=== PATIENT | male | born 1965 | race Caucasian/White ===

== ENCOUNTER 2022-10-12 15:38 | Outpatient (OUT) | payer OTHER, SELFPAY ==
[2022-10-12 16:20] LABS: Basophils Absolute Auto 0.1 10^3/uL (0.0-0.1); Basophils Percent Auto 0.6 % (0.2-2.0); Eosinophils Absolute Auto 0.2 10^3/uL (0.0-0.7); Eosinophils Percent Auto 2.6 % (0.9-7.0); Hematocrit 47.7 % (42.0-54.0); Hemoglobin 15.4 g/dL (14.0-18.0); Immature Granulocytes Abs Auto 0.04 10^3/uL (0.00-0.03); Immature Granulocytes Pct Auto 0.5 % (0.0-0.5); Lymphocytes Absolute Auto 2.5 10^3/uL (1.2-3.8); Lymphocytes Percent Auto 31.2 % (20.5-60.0); Mean Corpuscular HGB Conc 32.3 g/dL (29.9-35.2); Mean Corpuscular Hemoglobin 31.2 pg (25.9-34.0); Mean Corpuscular Volume 96.6 fL (80.0-94.0); Mean Platelet Volume 11.2 fL (9.5-13.5); Monocytes Absolute Auto 0.7 10^3/uL (0.3-0.8); Monocytes Percent Auto 8.2 % (1.7-12.0); Neutrophils Absolute Auto 4.6 10^3/uL (1.4-6.5); Neutrophils Percent Auto 56.9 % (43.0-75.0); Platelet Count 231 10^3/uL (150-450); Red Blood Count 4.94 10^6/uL (4.70-6.10); Red Cell Distribution Width 13.3 % (11.0-15.0); White Blood Count 8.1 10^3/uL (4.0-11.0)
[2022-10-12 16:30] LABS: Estimated Average Glucose 126 mg/dL
[2022-10-12 16:56] LABS: Prostate Specific Antigen Scrn 1.74 ng/mL (<=4.00)
[2022-10-12 17:05] LABS: Alanine Aminotransferase 37 U/L (16-63); Albumin Globulin Ratio 0.8; Albumin Level 3.8 g/dL (3.4-5.0); Alkaline Phosphatase 73 U/L (46-116); Anion Gap 13.9; Aspartate Amino Transferase 14 U/L (15-37); BUN Creatinine Ratio 14.1; Bilirubin Direct 0.2 mg/dL (0.0-0.2); Bilirubin Total 1.2 mg/dL (0.2-1.0); Calcium 9.2 mg/dL (8.5-10.1); Carbon Dioxide 28.1 mmol/L (21.0-32.0); Chloride 103 mmol/L (98-107); Chol HDL Ratio 4.4; Cholesterol 172 mg/dL (<=200); Estimated GFR (African America 46 (>=60); Estimated GFR (Non-African Ame 38 (>=60); Globulin 4.5 g/dL; Glucose 98 mg/dL (74-106); HDL Cholesterol 39 mg/dL (40-60); Sodium 141 mmol/L (136-145); Thyroid Stimulating Hormone 1.961 uIU/mL (0.358-3.740); Total Protein 8.3 g/dL (6.4-8.2); Triglycerides 110 mg/dL (<=150)
== END 2022-10-12 15:39 ==
PROVIDERS: PCP Family Medicine; Visit Provider Family Medicine
DX: R60.9 Edema, unspecified (principal); R06.09 Other forms of dyspnea; E78.5 Hyperlipidemia, unspecified; I11.0 Hypertensive heart disease with heart failure; I50.30 Unspecified diastolic (congestive) heart failure; R73.09 Other abnormal glucose
CPT/HCPCS: 36415; 80048; 80061; 80076; 83036; 83880; 84443; 85025; G0103

== ENCOUNTER 2022-10-25 07:58 | Outpatient (OUT) | payer OTHER, SELFPAY ==
--- NOTE | 2022-10-25 08:00 | CA_ITS ---
Patient: ROB FRANK Exam Date: 10/25/2022 : 1965 Gender:M Ordering : DR Storm Guevara . Admission #: [id number] Family : Order #: [id number] CLICK HERE TO VIEW EXAM ECHOCARDIOGRAM REPORT PROCEDURE: CA ECHO DOPPLER COMPLETE INDICATIONS: Dyspnea on exertion, edema, h/o ablation COMPARISON: None. DESCRIPTION: COMPLETE ECHOCARDIOGRAM Real-time transthoracic echocardiography with 2D, M-mode, spectral and color flow Doppler performed. QUALITY: Technical quality was good. LEFT VENTRICLE: Normal chamber size. Normal systolic function. LV EF: Normal left ventricular ejection fraction, (>55%). DIASTOLIC: Not adequately assessed due to heart rhythm. ATRIAL SEPTUM: Visually appears intact. LEFT ATRIUM: Moderate dilatation. RIGHT ATRIUM: Moderate dilatation. RIGHT VENTRICLE: Normal chamber size. Normal systolic function. TRICUSPID VALVE: Normal mobility and thickness. No stenosis with mild regurgitation. Doppler studies reveal moderately (45-60) elevated right sided pressures. RVSP 50 mmHg MITRAL VALVE: Normal mobility and thickness. No evidence of mitral valve stenosis. There is no mitral annular calcification. Trivial mitral regurgitation. AORTIC VALVE: Normal trileaflet appearance. No visible sclerosis. Normal leaflet mobility. No evidence of aortic valve stenosis. No aortic regurgitation. AORTIC ROOT: Normal diameter and appearance. PULMONIC VALVE: Normal thickness and mobility. No stenosis. No regurgitation. PERICARDIUM: No evidence of pericardial effusion. IVC: IVC is dilated (3.1 cm) with no collapse. PLEURA: CONCLUSION: 1. Normal left ventricular systolic function. LVEF is 55 to 60%. 2. Normal right ventricular size and systolic function. 3. Moderate biatrial dilatation. 4. Mild tricuspid regurgitation. 5. Moderately elevated right-sided pressures. RVSP is 50 mmHg. Adult Echocardiography Procedure Report Left Ventricle LVEDD (3.7 - 5.6 cm): 4.72 cm LVESD (2.2 - 4.0 cm): 2.59 cm LVIVS thickness (0.6 - 1.2 cm): 1.50 cm LVPW thickness (0.5 - 1.0 cm): 1.16 cm LVOT Max Gradient: 1.86 mm[Hg], 2.34 mm[Hg] LVOT Area (cm2): 0.72 m/s Peak Velocity (LVOT): 0.68 m/s, 0.76 m/s LVOT Diameter 2.35 cm Left Atrium LA Volume Index (2D A2C): 44.43 ml/m2 Left Atrium Systolic Dimension: 4.13 cm Mitral Valve Mitral Valve E-Wave Peak Velocity: 0.96 m/s Right Ventricle Aorta AO Root Diam: 3.66 cm Aortic Valve AoV Area (Peak Hesham): 3.33 cm2, 3.31 cm2, 3.34 cm2 Peak Velocity(Antegrade Flow): 0.89 m/s, 0.99 m/s Peak Gradient(Antegrade Flow): 3.17 mm[Hg], 3.91 mm[Hg] Tricuspid Valve Peak Velocity (Regurgitant Flow): 2.97 m/s Pulmonic Valve Peak Velocity: 0.76 m/s Peak Gradient: 2.31 mm[Hg], 2.27 mm[Hg] Right Atrium Right Atrium Systolic Pressure: 84.80 ml, 84.80 ml Dictated by: Erick Wade M.D. on 10/26/2022 at 17:50 Approved by: Erick Wade M.D. on 10/26/2022 at 17:53
== END 2022-10-25 07:59 | disposition home or self-care (01) ==
LOC: CARD 07:58
PROVIDERS: PCP Family Medicine; Visit Provider Family Medicine
DX: R60.9 Edema, unspecified (principal); R06.09 Other forms of dyspnea; I07.1 Rheumatic tricuspid insufficiency
CPT/HCPCS: 93306

== ENCOUNTER 2023-07-17 14:23 | Outpatient (OUT) | payer OTHER, SELFPAY ==
[2023-07-17 14:44] LABS: Basophils Absolute Auto 0.1 10^3/uL (0.0-0.1); Basophils Percent Auto 0.8 % (0.2-2.0); Eosinophils Absolute Auto 0.2 10^3/uL (0.0-0.7); Hematocrit 45.6 % (42.0-54.0); Hemoglobin 14.6 g/dL (14.0-18.0); Immature Granulocytes Abs Auto 0.06 10^3/uL (0.00-0.03); Immature Granulocytes Pct Auto 0.7 % (0.0-0.5); Lymphocytes Absolute Auto 2.3 10^3/uL (1.2-3.8); Lymphocytes Percent Auto 27.3 % (20.5-60.0); Mean Corpuscular Hemoglobin 32.3 pg (25.9-34.0); Mean Corpuscular Volume 100.9 fL (80.0-94.0); Mean Platelet Volume 10.7 fL (9.5-13.5); Monocytes Absolute Auto 0.8 10^3/uL (0.3-0.8); Monocytes Percent Auto 9.4 % (1.7-12.0); Neutrophils Percent Auto 59.8 % (43.0-75.0); Platelet Count 249 10^3/uL (150-450); Red Blood Count 4.52 10^6/uL (4.70-6.10); Red Cell Distribution Width 13.2 % (11.0-15.0); White Blood Count 8.4 10^3/uL (4.0-11.0)
[2023-07-17 14:59] LABS: BUN Creatinine Ratio 11.5; Calcium 8.7 mg/dL (8.5-10.1); Carbon Dioxide 26.3 mmol/L (21.0-32.0); Chloride 105 mmol/L (98-107); Estimated GFR (African America 55 (>=60); Estimated GFR (Non-African Ame 45 (>=60); Glucose 99 mg/dL (74-106); Potassium 4.3 mmol/L (3.5-5.1); Sodium 141 mmol/L (136-145)
[2023-07-17 15:04] LABS: INR 1.01; Prothrombin Time 10.7 sec (9.0-11.6)
== END 2023-07-17 14:24 | disposition home or self-care (01) ==
PROVIDERS: PCP Family Medicine; Visit Provider Nurse Practitioner
DX: I48.91 Unspecified atrial fibrillation (principal)
CPT/HCPCS: 36415; 80048; 85025; 85610

== ENCOUNTER 2023-07-26 09:10 | Inpatient (IN) | payer OTHER, SELFPAY ==
[2023-07-26] VITALS (20 sets, daily range): BP systolic 108–148; BP diastolic 71–101; PULSE 86–114; RESP 2–37; TEMP 36.5–36.8; O2SAT 89–96; BMI 49.8; BMI 51.3
--- OUTSIDE RECORDS SUMMARY | 2023-07-26 09:15 | XMS_ITS | CCD ---
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 Care Disintegrator Operator Name Role Phone DR COSTA GUEVARA Attending Unavailable DR COSTA GUEVARA Consulting Unavailable DR COSTA GUEVARA Admitting Unavailable MD Costa Guevara Primary Care Provider [phone] DO Bassem Lopez Emergency Provider DO Arturo Dolan Admit Provider DO Arturo Dolan Attending Provider MD Costa Guevara Primary Care Provider [phone] KENDRICK Mckinney Emergency Provider Edwin Mckinney Attending Unavailable Edwin Mckinney Admitting Unavailable Costa Guevara Primary Care Unavailable [place] Consulting Unavailable Arturo Dolan Attending UnavailArturo Tomlinson Admitting UnavailCosta Petersen Primary Care Unavailable Delvis Myles Consulting Unavailable Mony Orozco Consulting Unavailable Tejas Schreiber Consulting Unavail able Linh Paz Consulting Unavailable Anthony Rossi Consulting Unavailab Leigh Lopez Consulting Unavailable Sweta Colbert Consulting Unavailable Carrie Benedict Consulting Unavailab Corky Bolden Consulting Unavailable Shanel Card Consulting Unavailable Shana Angeles Consulting Unavailable Medications Current Medications Medication Drug Class(es) Dates Sig (Normalized) Sig (Original) acetaminophen 325 mg / oxyCODONE hydrochloride 5 mg oral tablet (1 source) Opioid Agonist Start: 05-28-2023 take 1 tablet by mouth every six hours Oxycodone-Acetamin ophen (Percocet) 5-325 mg tablet Active 1 TAB PO Q6H 12 3 May 28, 2023 apixaban 5 mg oral tablet (2 sources) Factor Xa Inhibitor Start: 05-27-2023 take 1 tablet by mouth twice daily Apixaban (Eliquis) 5 mg Tablet Active 5 MG PO Twice daily 60 May 27, 2023 12:00am cefuroxime 500 mg oral tablet (2 sources) Cephalosporin Antibacterial Start: 05-27-2023 take 500 mg by mouth twice daily Cefuroxime Axetil Active 500 MG PO Twice daily 20 May 27, 2023 12:00am diclofenac sodium 75 mg delayed release oral tablet (2 sources) Nonsteroidal Anti-inflammatory Drug Start: 05-24-2023 take 75 mg by mouth twice daily Diclofenac Sodium Active 75 MG PO Twice daily May 24, 2023 12:00am 24 hr dilTIAZem hydrochloride 120 mg extended release oral capsule (2 sources) Calcium Channel Anel Start: 05-27-2023 take 120 mg by mouth once daily Diltiazem Hcl Active 120 MG PO Daily 30 May 27, 2023 12:00am furosemide 40 mg oral tablet (3 sources) Loop Diuretic Start: 10-09-2019 take 1 tablet by mouth once daily in the morning Furosemide (Lasix) 40 mg tablet Active 40 MG PO Every morning October 08, 2019 11:00pm pantoprazole 40 mg delayed release oral tablet (3 sources) Proton Pump Inhibitor Start: 03-24-2019 take 1 tablet by mouth once daily Pantoprazole (Protonix) 40 mg tablet,delayed release (DR/EC) Active 40 MG PO Daily March 24, 2019 12:00am microencapsulated potassium chloride 20 meq extended release oral tablet (2 sources) Start: 05-27-2023 Potassium Chloride (Klor-Con M20) 20 mEq Tablet,Er Particles/Crystals Active 20 MEQ PO Daily May 27, 2023 12:00am saccharomyces boulardii 250 mg oral capsule (2 sources) Start: 05-27-2023 take 250 mg by mouth twice daily at mealtime Saccharomyces Boulardii Active 250 MG PO Twice daily with meals May 27, 2023 12:00am Completed/Discontinued Medications Medication Drug Class(es) Dates Sig (Normalized) Sig (Original) acetaminophen 325 mg / HYDROcodone bitartrate 5 mg oral tablet (3 sources) Opioid Agonist Start: 03-24-20 End: 10-08-19 take 1 tablet by mouth every six hours Hydrocodone-Acetaminop hen ([place]) 5-325 mg tablet Discontinued 1 TAB PO Q6H 02 05March 24, 2019 October 08, 2019 1:42pm amLODIPine 10 mg oral tablet (2 sources) Dihydropyridine Calcium Channel Anel Start: 05-24-19 End: 05-27-19 take 10 mg by mouth once daily Amlodipine Discontinued 10 MG PO Daily May 24, 2023 12:00am May 27, 2023 11:59am amoxicillin 875 mg / clavulanate 125 mg oral tablet (3 sources) Penicillin-class Antibacterial Start: 03-24-20 End: 10-08-19 take 1 tablet by mouth twice daily Amoxicillin-Pot Clavulanate (Augmentin) 875-125 mg tablet Discontinued 1 TAB PO Twice daily 22 02March 24, 2019 12:00am October 08, 2019 1:42pm carvedilol 25 mg oral tablet (2 sources) alpha-Adrenergic Anel, beta-Adrenergic Anel Start: 05-24-19 End: 05-27-19 take 25 mg by mouth once daily Carvedilol Discontinued 25 MG PO Daily May 24, 2023 12:00am May 27, 2023 11:59am diphenhydrAMINE hydrochloride 25 mg oral capsule (3 sources) Histamine-1 Receptor Antagonist Start: 09-04-19 End: 05-24-19 take 1 capsule by mouth every six hours Diphenhydramine Hcl (Benadryl) 25 mg capsule Discontinued 25 MG PO Q6H September 02, 2020 11:00pm May 24, 2023 8:40pm until resolution of severe allergic reaction doxycycline hyclate 100 mg oral tablet (3 sources) Tetracycline-class Drug Start: 02-29-20 End: 05-24-19 take 100 mg by mouth twice daily Doxycycline Hyclate Discontinued 100 MG PO Twice daily February 27, 2021 11:00pm May 24, 2023 8:40pm hydroCHLOROthiazide 25 mg oral tablet (2 sources) Thiazide Diuretic Start: 05-24-19 End: 05-27-19 take 25 mg by mouth once daily Hydrochlorothiazide Discontinued 25 MG PO Daily May 24, 2023 12:00am May 27, 2023 11:59am ibuprofen 800 mg oral tablet (3 sources) Nonsteroidal Anti-inflammatory Drug Start: 10-08-19 End: 05-24-19 take 800 mg by mouth three times daily Ibuprofen Discontinued 800 MG PO Three times daily October 07, 2019 11:00pm May 24, 2023 8:40pm irbesartan 300 mg oral tablet (2 sources) Angiotensin 2 Receptor Anel Start: 05-24-19 End: 05-27-19 24 take 300 mg by mouth once daily Irbesartan Discontinued 300 MG PO Daily May 24, 2023 12:00am May 27, 2023 11:59am losartan potassium 50 mg oral tablet (3 sources) Angiotensin 2 Receptor Anel Start: 10-09-19 End: 05-24-19 24 take 50 mg by mouth once daily Losartan Discontinued 50 MG PO Daily October 08, 2019 11:00pm May 24, 2023 8:41pm meclizine hydrochloride 25 mg oral tablet (3 sources) Antiemetic Start: 09-04-19 End: 05-24-19 take 25 mg by mouth three times daily Meclizine Discontinued 25 MG PO Three times daily September 02, 2020 11:00pm May 24, 2023 8:43pm Problems Problem Classification Problem Date Documented Date Episodic/Chronic Abdominal hernia (3 sources) Hiatal hernia; Translations: [Diaphragmatic hernia without obstruction or gangrene] 04-17-2023 Episodic Bacterial infection; unspecified site (11 sources) Bacteremia caused by Gram-positive bacteria; Translations: [Bacteremia] Onset: 05-24-2023 05-26-2023 Episodic Cardiac dysrhythmias (11 sources) Supraventricular tachycardia; Translations: [Supraventricular tachycardia] Onset: 05-24-2023 04-17-2023 Chronic Conditions associated with dizziness or vertigo (3 sources) Benign paroxysmal positional vertigo; Translations: [Benign paroxysmal vertigo, unspecified ear] 04-17-2023 Episodic Congestive heart failure; nonhypertensive (6 sources) Congestive heart failure; Translations: [Heart failure, unspecified] 04-17-2023 Chronic Diabetes mellitus without complication (8 sources) Prediabetes; Translations: [Prediabetes] Onset: 01-19-2024 12-13-2023 Episodic E Codes: Natural/environment (3 sources) Dog bite - wound; Translations: [Bitten by dog, initial encounter] 04-17-2023 Episodic Esophageal disorders (3 sources) Gastroesophageal reflux disease; Translations: [Gastro-esophageal reflux disease without esophagitis] 04-17-2023 Chronic Essential hypertension (6 sources) Benign hypertension; Translations: [Essential (primary) hypertension] 04-17-2023 Chronic Lymphadenitis (4 sources) Localized enlarged lymph nodes; Translations: [LOCALIZED ENLARGED LYMPH NODES] Onset: 03-10-2021 Episodic Other connective tissue disease (1 source) Foot pain; Translations: [Pain in right foot] 05-28-2023 Episodic Other lower respiratory disease (3 sources) Dyspnea; Translations: [Dyspnea, unspecified] 04-17-2023 Episodic Other lower respiratory disease (3 sources) Hypoxia; Translations: [Hypoxemia] 05-24-2023 Episodic Other lower respiratory disease (4 sources) Hypoxemia; Translations: [Hypoxemia] Onset: 05-24-2023 05-24-2023 Episodic Other nutritional; endocrine; and metabolic disorders (3 sources) Morbid obesity; Translations: [Morbid (severe) obesity due to excess calories] 04-17-2023 Chronic Other nutritional; endocrine; and metabolic disorders (2 sources) Body mass index 40+ - severely obese; Translations: [Body mass index (BMI) 50.0-59.9, adult] 05-24-2023 Chronic Other nutritional; endocrine; and metabolic disorders (3 sources) Body mass index (BMI) 50.0-59.9, adult; Translations: [Body Mass Index 50.0-59.9, adult] Onset: 05-24-2023 05-24-2023 Chronic Other skin disorders (1 source) Unspecified skin changes; Translations: [Unspecified skin changes] Onset: 05-24-2023 Episodic Pneumonia (except that caused by tuberculosis or sexually transmitted disease) (7 sources) Pneumonia; Translations: [Pneumonia, unspecified organism] Onset: 05-24-2023 05-24-2023 Episodic Residual codes; unclassified (2 sources) Hypoxia; Translations: [Idiopathic sleep related nonobstructive alveolar hypoventilation] 05-27-2023 Chronic Residual codes; unclassified (1 source) Idiopathic sleep related nonobstructive alveolar hypoventilation; Translations: [Idiopathic sleep related nonobstructive alveolar hypoventilation] Onset: 05-24-2023 Chronic Residual codes; unclassified (2 sources) Edema of lower extremity; Translations: [Localized edema] 05-24-2023 Episodic Residual codes; unclassified (3 sources) Localized edema; Translations: [Edema] Onset: 05-24-2023 05-24-2023 Episodic Septicemia (except in labor) (7 sources) Sepsis; Translations: [Sepsis, unspecified organism] Onset: 05-24-2023 05-24-2023 Episodic Skin and subcutaneous tissue infections (3 sources) Cellulitis; Translations: [Cellulitis, unspecified] 04-17-2023 Episodic Unclassified (1 source) Pain in right foot; Translations: [Pain in right foot] Onset: 05-28-2023 Results Test Name Value Interpretation Reference Range Facility US venous duplex LE RTon US venous duplex LE RT [facility] [place] [address] Ultrasound Report Signed Patient: Tejas Ray MR#: [id number] 0 : 1965 Acct:[id number] Age/Sex: 58 / M ADM Date: 05/28/23 Loc: ER Room: Type: [facility] ER Attending Dr: Ordering Provider: Edwin Mckinney PA-C Date of Service: 05/28/23 US/US venous duplex LE RT: foot swelling Copies to: Edwin Mckinney PA-C RIGHT LOWER EXTREMITY VENOUS DUPLEX INDICATION: Swollen right leg Unilateral right lower extremity venous duplex Doppler study was obtained utilizing B-mode, color- flow and spectral Doppler. FINDINGS: The right common femoral, femoral, and popliteal veins showed adequate compressibility, color-flow and augmentation. The right posterior tibial and peroneal veins were compressible, as well as proximal greater saphenous vein. The contralateral left common femoral vein was compressible with color-flow and augmentation. US/US venous duplex LE RT IMPRESSION: NO EVIDENCE OF DEEP VENOUS THROMBOSIS IN THE RIGHT LOWER EXTREMITY. NO SUPERFICIAL THROMBOPHLEBITIS WAS NOTED. Impression dictated by: Kulwinder Ma M.D.05/29/2023 9:08 AM Dictation Location: [place] [address] Tech: Kendra Chaves Transcribed By: DARLING 05/29/23907 Dictated By: Kulwinder Ma MD 05/29/23906 Signed By: 05/29/23907 Normal [facility] Activated partial thrombopla stin time (aPTT) in platelet poor plasma by coagulation aOrdered By: Edwin Mckinney on 05-28-2023 aPTT Coag (PPP) [Time] 35.7 s 25.1-36.5 [facility] Comment on above: A hematocrit value g reater than 55% may lead to inaccurate results in coagulation testing. Patients having hematocrit values >55% require a special collection tube for coagulation studies. Please contact the laboratory at [phone] for redraw instructions. Alanine aminotransferase [En zymatic activity/volume] in Serum or PlasmaOrdered By: Edwin Mckinney on 05-28-2023 ALT [Catalytic activity/Vol] 29 U/L 7-52 [facility] Albumin [Mass/volume] in Ser um or Plasma by Bromocresol green (BCG) dye binding methoOrdered By: Edwin Mckinney on 05-28-2023 Albumin BCG dye [Mass/Vol] 4.3 g/dL 3.5-5.7 [facility] Alkaline phosphatase [Enzyma tic activity/volume] in Serum or PlasmaOrdered By: Edwin Mckinney on 05-28-2023 ALP [Catalytic activity/Vol] 73 U/L 34-104 [facility] Aspartate aminotransferase [ Enzymatic activity/volume] in Serum or PlasmaOrdered By: Edwin Mckinney on 05-28-2023 AST [Catalytic activity/Vol] 18 U/L 13-39 [facility] Basic Metabolic Panelon 05-07 Anion gap [Moles/Vol] 10.2 mmol/L Normal 6.0-15.0 [facility] Comment on above: Performed By: #### P TT, HEPATIC, BMP, PT #### [facility] [address] Calcium [Mass/Vol] 9.2 mg/dL Normal 8.6-10.3 [facility] Comment on above: Performed By: #### P TT, HEPATIC, BMP, PT #### [facility] [address] [place] [address] [place] Chloride [Moles/Vol] 102 mmol/L Normal 98-107 [facility] Comment on above: Performed By: #### P TT, HEPATIC, BMP, PT #### [facility] [address] CO2 [Moles/Vol] 30.9 mmol/L Normal 21.0-31.0 [facility] Comment on above: Performed By: #### P TT, HEPATIC, BMP, PT #### [facility] [address] [place] [address] [place] Creatinine [Mass/Vol] 1.40 mg/dL High 0.70-1.30 [facility] Comment on above: Performed By: #### P TT, HEPATIC, BMP, PT #### [facility] [address] [place] [address] [place] Creatinine Clr Calc Pharmacy 73.58 [facility] Comment on above: Result Comment: PERF ORMED BY: [place] [address] PATHOLOGIST SANDSTONE INSPECTOR REPAIRER ROBERTO OCAMPO M.D. Performed By: #### P TT, HEPATIC, BMP, PT #### [facility] [address] GFR/1.73 sq M.predicted MDRD (S/P/Bld) [Vol rate/Area] 57.540 mL/min/{1.73_m2} Normal [facility] Comment on above: Performed By: #### P TT, HEPATIC, BMP, PT #### [facility] [address] [place] [address] [place] Glucose [Mass/Vol] 97 mg/dL Normal 70-100 [facility] Comment on above: Result Comment: [place] Glucose Reference Range is dependent on time and content of last meal. Glucose of more than 200 mg/dL in a nonstressed, ambulatory subject supports the diagnosis of Diabetes Mellitus. ADA recommended reference range Performed By: #### P TT, HEPATIC, BMP, PT #### [facility] [address] Potassium [Moles/Vol] 4.1 mmol/L Normal 3.5-5.1 [facility] Comment on above: Performed By: #### P TT, HEPATIC, BMP, PT #### [facility] [address] [place] [address] [place] Sodium [Moles/Vol] 139 mmol/L Normal 136-145 [facility] Comment on above: Performed By: #### P TT, HEPATIC, BMP, PT #### [facility] [address] [place] [address] [place] Urea nitrogen [Mass/Vol] 24 mg/dL Normal 7-25 [facility] Comment on above: Performed By: #### P TT, HEPATIC, BMP, PT #### [facility] [address] [place] [address] [place] Basophils Auto (Bld) [#/Vol] Ordered By: Edwin Mckinney on 05-28-2023 Basophils (Bld) [#/Vol] 0.1 10*3/uL 0.0-0.2 [facility] Basophils/100 WBC Auto (Bld) Ordered By: Edwin Mckinney on 05-28-2023 Basophils/100 WBC (Bld) 0.6 % . [facility] Bilirubin.direct [Mass/volum e] in Serum or PlasmaOrdered By: Edwin Mckinney on 05-28-2023 Bilirubin.direct [Mass/Vol] 0.20 mg/dL 0.03-0.18 [facility] Bilirubin.total [Mass/volume ] in Serum or PlasmaOrdered By: Edwin Mckinney on 05-28-2023 Bilirubin [Mass/Vol] 1.0 mg/dL 0.3-1.0 [facility] Calcium [Mass/volume] in Ser um or PlasmaOrdered By: Edwin Mckinney on 05-28-2023 Calcium [Mass/Vol] 9.2 mg/dL 8.6-10.3 [facility] Carbon dioxide, total [Moles /volume] in Serum or PlasmaOrdered By: Edwin Mckinney on 05-28-2023 CO2 [Moles/Vol] 30.9 mmol/L 21.0-31.0 [facility] Chloride [Moles/volume] in S rafy or PlasmaOrdered By: Edwin Mckinney on 05-28-2023 Chloride [Moles/Vol] 102 mmol/L 98-107 [facility] Complete Blood Count Auto Di ffon 05-28-2023 Basophils (Bld) [#/Vol] 0.1 10*3/uL Normal 0.0-0.2 [facility] Comment on above: Result Comment: PERF ORMED BY: [place] [address] PATHOLOGIST SANDSTONE INSPECTOR REPAIRER ROBERTO OCAMPO M.D. Performed By: #### C BC #### [address] Basophils/100 WBC (Bld) 0.6 % Normal . [facility] Comment on above: Performed By: #### C BC #### [address] Eosinophils (Bld) [#/Vol] 0.3 10*3/uL Normal 0.0-0.45 [facility] Comment on above: Performed By: #### C BC #### [address] Eosinophils/100 WBC (Bld) 2.1 % Normal . [facility] Comment on above: Performed By: #### C BC #### [address] Erythrocyte distribution width (RBC) [Ratio] 14.0 % Normal 12.0-14.8 [facility] Comment on above: Performed By: #### C BC #### [address] Hematocrit (Bld) [Volume fraction] 42.1 % Normal 38.8-50.0 [facility] Comment on above: Performed By: #### C BC #### [address] Hemoglobin (Bld) [Mass/Vol] 14.1 g/dL Normal 13.0-17.0 [facility] Comment on above: Performed By: #### C BC #### [address] Lymphocytes (Bld) [#/Vol] 1.8 10*3/uL Normal 1.00-4.8 [facility] Comment on above: Performed By: #### C BC #### [address] Lymphocytes/100 WBC (Bld) 14.6 % Normal . [facility] Comment on above: Performed By: #### C BC #### [address] MCH (RBC) [Entitic mass] 32.6 pg Normal 27.5-35.2 [facility] Comment on above: Performed By: #### C BC #### [address] MCV (RBC) [Entitic vol] 97.3 fL Normal 83.5-101 [facility] Comment on above: Performed By: #### C BC #### [address] Mean Corpuscular HGB Conc 33.5 g/dL Normal 32.5-35.6 [facility] Comment on above: Performed By: #### C BC #### [address] Monocytes (Bld) [#/Vol] 1.1 10*3/uL High 0.0-0.8 [facility] Comment on above: Performed By: #### C BC #### [address] Monocytes/100 WBC (Bld) 21.69 % High 0.00-20.00 [facility] Comment on above: Result Comment: For adults in ED, MDW > 20.0 may be associated with a higher risk of sepsis during the first 12 hrs of hospital admission Performed By: #### C BC #### [address] Monocytes/100 WBC (Bld) 8.7 % Normal . [facility] Comment on above: Performed By: #### C BC #### [facility] [address] [place] [address] [place] Neutrophils (Bld) [#/Vol] 9.2 10*3/uL High 1.8-7.7 [facility] Comment on above: Performed By: #### C BC #### [facility] [address] Neutrophils/100 WBC (Bld) 74.0 % Normal . [facility] Comment on above: Performed By: #### C BC #### [facility] [address] NRBC% 0.1 /100{WBC} Normal 0-0.5 [facility] Comment on above: Performed By: #### C BC #### [address] Platelet mean volume (Bld) [Entitic vol] 9.3 fL Normal 6.6-10.1 [facility] Comment on above: Performed By: #### C BC #### [address] Platelets (Bld) [#/Vol] 296 10*3/uL Normal 150-450 [facility] Comment on above: Performed By: #### C BC #### [address] RBC (Bld) [#/Vol] 4.32 10*6/uL Normal 3.90-5.[address] [facility] Comment on above: Performed By: #### C BC #### [address] WBC (Bld) [#/Vol] 12.5 10*3/uL High 4.1-10.[address] [facility] Comment on above: Performed By: #### C BC #### [address] Creatinine [Mass/volume] in Serum or PlasmaOrdered By: Edwin Mckinney on 05-28-2023 Creatinine [Mass/Vol] 1.40 mg/dL 0.70-1.30 [facility] ECG 12 lead ECGon 05-28-2023 ECG 12 lead ECG [facility] [place] [address] [place] [address] Electrocardiograph Report Signed Patient: Tejas Ray MR#: [id number] 0 : 1965 Acct:[id number] Age/Sex: 58 / M ADM Date: 05/28/23 Loc: ER Room: Type: [facility] ER Attending Dr: Ordering Provider: Edwin Mckinney PA-C Date of Service: 05/28/23 ECG/ECG 12 lead ECG: Extremity Injury, Lower Copies to: Test Reason : Blood Pressure : 133/089 mmHG Vent. Rate : 118 BPM Atrial Rate : 140 BPM P-R Int : 000 ms QRS Dur : 082 ms QT Int : 320 ms P-R-T Axes : 000 203 027 degrees QTc Int : 448 ms Atrial fibrillation with rapid ventricular response Right superior axis deviation Septal infarct , age undetermined Abnormal ECG When compared with ECG of 25-MAY-2023 08:12, No significant change was found Confirmed by KENIA WILSON DO ([id number]) on 05/28/2023 3:02:52 PM Referred By: Electronically Signed By:KENIA WILSON DO Transcribed By: MUS Signed By Kenia Wilson DO 05/28 1503 Normal [facility] Eosinophils Auto (Bld) [#/Vo l]Ordered By: Edwin Mckinney on 05-28-2023 Eosinophils (Bld) [#/Vol] 0.3 10*3/uL 0.0-0.45 [facility] Eosinophils/100 WBC Auto (Bl d)Ordered By: Edwin Mckinney on 05-28-2023 Eosinophils/100 WBC (Bld) 2.1 % . [facility] Erythrocyte distribution wid th Auto (RBC) [Ratio]Ordered By: Edwin Mckinney on 05-28-2023 Erythrocyte distribution width (RBC) [Ratio] 14.0 % 12.0-14.8 [facility] Globulin Calc (S) [Mass/Vol] Ordered By: Edwin Mckinney on 05-28-2023 Globulin (S) [Mass/Vol] 4.2 g/dL [facility] Glucose [Mass/volume] in Ser um or PlasmaOrdered By: Edwin Mckinney on 05-28-2023 Glucose [Mass/Vol] 97 mg/dL 70-100 [facility] Comment on above: ADA recommended refe rence rangeRandom Glucose Reference Range is dependent on time and content of last meal. Glucose of more than 200 mg/dL in a nonstressed, ambulatory subject supports the diagnosis of Diabetes Mellitus. Hematocrit Auto (Bld) [Volum e fraction]Ordered By: Edwin Mckinney on 05-28-2023 Hematocrit (Bld) [Volume fraction] 42.1 % 38.8-50.0 [facility] Hemoglobin [Mass/volume] in BloodOrdered By: Edwin Mckinney on 05-28-2023 Hemoglobin (Bld) [Mass/Vol] 14.1 g/dL 13.0-17.0 [facility] Hepatic Panelon 05-28-2023 Albumin [Mass/Vol] 4.3 g/dL Normal 3.5-5.7 [facility] Comment on above: Performed By: #### P TT, HEPATIC, BMP, PT #### [facility] [address] Albumin/Globulin [Mass ratio] 1.0 {ratio} Normal [facility] Comment on above: Performed By: #### P TT, HEPATIC, BMP, PT #### [facility] [address] ALP [Catalytic activity/Vol] 73 U/L Normal 34-104 [facility] Comment on above: Performed By: #### P TT, HEPATIC, BMP, PT #### [facility] [address] [place] [id number] [place] ALT [Catalytic activity/Vol] 29 U/L Normal 7-52 [facility] Comment on above: Performed By: #### P TT, HEPATIC, BMP, PT #### [facility] [address] [place] [id number] [place] AST [Catalytic activity/Vol] 18 U/L Normal 13-39 [facility] Comment on above: Performed By: #### P TT, HEPATIC, BMP, PT #### [facility] [address] [place] [address] [place] Bilirubin [Mass/Vol] 1.0 mg/dL Normal 0.3-1.0 [facility] Comment on above: Performed By: #### P TT, HEPATIC, BMP, PT #### [facility] [address] Bilirubin,Indirect 0.8 mg/dL Normal [facility] Comment on above: Performed By: #### P TT, HEPATIC, BMP, PT #### [facility] [address] Bilirubin.indirect [Mass/Vol] 0.20 mg/dL High 0.03-0.18 [facility] Comment on above: Performed By: #### P TT, HEPATIC, BMP, PT #### [facility] [address] Globulin (S) [Mass/Vol] 4.2 g/dL Normal [facility] Comment on above: Performed By: #### P TT, HEPATIC, BMP, PT #### [facility] [address] Protein [Mass/Vol] 8.5 g/dL Normal 6.4-8.9 [facility] Comment on above: Performed By: #### P TT, HEPATIC, BMP, PT #### [facility] [address] INR in Platelet poor plasma by Coagulation assayOrdered By: Edwin Mckinney on 05-28-2023 INR Coag (PPP) [Relative time] 1.4 {INR} [facility] Comment on above: INR Therapeutic Rang e A) Pre- and Peroperative OAT started two weeks before surgery. NOT HIP SURGERY: 1.5 - 2.5 HIP SURGERY: 2 - 3B) Primary and secondary prevention of venous THROMBOSIS: 2 - 3C) Active venous thrombosis, pulmonary embolismand prevention of recurrent venous thrombosis: 2 - 3D) Prevention of arterial thromboembolismincluding patients with mechanical heart valves: 3 - 4.5 Leukocytes [#/volume] correc isaiah for nucleated erythrocytes in Blood by Automated counOrdered By: Edwin Mckinney on 05-28-2023 WBC corrected for nucl RBC Auto (Bld) [#/Vol] 12.5 10*3/uL 4.1-10.5 [facility] Lymphocytes Auto (Bld) [#/Vo l]Ordered By: Edwin Mckinney on 05-28-2023 Lymphocytes (Bld) [#/Vol] 1.8 10*3/uL 1.00-4.8 [facility] Lymphocytes/100 WBC Auto (Bl d)Ordered By: Edwin Mckinney on 05-28-2023 Lymphocytes/100 WBC (Bld) 14.6 % . [facility] MCH Auto (RBC) [Entitic mass ]Ordered By: Edwin Mckinney on 05-28-2023 MCH (RBC) [Entitic mass] 32.6 pg 27.5-35.2 [facility] MCHC Auto (RBC) [Mass/Vol]Or dered By: Edwin Mckinney on 05-28-2023 MCHC (RBC) [Mass/Vol] 33.5 g/dL 32.5-35.6 [facility] MCV Auto (RBC) [Entitic vol] Ordered By: Edwin Mckinney on 05-28-2023 MCV (RBC) [Entitic vol] 97.3 fL 83.5-101 [facility] Monocyte distribution width [Entitic volume] in Blood by AutomatedOrdered By: Edwin Mckinney on 05-28-2023 Monocyte distribution width Auto (Bld) [Entitic vol] 21.69 % 0.00-20.00 [facility] Comment on above: For adults in ED, MD W > 20.0 may be associated with a higher risk of sepsis during the first 12 hrs of hospital admission Monocytes Auto (Bld) [#/Vol] Ordered By: Edwin Mckinney on 05-28-2023 Monocytes (Bld) [#/Vol] 1.1 10*3/uL 0.0-0.8 [facility] Monocytes/100 WBC Auto (Bld) Ordered By: Edwin Mckinney on 05-28-2023 Monocytes/100 WBC (Bld) 8.7 % . [facility] Neutrophils Auto (Bld) [#/Vo l]Ordered By: Edwin Mckinney on 05-28-2023 Neutrophils (Bld) [#/Vol] 9.2 10*3/uL 1.8-7.7 [facility] Neutrophils/100 WBC Auto (Bl d)Ordered By: Edwin Mckinney on 05-28-2023 Neutrophils/100 WBC (Bld) 74.0 % . [facility] No Panel InformationOrdered By: Edwin Mckinney on 05-28-2023 Estimated GFR (CKD-EPI) 57.540 mL/Min [facility] Creatinine Clearance (Chem 73.58 [facility] Nucleated erythrocytes [Pres ence] in Blood by Automated countOrdered By: Edwin Mckinney on 05-28-2023 Nucleated RBC Auto Ql (Bld) 0.1 /100{WBC} 0-0.5 [facility] Partial Thromboplastin Timeo n 05-28-2023 aPTT Coag (Bld) [Time] 35.7 s Normal 25.1-36.5 [facility] Comment on above: Result Comment: A he matocrit value greater than 55% may lead to inaccurate results in coagulation testing. Patients having hematocrit values >55% require a special collection tube for coagulation studies. Please contact the laboratory at [phone] for redraw instructions. PERFORMED BY: [place] [address] PATHOLOGIST SANDSTONE INSPECTOR REPAIRER ROBERTO OCAMPO M.D. Performed By: #### P TT, HEPATIC, BMP, PT #### [address] Platelet mean volume Auto (B ld) [Entitic vol]Ordered By: Edwin Mckinney on 05-28-2023 Platelet mean volume (Bld) [Entitic vol] 9.3 fL 6.6-10.1 [facility] Platelets Auto (Bld) [#/Vol] Ordered By: Edwin Mckinney on 05-28-2023 Platelets (Bld) [#/Vol] 296 10*3/uL 150-450 [facility] Potassium [Moles/volume] in Serum or PlasmaOrdered By: Edwin Mckinney on 05-28-2023 Potassium [Moles/Vol] 4.1 mmol/L 3.5-5.1 [facility] Protein [Mass/volume] in Ser um or PlasmaOrdered By: Edwin Mckinney on 05-28-2023 Protein [Mass/Vol] 8.5 g/dL 6.4-8.9 [facility] Prothrombin Time INRon 05-28 INR Coag (PPP) [Relative time] 1.4 {INR} Normal [facility] Comment on above: Result Comment: INR Therapeutic Range A) Pre- and Peroperative OAT started two weeks before surgery. NOT HIP SURGERY: 1.5 - 2.5 HIP SURGERY: 2 - 3 B) Primary and secondary prevention of venous THROMBOSIS: 2 - 3 C) Active venous thrombosis, pulmonary embolism and prevention of recurrent venous thrombosis: 2 - 3 D) Prevention of arterial thromboembolism including patients with mechanical heart valves: 3 - 4.5 Performed By: #### P TT, HEPATIC, BMP, PT #### [facility] [address] [place] [id number] [facility] PT Coag (PPP) [Time] 16.2 s High 9.0-12.9 [facility] Comment on above: Result Comment: A he matocrit value greater than 55% may lead to inaccurate results in coagulation testing. Patients having hematocrit values >55% require a special collection tube for coagulation studies. Please contact the laboratory at [phone] for redraw instructions. Performed By: #### P TT, HEPATIC, BMP, PT #### [facility] [address] [place] [id number] [facility] Prothrombin time (PT)Ordered By: Edwin Mckinney on 05-28-2023 PT Coag (PPP) [Time] 16.2 s 9.0-12.9 [facility] Comment on above: A hematocrit value g reater than 55% may lead to inaccurate results in coagulation testing. Patients having hematocrit values >55% require a special collection tube for coagulation studies. Please contact the laboratory at [phone] for redraw instructions. RBC Auto (Bld) [#/Vol]Ordere d By: Edwin Mckinney on 05-28-2023 RBC (Bld) [#/Vol] 4.32 10*6/uL 3.90-5.[address] [facility] Serum or plasma albumin/glob ulin mass ratioOrdered By: Edwin Mckinney on 05-28-2023 Albumin/Globulin [Mass ratio] 1.0 {ratio} [facility] Serum or plasma anion gap de terminationOrdered By: Edwin Mckinney on 05-28-2023 Anion gap [Moles/Vol] 10.2 mmol/L 6.0-15.0 [facility] Serum or plasma non-glucuron idated bilirubin measurement (mass/volume)Ordered By: Edwin Mckinney on 05-28-2023 Bilirubin.indirect [Mass/Vol] 0.8 mg/dL [facility] Sodium [Moles/volume] in Ser um or PlasmaOrdered By: Edwin Mckinney on 05-28-2023 Sodium [Moles/Vol] 139 mmol/L 136-145 [facility] Urea nitrogen [Mass/volume] in Serum or PlasmaOrdered By: Edwin Mckinney on 05-28-2023 Urea nitrogen [Mass/Vol] 24 mg/dL 7-25 [facility] WBC Auto (Bld) [#/Vol]Ordere d By: Edwin Mckinney on 05-28-2023 WBC (Bld) [#/Vol] 12.5 10*3/uL 4.1-10.[address] [facility] XR chest 1V portableon 05-28 XR chest 1V portable [facility] [place] [address] [place] [address] XRay Report Signed Patient: Tejas Ray MR#: [id number] 0 : 1965 Acct:[id number] Age/Sex: 58 / M ADM Date: 05/28/23 Loc: ER Room: Type: [facility] ER Attending Dr: Copies to: Edwin Mckinney PA-C Ordering Provider: Edwin Mckinney PA-C Date of Service: 05/28/23 XR/XR chest 1V portable: Extremity Injury, Lower [place] film chest Single view HISTORY: Right lower extremity pain and swelling. Difficulty bearing weight. COMPARISON: 10/08/2019 FINDINGS: SUPPORT DEVICES: None POSTSURGICAL CHANGES: None HEART: Similar cardiomegaly PULMONARY PIPER: Within normal limits MEDIASTINUM: Unremarkable LUNGS AND PLEURA: No acute lung process, pleural effusion or pneumothorax identified. Similar mild interstitial changes. BONY STRUCTURES: Intact ADDITIONAL FINDINGS None XR/XR chest 1V portable IMPRESSION: No acute process. Similar cardiomegaly and mild interstitial changes. Impression dictated by: Kulwinder Miller M.D.05/28/2023 2:32 PM Dictation Location: RADIO-PC-05 Transcribed By: DARLING 05/28/231431 Dictated By: Kulwinder Miller DO 05/28/231431 Signed By: 05/28/23 143 [facility] XR foot RT min 3V*on 024 XR foot RT min 3V* [facility] [address] [place] [address] XRay Report Signed Patient: Tejas Ray MR#: [id number] 0 : 1965 Acct:[id number] Age/Sex: 58 / M ADM Date: 05/28/23 Loc: ER Room: Type: [facility] ER Attending Dr: Copies to: Edwin Mckinney PA-C Ordering Provider: Edwin Mckinney PA-C Date of Service: 05/28/23 XR/XR foot RT min 3V*: Extremity Injury, Lower 3 views right foot plain film COMPARISON:None HISTORY: Right lower extremity pain and swelling. ACUTE FINDINGS: None DEGENERATIVE CHANGE: Unremarkable SOFT TISSUE FINDINGS: Diffuse soft tissue prominence JOINT EFFUSION: None POSTOP CHANGES: Bony screw of the distal portion of the first metatarsal present. First of metatarsal phalangeal degeneration. No acute bony findings. Adequate bony alignment. BONE MINERALIZATION: Adequate XR/XR foot RT min 3V* IMPRESSION: Degenerative postsurgical changes. Few stable soft tissue prominence. No acute bony findings. Impression dictated by: Kulwinder Miller M.D.05/28/2023 2:56 PM Dictation Location: RADIO-PC-05 Transcribed By: DARLING 05/28/23 145 Dictated By: Kulwinder Miller DO 05/28/231452 Signed By: 05/28/23 145 [facility] Basic Metabolic Panelon 05-07 Anion gap [Moles/Vol] 10.9 mmol/L Normal 6.0-15.0 [facility] Comment on above: Performed By: #### B MP, CBC #### [place] [address] [place] Calcium [Mass/Vol] 8.7 mg/dL Normal 8.6-10.3 [facility] Comment on above: Performed By: #### B MP, CBC #### [facility] [address] Chloride [Moles/Vol] 106 mmol/L Normal 98-107 [facility] Comment on above: Performed By: #### B MP, CBC #### [facility] [address] CO2 [Moles/Vol] 25.9 mmol/L Normal 21.0-31.0 [facility] Comment on above: Performed By: #### B MP, CBC #### [facility] [address] Creatinine [Mass/Vol] 1.40 mg/dL High 0.70-1.30 [facility] Comment on above: Performed By: #### B MP, CBC #### [facility] [address] [place] [address] [place] Creatinine Clr Calc Pharmacy 76.19 Normal [facility] Comment on above: Result Comment: PERF ORMED BY: [place] [address] PATHOLOGIST SANDSTONE INSPECTOR REPAIRER ROBERTO OCAMPO M.D. Performed By: #### B MP, CBC #### [address] GFR/1.73 sq M.predicted MDRD (S/P/Bld) [Vol rate/Area] 57.540 mL/min/{1.73_m2} Normal [facility] Comment on above: Performed By: #### B MP, CBC #### [facility] [address] [place] [address] [place] Glucose [Mass/Vol] 95 mg/dL Normal 70-100 [facility] Comment on above: Result Comment: [place] Glucose Reference Range is dependent on time and content of last meal. Glucose of more than 200 mg/dL in a nonstressed, ambulatory subject supports the diagnosis of Diabetes Mellitus. ADA recommended reference range Performed By: #### B MP, CBC #### [address] Potassium [Moles/Vol] 3.8 mmol/L Normal 3.5-5.1 [facility] Comment on above: Performed By: #### B MP, CBC #### [address] Sodium [Moles/Vol] 139 mmol/L Normal 136-145 [facility] Comment on above: Performed By: #### B MP, CBC #### [address] Urea nitrogen [Mass/Vol] 32 mg/dL High 7-25 [facility] Comment on above: Performed By: #### B MP, CBC #### [address] Complete Blood Count Auto Di ffon 05-27-2023 Basophils (Bld) [#/Vol] 0.1 10*3/uL Normal 0.0-0.2 [facility] Comment on above: Result Comment: PERF ORMED BY: [place] [address] PATHOLOGIST SANDSTONE INSPECTOR REPAIRER ROBERTO OCAMPO M.D. Performed By: #### B MP, CBC #### [address] Basophils/100 WBC (Bld) 0.8 % Normal . [facility] Comment on above: Performed By: #### B MP, CBC #### [place] [address] [place] Eosinophils (Bld) [#/Vol] 0.1 10*3/uL Normal 0.0-0.45 [facility] Comment on above: Performed By: #### B MP, CBC #### [address] Eosinophils/100 WBC (Bld) 0.8 % Normal . [facility] Comment on above: Performed By: #### B MP, CBC #### [address] Erythrocyte distribution width (RBC) [Ratio] 14.3 % Normal 12.0-14.8 [facility] Comment on above: Performed By: #### B MP, CBC #### [address] Hematocrit (Bld) [Volume fraction] 39.1 % Normal 38.8-50.0 [facility] Comment on above: Performed By: #### B MP, CBC #### [address] Hemoglobin (Bld) [Mass/Vol] 13.1 g/dL Normal 13.0-17.0 [facility] Comment on above: Performed By: #### B MP, CBC #### [address] Lymphocytes (Bld) [#/Vol] 3.2 10*3/uL Normal 1.00-4.8 [facility] Comment on above: Performed By: #### B MP, CBC #### [address] Lymphocytes/100 WBC (Bld) 27.1 % Normal . [facility] Comment on above: Performed By: #### B MP, CBC #### [address] MCH (RBC) [Entitic mass] 32.8 pg Normal 27.5-35.2 [facility] Comment on above: Performed By: #### B MP, CBC #### [address] MCV (RBC) [Entitic vol] 97.9 fL Normal 83.5-101 [facility] Comment on above: Performed By: #### B MP, CBC #### [address] Mean Corpuscular HGB Conc 33.5 g/dL Normal 32.5-35.6 [facility] Comment on above: Performed By: #### B MP, CBC #### [address] Monocytes (Bld) [#/Vol] 1.0 10*3/uL High 0.0-0.8 [facility] Comment on above: Performed By: #### B MP, CBC #### [place] [address] [place] Monocytes/100 WBC (Bld) 8.8 % Normal . [facility] Comment on above: Performed By: #### B MP, CBC #### [address] Neutrophils (Bld) [#/Vol] 7.3 10*3/uL Normal 1.8-7.7 [facility] Comment on above: Performed By: #### B MP, CBC #### [address] Neutrophils/100 WBC (Bld) 62.5 % Normal . [facility] Comment on above: Performed By: #### B MP, CBC #### [address] NRBC% 0.1 /100{WBC} Normal 0-0.5 [facility] Comment on above: Performed By: #### B MP, CBC #### [address] Platelet mean volume (Bld) [Entitic vol] 9.2 fL Normal 6.6-10.1 [facility] Comment on above: Performed By: #### B MP, CBC #### [place] [address] [place] Platelets (Bld) [#/Vol] 235 10*3/uL Normal 150-450 [facility] Comment on above: Performed By: #### B MP, CBC #### [place] [address] [place] RBC (Bld) [#/Vol] 4.00 10*6/uL Normal 3.90-5.[address] [facility] Comment on above: Performed By: #### B MP, CBC #### [place] [address] [place] WBC (Bld) [#/Vol] 11.7 10*3/uL High 4.1-10.[address] [facility] Comment on above: Performed By: #### B MP, CBC #### [facility] [address] Basic Metabolic Panelon - Anion gap [Moles/Vol] 11.7 mmol/L Normal 6.0-15.0 [facility] Comment on above: Performed By: #### P TT, HEPATIC, BMP, PT #### [facility] [address] Calcium [Mass/Vol] 8.8 mg/dL Normal 8.6-10.3 [facility] Comment on above: Performed By: #### P TT, HEPATIC, BMP, PT #### [facility] [address] Chloride [Moles/Vol] 108 mmol/L High 98-107 [facility] Comment on above: Performed By: #### P TT, HEPATIC, BMP, PT #### [facility] [address] CO2 [Moles/Vol] 24.4 mmol/L Normal 21.0-31.0 [facility] Comment on above: Performed By: #### P TT, HEPATIC, BMP, PT #### [facility] [address] Creatinine [Mass/Vol] 1.34 mg/dL High 0.70-1.30 [facility] Comment on above: Performed By: #### P TT, HEPATIC, BMP, PT #### [facility] [address] Creatinine Clr Calc Pharmacy 81.59 Normal [facility] Comment on above: Result Comment: PERF ORMED BY: [place] [address] PATHOLOGIST SANDSTONE INSPECTOR REPAIRER ROBERTO OCAMPO M.D. Performed By: #### P TT, HEPATIC, BMP, PT #### [address] GFR/1.73 sq M.predicted MDRD (S/P/Bld) [Vol rate/Area] mL/min/{1.73_m2} [facility] Comment on above: Performed By: #### P TT, HEPATIC, BMP, PT #### [address] Glucose [Mass/Vol] 115 mg/dL High 70-100 [facility] Comment on above: Result Comment: [place] Glucose Reference Range is dependent on time and content of last meal. Glucose of more than 200 mg/dL in a nonstressed, ambulatory subject supports the diagnosis of Diabetes Mellitus. ADA recommended reference range Performed By: #### P TT, HEPATIC, BMP, PT #### [address] Potassium [Moles/Vol] 4.1 mmol/L Normal 3.5-5.1 [facility] Comment on above: Performed By: #### P TT, HEPATIC, BMP, PT #### [address] Sodium [Moles/Vol] 140 mmol/L Normal 136-145 [facility] Comment on above: Performed By: #### P TT, HEPATIC, BMP, PT #### [address] Urea nitrogen [Mass/Vol] 33 mg/dL High 7-25 [facility] Comment on above: Performed By: #### P TT, HEPATIC, BMP, PT #### [address] Blood Cultureon 05-26-2023 Bacteria identified Cx Nom (Bld) NO GROWTH 5 DAYS PERFORMED BY: [place] [address] PATHOLOGIST SANDSTONE INSPECTOR REPAIRER ROBERTO OCAMPO M.D. [facility] Comment on above: Performed By: #### C UBLD #### [address] Complete Blood Count Auto Di ffon 05-26-2023 Basophils (Bld) [#/Vol] 0.0 10*3/uL Normal 0.0-0.2 [facility] Comment on above: Result Comment: PERF ORMED BY: [place] [address] PATHOLOGIST SANDSTONE INSPECTOR REPAIRER ROBERTO OCAMPO M.D. Performed By: #### P TT, HEPATIC, BMP, PT #### [address] Basophils/100 WBC (Bld) 0.1 % Normal . [facility] Comment on above: Performed By: #### P TT, HEPATIC, BMP, PT #### [address] Eosinophils (Bld) [#/Vol] 0.0 10*3/uL Normal 0.0-0.45 [facility] Comment on above: Performed By: #### P TT, HEPATIC, BMP, PT #### [address] Eosinophils/100 WBC (Bld) 0.0 % Normal . [facility] Comment on above: Performed By: #### P TT, HEPATIC, BMP, PT #### [facility] [address] [place] [address] Erythrocyte distribution width (RBC) [Ratio] 14.3 % Normal 12.0-14.8 [facility] Comment on above: Performed By: #### P TT, HEPATIC, BMP, PT #### [facility] [address] [place] [address] Hematocrit (Bld) [Volume fraction] 36.9 % Low 38.8-50.0 [facility] Comment on above: Performed By: #### P TT, HEPATIC, BMP, PT #### [facility] [address] [place] [address] Hemoglobin (Bld) [Mass/Vol] 12.1 g/dL Low 13.0-17.0 [facility] Comment on above: Performed By: #### P TT, HEPATIC, BMP, PT #### [facility] [address] [place] [address] [place] Lymphocytes (Bld) [#/Vol] 2.0 10*3/uL Normal 1.00-4.8 [facility] Comment on above: Performed By: #### P TT, HEPATIC, BMP, PT #### [address] Lymphocytes/100 WBC (Bld) 11.4 % Normal . [facility] Comment on above: Performed By: #### P TT, HEPATIC, BMP, PT #### [address] MCH (RBC) [Entitic mass] 32.2 pg Normal 27.5-35.2 [facility] Comment on above: Performed By: #### P TT, HEPATIC, BMP, PT #### [address] MCV (RBC) [Entitic vol] 98.1 fL Normal 83.5-101 [facility] Comment on above: Performed By: #### P TT, HEPATIC, BMP, PT #### [address] Mean Corpuscular HGB Conc 32.9 g/dL Normal 32.5-35.6 [facility] Comment on above: Performed By: #### P TT, HEPATIC, BMP, PT #### [address] Monocytes (Bld) [#/Vol] 1.4 10*3/uL High 0.0-0.8 [facility] Comment on above: Performed By: #### P TT, HEPATIC, BMP, PT #### [place] [address] [place] Monocytes/100 WBC (Bld) 7.9 % Normal . [facility] Comment on above: Performed By: #### P TT, HEPATIC, BMP, PT #### [address] Neutrophils (Bld) [#/Vol] 14.0 10*3/uL High 1.8-7.7 [facility] Comment on above: Performed By: #### P TT, HEPATIC, BMP, PT #### [address] Neutrophils/100 WBC (Bld) 80.6 % Normal . [facility] Comment on above: Performed By: #### P TT, HEPATIC, BMP, PT #### [address] NRBC% 0.1 /100{WBC} Normal 0-0.5 [facility] Comment on above: Performed By: #### P TT, HEPATIC, BMP, PT #### [address] Platelet mean volume (Bld) [Entitic vol] 9.4 fL Normal 6.6-10.1 [facility] Comment on above: Performed By: #### P TT, HEPATIC, BMP, PT #### [address] Platelets (Bld) [#/Vol] 233 10*3/uL Normal 150-450 [facility] Comment on above: Performed By: #### P TT, HEPATIC, BMP, PT #### [address] RBC (Bld) [#/Vol] 3.77 10*6/uL Low 3.90-5.[address] [facility] Comment on above: Performed By: #### P TT, HEPATIC, BMP, PT #### [address] WBC (Bld) [#/Vol] 17.3 10*3/uL High 4.1-10.[address] [facility] Comment on above: Performed By: #### P TT, HEPATIC, BMP, PT #### [address] Basic Metabolic Panelon 05-07 0 Anion gap [Moles/Vol] 12.1 mmol/L Normal 6.0-15.0 [facility] Comment on above: Performed By: #### B MP, CBC #### [address] Calcium [Mass/Vol] 8.6 mg/dL Normal 8.6-10.3 [facility] Comment on above: Performed By: #### B MP, CBC #### [facility] [address] Chloride [Moles/Vol] 107 mmol/L Normal 98-107 [facility] Comment on above: Performed By: #### B MP, CBC #### [facility] [address] [place] [address] CO2 [Moles/Vol] 21.6 mmol/L Normal 21.0-31.0 [facility] Comment on above: Performed By: #### B MP, CBC #### [address] Creatinine [Mass/Vol] 1.29 mg/dL Normal 0.70-1.30 [facility] Comment on above: Performed By: #### B MP, CBC #### [address] Creatinine Clr Calc Pharmacy 84.75 [facility] Comment on above: Performed By: #### B MP, CBC #### [place] [address] [place] GFR/1.73 sq M.predicted MDRD (S/P/Bld) [Vol rate/Area] mL/min/{1.73_m2} [facility] Comment on above: Performed By: #### B MP, CBC #### [address] Glucose [Mass/Vol] 194 mg/dL High 70-100 [facility] Comment on above: Result Comment: [place] Glucose Reference Range is dependent on time and content of last meal. Glucose of more than 200 mg/dL in a nonstressed, ambulatory subject supports the diagnosis of Diabetes Mellitus. ADA recommended reference range Performed By: #### B MP, CBC #### [address] Potassium [Moles/Vol] 3.7 mmol/L Normal 3.5-5.1 [facility] Comment on above: Performed By: #### B MP, CBC #### [facility] [address] Sodium [Moles/Vol] 137 mmol/L Normal 136-145 [facility] Comment on above: Performed By: #### B MP, CBC #### [facility] [address] Urea nitrogen [Mass/Vol] 27 mg/dL High 7- [facility] Comment on above: Performed By: #### B MP, CBC #### [address] Complete Blood Count Auto Di ffon 05-25-2023 Basophils (Bld) [#/Vol] 0.0 10*3/uL Normal 0.0-0.2 [facility] Comment on above: Result Comment: PERF ORMED BY: [place] [address] PATHOLOGIST SANDSTONE INSPECTOR REPAIRER ROBERTO OCAMPO M.D. Performed By: #### B MP, CBC #### [address] Basophils/100 WBC (Bld) 0.2 % Normal . [facility] Comment on above: Performed By: #### B MP, CBC #### [address] Eosinophils (Bld) [#/Vol] 0.0 10*3/uL Normal 0.0-0.45 [facility] Comment on above: Performed By: #### B MP, CBC #### [address] Eosinophils/100 WBC (Bld) 0.0 % Normal . [facility] Comment on above: Performed By: #### B MP, CBC #### [address] Erythrocyte distribution width (RBC) [Ratio] 14.3 % Normal 12.0-14.8 [facility] Comment on above: Performed By: #### B MP, CBC #### [address] [place] [place] [address] [place] Hematocrit (Bld) [Volume fraction] 37.6 % Low 38.8-50.0 [facility] Comment on above: Performed By: #### B MP, CBC #### [facility] [address] Hemoglobin (Bld) [Mass/Vol] 12.7 g/dL Low 13.0-17.0 [facility] Comment on above: Performed By: #### B MP, CBC #### [facility] [address] Lymphocytes (Bld) [#/Vol] 0.9 10*3/uL Low 1.00-4.8 [facility] Comment on above: Performed By: #### B MP, CBC #### [address] Lymphocytes/100 WBC (Bld) 5.4 % Normal . [facility] Comment on above: Performed By: #### B MP, CBC #### [address] MCH (RBC) [Entitic mass] 33.1 pg Normal 27.5-35.2 [facility] Comment on above: Performed By: #### B MP, CBC #### [address] MCV (RBC) [Entitic vol] 97.6 fL Normal 83.5-101 [facility] Comment on above: Performed By: #### B MP, CBC #### [address] Mean Corpuscular HGB Conc 33.9 g/dL Normal 32.5-35.6 [facility] Comment on above: Performed By: #### B MP, CBC #### [address] Monocytes (Bld) [#/Vol] 0.6 10*3/uL Normal 0.0-0.8 [facility] Comment on above: Performed By: #### B MP, CBC #### [facility] [address] Monocytes/100 WBC (Bld) 3.6 % Normal . [facility] Comment on above: Performed By: #### B MP, CBC #### [facility] [address] Neutrophils (Bld) [#/Vol] 15.9 10*3/uL High 1.8-7.7 [facility] Comment on above: Performed By: #### B MP, CBC #### [facility] [address] Neutrophils/100 WBC (Bld) 90.8 % Normal . [facility] Comment on above: Performed By: #### B MP, CBC #### [address] NRBC% 0.0 /100{WBC} Normal 0-0.5 [facility] Comment on above: Performed By: #### B MP, CBC #### [address] Platelet mean volume (Bld) [Entitic vol] 9.3 fL Normal 6.6-10.1 [facility] Comment on above: Performed By: #### B MP, CBC #### [address] Platelets (Bld) [#/Vol] 207 10*3/uL Normal 150-450 [facility] Comment on above: Performed By: #### B MP, CBC #### [address] RBC (Bld) [#/Vol] 3.85 10*6/uL Low 3.90-5.[address] [facility] Comment on above: Performed By: #### B MP, CBC #### [address] WBC (Bld) [#/Vol] 17.5 10*3/uL High 4.1-10.[address] [facility] Comment on above: Performed By: #### B MP, CBC #### [address] [place] [address] [place] Creatine Kinaseon 05-25-2023 CK [Catalytic activity/Vol] 198 U/L Normal 30-223 [facility] Comment on above: Performed By: #### B MP, CBC #### [facility] [address] [place], [place] [id number] [place] ECG 12 lead ECGon 05-25-2023 ECG 12 lead ECG [facility] [place] [address] Electrocardiograph Report Signed Patient: Tejas Ray MR#: [id number] 0 : 1965 Acct:[id number] Age/Sex: 58 / M ADM Date: 05/24/23 Loc: Room: [address] [place] [address] Type: ADM IN Attending Dr: Arturo Dolan DO Ordering Provider: Arturo Dolan DO Date of Service: 05/25/23 ECG/ECG 12 lead ECG: Follow up A-Fib with RVR Copies to: Test Reason : Blood Pressure : / mmHG Vent. Rate : 095 BPM Atrial Rate : 535 BPM P-R Int : 000 ms QRS Dur : 082 ms QT Int : 338 ms P-R-T Axes : 000 -30 070 degrees QTc Int : 424 ms Atrial fibrillation Left axis deviation Nonspecific ST and T wave abnormality , probably digitalis effect Abnormal ECG When compared with ECG of 25-MAY-2023 07:50, (Unconfirmed) Significant changes have occurred Confirmed by LINH PAZ MD ([id number]) on 05/25/2023 2:40:25 PM Referred By: Electronically Signed By:LINH PAZ MD Transcribed By: MUS Signed By Linh Paz MD 0 05/25/23 1440 Normal [facility] ECH echo transthoracicon ECH echo transthoracic [facility] Main [place] [id number] Echocardiogram Signed Patient: Tejas Ray MR#: [id number] 0 : 1965 Acct:[id number] Age/Sex: 58 / M ADM Date: 05/24/23 Loc: Room: [address] [place] [address] Type: ADM IN Attending Dr: Arturo Dolan DO Ordering Provider: Arturo Dolan DO Date of Service: 05/24/23 ECH/ECH echo transthoracic: new A-Fib with RVR Copies to: DO Linh Conti MD Weight: 331 lb Performed By: BENJAMIN Valente BSA: 2.5 m2 BP: 162/90 mmHg HR: 90 Reason For Study: new A-Fib with RVR History: SVT, Ablation, HTN, Obesity Interpretation Summary Ejection Fraction = 55-60%. The left ventricular size, thickness and function are normal The left ventricular wall motion is normal. The left atrium appears mildly dilated. There is trace mitral regurgitation. There is trace tricuspid regurgitation. The patient was in atrial fibrillation through out the study. The left atrium is now mildly dilated and the patient now in atrial fibrillation Compared to prior study, changes are noted. The left atrium is now mildly dilated and the patient now in atrial fibrillation. Procedure/Quality: A two-dimensional transthoracic echocardiogram with color flow and Doppler was performed. The study was technically good in quality. Left Ventricle: The left ventricular size, thickness and function are normal. Ejection Fraction = 55-60%. The left ventricular wall motion is normal. Left Atrium: The left atrium appears mildly dilated. Right Atrium: The right atrium appears normal in size. Right Ventricle: The right ventricular size, thickness and function are normal. Aortic Valve: The aortic valve is normal in structure and function. No aortic regurgitation is present. Mitral Valve: The mitral valve is normal in structure and function. There is trace mitral regurgitation. Tricuspid Valve: The tricuspid valve is normal in structure and function. There is trace tricuspid regurgitation. Pulmonic Valve: The pulmonic valve is normal in structure and function. Arteries: The aortic root is normal size. Pericardium/Pleura: No pericardial effusion seen. There is no pleural effusion. IVC/Hepatic Veins: The inferior vena cava is normal in size, with a normal collapsibility index. Miscellaneous: The patient was in atrial fibrillation through out the study. Measurements with Normals IVSd: 1.1 cm (0.7-1.1 cm)LVIDd: 5.6 cm (3.7-5.4 cm) LVPWd: 1.3 cm (0.7-1.1 cm)LVIDs: 4.0 cm (2.3-3.6 cm) LA dimension: 4.3 cm (2.3-4.0 cm)Ao root diam: 3.4 cm(2.0-3.6 cm) asc Aorta Diam: 3.8 cm(2.1-3.4cm) Doppler with Normals LV V1 max: 115.1 cm/sec (0.7-1.7m/s)MV E max mayela: 127.0 cm/sec(0.8-1.3m/s) MV A max mayela: 46.4 cm/sec(0.0-0.0m/s) MV E/A: 2.7 (<1.5) MMode/2D Measurements Calculations RVDd: 3.0 cm FS: 28.9 % Ao root area: LVOT diam: 2.2 cm EDV(Teich): 9.0 cm2 LVOT area: 3.7 cm2 156.7 ml ESV(Teich): 70.7 ml EF(Teich): 54.9 % __ LVLd ap4: 7.0 cm SV(MOD-sp4): LAV(MOD-sp4): LA A2 area: 24.9 cm2 EDV(MOD-sp4): 51.1 ml 82.7 ml 70.8 ml LAV(MOD-sp2): LA A4 area: 24.8 cm2 LVLs ap4: 5.7 cm 83.8 ml LA length (vol): ESV(MOD-sp4): 5.8 cm 19.7 ml LA vol: 90.4 ml EF(MOD-sp4): LA vol index: 72.2 % 36.5 ml/m2 Doppler Measurements Calculations MV dec time: E/E' lat: 12.4 MV dec slope: Ao V2 max: 0.20 sec E/E' med: 10.0 160.5 cm/sec 642.7 cm/sec2 Ao max P.3 mmHg Ao mean P.9 mmHg Ao V2 mean: 128.5 cm/sec Ao V2 VTI: 30.9 cm MONET(I,D): 2.9 cm2 MONET(V,D): 2.7 cm2 __ LV V1 max PG: RAP systole: 5.3 mmHg 15.0 mmHg LV V1 mean P.9 mmHg LV V1 mean: 81.1 cm/sec LV V1 VTI: 24.2 cm Transcribed By: MIHIR Performed At: 05/25/23 1033 Signed By: Linh Paz MD 05/25/23 1150 Normal [facility] Magnesiumon 05-25-2023 Magnesium [Mass/Vol] 1.9 mg/dL Normal 1.9-2.7 [facility] Comment on above: Result Comment: PERF ORMED BY: [place] [address] PATHOLOGIST SANDSTONE INSPECTOR REPAIRER ROBERTO OCAMPO M.D. Performed By: #### B PATRICIA, CBC #### [facility] [address] [place], [place] [id number] [place] Troponin I High Sensitivityo n 05-25-2023 Troponin I High Sensitivity 7.0 pg/mL Normal 0.0-20.0 [facility] Comment on above: Result Comment: PERF ORMED BY: [facility] [address] [place] [address] PATHOLOGIST SANDSTONE INSPECTOR REPAIRER ROBERTO OCAMPO M.D. Performed By: #### B MP, CBC #### [facility] [address] [place], [place] [id number] [place] A1C with Estimated Average G luon 05-24-2023 Glucose [Mass/Vol] 131 mg/dL Normal [facility] Comment on above: Result Comment: PERF ORMED BY: [place] [address] PATHOLOGIST SANDSTONE INSPECTOR REPAIRER ROBERTO OCAMPO M.D. Performed By: #### P TT, HEPATIC, BMP, PT #### [facility] [address] [place] [address] HbA1c (Bld) [Mass fraction] 6.2 % High 4.3-5.6 [facility] Comment on above: Result Comment: Incr eased risk for diabetes: 5.7 - 6.4 diabetes: >6.4 glycemic control for adults with diabetes: <7.0 Performed By: #### P TT, HEPATIC, BMP, PT #### [facility] [address] [place] [address] Activated partial thrombopla stin time (aPTT) in platelet poor plasma by coagulation aOrdered By: Ria Talamantes on 05-24-2023 aPTT Coag (PPP) [Time] 27.5 s 25.1-36.5 [facility] Comment on above: A hematocrit value g reater than 55% may lead to inaccurate results in coagulation testing. Patients having hematocrit values >55% require a special collection tube for coagulation studies. Please contact the laboratory at [phone] for redraw instructions. Aerobic Cultureon 05-24-2023 Aerobic Culture Result Tab Codes Moderate Normal Respiratory [place] 2 Days Gram Stain Result 1+ Gram Positive Cocci in Clusters 1+ Gram Negative Bacilli 1+ White Blood Cells 1+ Epithelial Cells * This is a corrected result. * A prior result that was reported as final has been changed. PERFORMED BY: [address] [address] PATHOLOGIST SANDSTONE INSPECTOR REPAIRER ROBERTO OCAMPO M.D. [facility] Comment on above: Performed By: #### P TT, HEPATIC, BMP, PT #### [place] [id number] [facility] Automated erythrocytes count in urine sediment (number/area)Ordered By: Ria Talamantes on 05-24-2023 RBC Auto (Urine sed) [#/Area] None seen [HPF] 0-4 [facility] Automated leukocytes count i n urine sediment (number/area)Ordered By: Ria [place] on 05-24-2023 WBC Auto (Urine sed) [#/Area] None seen [HPF] 0-4 [facility] B-Type Natriuretic Peptideon 05-24-2023 Natriuretic peptide B (Bld) [Mass/Vol] 221.0 pg/mL High 5-100 [facility] Comment on above: Result Comment: PERF ORMED BY: [place] [address] PATHOLOGIST SANDSTONE INSPECTOR REPAIRER ROBERTO OCAMPO M.D. Performed By: #### B MP, CBC #### [facility] [address] Basic Metabolic Panelon 05-06 Anion gap [Moles/Vol] 13.0 mmol/L Normal 6.0-15.0 [facility] Comment on above: Performed By: #### B MP, CBC #### [facility] [address] [place] [address] [place] Calcium [Mass/Vol] 9.2 mg/dL Normal 8.6-10.3 [facility] Comment on above: Performed By: #### B MP, CBC #### [facility] [address] [place] [address] [place] Chloride [Moles/Vol] 105 mmol/L Normal 98-107 [facility] Comment on above: Performed By: #### B MP, CBC #### [facility] [address] [place] [address] [place] CO2 [Moles/Vol] 22.1 mmol/L Normal 21.0-31.0 [facility] Comment on above: Performed By: #### B MP, CBC #### [facility] [address] [place] [address] [place] Creatinine [Mass/Vol] 1.38 mg/dL High 0.70-1.30 [facility] Comment on above: Performed By: #### B MP, CBC #### [facility] [address] [place] [address] [place] Creatinine Clr Calc Pharmacy 79.52 Normal [facility] Comment on above: Result Comment: PERF ORMED BY: [place] [address] PATHOLOGIST SANDSTONE INSPECTOR REPAIRER ROBERTO OCAMPO M.D. Performed By: #### B MP, CBC #### [facility] [address] [place] [address] [place] GFR/1.73 sq M.predicted MDRD (S/P/Bld) [Vol rate/Area] 58.542 mL/min/{1.73_m2} Normal [facility] Comment on above: Performed By: #### B MP, CBC #### [address] Glucose [Mass/Vol] 110 mg/dL High 70-100 [facility] Comment on above: Result Comment: [place] Glucose Reference Range is dependent on time and content of last meal. Glucose of more than 200 mg/dL in a nonstressed, ambulatory subject supports the diagnosis of Diabetes Mellitus. ADA recommended reference range Performed By: #### B MP, CBC #### [place] [address] [place] Potassium [Moles/Vol] 4.1 mmol/L Normal 3.5-5.1 [facility] Comment on above: Performed By: #### B MP, CBC #### [place] [address] [place] Sodium [Moles/Vol] 136 mmol/L Normal 136-145 [facility] Comment on above: Performed By: #### B MP, CBC #### [facility] [address] [place] [address] [place] Urea nitrogen [Mass/Vol] 23 mg/dL Normal 7-25 [facility] Comment on above: Performed By: #### B MP, CBC #### [facility] [address] [place] [address] [place] Basophils Auto (Bld) [#/Vol] Ordered By: Ria Talamantes on 05-24-2023 Basophils (Bld) [#/Vol] 0.1 10*3/uL 0.0-0.2 [facility] Basophils/100 WBC Auto (Bld) Ordered By: Ria Sotorosemarie on 05-24-2023 Basophils/100 WBC (Bld) 0.5 % . [facility] Bilirubin Test strip Ql (U)O rdered By: Ria Sotorosemarie on 05-24-2023 Bilirubin Ql (U) Negative Negative [facility] Blood Cultureon 05-24-2023 Bacteria identified Cx Nom (Bld) NO GROWTH 5 DAYS PERFORMED BY: [place] [address] PATHOLOGIST SANDSTONE INSPECTOR REPAIRER ROBERTO OCAMPO M.D. Normal [facility] Comment on above: Performed By: #### P TT, HEPATIC, BMP, PT #### [address] Bacteria identified Cx Nom (Bld) Gram Stain Gram Positive Cocci in Chains ORGANISM: Streptococcus pneumoniae (O:STRPNE) Aerobic Robles Charge (Strep) SUSCEPTIBILITY ORGANISM: O:STRPNE ANTIBIOTIC INTERPRETATION ROBLES Amoxacillin/K Clavulanate S <0.5 Cefepime S <0.25 Ceftriaxone S <0.25 Cefuroxime S <0.25 Erythromycin R >0.5 Levofloxacin S 1 Meropenem S <0.06 Penicillin S <0.03 Tetracycline S <0.5 Trimethoprim/Sulfamethoxaz ole S <0.25 Vancomycin S 0.5 Staphylococcus aureus DNA [Presence] by PRITESH with non-probe detection in Positive blood culture Not detected Bacteroides fragilis DNA [Presence] by PRITESH with non-probe detection in Positive blood culture Not detected Anabelle auris DNA [Presence] by PRITESH with non-probe detection in Positive blood culture Not detected Anabelle albicans DNA [Presence] by PRITESH with non-probe detection in Positive blood culture Not detected Acinetobacter calcoaceticus-baumannii complex DNA [Presence] by PRITESH with non-probe detection in Positive blood culture Not detected Cryptococcus neoformans or gattii 9002 Not detected Cephalosporin resistance blaCTX-M gene [Presence] by Molecular method Not Applicable Escherichia coli Not detected Enterobacterales DNA [Presence] by PRITESH with non-probe detection in Positive blood culture Not detected Enterobacter cloacae complex DNA [Presence] by PRITESH with non-probe detection in Positive blood culture Not detected Staphylococcus epidermidis DNA [Presence] by PRITESH with non-probe detection in Positive blood culture Not detected Enterococcus faecalis DNA [Presence] by PRITESH with non-probe detection in Positive blood culture Not detected Enterococcus faecium DNA [Presence] by PRITESH with non-probe detection in Positive blood culture Not detected Anabelle glabrata DNA [Presence] by PRITESH with non-probe detection in Positive blood culture Not detected Haemophilus influenzae (reported as H flu) Not detected Carbapenem resistance blaIMP gene [Presence] by Molecular method Not Applicable Klebsiella aerogenes DNA [Presence] by PRITESH with non-probe detection in Positive blood culture Not detected Klebsiella pneumoniae+Klebsiella variicola+Klebsiella quasipneumoniae DNA [Presence] by PRITESH with non-probe detection in Positive blood culture Not detected Klebsiella oxytoca DNA [Presence] by PRITESH with non-probe detection in Positive blood culture Not detected Carbapenem resistance blaKPC gene [Presence] by Molecular method Not Applicable Anabelle krusei DNA [Presence] by PRITESH with non-probe detection in Positive blood culture Not detected Listeria monocytogenes (reported as listeriosis) Not detected Staphylococcus lugdunensis DNA [Presence] by PRITESH with non-probe detection in Positive blood culture Not detected Methicillin resistance mecA+mecC genes+SCCmec+OrfX junction [Presence] by Molecular method Not Applicable Carbapenem resistance blaNDM gene [Presence] by Molecular method Not Applicable Neisseria meningitidis - reported as meningococcal disease Not detected Carbapenem resistance triston OXA-48-like gene [Presence] by Molecular method Not Applicable Anabelle parapsilosis DNA [Presence] by PRITESH with non-probe detection in Positive blood culture Not detected Streptococcus pneumoniae - reported at ISP Detected Proteus sp DNA [Presence] by PRITESH with non-probe detection in Positive blood culture Not detected Pseudomonas aeruginosa DNA [Presence] by PRITESH with non-probe detection in Positive blood culture Not detected Salmonella sp DNA [Presence] by PRITESH with non-probe detection in Positive blood culture Not detected Serratia marcescens DNA [Presence] by PRITESH with non-probe detection in Positive blood culture Not detected Staphylococcus sp DNA [Presence] by PRITESH with non-probe detection in Positive blood culture Not detected Stenotrophomonas maltophilia DNA [Presence] by PRITESH with non-probe detection in Positive blood culture Not detected Group A (Streptococcus pyogenes) [id number] Not detected Group B Strep (Streptococcus agalactiae) Not detected Streptococcus sp DNA [Presence] by PRTIESH with non-probe detection in Positive blood culture Detected Anabelle tropicalis DNA [Presence] by PRITESH with non-probe detection in Positive blood culture Not detected Vancomycin resistance David + vanB genes [Presence] by Molecular method Not Applicable Carbapenem resistance blaVIM gene [Presence] by Molecular method Not Applicable Colistin resistance mcr-1 gene [Presence] by Molecular method Not Applicable Methicillin resistance mecA+mecC genes [Presence] in Isolate or Specimen by Molecular genetics method Not Applicable RESIS. GENE COMMENT 1 Antimicrobial resistance can occur via multiple RESIS. GENE COMMENT 2 mechanisms. A Not Detected result for antimicrobial RESIS. GENE COMMENT 3 resistance gene(s) does not indicate antimicrobial RESIS. GENE COMMENT 4 susceptibility. Results called at (more content not included)... Normal [facility] Comment on above: Performed By: #### P TT, HEPATIC, BMP, PT #### [address] COVID CepheidOrdered By: Greg Talamantes on 05-24-2023 SARS-CoV-2 (COVID-19) Ab IA Ql Negative Negative [facility] Comment on above: This is a duplicate Cepheid Xpert Xpress CoV-2/Flu/RSV Plus RNA by RT-PCR result to be used for statistical tracking purpose only. SARS-CoV-2 (COVID-19) RNA PRITESH+probe Ql (Unsp spec) [facility] COVID-19 / Flu A/B / RSV PCR on 05-24-2023 SARS-CoV-2 (COVID-19) RNA PRITESH+probe Ql (Unsp spec) COVID-19 Cepheid Result Negative for SARS-CoV-2 RNA by RT-PCR Flu A Cepheid Result Negative for Flu A RNA by RT-PCR Flu B Cepheid Result Negative for Flu B RNA by RT-PCR RSV Cepheid Result Negative for RSV RNA by RT-PCR COVID19 Blank Space -- Reference: Negative COVID19 Blank Space -- Cepheid Disclaimer The Cepheid Xpert Xpress CoV-2/Flu/RSV Plus has Cepheid Disclaimer not been FDA cleared or approved; this test has Cepheid Disclaimer been authorized by FDA under an EUA for use by Cepheid Disclaimer authorized laboratories; this test has been Cepheid Disclaimer authorized only for the simultaneous qualitative Cepheid Disclaimer detection and differentiation of nucleic acids from Cepheid Disclaimer SARS-CoV-2, influenza A, influenza B, and Cepheid Disclaimer respiratory syncytial virus (RSV), and not for any Cepheid Disclaimer other viruses or pathogens; and this test is only Cepheid Disclaimer authorized for the duration of the declaration that Cepheid Disclaimer circumstances exist justifying the authorization of Cepheid Disclaimer emergency use of in vitro diagnostic tests for Cepheid Disclaimer detection and/or diagnosis of COVID-19 under Cepheid Disclaimer Section 564(b)(1) of the Act, 21 U.S.C. 360bbb- Cepheid Disclaimer 3(b)(1), unless the authorization is terminated or Cepheid Disclaimer revoked sooner. PERFORMED BY: [place] [address] PATHOLOGIST SANDSTONE INSPECTOR REPAIRER ROBERTO OCAMPO M.D. [facility] Comment on above: Performed By: #### P TT, HEPATIC, BMP, PT #### [address] angio chest PE protocolon 05-24-2023 CT angio chest PE protocol [facility] Main [place] [address] [place] [address] CT Scan Report Signed Patient: Tejas Ray MR#: [id number] 0 : 1965 Acct:[id number] Age/Sex: 58 / M ADM Date: 05/24/23 Loc: ER Room: Type: [facility] ER Attending Dr: Copies to: Ria Talamantes APRN Ordering Provider: Ria Talamantes APRN Date of Service: 05/24/23 CT/CT angio chest PE protocol: SOB CTA Chest with PE protocol TECHNIQUE: Axial imaging with 2-D and 3-D reconstruction. 78cc of Isovue-[address] exam was performed using one or more the following dose reduction techniques: Automated exposure control, adjustment of the MA and/or Kv according to patient size, or use of the iterative reconstruction technique. History: Shortness of breath. Cough. Leukocytosis. Elevated d-dimer. COMPARISON: None THYROID: Unremarkable TRACHEA AND BRONCHI: Patent ESOPHAGUS: Small hiatal hernia HEART: Cardiomegaly. PERICARDIAL EFFUSION: Trace pericardial effusion. CORONARY ARTERY CALCIFICATION: Mild MEDIASTINUM: Mildly prominent mediastinal adenopathy. PULMONARY PIPER: No hilar mass or adenopathy is seen. THORACIC AORTA Unremarkable PULMONARY EMBOLUS: None LUNG NODULE None LUNGS: Focal left lower lobe consolidation. A minute right lower lobe consolidation. Basilar groundglass parenchymal density. PLEURAL EFFUSION: None PNEUMOTHORAX: No pneumothorax seen. CHEST WALL: No abnormality AXILLA: Unremarkable BONY STRUCTURES Intact UPPER ABDOMEN: Hepatic steatosis. CT/CT angio chest PE protocol IMPRESSION: No acute pulmonary embolus. Basilar consolidation greater on the left. The basilar groundglass parenchymal density. Consider infiltrate/pneumonitis. Cardiomegaly. Trace pericardial effusion. Impression dictated by: Kulwinder Miller M.D.05/24/2023 5:17 PM Dictation Location: [place] [address] Transcribed By: [facility] 05/24/231716 Dictated By: Kulwinder Miller DO 05/24/231711 Signed By: 05/24/231716 [facility] Calcium [Mass/volume] in Ser um or PlasmaOrdered By: Ria Talamantes on 05-24-2023 Calcium [Mass/Vol] 9.2 mg/dL 8.6-10.3 [facility] Carbon dioxide, total [Moles /volume] in Serum or PlasmaOrdered By: Ria Talamantes on 05-24-2023 CO2 [Moles/Vol] 22.1 mmol/L 21.0-31.0 [facility] Cepheid COVID PCR Negativeon 05-24-2023 SARS-CoV-2 (COVID-19) RNA PRITESH+probe Ql (Unsp spec) Negative Normal Negative [facility] Comment on above: Result Comment: This is a duplicate Cepheid Xpert Xpress CoV-2/Flu/RSV Plus RNA by RT-PCR result to be used for statistical tracking purpose only. PERFORMED BY: [place] [address] PATHOLOGIST SANDSTONE INSPECTOR REPAIRER ROBERTO OCAMPO M.D. Performed By: #### P TT, HEPATIC, BMP, PT #### [place] [address] [place] Chloride [Moles/volume] in S rafy or PlasmaOrdered By: Ria Talamantes on 05-24-2023 Chloride [Moles/Vol] 105 mmol/L 98-107 [facility] Color Auto (U)Ordered By: Jimenez Talamantes on 05-24-2023 Color (U) Yellow Yellow [facility] Complete Blood Count Auto Di ffon 05-24-2023 Basophils (Bld) [#/Vol] 0.1 10*3/uL Normal 0.0-0.2 [facility] Comment on above: Result Comment: PERF ORMED BY: [place] [address] PATHOLOGIST SANDSTONE INSPECTOR REPAIRER ROBERTO OACMPO M.D. Performed By: #### B MP, CBC #### [place] [address] [place] Basophils/100 WBC (Bld) 0.5 % Normal . [facility] Comment on above: Performed By: #### B MP, CBC #### [place] [address] [place] Eosinophils (Bld) [#/Vol] 0.1 10*3/uL Normal 0.0-0.45 [facility] Comment on above: Performed By: #### B MP, CBC #### [place] [address] [place] Eosinophils/100 WBC (Bld) 0.9 % Normal . [facility] Comment on above: Performed By: #### B MP, CBC #### [address] Erythrocyte distribution width (RBC) [Ratio] 13.9 % Normal 12.0-14.8 [facility] Comment on above: Performed By: #### B MP, CBC #### [address] Hematocrit (Bld) [Volume fraction] 43.2 % Normal 38.8-50.0 [facility] Comment on above: Performed By: #### B MP, CBC #### [address] Hemoglobin (Bld) [Mass/Vol] 14.6 g/dL Normal 13.0-17.0 [facility] Comment on above: Performed By: #### B MP, CBC #### [address] Lymphocytes (Bld) [#/Vol] 1.0 10*3/uL Normal 1.00-4.8 [facility] Comment on above: Performed By: #### B MP, CBC #### [address] Lymphocytes/100 WBC (Bld) 6.3 % Normal . [facility] Comment on above: Performed By: #### B MP, CBC #### [address] MCH (RBC) [Entitic mass] 32.7 pg Normal 27.5-35.2 [facility] Comment on above: Performed By: #### B MP, CBC #### [address] MCV (RBC) [Entitic vol] 96.7 fL Normal 83.5-101 [facility] Comment on above: Performed By: #### B MP, CBC #### [address] Mean Corpuscular HGB Conc 33.8 g/dL Normal 32.5-35.6 [facility] Comment on above: Performed By: #### B MP, CBC #### [facility] [address] [place] [address] Monocytes (Bld) [#/Vol] 0.9 10*3/uL High 0.0-0.8 [facility] Comment on above: Performed By: #### B MP, CBC #### [address] Monocytes/100 WBC (Bld) 20.36 % High 0.00-20.00 [facility] Comment on above: Result Comment: For adults in ED, MDW > 20.0 may be associated with a higher risk of sepsis during the first 12 hrs of hospital admission Performed By: #### B MP, CBC #### [address] Monocytes/100 WBC (Bld) 5.7 % Normal . [facility] Comment on above: Performed By: #### B MP, CBC #### [address] Neutrophils (Bld) [#/Vol] 13.3 10*3/uL High 1.8-7.7 [facility] Comment on above: Performed By: #### B MP, CBC #### [address] Neutrophils/100 WBC (Bld) 86.6 % Normal . [facility] Comment on above: Performed By: #### B MP, CBC #### [place] [address] [place] NRBC% 0.0 /100{WBC} Normal 0-0.5 [facility] Comment on above: Performed By: #### B MP, CBC #### [address] Platelet mean volume (Bld) [Entitic vol] 9.6 fL Normal 6.6-10.1 [facility] Comment on above: Performed By: #### B MP, CBC #### [address] Platelets (Bld) [#/Vol] 246 10*3/uL Normal 150-450 [facility] Comment on above: Performed By: #### B MP, CBC #### [address] RBC (Bld) [#/Vol] 4.47 10*6/uL Normal 3.90-5.[address] [facility] Comment on above: Performed By: #### B MP, CBC #### [address] WBC (Bld) [#/Vol] 15.3 10*3/uL High 4.1-10.[address] [facility] Comment on above: Performed By: #### B MP, CBC #### [address] Creatine Kinaseon 05-24-2023 CK [Catalytic activity/Vol] 251 U/L High 30-223 [facility] Comment on above: Performed By: #### P TT, HEPATIC, BMP, PT #### [address] Creatinine [Mass/volume] in Serum or PlasmaOrdered By: Ria Talamantes on 05-24-2023 Creatinine [Mass/Vol] 1.38 mg/dL 0.70-1.30 [facility] D-Dimer High Sensitivityon 0 05-24-2023 D-Dimer High Sensitivity 296 ng/mL High 0-243 [facility] Comment on above: Result Comment: The reference range for D-dimer is <243 ng/mL D-dimer units. D-dimer results must be used in conjunction with a clinical pretest probability (PTP) assessment model for deep vein thrombosis (DVT) and pulmonary embolism (PE). Results <230 ng/mL d-dimer units can be used as a negative predictor in patients with low or moderate probability for DVT/PE. Results above the exclusion threshold of 230 ng/ml D-dimer units for DVT/PE may indicate the need for further diagnostic testing. D-Dimer can be increased in hospitalized patients due to co-morbid conditions. A hematocrit value greater than 55% may lead to inaccurate results in coagulation testing. Patients having hematocrit values >55% require a special collection tube for coagulation studies. Please contact the laboratory at [phone] for redraw instructions. PERFORMED BY: [place] [address] PATHOLOGIST SANDSTONE INSPECTOR REPAIRER ROBERTO OCAMPO M.D. Performed By: #### P TT, HEPATIC, BMP, PT #### [facility] [address] [place] [address] [place] Dipstick and Microscopicon 0 05-24-2023 Appearance (U) Clear Normal Clear [facility] Comment on above: Order Comment: Name Collection Type:: Clean-Voided Midstream Performed By: #### P TT, HEPATIC, BMP, PT #### [place] [id number] [place] Bacteria,Urine None Seen Normal None Seen [facility] Comment on above: Order Comment: Name Collection Type:: Clean-Voided Midstream Performed By: #### P TT, HEPATIC, BMP, PT #### [place] [address] [place] Bilirubin,Urine Negative Normal Negative [facility] Comment on above: Order Comment: Name Collection Type:: Clean-Voided Midstream Performed By: #### P TT, HEPATIC, BMP, PT #### [place] [address] [place] Color (U) Yellow Normal Yellow [facility] Comment on above: Order Comment: Name Collection Type:: Clean-Voided Midstream Performed By: #### P TT, HEPATIC, BMP, PT #### [facility] [address] [place], [place] [id number] [place] Glucose Ql (U) Normal Normal Normal [facility] Comment on above: Order Comment: Name Collection Type:: Clean-Voided Midstream Performed By: #### P TT, HEPATIC, BMP, PT #### [place] [id number] [place] Hyaline Casts,Urine 0-8 Normal 0-[address] [facility] Comment on above: Order Comment: Name Collection Type:: Clean-Voided Midstream Result Comment: PERF ORMED BY: [place] [address] PATHOLOGIST SANDSTONE INSPECTOR REPAIRER ROBERTO OCAMPO M.D. Performed By: #### P TT, HEPATIC, BMP, PT #### [facility] [address] [place] [address] [place] Ketones Ql (U) Negative Normal Negative [facility] Comment on above: Order Comment: Name Collection Type:: Clean-Voided Midstream Performed By: #### P TT, HEPATIC, BMP, PT #### [place] [address] [place] Leukocyte esterase Test strip Ql (U) Negative Normal Negative [facility] Comment on above: Order Comment: Name Collection Type:: Clean-Voided Midstream Performed By: #### P TT, HEPATIC, BMP, PT #### [place] [address] [place] Nitrite,Urine Negative Normal Negative [facility] Comment on above: Order Comment: Name Collection Type:: Clean-Voided Midstream Performed By: #### P TT, HEPATIC, BMP, PT #### [facility] [address] [place] [address] [place] Occult Blood,Urine Negative Normal Negative [facility] Comment on above: Order Comment: Name Collection Type:: Clean-Voided Midstream Result Comment: PERF ORMED BY: [place] [address] PATHOLOGIST SANDSTONE INSPECTOR REPAIRER ROBERTO OCAMPO M.D. Performed By: #### P TT, HEPATIC, BMP, PT #### [facility] [address] [place], [place] [id number] [place] pH (U) 5.5 [pH] Normal 5.0-9.0 [facility] Comment on above: Order Comment: Name Collection Type:: Clean-Voided Midstream Performed By: #### P TT, HEPATIC, BMP, PT #### [facility] [address] [place], [place] [id number] [place] Protein (U) [Mass/Vol] 30 mg/dL High Negative [facility] Comment on above: Order Comment: Name Collection Type:: Clean-Voided Midstream Performed By: #### P TT, HEPATIC, BMP, PT #### [facility] [address] [place] [address] RBC,Urine None Seen Normal 0-4 [facility] Comment on above: Order Comment: Name Collection Type:: Clean-Voided Midstream Performed By: #### P TT, HEPATIC, BMP, PT #### [facility] [address] [place] [address] Specificy [place],Urine 1.021 Normal 1.001-1.030 [facility] Comment on above: Order Comment: Name Collection Type:: Clean-Voided Midstream Performed By: #### P TT, HEPATIC, BMP, PT #### [address] Squamous Epithelial Cell,Urine None Seen Normal 0-2 [facility] Comment on above: Order Comment: Name Collection Type:: Clean-Voided Midstream Performed By: #### P TT, HEPATIC, BMP, PT #### [address] Urobilinogen,Urine Normal Normal Normal [facility] Comment on above: Order Comment: Name Collection Type:: Clean-Voided Midstream Performed By: #### P TT, HEPATIC, BMP, PT #### [address] WBC,Urine None Seen Normal 0-4 [facility] Comment on above: Order Comment: Name Collection Type:: Clean-Voided Midstream Performed By: #### P TT, HEPATIC, BMP, PT #### [address] ECG 12 lead ECGon 05-24-2023 ECG 12 lead ECG [facility] [place] [address] [place] [address] Electrocardiograph Report Signed Patient: Tejas Ray MR#: [id number] 0 : 1965 Acct:[id number] Age/Sex: 58 / M ADM Date: 05/24/23 Loc: Room: [address] [place] [address] Type: ADM IN Attending Dr: Arturo Dolan DO Ordering Provider: Ria Talamantes APRN Date of Service: 05/24/23 ECG/ECG 12 lead ECG: Shortness of Breath/Dyspnea Copies to: Test Reason : Blood Pressure : 170/089 mmHG Vent. Rate : 164 BPM Atrial Rate : 197 BPM P-R Int : 000 ms QRS Dur : 084 ms QT Int : 276 ms P-R-T Axes : 000 234 054 degrees QTc Int : 455 ms Atrial fibrillation with rapid ventricular response with premature ventricular or aberrantly conducted complexes Right superior axis deviation Nonspecific ST abnormality Abnormal ECG When compared with ECG of 03-SEP-2020 17:35, Atrial fibrillation has replaced Sinus rhythm Vent. rate has increased BY 94 BPM Questionable change in QRS axis ST now depressed in Anterior leads T wave inversion no longer evident in Lateral leads Confirmed by NINO GARRIDO MD ([id number]) on 05/24/2023 7:31:29 PM Referred By: Electronically Signed By:NINO GARRIDO MD Transcribed By: MUS Signed By Nion Garrido MD 05/24/23 193 Normal [facility] Eosinophils Auto (Bld) [#/Vo l]Ordered By: Ria Talamantes on 05-24-2023 Eosinophils (Bld) [#/Vol] 0.1 10*3/uL 0.0-0.45 [facility] Eosinophils/100 WBC Auto (Bl d)Ordered By: Ria Talamantes on 05-24-2023 Eosinophils/100 WBC (Bld) 0.9 % . [facility] Erythrocyte distribution wid th Auto (RBC) [Ratio]Ordered By: Ria Talamantes on 05-24-2023 Erythrocyte distribution width (RBC) [Ratio] 13.9 % 12.0-14.8 [facility] Fibrin D-dimer [Presence] in Platelet poor plasma by Latex agglutinationOrdered By: Ria Talamantes on 05-24-2023 Fibrin D-dimer LA Ql (PPP) 296 ng/mL 0-243 [facility] Comment on above: The reference range for D-dimer is <243 ng/mL D-dimer units.D-dimer results must be used in conjunction with a clinicalpretest probability (PTP) assessment model for deep veinthrombosis (DVT) and pulmonary embolism (PE). Results <230ng/mL d-dimer units can be used as a negative predictor inpatients with low or moderate probability for DVT/PE.Results above the exclusion threshold of 230 ng/ml D-dimerunits for DVT/PE may indicate the need for furtherdiagnostic testing.D-Dimer can be increased in hospitalized patients due toco-morbid conditions.A hematocrit value greater than 55% may lead to inaccurate results in coagulation testing. Patients having hematocrit values >55% require a special collection tube for coagulation studies. Please contact the laboratory at [phone] for redraw instructions. Free T4 (Free Thyroxine)on 0 05-24-2023 Free T4 [Mass/Vol] 0.88 ng/dL Normal 0.61-1.12 [facility] Comment on above: Performed By: #### P TT, HEPATIC, BMP, PT #### [facility] [address] [place] [address] [facility] Glucose [Mass/volume] in Ser um or PlasmaOrdered By: Ria Talamantes on 05-24-2023 Glucose [Mass/Vol] 110 mg/dL 70-100 [facility] Comment on above: ADA recommended refe rence rangeRandom Glucose Reference Range is dependent on time and content of last meal. Glucose of more than 200 mg/dL in a nonstressed, ambulatory subject supports the diagnosis of Diabetes Mellitus. Gram Stainon 05-24-2023 Microscopic observation Gram stain Nom (Unsp spec) Gram Stain Result 1+ Gram Positive Cocci in Clusters 1+ Gram Negative Bacilli 1+ White Blood Cells 1+ Epithelial Cells * This is a corrected result. * A prior result that was reported as final has been changed. PERFORMED BY: [address] [address] PATHOLOGIST SANDSTONE INSPECTOR REPAIRER ROBERTO OCAMPO M.D. [facility] Comment on above: Performed By: #### P TT, HEPATIC, BMP, PT #### [address] Hematocrit Auto (Bld) [Volum e fraction]Ordered By: Ria Talamantes on 05-24-2023 Hematocrit (Bld) [Volume fraction] 43.2 % 38.8-50.0 [facility] Hemoglobin [Mass/volume] in BloodOrdered By: Ria Talamantes on 05-24-2023 Hemoglobin (Bld) [Mass/Vol] 14.6 g/dL 13.0-17.0 [facility] INR in Platelet poor plasma by Coagulation assayOrdered By: Ria Talamantes on 05-24-2023 INR Coag (PPP) [Relative time] 1.1 {INR} [facility] Comment on above: INR Therapeutic Rang e A) Pre- and Peroperative OAT started two weeks before surgery. NOT HIP SURGERY: 1.5 - 2.5 HIP SURGERY: 2 - 3B) Primary and secondary prevention of venous THROMBOSIS: 2 - 3C) Active venous thrombosis, pulmonary embolismand prevention of recurrent venous thrombosis: 2 - 3D) Prevention of arterial thromboembolismincluding patients with mechanical heart valves: 3 - 4.5 Ketones Auto test strip (U) [Mass/Vol]Ordered By: Ria Talamantes on 05-24-2023 Ketones (U) [Mass/Vol] Negative Negative [facility] Vitaliy Thyroxine (T4)on T4 [Mass/Vol] 6.9 ug/dL Normal 4.5-12.0 [facility] Comment on above: Result Comment: Perf ormed at: CB - [facility] [address] [id number] Business Services Assistant: Edwin Nazario PhD, Phone: [phone] PERFORMED BY: [place] [address] PATHOLOGIST SANDSTONE INSPECTOR REPAIRER ROBERTO OCAMPO M.D. Performed By: #### L C T4 #### [facility] , Laboratory - UrinalysisOrder ed By: Ria Talamantes on 05-24-2023 Hyaline casts LM Ql (Urine sed) 0-8 [LPF] 0-8 [facility] Lactate [Moles/volume] in Se rum or PlasmaOrdered By: Ria Talamantes on 05-24-2023 Lactate [Moles/Vol] 1.8 mmol/L 0.5-2.[address] [facility] Lactic Acidon 05-24-2023 Lactate [Moles/Vol] 1.8 mmol/L Normal 0.5-2.[address] [facility] Comment on above: Result Comment: PERF ORMED BY: [facility] [address] [place] [address] PATHOLOGIST SANDSTONE INSPECTOR REPAIRER ROBERTO OCAMPO M.D. Performed By: #### P TT, HEPATIC, BMP, PT #### [facility] [address] Leukocytes [#/volume] correc isaiah for nucleated erythrocytes in Blood by Automated counOrdered By: Ria Talamantes on 05-24-2023 WBC corrected for nucl RBC Auto (Bld) [#/Vol] 15.3 10*3/uL 4.1-10.5 [facility] Lymphocytes Auto (Bld) [#/Vo l]Ordered By: Ria Talamantes on 05-24-2023 Lymphocytes (Bld) [#/Vol] 1.0 10*3/uL 1.00-4.8 [facility] Lymphocytes/100 WBC Auto (Bl d)Ordered By: Ria Talamantes on 05-24-2023 Lymphocytes/100 WBC (Bld) 6.3 % . [facility] MCH Auto (RBC) [Entitic mass ]Ordered By: Ria Talamantes on 05-24-2023 MCH (RBC) [Entitic mass] 32.7 pg 27.5-35.2 [facility] MCHC Auto (RBC) [Mass/Vol]Or dered By: Ria Talamantes on 05-24-2023 MCHC (RBC) [Mass/Vol] 33.8 g/dL 32.5-35.6 [facility] MCV Auto (RBC) [Entitic vol] Ordered By: Ria Talamantes on 05-24-2023 MCV (RBC) [Entitic vol] 96.7 fL 83.5-101 [facility] Magnesiumon 05-24-2023 Magnesium [Mass/Vol] 1.9 mg/dL Normal 1.9-2.7 [facility] Comment on above: Result Comment: PERF ORMED BY: [facility] [address] [place] [address] PATHOLOGIST SANDSTONE INSPECTOR REPAIRER ROBERTO OCAMPO M.D. Performed By: #### B MP, CBC #### [facility] [address] Magnesium [Mass/volume] in S rafy or PlasmaOrdered By: Ria Talamantes on 05-24-2023 Magnesium [Mass/Vol] 1.9 mg/dL 1.9-2.7 [facility] Monocyte distribution width [Entitic volume] in Blood by AutomatedOrdered By: Ria Talamantes on 05-24-2023 Monocyte distribution width Auto (Bld) [Entitic vol] 20.36 % 0.00-20.00 [facility] Comment on above: For adults in ED, MD W > 20.0 may be associated with a higher risk of sepsis during the first 12 hrs of hospital admission Monocytes Auto (Bld) [#/Vol] Ordered By: Ria Talamantes on 05-24-2023 Monocytes (Bld) [#/Vol] 0.9 10*3/uL 0.0-0.8 [facility] Monocytes/100 WBC Auto (Bld) Ordered By: Ria Talamantes on 05-24-2023 Monocytes/100 WBC (Bld) 5.7 % . [facility] Natriuretic peptide B [Mass/ Vol]Ordered By: Ria Talamantes on 05-24-2023 Natriuretic peptide B (Bld) [Mass/Vol] 221.0 pg/mL 5-100 [facility] Neutrophils Auto (Bld) [#/Vo l]Ordered By: Ria Talamantes on 05-24-2023 Neutrophils (Bld) [#/Vol] 13.3 10*3/uL 1.8-7.7 [facility] Neutrophils/100 WBC Auto (Bl d)Ordered By: Ria Talamantes on 05-24-2023 Neutrophils/100 WBC (Bld) 86.6 % . [facility] Nitrite Test strip Ql (U)Ord ered By: Ria Talamantes on 05-24-2023 Nitrite Ql (U) Negative Negative [facility] No Panel InformationOrdered By: Ria Talamantes on 05-24-2023 Estimated GFR (CKD-EPI) 58.542 mL/Min [facility] Creatinine Clearance (Chem 79.52 [facility] Nucleated erythrocytes [Pres ence] in Blood by Automated countOrdered By: Ria Talamantes on 05-24-2023 Nucleated RBC Auto Ql (Bld) 0.0 /100{WBC} 0-0.5 [facility] Partial Thromboplastin Timeo n 05-24-2023 aPTT Coag (Bld) [Time] 27.5 s Normal 25.1-36.5 [facility] Comment on above: Result Comment: A he matocrit value greater than 55% may lead to inaccurate results in coagulation testing. Patients having hematocrit values >55% require a special collection tube for coagulation studies. Please contact the laboratory at [phone] for redraw instructions. PERFORMED BY: [place] [address] PATHOLOGIST SANDSTONE INSPECTOR REPAIRER ROBERTO OCAMPO M.D. Performed By: #### P TT, HEPATIC, BMP, PT #### [address] Platelet mean volume Auto (B ld) [Entitic vol]Ordered By: Ria Talamantes on 05-24-2023 Platelet mean volume (Bld) [Entitic vol] 9.6 fL 6.6-10.1 [facility] Platelets Auto (Bld) [#/Vol] Ordered By: Ria Talamantes on 05-24-2023 Platelets (Bld) [#/Vol] 246 10*3/uL 150-450 [facility] Potassium [Moles/volume] in Serum or PlasmaOrdered By: Ria Talamantes on 05-24-2023 Potassium [Moles/Vol] 4.1 mmol/L 3.5-5.1 [facility] Protein Auto test strip (U) [Mass/Vol]Ordered By: Ria Talamantes on 05-24-2023 Protein (U) [Mass/Vol] 30 mg/dL Negative Fi [facility] Prothrombin Time INRon 05-24 INR Coag (PPP) [Relative time] 1.1 {INR} Normal [facility] Comment on above: Result Comment: INR Therapeutic Range A) Pre- and Peroperative OAT started two weeks before surgery. NOT HIP SURGERY: 1.5 - 2.5 HIP SURGERY: 2 - 3 B) Primary and secondary prevention of venous THROMBOSIS: 2 - 3 C) Active venous thrombosis, pulmonary embolism and prevention of recurrent venous thrombosis: 2 - 3 D) Prevention of arterial thromboembolism including patients with mechanical heart valves: 3 - 4.5 Performed By: #### P TT, HEPATIC, BMP, PT #### [facility] [address] [place] [id number] [facility] PT Coag (PPP) [Time] 12.8 s Normal 9.0-12.9 [facility] Comment on above: Result Comment: A he matocrit value greater than 55% may lead to inaccurate results in coagulation testing. Patients having hematocrit values >55% require a special collection tube for coagulation studies. Please contact the laboratory at [phone] for redraw instructions. Performed By: #### P TT, HEPATIC, BMP, PT #### [facility] [address] [place] [id number] [facility] Prothrombin time (PT)Ordered By: Ria Talamantes on 05-24-2023 PT Coag (PPP) [Time] 12.8 s 9.0-12.9 [facility] Comment on above: A hematocrit value g reater than 55% may lead to inaccurate results in coagulation testing. Patients having hematocrit values >55% require a special collection tube for coagulation studies. Please contact the laboratory at [phone] for redraw instructions. RBC Auto (Bld) [#/Vol]Ordere d By: Ria Talamantes on 05-24-2023 RBC (Bld) [#/Vol] 4.47 10*6/uL 3.90-5.[address] [facility] Serum or plasma anion gap de terminationOrdered By: Ria Talamantes on 05-24-2023 Anion gap [Moles/Vol] 13.0 mmol/L 6.0-15.0 [facility] Sodium [Moles/volume] in Ser um or PlasmaOrdered By: Ria Talamantes on 05-24-2023 Sodium [Moles/Vol] 136 mmol/L 136-145 [facility] Specific gravity Auto test s trip (U) [Rel density]Ordered By: Ria Charlesrosemarie on 05-24-2023 Specific gravity (U) [Rel density] 1.021 1.001-1.030 [facility] Squamous epithelial cells de tection in urine sediment by light microscopyOrdered By: Ria Talamantes on 05-24-2023 Epithelial cells.squamous LM Ql (Urine sed) None seen [HPF] 0-2 [facility] Thyroid Stimulating Hormoneo n 05-24-2023 TSH Qn 1.10 m[IU]/L Normal 0.45-5.33 [facility] Comment on above: Result Comment: PERF ORMED BY: [place] [address] PATHOLOGIST SANDSTONE INSPECTOR REPAIRER ROBERTO OCAMPO M.D. Performed By: #### P TT, HEPATIC, BMP, PT #### [facility] [address] [place] [address] [place] Troponin I High Sensitivityo n 05-24-2023 Troponin I High Sensitivity 11.5 pg/mL Normal 0.0-20.0 [facility] Comment on above: Result Comment: PERF ORMED BY: [place] [address] PATHOLOGIST SANDSTONE INSPECTOR REPAIRER ROBERTO OCAMPO M.D. Performed By: #### P TT, HEPATIC, BMP, PT #### [facility] [address] [place] [address] [place] Troponin I High Sensitivity 8.9 pg/mL Normal 0.0-20.0 [facility] Comment on above: Result Comment: PERF ORMED BY: [facility] [address] [place] [address] PATHOLOGIST SANDSTONE INSPECTOR REPAIRER ROBERTO OCAMPO M.D. Performed By: #### B MP, CBC #### [facility] [address] [place] [address] [place] Troponin I.cardiac [Mass/vol ume] in Serum or Plasma by Detection limit <= 0.01 ng/Ordered By: Ria Talamantes on 05-24-2023 Troponin I.cardiac DL <= 0.01 ng/mL [Mass/Vol] 8.9 pg/mL 0.0-20.0 [facility] Urea nitrogen [Mass/volume] in Serum or PlasmaOrdered By: Ria Talamantes on 05-24-2023 Urea nitrogen [Mass/Vol] 23 mg/dL 7-25 [facility] Urine bacteria detection by automated methodOrdered By: Ria Talamantes on 05-24-2023 Bacteria Auto Ql (U) None seen None Seen [facility] Urine clarity by refractomet ry automatedOrdered By: Ria Talamantes on 05-24-2023 Clarity Refractometry automated (U) Clear Clear [facility] Urine glucose measurement by automated test strip (mass/volume)Ordered By: Ria Talamantes on 05-24-2023 Glucose Auto test strip (U) [Mass/Vol] Normal mg/dL Normal [facility] Urine hemoglobin detection b y automated test stripOrdered By: Ria Talamantes on 05-24-2023 Hemoglobin Auto test strip Ql (U) Negative Negative [facility] Urine leukocyte esterase det ection by automated test stripOrdered By: Ria Talamantes on 05-24-2023 Leukocyte esterase Auto test strip Ql (U) Negative Negative [facility] Urobilinogen Auto test strip (U) [Mass/Vol]Ordered By: Ria Talamantes on 05-24-2023 Urobilinogen (U) [Mass/Vol] Normal mg/dL Normal [facility] WBC Auto (Bld) [#/Vol]Ordere d By: Ria Talamantes on 05-24-2023 WBC (Bld) [#/Vol] 15.3 10*3/uL 4.1-10.[address] [facility] pH Auto test strip (U)Ordere d By: Ria Talamantes on 05-24-2023 pH (U) 5.5 [pH] 5.0-9.0 [facility] CBC AUTO DIFFon 03-10-2021 BASO # 0.1 103/ul Normal 0.0-0.1 [facility] Comment on above: Performed By: #### C BC #### [facility] [address] [place] [address] Dr. Christina Heredia Basophils/100 WBC (Bld) 0.7 % Normal 0.2-2.0 [facility] Comment on above: Performed By: #### C BC #### [facility] [address] [place] [address] Dr. Christina Heredia EO # 0.2 103/ul Normal 0.0-0.7 [facility] Comment on above: Performed By: #### C BC #### [facility] [address] [place] [address] Dr. Christina Heredia Eosinophils/100 WBC (Bld) 1.7 % Normal 0.9-7.0 [facility] Comment on above: Performed By: #### C BC #### [facility] [address] [place] [address] Dr. Christina Heredia Erythrocyte distribution width (RBC) [Ratio] 12.6 % Normal 11.0-15.0 [facility] Comment on above: Performed By: #### C BC #### [facility] [address] [place] [address] Dr. Christina Heredia Hematocrit (Bld) [Volume fraction] 43.9 % Normal 42.0-54.0 [facility] Comment on above: Performed By: #### C BC #### [facility] [address] [place] [address] Dr. Christina Heredia Hemoglobin (Bld) [Mass/Vol] 14.1 g/dL Normal 14.0-18.0 [facility] Comment on above: Performed By: #### C BC #### [facility] [address] [place] [address] Dr. Christina Heredia IG # 0.13 10e3/ul Critically high 0.00-0.03 [facility] Comment on above: Performed By: #### C BC #### [facility] [address] [place] [address] Dr. Christina Heredia IG % 1.5 % Critically high 0.0-0.5 [facility] Comment on above: Performed By: #### C BC #### [facility] [address] [place] [address] Dr. Christina Heredia LYMPH # 2.4 103/ul Normal 1.2-3.8 [facility] Comment on above: Performed By: #### C BC #### [facility] [address] [place] [address] Dr. Christina Heredia Lymphocytes/100 WBC (Bld) 27.0 % Normal 20.5-60.0 [facility] Comment on above: Performed By: #### C BC #### [facility] [address] [place] [address] Dr. Christina Heredia MANUAL DIFF REQ NO Normal [facility] Comment on above: Performed By: #### C BC #### [facility] [address] [place] [address] Dr. Christina Hreedia MCH (RBC) [Entitic mass] 30.9 pg Normal 25.9-34.0 [facility] Comment on above: Performed By: #### C BC #### [facility] [address] [place] [address] Dr. Christina Heredia MCHC (RBC) [Mass/Vol] 32.1 g/dL Normal 29.9-35.2 [facility] Comment on above: Performed By: #### C BC #### [facility] [address] [place] [address] Dr. Christina Heredia MCV (RBC) [Entitic vol] 96.3 fL Critically high 80.0-94.0 [facility] Comment on above: Performed By: #### C BC #### [facility] [address] [place] [address] Dr. Christina Heredia MONO # 0.6 103/ul Normal 0.3-0.8 [facility] Comment on above: Performed By: #### C BC #### [facility] [address] [place] [address] Dr. Christina Heredia Monocytes/100 WBC (Bld) 6.4 % Normal 1.7-12.0 [facility] Comment on above: Performed By: #### C BC #### [facility] [address] [place] [address] Dr. Christina Heredia NEUT # 5.5 103/ul Normal 1.4-6.5 [facility] Comment on above: Performed By: #### C BC #### [facility] [address] [place] [address] Dr. Christina Heredia Neutrophils/100 WBC (Bld) 62.7 % Normal 43.0-75.0 [facility] Comment on above: Performed By: #### C BC #### [facility] [address] [place] [address] Dr. Christina Heredia Platelet mean volume (Bld) [Entitic vol] 10.8 fL Normal 9.5-13.5 [facility] Comment on above: Performed By: #### C BC #### [facility] [address] [place] [address] Dr. Christina Heredia PLT 251 103/ul Normal 150-450 [facility] Comment on above: Performed By: #### C BC #### [facility] [address] [place] [address] Dr. Christina Heredia RBC 4.56 106/ul Critically low 4.70-6.10 [facility] Comment on above: Performed By: #### C BC #### [facility] [address] [place] [address] Dr. Christina Heredia WBC 8.7 103/ul Normal 4.0-11.0 [facility] Comment on above: Performed By: #### C BC #### [facility] [address] [place] [address] Dr. Christina Heredia CRPon 03-10-2021 CRP [Mass/Vol] mg/L Normal <=1.0 [facility] Comment on above: Performed By: #### C RP, CMP #### [facility] [address] [place] [address] Dr. Christina Heredia MONOon 03-10-2021 Monocytes (Bld) [#/Vol] Negative Normal NEGATIVE [facility] Comment on above: Performed By: #### M CHRISTIANO #### [facility] [address] [address] [address] Christina Heredia PROF 14(COMP METB)on 021 Albumin [Mass/Vol] 3.3 g/dL Critically low 3.5-5.0 [facility] Comment on above: Performed By: #### C RP, CMP #### [facility] [address] [place] [address] Dr. Christina Heredia Albumin/Globulin [Mass ratio] 0.8 {ratio} Normal [facility] Comment on above: Performed By: #### C RP, CMP #### [facility] [address] [place] [address] Dr. Christina Heredia ALP [Catalytic activity/Vol] 64 U/L Normal 38-126 [facility] Comment on above: Performed By: #### C RP, CMP #### [facility] [address] [place] [address] Dr. Christina Heredia ALT [Catalytic activity/Vol] 42 U/L Normal 21-72 [facility] Comment on above: Performed By: #### C RP, CMP #### [facility] [address] [place] [address] Dr. Christina Heredia Anion gap [Moles/Vol] 11.4 mmol/L Normal [facility] Comment on above: Performed By: #### C RP, CMP #### [facility] [address] [place] [address] Dr. Christina Heredia AST [Catalytic activity/Vol] 18 U/L Normal 17-59 [facility] Comment on above: Performed By: #### C RP, CMP #### [facility] [address] [place] [address] Dr. Christina Heredia Bilirubin [Mass/Vol] 0.5 mg/dL Normal 0.2-1.3 [facility] Comment on above: Performed By: #### C RP, CMP #### [facility] [address] [place] [address] Dr. Christina Heredia Calcium [Mass/Vol] 8.8 mg/dL Normal 8.4-10.2 [facility] Comment on above: Performed By: #### C RP, CMP #### [facility] [address] [address] [address] Chrsitina Heredia Chloride [Moles/Vol] 109 mmol/L Critically high 98-107 [facility] Comment on above: Performed By: #### C RP, CMP #### [facility] [address] [place] [address] Dr. Christina Heredia CO2 [Moles/Vol] 24.3 mmol/L Normal 22.0-30.0 [facility] Comment on above: Performed By: #### C RP, CMP #### [facility] [address] [place] [address] Dr. Christina Heredia Creatinine [Mass/Vol] 1.43 mg/dL Critically high 0.66-1.25 [facility] Comment on above: Performed By: #### C RP, CMP #### [facility] [address] [place] [address] Dr. Christina Heredia EGFR-AF PORTUGUESE >60 Normal >=60 [facility] Comment on above: Performed By: #### C RP, CMP #### [facility] [address] [place] [address] Dr. Christina Heredia EGFR-NON AF [place]UGUESE 51 mL/min/1.73m2 Critically low >=60 [facility] Comment on above: Performed By: #### C RP, CMP #### [facility] [address] [place] [address] Dr. Christina Heredia Globulin (S) [Mass/Vol] 4.1 g/dL Normal [facility] Comment on above: Performed By: #### C RP, CMP #### [facility] [address] [place] [address] Dr. Christina Heredia Glucose [Mass/Vol] 113 mg/dL Critically high 74-106 [facility] Comment on above: Performed By: #### C RP, CMP #### [facility] [address] [place] [address] Dr. Christina Heredia Potassium [Moles/Vol] 4.7 mmol/L Normal 3.4-5.0 [facility] Comment on above: Performed By: #### C RP, CMP #### [facility] [address] [address] [address] Christina Heredia Protein [Mass/Vol] 7.4 g/dL Normal 6.1-8.2 [facility] Comment on above: Performed By: #### C RP, CMP #### [facility] [address] [address] [address] Christina Heredia Sodium [Moles/Vol] 140 mmol/L Normal 137-145 [facility] Comment on above: Performed By: #### C RP, CMP #### [facility] [address] [address] [address] Christina Heredia Urea nitrogen [Mass/Vol] 18.0 mg/dL Normal 9.0-20.0 [facility] Comment on above: Performed By: #### C RP, CMP #### [facility] [address] [place] [address] Dr. Christina Heredia Urea nitrogen/Creatinine [Mass ratio] 12.6 mg/mg Normal [facility] Comment on above: Performed By: #### C RP, CMP #### [facility] [address] [place] [address] Dr. Christina Heredia Vital Signs Date Time Vital Sign Value Performing Clinician Butch lawler 05-28-2023 18:00-0500 Diastolic blood pressure 82 mm[Hg] MD Costa Guevara Work Phone: [facility] 05-28-2023 18:00-0500 Heart rate 128 /min MD Costa Guevara Work Phone: [facility] 05-28-2023 18:00-0500 Respiratory rate 20 /min MD Costa Guevara Work Phone: [facility] 05-28-2023 18:00-0500 SaO2% (BldA) [Mass fraction] 94 % MD Costa Guevara Work Phone: [facility] 05-28-2023 18:00-0500 Systolic blood pressure 131 mm[Hg] MD Costa Guevara Work Phone: [facility] 05-28-2023 12:38-0500 Body height 167.64 cm MD Costa Guevara Work Phone: [facility] 05-28-2023 12:38-0500 Body temperature 98.2 [degF] MD Costa Guevara Work Phone: [facility] 05-28-2023 12:38-0500 Body weight 136.07 kg MD Costa Guevara Work Phone: [facility] 05-27-2023 12:10-0500 Heart rate 92 /min [facility] 05-27-2023 12:10-0500 Respiratory rate 20 /min [facility] 05-27-2023 09:00-0500 Body temperature 97.7 [degF] [facility] 05-27-2023 09:00-0500 Diastolic blood pressure 69 mm[Hg] [facility] 05-27-2023 09:00-0500 SaO2% (BldA) [Mass fraction] 94 % [facility] 05-27-2023 09:00-0500 Systolic blood pressure 114 mm[Hg] [facility] 05-27-2023 08:13-0500 Inhaled oxygen flow rate 1 L/min [facility] 05-27-2023 04:56-0500 Body weight 144.3 kg [facility] 05-24-2023 18:51-0500 Body height 167.64 cm [facility] 05-24-2023 18:31-0500 Diastolic blood pressure 74 mm[Hg] MD Costa Guevara Work Phone: [facility] 05-24-2023 18:31-0500 Heart rate 109 /min MD Costa Guevara Work Phone: [facility] 05-24-2023 18:31-0500 Inhaled oxygen flow rate 2 L/min MD Costa Guevara Work Phone: [facility] 05-24-2023 18:31-0500 Respiratory rate 24 /min MD Costa Guevara Work Phone: [facility] 05-24-2023 18:31-0500 SaO2% (BldA) [Mass fraction] 95 % MD Costa Guevara Work Phone: [facility] 05-24-2023 18:31-0500 Systolic blood pressure 111 mm[Hg] MD Costa Guevara Work Phone: [facility] 05-24-2023 17:09-0500 Body temperature 99.6 [degF] MD Costa Guevara Work Phone: [facility] 05-24-2023 14:35-0500 Body height 167.64 cm MD Costa Guevara Work Phone: [facility] 05-24-2023 14:35-0500 Body weight 151.2 kg MD Costa Guevara Work Phone: [facility] Encounters Encounter Date Encounter Type Care Provider Facility Start: 05-28-2023 End: 05-28-2023 Emergency department patient visit Edwin Mckinney Facility:[facility] Start: 05-28-2023 End: 05-28-2023 Emergency department patient visit MD Costa Guevara Work Phone: [facility] Work Phone: Start: 05-24-2023 End: 05-27-2023 Evaluation and management of inpatient Concepción Mischler Facility:[facility] Start: 05-24-2023 Evaluation and management of inpatient MD Costa Guevara Work Phone: [facility] [place] Work Phone: Start: 05-24-2023 Non-patient / Non-visit [facility] Work Phone: Start: 03-10-2021 End: 03-11-[address] COSTA GUEVARA Facility:[facility] Procedures Date Procedure Procedure Detail Performing Clinician Start: 05-28-2023 End: 05-28-2023 Plain chest X-ray MD Costa Guevara Work Phone: Start: 05-24-2023 CT angiography of thorax MD Costa Guevara Work Phone: Start: 05-24-2023 SARS-CoV-2, Influenz a & RSV (PCR) MD Costa Guevara Work Phone: Plan of Treatment Date Care Activity Detail Author Start: 05-28-2023 Duplex scan of lower limb veins US venous duplex LE RT [facility] Start: 05-28-2023 US Lower extremity v ein - right [facility] Start: 05-27-2023 [facility] Start: 05-24-2023 Hospital admission [facility] Start: 05-24-2023 [facility] Start: 05-24-2023 Bacteria identified in Blood by Culture [facility] Patient Education Atrial fibrill ation Muscle and Bone Pain (DC) [facility] Work Phone: Patient referral [facility] Work Phone: Immunizations Immunization Date Immunization Notes Care Provider Fa cility 05-27-2023 influenza, injectabl e, quadrivalent, preservative free [facility] 09-01-2020 COVID-19 mRNA, Comirnaty (Pfizer) MD Costa Guevara Work Phone: [facility] 08-11-2020 COVID-19 mRNA Comirnatgrisel (Pfizer) MD Costa Guevara Work Phone: [facility] 03-24-2019 tetanus toxoid, redu rene diphtheria toxoid, and acellular pertussis vaccine, adsorbed MD Costa Guevara Work Phone: [facility] Payers Date Payer Category Payer Self-pay [id number] [facility] 1965 Unknown [id number] 1961 [employer] ( and others) [id number] Unknown [id number] Unknown [id number] Social History Date Type Detail Facility Start: 05-24-2023 End: 05-28-2023 Tobacco smoking status NHIS Never smoked tobacco (finding) [facility] Start: 1965 Sex Assigned At Male F [facility] Evaluation note Note Date & Type Note Facility Evaluation note Diagnosis Onset Date Atrial fibrillation with RVR acute Hypoxia acute Pneumonia acute Sepsis acute [facility] Work Phone: Evaluation note Note Date & Type Note Facility Evaluation note Diagnosis Onset Date Atrial fibrillation with RVR acute Bacteremia due to Streptococcus pneumoniae acute BMI 50.0-59.9, adult acute Hyperglycemia acute Hypoxia acute Infection, streptococcus pneumoniae acute Leg edema acute Pneumonia acute Sepsis acute [facility] Work Phone: Hospital Discharge instructions Note Date & Type Note Facility Hospital Discharge instructions Ambulatory OrdersDME Home Medical Equipment Time Frame: 1 Day, Location: Determined By Patient Additional Instructions Wound care: - Every 2 days - left leg- clean wounds with vashe, apply skin prep to tam wound, apply silver sorb gel to wound bed and place Telfa/non-stick dressing/Large band-aid. [facility] Work Phone: Summary Purpose Family History No Family History Records Found Relationship Condition Age at Onset Recorded Date/T ly Not Specified Cerebrovascular accident (CVA) Unknown Not Specified Cerebral aneurysm Unknown Advance Directives No Advanced Directives Records Found Advance Directive Response Recorded Date/ Time Advance Directives No March 8:22pm Chief Complaint and Reason for Visit Chief Complaint Shortness of Breath Reason for Visit Atrial fibrillation with RVR Hypoxia Pneumonia Sepsis Chief Complaint Shortness of Breath Reason for Visit Atrial fibrillation with RVR Bacteremia due to Streptococcus pneumoniae BMI 50.0-59.9, adult Hyperglycemia Hypoxia Infection, streptococcus pneumoniae Leg edema Pneumonia Sepsis Chief Complaint Shortness of Breath ankle swelling Reason for Visit Atrial fibrillation with RVR Bacteremia due to Streptococcus pneumoniae BMI 50.0-59.9, adult Hyperglycemia Hypoxia Infection, streptococcus pneumoniae Leg edema Pneumonia Sepsis Additional Source Comments (unrecognized sect ion and content) No Status Records FoundNo Status Records Found INFORMATION SOURCE (unrecogn ized section and content) DATE CREATED AUTHOR 03/17/2021 [facility] DATE CREATED AUTHOR AUTHOR'S ORGANIZ ATION 06/12/2023 [facility] Care Teams (unrecognized sec tion and content) Team Status: Active Member Role Status Dates Costa Guevara MD Primary Care Provider Active Team Status: Active Member Role Status Dates Costa Guevara MD Primary Care Provider Active Start: May 24, 2023 Bassem Lopez DO Emergency Provider Active St art: May 24, 2023 Arturo Dolan DO Admit Provider , Attending Provider Active Start: May 24, 2023 Team Status: Active Member Role Status Dates Costa Guevara MD Primary Care Provider Active Start: May 24, 2023 Bassem Lopez DO Emergency Provider Active St art: May 24, 2023 Arturo Dolan DO Admit Provider , Other Provider Active Start: May 24, 2023 Maddi Leone APRN Attending Provider Active Sta rt: May 24, 2023 Delvis Myles DO Other Provider Active Start : May 24, 2023 Mony Orozco MD Other Provider Active Start: May 24, 2023 Tejas Schreiber MD Other Provider Active Start: May 24, 2023 Linh Paz MD Other Provider Active St art: May 24, 2023 Anthony Rossi MD Other Provider Active Start: May 24, 2023 Leigh Garrido APRN Other Provider Active Start: May 24, 2023 Sweta Colbert MD Other Provider Active Start: J anuary 2023 Carrie Benedict MD Other Provider Active Start: May 24, 2023 Corky Ge MD Other Provider Active Start: J anuary 2023 Shanel Card , [facility]- Other Provider Active Sta rt: May 24, 2023 Shana Angeles MD Other Provider Active Start: May 24, 2023 Team Status: Inactive Member Role Status Dates Costa Guevara MD Primary Care Provider Active Start: May 28, 2023 End: May 28, 2023 Edwin Mckinney PA-C Emergency Provider Active Start: May 28, 2023 End: May 28, 2023 Goals (unrecognized section and content) Goals may be documented in a n alternate sectionGoals may be documented in an alternate sectionGoals may be documented in an alternate section FOR RECORDS PERTAINING TO PATIENTS WHO ARE OR HAVE BEEN ENROLLED IN A CHEMICAL DEPENDENCY/SUBSTANCEABUSE PROGRAM, SOME INFORMATION MAY BE OMITTED. This clinical summary was aggregated from multiple sources. Caution should be exercised in using it in the provision of clinical care. This summary normalizes information from multiple sources, and as a consequence, information in this document may materially change the coding, format and clinical context of patient data. In addition, data may be omitted in some cases. CLINICAL DECISIONS SHOULD BE BASED ON THE PRIMARY CLINICAL RECORDS. [facility] [employer] [facility]. provides no warranty or guarantee of the accuracy or completeness of information in this document.
--- NOTE | 2023-07-26 09:46 | ED_ITS ---
HPI - Skin/Abscess/Foreign Bdy General Chief complaint: Skin/Abscess/Foreign Body Stated complaint: ABSCESS Time Seen by Provider: 07/26/23 09:20 Source: patient Mode of arrival: walk-in History of Present Illness HPI narrative: Patient sent from Dr Guevara's office for treatment and evaluation of an abscess to the patient's medial proximal left thigh. Patient had a fever last night to max temp of 102F. he is not a diabetic but is obese. He takes meds for HTN and AFib, including Eliquis daily. Related Data Home Medications ?Medication ?Instructions ?Recorded ?Confirmed amiodarone 200 mg tablet 200 mg PO Q12H 07/26/23 07/26/23 apixaban 5 mg tablet (Eliquis) 5 mg PO Q12H 07/26/23 07/26/23 diclofenac sodium 75 mg 75 mg PO Q12H 07/26/23 07/26/23 tablet,delayed release diltiazem HCl 120 mg 120 mg PO Q24H 07/26/23 07/26/23 capsule,extended release 24 hr furosemide 40 mg tablet 40 mg PO Q12H 07/26/23 07/26/23 pantoprazole 40 mg tablet,delayed 40 mg PO DAILY 07/26/23 07/26/23 release Allergies Allergy/AdvReac Type Severity Reaction Status Date / Time No Known Drug Allergies Allergy Verified 07/26/23 09:14 Exam Narrative Exam Narrative: Nurses notes and vital signs reviewed and patient is not hypoxic. Afebrile General: Well-appearing and in no apparent distress. Skin: Warm, dry, no pallor noted. 5 cm diameter abscess to the medial and proximal aspect of the left lower extremity. It does not migrate into the pelvis or scrotum. He has an open area that is weeping serous fluid at this time. The abscess is indurated but I do not appreciate any area of fluctuance that is ideal for lancing. Eye: Pupils are equal, round and EOMI. No scleral icterus. Ears, Nose, Mouth, and Throat: Oral mucosa is moist Cardiovascular: Tachycardia. Respiratory: No accessory muscle use or respiratory distress. Lungs are clear to auscultation, no wheezing, rales or rhonchi Chest Wall: no tenderness Musculoskeletal: Abscess to the medial and proximal left thigh as detailed above. The patient has normal ROM In both lower extremity, no calf or popliteal tenderness, no lower extremity edema/swelling Neurological: A&O x4. No cranial nerve dysfunction observed. No truncal ataxia. Moves all extremities. Sensation intact. Psychiatric: Cooperative and interactive. Normal mood and affect. Constitutional Vital Signs, click to edit/add: Last Vital Signs Temp 98.3 F 07/26/23 09:14 Pulse 87 07/26/23 11:10 Resp 35 H 07/26/23 11:10 BP 134/101 H 07/26/23 09:16 Pulse Ox 94 L 07/26/23 11:10 O2 Del Method Room Air 07/26/23 09:14 Course Vital Signs Vital signs: Vital Signs Temperature 98.3 F 07/26/23 09:14 Pulse Rate 96 H 07/26/23 09:14 Respiratory Rate 18 07/26/23 09:14 Blood Pressure 148/92 H 07/26/23 09:14 Pulse Oximetry 96 07/26/23 09:14 Oxygen Delivery Method Room Air 07/26/23 09:14 Temperature 98.3 F 07/26/23 09:14 Pulse Rate 87 07/26/23 11:10 Respiratory Rate 35 H 07/26/23 11:10 Blood Pressure 134/101 H 07/26/23 09:16 Pulse Oximetry 94 L 07/26/23 11:10 Oxygen Delivery Method Room Air 07/26/23 09:14 MDM - Skin/Abscess/Foreign Bdy MDM Narrative Medical decision making narrative: I communicated with Dr. Guevara about this patient. At his request, peripheral IV was established and blood drawn and sent for testing. Patient was sent for CT scanning of the pelvis without contrast. Additionally a swab was obtained from the abscess site. The patient was given IV clindamycin. He will be admitted to the hospital under Dr. Guevara's care. The patient takes Eliquis daily and therefore I did not want to go probing into the patient's thigh while he is currently on blood thinner. Dr. Guevara had already reached out to Dr. Miller's to converse about this patient therefore I will speak with Dr. Dorantes and let him know that the patient will be admitted - inpatient - to Dr. Guevara's service at his request. White blood cell count elevated at 13. CMP was negative including BUN and creatinine which are at the patient's baseline. Lactate was 1.5. Procalcitonin was 0.05. Blood cultures are pending. CT reveals thigh cellulitis, possible developing abscess, no evidence of Dannie's or drainable fluid. Patient is agreeable to admission At Dr Guevara's request I let Dr Dorantes know what our workup showed. Lab Data Attestation: I reviewed the patient's lab results. Labs: Lab Results 07/26/23 Range/Units 09:30 WBC 13.0 H (4.0-11.0) 10^3/uL RBC 4.29 L (4.70-6.10) 10^6/uL Hgb 14.0 (14.0-18.0) g/dL Hct 43.5 (42.0-54.0) % MCV 101.4 H (80.0-94.0) fL MCH 32.6 (25.9-34.0) pg MCHC 32.2 (29.9-35.2) g/dL RDW 13.5 (11.0-15.0) % Plt Count 237 (150-450) 10^3/uL MPV 10.8 (9.5-13.5) fL Neut % (Auto) 66.9 (43.0-75.0) % Lymph % (Auto) 21.4 (20.5-60.0) % [place] % (Auto) 9.5 (1.7-12.0) % Eos % (Auto) 1.2 (0.9-7.0) % Baso % (Auto) 0.5 (0.2-2.0) % Neut # (Auto) 8.7 H (1.4-6.5) 10^3/uL Lymph # (Auto) 2.8 (1.2-3.8) 10^3/uL [place] # (Auto) 1.2 H (0.3-0.8) 10^3/uL Eos # (Auto) 0.2 (0.0-0.7) 10^3/uL Baso # (Auto) 0.1 (0.0-0.1) 10^3/uL Abs Immat Gran (auto) 0.07 H (0.00-0.03) 10^3/uL Imm/Tot Granulo (auto) 0.5 (0.0-0.5) % Sodium 140 (136-145) mmol/L Potassium 3.9 (3.5-5.1) mmol/L Chloride 103 (98-107) mmol/L Carbon Dioxide 22.0 (21.0-32.0) mmol/L Anion Gap 18.9 BUN 19.0 H (7.0-18.0) mg/dL Creatinine 1.60 H (0.70-1.30) mg/dL Est GFR ( Amer) 54 L (>=60) Est GFR (Non-Af Amer) 44 L (>=60) BUN/Creatinine Ratio 11.9 Glucose 113 H (74-106) mg/dL Lactate 1.5 (0.4-2.0) mmol/L Calcium 8.7 (8.5-10.1) mg/dL Total Bilirubin 0.9 (0.2-1.0) mg/dL AST 13 L (15-37) U/L ALT 23 (16-63) U/L Alkaline Phosphatase 71 (46-116) U/L Total Protein 7.6 (6.4-8.2) g/dL Albumin 3.1 L (3.4-5.0) g/dL Globulin 4.5 g/dL Albumin/Globulin Ratio 0.7 Procalcitonin 0.05 (0.00-0.50) ng/mL Imaging Data CT scan - pelvis: Radiologist's impression: ITS Impressions Pelvis CT 07/26/23 10:27 IMPRESSION: 1. Probable cellulitis within the upper inner thigh on the left with possible phlegmon versus developing abscess. No large drainable fluid collection or abscess. No definite evidence of Dannie's gangrene identified at this time. No deep necrotizing infection identified. Electronically authenticated by: VA AVALOS Date: 07/26/2023 11:07 Discharge Plan Discharge Chief Complaint: Skin/Abscess/Foreign Body Clinical Impression: Abscess of skin or subcutaneous tissue Qualifiers: Site of cutaneous abscess of extremity: lower extremity Laterality: left Patient Disposition: Admitted As Inpatient Time of Disposition Decision: 11:01
[2023-07-26 09:50] LABS: Basophils Absolute Auto 0.1 10^3/uL (0.0-0.1); Basophils Percent Auto 0.5 % (0.2-2.0); Eosinophils Absolute Auto 0.2 10^3/uL (0.0-0.7); Eosinophils Percent Auto 1.2 % (0.9-7.0); Hematocrit 43.5 % (42.0-54.0); Immature Granulocytes Abs Auto 0.07 10^3/uL (0.00-0.03); Immature Granulocytes Pct Auto 0.5 % (0.0-0.5); Lymphocytes Absolute Auto 2.8 10^3/uL (1.2-3.8); Lymphocytes Percent Auto 21.4 % (20.5-60.0); Mean Corpuscular HGB Conc 32.2 g/dL (29.9-35.2); Mean Corpuscular Hemoglobin 32.6 pg (25.9-34.0); Mean Corpuscular Volume 101.4 fL (80.0-94.0); Mean Platelet Volume 10.8 fL (9.5-13.5); Monocytes Absolute Auto 1.2 10^3/uL (0.3-0.8); Monocytes Percent Auto 9.5 % (1.7-12.0); Neutrophils Absolute Auto 8.7 10^3/uL (1.4-6.5); Neutrophils Percent Auto 66.9 % (43.0-75.0); Platelet Count 237 10^3/uL (150-450); Red Blood Count 4.29 10^6/uL (4.70-6.10); Red Cell Distribution Width 13.5 % (11.0-15.0)
[2023-07-26] MEDS: CLINDAMYCIN PHOSPHATE/D5W 900 MG/50 ML PIGGYBACK 100 MG IV (09:56)
[2023-07-26 10:12] LABS: Alanine Aminotransferase 23 U/L (16-63); Albumin Globulin Ratio 0.7; Albumin Level 3.1 g/dL (3.4-5.0); Alkaline Phosphatase 71 U/L (46-116); Anion Gap 18.9; Aspartate Amino Transferase 13 U/L (15-37); BUN Creatinine Ratio 11.9; Bilirubin Total 0.9 mg/dL (0.2-1.0); Calcium 8.7 mg/dL (8.5-10.1); Chloride 103 mmol/L (98-107); Estimated GFR (African America 54 (>=60); Estimated GFR (Non-African Ame 44 (>=60); Globulin 4.5 g/dL; Glucose 113 mg/dL (74-106); Potassium 3.9 mmol/L (3.5-5.1); Sodium 140 mmol/L (136-145); Total Protein 7.6 g/dL (6.4-8.2)
[2023-07-26 10:15] LABS: Lactate/Lactic Acid 1.5 mmol/L (0.4-2.0)
[2023-07-26 10:22] LABS: PROCALCITONIN 0.05 ng/mL (0.00-0.50)
--- NOTE | 2023-07-26 10:27 | CT_ITS ---
The [address] [address] Patient Name: ROB FRANK MRN: [id number] date: 1965 Sex: M Assigned Patient Location: ER Current Patient Location: ED.MAIN Accession/Order Number: [id number] Exam Date: 07/26/2023 10:15 Report Date: 07/26/2023 11:07 At the request of: CHRIS PETERSON Procedure: CT pelvis wo con EXAM TYPE: CT pelvis wo con EXAM DATE AND TIME: 07/26/2023 10:15 AM EDT INDICATION: 58 years old Male with abscess COMPARISON: None TECHNIQUE: CT imaging of the pelvis was obtained without contrast. Dose reduction techniques were achieved by using automated exposure control and/or adjustment of mA and/or kV according to patient size and/or use of iterative reconstruction technique. FINDINGS: There is focal skin thickening is subcutaneous edema involving upper middle thigh/groin of the left lower extremity. There is mild skin thickening in the adjacent contralateral side. Phlegmon versus developing abscess is noted, best seen on the coronal images spanning approximately 4.6 cm in craniocaudal dimension. This appears to track to the skin. No subcutaneous gas identified. No definite evidence of Dannie's gangrene identified at this time. Probable reactive left inguinal lymph nodes. No intramuscular edema identified. No acute osseous abnormality is evident. Moderate bilateral hip osteoarthritis. Limited evaluation of the pelvic viscera is unremarkable. CT/CT pelvis wo con IMPRESSION: 1. Probable cellulitis within the upper inner thigh on the left with possible phlegmon versus developing abscess. No large drainable fluid collection or abscess. No definite evidence of Dannie's gangrene identified at this time. No deep necrotizing infection identified. Electronically authenticated by: VA AVALOS Date: 07/26/2023 11:07
--- OUTSIDE RECORDS SUMMARY | 2023-07-26 11:27 | XMS_ITS | CCD ---
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 Name Role Phone DR COSTA GUEVARA Attending Unavailable DR COSTA GUEVARA Consulting Unavailable DR COSTA GUEVARA Admitting Unavailable MD Costa Guevara Primary Care Provider [phone] DO Bassem Lopez Emergency Provider [phone] DO Arturo Dolan Admit Provider DO Arturo Dolan Attending Provider MD Costa Guevara Primary Care Provider [phone] KENDRICK Mckinney Emergency Provider [phone] Edwin Mckinney Attending Unavailable Edwin Mckinney Admitting [...] by mouth every six hours Hydrocodone-Acetaminop hen ([place]ter[place]) 5-325 mg tablet Discontinued 1 TAB PO [...] LE RTon US venous duplex LE RT [facility] [place] [address] Ultrasound Report Signed Patient: Tejas Ray MR#: [id number] 0 : 1965 Acct:[id number] Age/Sex: 58 / M ADM Date: 05/28/23 Loc: ER Room: Type: [facility] ER Attending Dr: Ordering Provider: Edwin [...] Kulwinder Ma M.D.05/29/2023 9:08 AM Dictation Location: [place] [address] Tech: Kendra Chaves Transcribed By: DARLING 05/29/23907 Dictated By: Kulwinder Ma MD 05/29/23906 Signed By: 05/29/23907 Normal [facility] Activated partial thrombopla stin time (aPTT) in platelet poor plasma by coagulation aOrdered By: Edwin Mckinney on 05-28-2023 aPTT Coag (PPP) [Time] 35.7 s 25.1-36.5 [facility] Comment on above: A hematocrit value g reater than 55% may lead to inaccurate results in coagulation testing. Patients having hematocrit values >55% require a special collection tube for coagulation studies. Please contact the laboratory at [phone] for redraw instructions. Alanine aminotransferase [En zymatic activity/volume] in Serum or PlasmaOrdered By: Edwin Mckinney on 05-28-2023 ALT [Catalytic activity/Vol] 29 U/L 7-52 [facility] Albumin [Mass/volume] in Ser um or Plasma by Bromocresol green (BCG) dye binding methoOrdered By: Edwin Mckinney on 05-28-2023 Albumin BCG dye [Mass/Vol] 4.3 g/dL 3.5-5.7 [facility] Alkaline phosphatase [Enzyma tic activity/volume] in Serum or PlasmaOrdered By: Edwin Mckinney on 05-28-2023 ALP [Catalytic activity/Vol] 73 U/L 34-104 [facility] Aspartate aminotransferase [ Enzymatic activity/volume] in Serum or PlasmaOrdered By: Edwin Mckinney on 05-28-2023 AST [Catalytic activity/Vol] 18 U/L 13-39 [facility] Basic Metabolic Panelon 05-07 Anion gap [Moles/Vol] 10.2 mmol/L Normal 6.0-15.0 [facility] Comment on above: Performed By: #### P TT, HEPATIC, BMP, PT #### [facility] [address] Calcium [Mass/Vol] 9.2 mg/dL Normal 8.6-10.[address] [facility] Comment on above: Performed By: #### P TT, HEPATIC, BMP, PT #### [facility] [address] [place] [address] [place] Chloride [Moles/Vol] 102 mmol/L Normal 98-107 [facility] Comment on above: Performed By: #### P TT, HEPATIC, BMP, PT #### [facility] [address] CO2 [Moles/Vol] 30.9 mmol/L Normal 21.0-31.0 [facility] Comment on above: Performed By: #### P TT, HEPATIC, BMP, PT #### [facility] [address] [place] [address] [place] Creatinine [Mass/Vol] 1.40 mg/dL High 0.70-1.30 [facility] Comment on above: Performed By: #### P TT, HEPATIC, BMP, PT #### [facility] [address] [place] [address] [place] Creatinine Clr Calc Pharmacy 73.58 [facility] Comment on above: Result Comment: PERF ORMED BY: [place] [address] PATHOLOGIST DAY CARE AIDE ROBERTO OCAMPO M.D. Performed By: #### P TT, HEPATIC, BMP, PT #### [facility] [address] GFR/1.73 sq M.predicted MDRD (S/P/Bld) [Vol rate/Area] 57.540 mL/min/{1.73_m2} Normal [facility] Comment on above: Performed By: #### P TT, HEPATIC, BMP, PT #### [facility] [address] [place] [address] [place] Glucose [Mass/Vol] 97 mg/dL Normal 70-[address] [facility] Comment on above: Result Comment: Panacea Glucose Reference Range is dependent on time and content of last meal. Glucose of more than 200 mg/dL in a nonstressed, ambulatory subject supports the diagnosis of Diabetes Mellitus. ADA recommended reference range Performed By: #### P TT, HEPATIC, BMP, PT #### [facility] [address] Potassium [Moles/Vol] 4.1 mmol/L Normal 3.5-5.1 [facility] Comment on above: Performed By: #### P TT, HEPATIC, BMP, PT #### [facility] [address] [place] [address] [place] Sodium [Moles/Vol] 139 mmol/L Normal 136-[address] [facility] Comment on above: Performed By: #### P TT, HEPATIC, BMP, PT #### [facility] [address] [place] [address] [place] Urea nitrogen [Mass/Vol] 24 mg/dL Normal 7-25 [facility] Comment on above: Performed By: #### P TT, HEPATIC, BMP, PT #### [facility] [address] [place] [address] [place] Basophils Auto (Bld) [#/Vol] Ordered By: Edwin Mckinney on 05-28-2023 Basophils (Bld) [#/Vol] 0.1 10*3/uL 0.0-0.2 [facility] Basophils/100 WBC Auto (Bld) Ordered By: Edwin Mckinney on 05-28-2023 Basophils/100 WBC (Bld) 0.6 % . [facility] Bilirubin.direct [Mass/volum e] in Serum or PlasmaOrdered By: Edwin Mckinney on 05-28-2023 Bilirubin.direct [Mass/Vol] 0.20 mg/dL 0.03-0.18 [facility] Bilirubin.total [Mass/volume ] in Serum or PlasmaOrdered By: Edwin Mckinney on 05-28-2023 Bilirubin [Mass/Vol] 1.0 mg/dL 0.3-1.0 [facility] Calcium [Mass/volume] in Ser um or PlasmaOrdered By: Edwin Mckinney on 05-28-2023 Calcium [Mass/Vol] 9.2 mg/dL 8.6-10.[address] [facility] Carbon dioxide, total [Moles /volume] in Serum or PlasmaOrdered By: Edwin Mckinney on 05-28-2023 CO2 [Moles/Vol] 30.9 mmol/L 21.0-31.0 [facility] Chloride [Moles/volume] in S rafy or PlasmaOrdered By: Edwin Mckinney on 05-28-2023 Chloride [Moles/Vol] 102 mmol/L 98-107 [facility] Complete Blood Count Auto Di ffon 05-28-2023 Basophils (Bld) [#/Vol] 0.1 10*3/uL Normal 0.0-0.2 [facility] Comment on above: Result Comment: PERF ORMED BY: [place] [address] PATHOLOGIST DAY CARE AIDE ROBERTO OCAMPO M.D. Performed By: #### C BC #### [address] Basophils/100 WBC (Bld) 0.6 % Normal . [facility] Comment on above: Performed By: #### C BC #### [address] Eosinophils (Bld) [#/Vol] 0.3 10*3/uL Normal 0.0-0.45 [facility] Comment on above: Performed By: #### C BC #### [address] Eosinophils/100 WBC (Bld) 2.1 % Normal . [facility] Comment on above: Performed By: #### C BC #### [address] Erythrocyte distribution width (RBC) [Ratio] 14.0 % Normal 12.0-14.8 [facility] Comment on above: Performed By: #### C BC #### [address] Hematocrit (Bld) [Volume fraction] 42.1 % Normal 38.8-50.0 [facility] Comment on above: Performed By: #### C BC #### [address] Hemoglobin (Bld) [Mass/Vol] 14.1 g/dL Normal 13.0-17.0 [facility] Comment on above: Performed By: #### C BC #### [address] Lymphocytes (Bld) [#/Vol] 1.8 10*3/uL Normal 1.00-4.8 [facility] Comment on above: Performed By: #### C BC #### [address] Lymphocytes/100 WBC (Bld) 14.6 % Normal . [facility] Comment on above: Performed By: #### C BC #### [address] MCH (RBC) [Entitic mass] 32.6 pg Normal 27.5-35.2 [facility] Comment on above: Performed By: #### C BC #### [address] MCV (RBC) [Entitic vol] 97.3 fL Normal 83.5-101 [facility] Comment on above: Performed By: #### C BC #### [address] Mean Corpuscular HGB Conc 33.5 g/dL Normal 32.5-35.6 [facility] Comment on above: Performed By: #### C BC #### [address] Monocytes (Bld) [#/Vol] 1.1 10*3/uL High 0.0-0.8 [facility] Comment on above: Performed By: #### C BC #### [address] Monocytes/100 WBC (Bld) 21.69 % High 0.00-20.00 [facility] Comment on above: Result Comment: For adults in ED, MDW > 20.0 may be associated with a higher risk of sepsis during the first 12 hrs of hospital admission Performed By: #### C BC #### [address] Monocytes/100 WBC (Bld) 8.7 % Normal . [facility] Comment on above: Performed By: #### C BC #### [facility] [address] [place] [address] [place] Neutrophils (Bld) [#/Vol] 9.2 10*3/uL High 1.8-7.7 [facility] Comment on above: Performed By: #### C BC #### [facility] [address] Neutrophils/100 WBC (Bld) 74.0 % Normal . [facility] Comment on above: Performed By: #### C BC #### [facility] [address] NRBC% 0.1 /100{WBC} Normal 0-0.5 [facility] Comment on above: Performed By: #### C BC #### [address] Platelet mean volume (Bld) [Entitic vol] 9.3 fL Normal 6.6-10.1 [facility] Comment on above: Performed By: #### C BC #### [address] Platelets (Bld) [#/Vol] 296 10*3/uL Normal 150-450 [facility] Comment on above: Performed By: #### C BC #### [address] RBC (Bld) [#/Vol] 4.32 10*6/uL Normal 3.90-5.60 [facility] Comment on above: Performed By: #### C BC #### [address] WBC (Bld) [#/Vol] 12.5 10*3/uL High 4.1-10.5 [facility] Comment on above: Performed By: #### C BC #### [address] Creatinine [Mass/volume] in Serum or PlasmaOrdered By: Edwin Mckinney on 05-28-2023 Creatinine [Mass/Vol] 1.40 mg/dL 0.70-1.30 [facility] ECG 12 lead ECGon 05-28-2023 ECG 12 lead ECG [facility] [place] [address] [place] [address] Electrocardiograph Report Signed Patient: Tejas Ray MR#: [id number] 0 : 1965 Acct:[id number] Age/Sex: 58 / M ADM Date: 05/28/23 Loc: ER Room: Type: [facility] ER Attending Dr: Ordering Provider: Edwin [...] was found Confirmed by KENIA WILSON DO ([id number]) on 05/28/2023 3:02:52 PM Referred By: Electronically Signed By:KENIA WILSON DO Transcribed By: MUS Signed By Kenia Wilson DO 05/28 1503 Normal [facility] Eosinophils Auto (Bld) [#/Vo l]Ordered By: Edwin Mckinney on 05-28-2023 Eosinophils (Bld) [#/Vol] 0.3 10*3/uL 0.0-0.45 [facility] Eosinophils/100 WBC Auto (Bl d)Ordered By: Edwin Mckinney on 05-28-2023 Eosinophils/100 WBC (Bld) 2.1 % . [facility] Erythrocyte distribution wid th Auto (RBC) [Ratio]Ordered By: Edwin Mckinney on 05-28-2023 Erythrocyte distribution width (RBC) [Ratio] 14.0 % 12.0-14.8 [facility] Globulin Calc (S) [Mass/Vol] Ordered By: Edwin Mckinney on 05-28-2023 Globulin (S) [Mass/Vol] 4.2 g/dL [facility] Glucose [Mass/volume] in Ser um or PlasmaOrdered By: Edwin Mckinney on 05-28-2023 Glucose [Mass/Vol] 97 mg/dL 70-[address] [facility] Comment on above: ADA recommended refe rence rangeRandom Glucose Reference Range is dependent on time and content of last meal. Glucose of more than 200 mg/dL in a nonstressed, ambulatory subject supports the diagnosis of Diabetes Mellitus. Hematocrit Auto (Bld) [Volum e fraction]Ordered By: Edwin Mckinney on 05-28-2023 Hematocrit (Bld) [Volume fraction] 42.1 % 38.8-50.0 [facility] Hemoglobin [Mass/volume] in BloodOrdered By: Edwin Mckinney on 05-28-2023 Hemoglobin (Bld) [Mass/Vol] 14.1 g/dL 13.0-17.0 [facility] Hepatic Panelon 05-28-2023 Albumin [Mass/Vol] 4.3 g/dL Normal 3.5-5.[address] [facility] Comment on above: Performed By: #### P TT, HEPATIC, BMP, PT #### [facility] [address] Albumin/Globulin [Mass ratio] 1.0 {ratio} Normal [facility] Comment on above: Performed By: #### P TT, HEPATIC, BMP, PT #### [facility] [address] ALP [Catalytic activity/Vol] 73 U/L Normal 34-104 [facility] Comment on above: Performed By: #### P TT, HEPATIC, BMP, PT #### [facility] [address] [place] [id number] [place] ALT [Catalytic activity/Vol] 29 U/L Normal 7-52 [facility] Comment on above: Performed By: #### P TT, HEPATIC, BMP, PT #### [facility] [address] [place] [id number] [place] AST [Catalytic activity/Vol] 18 U/L Normal 13-39 [facility] Comment on above: Performed By: #### P TT, HEPATIC, BMP, PT #### [facility] [address] [place] [address] [place] Bilirubin [Mass/Vol] 1.0 mg/dL Normal 0.3-1.0 [facility] Comment on above: Performed By: #### P TT, HEPATIC, BMP, PT #### [facility] [address] Bilirubin,Indirect 0.8 mg/dL Normal [facility] Comment on above: Performed By: #### P TT, HEPATIC, BMP, PT #### [facility] [address] Bilirubin.indirect [Mass/Vol] 0.20 mg/dL High 0.03-0.18 [facility] Comment on above: Performed By: #### P TT, HEPATIC, BMP, PT #### [facility] [address] Globulin (S) [Mass/Vol] 4.2 g/dL Normal [facility] Comment on above: Performed By: #### P TT, HEPATIC, BMP, PT #### [facility] [address] Protein [Mass/Vol] 8.5 g/dL Normal 6.4-8.[address] [facility] Comment on above: Performed By: #### P TT, HEPATIC, BMP, PT #### [facility] [address] INR in Platelet poor plasma by Coagulation assayOrdered By: Edwin Mckinney on 05-28-2023 INR Coag (PPP) [Relative time] 1.4 {INR} [facility] Comment on above: INR Therapeutic Rang [...] RBC Auto (Bld) [#/Vol] 12.5 10*3/uL 4.1-10.5 [facility] Lymphocytes Auto (Bld) [#/Vo l]Ordered By: Edwin Mckinney on 05-28-2023 Lymphocytes (Bld) [#/Vol] 1.8 10*3/uL 1.00-4.8 [facility] Lymphocytes/100 WBC Auto (Bl d)Ordered By: Edwin Mckinney on 05-28-2023 Lymphocytes/100 WBC (Bld) 14.6 % . [facility] MCH Auto (RBC) [Entitic mass ]Ordered By: Edwin Mckinney on 05-28-2023 MCH (RBC) [Entitic mass] 32.6 pg 27.5-35.2 [facility] MCHC Auto (RBC) [Mass/Vol]Or dered By: Edwin Mckinney on 05-28-2023 MCHC (RBC) [Mass/Vol] 33.5 g/dL 32.5-35.6 [facility] MCV Auto (RBC) [Entitic vol] Ordered By: Edwin Mckinney on 05-28-2023 MCV (RBC) [Entitic vol] 97.3 fL 83.5-101 [facility] Monocyte distribution width [Entitic volume] in Blood by AutomatedOrdered By: dEwin Mckinney on 05-28-2023 Monocyte distribution width Auto (Bld) [Entitic vol] 21.69 % 0.00-20.00 [facility] Comment on above: For adults in ED, MD W > 20.0 may be associated with a higher risk of sepsis during the first 12 hrs of hospital admission Monocytes Auto (Bld) [#/Vol] Ordered By: Edwin Mckinney on 05-28-2023 Monocytes (Bld) [#/Vol] 1.1 10*3/uL 0.0-0.8 [facility] Monocytes/100 WBC Auto (Bld) Ordered By: Edwin Mckinney on 05-28-2023 Monocytes/100 WBC (Bld) 8.7 % . [facility] Neutrophils Auto (Bld) [#/Vo l]Ordered By: Edwin Mckinney on 05-28-2023 Neutrophils (Bld) [#/Vol] 9.2 10*3/uL 1.8-7.7 [facility] Neutrophils/100 WBC Auto (Bl d)Ordered By: Edwin Mckinney on 05-28-2023 Neutrophils/100 WBC (Bld) 74.0 % . [facility] No Panel InformationOrdered By: Edwin Mckinney on 05-28-2023 Estimated GFR (CKD-EPI) 57.540 mL/Min [facility] Pharmacy Creatinine Clearance (Chem 73.58 [facility] Nucleated erythrocytes [Pres ence] in Blood by Automated countOrdered By: Edwin Mckinney on 05-28-2023 Nucleated RBC Auto Ql (Bld) 0.1 /100{WBC} 0-0.5 [facility] Partial Thromboplastin Timeo n 05-28-2023 aPTT Coag (Bld) [Time] 35.7 s Normal 25.1-36.5 [facility] Comment on above: Result Comment: A he matocrit value greater than 55% may lead to inaccurate results in coagulation testing. Patients having hematocrit values >55% require a special collection tube for coagulation studies. Please contact the laboratory at [phone] for redraw instructions. PERFORMED BY: [place] [address] PATHOLOGIST DAY CARE AIDE ROBERTO OCAMPO M.D. Performed By: #### P TT, HEPATIC, BMP, PT #### [address] Platelet mean volume Auto (B ld) [Entitic vol]Ordered By: Edwin Mckinney on 05-28-2023 Platelet mean volume (Bld) [Entitic vol] 9.3 fL 6.6-10.1 [facility] Platelets Auto (Bld) [#/Vol] Ordered By: Edwin Mckinney on 05-28-2023 Platelets (Bld) [#/Vol] 296 10*3/uL 150-450 [facility] Potassium [Moles/volume] in Serum or PlasmaOrdered By: Edwin Mckinney on 05-28-2023 Potassium [Moles/Vol] 4.1 mmol/L 3.5-5.1 [facility] Protein [Mass/volume] in Ser um or PlasmaOrdered By: Edwin Mckinney on 05-28-2023 Protein [Mass/Vol] 8.5 g/dL 6.4-8.[address] [facility] Prothrombin Time INRon 05-28 INR Coag (PPP) [Relative time] 1.4 {INR} Normal [facility] Comment on above: Result Comment: INR [...] #### P TT, HEPATIC, BMP, PT #### [facility] [address] [place] [id number] [facility] PT Coag (PPP) [Time] 16.2 s High 9.0-12.9 [facility] Comment on above: Result Comment: A he matocrit value greater than 55% may lead to inaccurate results in coagulation testing. Patients having hematocrit values >55% require a special collection tube for coagulation studies. Please contact the laboratory at [phone] for redraw instructions. Performed By: #### P TT, HEPATIC, BMP, PT #### [facility] [address] [place] [id number] [facility] Prothrombin time (PT)Ordered By: Ewdin Mckinney on 05-28-2023 PT Coag (PPP) [Time] 16.2 s 9.0-12.9 [facility] Comment on above: A hematocrit value g reater than 55% may lead to inaccurate results in coagulation testing. Patients having hematocrit values >55% require a special collection tube for coagulation studies. Please contact the laboratory at [phone] for redraw instructions. RBC Auto (Bld) [#/Vol]Ordere d By: Edwin Mckinney on 05-28-2023 RBC (Bld) [#/Vol] 4.32 10*6/uL 3.90-5.60 [facility] Serum or plasma albumin/glob ulin mass ratioOrdered By: Edwin Mckinney on 05-28-2023 Albumin/Globulin [Mass ratio] 1.0 {ratio} [facility] Serum or plasma anion gap de terminationOrdered By: Edwin Mckinney on 05-28-2023 Anion gap [Moles/Vol] 10.2 mmol/L 6.0-15.0 [facility] Serum or plasma non-glucuron idated bilirubin measurement (mass/volume)Ordered By: Edwin Mckinney on 05-28-2023 Bilirubin.indirect [Mass/Vol] 0.8 mg/dL [facility] Sodium [Moles/volume] in Ser um or PlasmaOrdered By: Edwin Mckinney on 05-28-2023 Sodium [Moles/Vol] 139 mmol/L 136-[address] [facility] Urea nitrogen [Mass/volume] in Serum or PlasmaOrdered By: Edwin Mckinney on 05-28-2023 Urea nitrogen [Mass/Vol] 24 mg/dL 7-25 [facility] WBC Auto (Bld) [#/Vol]Ordere d By: Edwin Mckinney on 05-28-2023 WBC (Bld) [#/Vol] 12.5 10*3/uL 4.1-10.5 [facility] XR chest 1V portableon 05-28 XR chest 1V portable [facility] [address] [place] [address] [place] [address] XRay Report Signed Patient: Tejas Ray MR#: [id number] 0 : 1965 Acct:[id number] Age/Sex: 58 / M ADM Date: 05/28/23 Loc: ER Room: Type: [facility] ER Attending Dr: Copies to: Edwin Mckinney [...] Miller DO 05/28/231431 Signed By: 05/28/23 143 [facility] XR foot RT min 3V*on 024 XR foot RT min 3V* [facility] [address] [place] [address] [place] [address] XRay Report Signed Patient: Tejas Ray MR#: [id number] 0 : 1965 Acct:[id number] Age/Sex: 58 / M ADM Date: 05/28/23 Loc: ER Room: Type: [facility] ER Attending Dr: Copies to: Edwin Mckinney [...] Miller DO 05/28/231452 Signed By: 05/28/23 145 [facility] Basic Metabolic Panelon 05-07 Anion gap [Moles/Vol] 10.9 mmol/L Normal 6.0-15.0 [facility] Comment on above: Performed By: #### B MP, CBC #### [place] [address] [place] Calcium [Mass/Vol] 8.7 mg/dL Normal 8.6-10.[address] [facility] Comment on above: Performed By: #### B MP, CBC #### [facility] [address] Chloride [Moles/Vol] 106 mmol/L Normal 98-107 [facility] Comment on above: Performed By: #### B MP, CBC #### [facility] [address] CO2 [Moles/Vol] 25.9 mmol/L Normal 21.0-31.0 [facility] Comment on above: Performed By: #### B MP, CBC #### [facility] [address] Creatinine [Mass/Vol] 1.40 mg/dL High 0.70-1.30 [facility] Comment on above: Performed By: #### B MP, CBC #### [facility] [address] [place] [address] [place] Creatinine Clr Calc Pharmacy 76.19 Normal [facility] Comment on above: Result Comment: PERF ORMED BY: [place] [address] PATHOLOGIST DAY CARE AIDE ROBERTO OCAMPO M.D. Performed By: #### B MP, CBC #### [address] GFR/1.73 sq M.predicted MDRD (S/P/Bld) [Vol rate/Area] 57.540 mL/min/{1.73_m2} Normal [facility] Comment on above: Performed By: #### B MP, CBC #### [facility] [address] [place] [address] [place] Glucose [Mass/Vol] 95 mg/dL Normal 70-[address] [facility] Comment on above: Result Comment: [facility]acea Glucose Reference Range is dependent on time and content of last meal. Glucose of more than 200 mg/dL in a nonstressed, ambulatory subject supports the diagnosis of Diabetes Mellitus. ADA recommended reference range Performed By: #### B MP, CBC #### [address] Potassium [Moles/Vol] 3.8 mmol/L Normal 3.5-5.1 [facility] Comment on above: Performed By: #### B MP, CBC #### [address] Sodium [Moles/Vol] 139 mmol/L Normal 136-[address] [facility] Comment on above: Performed By: #### B MP, CBC #### [address] Urea nitrogen [Mass/Vol] 32 mg/dL High 7-25 [facility] Comment on above: Performed By: #### B MP, CBC #### [address] Complete Blood Count Auto Di ffon 05-27-2023 Basophils (Bld) [#/Vol] 0.1 10*3/uL Normal 0.0-0.2 [facility] Comment on above: Result Comment: PERF ORMED BY: [place] [address] PATHOLOGIST DAY CARE AIDE ROBERTO OCAMPO M.D. Performed By: #### B MP, CBC #### [address] Basophils/100 WBC (Bld) 0.8 % Normal . [facility] Comment on above: Performed By: #### B MP, CBC #### [place] [address] [place] Eosinophils (Bld) [#/Vol] 0.1 10*3/uL Normal 0.0-0.45 [facility] Comment on above: Performed By: #### B MP, CBC #### [address] Eosinophils/100 WBC (Bld) 0.8 % Normal . [facility] Comment on above: Performed By: #### B MP, CBC #### [address] Erythrocyte distribution width (RBC) [Ratio] 14.3 % Normal 12.0-14.8 [facility] Comment on above: Performed By: #### B MP, CBC #### [address] Hematocrit (Bld) [Volume fraction] 39.1 % Normal 38.8-50.0 [facility] Comment on above: Performed By: #### B MP, CBC #### [address] Hemoglobin (Bld) [Mass/Vol] 13.1 g/dL Normal 13.0-17.0 [facility] Comment on above: Performed By: #### B MP, CBC #### [address] Lymphocytes (Bld) [#/Vol] 3.2 10*3/uL Normal 1.00-4.8 [facility] Comment on above: Performed By: #### B MP, CBC #### [address] Lymphocytes/100 WBC (Bld) 27.1 % Normal . [facility] Comment on above: Performed By: #### B MP, CBC #### [address] MCH (RBC) [Entitic mass] 32.8 pg Normal 27.5-35.2 [facility] Comment on above: Performed By: #### B MP, CBC #### [address] MCV (RBC) [Entitic vol] 97.9 fL Normal 83.5-101 [facility] Comment on above: Performed By: #### B MP, CBC #### [address] Mean Corpuscular HGB Conc 33.5 g/dL Normal 32.5-35.6 [facility] Comment on above: Performed By: #### B MP, CBC #### [address] Monocytes (Bld) [#/Vol] 1.0 10*3/uL High 0.0-0.8 [facility] Comment on above: Performed By: #### B MP, CBC #### [place] [address] [place] Monocytes/100 WBC (Bld) 8.8 % Normal . [facility] Comment on above: Performed By: #### B MP, CBC #### [address] Neutrophils (Bld) [#/Vol] 7.3 10*3/uL Normal 1.8-7.7 [facility] Comment on above: Performed By: #### B MP, CBC #### [address] Neutrophils/100 WBC (Bld) 62.5 % Normal . [facility] Comment on above: Performed By: #### B MP, CBC #### [address] NRBC% 0.1 /100{WBC} Normal 0-0.5 [facility] Comment on above: Performed By: #### B MP, CBC #### [address] Platelet mean volume (Bld) [Entitic vol] 9.2 fL Normal 6.6-10.1 [facility] Comment on above: Performed By: #### B MP, CBC #### [place] [address] [place] Platelets (Bld) [#/Vol] 235 10*3/uL Normal 150-450 [facility] Comment on above: Performed By: #### B MP, CBC #### [place] [address] [place] RBC (Bld) [#/Vol] 4.00 10*6/uL Normal 3.90-5.60 [facility] Comment on above: Performed By: #### B MP, CBC #### [place] [address] [place] WBC (Bld) [#/Vol] 11.7 10*3/uL High 4.1-10.5 [facility] Comment on above: Performed By: #### B MP, CBC #### [facility] [address] Basic Metabolic Panelon - Anion gap [Moles/Vol] 11.7 mmol/L Normal 6.0-15.0 [facility] Comment on above: Performed By: #### P TT, HEPATIC, BMP, PT #### [facility] [address] Calcium [Mass/Vol] 8.8 mg/dL Normal 8.6-10.[address] [facility] Comment on above: Performed By: #### P TT, HEPATIC, BMP, PT #### [facility] [address] Chloride [Moles/Vol] 108 mmol/L High 98-107 [facility] Comment on above: Performed By: #### P TT, HEPATIC, BMP, PT #### [facility] [address] CO2 [Moles/Vol] 24.4 mmol/L Normal 21.0-31.0 [facility] Comment on above: Performed By: #### P TT, HEPATIC, BMP, PT #### [facility] [address] Creatinine [Mass/Vol] 1.34 mg/dL High 0.70-1.30 [facility] Comment on above: Performed By: #### P TT, HEPATIC, BMP, PT #### [facility] [address] Creatinine Clr Calc Pharmacy 81.59 Normal [facility] Comment on above: Result Comment: PERF ORMED BY: [place] [address] PATHOLOGIST DAY CARE AIDE ROBERTO OCAMPO M.D. Performed By: #### P TT, HEPATIC, BMP, PT #### [address] GFR/1.73 sq M.predicted MDRD (S/P/Bld) [Vol rate/Area] mL/min/{1.73_m2} [facility] Comment on above: Performed By: #### P TT, HEPATIC, BMP, PT #### [address] Glucose [Mass/Vol] 115 mg/dL High 70-[address] [facility] Comment on above: Result Comment: Panacea Glucose Reference Range is dependent on time and content of last meal. Glucose of more than 200 mg/dL in a nonstressed, ambulatory subject supports the diagnosis of Diabetes Mellitus. ADA recommended reference range Performed By: #### P TT, HEPATIC, BMP, PT #### [address] Potassium [Moles/Vol] 4.1 mmol/L Normal 3.5-5.1 [facility] Comment on above: Performed By: #### P TT, HEPATIC, BMP, PT #### [address] Sodium [Moles/Vol] 140 mmol/L Normal 136-[address] [facility] Comment on above: Performed By: #### P TT, HEPATIC, BMP, PT #### [address] Urea nitrogen [Mass/Vol] 33 mg/dL High 7-25 [facility] Comment on above: Performed By: #### P TT, HEPATIC, BMP, PT #### [address] Blood Cultureon 05-26-2023 Bacteria identified Cx Nom (Bld) NO GROWTH 5 DAYS PERFORMED BY: [place] [address] PATHOLOGIST DAY CARE AIDE ROBERTO OCAMPO M.D. [facility] Comment on above: Performed By: #### C UBLD #### [address] Complete Blood Count Auto Di ffon 05-26-2023 Basophils (Bld) [#/Vol] 0.0 10*3/uL Normal 0.0-0.2 [facility] Comment on above: Result Comment: PERF ORMED BY: [place] [address] PATHOLOGIST DAY CARE AIDE ROBERTO OCAMPO M.D. Performed By: #### P TT, HEPATIC, BMP, PT #### [address] Basophils/100 WBC (Bld) 0.1 % Normal . [facility] Comment on above: Performed By: #### P TT, HEPATIC, BMP, PT #### [address] Eosinophils (Bld) [#/Vol] 0.0 10*3/uL Normal 0.0-0.45 [facility] Comment on above: Performed By: #### P TT, HEPATIC, BMP, PT #### [address] Eosinophils/100 WBC (Bld) 0.0 % Normal . [facility] Comment on above: Performed By: #### P TT, HEPATIC, BMP, PT #### [facility] [address] [place] [address] Erythrocyte distribution width (RBC) [Ratio] 14.3 % Normal 12.0-14.8 [facility] Comment on above: Performed By: #### P TT, HEPATIC, BMP, PT #### [facility] [address] [place] [address] Hematocrit (Bld) [Volume fraction] 36.9 % Low 38.8-50.0 [facility] Comment on above: Performed By: #### P TT, HEPATIC, BMP, PT #### [facility] [address] [place] [address] Hemoglobin (Bld) [Mass/Vol] 12.1 g/dL Low 13.0-17.0 [facility] Comment on above: Performed By: #### P TT, HEPATIC, BMP, PT #### [facility] [address] [place] [address] [place] Lymphocytes (Bld) [#/Vol] 2.0 10*3/uL Normal 1.00-4.8 [facility] Comment on above: Performed By: #### P TT, HEPATIC, BMP, PT #### [address] Lymphocytes/100 WBC (Bld) 11.4 % Normal . [facility] Comment on above: Performed By: #### P TT, HEPATIC, BMP, PT #### [address] MCH (RBC) [Entitic mass] 32.2 pg Normal 27.5-35.2 [facility] Comment on above: Performed By: #### P TT, HEPATIC, BMP, PT #### [address] MCV (RBC) [Entitic vol] 98.1 fL Normal 83.5-101 [facility] Comment on above: Performed By: #### P TT, HEPATIC, BMP, PT #### [address] Mean Corpuscular HGB Conc 32.9 g/dL Normal 32.5-35.6 [facility] Comment on above: Performed By: #### P TT, HEPATIC, BMP, PT #### [address] Monocytes (Bld) [#/Vol] 1.4 10*3/uL High 0.0-0.8 [facility] Comment on above: Performed By: #### P TT, HEPATIC, BMP, PT #### [place] [address] [place] Monocytes/100 WBC (Bld) 7.9 % Normal . [facility] Comment on above: Performed By: #### P TT, HEPATIC, BMP, PT #### [address] Neutrophils (Bld) [#/Vol] 14.0 10*3/uL High 1.8-7.7 [facility] Comment on above: Performed By: #### P TT, HEPATIC, BMP, PT #### [address] Neutrophils/100 WBC (Bld) 80.6 % Normal . [facility] Comment on above: Performed By: #### P TT, HEPATIC, BMP, PT #### [address] NRBC% 0.1 /100{WBC} Normal 0-0.5 [facility] Comment on above: Performed By: #### P TT, HEPATIC, BMP, PT #### [address] Platelet mean volume (Bld) [Entitic vol] 9.4 fL Normal 6.6-10.1 [facility] Comment on above: Performed By: #### P TT, HEPATIC, BMP, PT #### [address] Platelets (Bld) [#/Vol] 233 10*3/uL Normal 150-450 [facility] Comment on above: Performed By: #### P TT, HEPATIC, BMP, PT #### [address] RBC (Bld) [#/Vol] 3.77 10*6/uL Low 3.90-5.60 [facility] Comment on above: Performed By: #### P TT, HEPATIC, BMP, PT #### [address] WBC (Bld) [#/Vol] 17.3 10*3/uL High 4.1-10.5 [facility] Comment on above: Performed By: #### P TT, HEPATIC, BMP, PT #### [address] Basic Metabolic Panelon 05-07 0 Anion gap [Moles/Vol] 12.1 mmol/L Normal 6.0-15.0 [facility] Comment on above: Performed By: #### B MP, CBC #### [address] Calcium [Mass/Vol] 8.6 mg/dL Normal 8.6-10.[address] [facility] Comment on above: Performed By: #### B MP, CBC #### [facility] [address] Chloride [Moles/Vol] 107 mmol/L Normal 98-107 [facility] Comment on above: Performed By: #### B MP, CBC #### [facility] [address] [place] [address] CO2 [Moles/Vol] 21.6 mmol/L Normal 21.0-31.0 [facility] Comment on above: Performed By: #### B MP, CBC #### [address] Creatinine [Mass/Vol] 1.29 mg/dL Normal 0.70-1.30 [facility] Comment on above: Performed By: #### B MP, CBC #### [address] Creatinine Clr Calc Pharmacy 84.75 [facility] Comment on above: Performed By: #### B MP, CBC #### [place] [address] [place] GFR/1.73 sq M.predicted MDRD (S/P/Bld) [Vol rate/Area] mL/min/{1.73_m2} [facility] Comment on above: Performed By: #### B MP, CBC #### [address] Glucose [Mass/Vol] 194 mg/dL High 70-[address] [facility] Comment on above: Result Comment: Panacea Glucose Reference Range is dependent on time and content of last meal. Glucose of more than 200 mg/dL in a nonstressed, ambulatory subject supports the diagnosis of Diabetes Mellitus. ADA recommended reference range Performed By: #### B MP, CBC #### [address] Potassium [Moles/Vol] 3.7 mmol/L Normal 3.5-5.1 [facility] Comment on above: Performed By: #### B MP, CBC #### [facility] [address] Sodium [Moles/Vol] 137 mmol/L Normal 136-[address] [facility] Comment on above: Performed By: #### B MP, CBC #### [facility] [address] Urea nitrogen [Mass/Vol] 27 mg/dL High 7- [facility] Comment on above: Performed By: #### B MP, CBC #### [address] Complete Blood Count Auto Di ffon 05-25-2023 Basophils (Bld) [#/Vol] 0.0 10*3/uL Normal 0.0-0.2 [facility] Comment on above: Result Comment: PERF ORMED BY: [place] [address] PATHOLOGIST DAY CARE AIDE ROBERTO OCAMPO M.D. Performed By: #### B MP, CBC #### [address] Basophils/100 WBC (Bld) 0.2 % Normal . [facility] Comment on above: Performed By: #### B MP, CBC #### [address] Eosinophils (Bld) [#/Vol] 0.0 10*3/uL Normal 0.0-0.45 [facility] Comment on above: Performed By: #### B MP, CBC #### [address] Eosinophils/100 WBC (Bld) 0.0 % Normal . [facility] Comment on above: Performed By: #### B MP, CBC #### [address] Erythrocyte distribution width (RBC) [Ratio] 14.3 % Normal 12.0-14.8 [facility] Comment on above: Performed By: #### B MP, CBC #### [address] [place] [address] [place] Hematocrit (Bld) [Volume fraction] 37.6 % Low 38.8-50.0 [facility] Comment on above: Performed By: #### B MP, CBC #### [facility] [address] Hemoglobin (Bld) [Mass/Vol] 12.7 g/dL Low 13.0-17.0 [facility] Comment on above: Performed By: #### B MP, CBC #### [facility] [address] Lymphocytes (Bld) [#/Vol] 0.9 10*3/uL Low 1.00-4.8 [facility] Comment on above: Performed By: #### B MP, CBC #### [address] Lymphocytes/100 WBC (Bld) 5.4 % Normal . [facility] Comment on above: Performed By: #### B MP, CBC #### [address] MCH (RBC) [Entitic mass] 33.1 pg Normal 27.5-35.2 [facility] Comment on above: Performed By: #### B MP, CBC #### [address] MCV (RBC) [Entitic vol] 97.6 fL Normal 83.5-101 [facility] Comment on above: Performed By: #### B MP, CBC #### [address] Mean Corpuscular HGB Conc 33.9 g/dL Normal 32.5-35.6 [facility] Comment on above: Performed By: #### B MP, CBC #### [address] Monocytes (Bld) [#/Vol] 0.6 10*3/uL Normal 0.0-0.8 [facility] Comment on above: Performed By: #### B MP, CBC #### [facility] [address] Monocytes/100 WBC (Bld) 3.6 % Normal . [facility] Comment on above: Performed By: #### B MP, CBC #### [facility] [address] Neutrophils (Bld) [#/Vol] 15.9 10*3/uL High 1.8-7.7 [facility] Comment on above: Performed By: #### B MP, CBC #### [facility] [address] Neutrophils/100 WBC (Bld) 90.8 % Normal . [facility] Comment on above: Performed By: #### B MP, CBC #### [address] NRBC% 0.0 /100{WBC} Normal 0-0.5 [facility] Comment on above: Performed By: #### B MP, CBC #### [address] Platelet mean volume (Bld) [Entitic vol] 9.3 fL Normal 6.6-10.1 [facility] Comment on above: Performed By: #### B MP, CBC #### [address] Platelets (Bld) [#/Vol] 207 10*3/uL Normal 150-450 [facility] Comment on above: Performed By: #### B MP, CBC #### [address] RBC (Bld) [#/Vol] 3.85 10*6/uL Low 3.90-5.60 [facility] Comment on above: Performed By: #### B MP, CBC #### [address] WBC (Bld) [#/Vol] 17.5 10*3/uL High 4.1-10.5 [facility] Comment on above: Performed By: #### B MP, CBC #### [address] [place] [address] [place] Creatine Kinaseon 05-25-2023 CK [Catalytic activity/Vol] 198 U/L Normal 30-223 [facility] Comment on above: Performed By: #### B MP, CBC #### [facility] [address] [place], [place] [id number] [place] ECG 12 lead ECGon 05-25-2023 ECG 12 lead ECG [facility] [place] [address] Electrocardiograph Report Signed Patient: Tejas Ray MR#: [id number] 0 : 1965 Acct:[id number] Age/Sex: 58 / M ADM Date: 05/24/23 Loc: Room: [address] [place] [address] Type: ADM IN Attending Dr: Arturo Dolan [...] Significant changes have occurred Confirmed by LINH APZ MD ([id number]) on 05/25/2023 2:40:25 PM Referred By: Electronically Signed By:LINH PAZ MD Transcribed By: MUS Signed By Linh Paz MD 0 05/25/23 1440 Normal [facility] ECH echo transthoracicon ECH echo transthoracic [facility] Main [place] [id number] Echocardiogram Signed Patient: Tejas Ray MR#: [id number] 0 : 1965 Acct:[id number] Age/Sex: 58 / M ADM Date: 05/24/23 Loc: Room: [address] [place] [address] Type: ADM IN Attending Dr: Arturo Dolan [...] By: Linh Paz MD 05/25/23 1150 Normal [facility] Magnesiumon 05-25-2023 Magnesium [Mass/Vol] 1.9 mg/dL Normal 1.9-2.7 [facility] Comment on above: Result Comment: PERF ORMED BY: [place] [address] PATHOLOGIST DAY CARE AIDE ROBERTO OCAMPO M.D. Performed By: #### B PATRICIA, CBC #### [facility] [address] [place], [place] [id number] [place] Troponin I High Sensitivityo n 05-25-2023 Troponin I High Sensitivity 7.0 pg/mL Normal 0.0-20.0 [facility] Comment on above: Result Comment: PERF ORMED BY: [facility] [address] [place] [address] PATHOLOGIST DAY CARE AIDE ROBERTO OCAMPO M.D. Performed By: #### B MP, CBC #### [facility] [address] [place], [place] [address] [place] A1C with Estimated Average G luon 05-24-2023 Glucose [Mass/Vol] 131 mg/dL Normal [facility] Comment on above: Result Comment: PERF ORMED BY: [place] [address] PATHOLOGIST DAY CARE AIDE ROBERTO OCAMPO M.D. Performed By: #### P TT, HEPATIC, BMP, PT #### [facility] [address] [place] [address] HbA1c (Bld) [Mass fraction] 6.2 % High 4.3-5.6 [facility] Comment on above: Result Comment: Incr eased risk for diabetes: 5.7 - 6.4 diabetes: >6.4 glycemic control for adults with diabetes: <7.0 Performed By: #### P TT, HEPATIC, BMP, PT #### [facility] [address] [place] [address] Activated partial thrombopla stin time (aPTT) in platelet poor plasma by coagulation aOrdered By: Ria Talamantes on 05-24-2023 aPTT Coag (PPP) [Time] 27.5 s 25.1-36.5 [facility] Comment on above: A hematocrit value g reater than 55% may lead to inaccurate results in coagulation testing. Patients having hematocrit values >55% require a special collection tube for coagulation studies. Please contact the laboratory at [phone] for redraw instructions. Aerobic Cultureon 05-24-2023 Aerobic Culture Result Tab Codes Moderate Normal Respiratory [place] 2 Days Gram Stain Result 1+ Gram Positive Cocci in Clusters 1+ Gram Negative Bacilli 1+ White Blood Cells 1+ Epithelial Cells * This is a corrected result. * A prior result that was reported as final has been changed. PERFORMED BY: [address] [address] PATHOLOGIST DAY CARE AIDE ROBERTO OCAMPO M.D. [facility] Comment on above: Performed By: #### P TT, HEPATIC, BMP, PT #### [place] [id number] [facility] Automated erythrocytes count in urine sediment (number/area)Ordered By: Ria Talamantes on 05-24-2023 RBC Auto (Urine sed) [#/Area] None seen [HPF] 0-4 [facility] Automated leukocytes count i n urine sediment (number/area)Ordered By: Ria [place] on 05-24-2023 WBC Auto (Urine sed) [#/Area] None seen [HPF] 0-4 [facility] B-Type Natriuretic Peptideon 05-24-2023 Natriuretic peptide B (Bld) [Mass/Vol] 221.0 pg/mL High 5-100 [facility] Comment on above: Result Comment: PERF ORMED BY: [place] [address] PATHOLOGIST DAY CARE AIDE ROBEROT OCAMPO M.D. Performed By: #### B MP, CBC #### [facility] [address] Basic Metabolic Panelon 05-06 Anion gap [Moles/Vol] 13.0 mmol/L Normal 6.0-15.0 [facility] Comment on above: Performed By: #### B MP, CBC #### [facility] [address] [place] [address] [place] Calcium [Mass/Vol] 9.2 mg/dL Normal 8.6-10.[address] [facility] Comment on above: Performed By: #### B MP, CBC #### [facility] [address] [place] [address] [place] Chloride [Moles/Vol] 105 mmol/L Normal 98-107 [facility] Comment on above: Performed By: #### B MP, CBC #### [facility] [address] [place] [address] [place] CO2 [Moles/Vol] 22.1 mmol/L Normal 21.0-31.0 [facility] Comment on above: Performed By: #### B MP, CBC #### [facility] [address] [place] [address] [place] Creatinine [Mass/Vol] 1.38 mg/dL High 0.70-1.30 [facility] Comment on above: Performed By: #### B MP, CBC #### [facility] [address] [place] [address] [place] Creatinine Clr Calc Pharmacy 79.52 Normal [facility] Comment on above: Result Comment: PERF ORMED BY: [place] [address] PATHOLOGIST DAY CARE AIDE ROBERTO OCAMPO M.D. Performed By: #### B MP, CBC #### [facility] [address] [place] [address] [place] GFR/1.73 sq M.predicted MDRD (S/P/Bld) [Vol rate/Area] 58.542 mL/min/{1.73_m2} Normal [facility] Comment on above: Performed By: #### B MP, CBC #### [address] Glucose [Mass/Vol] 110 mg/dL High 70-[address] [facility] Comment on above: Result Comment: Panacea Glucose Reference Range is dependent on time and content of last meal. Glucose of more than 200 mg/dL in a nonstressed, ambulatory subject supports the diagnosis of Diabetes Mellitus. ADA recommended reference range Performed By: #### B MP, CBC #### [place] [address] [place] Potassium [Moles/Vol] 4.1 mmol/L Normal 3.5-5.1 [facility] Comment on above: Performed By: #### B MP, CBC #### [place] [address] [place] Sodium [Moles/Vol] 136 mmol/L Normal 136-[address] [facility] Comment on above: Performed By: #### B MP, CBC #### [facility] [address] [place] [address] [place] Urea nitrogen [Mass/Vol] 23 mg/dL Normal 7-25 [facility] Comment on above: Performed By: #### B MP, CBC #### [facility] [address] [place] [address] [place] Basophils Auto (Bld) [#/Vol] Ordered By: Ria Talamantes on 05-24-2023 Basophils (Bld) [#/Vol] 0.1 10*3/uL 0.0-0.2 [facility] Basophils/100 WBC Auto (Bld) Ordered By: Ria Sotorosemarie on 05-24-2023 Basophils/100 WBC (Bld) 0.5 % . [facility] Bilirubin Test strip Ql (U)O rdered By: Ria Sotorosemarie on 05-24-2023 Bilirubin Ql (U) Negative Negative [facility] Blood Cultureon 05-24-2023 Bacteria identified Cx Nom (Bld) NO GROWTH 5 DAYS PERFORMED BY: [place] [address] PATHOLOGIST DAY CARE AIDE ROBERTO OCAMPO M.D. Normal [facility] Comment on above: Performed By: #### P TT, HEPATIC, BMP, PT #### [address] Bacteria identified Cx Nom (Bld) Gram [...] Not Applicable Anabelle krusei DNA [Presence] by PIRTESH with non-probe detection in Positive blood culture [...] culture Not detected Group A (Streptococcus pyogenes) [id number] Not detected Group B Strep (Streptococcus agalactiae) Not detected Streptococcus sp DNA [Presence] by PRITESH with non-probe [...] called at (more content not included)... Normal [facility] Comment on above: Performed By: #### P TT, HEPATIC, BMP, PT #### [address] COVID CepheidOrdered By: Greg Talamantes on 05-24-2023 SARS-CoV-2 (COVID-19) Ab IA Ql Negative Negative [facility] Comment on above: This is a duplicate Cepheid Xpert Xpress CoV-2/Flu/RSV Plus RNA by RT-PCR result to be used for statistical tracking purpose only. SARS-CoV-2 (COVID-19) RNA PRITESH+probe Ql (Unsp spec) [facility] COVID-19 / Flu A/B / RSV [...] or Cepheid Disclaimer revoked sooner. PERFORMED BY: [place] [address] PATHOLOGIST DAY CARE AIDE ROBERTO OCAMPO M.D. [facility] Comment on above: Performed By: #### P TT, HEPATIC, BMP, PT #### [address] angio chest PE protocolon 05-24-2023 CT angio chest PE protocol [facility] Main [place] [address] [place] [address] CT Scan Report Signed Patient: Tejas Ray MR#: [id number] 0 : 1965 Acct:[id number] Age/Sex: 58 / M ADM Date: 05/24/23 Loc: ER Room: Type: [facility] ER Attending Dr: Copies to: Ria Talamantes [...] Kulwinder Miller M.D.05/24/2023 5:17 PM Dictation Location: [place] [address] Transcribed By: [facility] 05/24/231716 Dictated By: Kulwinder Miller DO 05/24/231711 Signed By: 05/24/231716 [facility] Calcium [Mass/volume] in Ser um or PlasmaOrdered By: Ria Talamantes on 05-24-2023 Calcium [Mass/Vol] 9.2 mg/dL 8.6-10.[address] [facility] Carbon dioxide, total [Moles /volume] in Serum or PlasmaOrdered By: Ria Talamantes on 05-24-2023 CO2 [Moles/Vol] 22.1 mmol/L 21.0-31.0 [facility] Cepheid COVID PCR Negativeon 05-24-2023 SARS-CoV-2 (COVID-19) RNA PRITESH+probe Ql (Unsp spec) Negative Normal Negative [facility] Comment on above: Result Comment: This is a duplicate Cepheid Xpert Xpress CoV-2/Flu/RSV Plus RNA by RT-PCR result to be used for statistical tracking purpose only. PERFORMED BY: [place] [address] PATHOLOGIST DAY CARE AIDE ROBERTO OCAMPO M.D. Performed By: #### P TT, HEPATIC, BMP, PT #### [place] [address] [place] Chloride [Moles/volume] in S rafy or PlasmaOrdered By: Ria Talamantes on 05-24-2023 Chloride [Moles/Vol] 105 mmol/L 98-107 [facility] Color Auto (U)Ordered By: Jimenez Talamantes on 05-24-2023 Color (U) Yellow Yellow [facility] Complete Blood Count Auto Di ffon 05-24-2023 Basophils (Bld) [#/Vol] 0.1 10*3/uL Normal 0.0-0.2 [facility] Comment on above: Result Comment: PERF ORMED BY: [place] [address] PATHOLOGIST DAY CARE AIDE ROBERTO OCAMPO M.D. Performed By: #### B MP, CBC #### [place] [address] [place] Basophils/100 WBC (Bld) 0.5 % Normal . [facility] Comment on above: Performed By: #### B MP, CBC #### [place] [address] [place] Eosinophils (Bld) [#/Vol] 0.1 10*3/uL Normal 0.0-0.45 [facility] Comment on above: Performed By: #### B MP, CBC #### [place] [address] [place] Eosinophils/100 WBC (Bld) 0.9 % Normal . [facility] Comment on above: Performed By: #### B MP, CBC #### [address] Erythrocyte distribution width (RBC) [Ratio] 13.9 % Normal 12.0-14.8 [facility] Comment on above: Performed By: #### B MP, CBC #### [address] Hematocrit (Bld) [Volume fraction] 43.2 % Normal 38.8-50.0 [facility] Comment on above: Performed By: #### B MP, CBC #### [address] Hemoglobin (Bld) [Mass/Vol] 14.6 g/dL Normal 13.0-17.0 [facility] Comment on above: Performed By: #### B MP, CBC #### [address] Lymphocytes (Bld) [#/Vol] 1.0 10*3/uL Normal 1.00-4.8 [facility] Comment on above: Performed By: #### B MP, CBC #### [address] Lymphocytes/100 WBC (Bld) 6.3 % Normal . [facility] Comment on above: Performed By: #### B MP, CBC #### [address] MCH (RBC) [Entitic mass] 32.7 pg Normal 27.5-35.2 [facility] Comment on above: Performed By: #### B MP, CBC #### [address] MCV (RBC) [Entitic vol] 96.7 fL Normal 83.5-101 [facility] Comment on above: Performed By: #### B MP, CBC #### [address] Mean Corpuscular HGB Conc 33.8 g/dL Normal 32.5-35.6 [facility] Comment on above: Performed By: #### B MP, CBC #### [facility] [address] [place] [address] Monocytes (Bld) [#/Vol] 0.9 10*3/uL High 0.0-0.8 [facility] Comment on above: Performed By: #### B MP, CBC #### [address] Monocytes/100 WBC (Bld) 20.36 % High 0.00-20.00 [facility] Comment on above: Result Comment: For adults in ED, MDW > 20.0 may be associated with a higher risk of sepsis during the first 12 hrs of hospital admission Performed By: #### B MP, CBC #### [address] Monocytes/100 WBC (Bld) 5.7 % Normal . [facility] Comment on above: Performed By: #### B MP, CBC #### [address] Neutrophils (Bld) [#/Vol] 13.3 10*3/uL High 1.8-7.7 [facility] Comment on above: Performed By: #### B MP, CBC #### [address] Neutrophils/100 WBC (Bld) 86.6 % Normal . [facility] Comment on above: Performed By: #### B MP, CBC #### [place] [address] [place] NRBC% 0.0 /100{WBC} Normal 0-0.5 [facility] Comment on above: Performed By: #### B MP, CBC #### [address] Platelet mean volume (Bld) [Entitic vol] 9.6 fL Normal 6.6-10.1 [facility] Comment on above: Performed By: #### B MP, CBC #### [address] Platelets (Bld) [#/Vol] 246 10*3/uL Normal 150-450 [facility] Comment on above: Performed By: #### B MP, CBC #### [address] RBC (Bld) [#/Vol] 4.47 10*6/uL Normal 3.90-5.60 [facility] Comment on above: Performed By: #### B MP, CBC #### [address] WBC (Bld) [#/Vol] 15.3 10*3/uL High 4.1-10.5 [facility] Comment on above: Performed By: #### B MP, CBC #### [address] Creatine Kinaseon 05-24-2023 CK [Catalytic activity/Vol] 251 U/L High 30-223 [facility] Comment on above: Performed By: #### P TT, HEPATIC, BMP, PT #### [address] Creatinine [Mass/volume] in Serum or PlasmaOrdered By: Ria Talamantes on 05-24-2023 Creatinine [Mass/Vol] 1.38 mg/dL 0.70-1.30 [facility] D-Dimer High Sensitivityon 0 05-24-2023 D-Dimer High Sensitivity 296 ng/mL High 0-243 [facility] Comment on above: Result Comment: The [...] coagulation studies. Please contact the laboratory at [phone] for redraw instructions. PERFORMED BY: [place] [address] PATHOLOGIST DAY CARE AIDE ROBERTO OCAMPO M.D. Performed By: #### P TT, HEPATIC, BMP, PT #### [facility] [address] [place] [address] [place] Dipstick and Microscopicon 0 05-24-2023 Appearance (U) Clear Normal Clear [facility] Comment on above: Order Comment: Name Collection Type:: Clean-Voided Midstream Performed By: #### P TT, HEPATIC, BMP, PT #### [place] [id number] [place] Bacteria,Urine None Seen Normal None Seen [facility] Comment on above: Order Comment: Name Collection Type:: Clean-Voided Midstream Performed By: #### P TT, HEPATIC, BMP, PT #### [place] [address] [place] Bilirubin,Urine Negative Normal Negative [facility] Comment on above: Order Comment: Name Collection Type:: Clean-Voided Midstream Performed By: #### P TT, HEPATIC, BMP, PT #### [place] [address] [place] Color (U) Yellow Normal Yellow [facility] Comment on above: Order Comment: Name Collection Type:: Clean-Voided Midstream Performed By: #### P TT, HEPATIC, BMP, PT #### [facility] [address] [place], [place] [id number] [place] Glucose Ql (U) Normal Normal Normal [facility] Comment on above: Order Comment: Name Collection Type:: Clean-Voided Midstream Performed By: #### P TT, HEPATIC, BMP, PT #### [place] [id number] [place] Hyaline Casts,Urine 0-8 Normal 0-8 [facility] Comment on above: Order Comment: Name Collection Type:: Clean-Voided Midstream Result Comment: PERF ORMED BY: [place] [address] PATHOLOGIST DAY CARE AIDE ROBERTO OCAMPO M.D. Performed By: #### P TT, HEPATIC, BMP, PT #### [facility] [address] [place] [address] [place] Ketones Ql (U) Negative Normal Negative [facility] Comment on above: Order Comment: Name Collection Type:: Clean-Voided Midstream Performed By: #### P TT, HEPATIC, BMP, PT #### [place] [address] [place] Leukocyte esterase Test strip Ql (U) Negative Normal Negative [facility] Comment on above: Order Comment: Name Collection Type:: Clean-Voided Midstream Performed By: #### P TT, HEPATIC, BMP, PT #### [place] [address] [place] Nitrite,Urine Negative Normal Negative [facility] Comment on above: Order Comment: Name Collection Type:: Clean-Voided Midstream Performed By: #### P TT, HEPATIC, BMP, PT #### [facility] [address] [place] [address] [place] Occult Blood,Urine Negative Normal Negative [facility] Comment on above: Order Comment: Name Collection Type:: Clean-Voided Midstream Result Comment: PERF ORMED BY: [place] [address] PATHOLOGIST DAY CARE AIDE ROBERTO OCAMPO M.D. Performed By: #### P TT, HEPATIC, BMP, PT #### [facility] [address] [place], [place] [id number] [place] pH (U) 5.5 [pH] Normal 5.0-9.0 [facility] Comment on above: Order Comment: Name Collection Type:: Clean-Voided Midstream Performed By: #### P TT, HEPATIC, BMP, PT #### [facility] [address] [place], [place] [id number] [place] Protein (U) [Mass/Vol] 30 mg/dL High Negative [facility] Comment on above: Order Comment: Name Collection Type:: Clean-Voided Midstream Performed By: #### P TT, HEPATIC, BMP, PT #### [facility] [address] [place] [address] RBC,Urine None Seen Normal 0-4 [facility] Comment on above: Order Comment: Name Collection Type:: Clean-Voided Midstream Performed By: #### P TT, HEPATIC, BMP, PT #### [facility] [address] [place] [address] Specificy [place],Urine 1.021 Normal 1.001-1.030 [facility] Comment on above: Order Comment: Name Collection Type:: Clean-Voided Midstream Performed By: #### P TT, HEPATIC, BMP, PT #### [address] Squamous Epithelial Cell,Urine None Seen Normal 0-2 [facility] Comment on above: Order Comment: Name Collection Type:: Clean-Voided Midstream Performed By: #### P TT, HEPATIC, BMP, PT #### [address] Urobilinogen,Urine Normal Normal Normal [facility] Comment on above: Order Comment: Name Collection Type:: Clean-Voided Midstream Performed By: #### P TT, HEPATIC, BMP, PT #### [address] WBC,Urine None Seen Normal 0-4 [facility] Comment on above: Order Comment: Name Collection Type:: Clean-Voided Midstream Performed By: #### P TT, HEPATIC, BMP, PT #### [address] ECG 12 lead ECGon 05-24-2023 ECG 12 lead ECG [facility] [place] [address] [place] [address] Electrocardiograph Report Signed Patient: Tejas Ray MR#: [id number] 0 : 1965 Acct:[id number] Age/Sex: 58 / M ADM Date: 05/24/23 Loc: Room: [address] [place] [address] Type: ADM IN Attending Dr: Arturo Dolan [...] GARRIDO MD Transcribed By: MUS Signed By Nino Garrido MD 05/24/23 193 Normal [facility] Eosinophils Auto (Bld) [#/Vo l]Ordered By: Ria Talamantes on 05-24-2023 Eosinophils (Bld) [#/Vol] 0.1 10*3/uL 0.0-0.45 [facility] Eosinophils/100 WBC Auto (Bl d)Ordered By: Ria Talamantes on 05-24-2023 Eosinophils/100 WBC (Bld) 0.9 % . [facility] Erythrocyte distribution wid th Auto (RBC) [Ratio]Ordered By: Ria Talamantes on 05-24-2023 Erythrocyte distribution width (RBC) [Ratio] 13.9 % 12.0-14.8 [facility] Fibrin D-dimer [Presence] in Platelet poor plasma by Latex agglutinationOrdered By: Ria Talamantes on 05-24-2023 Fibrin D-dimer LA Ql (PPP) 296 ng/mL 0-243 [facility] Comment on above: The reference range [...] coagulation studies. Please contact the laboratory at [phone] for redraw instructions. Free T4 (Free Thyroxine)on 0 05-24-2023 Free T4 [Mass/Vol] 0.88 ng/dL Normal 0.61-1.[address] [facility] Comment on above: Performed By: #### P TT, HEPATIC, BMP, PT #### [facility] [address] [place] [address] [facility] Glucose [Mass/volume] in Ser um or PlasmaOrdered By: Ria Talamantes on 05-24-2023 Glucose [Mass/Vol] 110 mg/dL 70-[address] [facility] Comment on above: ADA recommended refe rence [...] as final has been changed. PERFORMED BY: [address] [address] PATHOLOGIST DAY CARE AIDE ROBERTO OCAMPO M.D. [facility] Comment on above: Performed By: #### P TT, HEPATIC, BMP, PT #### [address] Hematocrit Auto (Bld) [Volum e fraction]Ordered By: Ria Talamantes on 05-24-2023 Hematocrit (Bld) [Volume fraction] 43.2 % 38.8-50.0 [facility] Hemoglobin [Mass/volume] in BloodOrdered By: Ria Talamantes on 05-24-2023 Hemoglobin (Bld) [Mass/Vol] 14.6 g/dL 13.0-17.0 [facility] INR in Platelet poor plasma by Coagulation assayOrdered By: Ria Talamantes on 05-24-2023 INR Coag (PPP) [Relative time] 1.1 {INR} [facility] Comment on above: INR Therapeutic Rang [...] on 05-24-2023 Ketones (U) [Mass/Vol] Negative Negative [facility] Vitaliy Thyroxine (T4)on T4 [Mass/Vol] 6.9 ug/dL Normal 4.5-12.0 [facility] Comment on above: Result Comment: Perf ormed at: CB - [facility] [address] [id number] Configuration Management Administrator: Edwin Nazario PhD, Phone: [phone] PERFORMED BY: [place] [address] PATHOLOGIST DAY CARE AIDE ROBERTO OCAMPO M.D. Performed By: #### L C T4 #### [facility] , Laboratory - UrinalysisOrder ed By: Ria Talamantes on 05-24-2023 Hyaline casts LM Ql (Urine sed) 0-8 [LPF] 0-8 [facility] Lactate [Moles/volume] in Se rum or PlasmaOrdered By: Ria Talamantes on 05-24-2023 Lactate [Moles/Vol] 1.8 mmol/L 0.5-2.2 [facility] Lactic Acidon 05-24-2023 Lactate [Moles/Vol] 1.8 mmol/L Normal 0.5-2.2 [facility] Comment on above: Result Comment: PERF ORMED BY: [facility] [address] [place] [address] PATHOLOGIST DAY CARE AIDE ROBERTO OCAMPO M.D. Performed By: #### P TT, HEPATIC, BMP, PT #### [facility] [address] Leukocytes [#/volume] correc isaiah for nucleated erythrocytes in Blood by Automated counOrdered By: Ria Talamantes on 05-24-2023 WBC corrected for nucl RBC Auto (Bld) [#/Vol] 15.3 10*3/uL 4.1-10.5 [facility] Lymphocytes Auto (Bld) [#/Vo l]Ordered By: Ria Talamantes on 05-24-2023 Lymphocytes (Bld) [#/Vol] 1.0 10*3/uL 1.00-4.8 [facility] Lymphocytes/100 WBC Auto (Bl d)Ordered By: Ria Talamantes on 05-24-2023 Lymphocytes/100 WBC (Bld) 6.3 % . [facility] MCH Auto (RBC) [Entitic mass ]Ordered By: Ria Talamantes on 05-24-2023 MCH (RBC) [Entitic mass] 32.7 pg 27.5-35.2 [facility] MCHC Auto (RBC) [Mass/Vol]Or dered By: Ria Talamantes on 05-24-2023 MCHC (RBC) [Mass/Vol] 33.8 g/dL 32.5-35.6 [facility] MCV Auto (RBC) [Entitic vol] Ordered By: Ria Talamantes on 05-24-2023 MCV (RBC) [Entitic vol] 96.7 fL 83.5-101 [facility] Magnesiumon 05-24-2023 Magnesium [Mass/Vol] 1.9 mg/dL Normal 1.9-2.7 [facility] Comment on above: Result Comment: PERF ORMED BY: [facility] [address] [place] [address] PATHOLOGIST DAY CARE AIDE ROBERTO OCAMPO M.D. Performed By: #### B MP, CBC #### [facility] [address] Magnesium [Mass/volume] in S rafy or PlasmaOrdered By: Ria Talamantes on 05-24-2023 Magnesium [Mass/Vol] 1.9 mg/dL 1.9-2.7 [facility] Monocyte distribution width [Entitic volume] in Blood by AutomatedOrdered By: Ria Talamantes on 05-24-2023 Monocyte distribution width Auto (Bld) [Entitic vol] 20.36 % 0.00-20.00 [facility] Comment on above: For adults in ED, MD W > 20.0 may be associated with a higher risk of sepsis during the first 12 hrs of hospital admission Monocytes Auto (Bld) [#/Vol] Ordered By: Ria Talamantes on 05-24-2023 Monocytes (Bld) [#/Vol] 0.9 10*3/uL 0.0-0.8 [facility] Monocytes/100 WBC Auto (Bld) Ordered By: Ria Talamantes on 05-24-2023 Monocytes/100 WBC (Bld) 5.7 % . [facility] Natriuretic peptide B [Mass/ Vol]Ordered By: Ria Talamantes on 05-24-2023 Natriuretic peptide B (Bld) [Mass/Vol] 221.0 pg/mL 5-100 [facility] Neutrophils Auto (Bld) [#/Vo l]Ordered By: Ria Talamantes on 05-24-2023 Neutrophils (Bld) [#/Vol] 13.3 10*3/uL 1.8-7.7 [facility] Neutrophils/100 WBC Auto (Bl d)Ordered By: Ria Talamantes on 05-24-2023 Neutrophils/100 WBC (Bld) 86.6 % . [facility] Nitrite Test strip Ql (U)Ord ered By: Ria Talamantes on 05-24-2023 Nitrite Ql (U) Negative Negative [facility] No Panel InformationOrdered By: Ria Talamantes on 05-24-2023 Estimated GFR (CKD-EPI) 58.542 mL/Min [facility] Creatinine Clearance (Chem 79.52 [facility] Nucleated erythrocytes [Pres ence] in Blood by Automated countOrdered By: Ria Talamantes on 05-24-2023 Nucleated RBC Auto Ql (Bld) 0.0 /100{WBC} 0-0.5 [facility] Partial Thromboplastin Timeo n 05-24-2023 aPTT Coag (Bld) [Time] 27.5 s Normal 25.1-36.5 [facility] Comment on above: Result Comment: A he matocrit value greater than 55% may lead to inaccurate results in coagulation testing. Patients having hematocrit values >55% require a special collection tube for coagulation studies. Please contact the laboratory at [phone] for redraw instructions. PERFORMED BY: [place] [address] PATHOLOGIST DAY CARE AIDE ROBERTO OCAMPO M.D. Performed By: #### P TT, HEPATIC, BMP, PT #### [address] Platelet mean volume Auto (B ld) [Entitic vol]Ordered By: Ria Talamantes on 05-24-2023 Platelet mean volume (Bld) [Entitic vol] 9.6 fL 6.6-10.1 [facility] Platelets Auto (Bld) [#/Vol] Ordered By: Ria Talamantes on 05-24-2023 Platelets (Bld) [#/Vol] 246 10*3/uL 150-450 [facility] Potassium [Moles/volume] in Serum or PlasmaOrdered By: Ria Talamantes on 05-24-2023 Potassium [Moles/Vol] 4.1 mmol/L 3.5-5.1 [facility] Protein Auto test strip (U) [Mass/Vol]Ordered By: Ria Talamantes on 05-24-2023 Protein (U) [Mass/Vol] 30 mg/dL Negative Fi [facility] Prothrombin Time INRon 05-24 INR Coag (PPP) [Relative time] 1.1 {INR} Normal [facility] Comment on above: Result Comment: INR [...] #### P TT, HEPATIC, BMP, PT #### [facility] [address] [place] [id number] [facility] PT Coag (PPP) [Time] 12.8 s Normal 9.0-12.9 [facility] Comment on above: Result Comment: A he matocrit value greater than 55% may lead to inaccurate results in coagulation testing. Patients having hematocrit values >55% require a special collection tube for coagulation studies. Please contact the laboratory at [phone] for redraw instructions. Performed By: #### P TT, HEPATIC, BMP, PT #### [facility] [address] [place] [id number] [facility] Prothrombin time (PT)Ordered By: Ria Talamantes on 05-24-2023 PT Coag (PPP) [Time] 12.8 s 9.0-12.9 [facility] Comment on above: A hematocrit value g reater than 55% may lead to inaccurate results in coagulation testing. Patients having hematocrit values >55% require a special collection tube for coagulation studies. Please contact the laboratory at [phone] for redraw instructions. RBC Auto (Bld) [#/Vol]Ordere d By: Ria Talamantes on 05-24-2023 RBC (Bld) [#/Vol] 4.47 10*6/uL 3.90-5.60 [facility] Serum or plasma anion gap de terminationOrdered By: Ria Talamantes on 05-24-2023 Anion gap [Moles/Vol] 13.0 mmol/L 6.0-15.0 [facility] Sodium [Moles/volume] in Ser um or PlasmaOrdered By: Ria Talamantes on 05-24-2023 Sodium [Moles/Vol] 136 mmol/L 136-[address] [facility] Specific gravity Auto test s trip (U) [Rel density]Ordered By: Ria Charlesrosemarie on 05-24-2023 Specific gravity (U) [Rel density] 1.021 1.001-1.030 [facility] Squamous epithelial cells de tection in urine sediment by light microscopyOrdered By: Ria Talamantes on 05-24-2023 Epithelial cells.squamous LM Ql (Urine sed) None seen [HPF] 0-2 [facility] Thyroid Stimulating Hormoneo n 05-24-2023 TSH Qn 1.10 m[IU]/L Normal 0.45-5.33 [facility] Comment on above: Result Comment: PERF ORMED BY: [place] [address] PATHOLOGIST DAY CARE AIDE ROBERTO OCAMPO M.D. Performed By: #### P TT, HEPATIC, BMP, PT #### [facility] [address] [place] [address] [place] Troponin I High Sensitivityo n 05-24-2023 Troponin I High Sensitivity 11.5 pg/mL Normal 0.0-20.0 [facility] Comment on above: Result Comment: PERF ORMED BY: [place] [address] PATHOLOGIST DAY CARE AIDE ROBERTO OCAMPO M.D. Performed By: #### P TT, HEPATIC, BMP, PT #### [facility] [address] [place] [address] [place] Troponin I High Sensitivity 8.9 pg/mL Normal 0.0-20.0 [facility] Comment on above: Result Comment: PERF ORMED BY: [facility] [address] [place] [address] PATHOLOGIST DAY CARE AIDE ROBERTO OCAMPO M.D. Performed By: #### B MP, CBC #### [facility] [address] [place] [address] [place] Troponin I.cardiac [Mass/vol ume] in Serum or Plasma by Detection limit <= 0.01 ng/Ordered By: Ria Talamantes on 05-24-2023 Troponin I.cardiac DL <= 0.01 ng/mL [Mass/Vol] 8.9 pg/mL 0.0-20.0 [facility] Urea nitrogen [Mass/volume] in Serum or PlasmaOrdered By: Ria Talamantes on 05-24-2023 Urea nitrogen [Mass/Vol] 23 mg/dL 7-25 [facility] Urine bacteria detection by automated methodOrdered By: Ria Talamantes on 05-24-2023 Bacteria Auto Ql (U) None seen None Seen [facility] Urine clarity by refractomet ry automatedOrdered By: Ria Talamantes on 05-24-2023 Clarity Refractometry automated (U) Clear Clear [facility] Urine glucose measurement by automated test strip (mass/volume)Ordered By: Ria Talamantes on 05-24-2023 Glucose Auto test strip (U) [Mass/Vol] Normal mg/dL Normal [facility] Urine hemoglobin detection b y automated test stripOrdered By: Ria Talamantes on 05-24-2023 Hemoglobin Auto test strip Ql (U) Negative Negative [facility] Urine leukocyte esterase det ection by automated test stripOrdered By: Ria Talamantes on 05-24-2023 Leukocyte esterase Auto test strip Ql (U) Negative Negative [facility] Urobilinogen Auto test strip (U) [Mass/Vol]Ordered By: Ria Talamantes on 05-24-2023 Urobilinogen (U) [Mass/Vol] Normal mg/dL Normal [facility] WBC Auto (Bld) [#/Vol]Ordere d By: Ria Talamantes on 05-24-2023 WBC (Bld) [#/Vol] 15.3 10*3/uL 4.1-10.5 [facility] pH Auto test strip (U)Ordere d By: Ria Talamantes on 05-24-2023 pH (U) 5.5 [pH] 5.0-9.0 [facility] CBC AUTO DIFFon 03-10-2021 BASO # 0.1 103/ul Normal 0.0-0.1 [facility] Comment on above: Performed By: #### C BC #### [facility] [address] [place] [address] Dr. Christina Heredia Basophils/100 WBC (Bld) 0.7 % Normal 0.2-2.0 [facility] Comment on above: Performed By: #### C BC #### [facility] [address] [place] [address] Dr. Christina Heredia EO # 0.2 103/ul Normal 0.0-0.[address] [facility] Comment on above: Performed By: #### C BC #### [facility] [address] [place] [address] Dr. Christina Heredia Eosinophils/100 WBC (Bld) 1.7 % Normal 0.9-7.0 [facility] Comment on above: Performed By: #### C BC #### [facility] [address] [place] [address] Dr. Christina Heredia Erythrocyte distribution width (RBC) [Ratio] 12.6 % Normal 11.0-15.0 [facility] Comment on above: Performed By: #### C BC #### [facility] [address] [place] [address] Dr. Christina Heredia Hematocrit (Bld) [Volume fraction] 43.9 % Normal 42.0-54.0 [facility] Comment on above: Performed By: #### C BC #### [facility] [address] [place] [address] Dr. Christina Heredia Hemoglobin (Bld) [Mass/Vol] 14.1 g/dL Normal 14.0-18.[address] [facility] Comment on above: Performed By: #### C BC #### [facility] [address] [place] [address] Dr. Christina Heredia IG # 0.13 10e3/ul Critically high 0.00-0.03 [facility] Comment on above: Performed By: #### C BC #### [facility] [address] [place] [address] Dr. Christina Heredia IG % 1.5 % Critically high 0.0-0.5 [facility] Comment on above: Performed By: #### C BC #### [facility] [address] [place] [address] Dr. Christina Heredia LYMPH # 2.4 103/ul Normal 1.2-3.8 [facility] Comment on above: Performed By: #### C BC #### [facility] [address] [place] [address] Dr. Christina Heredia Lymphocytes/100 WBC (Bld) 27.0 % Normal 20.5-60.0 [facility] Comment on above: Performed By: #### C BC #### [facility] [address] [place] [address] Dr. Christina Heredia MANUAL DIFF REQ NO Normal [facility] Comment on above: Performed By: #### C BC #### [facility] [address] [place] [address] Dr. Christina Heredia MCH (RBC) [Entitic mass] 30.9 pg Normal 25.9-34.0 [facility] Comment on above: Performed By: #### C BC #### [facility] [address] [place] [address] Dr. Christina Heredia MCHC (RBC) [Mass/Vol] 32.1 g/dL Normal 29.9-35.2 [facility] Comment on above: Performed By: #### C BC #### [facility] [address] [place] [address] Dr. Christina Heredia MCV (RBC) [Entitic vol] 96.3 fL Critically high 80.0-94.0 [facility] Comment on above: Performed By: #### C BC #### [facility] [address] [place] [address] Dr. Christina Heredia MONO # 0.6 103/ul Normal 0.3-0.8 [facility] Comment on above: Performed By: #### C BC #### [facility] [address] [place] [address] Dr. Christina Heredia Monocytes/100 WBC (Bld) 6.4 % Normal 1.7-12.0 [facility] Comment on above: Performed By: #### C BC #### [facility] [address] [place] [address] Dr. Christina Heredia NEUT # 5.5 103/ul Normal 1.4-6.5 [facility] Comment on above: Performed By: #### C BC #### [facility] [address] [place] [address] Dr. Christina Heredia Neutrophils/100 WBC (Bld) 62.7 % Normal 43.0-75.0 [facility] Comment on above: Performed By: #### C BC #### [facility] [address] [place] [address] Dr. Christina Heredia Platelet mean volume (Bld) [Entitic vol] 10.8 fL Normal 9.5-13.5 [facility] Comment on above: Performed By: #### C BC #### [facility] [address] [place] [address] Dr. Christina Heredia PLT 251 103/ul Normal 150-[address] [facility] Comment on above: Performed By: #### C BC #### [facility] [address] [place] [address] Dr. Christina Heredia RBC 4.56 106/ul Critically low 4.70-6.[address] [facility] Comment on above: Performed By: #### C BC #### [facility] [address] [place] [address] Dr. Christina Heredia WBC 8.7 103/ul Normal 4.0-11.[address] [facility] Comment on above: Performed By: #### C BC #### [facility] [address] [place] [address] Dr. Christina Heredia CRPon 03-10-2021 CRP [Mass/Vol] mg/L Normal <=1.[address] [facility] Comment on above: Performed By: #### C RP, CMP #### [facility] [address] [place] [address] Dr. Christina Heredia MONOon 03-10-2021 Monocytes (Bld) [#/Vol] Negative Normal NEGATIVE [facility] Comment on above: Performed By: #### M CHRISTIANO #### [facility] [address] [address] [address] Christina Heredia PROF 14(COMP METB)on 021 Albumin [Mass/Vol] 3.3 g/dL Critically low 3.5-5.0 [facility] Comment on above: Performed By: #### C RP, CMP #### [facility] [address] [place] [address] Dr. Christina Heredia Albumin/Globulin [Mass ratio] 0.8 {ratio} Normal [facility] Comment on above: Performed By: #### C RP, CMP #### [facility] [address] [place] [address] Dr. Christina Heredia ALP [Catalytic activity/Vol] 64 U/L Normal 38-126 [facility] Comment on above: Performed By: #### C RP, CMP #### [facility] [address] [place] [address] Dr. Christina Heredia ALT [Catalytic activity/Vol] 42 U/L Normal 21-72 [facility] Comment on above: Performed By: #### C RP, CMP #### [facility] [address] [place] [address] Dr. Christina Heredia Anion gap [Moles/Vol] 11.4 mmol/L Normal [facility] Comment on above: Performed By: #### C RP, CMP #### [facility] [address] [place] [address] Dr. Christina Heredia AST [Catalytic activity/Vol] 18 U/L Normal 17-59 [facility] Comment on above: Performed By: #### C RP, CMP #### [facility] [address] [place] [address] Dr. Christina Heredia Bilirubin [Mass/Vol] 0.5 mg/dL Normal 0.2-1.3 [facility] Comment on above: Performed By: #### C RP, CMP #### [facility] [address] [place] [address] Dr. Christina Heredia Calcium [Mass/Vol] 8.8 mg/dL Normal 8.4-10.2 [facility] Comment on above: Performed By: #### C RP, CMP #### [facility] [address] [address] [address] Christina Heredia Chloride [Moles/Vol] 109 mmol/L Critically high 98-107 [facility] Comment on above: Performed By: #### C RP, CMP #### [facility] [address] [place] [address] Dr. Christina Heredia CO2 [Moles/Vol] 24.3 mmol/L Normal 22.0-30.0 [facility] Comment on above: Performed By: #### C RP, CMP #### [facility] [address] [place] [address] Dr. Christina Heredia Creatinine [Mass/Vol] 1.43 mg/dL Critically high 0.66-1.25 [facility] Comment on above: Performed By: #### C RP, CMP #### [facility] [address] [place] [address] Dr. Christina Heredia EGFR-AF BURUNDIAN >60 Normal >=60 [facility] Comment on above: Performed By: #### C RP, CMP #### [facility] [address] [place] [address] Dr. Christina Heredia EGFR-NON AF BURUNDIAN 51 mL/min/1.73m2 Critically low >=60 [facility] Comment on above: Performed By: #### C RP, CMP #### [facility] [address] [place] [address] Dr. Christina Heredia Globulin (S) [Mass/Vol] 4.1 g/dL Normal [facility] Comment on above: Performed By: #### C RP, CMP #### [facility] [address] [place] [address] Dr. Christina Heredia Glucose [Mass/Vol] 113 mg/dL Critically high 74-106 [facility] Comment on above: Performed By: #### C RP, CMP #### [facility] [address] [place] [address] Dr. Christina Heredia Potassium [Moles/Vol] 4.7 mmol/L Normal 3.4-5.0 [facility] Comment on above: Performed By: #### C RP, CMP #### [facility] [address] [address] [address] Christina Heredia Protein [Mass/Vol] 7.4 g/dL Normal 6.1-8.2 [facility] Comment on above: Performed By: #### C RP, CMP #### [facility] [address] [address] [address] Christina Heredia Sodium [Moles/Vol] 140 mmol/L Normal 137-145 [facility] Comment on above: Performed By: #### C RP, CMP #### [facility] [address] [address] [address] Christina Heredia Urea nitrogen [Mass/Vol] 18.0 mg/dL Normal 9.0-20.0 [facility] Comment on above: Performed By: #### C RP, CMP #### [facility] [address] [place] [address] Dr. Christina Heredia Urea nitrogen/Creatinine [Mass ratio] 12.6 mg/mg Normal [facility] Comment on above: Performed By: #### C RP, CMP #### [facility] [address] [place] [address] Dr. Christina Heredia Vital Signs Date Time Vital Sign Value Performing Clinician Butch lawler 05-28-2023 18:00-0500 Diastolic blood pressure 82 mm[Hg] MD Costa Guevara Work Phone: [facility] 05-28-2023 18:00-0500 Heart rate 128 /min MD Costa Guevara Work Phone: [facility] 05-28-2023 18:00-0500 Respiratory rate 20 /min MD Costa Guevara Work Phone: [facility] 05-28-2023 18:00-0500 SaO2% (BldA) [Mass fraction] 94 % MD Costa Guevara Work Phone: [facility] 05-28-2023 18:00-0500 Systolic blood pressure 131 mm[Hg] MD Costa Guevara Work Phone: [facility] 05-28-2023 12:38-0500 Body height 167.64 cm MD Costa Guevara Work Phone: [facility] 05-28-2023 12:38-0500 Body temperature 98.2 [degF] MD Costa Guevara Work Phone: [facility] 05-28-2023 12:38-0500 Body weight 136.07 kg MD Costa Guevara Work Phone: [facility] 05-27-2023 12:10-0500 Heart rate 92 /min [facility] 05-27-2023 12:10-0500 Respiratory rate 20 /min [facility] 05-27-2023 09:00-0500 Body temperature 97.7 [degF] [facility] 05-27-2023 09:00-0500 Diastolic blood pressure 69 mm[Hg] [facility] 05-27-2023 09:00-0500 SaO2% (BldA) [Mass fraction] 94 % [facility] 05-27-2023 09:00-0500 Systolic blood pressure 114 mm[Hg] [facility] 05-27-2023 08:13-0500 Inhaled oxygen flow rate 1 L/min [facility] 05-27-2023 04:56-0500 Body weight 144.3 kg [facility] 05-24-2023 18:51-0500 Body height 167.64 cm [facility] 05-24-2023 18:31-0500 Diastolic blood pressure 74 mm[Hg] MD Costa Guevara Work Phone: [facility] 05-24-2023 18:31-0500 Heart rate 109 /min MD Costa Guevara Work Phone: [facility] 05-24-2023 18:31-0500 Inhaled oxygen flow rate 2 L/min MD Costa Guevara Work Phone: [facility] 05-24-2023 18:31-0500 Respiratory rate 24 /min MD Costa Guevara Work Phone: [facility] 05-24-2023 18:31-0500 SaO2% (BldA) [Mass fraction] 95 % MD Costa Guevara Work Phone: [facility] 05-24-2023 18:31-0500 Systolic blood pressure 111 mm[Hg] MD Costa Guevara Work Phone: [facility] 05-24-2023 17:09-0500 Body temperature 99.6 [degF] MD Costa Guevara Work Phone: [facility] 05-24-2023 14:35-0500 Body height 167.64 cm MD Costa Guevara Work Phone: [facility] 05-24-2023 14:35-0500 Body weight 151.2 kg MD Costa Guevara Work Phone: [facility] Encounters Encounter Date Encounter Type Care Provider Facility Start: 05-28-2023 End: 05-28-2023 Emergency department patient visit Edwin Mckinney Facility:[facility] Start: 05-28-2023 End: 05-28-2023 Emergency department patient visit MD Costa Guevara Work Phone: [facility] Work Phone: Start: 05-24-2023 End: 05-27-2023 Evaluation and management of inpatient Concepción Mischler Facility:[facility] Start: 05-24-2023 Evaluation and management of inpatient MD Costa Guevara Work Phone: [facility] Work Phone: Start: 05-24-2023 Non-patient / Non-visit [facility] Work Phone: Start: 03-10-2021 End: 03-11-2021 [...] limb veins US venous duplex LE RT [facility] Start: 05-28-2023 US Lower extremity v ein - right [facility] Start: 05-27-2023 [facility] Start: 05-24-2023 Hospital admission [facility] Start: 05-24-2023 [facility] Start: 05-24-2023 Bacteria identified in Blood by Culture [facility] Patient Education Atrial fibrill ation Muscle and Bone Pain (DC) [facility] Work Phone: Patient referral [facility] Work Phone: Immunizations Immunization Date Immunization Notes Care Provider Fa cility 05-27-2023 influenza, injectabl e, quadrivalent, preservative free [facility] 09-01-2020 COVID-19 mRNA, Comirnaty (Pfizer) MD Costa Guevara Work Phone: [facility] 08-11-2020 COVID-19 mRNA Comirnatgrisel (Pfizer) MD Costa Guevara Work Phone: [facility] 03-24-2019 tetanus toxoid, redu rene diphtheria toxoid, and acellular pertussis vaccine, adsorbed MD Costa Guevara Work Phone: [facility] Payers Date Payer Category Payer Self-pay [id number] [facility] 1965 Unknown [id number] 1961 [employer] ( and others) [id number] Unknown [id number] Unknown [id number] Social History Date Type Detail Facility Start: 05-24-2023 End: 05-28-2023 Tobacco smoking status NHIS Never smoked tobacco (finding) [facility] Start: 1965 Sex Assigned At Male F [facility] Evaluation note Note Date & Type Note Facility Evaluation note Diagnosis Onset Date Atrial fibrillation with RVR acute Hypoxia acute Pneumonia acute Sepsis acute [facility] Work Phone: Evaluation note Note Date & Type Note Facility Evaluation note Diagnosis Onset Date Atrial fibrillation with RVR acute Bacteremia due to Streptococcus pneumoniae acute BMI 50.0-59.9, adult acute Hyperglycemia acute Hypoxia acute Infection, streptococcus pneumoniae acute Leg edema acute Pneumonia acute Sepsis acute [facility] Work Phone: Hospital Discharge instructions Note Date & Type Note Facility Hospital Discharge instructions Ambulatory OrdersDME Home Medical Equipment Time Frame: 1 Day, Location: Determined By Patient Additional Instructions Wound care: - Every 2 days - left leg- clean wounds with vashe, apply skin prep to tam wound, apply silver sorb gel to wound bed and place Telfa/non-stick dressing/Large band-aid. [facility] Work Phone: Summary Purpose Family History No [...] DATE CREATED AUTHOR AUTHOR'S ORGANIZ ATION 06/12/2023 [facility] Care Teams (unrecognized sec tion and content) [...] Start: J anuary 2023 Shanel Card , [facility]- Other Provider Active Sta rt: May [...] BE BASED ON THE PRIMARY CLINICAL RECORDS. [facility]. provides no warranty or guarantee of the accuracy or completeness of information in this document.
--- NOTE | 2023-07-26 12:28 | PHOTOS ---
left upper thigh
[2023-07-26] MEDS: VANCOMYCIN HCL 1,000 MG in 0.9 % SODIUM CHLORIDE 250 ML 250 MG IV (14:09)
[2023-07-26 14:21] LABS: Magnesium 2.4 mg/dL (1.8-2.4)
[2023-07-26 14:28] LABS: Erythrocyte Sedimentation Rate 125 mm/hr (<=20)
[2023-07-26 14:30] LABS: Lactate/Lactic Acid 1.9 mmol/L (0.4-2.0)
--- NOTE | 2023-07-26 15:10 | P.HP_ITS ---
HPI H&P: HPI History of Present Illness Chief complaint: L THIGH ABSCESS Narrative: Seen and evaluated patient in the office, he stated 2 days ago he had a little bit of swelling probably the size of a grape in his left upper thigh, was worse in the next 2 days and increased in size, dramatically increased in size overnight to the point its almost the size of a softball. Patient presented to the office and had been draining at that time. Still concerning for abscess due to the degree of induration around of the opening. Insert for patient to ER for evaluation. CT scan showed possible phlegmon forming but no definite drainable abscess. Patient be admitted for workup and treatment of same Opioid HPI Opioid Management Most Recent Opioid Data: Last Pain Assessment 07/26/23 16:45 Review of Systems ROS Status of ROS 10 or more systems reviewed and unremark able except as noted in history and below PFSH PFSH Medical History (Updated 07/26/23 @ 12:08 by Abida Coelho) Hiatal hernia ?K44.9 - Diaphragmatic hernia without obstruction or gangrene (ICD-10) Pericardial effusion ?I31.39 - Other pericardial effusion (noninflammatory) (ICD-10) A-fib ?I48.91 - Unspecified atrial fibrillation (ICD-10) Hypertension ?I10 - Essential (primary) hypertension (ICD-10) Surgical History (Updated 07/26/23 @ 12:05 by Abida Coelho) Status post ablation of ventricular arrhythmia ?Z98.890 - Other specified postprocedural states (ICD-10) ?Z86.79 - Personal history of other diseases of the circulatory system (ICD- 10) S/P foot surgery, right ?Z98.890 - Other specified postprocedural states (ICD-10) H/O knee surgery ?Z98.890 - Other specified postprocedural states (ICD-10) Family History (Updated 07/26/23 @ 12:06 by Abida Coelho) Father Family history of myocardial infarction Mother Family history of stroke Family history of hypertension Sister Family history of COPD (chronic obstructive pulmonary disease) Family history of hypertension Social History (Updated 07/26/23 @ 12:07 by Abida Coelho) Within the past year, how often did you have a drink containing alcohol: monthly or less Within the past year, how often did you have six or more drinks on one occasion: never Smoking status: Never smoker Non-prescribed substance use: denies use 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 Highest level of school completed/degree received: Associate degree: academic program Are you now , , , , never or living with a partner: Little interest or pleasure in doing things: not at all Feeling down, depressed, or hopeless: not at all Feel stressed/tense/nervous/anxious/difficulty sleeping: not at all Meds Home Medications and Allergies Home Medications ?Medication ?Instructions ?Recorded ?Confirmed ?Type amiodarone 200 mg tablet 200 mg PO Q12H 07/26/23 07/26/23 History apixaban 5 mg tablet (Eliquis) 5 mg PO Q12H 07/26/23 07/26/23 History diclofenac sodium 75 mg 75 mg PO Q12H 07/26/23 07/26/23 History tablet,delayed release diltiazem HCl 120 mg 120 mg PO Q24H 07/26/23 07/26/23 History capsule,extended release 24 hr furosemide 40 mg tablet 40 mg PO Q12H 07/26/23 07/26/23 History pantoprazole 40 mg tablet,delayed 40 mg PO DAILY 07/26/23 07/26/23 History release Allergies Allergy/AdvReac Type Severity Reaction Status Date / Time No Known Drug Allergies Allergy Verified 07/26/23 09:14 Exam Constitutional Vital Signs, click to edit/add: Last Vital Signs Temp 98 F 07/26/23 15:43 Pulse 101 H 07/26/23 15:43 Resp 2 L 07/26/23 15:43 BP 122/71 07/26/23 15:43 Pulse Ox 95 07/26/23 15:43 O2 Del Method Room Air 07/26/23 15:43 Documenting provider has reviewed patient's vital signs: yes Common normals: apparent distress (Moderate painful distress) HENMT Common normals: normocephalic Chest Common normals: inspection of chest normal Respiratory Common normals: normal respiratory effort and no retractions Cardio Common normals: regular rate; irregular rhythm Rhythm: abnormal rhythm GI Common normals: Normal to inspection, nondistended, normoactive bowel sounds present Extremity Common normals: abnormal to inspection (Left upper thigh with large abscess draining, calor, dolor, rubor) Results Labs Labs: Short CBC 07/26/23 Range/Units 09:30 WBC 13.0 H (4.0-11.0) 10^3/uL Hgb 14.0 (14.0-18.0) g/dL Hct 43.5 (42.0-54.0) % Plt Count 237 (150-450) 10^3/uL BMP 07/26/23 09:30 Sodium 140 Potassium 3.9 Chloride 103 Carbon Dioxide 22.0 BUN 19.0 H Creatinine 1.60 H Glucose 113 H Calcium 8.7 Liver Function 07/26/23 Range/Units 09:30 Total Bilirubin 0.9 (0.2-1.0) mg/dL AST 13 L (15-37) U/L ALT 23 (16-63) U/L Alkaline Phosphatase 71 (46-116) U/L Albumin 3.1 L (3.4-5.0) g/dL Assessment and Plan Assessment and Plan (1) Abscess of skin or subcutaneous tissue: Qualifiers: Laterality: left Site of cutaneous abscess of extremity: lower extremity (2) Hiatal hernia: (3) A-fib: (4) Hypertension: Plan Sinus tachycardia, respiratory distress, leukocytosis secondary to left upper inner thigh abscess -early phlegmon formation possible also on CT scan. 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 Consultation to surgery. 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 Medically necessary treatment spanning more than 2 midnights, likely future surgical intervention: inpatient status.
[2023-07-26] MEDS: PIPERACILLIN SODIUM/TAZOBACTAM 3.375 GM in 0.9 % SODIUM CHLORIDE 50 ML IV ×2 (15:21→22:56)
[2023-07-26] MEDS: 0.9 % SODIUM CHLORIDE 250 ML 20 ML IV (15:51)
[2023-07-26] MEDS: FUROSEMIDE 40 MG TABLET PO (20:38)
[2023-07-26] MEDS: AMIODARONE HCL 200 MG TABLET PO (20:38)
[2023-07-26 22:24] LABS: Bilirubin Urine NEGATIVE (NEGATIVE); Blood Urine NEGATIVE (NEGATIVE); Clarity Urine CLEAR (CLEAR); Color Urine LT. YELLOW (YELLOW); Glucose Urine UA NEGATIVE (NEGATIVE); Ketones Urine NEGATIVE (NEGATIVE); Leukocyte Esterase Urine NEGATIVE (NEGATIVE); Nitrite Urine NEGATIVE (NEGATIVE); Protein Urine NEGATIVE (NEG/TRACE); Specific Gravity Urine 1.015 (1.005-1.025); Urine Microscopic Indicated NO; Urobilinogen Urine 0.2 EU/dL (0.2-1.0)
[2023-07-27] VITALS (17 sets, daily range): BP systolic 110–167; BP diastolic 69–95; PULSE 75–125; RESP 18–24; TEMP 36.1–37.1; O2SAT 91–97
[2023-07-27 05:17] LABS: Basophils Absolute Auto 0.1 10^3/uL (0.0-0.1); Basophils Percent Auto 0.6 % (0.2-2.0); Eosinophils Absolute Auto 0.2 10^3/uL (0.0-0.7); Eosinophils Percent Auto 1.8 % (0.9-7.0); Hemoglobin 13.4 g/dL (14.0-18.0); Immature Granulocytes Abs Auto 0.04 10^3/uL (0.00-0.03); Immature Granulocytes Pct Auto 0.4 % (0.0-0.5); Lymphocytes Absolute Auto 2.4 10^3/uL (1.2-3.8); Lymphocytes Percent Auto 24.2 % (20.5-60.0); Mean Corpuscular HGB Conc 31.2 g/dL (29.9-35.2); Mean Corpuscular Hemoglobin 31.8 pg (25.9-34.0); Mean Corpuscular Volume 101.9 fL (80.0-94.0); Mean Platelet Volume 10.8 fL (9.5-13.5); Monocytes Absolute Auto 0.8 10^3/uL (0.3-0.8); Neutrophils Absolute Auto 6.5 10^3/uL (1.4-6.5); Platelet Count 246 10^3/uL (150-450); Red Blood Count 4.22 10^6/uL (4.70-6.10); Red Cell Distribution Width 13.2 % (11.0-15.0)
[2023-07-27 05:30] LABS: Erythrocyte Sedimentation Rate 122 mm/hr (<=20)
[2023-07-27 05:40] LABS: Alanine Aminotransferase 21 U/L (16-63); Albumin Globulin Ratio 0.7; Alkaline Phosphatase 61 U/L (46-116); Anion Gap 13.3; Aspartate Amino Transferase 9 U/L (15-37); BUN Creatinine Ratio 12.5; Bilirubin Total 0.9 mg/dL (0.2-1.0); Calcium 8.7 mg/dL (8.5-10.1); Carbon Dioxide 25.6 mmol/L (21.0-32.0); Chloride 103 mmol/L (98-107); Estimated GFR (African America >60 (>=60); Estimated GFR (Non-African Ame 50 (>=60); Globulin 4.4 g/dL; Glucose 105 mg/dL (74-106); Potassium 3.9 mmol/L (3.5-5.1); Sodium 138 mmol/L (136-145); Total Protein 7.4 g/dL (6.4-8.2)
[2023-07-27] MEDS: PIPERACILLIN SODIUM/TAZOBACTAM 3.375 GM in 0.9 % SODIUM CHLORIDE 50 ML IV ×3 (06:29→22:19)
--- NOTE | 2023-07-27 08:54 | P.GSCN_ITS ---
History of Present Illness Consult details Consult date: 07/27/23 Reason for consult: wound care (patient has cellulitis with abscess left medial thigh ?2-[address]) Requesting physician: Storm Guevara Narrative: Tejas Ray Junior is a 58-year-old male presented to his family practitioner's office yesterday with complaints of a two day history of redness and pain in the left medial thigh area near his groin. He denies any fevers or chills but was uncomfortable. Denies any history of diabetes mellitus. He is morbidly obese in that his BMI is 51.3. He underwent a CT scan of the pelvis which showed cellulitis but no definite fluid collection. The area spontaneously opened slightly and was cultured by Emergency Department physician and patient is on intravenous antibiotics. The area was outlined by nursing or his physician and the redness had subsided somewhat. Patient is on eloquis due to atrial fibrillation. 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 He is scheduled for cardiac ablation? This Saturday. Review of Systems 2 ROS0 Status of ROS 10 or more systems reviewed and unremark able except as noted in history and below [facility] Medical History (Updated 07/26/23 @ 12:08 by Abida Coelho) Hiatal hernia ?K44.9 - Diaphragmatic hernia without obstruction or gangrene (ICD-10) Pericardial effusion ?I31.39 - Other pericardial effusion (noninflammatory) (ICD-10) A-fib ?I48.91 - Unspecified atrial fibrillation (ICD-10) Hypertension ?I10 - Essential (primary) hypertension (ICD-10) Surgical History Status post ablation of ventricular arrhythmia ?Z98.890 - Other specified postprocedural states (ICD-10) ?Z86.79 - Personal history of other diseases of the circulatory system (ICD- 10) S/P foot surgery, right ?Z98.890 - Other specified postprocedural states (ICD-10) H/O knee surgery ?Z98.890 - Other specified postprocedural states (ICD-10) Family History Father Family history of myocardial infarction Mother Family history of stroke Family history of hypertension Sister Family history of COPD (chronic obstructive pulmonary disease) Family history of hypertension Social History Within the past year, how often did you have a drink containing alcohol: monthly or less Within the past year, how often did you have six or more drinks on one occasion: never Smoking status: Never smoker Non-prescribed substance use: denies use 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 Highest level of school completed/degree received: Associate degree: academic program Are you now , , , , never or living with a partner: Little interest or pleasure in doing things: not at all Feeling down, depressed, or hopeless: not at all Feel stressed/tense/nervous/anxious/difficulty sleeping: not at all Meds Home Medications and Allergies Home Medications ?Medication ?Instructions ?Recorded ?Confirmed ?Type amiodarone 200 mg tablet 200 mg PO Q12H 07/26/23 07/26/23 History apixaban 5 mg tablet (Eliquis) 5 mg PO Q12H 07/26/23 07/26/23 History diclofenac sodium 75 mg 75 mg PO Q12H 07/26/23 07/26/23 History tablet,delayed release diltiazem HCl 120 mg 120 mg PO Q24H 07/26/23 07/26/23 History capsule,extended release 24 hr furosemide 40 mg tablet 40 mg PO Q12H 07/26/23 07/26/23 History pantoprazole 40 mg tablet,delayed 40 mg PO DAILY 07/26/23 07/26/23 History release Allergies Allergy/AdvReac Type Severity Reaction Status Date / Time No Known Drug Allergies Allergy Verified 07/26/23 09:14 Exam Constitutional Vital Signs, click to edit/add: Last Vital Signs Temp 98.4 F 07/27/23 04:00 Pulse 102 H 07/27/23 04:00 Resp 20 07/27/23 04:00 BP 130/86 07/27/23 04:00 Pulse Ox 93 L 07/27/23 04:45 O2 Del Method Room Air 07/27/23 04:45 Documenting provider has reviewed patient's vital signs: yes Common normals: no apparent distress, oriented x3, healthy appearing and well nourished General appearance: cooperative and well developed Nutritional appearance: overweight Orientation/consciousness: Yes awake, Yes oriented to person, Yes oriented to place and Yes oriented to time Extremity Left lower extremity: upper leg Left upper leg: inspection (erythematous large area 20 x 20 cm with a small 1 cm minimal opening ) and other Other: erythematous slightly tender to touch;egg to lemon-sized mass underneath small opening with erythema Extremity image (front): 2 1. less than 1 cm opening draining purulent drainage 2. erythema Results Labs Labs: Abnormal lab results 07/26/23 07/27/23 Range/Units 09:30 04:42 WBC 13.0 H (4.0-11.0) 10^3/uL RBC 4.29 L 4.22 L (4.70-6.10) 10^6/uL Hgb 13.4 L (14.0-18.0) g/dL MCV 101.4 H 101.9 H (80.0-94.0) fL Neut # (Auto) 8.7 H (1.4-6.5) 10^3/uL Blair # (Auto) 1.2 H (0.3-0.8) 10^3/uL Abs Immat Gran (auto) 0.07 H 0.04 H (0.00-0.03) 10^3/uL ESR 125 H 122 H (<=20) mm/hr BUN 19.0 H (7.0-18.0) mg/dL Creatinine 1.60 H 1.44 H (0.70-1.30) mg/dL Est GFR ( Amer) 54 L (>=60) Est GFR (Non-Af Amer) 44 L 50 L (>=60) Glucose 113 H (74-106) mg/dL AST 13 L 9 L (15-37) U/L Albumin 3.1 L 3.0 L (3.4-5.0) g/dL Diabetes panel 07/26/23 07/27/23 Range/Units 09:30 04:42 Sodium 140 138 (136-145) mmol/L Potassium 3.9 3.9 (3.5-5.1) mmol/L Chloride 103 103 (98-107) mmol/L Carbon Dioxide 22.0 25.6 (21.0-32.0) mmol/L BUN 19.0 H 18.0 (7.0-18.0) mg/dL Creatinine 1.60 H 1.44 H (0.70-1.30) mg/dL Glucose 113 H 105 (74-106) mg/dL Calcium 8.7 8.7 (8.5-10.1) mg/dL AST 13 L 9 L (15-37) U/L ALT 23 21 (16-63) U/L Alkaline Phosphatase 71 61 (46-116) U/L Total Protein 7.6 7.4 (6.4-8.2) g/dL Albumin 3.1 L 3.0 L (3.4-5.0) g/dL Calcium panel 07/26/23 07/27/23 Range/Units 09:30 04:42 Calcium 8.7 8.7 (8.5-10.1) mg/dL Albumin 3.1 L 3.0 L (3.4-5.0) g/dL Pituitary panel 07/26/23 07/27/23 Range/Units 09:30 04:42 Sodium 140 138 (136-145) mmol/L Potassium 3.9 3.9 (3.5-5.1) mmol/L Chloride 103 103 (98-107) mmol/L Carbon Dioxide 22.0 25.6 (21.0-32.0) mmol/L BUN 19.0 H 18.0 (7.0-18.0) mg/dL Creatinine 1.60 H 1.44 H (0.70-1.30) mg/dL Glucose 113 H 105 (74-106) mg/dL Calcium 8.7 8.7 (8.5-10.1) mg/dL Adrenal panel 07/26/23 07/27/23 Range/Units 09:30 04:42 Sodium 140 138 (136-145) mmol/L Potassium 3.9 3.9 (3.5-5.1) mmol/L Chloride 103 103 (98-107) mmol/L Carbon Dioxide 22.0 25.6 (21.0-32.0) mmol/L BUN 19.0 H 18.0 (7.0-18.0) mg/dL Creatinine 1.60 H 1.44 H (0.70-1.30) mg/dL Glucose 113 H 105 (74-106) mg/dL Calcium 8.7 8.7 (8.5-10.1) mg/dL Total Bilirubin 0.9 0.9 (0.2-1.0) mg/dL AST 13 L 9 L (15-37) U/L ALT 23 21 (16-63) U/L Alkaline Phosphatase 71 61 (46-116) U/L Total Protein 7.6 7.4 (6.4-8.2) g/dL Albumin 3.1 L 3.0 L (3.4-5.0) g/dL All other labs normal. Imaging CT scan - chest: report reviewed Assessment and Plan Assessment and Plan (1) Abscess of skin or subcutaneous tissue: Qualifiers: Laterality: left Site of cutaneous abscess of extremity: lower extremity (2) Hiatal hernia: (3) A-fib: (4) Hypertension: Plan incision and drainage under general anesthesia left medial thigh; risks benefits and alternatives to surgery may include infection bleeding risks of anesthesia. He agrees to surgery. The area will be packed open left to granulate in. May or may not need a wound VAC. This will need to be handled as a outpatient. Wound care nurse should be involved.
--- NOTE | 2023-07-27 09:03 | PM.GSPRC ---
Date of procedure: 07/27/23 Indications for Procedure: left medial thigh abscess with cellulitis Pre-op diagnosis: left medial thigh abscess with cellulitis Post-op diagnosis: same as pre-op Procedure: incision and drainage of complex left medial thigh abscess Anesthesia: KALYAN Surgeon: Jacques Dorantes Procedure Summary: 58-year-old male was taken to the operating suite placed in the lithotomy position after being given a general anesthetic by the racing driver. The left medial thigh and groin were prepped and draped usual sterile fashion. There was a small opening and egg shaped mass in the left medial thigh just below the groin and a generous incision was made with #11 blade and cultures were taken. The area was then irrigated with normal saline and then packed with 1 inch iodoform gauze. Sterile dressings were placed. Sponge needle and instrument counts were correct. Estimated blood loss (mL): 5 Specimens: culture and sensitivity left medial thigh abscess Complications: No Pathology: other (wound cultures) Condition: stable Disposition: PACU
[2023-07-27] MEDS: DILTIAZEM HCL 120 MG CAP.ER.24H PO (09:16)
[2023-07-27] MEDS: AMIODARONE HCL 200 MG TABLET PO ×2 (09:16→20:13)
--- NOTE | 2023-07-27 09:16 | P.PN_ITS ---
Progress Note: Subjective Subjective Interval history: patient was taken to the OR today by general surgery for incision and drainage of left upper thigh abscess. I am seeing him in the postoperative setting back in his MedSurg room. Patient denies any pain, fevers, chills or chest pain nausea vomiting or diarrhea. Patient was started on IV vancomycin and Zosyn. Patient has a history of atrial fibrillation and had been holding eloquent secondary to surgery, but discussed case with Dr. Dorantes and he is okay to resume Eliquis tonight. Wound consult pending. Exam Narrative Exam Narrative: General: Patient is alert, and oriented to person, place and time with normal affect, proper hygiene Skin: area on the left upper thigh is demarcated, dressing is c/d/i Head: atraumatic, acephalic Eyes: PERRLA, no nystagmus present, conjunctiva clear, no scleral icterus Ears: normal gross auditory acuity Heart: Normal rate and rhythm, no murmurs/rubs/gallops Lungs: no audible wheezes, crackles and normal breath sounds all lung jha Abdomen: Normal audible bowel sounds, no distension, No palpable masses, no organomegaly, no rebound/guarding/ or rigidity Neuro: CN II-X grossly intact Constitutional Vital Signs, click to edit/add: Last Vital Signs Temp 97.6 F 07/27/23 09:15 Pulse 75 07/27/23 09:15 Resp 18 07/27/23 09:15 BP 156/94 H 07/27/23 09:15 Pulse Ox 93 L 07/27/23 09:15 O2 Del Method Room Air 07/27/23 09:15 Progress Note: Objective Labs Labs: Short CBC 07/26/23 07/27/23 Range/Units 09:30 04:42 WBC 13.0 H 10.0 (4.0-11.0) 10^3/uL Hgb 14.0 13.4 L (14.0-18.0) g/dL Hct 43.5 43.0 (42.0-54.0) % Plt Count 237 246 (150-450) 10^3/uL BMP 07/26/23 07/27/23 09:30 04:42 Sodium 140 138 Potassium 3.9 3.9 Chloride 103 103 Carbon Dioxide 22.0 25.6 BUN 19.0 H 18.0 Creatinine 1.60 H 1.44 H Glucose 113 H 105 Calcium 8.7 8.7 Liver Function 07/26/23 07/27/23 Range/Units 09:30 04:42 Total Bilirubin 0.9 0.9 (0.2-1.0) mg/dL AST 13 L 9 L (15-37) U/L ALT 23 21 (16-63) U/L Alkaline Phosphatase 71 61 (46-116) U/L Albumin 3.1 L 3.0 L (3.4-5.0) g/dL Urine 07/26/23 Range/Units 22:15 Urine Color Lt. yellow (YELLOW) Urine Clarity Clear (CLEAR) Urine pH 7.0 (5.0-9.0) Ur Specific [place] 1.015 (1.005-1.025) Urine Protein Negative (NEG/TRACE) mg/dL Urine Glucose (UA) Negative (NEGATIVE) mg/dL Progress Note: A&P Assessment and Plan (1) Abscess of skin or subcutaneous tissue: Assessment and Plan: continue IV Zosyn and vancomycin. Status post incision and drainage today in the OR. Awaiting wound culture results Qualifiers: Laterality: left Site of cutaneous abscess of extremity: lower extremity (2) Hiatal hernia: Assessment and Plan: and continue pantoprazole (3) A-fib: Assessment and Plan: continue amiodarone, diltiazem and resume eliquis (4) Hypertension: Assessment and Plan: stable continue home medications Plan patient is a full code Continue IV antibiotics until cultures resulted Patient is an inpatient status and is expected to cross more than two midnights
[2023-07-27] MEDS: LACTATED RINGER'S SOLUTION 1,000 ML 50 ML IV (09:39)
[2023-07-27] MEDS: FUROSEMIDE 40 MG TABLET PO ×2 (12:47→20:14)
[2023-07-27] MEDS: 0.9 % SODIUM CHLORIDE 250 ML 10 ML IV (15:42)
[2023-07-27] MEDS: ACETAMINOPHEN 500 MG TABLET 1000 MG PO (20:13)
[2023-07-27] MEDS: APIXABAN 5 MG TABLET PO (20:14)
[2023-07-28] VITALS (9 sets, daily range): BP systolic 107–142; BP diastolic 65–83; PULSE 91–114; RESP 18–21; TEMP 36.3–36.7; O2SAT 92–98
[2023-07-28 05:24] LABS: Basophils Percent Auto 0.2 % (0.2-2.0); Eosinophils Percent Auto 0.1 % (0.9-7.0); Hematocrit 41.2 % (42.0-54.0); Hemoglobin 12.9 g/dL (14.0-18.0); Immature Granulocytes Abs Auto 0.06 10^3/uL (0.00-0.03); Immature Granulocytes Pct Auto 0.5 % (0.0-0.5); Lymphocytes Absolute Auto 1.3 10^3/uL (1.2-3.8); Lymphocytes Percent Auto 10.9 % (20.5-60.0); Mean Corpuscular HGB Conc 31.3 g/dL (29.9-35.2); Mean Corpuscular Hemoglobin 31.8 pg (25.9-34.0); Mean Corpuscular Volume 101.5 fL (80.0-94.0); Mean Platelet Volume 10.9 fL (9.5-13.5); Monocytes Absolute Auto 0.7 10^3/uL (0.3-0.8); Monocytes Percent Auto 5.7 % (1.7-12.0); Neutrophils Absolute Auto 9.5 10^3/uL (1.4-6.5); Neutrophils Percent Auto 82.6 % (43.0-75.0); Platelet Count 264 10^3/uL (150-450); Red Blood Count 4.06 10^6/uL (4.70-6.10); Red Cell Distribution Width 12.7 % (11.0-15.0); White Blood Count 11.5 10^3/uL (4.0-11.0)
[2023-07-28 05:40] LABS: Erythrocyte Sedimentation Rate 108 mm/hr (<=20)
[2023-07-28 05:46] LABS: Alanine Aminotransferase 21 U/L (16-63); Albumin Globulin Ratio 0.6; Albumin Level 2.9 g/dL (3.4-5.0); Alkaline Phosphatase 64 U/L (46-116); Anion Gap 14.8; Aspartate Amino Transferase 10 U/L (15-37); BUN Creatinine Ratio 13.7; Bilirubin Total 0.6 mg/dL (0.2-1.0); Calcium 8.6 mg/dL (8.5-10.1); Carbon Dioxide 25.6 mmol/L (21.0-32.0); Chloride 103 mmol/L (98-107); Estimated GFR (African America 53 (>=60); Estimated GFR (Non-African Ame 44 (>=60); Globulin 4.5 g/dL; Glucose 122 mg/dL (74-106); Potassium 4.4 mmol/L (3.5-5.1); Sodium 139 mmol/L (136-145); Total Protein 7.4 g/dL (6.4-8.2)
[2023-07-28] MEDS: OMEPRAZOLE 40 MG CAPSULE.DR PO (05:58)
[2023-07-28] MEDS: PIPERACILLIN SODIUM/TAZOBACTAM 3.375 GM in 0.9 % SODIUM CHLORIDE 50 ML IV ×3 (05:58→23:30)
[2023-07-28] MEDS: ACETAMINOPHEN 500 MG TABLET 1000 MG PO (05:58)
--- NOTE | 2023-07-28 08:33 | PM.PN ---
Progress Note: Subjective Subjective Interval history: POD #1 for incision and drainage of left upper thigh abscess. Patient denies fevers, chills or chest pain nausea vomiting or diarrhea. Patient was started on IV vancomycin and Zosyn. Cultures showing MRSA but awaiting Sensitivities. Pain with dressing/packing changes today. I added some Percocet for pain control. Exam Narrative Exam Narrative: General: Patient is alert, and oriented to person, place and time with normal affect, proper hygiene Skin: area on the left upper thigh is demarcated, dressing is c/d/i Head: atraumatic, acephalic Eyes: PERRLA, no nystagmus present, conjunctiva clear, no scleral icterus Ears: normal gross auditory acuity Heart: Normal rate and irregular rhythm, no murmurs/rubs/gallops Lungs: no audible wheezes, crackles and normal breath sounds all lung jha Abdomen: Normal audible bowel sounds, no distension, No palpable masses, no organomegaly, no rebound/guarding/ or rigidity Neuro: CN II-X grossly intact Constitutional Vital Signs, click to edit/add: Last Vital Signs Temp 98.1 F 07/28/23 04:09 Pulse 93 H 07/28/23 04:09 Resp 18 07/28/23 04:09 BP 107/67 07/28/23 04:09 Pulse Ox 92 L 07/28/23 04:09 O2 Del Method Room Air 07/28/23 04:09 O2 Flow Rate 4 07/27/23 10:59 Progress Note: Objective Labs Labs: Short CBC 07/28/23 Range/Units 04:14 WBC 11.5 H (4.0-11.0) 10^3/uL Hgb 12.9 L (14.0-18.0) g/dL Hct 41.2 L (42.0-54.0) % Plt Count 264 (150-450) 10^3/uL BMP 07/28/23 04:14 Sodium 139 Potassium 4.4 Chloride 103 Carbon Dioxide 25.6 BUN 22.0 H Creatinine 1.61 H Glucose 122 H Calcium 8.6 Liver Function 07/28/23 Range/Units 04:14 Total Bilirubin 0.6 (0.2-1.0) mg/dL AST 10 L (15-37) U/L ALT 21 (16-63) U/L Alkaline Phosphatase 64 (46-116) U/L Albumin 2.9 L (3.4-5.0) g/dL Progress Note: A&P Assessment and Plan (1) Abscess of skin or subcutaneous tissue: Assessment and Plan: continue IV Zosyn and vancomycin. Status post incision and drainage. Awaiting wound culture sensitivities, so far MRSA Qualifiers: Laterality: left Site of cutaneous abscess of extremity: lower extremity (2) Hiatal hernia: Assessment and Plan: continue pantoprazole (3) A-fib: Assessment and Plan: continue amiodarone, diltiazem and eliquis (4) Hypertension: Assessment and Plan: stable continue home medications Plan patient is a full code Continue IV antibiotics until cultures resulted
[2023-07-28] MEDS: DILTIAZEM HCL 120 MG CAP.ER.24H PO (08:39)
[2023-07-28] MEDS: APIXABAN 5 MG TABLET PO ×2 (08:39→20:14)
[2023-07-28] MEDS: AMIODARONE HCL 200 MG TABLET PO ×2 (08:39→20:14)
[2023-07-28] MEDS: FUROSEMIDE 40 MG TABLET PO ×2 (08:39→20:14)
[2023-07-28] MEDS: OXYCODONE HCL/ACETAMINOPHEN 5MG/325MG 1 TAB PO ×2 (09:28→20:14)
--- NOTE | 2023-07-28 11:16 | PM.GSPN ---
Progress Note: A&P Assessment and Plan (1) Abscess of skin or subcutaneous tissue: Qualifiers: Laterality: left Site of cutaneous abscess of extremity: lower extremity (2) Hiatal hernia: (3) A-fib: (4) Hypertension: Plan recommend continued wound changes and packing changes daily until wound VAC can be obtained; hopefully wound care nurse can help facilitate that along with primary care. Will sign off. Subjective Subjective Patient reports: no new complaints and pain is less Interval history: dressing has been changed and redness of the left lower extremity is much better ninety percent improved. Exam Constitutional Vital Signs, click to edit/add: Last Vital Signs Temp 97.5 F L 07/28/23 08:00 Pulse 92 H 07/28/23 08:00 Resp 18 07/28/23 08:00 BP 142/83 H 07/28/23 08:00 Pulse Ox 95 07/28/23 10:01 O2 Del Method Room Air 07/28/23 10:01 O2 Flow Rate 4 07/27/23 10:59 Extremity Other: left lower extremity withh no erythema in the lower half and minimal in the groin area with a dressing in place. Ninety percent improved!
--- NOTE | 2023-07-28 23:36 | PC.NURSE ---
abd dressing saturated with sanguineous drainage. Abd dressing removed. 2 abd dressings applied to left thigh, covered with kerlex and ivone wrap.
[2023-07-29] VITALS (15 sets, daily range): BP systolic 89–160; BP diastolic 64–102; PULSE 79–110; RESP 16–20; TEMP 36.1–36.8; O2SAT 90–96
--- NOTE | 2023-07-29 02:13 | PC.NURSE ---
Dressing moved down leg. ivone wrap, kerlex, and abd dressings removed. 2 abd dressings folded in half, stacked on top of each other, kerlex and ivone wrap applied to left thigh.
[2023-07-29 05:34] LABS: Basophils Absolute Auto 0.1 10^3/uL (0.0-0.1); Basophils Percent Auto 0.5 % (0.2-2.0); Eosinophils Percent Auto 0.3 % (0.9-7.0); Hematocrit 42.8 % (42.0-54.0); Hemoglobin 13.2 g/dL (14.0-18.0); Immature Granulocytes Abs Auto 0.12 10^3/uL (0.00-0.03); Lymphocytes Absolute Auto 3.3 10^3/uL (1.2-3.8); Lymphocytes Percent Auto 28.1 % (20.5-60.0); Mean Corpuscular HGB Conc 30.8 g/dL (29.9-35.2); Mean Corpuscular Volume 103.6 fL (80.0-94.0); Mean Platelet Volume 10.9 fL (9.5-13.5); Monocytes Absolute Auto 0.8 10^3/uL (0.3-0.8); Monocytes Percent Auto 7.1 % (1.7-12.0); Neutrophils Absolute Auto 7.4 10^3/uL (1.4-6.5); Platelet Count 275 10^3/uL (150-450); Red Blood Count 4.13 10^6/uL (4.70-6.10); Red Cell Distribution Width 12.9 % (11.0-15.0); White Blood Count 11.8 10^3/uL (4.0-11.0)
[2023-07-29 05:38] LABS: Alanine Aminotransferase 23 U/L (16-63); Albumin Globulin Ratio 0.7; Albumin Level 3.1 g/dL (3.4-5.0); Alkaline Phosphatase 63 U/L (46-116); Anion Gap 17.8; Aspartate Amino Transferase 12 U/L (15-37); Bilirubin Total 0.5 mg/dL (0.2-1.0); Calcium 8.9 mg/dL (8.5-10.1); Carbon Dioxide 25.2 mmol/L (21.0-32.0); Chloride 102 mmol/L (98-107); Estimated GFR (African America 46 (>=60); Estimated GFR (Non-African Ame 38 (>=60); Globulin 4.7 g/dL; Glucose 100 mg/dL (74-106); Sodium 141 mmol/L (136-145); Total Protein 7.8 g/dL (6.4-8.2)
[2023-07-29 05:45] LABS: Erythrocyte Sedimentation Rate 95 mm/hr (<=20)
[2023-07-29] MEDS: OMEPRAZOLE 40 MG CAPSULE.DR PO (06:36)
[2023-07-29] MEDS: PIPERACILLIN SODIUM/TAZOBACTAM 3.375 GM in 0.9 % SODIUM CHLORIDE 50 ML IV (06:36)
[2023-07-29] MEDS: OXYCODONE HCL/ACETAMINOPHEN 5MG/325MG 1 TAB PO ×2 (07:21→19:58)
--- NOTE | 2023-07-29 07:45 | P.PN_ITS ---
Progress Note: Subjective Subjective Interval history: POD #2 for incision and drainage of left upper thigh abscess. Pain fairly well- controlled but patient having significant bleeding from wound. Reconsult to surgery Exam Constitutional Vital Signs, click to edit/add: Last Vital Signs Temp 97.0 F L 07/29/23 07:06 Pulse 85 07/29/23 07:06 Resp 18 07/29/23 07:25 BP 144/102 H 07/29/23 07:06 Pulse Ox 96 07/29/23 07:06 O2 Del Method Room Air 07/29/23 07:06 O2 Flow Rate 4 07/27/23 10:59 Documenting provider has reviewed patient's vital signs: yes Common normals: apparent distress (Moderate painful distress) HENMT Common normals: normocephalic Chest Common normals: inspection of chest normal Respiratory Common normals: normal respiratory effort and no retractions Cardio Common normals: regular rate; irregular rhythm Rhythm: abnormal rhythm GI Common normals: Normal to inspection, nondistended, normoactive bowel sounds present Extremity Common normals: abnormal to inspection (Left upper thigh with bandage in place with blood stained dressing) Progress Note: Objective Labs Labs: Short CBC 07/29/23 Range/Units 04:43 WBC 11.8 H (4.0-11.0) 10^3/uL Hgb 13.2 L (14.0-18.0) g/dL Hct 42.8 (42.0-54.0) % Plt Count 275 (150-450) 10^3/uL BMP 07/29/23 04:43 Sodium 141 Potassium 4.0 Chloride 102 Carbon Dioxide 25.2 BUN 22.0 H Creatinine 1.83 H Glucose 100 Calcium 8.9 Liver Function 07/29/23 Range/Units 04:43 Total Bilirubin 0.5 (0.2-1.0) mg/dL AST 12 L (15-37) U/L ALT 23 (16-63) U/L Alkaline Phosphatase 63 (46-116) U/L Albumin 3.1 L (3.4-5.0) g/dL Progress Note: A&P Assessment and Plan (1) Abscess of skin or subcutaneous tissue: Qualifiers: Laterality: left Site of cutaneous abscess of extremity: lower extremity (2) Hiatal hernia: (3) A-fib: (4) Hypertension: Plan Sinus tachycardia, respiratory distress, leukocytosis secondary to left upper inner thigh abscess -early phlegmon formation possible also on CT scan. MRSA on culture, change antibiotics to Levaquin and clindamycin. Final cultures from surgery 2 days ago are pending. Postoperative bleeding-reconsult to surgery, hold Eliquis for another couple of days. Hypertension-continue with home medications Atrial fibrillation-heart rate some some but not significant, with postoperative blood loss-will discontinue Eliquis for another couple days Chronic kidney disease stage III--elevated somewhat today, cut back on Lasix. 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 Medica lly necessary treatment spanning more than 2 midnights, status post surgical intervention: inpatient status. Patient needs probably 2 more days of IV antibiotics based on sensitivities and medications given
[2023-07-29] MEDS: DILTIAZEM HCL 120 MG CAP.ER.24H PO (09:31)
[2023-07-29] MEDS: AMIODARONE HCL 200 MG TABLET PO ×2 (09:31→19:59)
[2023-07-29] MEDS: CLINDAMYCIN PHOSPHATE/D5W 600 MG/50 ML PIGGYBACK 100 MG IV ×3 (09:32→20:02)
--- NOTE | 2023-07-29 10:07 | PHOTOS ---
left inner thigh
[2023-07-29] MEDS: LEVOFLOXACIN IN DEXTROSE 5 % 750 MG/150 ML IV.SOLN 100 MG IV (10:13)
--- NOTE | 2023-07-29 10:45 | W.PM.WC_ITS ---
Wound Consult Note Assessment and Plan (1) Abscess of skin or subcutaneous tissue: Reason for Consult: Left medial upper thigh wound Assessment and Plan: Patient underwent I&D with Dr. Dorantes on 07.27.2023 to his left medial upper thigh due to cellulitis. Area was opened and is draining bloody drainage. No odor noted. Overall cellulitis and induration is improving per patient. Bedside RN states that Dr. Dorantes has signed off and that he wanted a Wound VAC placed for assistance with healing. Wound consult placed to assist with getting a wound vac and for follow up outpatient. Patient very pleasant and verbalizes understanding with treatment plan as was explained by Dr. Dorantes. Bedside RN states that Dr. Fung was consulted due to the patient having increased bleeding from wound when restarted on eliquis due to afib. Bedside RN placed a pressure dressing to the area to assist with getting bleeding to stop. Drainage much more controlled. There is spotting on the gauze. Measurements taken. [id number]. No tunneling or undermining noted at this time. Beefy red wound base. Edges open. Patient has to stand and squat to get a good angle of the wound due to it's location. Patient states he does not think he would have anyone at home to assist with dressing changes. Explained to patient that home health care could do the wound VAC dressing changes or he could be an outpatient ASIF dressing change. Patient lives in [place]. Due to the [facility] wound center not being able to follow him post discharge due to physician availability for above the knee wounds, discussed care with Sravanthi, social science teacher. She will work on discharge planning that includes physician that can cover his wound location. Photos in chart. Please call [phone] with any questions or concerns. Jaya Sandoval, AYAZN, RN, CWON Qualifiers: Laterality: left Site of cutaneous abscess of extremity: lower extrem ity (2) Hiatal hernia: (3) A-fib: (4) Hypertension:
--- NOTE | 2023-07-29 12:14 | P.GSCN_ITS ---
History of Present Illness Consult details Narrative: Pt s/p I&D of L thigh wound 07/27/23. Resumed eliquis 07/27 and had extensive bleeding overnight per RN. Asked to exam wound for any emergent needs for possible hemostasis. Pt has no acute complaints currently. Denies being light headed or dizzy. Denies SOB. Denies any ongoing bleeding from the site since this am after a pressure dressing was applied. Only mild discomfort to the site upon palpation. PFSH PFS Medical History (Updated 07/26/23 @ 12:08 by Abida Coelho) Hiatal hernia ?K44.9 - Diaphragmatic hernia without obstruction or gangrene (ICD-10) Pericardial effusion ?I31.39 - Other pericardial effusion (noninflammatory) (ICD-10) A-fib ?I48.91 - Unspecified atrial fibrillation (ICD-10) Hypertension ?I10 - Essential (primary) hypertension (ICD-10) Surgical History Status post ablation of ventricular arrhythmia ?Z98.890 - Other specified postprocedural states (ICD-10) ?Z86.79 - Personal history of other diseases of the circulatory system (ICD- 10) S/P foot surgery, right ?Z98.890 - Other specified postprocedural states (ICD-10) H/O knee surgery ?Z98.890 - Other specified postprocedural states (ICD-10) Family History Father Family history of myocardial infarction Mother Family history of stroke Family history of hypertension Sister Family history of COPD (chronic obstructive pulmonary disease) Family history of hypertension Social History Within the past year, how often did you have a drink containing alcohol: monthly or less Within the past year, how often did you have six or more drinks on one occasion: never Smoking status: Never smoker Non-prescribed substance use: denies use 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 Highest level of school completed/degree received: Associate degree: academic program Are you now , , , , never or living with a partner: Little interest or pleasure in doing things: not at all Feeling down, depressed, or hopeless: not at all Feel stressed/tense/nervous/anxious/difficulty sleeping: not at all Meds Home Medications and Allergies Home Medications ?Medication ?Instructions ?Recorded ?Confirmed ?Type amiodarone 200 mg tablet 200 mg PO Q12H 07/26/23 07/26/23 History apixaban 5 mg tablet (Eliquis) 5 mg PO Q12H 07/26/23 07/26/23 History diclofenac sodium 75 mg 75 mg PO Q12H 07/26/23 07/26/23 History tablet,delayed release diltiazem HCl 120 mg 120 mg PO Q24H 07/26/23 07/26/23 History capsule,extended release 24 hr furosemide 40 mg tablet 40 mg PO Q12H 07/26/23 07/26/23 History pantoprazole 40 mg tablet,delayed 40 mg PO DAILY 07/26/23 07/26/23 History release Allergies Allergy/AdvReac Type Severity Reaction Status Date / Time No Known Drug Allergies Allergy Verified 07/26/23 09:14 Exam Constitutional Vital Signs, click to edit/add: Last Vital Signs Temp 97.4 F L 07/29/23 11:53 Pulse 89 07/29/23 11:53 Resp 18 07/29/23 11:53 BP 136/78 07/29/23 11:53 Pulse Ox 96 07/29/23 11:53 O2 Del Method Room Air 07/29/23 11:53 O2 Flow Rate 4 07/27/23 10:59 HENHI Common normals: normocephalic and moist oral mucous membranes Head and scalp: normal to inspection External ear: external ears normal GI Common normals: Normal to inspection, nondistended, normoactive bowel sounds present and soft to palpation Other: Left thigh I&D site with minimal to no surrounding erythema, no streaking, no active bleeding from the wound edges or wound itself, no oozing noted, no surrounding fluctuance Results Labs Labs: Abnormal lab results 07/29/23 Range/Units 04:43 WBC 11.8 H (4.0-11.0) 10^3/uL RBC 4.13 L (4.70-6.10) 10^6/uL Hgb 13.2 L (14.0-18.0) g/dL MCV 103.6 H (80.0-94.0) fL Eos % (Auto) 0.3 L (0.9-7.0) % Neut # (Auto) 7.4 H (1.4-6.5) 10^3/uL Abs Immat Gran (auto) 0.12 H (0.00-0.03) 10^3/uL Imm/Tot Granulo (auto) 1.0 H (0.0-0.5) % ESR 95 H (<=20) mm/hr BUN 22.0 H (7.0-18.0) mg/dL Creatinine 1.83 H (0.70-1.30) mg/dL Est GFR ( Amer) 46 L (>=60) Est GFR (Non-Af Amer) 38 L (>=60) AST 12 L (15-37) U/L Albumin 3.1 L (3.4-5.0) g/dL Diabetes panel 07/29/23 Range/Units 04:43 Sodium 141 (136-145) mmol/L Potassium 4.0 (3.5-5.1) mmol/L Chloride 102 (98-107) mmol/L Carbon Dioxide 25.2 (21.0-32.0) mmol/L BUN 22.0 H (7.0-18.0) mg/dL Creatinine 1.83 H (0.70-1.30) mg/dL Glucose 100 (74-106) mg/dL Calcium 8.9 (8.5-10.1) mg/dL AST 12 L (15-37) U/L ALT 23 (16-63) U/L Alkaline Phosphatase 63 (46-116) U/L Total Protein 7.8 (6.4-8.2) g/dL Albumin 3.1 L (3.4-5.0) g/dL Calcium panel 07/29/23 Range/Units 04:43 Calcium 8.9 (8.5-10.1) mg/dL Albumin 3.1 L (3.4-5.0) g/dL Pituitary panel 07/29/23 Range/Units 04:43 Sodium 141 (136-145) mmol/L Potassium 4.0 (3.5-5.1) mmol/L Chloride 102 (98-107) mmol/L Carbon Dioxide 25.2 (21.0-32.0) mmol/L BUN 22.0 H (7.0-18.0) mg/dL Creatinine 1.83 H (0.70-1.30) mg/dL Glucose 100 (74-106) mg/dL Calcium 8.9 (8.5-10.1) mg/dL Adrenal panel 07/29/23 Range/Units 04:43 Sodium 141 (136-145) mmol/L Potassium 4.0 (3.5-5.1) mmol/L Chloride 102 (98-107) mmol/L Carbon Dioxide 25.2 (21.0-32.0) mmol/L BUN 22.0 H (7.0-18.0) mg/dL Creatinine 1.83 H (0.70-1.30) mg/dL Glucose 100 (74-106) mg/dL Calcium 8.9 (8.5-10.1) mg/dL Total Bilirubin 0.5 (0.2-1.0) mg/dL AST 12 L (15-37) U/L ALT 23 (16-63) U/L Alkaline Phosphatase 63 (46-116) U/L Total Protein 7.8 (6.4-8.2) g/dL Albumin 3.1 L (3.4-5.0) g/dL All other labs normal. Assessment and Plan Assessment and Plan (1) Abscess of skin or subcutaneous tissue: Assessment and Plan: L thigh wound- No signs of active or acute bleeding. Continue pressure dressing. No need for urgent or emergent general surgery intervention. Defer continued management to the established surgeon. Pt to follow up with the established/ procedure performing surgeon. Qualifiers: Laterality: left Site of cutaneous abscess of extremity: lower extremity (2) Hiatal hernia: (3) A-fib: (4) Hypertension:
[2023-07-29 12:23] LABS: Hematocrit 41.9 % (42.0-54.0); Hemoglobin 13.2 g/dL (14.0-18.0); Mean Corpuscular HGB Conc 31.5 g/dL (29.9-35.2); Mean Corpuscular Hemoglobin 31.9 pg (25.9-34.0); Mean Corpuscular Volume 101.2 fL (80.0-94.0); Mean Platelet Volume 10.5 fL (9.5-13.5); Platelet Count 261 10^3/uL (150-450); Red Blood Count 4.14 10^6/uL (4.70-6.10); White Blood Count 10.9 10^3/uL (4.0-11.0)
--- NOTE | 2023-07-29 14:21 | SWNOTE1 ---
SW met with pt to discuss dc needs. Pt lives at home with his . SW and pt spoke about the wound vac. Fabiana at wound clinic spoke with SW and she is in agreement that wound vac would be beneficial. SUKUMAR also spoke to Dr. Fung who came to see pt. He voiced he only came to see pt due to urgent need due to bleeding. At this time he has deferred care to Dr. Dorantes who did original surgery. Pt voiced Dr. Dorantes did recommend wound vac. SUKUMAR has reached out to Dr. Guevara as well as will need following doctor in regards to wound vac. Waiting to hear back. Pt is open to going to [facility] outpt infusion clinic for vac changes. SW has message out to [facility].
--- NOTE | 2023-07-29 14:47 | DIETREC ---
Pt w/sx wound and infection. Recommend 30 mL PRO-stat BID and 1 packet Umesh BID to aid wound healing. Ordered by physician 07/29/23.
[2023-07-29] MEDS: PROSTAT 15 GM PROTEIN/100 CAL 30 ML LIQUID PACKET PO (20:01)
[2023-07-29] MEDS: JUVEN PACKET 1 PACKET PO (20:01)
[2023-07-30] VITALS (13 sets, daily range): BP systolic 98–133; BP diastolic 56–81; PULSE 82–122; RESP 16–18; TEMP 36.4–37.1; O2SAT 91–97; BMI 51.3
[2023-07-30] MEDS: CLINDAMYCIN PHOSPHATE/D5W 600 MG/50 ML PIGGYBACK 100 MG IV ×4 (02:04→21:32)
[2023-07-30 05:24] LABS: Basophils Absolute Auto 0.1 10^3/uL (0.0-0.1); Basophils Percent Auto 0.9 % (0.2-2.0); Eosinophils Absolute Auto 0.1 10^3/uL (0.0-0.7); Hematocrit 38.7 % (42.0-54.0); Hemoglobin 12.1 g/dL (14.0-18.0); Immature Granulocytes Abs Auto 0.11 10^3/uL (0.00-0.03); Immature Granulocytes Pct Auto 1.2 % (0.0-0.5); Lymphocytes Absolute Auto 3.3 10^3/uL (1.2-3.8); Mean Corpuscular HGB Conc 31.3 g/dL (29.9-35.2); Mean Corpuscular Volume 102.4 fL (80.0-94.0); Monocytes Absolute Auto 0.7 10^3/uL (0.3-0.8); Monocytes Percent Auto 7.9 % (1.7-12.0); Neutrophils Absolute Auto 5.1 10^3/uL (1.4-6.5); Platelet Count 227 10^3/uL (150-450); Red Blood Count 3.78 10^6/uL (4.70-6.10); Red Cell Distribution Width 12.9 % (11.0-15.0); White Blood Count 9.4 10^3/uL (4.0-11.0)
[2023-07-30] MEDS: OMEPRAZOLE 40 MG CAPSULE.DR PO (05:32)
[2023-07-30 05:42] LABS: Erythrocyte Sedimentation Rate 70 mm/hr (<=20)
[2023-07-30 06:16] LABS: Alanine Aminotransferase 18 U/L (16-63); Albumin Globulin Ratio 0.6; Albumin Level 2.7 g/dL (3.4-5.0); Alkaline Phosphatase 53 U/L (46-116); Anion Gap 13.5; Aspartate Amino Transferase 25 U/L (15-37); BUN Creatinine Ratio 18.8; Bilirubin Total 0.5 mg/dL (0.2-1.0); Calcium 8.7 mg/dL (8.5-10.1); Carbon Dioxide 22.7 mmol/L (21.0-32.0); Chloride 104 mmol/L (98-107); Estimated GFR (African America >60 (>=60); Estimated GFR (Non-African Ame 53 (>=60); Globulin 4.3 g/dL; Glucose 91 mg/dL (74-106); Potassium 4.2 mmol/L (3.5-5.1); Sodium 136 mmol/L (136-145)
[2023-07-30] MEDS: OXYCODONE HCL/ACETAMINOPHEN 5MG/325MG 1 TAB PO (08:42)
[2023-07-30] MEDS: AMIODARONE HCL 200 MG TABLET PO ×2 (08:42→20:20)
[2023-07-30] MEDS: DILTIAZEM HCL 120 MG CAP.ER.24H PO (08:42)
[2023-07-30] MEDS: PROSTAT 15 GM PROTEIN/100 CAL 30 ML LIQUID PACKET PO ×2 (08:42→20:20)
[2023-07-30] MEDS: JUVEN PACKET 1 PACKET PO ×2 (08:43→20:20)
--- NOTE | 2023-07-30 09:02 | P.PN_ITS ---
Progress Note: Subjective Subjective Interval history: POD #3 for incision and drainage of left upper thigh abscess. Pain still fairly well-controlled Exam Constitutional Vital Signs, click to edit/add: Last Vital Signs Temp 98.2 F 07/30/23 07:25 Pulse 91 H 07/30/23 08:42 Resp 16 07/30/23 07:27 BP 133/81 07/30/23 08:42 Pulse Ox 97 07/30/23 07:25 O2 Del Method Room Air 07/30/23 07:25 O2 Flow Rate 4 07/27/23 10:59 Documenting provider has reviewed patient's vital signs: yes Common normals: apparent distress (Moderate painful distress) HENMT Common normals: normocephalic Chest Common normals: inspection of chest normal Respiratory Common normals: normal respiratory effort and no retractions Cardio Common normals: regular rate; irregular rhythm Rhythm: abnormal rhythm GI Common normals: Normal to inspection, nondistended, normoactive bowel sounds present Extremity Common normals: abnormal to inspection (Left upper thigh with bandage in place - no bleeding) Progress Note: Objective Labs Labs: Short CBC 07/29/23 07/30/23 Range/Units 12:12 04:34 WBC 10.9 9.4 (4.0-11.0) 10^3/uL Hgb 13.2 L 12.1 L (14.0-18.0) g/dL Hct 41.9 L 38.7 L (42.0-54.0) % Plt Count 261 227 (150-450) 10^3/uL BMP 07/30/23 04:34 Sodium 136 Potassium 4.2 Chloride 104 Carbon Dioxide 22.7 BUN 26.0 H Creatinine 1.38 H Glucose 91 Calcium 8.7 Liver Function 07/30/23 Range/Units 04:34 Total Bilirubin 0.5 (0.2-1.0) mg/dL AST 25 (15-37) U/L ALT 18 (16-63) U/L Alkaline Phosphatase 53 (46-116) U/L Albumin 2.7 L (3.4-5.0) g/dL Progress Note: A&P Assessment and Plan (1) Abscess of skin or subcutaneous tissue: Qualifiers: Laterality: left Site of cutaneous abscess of extremity: lower extremity (2) Hiatal hernia: (3) A-fib: (4) Hypertension: Plan Sinus tachycardia, respiratory distress, leukocytosis secondary to left upper inner thigh abscess -early phlegmon formation possible also on CT scan. MRSA on culture, change antibiotics to Levaquin and clindamycin. Final cultures from surgery 2 days ago are the same, continue to hold Eliquis due to bleeding previous day Hypertension-continue with home medications Atrial fibrillation-heart rate some some but not significant, with postoperative blood loss-will discontinue Eliquis for another couple days Chronic kidney disease stage III--elevated somewhat today, cut back on Lasix. 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 Medically necessary treatment spanning more than 2 midnights, status post surgical intervention: inpatient status. Patient needs probably 1 more days of IV antibiotics based on sensitivities and medications given
[2023-07-30] MEDS: LEVOFLOXACIN IN DEXTROSE 5 % 750 MG/150 ML IV.SOLN 100 MG IV (09:31)
--- NOTE | 2023-07-30 09:35 | SWNOTE1 ---
SUKUMAR called [facility] and spoke to a nurse. They are able to complete dressing changes and place wound vac. He would come Saturday, Saturday, and Saturday. They would reach out to him to schedule appointment and let him know what to bring. They would just need wound vac order and face sheet. SUKUMAR to updated doctor.
--- NOTE | 2023-07-30 09:37 | SWNOTE1 ---
SUKUMAR sent Dr. Guevara the wound vac order to sign.
--- NOTE | 2023-07-30 14:25 | SWNOTE1 ---
SW sent signed wound vac roder, wound care ntoes, face sheet, and H&P to [facility]. SW sent wound vac order and face sheet to infusion center at [facility].
[2023-07-31 03:02] VITALS: BP 116/72; PULSE 88; RESP 20; TEMP 36.5; O2SAT 97
[2023-07-31] MEDS: CLINDAMYCIN PHOSPHATE/D5W 600 MG/50 ML PIGGYBACK 50 MG IV (03:53)
[2023-07-31] MEDS: OMEPRAZOLE 40 MG CAPSULE.DR PO (03:54)
[2023-07-31 04:56] VITALS: O2SAT 92
[2023-07-31 05:45] LABS: Basophils Absolute Auto 0.1 10^3/uL (0.0-0.1); Basophils Percent Auto 0.8 % (0.2-2.0); Eosinophils Absolute Auto 0.2 10^3/uL (0.0-0.7); Eosinophils Percent Auto 1.8 % (0.9-7.0); Hematocrit 38.4 % (42.0-54.0); Hemoglobin 12.1 g/dL (14.0-18.0); Immature Granulocytes Abs Auto 0.18 10^3/uL (0.00-0.03); Lymphocytes Absolute Auto 2.8 10^3/uL (1.2-3.8); Mean Corpuscular HGB Conc 31.5 g/dL (29.9-35.2); Mean Corpuscular Volume 101.6 fL (80.0-94.0); Mean Platelet Volume 10.6 fL (9.5-13.5); Monocytes Absolute Auto 0.8 10^3/uL (0.3-0.8); Monocytes Percent Auto 8.4 % (1.7-12.0); Neutrophils Absolute Auto 5.1 10^3/uL (1.4-6.5); Platelet Count 268 10^3/uL (150-450); Red Blood Count 3.78 10^6/uL (4.70-6.10); Red Cell Distribution Width 12.7 % (11.0-15.0); White Blood Count 9.1 10^3/uL (4.0-11.0)
[2023-07-31 06:03] LABS: Erythrocyte Sedimentation Rate 75 mm/hr (<=20)
[2023-07-31 06:26] LABS: Alanine Aminotransferase 18 U/L (16-63); Albumin Globulin Ratio 0.7; Albumin Level 2.9 g/dL (3.4-5.0); Alkaline Phosphatase 60 U/L (46-116); Anion Gap 15.5; Aspartate Amino Transferase 16 U/L (15-37); BUN Creatinine Ratio 18.2; Bilirubin Total 0.4 mg/dL (0.2-1.0); Carbon Dioxide 21.6 mmol/L (21.0-32.0); Chloride 104 mmol/L (98-107); Estimated GFR (African America >60 (>=60); Estimated GFR (Non-African Ame 53 (>=60); Globulin 4.2 g/dL; Glucose 102 mg/dL (74-106); Potassium 4.1 mmol/L (3.5-5.1); Sodium 137 mmol/L (136-145); Total Protein 7.1 g/dL (6.4-8.2)
[2023-07-31 08:00] VITALS: BP 120/62; PULSE 105; RESP 16; TEMP 36.4; O2SAT 96
[2023-07-31] MEDS: LEVOFLOXACIN IN DEXTROSE 5 % 750 MG/150 ML IV.SOLN 100 MG IV (08:08)
[2023-07-31 08:13] VITALS: BP 120/62
[2023-07-31] MEDS: PROSTAT 15 GM PROTEIN/100 CAL 30 ML LIQUID PACKET PO (08:13)
[2023-07-31] MEDS: JUVEN PACKET 1 PACKET PO (08:13)
[2023-07-31] MEDS: DILTIAZEM HCL 120 MG CAP.ER.24H PO (08:13)
--- NOTE | 2023-07-31 08:15 | P.DS_ITS ---
DS: Providers Provider Date of admission: 07/26/23 11:23 Primary care physician: Storm Guevara MD Consults: 07/26/23 11:20 Consult to General Surgeon Routine Consulting Provider: Jacques Dorantes Reason for consultation: left thigh cellulitis, early abscess Has provider been notified: Yes 07/27/23 10:20 Consult to Wound Care Routine Consulting Provider: Jaya Sandoval Reason for consultation: left medial thigh abscess Has provider been notified: No 07/29/23 07:12 Consult to Pharmacy Routine Consulting Provider: Reason for consultation: Did I D/C the vancomycin saturday? DS: Diagnosis Discharge Diagnosis (1) Abscess of skin or subcutaneous tissue: Qualifiers: Laterality: left Site of cutaneous abscess of extremity: lower extremity (2) Hiatal hernia: (3) A-fib: (4) Hypertension: Plan Sinus tachycardia, respiratory distress, leukocytosis secondary to left upper inner thigh abscess -early phlegmon formation possible also on CT scan. 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 Medically necessary treatment spanning more than 2 midnights, status post surgical intervention: inpatient status. Patient needs probably 1 more days of IV antibiotics based on sensitivities and medications given DS: Summary Hospital Course Hospital Course: Patient was seen and evaluated in the office. Over about a 24-hour period he had a significant increase in size of boil in left inguinal area. With the severity of his symptoms he was referred to ER for emergency CT scanning. Emergency CT scan showed phlegmon but not definite abscess. Patient is atrial fibrillation was anticoagulated with Eliquis. He was placed on IV antibiotics on admission. Cultures were obtained from the ER. He was taken to the operating room the following day for further debridement. Day 3 he did have issues with significant bleeding postoperatively. Holding his Eliquis and compression resolved that. Cultures confirmed MRSA both from the ER and from surgery. Sensitive to Levaquin and clindamycin will keep him on both in case there is other organisms creating the infection as well. Wound VAC to be placed and patient to be followed at wound clinic at [facility]. Patient has been medically stable. With much improvement in his pain. He will be discharged home in improving condition. Medications see list. Follow-up with me in the office early next week. Follow-up with wound clinic as already set up Time Spent with Patient Time attestation: Total time spent providing and/or coordinating discharge services: Exam Constitutional Vital Signs, click to edit/add: Last Vital Signs Temp 97.7 F 07/31/23 03:02 Pulse 88 07/31/23 03:02 Resp 20 07/31/23 03:02 BP 116/72 07/31/23 03:02 Pulse Ox 92 L 07/31/23 04:56 O2 Del Method Room Air 07/31/23 04:56 O2 Flow Rate 4 07/27/23 10:59 Documenting provider has reviewed patient's vital signs: yes Common normals: apparent distress (Moderate painful distress) HENMT Common normals: normocephalic Chest Common normals: inspection of chest normal Respiratory Common normals: normal respiratory effort and no retractions Cardio Common normals: regular rate; irregular rhythm Rhythm: abnormal rhythm GI Common normals: Normal to inspection, nondistended, normoactive bowel sounds present Extremity Common normals: abnormal to inspection (Left upper thigh with bandage in place - no bleeding) DS: Data Data Completed and Pending Labs on day of discharge: Labs from last 24 hours 07/31/23 04:54 WBC 9.1 RBC 3.78 L Hgb 12.1 L Hct 38.4 L MCV 101.6 H MCH 32.0 MCHC 31.5 RDW 12.7 Plt Count 268 MPV 10.6 Neut % (Auto) 56.0 Lymph % (Auto) 31.0 [place] % (Auto) 8.4 Eos % (Auto) 1.8 Baso % (Auto) 0.8 Neut # (Auto) 5.1 Lymph # (Auto) 2.8 [place] # (Auto) 0.8 Eos # (Auto) 0.2 Baso # (Auto) 0.1 Abs Immat Gran (auto) 0.18 H Imm/Tot Granulo (auto) 2.0 H ESR 75 H Sodium 137 Potassium 4.1 Chloride 104 Carbon Dioxide 21.6 Anion Gap 15.5 BUN 25.0 H Creatinine 1.37 H Est GFR ( Amer) >60 Est GFR (Non-Af Amer) 53 L BUN/Creatinine Ratio 18.2 Glucose 102 Calcium 9.0 Total Bilirubin 0.4 AST 16 ALT 18 Alkaline Phosphatase 60 Total Protein 7.1 Albumin 2.9 L Globulin 4.2 Albumin/Globulin Ratio 0.7 Preliminary micro results at discharge 07/26/23 10:00 - Preliminary Blood NO GROWTH AT 36-48 HOURS. FINAL TO FOLLOW. 07/26/23 09:55 Blood Culture Result 1 - Preliminary Blood NO GROWTH AT 36-48 HOURS. FINAL TO FOLLOW. Discharge Plan Discharge Disposition: Home, Self-Care Discharge Medications: New levofloxacin 750 mg tablet 750 mg PO DAILY Qty: 21 0RF clindamycin HCl [Cleocin HCl] 300 mg capsule 300 mg PO Q6H 21 Days Qty: 84 0RF Continued amiodarone 200 mg tablet 200 mg PO Q12H Eliquis 5 mg tablet 5 mg PO Q12H diltiazem HCl 120 mg capsule,extended release 24hr 120 mg PO Q24H furosemide 40 mg tablet 40 mg PO Q12H pantoprazole 40 mg tablet,delayed release (DR/EC) 40 mg PO DAILY Discontinued diclofenac sodium 75 mg tablet,delayed release (DR/EC) 75 mg PO Q12H Print Language: Omani Forms: Portal Instructions
[2023-07-31 08:16] VITALS: BP 120/65
[2023-07-31] MEDS: AMIODARONE HCL 200 MG TABLET PO (08:16)
--- NOTE | 2023-07-31 08:29 | CM.NOTE ---
Fax received from [facility] for additional information, sent additional information as requested for wound vac order.
[2023-07-31 09:32] VITALS: O2SAT 96
--- NOTE | 2023-07-31 10:48 | SWNOTE1 ---
SW spoke to [facility] home infusion and they would need an actual order with settings and dressing change 3x weekly. SW spoke to case management and order was signed. Order faxed to [facility].
--- NOTE | 2023-07-31 10:49 | SWNOTE1 ---
Pt's wound vac is approved, SW has message out to see when it will be delivered, waiting to hear back.
--- NOTE | 2023-07-31 12:33 | SWNOTE1 ---
SW called [facility] and checked on time of delivery for wound vac, they will call SUKUMAR back.
--- NOTE | 2023-07-31 14:57 | SWNOTE1 ---
Case management received phone call and [facility] could not get ahold of pt. SUKUMAR called pt's and her voicemail was full. SUKUMAR called pt and spoke to pt. He was able to talk to I and they are delivering wound vac tomorrow. SW let pt know SW will call [facility] and let them know when vac being delivered. SUKUMAR called [facility] infusion [facility] and let them know pt was discharged and wound vac being delivered tomorrow. They will contact pt tomorrow and set up time.
--- NOTE | 2023-08-01 16:06 | CM.DCFOLLOWU ---
Person spoke with: patient How are you feeling? well How is your pain? limited Did you understand your discharge instructions? yes Do you have any questions about your discharge instructions? no Were you given any prescriptions at discharge? yes Were you able to get your prescriptions filled? yes had an issue with one of them, but doctor's office assisted Do you understand how to take your medications as ordered? yes Do you have any questions about your follow up appointment and do you plan to keep your follow up appointment? no questions, set to see [facility] tomorrow for wound vac placement Is there anything else that you would like to discuss? no Questions/Comments/Concerns/Other: N/A
== END 2023-07-31 10:20 | disposition home or self-care (01) | DRG 603 ==
LOC: ER 11:02 → MS 11:24
PROVIDERS: Surgery; Admitting Provider Family Medicine; Emergency Provider Emergency Medicine; PCP Family Medicine; Visit Provider Family Medicine
PROC: 0H9JXZZ Drainage of Left Upper Leg Skin, External Approach (ICD-10-PCS; principal; 2023-07-27 10:00)
DX: L02.416 Cutaneous abscess of left lower limb (principal); Z68.43 Body mass index [BMI] 50.0-59.9, adult; L76.22 Postprocedural hemorrhage of skin and subcutaneous tissue following other procedure; K44.9 Diaphragmatic hernia without obstruction or gangrene; I48.91 Unspecified atrial fibrillation; R00.0 Tachycardia, unspecified; R06.03 Acute respiratory distress; I12.9 Hypertensive chronic kidney disease with stage 1 through stage 4 chronic kidney disease, or unspecified chronic kidney disease; E66.01 Morbid (severe) obesity due to excess calories; N18.30 Chronic kidney disease, stage 3 unspecified; L03.116 Cellulitis of left lower limb; B95.62 Methicillin resistant Staphylococcus aureus infection as the cause of diseases classified elsewhere; K21.9 Gastro-esophageal reflux disease without esophagitis; Z79.899 Other long term (current) drug therapy; Z79.01 Long term (current) use of anticoagulants; Z86.718 Personal history of other venous thrombosis and embolism; Z98.890 Other specified postprocedural states
CPT/HCPCS: 36415; 72192; 80053; 80202; 81003; 83605; 83735; 84145; 85025; 85027; 85652; 87040; 87070; 87075; 87150; 87186; 87205; 94667; 94668; 94761; 96365; 96366; 96367; 96368; 99285; 99999; J1094; J2704; J3370

== ENCOUNTER 2023-08-20 09:52 | Outpatient (OUT) | payer OTHER, SELFPAY ==
--- OUTSIDE RECORDS SUMMARY | 2023-08-20 10:17 | XMS_ITS | CCD ---
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 Care Department [employer] Name Role Phone DR COSTA GUEVARA Attending Unavailable DR COSTA GUEVARA Consulting Unavailable DR COSTA GUEVARA Admitting Unavailable MD Costa Guevara Primary Care Provider [phone] DO Bassem Lopez Emergency Provider DO Arturo Dolan Admit Provider DO Arturo Dolan Attending Provider MD Costa Guevara Primary Care Provider [phone] KENDRICK Mckinney Emergency Provider DOMINGO FERGUSON Attending Unavailable Costa Guevara MD Primary Care Provider [phone] Edwin Mckinney Admitting Unavailable Edwin Mckinney Attending Unavailable Costa Guevara Primary Care Unavailable Costa Guevara Attending Unavailable Costa Guevara Referring Unavailable Costa Guevara Admitting Unavailable Costa Guevara Primary Care Unavailable Costa Guevara Primary Care Unavailable Arturo Dolan Admitting UnavailArturo Tomlinson Attending UnavailConcepción Brian Consulting Unavailable Delvis Myles Consulting Unavailable Mony Orozco Consulting Unavailable Tejas Schreiber Consulting Unavail able Linh Paz Consulting Unavailable Anthony Rossi Consulting Unavailab Leigh Mehta Consulting Unavailable Sweta Colbert Consulting Unavailable Carrie [...] tablet Active 1 TAB PO Q6H 12 May 28, 2023 apixaban 5 mg oral [...] by mouth every six hours Hydrocodone-Acetaminop hen ([place]) 5-325 mg tablet Discontinued 1 TAB PO [...] 2 Receptor Anel Start: 05-24-19 End: 05-27-19 take 300 mg by mouth once daily Irbesartan Discontinued 300 MG PO Daily May 24, 2023 12:00am May 27, 2023 11:59am losartan potassium 50 mg oral tablet (3 sources) Angiotensin 2 Receptor Anel Start: 10-09-19 End: 05-24-19 take 50 mg by mouth once daily Losartan Discontinued 50 MG PO Daily October 08, 2019 11:00pm May 24, 2023 8:41pm meclizine hydrochloride 25 mg oral tablet (3 sources) Antiemetic Start: 09-04-19 End: 05-24-19 take 25 mg by mouth three times daily Meclizine Discontinued 25 MG PO Three times daily September 02, 2020 11:00pm May 24, 2023 8:43pm Problems Active Problems Problem Classification Problem Date Documented Date Episodic/Chronic Abdominal hernia (3 sources) Hiatal hernia; Translations: [Diaphragmatic hernia without obstruction or gangrene] 04-17-2023 Episodic Bacterial infection; unspecified site (11 sources) Bacteremia caused by Gram-positive bacteria; Translations: [Bacteremia] Onset: 05-24-2023 05-26-2023 Episodic Cardiac dysrhythmias (13 sources) Supraventricular tachycardia; Translations: [Supraventricular tachycardia] Onset: 05-24-2023 04-17-2023 Chronic Conditions associated with dizziness or vertigo (3 sources) Benign paroxysmal positional vertigo; Translations: [Benign paroxysmal vertigo, unspecified ear] 04-17-2023 Episodic Congestive heart failure; nonhypertensive (6 sources) Congestive heart failure; Translations: [Heart failure, unspecified] 04-17-2023 Chronic Diabetes mellitus without complication (8 sources) Prediabetes; Translations: [Prediabetes] Onset: 05-24-2023 04-17-2023 Episodic E Codes: Natural/environment (3 sources) Dog bite - wound; Translations: [Bitten by dog, initial encounter] 04-17-2023 Episodic Esophageal disorders (3 sources) Gastroesophageal reflux disease; Translations: [Gastro-esophageal reflux disease without esophagitis] 04-17-2023 Chronic Essential hypertension (8 sources) Benign hypertension; Translations: [Essential (primary) hypertension] Onset: 07-01-2023 04-17-2023 Chronic Lymphadenitis (4 sources) Localized enlarged [...] [Cellulitis, unspecified] 04-17-2023 Episodic Unclassified (1 source) Supraventricular tachycardia, unspecified; Translations: [Supraventricular tachycardia, unspecified] Onset: 07-01-2023 Unclassified (1 source) Pain in right foot; Translations: [Pain in right foot] Onset: 05-28-2023 Past or Other Problems Problem Classification Problem Date Documented Date Episodic/Chronic Unclassified (1 source) Supraventricular tachycardia, unspecified; Translations: [Supraventricular tachycardia, unspecified] Onset: 07-01-2023 Results Test Name Value Interpretation Reference Range Facility Multiple labson 07-31-2023 [facility] NURSNOTEon 07-29-2023 NURSNOTE Tejas Ray called s taring he is scheduled for a Cardioversion on Saturday07/31/[address] Cat. Stated he currently in [facility] with a leg infected cyst of the leg that he had surgery on to drain. Eliquis was stopped due to bleeding. Dr Cat was notified. Procedure to be cancelled for 07/31/23. Mr Ray will be seen in [facility] by Dr Cat on 08/20/23. [facility] Office Visiton 07-01-2023 Follow-up visit [id number] Hua Ray 1965 M Date Provider Department Center 07/01/2023 DOMINGO BARRAZA Family History Problem Relation Age of Onset Stroke Mother Family Status - Relation Status Age at Mother Level of Service:05186 MO OFFICE/OUTPATIENT NEW MODERATE MDM 45 MINUTES Normal [facility] US venous duplex LE RTon US venous duplex LE RT [facility] [place] [address] Ultrasound Report Signed Patient: Tejas Ray MR#: [id number] 0 : 1965 Acct:[id number] Age/Sex: 58 / M ADM Date: 05/28/23 Loc: ER Room: Type: [facility] ER Attending Dr: Ordering Provider: Edwin Mckinney [...] Kulwinder Ma M.D.05/29/2023 9:08 AM Dictation Location: [facility] Tech: Kendra Chaves Transcribed By: DARLING 05/29/23 0908 Dictated By: Kulwinder Ma MD 05/29/23 0907 Signed By: 05/29/23 0908 Normal [facility] Activated partial thrombopla stin time (aPTT) in platelet poor plasma by coagulation aOrdered By: Edwin Mckinney on 05-28-2023 aPTT Coag (PPP) [Time] 35.7 s 25.1-36.5 [facility] Comment on above: A hematocrit value g reater than 55% may lead to inaccurate results in coagulation testing. Patients having hematocrit values >55% require a special collection tube for coagulation studies. Please contact the laboratory at [phone] for redraw instructions. Alanine aminotransferase [En zymatic activity/volume] in Serum or PlasmaOrdered By: Edwin Mckinney on 05-28-2023 ALT [Catalytic activity/Vol] 29 U/L 7-52 [facility] Albumin [Mass/volume] in Ser um or Plasma by Bromocresol green (BCG) dye binding methoOrdered By: Edwin Mckinney on 05-28-2023 Albumin BCG dye [Mass/Vol] 4.3 g/dL 3.5-5.7 [facility] Alkaline phosphatase [Enzyma tic activity/volume] in Serum or PlasmaOrdered By: Edwin Mckinney on 05-28-2023 ALP [Catalytic activity/Vol] 73 U/L 34-104 [facility] Aspartate aminotransferase [ Enzymatic activity/volume] in Serum or PlasmaOrdered By: Edwin Mckinney on 05-28-2023 AST [Catalytic activity/Vol] 18 U/L 13-39 [facility] Basic Metabolic Panelon 05-07 Anion gap [Moles/Vol] 10.2 mmol/L Normal 6.0-15.0 [facility] Comment on above: Performed By: #### P TT, PT, BMP, HEPATIC #### [facility] [address] [place] [address] [place] Calcium [Mass/Vol] 9.2 mg/dL Normal 8.6-10.3 [facility] Comment on above: Performed By: #### P TT, PT, BMP, HEPATIC #### [facility] [address] [place] [id number] [place] Chloride [Moles/Vol] 102 mmol/L Normal 98-107 [facility] Comment on above: Performed By: #### P TT, PT, BMP, HEPATIC #### [facility] [address] [place] [id number] [place] CO2 [Moles/Vol] 30.9 mmol/L Normal 21.0-31.0 [facility] Comment on above: Performed By: #### P TT, PT, BMP, HEPATIC #### [facility] [address] Creatinine [Mass/Vol] 1.40 mg/dL High 0.70-1.30 [facility] Comment on above: Performed By: #### P TT, PT, BMP, HEPATIC #### [facility] [address] [place] [address] [place] Creatinine Clr Calc Pharmacy 73.58 Normal [facility] Comment on above: Result Comment: PERF ORMED BY: [place] [address] PATHOLOGIST ROUTE SERVICE MANAGER ROBERTO OCAMPO M.D. Performed By: #### P TT, PT, BMP, HEPATIC #### [place] [address] [place] GFR/1.73 sq M.predicted MDRD (S/P/Bld) [Vol rate/Area] 57.540 mL/min/{1.73_m2} Normal [facility] Comment on above: Performed By: #### P TT, PT, BMP, HEPATIC #### [address] Glucose [Mass/Vol] 97 mg/dL Normal 70-100 [facility] Comment on above: Result Comment: [place] om Glucose Reference Range is dependent on time and content of last meal. Glucose of more than 200 mg/dL in a nonstressed, ambulatory subject supports the diagnosis of Diabetes Mellitus. ADA recommended reference range Performed By: #### P TT, PT, BMP, HEPATIC #### [facility] [address] [place] [address] [place] Potassium [Moles/Vol] 4.1 mmol/L Normal 3.5-5.1 [facility] Comment on above: Performed By: #### P TT, PT, BMP, HEPATIC #### [facility] [address] [place] [address] [place] Sodium [Moles/Vol] 139 mmol/L Normal 136-145 [facility] Comment on above: Performed By: #### P TT, PT, BMP, HEPATIC #### [facility] [address] Urea nitrogen [Mass/Vol] 24 mg/dL Normal 7-25 [facility] Comment on above: Performed By: #### P TT, PT, BMP, HEPATIC #### [facility] [address] Basophils Auto (Bld) [#/Vol] Ordered By: Edwin Mckinney on 05-28-2023 Basophils (Bld) [#/Vol] 0.1 10*3/uL 0.0-0.2 [facility] Basophils/100 WBC Auto (Bld) Ordered By: Edwin Mckinney on 05-28-2023 Basophils/100 WBC (Bld) 0.6 % . [facility] Bilirubin.direct [Mass/volum e] in Serum or PlasmaOrdered By: Edwin Mckinney on 05-28-2023 Bilirubin.direct [Mass/Vol] 0.20 mg/dL 0.03-0.18 [facility] Bilirubin.total [Mass/volume ] in Serum or PlasmaOrdered By: Edwin Mckinney on 05-28-2023 Bilirubin [Mass/Vol] 1.0 mg/dL 0.3-1.0 [facility] Calcium [Mass/volume] in Ser um or PlasmaOrdered By: Edwin Mckinney on 05-28-2023 Calcium [Mass/Vol] 9.2 mg/dL 8.6-10.3 [facility] Carbon dioxide, total [Moles /volume] in Serum or PlasmaOrdered By: Edwin Mckinney on 05-28-2023 CO2 [Moles/Vol] 30.9 mmol/L 21.0-31.0 [facility] Chloride [Moles/volume] in S rafy or PlasmaOrdered By: Edwin Mckinney on 05-28-2023 Chloride [Moles/Vol] 102 mmol/L 98-107 [facility] Complete Blood Count Auto Di ffon 05-28-2023 Basophils (Bld) [#/Vol] 0.1 10*3/uL Normal 0.0-0.2 [facility] Comment on above: Result Comment: PERF ORMED BY: [place] [address] PATHOLOGIST ROUTE SERVICE MANAGER ROBERTO OCAMPO M.D. Performed By: #### C BC #### [address] Basophils/100 WBC (Bld) 0.6 % Normal . [facility] Comment on above: Performed By: #### C BC #### [address] Eosinophils (Bld) [#/Vol] 0.3 10*3/uL Normal 0.0-0.45 [facility] Comment on above: Performed By: #### C BC #### [address] Eosinophils/100 WBC (Bld) 2.1 % Normal . [facility] Comment on above: Performed By: #### C BC #### [address] Erythrocyte distribution width (RBC) [Ratio] 14.0 % Normal 12.0-14.8 [facility] Comment on above: Performed By: #### C BC #### [address] Hematocrit (Bld) [Volume fraction] 42.1 % Normal 38.8-50.0 [facility] Comment on above: Performed By: #### C BC #### [address] Hemoglobin (Bld) [Mass/Vol] 14.1 g/dL Normal 13.0-17.0 [facility] Comment on above: Performed By: #### C BC #### [place] [address] [place] Lymphocytes (Bld) [#/Vol] 1.8 10*3/uL Normal 1.00-4.8 [facility] Comment on above: Performed By: #### C BC #### [address] Lymphocytes/100 WBC (Bld) 14.6 % Normal . [facility] Comment on above: Performed By: #### C BC #### [facility] [address] MCH (RBC) [Entitic mass] 32.6 pg Normal 27.5-35.2 [facility] Comment on above: Performed By: #### C BC #### [facility] [address] [place] [id number] [facility] MCV (RBC) [Entitic vol] 97.3 fL Normal 83.5-101 [facility] Comment on above: Performed By: #### C BC #### [facility] [address] Mean Corpuscular HGB Conc 33.5 g/dL Normal 32.5-35.6 [facility] Comment on above: Performed By: #### C BC #### [facility] [address] Monocytes (Bld) [#/Vol] 1.1 10*3/uL High 0.0-0.8 [facility] Comment on above: Performed By: #### C BC #### [facility] [address] [place] [address] [place] Monocytes/100 WBC (Bld) 21.69 % High 0.00-20.00 [facility] Comment on above: Result Comment: For adults in ED, MDW > 20.0 may be associated with a higher risk of sepsis during the first 12 hrs of hospital admission Performed By: #### C BC #### [facility] [address] [place] [address] [place] Monocytes/100 WBC (Bld) 8.7 % Normal . [facility] Comment on above: Performed By: #### C BC #### [facility] [address] [place] [address] [place] Neutrophils (Bld) [#/Vol] 9.2 10*3/uL High 1.8-7.7 [facility] Comment on above: Performed By: #### C BC #### [facility] [address] [place] [address] [place] Neutrophils/100 WBC (Bld) 74.0 % Normal . [facility] Comment on above: Performed By: #### C BC #### [facility] [address] [place] [address] [place] NRBC% 0.1 /100{WBC} Normal 0-0.5 [facility] Comment on above: Performed By: #### C BC #### [facility] [address] Platelet mean volume (Bld) [Entitic vol] 9.3 fL Normal 6.6-10.1 [facility] Comment on above: Performed By: #### C BC #### [facility] [address] Platelets (Bld) [#/Vol] 296 10*3/uL Normal 150-450 [facility] Comment on above: Performed By: #### C BC #### [facility] [address] RBC (Bld) [#/Vol] 4.32 10*6/uL Normal 3.90-5.60 [facility] Comment on above: Performed By: #### C BC #### [facility] [address] WBC (Bld) [#/Vol] 12.5 10*3/uL High 4.1-10.5 [facility] Comment on above: Performed By: #### C BC #### [address] Creatinine [Mass/volume] in Serum or PlasmaOrdered By: Edwin Mckinney on 05-28-2023 Creatinine [Mass/Vol] 1.40 mg/dL 0.70-1.30 [facility] ECG 12 lead ECGon 05-28-2023 ECG 12 lead ECG [facility] [place] [address] [place] [address] Electrocardiograph Report Signed Patient: Tejas Ray MR#: [id number] 0 : 1965 Acct:[id number] Age/Sex: 58 / M ADM Date: 05/28/23 Loc: ER Room: Type: [facility] ER Attending Dr: Ordering Provider: Edwin Mckinney [...] was found Confirmed by KENIA WILSON DO ([id number]) on 05/28/2023 3:02:52 PM Referred By: Electronically Signed By:KENIA WILSON DO Transcribed By: MUS Signed By Kenia Wilson DO 05/28 1503 Normal [facility] Eosinophils Auto (Bld) [#/Vo l]Ordered By: Edwin Mckinney on 05-28-2023 Eosinophils (Bld) [#/Vol] 0.3 10*3/uL 0.0-0.45 [facility] Eosinophils/100 WBC Auto (Bl d)Ordered By: Edwin Mckinney on 05-28-2023 Eosinophils/100 WBC (Bld) 2.1 % . [facility] Erythrocyte distribution wid th Auto (RBC) [Ratio]Ordered By: Edwin Mckinney on 05-28-2023 Erythrocyte distribution width (RBC) [Ratio] 14.0 % 12.0-14.8 [facility] Globulin Calc (S) [Mass/Vol] Ordered By: Edwin Mckinney on 05-28-2023 Globulin (S) [Mass/Vol] 4.2 g/dL [facility] Glucose [Mass/volume] in Ser um or PlasmaOrdered By: Edwin Mckineny on 05-28-2023 Glucose [Mass/Vol] 97 mg/dL 70-100 [facility] Comment on above: ADA recommended refe rence rangeRandom Glucose Reference Range is dependent on time and content of last meal. Glucose of more than 200 mg/dL in a nonstressed, ambulatory subject supports the diagnosis of Diabetes Mellitus. Hematocrit Auto (Bld) [Volum e fraction]Ordered By: Edwin Mckinney on 05-28-2023 Hematocrit (Bld) [Volume fraction] 42.1 % 38.8-50.0 [facility] Hemoglobin [Mass/volume] in BloodOrdered By: Edwin Mckinney on 05-28-2023 Hemoglobin (Bld) [Mass/Vol] 14.1 g/dL 13.0-17.0 [facility] Hepatic Panelon 05-28-2023 Albumin [Mass/Vol] 4.3 g/dL Normal 3.5-5.7 [facility] Comment on above: Performed By: #### P TT, PT, BMP, HEPATIC #### [facility] [address] Albumin/Globulin [Mass ratio] 1.0 {ratio} Normal [facility] Comment on above: Performed By: #### P TT, PT, BMP, HEPATIC #### [facility] [address] [place] [address] ALP [Catalytic activity/Vol] 73 U/L Normal 34-104 [facility] Comment on above: Performed By: #### P TT, PT, BMP, HEPATIC #### [facility] [address] [place] [address] [place] ALT [Catalytic activity/Vol] 29 U/L Normal 7-52 [facility] Comment on above: Performed By: #### P TT, PT, BMP, HEPATIC #### [facility] [address] [place], [place] [id number] [place] AST [Catalytic activity/Vol] 18 U/L Normal 13-39 [facility] Comment on above: Performed By: #### P TT, PT, BMP, HEPATIC #### [facility] [address] [place] [id number] [place] Bilirubin [Mass/Vol] 1.0 mg/dL Normal 0.3-1.0 [facility] Comment on above: Performed By: #### P TT, PT, BMP, HEPATIC #### [facility] [address] [place], [place] [id number] [place] Bilirubin,Indirect 0.8 mg/dL Normal [facility] Comment on above: Performed By: #### P TT, PT, BMP, HEPATIC #### [facility] [address] [place] [address] [place] Bilirubin.indirect [Mass/Vol] 0.20 mg/dL High 0.03-0.18 [facility] Comment on above: Performed By: #### P TT, PT, BMP, HEPATIC #### [facility] [address] [place] [id number] [place] Globulin (S) [Mass/Vol] 4.2 g/dL Normal [facility] Comment on above: Performed By: #### P TT, PT, BMP, HEPATIC #### [facility] [address] [place] [id number] [place] Protein [Mass/Vol] 8.5 g/dL Normal 6.4-8.9 [facility] Comment on above: Performed By: #### P TT, PT, BMP, HEPATIC #### [facility] [address] [place] [address] [place] INR in Platelet poor plasma by Coagulation assayOrdered By: Edwin Mckinney on 05-28-2023 INR Coag (PPP) [Relative time] 1.4 {INR} [facility] Comment on above: INR Therapeutic Rang e [...] RBC Auto (Bld) [#/Vol] 12.5 10*3/uL 4.1-10.5 [facility] Lymphocytes Auto (Bld) [#/Vo l]Ordered By: Edwin Mckinney on 05-28-2023 Lymphocytes (Bld) [#/Vol] 1.8 10*3/uL 1.00-4.8 [facility] Lymphocytes/100 WBC Auto (Bl d)Ordered By: Edwin Mckinney on 05-28-2023 Lymphocytes/100 WBC (Bld) 14.6 % . [facility] MCH Auto (RBC) [Entitic mass ]Ordered By: Edwin Mckinney on 05-28-2023 MCH (RBC) [Entitic mass] 32.6 pg 27.5-35.2 [facility] MCHC Auto (RBC) [Mass/Vol]Or dered By: Edwin Mckinney on 05-28-2023 MCHC (RBC) [Mass/Vol] 33.5 g/dL 32.5-35.6 [facility] MCV Auto (RBC) [Entitic vol] Ordered By: Edwin Mckinney on 05-28-2023 MCV (RBC) [Entitic vol] 97.3 fL 83.5-101 [facility] Monocyte distribution width [Entitic volume] in Blood by AutomatedOrdered By: Edwin Mckinney on 05-28-2023 Monocyte distribution width Auto (Bld) [Entitic vol] 21.69 % 0.00-20.00 [facility] Comment on above: For adults in ED, MD W > 20.0 may be associated with a higher risk of sepsis during the first 12 hrs of hospital admission Monocytes Auto (Bld) [#/Vol] Ordered By: Edwin Mckinney on 05-28-2023 Monocytes (Bld) [#/Vol] 1.1 10*3/uL 0.0-0.8 [facility] Monocytes/100 WBC Auto (Bld) Ordered By: Edwin Mckinney on 05-28-2023 Monocytes/100 WBC (Bld) 8.7 % . [facility] Neutrophils Auto (Bld) [#/Vo l]Ordered By: Edwin Mckinney on 05-28-2023 Neutrophils (Bld) [#/Vol] 9.2 10*3/uL 1.8-7.7 [facility] Neutrophils/100 WBC Auto (Bl d)Ordered By: Edwin Mckinney on 05-28-2023 Neutrophils/100 WBC (Bld) 74.0 % . [facility] No Panel InformationOrdered By: Edwin Mckinney on 05-28-2023 Estimated GFR (CKD-EPI) 57.540 mL/Min [facility] Creatinine Clearance (Chem 73.58 [facility] Nucleated erythrocytes [Pres ence] in Blood by Automated countOrdered By: Edwin Mckinney on 01-23-2024 Nucleated RBC Auto Ql (Bld) 0.1 /100{WBC} 0-0.5 [facility] Partial Thromboplastin Timeo n 05-28-2023 aPTT Coag (Bld) [Time] 35.7 s Normal 25.1-36.5 [facility] Comment on above: Result Comment: A he matocrit value greater than 55% may lead to inaccurate results in coagulation testing. Patients having hematocrit values >55% require a special collection tube for coagulation studies. Please contact the laboratory at [phone] for redraw instructions. PERFORMED BY: [place] [address] PATHOLOGIST ROUTE SERVICE MANAGER ROBERTO OCAMPO M.D. Performed By: #### P TT, PT, BMP, HEPATIC #### [address] Platelet mean volume Auto (B ld) [Entitic vol]Ordered By: Edwin Mckinney on 05-28-2023 Platelet mean volume (Bld) [Entitic vol] 9.3 fL 6.6-10.1 [facility] Platelets Auto (Bld) [#/Vol] Ordered By: Edwin Mckinney on 05-28-2023 Platelets (Bld) [#/Vol] 296 10*3/uL 150-450 [facility] Potassium [Moles/volume] in Serum or PlasmaOrdered By: Edwin Mckinney on 05-28-2023 Potassium [Moles/Vol] 4.1 mmol/L 3.5-5.1 [facility] Protein [Mass/volume] in Ser um or PlasmaOrdered By: Edwin Mckinney on 05-28-2023 Protein [Mass/Vol] 8.5 g/dL 6.4-8.9 [facility] Prothrombin Time INRon 05-28 INR Coag (PPP) [Relative time] 1.4 {INR} Normal [facility] Comment on above: Result Comment: INR Therapeutic [...] - 4.5 Performed By: #### P TT, PT, BMP, HEPATIC #### [facility] [address] [place] [id number] [facility] PT Coag (PPP) [Time] 16.2 s High 9.0-12.9 [facility] Comment on above: Result Comment: A he matocrit value greater than 55% may lead to inaccurate results in coagulation testing. Patients having hematocrit values >55% require a special collection tube for coagulation studies. Please contact the laboratory at [phone] for redraw instructions. Performed By: #### P TT, PT, BMP, HEPATIC #### [facility] [address] [place] [address] [facility] Prothrombin time (PT)Ordered By: Edwin Mckinney on 05-28-2023 PT Coag (PPP) [Time] 16.2 s 9.0-12.9 [facility] Comment on above: A hematocrit value g reater than 55% may lead to inaccurate results in coagulation testing. Patients having hematocrit values >55% require a special collection tube for coagulation studies. Please contact the laboratory at [phone] for redraw instructions. RBC Auto (Bld) [#/Vol]Ordere d By: Edwin Mckinney on 05-28-2023 RBC (Bld) [#/Vol] 4.32 10*6/uL 3.90-5.60 [facility] Serum or plasma albumin/glob ulin mass ratioOrdered By: Edwin Mckinney on 05-28-2023 Albumin/Globulin [Mass ratio] 1.0 {ratio} [facility] Serum or plasma anion gap de terminationOrdered By: Edwin Mckinney on 05-28-2023 Anion gap [Moles/Vol] 10.2 mmol/L 6.0-15.0 [facility] Serum or plasma non-glucuron idated bilirubin measurement (mass/volume)Ordered By: Edwin Mckinney on 05-28-2023 Bilirubin.indirect [Mass/Vol] 0.8 mg/dL [facility] Sodium [Moles/volume] in Ser um or PlasmaOrdered By: Edwin Mckinney on 05-28-2023 Sodium [Moles/Vol] 139 mmol/L 136-145 [facility] Urea nitrogen [Mass/volume] in Serum or PlasmaOrdered By: Edwin Mckinney on 05-28-2023 Urea nitrogen [Mass/Vol] 24 mg/dL 11-27 [facility] WBC Auto (Bld) [#/Vol]Ordere d By: Edwin Mckinney on 05-28-2023 WBC (Bld) [#/Vol] 12.5 10*3/uL 4.1-10.5 [facility] XR chest 1V portableon 05-28 XR chest 1V portable [facility] Main [address] [address] XRay Report Signed Patient: Tejas Ray MR#: [id number] 0 : 1965 Acct:[id number] Age/Sex: 58 / M ADM Date: 05/28/23 Loc: ER Room: Type: [facility] ER Attending Dr: Copies to: Edwin Mckinney [...] Kulwinder Miller M.D.05/28/2023 2:32 PM Dictation Location: [place] [address] Transcribed By: [facility] 05/28/23 143 Dictated By: Kulwinder Miller DO 05/28/23 1432 Signed By: 05/28/23 1432 Normal [facility] XR foot RT min 3V*on 024 XR foot RT min 3V* [facility] [place] [address] XRay Report Signed Patient: Tejas Ray MR#: [id number] 0 : 1965 Acct:[id number] Age/Sex: 58 / M ADM Date: 05/28/23 Loc: ER Room: Type: [facility] ER Attending Dr: Copies to: Edwin Mckinney [...] Kulwinder Miller M.D.05/28/2023 2:56 PM Dictation Location: [place] [address] Transcribed By: [facility] 05/28/23 1456 Dictated By: Kulwinder Miller DO 05/28/23 1453 Signed By: 05/28/23 145 Normal [facility] Basic Metabolic Panelon 05-07 Anion gap [Moles/Vol] 10.9 mmol/L Normal 6.0-15.0 [facility] Comment on above: Performed By: #### C BC, BMP #### [place] [address] [place] Calcium [Mass/Vol] 8.7 mg/dL Normal 8.6-10.3 [facility] Comment on above: Performed By: #### C BC, BMP #### [address] Chloride [Moles/Vol] 106 mmol/L Normal 98-107 [facility] Comment on above: Performed By: #### C BC, BMP #### [place] [address] [place] CO2 [Moles/Vol] 25.9 mmol/L Normal 21.0-31.0 [facility] Comment on above: Performed By: #### C BC, BMP #### [address] Creatinine [Mass/Vol] 1.40 mg/dL High 0.70-1.30 [facility] Comment on above: Performed By: #### C BC, BMP #### [address] Creatinine Clr Calc Pharmacy 76.19 Normal [facility] Comment on above: Result Comment: PERF ORMED BY: [place] [address] PATHOLOGIST ROUTE SERVICE MANAGER ROBERTO OCAMPO M.D. Performed By: #### C BC, BMP #### [address] GFR/1.73 sq M.predicted MDRD (S/P/Bld) [Vol rate/Area] 57.540 mL/min/{1.73_m2} Normal [facility] Comment on above: Performed By: #### C BC, BMP #### [address] Glucose [Mass/Vol] 95 mg/dL Normal 70-100 [facility] Comment on above: Result Comment: [place] Glucose Reference Range is dependent on time and content of last meal. Glucose of more than 200 mg/dL in a nonstressed, ambulatory subject supports the diagnosis of Diabetes Mellitus. ADA recommended reference range Performed By: #### C BC, BMP #### [address] Potassium [Moles/Vol] 3.8 mmol/L Normal 3.5-5.1 [facility] Comment on above: Performed By: #### C BC, BMP #### [address] Sodium [Moles/Vol] 139 mmol/L Normal 136-145 [facility] Comment on above: Performed By: #### C BC, BMP #### [address] Urea nitrogen [Mass/Vol] 32 mg/dL High 7-25 [facility] Comment on above: Performed By: #### C BC, BMP #### [address] Complete Blood Count Auto Di ffon 05-27-2023 Basophils (Bld) [#/Vol] 0.1 10*3/uL Normal 0.0-0.2 [facility] Comment on above: Result Comment: PERF ORMED BY: [place] [address] PATHOLOGIST [employer]OUTE SERVICE MANAGER ROBERTO OCAMPO M.D. Performed By: #### C NOMAN, BMP #### [address] Basophils/100 WBC (Bld) 0.8 % Normal . [facility] Comment on above: Performed By: #### C NOMAN, BMP #### [address] Eosinophils (Bld) [#/Vol] 0.1 10*3/uL Normal 0.0-0.45 [facility] Comment on above: Performed By: #### C NOMAN, BMP #### [address] Eosinophils/100 WBC (Bld) 0.8 % Normal . [facility] Comment on above: Performed By: #### C BC, BMP #### [address] Erythrocyte distribution width (RBC) [Ratio] 14.3 % Normal 12.0-14.8 [facility] Comment on above: Performed By: #### C BC, BMP #### [address] Hematocrit (Bld) [Volume fraction] 39.1 % Normal 38.8-50.0 [facility] Comment on above: Performed By: #### C BC, BMP #### [address] Hemoglobin (Bld) [Mass/Vol] 13.1 g/dL Normal 13.0-17.0 [facility] Comment on above: Performed By: #### C BC, BMP #### [address] Lymphocytes (Bld) [#/Vol] 3.2 10*3/uL Normal 1.00-4.8 [facility] Comment on above: Performed By: #### C BC, BMP #### [address] Lymphocytes/100 WBC (Bld) 27.1 % Normal . [facility] Comment on above: Performed By: #### C BC, BMP #### [address] MCH (RBC) [Entitic mass] 32.8 pg Normal 27.5-35.2 [facility] Comment on above: Performed By: #### C BC, BMP #### [address] MCV (RBC) [Entitic vol] 97.9 fL Normal 83.5-101 [facility] Comment on above: Performed By: #### C BC, BMP #### [address] Mean Corpuscular HGB Conc 33.5 g/dL Normal 32.5-35.6 [facility] Comment on above: Performed By: #### C BC, BMP #### [address] Monocytes (Bld) [#/Vol] 1.0 10*3/uL High 0.0-0.8 [facility] Comment on above: Performed By: #### C BC, BMP #### [address] Monocytes/100 WBC (Bld) 8.8 % Normal . [facility] Comment on above: Performed By: #### C BC, BMP #### [address] Neutrophils (Bld) [#/Vol] 7.3 10*3/uL Normal 1.8-7.7 [facility] Comment on above: Performed By: #### C BC, BMP #### [address] Neutrophils/100 WBC (Bld) 62.5 % Normal . [facility] Comment on above: Performed By: #### C BC, BMP #### [address] NRBC% 0.1 /100{WBC} Normal 0-0.5 [facility] Comment on above: Performed By: #### C BC, BMP #### [address] Platelet mean volume (Bld) [Entitic vol] 9.2 fL Normal 6.6-10.1 [facility] Comment on above: Performed By: #### C BC, BMP #### [address] Platelets (Bld) [#/Vol] 235 10*3/uL Normal 150-450 [facility] Comment on above: Performed By: #### C BC, BMP #### [address] RBC (Bld) [#/Vol] 4.00 10*6/uL Normal 3.90-5.60 [facility] Comment on above: Performed By: #### C BC, BMP #### [address] WBC (Bld) [#/Vol] 11.7 10*3/uL High 4.1-10.5 [facility] Comment on above: Performed By: #### C BC, BMP #### [address] Basic Metabolic Panelon 05-07 Anion gap [Moles/Vol] 11.7 mmol/L Normal 6.0-15.0 [facility] Comment on above: Performed By: #### P TT, PT, BMP, HEPATIC #### [address] Calcium [Mass/Vol] 8.8 mg/dL Normal 8.6-10.3 [facility] Comment on above: Performed By: #### P TT, PT, BMP, HEPATIC #### [address] Chloride [Moles/Vol] 108 mmol/L High 98-107 [facility] Comment on above: Performed By: #### P TT, PT, BMP, HEPATIC #### [place] [address] [place] CO2 [Moles/Vol] 24.4 mmol/L Normal 21.0-31.0 [facility] Comment on above: Performed By: #### P TT, PT, BMP, HEPATIC #### [address] Creatinine [Mass/Vol] 1.34 mg/dL High 0.70-1.30 [facility] Comment on above: Performed By: #### P TT, PT, BMP, HEPATIC #### [place] [address] [place] Creatinine Clr Calc Pharmacy 81.59 Normal [facility] Comment on above: Result Comment: PERF ORMED BY: [place] [address] PATHOLOGIST [employer]OUTE SERVICE MANAGER ROBERTO OCAMPO M.D. Performed By: #### P TT, PT, BMP, HEPATIC #### [address] GFR/1.73 sq M.predicted MDRD (S/P/Bld) [Vol rate/Area] mL/min/{1.73_m2} Normal [facility] Comment on above: Performed By: #### P TT, PT, BMP, HEPATIC #### [address] Glucose [Mass/Vol] 115 mg/dL High 70-100 [facility] Comment on above: Result Comment: [place] Glucose Reference Range is dependent on time and content of last meal. Glucose of more than 200 mg/dL in a nonstressed, ambulatory subject supports the diagnosis of Diabetes Mellitus. ADA recommended reference range Performed By: #### P TT, PT, BMP, HEPATIC #### [address] Potassium [Moles/Vol] 4.1 mmol/L Normal 3.5-5.1 [facility] Comment on above: Performed By: #### P TT, PT, BMP, HEPATIC #### [address] Sodium [Moles/Vol] 140 mmol/L Normal 136-145 [facility] Comment on above: Performed By: #### P TT, PT, BMP, HEPATIC #### [address] Urea nitrogen [Mass/Vol] 33 mg/dL High 7-25 [facility] Comment on above: Performed By: #### P TT, PT, BMP, HEPATIC #### [address] Blood Cultureon 05-26-2023 Bacteria identified Cx Nom (Bld) NO GROWTH 5 DAYS PERFORMED BY: [place] [address] PATHOLOGIST [employer]OUTE SERVICE MANAGER ROBERTO OCAMPO M.D. Normal [facility] Comment on above: Performed By: #### C UBLD #### [address] Complete Blood Count Auto Di ffon 05-26-2023 Basophils (Bld) [#/Vol] 0.0 10*3/uL Normal 0.0-0.2 [facility] Comment on above: Result Comment: PERF ORMED BY: [place] [address] PATHOLOGIST ROUTE SERVICE MANAGER ROBERTO OCAMPO M.D. Performed By: #### P TT, PT, BMP, HEPATIC #### [address] Basophils/100 WBC (Bld) 0.1 % Normal . [facility] Comment on above: Performed By: #### P TT, PT, BMP, HEPATIC #### [address] Eosinophils (Bld) [#/Vol] 0.0 10*3/uL Normal 0.0-0.45 [facility] Comment on above: Performed By: #### P TT, PT, BMP, HEPATIC #### [address] Eosinophils/100 WBC (Bld) 0.0 % Normal . [facility] Comment on above: Performed By: #### P TT, PT, BMP, HEPATIC #### [address] Erythrocyte distribution width (RBC) [Ratio] 14.3 % Normal 12.0-14.8 [facility] Comment on above: Performed By: #### P TT, PT, BMP, HEPATIC #### [address] Hematocrit (Bld) [Volume fraction] 36.9 % Low 38.8-50.0 [facility] Comment on above: Performed By: #### P TT, PT, BMP, HEPATIC #### [address] Hemoglobin (Bld) [Mass/Vol] 12.1 g/dL Low 13.0-17.0 [facility] Comment on above: Performed By: #### P TT, PT, BMP, HEPATIC #### [address] Lymphocytes (Bld) [#/Vol] 2.0 10*3/uL Normal 1.00-4.8 [facility] Comment on above: Performed By: #### P TT, PT, BMP, HEPATIC #### [address] Lymphocytes/100 WBC (Bld) 11.4 % Normal . [facility] Comment on above: Performed By: #### P TT, PT, BMP, HEPATIC #### [address] MCH (RBC) [Entitic mass] 32.2 pg Normal 27.5-35.2 [facility] Comment on above: Performed By: #### P TT, PT, BMP, HEPATIC #### [address] MCV (RBC) [Entitic vol] 98.1 fL Normal 83.5-101 [facility] Comment on above: Performed By: #### P TT, PT, BMP, HEPATIC #### [address] Mean Corpuscular HGB Conc 32.9 g/dL Normal 32.5-35.6 [facility] Comment on above: Performed By: #### P TT, PT, BMP, HEPATIC #### [address] Monocytes (Bld) [#/Vol] 1.4 10*3/uL High 0.0-0.8 [facility] Comment on above: Performed By: #### P TT, PT, BMP, HEPATIC #### [address] Monocytes/100 WBC (Bld) 7.9 % Normal . [facility] Comment on above: Performed By: #### P TT, PT, BMP, HEPATIC #### [address] Neutrophils (Bld) [#/Vol] 14.0 10*3/uL High 1.8-7.7 [facility] Comment on above: Performed By: #### P TT, PT, BMP, HEPATIC #### [address] Neutrophils/100 WBC (Bld) 80.6 % Normal . [facility] Comment on above: Performed By: #### P TT, PT, BMP, HEPATIC #### [address] NRBC% 0.1 /100{WBC} Normal 0-0.5 [facility] Comment on above: Performed By: #### P TT, PT, BMP, HEPATIC #### [place] [address] Platelet mean volume (Bld) [Entitic vol] 9.4 fL Normal 6.6-10.1 [facility] Comment on above: Performed By: #### P TT, PT, BMP, HEPATIC #### [address] Platelets (Bld) [#/Vol] 233 10*3/uL Normal 150-450 [facility] Comment on above: Performed By: #### P TT, PT, BMP, HEPATIC #### [address] RBC (Bld) [#/Vol] 3.77 10*6/uL Low 3.90-5.60 [facility] Comment on above: Performed By: #### P TT, PT, BMP, HEPATIC #### [address] WBC (Bld) [#/Vol] 17.3 10*3/uL High 4.1-10.5 [facility] Comment on above: Performed By: #### P TT, PT, BMP, HEPATIC #### [address] Basic Metabolic Panelon 05-07 Anion gap [Moles/Vol] 12.1 mmol/L Normal 6.0-15.0 [facility] Comment on above: Performed By: #### C BC, BMP #### [address] Calcium [Mass/Vol] 8.6 mg/dL Normal 8.6-10.3 [facility] Comment on above: Performed By: #### C BC, BMP #### [place] [address] [place] Chloride [Moles/Vol] 107 mmol/L Normal 98-107 [facility] Comment on above: Performed By: #### C BC, BMP #### [address] CO2 [Moles/Vol] 21.6 mmol/L Normal 21.0-31.0 [facility] Comment on above: Performed By: #### C BC, BMP #### [address] Creatinine [Mass/Vol] 1.29 mg/dL Normal 0.70-1.30 [facility] Comment on above: Performed By: #### C BC, BMP #### [place] [address] [place] Creatinine Clr Calc Pharmacy 84.75 Normal [facility] Comment on above: Performed By: #### C BC, BMP #### [place] [address] [place] GFR/1.73 sq M.predicted MDRD (S/P/Bld) [Vol rate/Area] mL/min/{1.73_m2} Normal [facility] Comment on above: Performed By: #### C BC, BMP #### [address] Glucose [Mass/Vol] 194 mg/dL High 70-100 [facility] Comment on above: Result Comment: [facility] Glucose Reference Range is dependent on time and content of last meal. Glucose of more than 200 mg/dL in a nonstressed, ambulatory subject supports the diagnosis of Diabetes Mellitus. ADA recommended reference range Performed By: #### C BC, BMP #### [address] Potassium [Moles/Vol] 3.7 mmol/L Normal 3.5-5.1 [facility] Comment on above: Performed By: #### C BC, BMP #### [place] [address] [place] Sodium [Moles/Vol] 137 mmol/L Normal 136-145 [facility] Comment on above: Performed By: #### C BC, BMP #### [address] Urea nitrogen [Mass/Vol] 27 mg/dL High 7-25 [facility] Comment on above: Performed By: #### C BC, BMP #### [address] Complete Blood Count Auto Di ffon 05-25-2023 Basophils (Bld) [#/Vol] 0.0 10*3/uL Normal 0.0-0.2 [facility] Comment on above: Result Comment: PERF ORMED BY: [place] [address] PATHOLOGIST [employer]OUTE SERVICE MANAGER ROBERTO OCAMPO M.D. Performed By: #### C BC, BMP #### [address] Basophils/100 WBC (Bld) 0.2 % Normal . [facility] Comment on above: Performed By: #### C BC, BMP #### [address] Eosinophils (Bld) [#/Vol] 0.0 10*3/uL Normal 0.0-0.45 [facility] Comment on above: Performed By: #### C BC, BMP #### [address] Eosinophils/100 WBC (Bld) 0.0 % Normal . [facility] Comment on above: Performed By: #### C BC, BMP #### [address] Erythrocyte distribution width (RBC) [Ratio] 14.3 % Normal 12.0-14.8 [facility] Comment on above: Performed By: #### C BC, BMP #### [address] Hematocrit (Bld) [Volume fraction] 37.6 % Low 38.8-50.0 [facility] Comment on above: Performed By: #### C BC, BMP #### [address] Hemoglobin (Bld) [Mass/Vol] 12.7 g/dL Low 13.0-17.0 [facility] Comment on above: Performed By: #### C BC, BMP #### [address] Lymphocytes (Bld) [#/Vol] 0.9 10*3/uL Low 1.00-4.8 [facility] Comment on above: Performed By: #### C BC, BMP #### [address] Lymphocytes/100 WBC (Bld) 5.4 % Normal . [facility] Comment on above: Performed By: #### C BC, BMP #### [address] MCH (RBC) [Entitic mass] 33.1 pg Normal 27.5-35.2 [facility] Comment on above: Performed By: #### C BC, BMP #### [address] MCV (RBC) [Entitic vol] 97.6 fL Normal 83.5-101 [facility] Comment on above: Performed By: #### C BC, BMP #### [address] Mean Corpuscular HGB Conc 33.9 g/dL Normal 32.5-35.6 [facility] Comment on above: Performed By: #### C BC, BMP #### [address] Monocytes (Bld) [#/Vol] 0.6 10*3/uL Normal 0.0-0.8 [facility] Comment on above: Performed By: #### C BC, BMP #### [address] Monocytes/100 WBC (Bld) 3.6 % Normal . [facility] Comment on above: Performed By: #### C BC, BMP #### [address] Neutrophils (Bld) [#/Vol] 15.9 10*3/uL High 1.8-7.7 [facility] Comment on above: Performed By: #### C BC, BMP #### [address] Neutrophils/100 WBC (Bld) 90.8 % Normal . [facility] Comment on above: Performed By: #### C BC, BMP #### [address] NRBC% 0.0 /100{WBC} Normal 0-0.5 [facility] Comment on above: Performed By: #### C BC, BMP #### [address] Platelet mean volume (Bld) [Entitic vol] 9.3 fL Normal 6.6-10.1 [facility] Comment on above: Performed By: #### C BC, BMP #### [address] Platelets (Bld) [#/Vol] 207 10*3/uL Normal 150-450 [facility] Comment on above: Performed By: #### C BC, BMP #### [address] RBC (Bld) [#/Vol] 3.85 10*6/uL Low 3.90-5.60 [facility] Comment on above: Performed By: #### C BC, BMP #### [address] WBC (Bld) [#/Vol] 17.5 10*3/uL High 4.1-10.5 [facility] Comment on above: Performed By: #### C BC, BMP #### [address] Creatine Kinaseon 05-25-2023 CK [Catalytic activity/Vol] 198 U/L Normal 30-223 [facility] Comment on above: Performed By: #### C BC, BMP #### [address] ECG 12 lead ECGon 05-25-2023 ECG 12 lead ECG [facility] [place] [address] Electrocardiograph Report Signed Patient: Tejas Ray MR#: [id number] 0 : 1965 Acct:[id number] Age/Sex: 58 / M ADM Date: 05/24/23 Loc: Room: [address] [place] [address] Type: ADM IN Attending Dr: Arturo Dolan [...] Linh Paz MD 0 05/25/23 1440 Normal [facility] echo transthoracicon [facility] echo transthoracic [facility] [place] [address] Echocardiogram Signed Patient: Tejas Ray MR#: [id number] 0 : 1965 Acct:[id number] Age/Sex: 58 / M ADM Date: 05/24/23 Loc: Room: [address] [place] [address] Type: ADM IN Attending Dr: Arturo Dolan DO Ordering Provider: Arturo Dolan DO Date of Service: 05/24/23 [facility] echo transthoracic: new A-Fib with RVR Copies [...] By: Linh Paz MD 05/25/23 1150 Normal [facility] Magnesiumon 05-25-2023 Magnesium [Mass/Vol] 1.9 mg/dL Normal 1.9-2.7 [facility] Comment on above: Result Comment: PERF ORMED BY: [place] [address] PATHOLOGIST [employer]OUTE SERVICE MANAGER ROBERTO OCAMPO M.D. Performed By: #### C BC, BMP #### [address] Troponin I High Sensitivityo n 05-25-2023 Troponin I High Sensitivity 7.0 pg/mL Normal 0.0-20.0 [facility] Comment on above: Result Comment: PERF ORMED BY: [place] [address] PATHOLOGIST [employer]OUTE SERVICE MANAGER ROBERTO OCAMPO M.D. Performed By: #### C BC, BMP #### [address] A1C with Estimated Average G luon 05-24-2023 Glucose [Mass/Vol] 131 mg/dL Normal [facility] Comment on above: Result Comment: PERF ORMED BY: [place] [id number] PATHOLOGIST ROUTE SERVICE MANAGER ROBERTO OCAMPO M.D. Performed By: #### P TT, PT, BMP, HEPATIC #### [address] HbA1c (Bld) [Mass fraction] 6.2 % High 4.3-5.6 [facility] Comment on above: Result Comment: Incr eased risk for diabetes: 5.7 - 6.4 diabetes: >6.4 glycemic control for adults with diabetes: <7.0 Performed By: #### P TT, PT, BMP, HEPATIC #### [place] [address] [place] Activated partial thrombopla stin time (aPTT) in platelet poor plasma by coagulation aOrdered By: Ria Talamantes on 05-24-2023 aPTT Coag (PPP) [Time] 27.5 s 25.1-36.5 [facility] Comment on above: A hematocrit value g reater than 55% may lead to inaccurate results in coagulation testing. Patients having hematocrit values >55% require a special collection tube for coagulation studies. Please contact the laboratory at [phone] for redraw instructions. Aerobic Cultureon 05-24-2023 Aerobic Culture Result Tab Codes Moderate Normal Respiratory [place] 2 Days Gram Stain Result 1+ Gram Positive Cocci in Clusters 1+ Gram Negative Bacilli 1+ White Blood Cells 1+ Epithelial Cells * This is a corrected result. * A prior result that was reported as final has been changed. PERFORMED BY: [place] [address] PATHOLOGIST ROUTE SERVICE MANAGER ROBERTO OCAMPO M.D. Normal [facility] Comment on above: Performed By: #### P TT, PT, BMP, HEPATIC #### [address] [address] [facility] Automated erythrocytes count in urine sediment (number/area)Ordered By: Ria Talamantes on 05-24-2023 RBC Auto (Urine sed) [#/Area] None seen [HPF] 0-4 [facility] Automated leukocytes count i n urine sediment (number/area)Ordered By: [facility] 05-24-2023 WBC Auto (Urine sed) [#/Area] None seen [HPF] 0-4 [facility] B-Type Natriuretic Peptideon 05-24-2023 Natriuretic peptide B (Bld) [Mass/Vol] 221.0 pg/mL High 5-100 [facility] Comment on above: Result Comment: PERF ORMED BY: [address] [address] PATHOLOGIST ROUTE SERVICE MANAGER ROBERTO OCAMPO M.D. Performed By: #### C BC, BMP #### [address] Basic Metabolic Panelon 05-06 Anion gap [Moles/Vol] 13.0 mmol/L Normal 6.0-15.0 [facility] Comment on above: Performed By: #### C BC, BMP #### [address] Calcium [Mass/Vol] 9.2 mg/dL Normal 8.6-10.3 [facility] Comment on above: Performed By: #### C BC, BMP #### [address] Chloride [Moles/Vol] 105 mmol/L Normal 98-107 [facility] Comment on above: Performed By: #### C BC, BMP #### [address] CO2 [Moles/Vol] 22.1 mmol/L Normal 21.0-31.0 [facility] Comment on above: Performed By: #### C BC, BMP #### [address] Creatinine [Mass/Vol] 1.38 mg/dL High 0.70-1.30 [facility] Comment on above: Performed By: #### C BC, BMP #### [address] Creatinine Clr Calc Pharmacy 79.52 Normal [facility] Comment on above: Result Comment: PERF ORMED BY: [place] [address] PATHOLOGIST ROUTE SERVICE MANAGER ROBERTO OCAMPO M.D. Performed By: #### C BC, BMP #### [address] GFR/1.73 sq M.predicted MDRD (S/P/Bld) [Vol rate/Area] 58.542 mL/min/{1.73_m2} Normal [facility] Comment on above: Performed By: #### C BC, BMP #### [address] Glucose [Mass/Vol] 110 mg/dL High 70-100 [facility] Comment on above: Result Comment: [place] Glucose Reference Range is dependent on time and content of last meal. Glucose of more than 200 mg/dL in a nonstressed, ambulatory subject supports the diagnosis of Diabetes Mellitus. ADA recommended reference range Performed By: #### C BC, BMP #### [address] Potassium [Moles/Vol] 4.1 mmol/L Normal 3.5-5.1 [facility] Comment on above: Performed By: #### C BC, BMP #### [address] Sodium [Moles/Vol] 136 mmol/L Normal 136-145 [facility] Comment on above: Performed By: #### C NOMAN, BMP #### [address] Urea nitrogen [Mass/Vol] 23 mg/dL Normal 7-25 [facility] Comment on above: Performed By: #### C BC, BMP #### [address] Basophils Auto (Bld) [#/Vol] Ordered By: Ria Talamantes on 05-24-2023 Basophils (Bld) [#/Vol] 0.1 10*3/uL 0.0-0.2 [facility] Basophils/100 WBC Auto (Bld) Ordered By: Ria Talamantes on 05-24-2023 Basophils/100 WBC (Bld) 0.5 % . [facility] Bilirubin Test strip Ql (U)O rdered By: Ria Talamantes on 05-24-2023 Bilirubin Ql (U) Negative Negative [facility] Blood Cultureon 05-24-2023 Bacteria identified Cx Nom (Bld) NO GROWTH 5 DAYS PERFORMED BY: [place] [address] PATHOLOGIST ROUTE SERVICE MANAGER ROBERTO OCAMPO M.D. Normal [facility] Comment on above: Performed By: #### P TT, PT, BMP, HEPATIC #### [facility] [address] Bacteria identified Cx Nom (Bld) Gram [...] culture Not detected Group A (Streptococcus pyogenes) [id number] Not detected Group B Strep (Streptococcus agalactiae) [...] called at (more content not included)... Normal [facility] Comment on above: Performed By: #### P TT, PT, BMP, HEPATIC #### [facility] [address] COVID CepheidOrdered By: Greg Talamantes on 05-24-2023 SARS-CoV-2 (COVID-19) Ab IA Ql Negative Negative [facility] Comment on above: This is a duplicate Cepheid Xpert Xpress CoV-2/Flu/RSV Plus RNA by RT-PCR result to be used for statistical tracking purpose only. SARS-CoV-2 (COVID-19) RNA PRITESH+probe Ql (Unsp spec) [facility] COVID-19 / Flu A/B / RSV PCR [...] or Cepheid Disclaimer revoked sooner. PERFORMED BY: [place] [address] PATHOLOGIST ROUTE SERVICE MANAGER ROBERTO OCAMPO M.D. Normal [facility] Comment on above: Performed By: #### P TT, PT, BMP, HEPATIC #### [address] angio chest PE protocolon 05-24-2023 CT angio chest PE protocol [facility] [place] [address] [place] [address] CT Scan Report Signed Patient: Tejas Ray MR#: [id number] 0 : 1965 Acct:[id number] Age/Sex: 58 / M ADM Date: 05/24/23 Loc: ER Room: Type: [facility] ER Attending Dr: Copies to: Ria Talamantes [...] Kulwinder Miller M.D.05/24/2023 5:17 PM Dictation Location: [place] [address] Transcribed By: [facility] 05/24/231716 Dictated By: Kulwinder Miller DO 05/24/231711 Signed By: 05/24/231716 Normal [facility] Calcium [Mass/volume] in Ser um or PlasmaOrdered By: Ria Talamantes on 05-24-2023 Calcium [Mass/Vol] 9.2 mg/dL 8.6-10.3 [facility] Carbon dioxide, total [Moles /volume] in Serum or PlasmaOrdered By: Ria Talamantes on 05-24-2023 CO2 [Moles/Vol] 22.1 mmol/L 21.0-31.0 [facility] Cepheid COVID PCR Negativeon 05-24-2023 SARS-CoV-2 (COVID-19) RNA PRITESH+probe Ql (Unsp spec) Negative Normal Negative [facility] Comment on above: Result Comment: This is a duplicate Cepheid Xpert Xpress CoV-2/Flu/RSV Plus RNA by RT-PCR result to be used for statistical tracking purpose only. PERFORMED BY: [address] [address] PATHOLOGIST ROUTE SERVICE MANAGER ROBERTO OCAMPO M.D. Performed By: #### P TT, PT, BMP, HEPATIC #### [address] [place] [address] [place] Chloride [Moles/volume] in S rafy or PlasmaOrdered By: Ria Talamantes on 05-24-2023 Chloride [Moles/Vol] 105 mmol/L 98-107 [facility] Color Auto (U)Ordered By: Jimenez Talamantes on 05-24-2023 Color (U) Yellow Yellow [facility] Complete Blood Count Auto Di ffon 05-24-2023 Basophils (Bld) [#/Vol] 0.1 10*3/uL Normal 0.0-0.2 [facility] Comment on above: Result Comment: PERF ORMED BY: [place] [address] PATHOLOGIST ROUTE SERVICE MANAGER ROBERTO OCAMPO M.D. Performed By: #### C BC, BMP #### [address] Basophils/100 WBC (Bld) 0.5 % Normal . [facility] Comment on above: Performed By: #### C BC, BMP #### [address] Eosinophils (Bld) [#/Vol] 0.1 10*3/uL Normal 0.0-0.45 [facility] Comment on above: Performed By: #### C BC, BMP #### [address] Eosinophils/100 WBC (Bld) 0.9 % Normal . [facility] Comment on above: Performed By: #### C BC, BMP #### [address] Erythrocyte distribution width (RBC) [Ratio] 13.9 % Normal 12.0-14.8 [facility] Comment on above: Performed By: #### C BC, BMP #### [address] Hematocrit (Bld) [Volume fraction] 43.2 % Normal 38.8-50.0 [facility] Comment on above: Performed By: #### C BC, BMP #### [address] [place] [address] [place] Hemoglobin (Bld) [Mass/Vol] 14.6 g/dL Normal 13.0-17.0 [facility] Comment on above: Performed By: #### C BC, BMP #### [address] Lymphocytes (Bld) [#/Vol] 1.0 10*3/uL Normal 1.00-4.8 [facility] Comment on above: Performed By: #### C BC, BMP #### [address] Lymphocytes/100 WBC (Bld) 6.3 % Normal . [facility] Comment on above: Performed By: #### C NOMAN, BMP #### [address] MCH (RBC) [Entitic mass] 32.7 pg Normal 27.5-35.2 [facility] Comment on above: Performed By: #### C NOMAN, BMP #### [address] MCV (RBC) [Entitic vol] 96.7 fL Normal 83.5-101 [facility] Comment on above: Performed By: #### C NOMAN, BMP #### [address] Mean Corpuscular HGB Conc 33.8 g/dL Normal 32.5-35.6 [facility] Comment on above: Performed By: #### C NOMAN, BMP #### [place] [address] [place] Monocytes (Bld) [#/Vol] 0.9 10*3/uL High 0.0-0.8 [facility] Comment on above: Performed By: #### C BC, BMP #### [place] [address] [place] Monocytes/100 WBC (Bld) 20.36 % High 0.00-20.00 [facility] Comment on above: Result Comment: For adults in ED, MDW > 20.0 may be associated with a higher risk of sepsis during the first 12 hrs of hospital admission Performed By: #### C BC, BMP #### [facility] [address] [place] [address] [place] Monocytes/100 WBC (Bld) 5.7 % Normal . [facility] Comment on above: Performed By: #### C BC, BMP #### [facility] [address] [place] [address] [place] Neutrophils (Bld) [#/Vol] 13.3 10*3/uL High 1.8-7.7 [facility] Comment on above: Performed By: #### C BC, BMP #### [facility] [address] [place] [address] [place] Neutrophils/100 WBC (Bld) 86.6 % Normal . [facility] Comment on above: Performed By: #### C BC, BMP #### [facility] [address] NRBC% 0.0 /100{WBC} Normal 0-0.5 [facility] Comment on above: Performed By: #### C BC, BMP #### [facility] [address] [place] [address] [place] Platelet mean volume (Bld) [Entitic vol] 9.6 fL Normal 6.6-10.1 [facility] Comment on above: Performed By: #### C BC, BMP #### [facility] [address] [place] [address] [place] Platelets (Bld) [#/Vol] 246 10*3/uL Normal 150-450 [facility] Comment on above: Performed By: #### C BC, BMP #### [facility] [address] [place] [address] [place] RBC (Bld) [#/Vol] 4.47 10*6/uL Normal 3.90-5.60 [facility] Comment on above: Performed By: #### C BC, BMP #### [facility] [address] WBC (Bld) [#/Vol] 15.3 10*3/uL High 4.1-10.5 [facility] Comment on above: Performed By: #### C BC, BMP #### [facility] [address] [place] [id number] [facility] Creatine Kinaseon 05-24-2023 CK [Catalytic activity/Vol] 251 U/L High 30-223 [facility] Comment on above: Performed By: #### P TT, PT, BMP, HEPATIC #### [facility] [address] Creatinine [Mass/volume] in Serum or PlasmaOrdered By: Ria Talamantes on 05-24-2023 Creatinine [Mass/Vol] 1.38 mg/dL 0.70-1.30 [facility] D-Dimer High Sensitivityon 0 05-24-2023 D-Dimer High Sensitivity 296 ng/mL High 0-243 [facility] Comment on above: Result Comment: The reference [...] coagulation studies. Please contact the laboratory at [phone] for redraw instructions. PERFORMED BY: [place] [address] PATHOLOGIST ROUTE SERVICE MANAGER ROBERTO OCAMPO M.D. Performed By: #### P TT, PT, BMP, HEPATIC #### [facility] [address] [place] [address] Dipstick and Microscopicon 0 05-24-2023 Appearance (U) Clear Normal Clear [facility] Comment on above: Order Comment: Name Collection Type:: Clean-Voided Midstream Performed By: #### P TT, PT, BMP, HEPATIC #### [facility] [address] [place] [address] [place] Bacteria,Urine None Seen Normal None Seen [facility] Comment on above: Order Comment: Name Collection Type:: Clean-Voided Midstream Performed By: #### P TT, PT, BMP, HEPATIC #### [facility] [address] [place] [address] [place] Bilirubin,Urine Negative Normal Negative [facility] Comment on above: Order Comment: Name Collection Type:: Clean-Voided Midstream Performed By: #### P TT, PT, BMP, HEPATIC #### [facility] [address] [place] [address] [place] Color (U) Yellow Normal Yellow [facility] Comment on above: Order Comment: Name Collection Type:: Clean-Voided Midstream Performed By: #### P TT, PT, BMP, HEPATIC #### [place] [address] [place] Glucose Ql (U) Normal Normal Normal [facility] Comment on above: Order Comment: Name Collection Type:: Clean-Voided Midstream Performed By: #### P TT, PT, BMP, HEPATIC #### [place] [address] [place] Hyaline Casts,Urine 0-8 Normal 0-8 [facility] Comment on above: Order Comment: Name Collection Type:: Clean-Voided Midstream Result Comment: PERF ORMED BY: [place] [address] PATHOLOGIST ROUTE SERVICE MANAGER ROBERTO OCAMPO M.D. Performed By: #### P TT, PT, BMP, HEPATIC #### [place] [address] [place] Ketones Ql (U) Negative Normal Negative [facility] Comment on above: Order Comment: Name Collection Type:: Clean-Voided Midstream Performed By: #### P TT, PT, BMP, HEPATIC #### [place] [address] [place] Leukocyte esterase Test strip Ql (U) Negative Normal Negative [facility] Comment on above: Order Comment: Name Collection Type:: Clean-Voided Midstream Performed By: #### P TT, PT, BMP, HEPATIC #### [place] [address] [place] Nitrite,Urine Negative Normal Negative [facility] Comment on above: Order Comment: Name Collection Type:: Clean-Voided Midstream Performed By: #### P TT, PT, BMP, HEPATIC #### [address] Occult Blood,Urine Negative Normal Negative [facility] Comment on above: Order Comment: Name Collection Type:: Clean-Voided Midstream Result Comment: PERF ORMED BY: [place] [address] PATHOLOGIST ROUTE SERVICE MANAGER ROBERTO OCAMPO M.D. Performed By: #### P TT, PT, BMP, HEPATIC #### [address] pH (U) 5.5 [pH] Normal 5.0-9.0 [facility] Comment on above: Order Comment: Name Collection Type:: Clean-Voided Midstream Performed By: #### P TT, PT, BMP, HEPATIC #### [address] Protein (U) [Mass/Vol] 30 mg/dL High Negative [facility] Comment on above: Order Comment: Name Collection Type:: Clean-Voided Midstream Performed By: #### P TT, PT, BMP, HEPATIC #### [place] [address] [place] RBC,Urine None Seen Normal 0-4 [facility] Comment on above: Order Comment: Name Collection Type:: Clean-Voided Midstream Performed By: #### P TT, PT, BMP, HEPATIC #### [place] [address] [place] Specificy [place],Urine 1.021 Normal 1.001-1.03 0 [facility] Comment on above: Order Comment: Name Collection Type:: Clean-Voided Midstream Performed By: #### P TT, PT, BMP, HEPATIC #### [address] [place] [address] [facility] Squamous Epithelial Cell,Urine None Seen Normal 0-2 [facility] Comment on above: Order Comment: Name Collection Type:: Clean-Voided Midstream Performed By: #### P TT, PT, BMP, HEPATIC #### [facility] [address] [place] [id number] [facility] Urobilinogen,Urine Normal Normal Normal [facility] Comment on above: Order Comment: Name Collection Type:: Clean-Voided Midstream Performed By: #### P TT, PT, BMP, HEPATIC #### [facility] [address] [place] [id number] [facility] WBC,Urine None Seen Normal 0-4 [facility] Comment on above: Order Comment: Name Collection Type:: Clean-Voided Midstream Performed By: #### P TT, PT, BMP, HEPATIC #### [address] ECG 12 lead ECGon 05-24-2023 ECG 12 lead ECG [facility] [place] [address] Electrocardiograph Report Signed Patient: Tejas Ray MR#: [id number] 0 : 1965 Acct:[id number] Age/Sex: 58 / M ADM Date: 05/24/23 Loc: Room: [address] [place] [address] Type: ADM IN Attending Dr: Arturo Dolan [...] MUS Signed By Nino Garrido MD 05/24/23 1931 Normal [facility] Eosinophils Auto (Bld) [#/Vo l]Ordered By: Ria Talamantes on 05-24-2023 Eosinophils (Bld) [#/Vol] 0.1 10*3/uL 0.0-0.45 [facility] Eosinophils/100 WBC Auto (Bl d)Ordered By: [facility] 05-24-2023 Eosinophils/100 WBC (Bld) 0.9 % . [facility] Erythrocyte distribution wid th Auto (RBC) [Ratio]Ordered By: Ria [facility] Un[facility]semarie on 05-24-2023 Erythrocyte distribution width (RBC) [Ratio] 13.9 % 12.0-14.8 [facility] Fibrin D-dimer [Presence] in Platelet poor plasma by Latex agglutinationOrdered By: Ria Talamantes on 05-24-2023 Fibrin D-dimer [place] Ql (PPP) 296 ng/mL 0-243 [facility] Comment on above: The reference range for [...] coagulation studies. Please contact the laboratory at [phone] for redraw instructions. Free T4 (Free Thyroxine)on 0 05-24-2023 Free T4 [Mass/Vol] 0.88 ng/dL Normal 0.61-1.12 [facility] Comment on above: Performed By: #### P TT, PT, BMP, HEPATIC #### [facility] [address] Glucose [Mass/volume] in Ser um or PlasmaOrdered By: Ria Talamantes on 05-24-2023 Glucose [Mass/Vol] 110 mg/dL 70-100 [facility] Comment on above: ADA recommended refe rence [...] as final has been changed. PERFORMED BY: [place] [address] PATHOLOGIST ROUTE SERVICE MANAGER ROBERTO OCAMPO M.D. Normal [facility] Comment on above: Performed By: #### P TT, PT, BMP, HEPATIC #### [facility] [address] Hematocrit Auto (Bld) [Volum e fraction]Ordered By: Ria Talamantes on 05-24-2023 Hematocrit (Bld) [Volume fraction] 43.2 % 38.8-50.0 [facility] Hemoglobin [Mass/volume] in BloodOrdered By: Ria Talamantes on 05-24-2023 Hemoglobin (Bld) [Mass/Vol] 14.6 g/dL 13.0-17.0 [facility] INR in Platelet poor plasma by Coagulation assayOrdered By: Ria Talamantes on 05-24-2023 INR Coag (PPP) [Relative time] 1.1 {INR} [facility] Comment on above: INR Therapeutic Rang e [...] on 05-24-2023 Ketones (U) [Mass/Vol] Negative Negative [facility] Vitaliy Thyroxine (T4)on T4 [Mass/Vol] 6.9 ug/dL Normal 4.5-12.0 [facility] Comment on above: Result Comment: Perf ormed at: - [facility] [address] [id number] Leach Runner: Edwin Nazario PhD, Phone: [phone] PERFORMED BY: [place] [address] PATHOLOGIST ROUTE SERVICE MANAGER ROBERTO OCAMPO M.D. Performed By: #### L C T4 #### [facility] , Laboratory - UrinalysisOrder ed By: Ria Talamantes on 05-24-2023 Hyaline casts LM Ql (Urine sed) 0-8 [LPF] 0-8 [facility] Lactate [Moles/volume] in Se rum or PlasmaOrdered By: Ria Talamantes on 05-24-2023 Lactate [Moles/Vol] 1.8 mmol/L 0.5-2.2 [facility] Lactic Acidon 05-24-2023 Lactate [Moles/Vol] 1.8 mmol/L Normal 0.5-2.2 [facility] Comment on above: Result Comment: PERF ORMED BY: [place] [address] PATHOLOGIST ROUTE SERVICE MANAGER ROBERTO OCAMPO M.D. Performed By: #### P TT, PT, BMP, HEPATIC #### [address] [address] [place] Leukocytes [#/volume] correc isaiah for nucleated erythrocytes in Blood by Automated counOrdered By: Ria Talamantes on 05-24-2023 WBC corrected for nucl RBC Auto (Bld) [#/Vol] 15.3 10*3/uL 4.1-10.5 [facility] Lymphocytes Auto (Bld) [#/Vo l]Ordered By: Ria Talamantes on 05-24-2023 Lymphocytes (Bld) [#/Vol] 1.0 10*3/uL 1.00-4.8 [facility] Lymphocytes/100 WBC Auto (Bl d)Ordered By: Ria Talamantes on 05-24-2023 Lymphocytes/100 WBC (Bld) 6.3 % . [facility] MCH Auto (RBC) [Entitic mass ]Ordered By: Ria Talamantes on 05-24-2023 MCH (RBC) [Entitic mass] 32.7 pg 27.5-35.2 [facility] MCHC Auto (RBC) [Mass/Vol]Or dered By: Ria Talamantes on 05-24-2023 MCHC (RBC) [Mass/Vol] 33.8 g/dL 32.5-35.6 [facility] MCV Auto (RBC) [Entitic vol] Ordered By: Ria Talamantes on 05-24-2023 MCV (RBC) [Entitic vol] 96.7 fL 83.5-101 [facility] Magnesiumon 05-24-2023 Magnesium [Mass/Vol] 1.9 mg/dL Normal 1.9-2.7 [facility] Comment on above: Result Comment: PERF ORMED BY: [place] [address] PATHOLOGIST ROUTE SERVICE MANAGER ROBERTO OCAMPO M.D. Performed By: #### C , BMP #### [address] Magnesium [Mass/volume] in S rafy or PlasmaOrdered By: Ria Talamantes on 05-24-2023 Magnesium [Mass/Vol] 1.9 mg/dL 1.9-2.7 [facility] Monocyte distribution width [Entitic volume] in Blood by AutomatedOrdered By: Ria Talamantes on 05-24-2023 Monocyte distribution width Auto (Bld) [Entitic vol] 20.36 % 0.00-20.00 [facility] Comment on above: For adults in ED, MD W > 20.0 may be associated with a higher risk of sepsis during the first 12 hrs of hospital admission Monocytes Auto (Bld) [#/Vol] Ordered By: Ria Talamantes on 05-24-2023 Monocytes (Bld) [#/Vol] 0.9 10*3/uL 0.0-0.8 [facility] Monocytes/100 WBC Auto (Bld) Ordered By: Ria Talamantes on 05-24-2023 Monocytes/100 WBC (Bld) 5.7 % . [facility] Natriuretic peptide B [Mass/ Vol]Ordered By: Ria Talamantes on 05-24-2023 Natriuretic peptide B (Bld) [Mass/Vol] 221.0 pg/mL 5-100 [facility] Neutrophils Auto (Bld) [#/Vo l]Ordered By: Ria Talamantes on 05-24-2023 Neutrophils (Bld) [#/Vol] 13.3 10*3/uL 1.8-7.7 [facility] Neutrophils/100 WBC Auto (Bl d)Ordered By: Ria Talamantes on 05-24-2023 Neutrophils/100 WBC (Bld) 86.6 % . [facility] Nitrite Test strip Ql (U)Ord ered By: Ria Talamantes on 05-24-2023 Nitrite Ql (U) Negative Negative [facility] No Panel InformationOrdered By: Ria Talamantes on 05-24-2023 Estimated GFR (CKD-EPI) 58.542 mL/Min [facility] Creatinine Clearance (Chem 79.52 [facility] Nucleated erythrocytes [Pres ence] in Blood by Automated countOrdered By: Ria Talamantes on 05-24-2023 Nucleated RBC Auto Ql (Bld) 0.0 /100{WBC} 0-0.5 [facility] Partial Thromboplastin Timeo n 05-24-2023 aPTT Coag (Bld) [Time] 27.5 s Normal 25.1-36.5 Th e [facility] Comment on above: Result Comment: A he matocrit value greater than 55% may lead to inaccurate results in coagulation testing. Patients having hematocrit values >55% require a special collection tube for coagulation studies. Please contact the laboratory at [phone] for redraw instructions. PERFORMED BY: [place] [address] PATHOLOGIST ROUTE SERVICE MANAGER ROBERTO OCAMPO M.D. Performed By: #### P TT, PT, BMP, HEPATIC #### [facility] [address] [place] [address] Platelet mean volume Auto (B ld) [Entitic vol]Ordered By: Ria Talamantes on 05-24-2023 Platelet mean volume (Bld) [Entitic vol] 9.6 fL 6.6-10.1 [facility] Platelets Auto (Bld) [#/Vol] Or[facility]: [facility] Platelets (Bld) [#/Vol] 246 10*3/uL 150-450 [facility] Potassium [Moles/volume] in Serum or PlasmaOrdered By: [facility]ia [facility] 05-24-2023 Potassium [Moles/Vol] 4.1 mmol/L 3.5-5.1 [facility] Protein Auto test strip (U) [Mass/Vol]Ordered By: Ria Talamantes on 05-24-2023 Protein (U) [Mass/Vol] 30 mg/dL Negative [facility] Prothrombin Time INRon 05-24 INR Coag (PPP) [Relative time] 1.1 {INR} Normal [facility] Comment on above: Result Comment: INR Therapeutic [...] - 4.5 Performed By: #### P TT, PT, BMP, HEPATIC #### [facility] [address] [place] [address] PT Coag (PPP) [Time] 12.8 s Normal 9.0-12.9 [facility] Comment on above: Result Comment: A he matocrit value greater than 55% may lead to inaccurate results in coagulation testing. Patients having hematocrit values >55% require a special collection tube for coagulation studies. Please contact the laboratory at [phone] for redraw instructions. Performed By: #### P TT, PT, BMP, HEPATIC #### [facility] [address] Prothrombin time (PT)Ordered By: Ria Talamantes on 05-24-2023 PT Coag (PPP) [Time] 12.8 s 9.0-12.9 [facility] Comment on above: A hematocrit value g reater than 55% may lead to inaccurate results in coagulation testing. Patients having hematocrit values >55% require a special collection tube for coagulation studies. Please contact the laboratory at [phone] for redraw instructions. RBC Auto (Bld) [#/Vol]Ordere d By: Ria Talamantes on 05-24-2023 RBC (Bld) [#/Vol] 4.47 10*6/uL 3.90-5.60 [facility] Serum or plasma anion gap de terminationOrdered By: Ria Talamantes on 05-24-2023 Anion gap [Moles/Vol] 13.0 mmol/L 6.0-15.0 [facility] Sodium [Moles/volume] in Ser um or PlasmaOrdered By: Ria Talamantes on 05-24-2023 Sodium [Moles/Vol] 136 mmol/L 136-145 [facility] Specific gravity Auto test s trip (U) [Rel density]Ordered By: Ria Talamantes on 05-24-2023 Specific gravity (U) [Rel density] 1.021 1.001-1.03 0 [facility] Squamous epithelial cells de tection in urine sediment by light microscopyOrdered By: Ria Talamantes on 05-24-2023 Epithelial cells.squamous LM Ql (Urine sed) None seen [HPF] 0-2 [facility] Thyroid Stimulating Hormoneo n 05-24-2023 TSH Qn 1.10 m[IU]/L Normal 0.45-5.33 [facility] Comment on above: Result Comment: PERF ORMED BY: [place] [address] PATHOLOGIST ROUTE SERVICE MANAGER ROBERTO OCAMPO M.D. Performed By: #### P TT, PT, BMP, HEPATIC #### [facility] [address] [place] [address] [place] Troponin I High Sensitivityo n 05-24-2023 Troponin I High Sensitivity 11.5 pg/mL Normal 0.0-20.0 [facility] Comment on above: Result Comment: PERF ORMED BY: [place] [address] PATHOLOGIST ROUTE SERVICE MANAGER ROBERTO OCAMPO M.D. Performed By: #### P TT, PT, BMP, HEPATIC #### [facility] [address] [place] [address] Troponin I High Sensitivity 8.9 pg/mL Normal 0.0-20.0 [facility] Comment on above: Result Comment: PERF ORMED BY: [place] [address] PATHOLOGIST ROUTE SERVICE MANAGER ROBERTO OCAMPO M.D. Performed By: #### C BC, BMP #### [facility] [address] [place], [place] [id number] [facility] Troponin I.cardiac [Mass/vol ume] in Serum or Plasma by Detection limit <= 0.01 ng/Ordered By: Ria Talamantes on 05-24-2023 Troponin I.cardiac DL <= 0.01 ng/mL [Mass/Vol] 8.9 pg/mL 0.0-20.0 [facility] Urea nitrogen [Mass/volume] in Serum or PlasmaOrdered By: Ria Talamantes on 05-24-2023 Urea nitrogen [Mass/Vol] 23 mg/dL 11-27 [facility] Urine bacteria detection by automated methodOrdered By: Ria Talamantes on 05-24-2023 Bacteria Auto Ql (U) None seen None Seen [facility] Urine clarity by refractomet ry automatedOrdered By: Ria Talamantes on 05-24-2023 Clarity Refractometry automated (U) Clear Clear [facility] Urine glucose measurement by automated test strip (mass/volume)Ordered By: Ria Talamantes on 05-24-2023 Glucose Auto test strip (U) [Mass/Vol] Normal mg/dL Normal [facility] Urine hemoglobin detection b y automated test stripOrdered By: Ria Talamantes on 05-24-2023 Hemoglobin Auto test strip Ql (U) Negative Negative [facility] Urine leukocyte esterase det ection by automated test stripOrdered By: Ria Talamantes on 05-24-2023 Leukocyte esterase Auto test strip Ql (U) Negative Negative [facility] Urobilinogen Auto test strip (U) [Mass/Vol]Ordered By: Ria Talamantes on 05-24-2023 Urobilinogen (U) [Mass/Vol] Normal mg/dL Normal [facility] WBC Auto (Bld) [#/Vol]Ordere d By: Ria Talamantes on 05-24-2023 WBC (Bld) [#/Vol] 15.3 10*3/uL 4.1-10.5 [facility] pH Auto test strip (U)Ordere d By: Ria Talamantes on 05-24-2023 pH (U) 5.5 [pH] 5.0-9.0 [facility] CBC AUTO DIFFon 03-10-2021 BASO # 0.1 103/ul Normal 0.0-0.1 [facility] Comment on above: Performed By: #### C BC #### [facility] [address] [place] [address] Dr. Christina Heredia Basophils/100 WBC (Bld) 0.7 % Normal 0.2-2.0 [facility] Comment on above: Performed By: #### C BC #### [facility] [address] [place] [address] Dr. Christina Heredia EO # 0.2 103/ul Normal 0.0-0.7 [facility] Comment on above: Performed By: #### C BC #### [facility] [address] [place] [address] Dr. Christina Heredia Eosinophils/100 WBC (Bld) 1.7 % Normal 0.9-7.0 [facility] Comment on above: Performed By: #### C BC #### [facility] [address] [place] [address] Dr. Christina Heredia Erythrocyte distribution width (RBC) [Ratio] 12.6 % Normal 11.0-15.0 [facility] Comment on above: Performed By: #### C BC #### [facility] [address] [place] [address] Dr. Christina Heredia Hematocrit (Bld) [Volume fraction] 43.9 % Normal 42.0-54.0 [facility] Comment on above: Performed By: #### C BC #### [facility] [address] [place] [address] Dr. Christina Heredia Hemoglobin (Bld) [Mass/Vol] 14.1 g/dL Normal 14.0-18.0 [facility] Comment on above: Performed By: #### C BC #### [facility] [address] [place] [address] Dr. Christina Heredia IG # 0.13 10e3/ul Critically high 0.00-0.03 [facility] Comment on above: Performed By: #### C BC #### [facility] [address] [place] [address] Dr. Christina Heredia IG % 1.5 % Critically high 0.0-0.5 [facility] Comment on above: Performed By: #### C BC #### [facility] [address] [place] [address] Dr. Christina Heredia LYMPH # 2.4 103/ul Normal 1.2-3.8 [facility] Comment on above: Performed By: #### C BC #### [facility] [address] [place] [address] Dr. Christina Heredia Lymphocytes/100 WBC (Bld) 27.0 % Normal 20.5-60.0 [facility] Comment on above: Performed By: #### C BC #### [facility] [address] [place] [address] Dr. Christina Heredia MANUAL DIFF REQ NO Normal [facility] Comment on above: Performed By: #### C BC #### [facility] [address] [place] [address] Dr. Christina Heredia MCH (RBC) [Entitic mass] 30.9 pg Normal 25.9-34.0 [facility] Comment on above: Performed By: #### C BC #### [facility] [address] [place] [address] Dr. Christina Heredia MCHC (RBC) [Mass/Vol] 32.1 g/dL Normal 29.9-35.2 [facility] Comment on above: Performed By: #### C BC #### [facility] [address] [place] [address] Dr. Christina Heredia MCV (RBC) [Entitic vol] 96.3 fL Critically high 80.0-94.0 [facility] Comment on above: Performed By: #### C BC #### [facility] [address] [place] [address] Dr. Christina Heredia MONO # 0.6 103/ul Normal 0.3-0.8 [facility] Comment on above: Performed By: #### C BC #### [facility] [address] [place] [address] Dr. Christina Heredia Monocytes/100 WBC (Bld) 6.4 % Normal 1.7-12.0 [facility] Comment on above: Performed By: #### C BC #### [facility] [address] [place] [address] Dr. Christina Heredia NEUT # 5.5 103/ul Normal 1.4-6.5 [facility] Comment on above: Performed By: #### C BC #### [facility] [address] [place] [address] Dr. Christina Heredia Neutrophils/100 WBC (Bld) 62.7 % Normal 43.0-75.0 [facility] Comment on above: Performed By: #### C BC #### [facility] [address] [place] [address] Dr. Christina Heredia Platelet mean volume (Bld) [Entitic vol] 10.8 fL Normal 9.5-13.5 [facility] Comment on above: Performed By: #### C BC #### [facility] [address] [place] [address] Dr. Christina Heredia PLT 251 103/ul Normal 150-450 [facility] Comment on above: Performed By: #### C BC #### [facility] [address] [place] [address] Dr. Christina Heredia RBC 4.56 106/ul Critically low 4.70-6.10 [facility] Comment on above: Performed By: #### C BC #### [facility] [address] [place] [address] Dr. Christina Heredia WBC 8.7 103/ul Normal 4.0-11.0 [facility] Comment on above: Performed By: #### C BC #### [facility] [address] [place] [address] Dr. Christina Heredia CRPon 03-10-2021 CRP [Mass/Vol] mg/L Normal <=1.0 [facility] Comment on above: Performed By: #### C RP, CMP #### [facility] [address] [place] [address] Dr. Christina Heredia MONOon 03-10-2021 Monocytes (Bld) [#/Vol] Negative Normal NEGATIVE [facility] Comment on above: Performed By: #### M CHRISTIANO #### [facility] [address] [place] [address] Dr. Christina Heredia PROF 14(COMP METB)on 021 Albumin [Mass/Vol] 3.3 g/dL Critically low 3.5-5.0 Th e [facility] Comment on above: Performed By: #### C RP, CMP #### [facility] [address] [place] [address] Dr. Christina Heredia Albumin/Globulin [Mass ratio] 0.8 {ratio} Normal [facility] Comment on above: Performed By: #### C RP, CMP #### [facility] [address] [place] [address] Dr. Christina Heredia ALP [Catalytic activity/Vol] 64 U/L Normal 38-126 [facility] Comment on above: Performed By: #### C RP, CMP #### [facility] [address] [place] [address] Dr. Christina Heredia ALT [Catalytic activity/Vol] 42 U/L Normal 21-72 [facility] Comment on above: Performed By: #### C RP, CMP #### [facility] [address] [place] [address] Dr. Christina Heredia Anion gap [Moles/Vol] 11.4 mmol/L Normal [facility] Comment on above: Performed By: #### C RP, CMP #### [facility] [address] [place] [address] Dr. Christina Heredia AST [Catalytic activity/Vol] 18 U/L Normal 17-59 [facility] Comment on above: Performed By: #### C RP, CMP #### [facility] [address] [place] [address] Dr. Christina Heredia Bilirubin [Mass/Vol] 0.5 mg/dL Normal 0.2-1.3 [facility] Comment on above: Performed By: #### C RP, CMP #### [facility] [address] [place] [address] Dr. Christina Heredia Calcium [Mass/Vol] 8.8 mg/dL Normal 8.4-10.2 [facility] Comment on above: Performed By: #### C RP, CMP #### [facility] [address] [place] [address] Dr. Christina Heredia Chloride [Moles/Vol] 109 mmol/L Critically high 98-107 [facility] Comment on above: Performed By: #### C RP, CMP #### [facility] [address] [place] [address] Dr. Christina Heredia CO2 [Moles/Vol] 24.3 mmol/L Normal 22.0-30.0 [facility] Comment on above: Performed By: #### C RP, CMP #### [facility] [address] [place] [address] Dr. Christina Heredia Creatinine [Mass/Vol] 1.43 mg/dL Critically high 0.66-1.25 [facility] Comment on above: Performed By: #### C RP, CMP #### [facility] [address] [place] [address] Dr. Christina Heredia EGFR-AF AUSTRIAN >60 Normal >=60 [facility] Comment on above: Performed By: #### C RP, CMP #### [facility] [address] [place] [address] Dr. Christina Heredia EGFR-NON AF AUSTRIAN 51 mL/min/1.73m2 Critically low >=60 [facility] Comment on above: Performed By: #### C RP, CMP #### [facility] [address] [place] [address] Dr. Christina Heredia Globulin (S) [Mass/Vol] 4.1 g/dL Normal [facility] Comment on above: Performed By: #### C RP, CMP #### [facility] [address] [place] [address] Dr. Christina Heredia Glucose [Mass/Vol] 113 mg/dL Critically high 74-106 [facility] Comment on above: Performed By: #### C RP, CMP #### [facility] [address] [place] [address] Dr. Christina Heredia Potassium [Moles/Vol] 4.7 mmol/L Normal 3.4-5.0 [facility] Comment on above: Performed By: #### C RP, CMP #### [facility] [address] [place] [address] Dr. Christina Heredia Protein [Mass/Vol] 7.4 g/dL Normal 6.1-8.2 [facility] Comment on above: Performed By: #### C RP, CMP #### [facility] [address] [place] [address] Dr. Christina Heredia Sodium [Moles/Vol] 140 mmol/L Normal 137-145 [facility] Comment on above: Performed By: #### C RP, CMP #### [facility] [address] [place] [address] Dr. Christina Heredia Urea nitrogen [Mass/Vol] 18.0 mg/dL Normal 9.0-20.0 [facility] Comment on above: Performed By: #### C RP, CMP #### [facility] [address] [place], [place] [address] Dr. Christina Heredia Urea nitrogen/Creatinine [Mass ratio] 12.6 mg/mg Normal [facility] Comment on above: Performed By: #### C RP, CMP #### [facility] [address] [place], [place] [address] Dr. Christina Heredia Vital Signs Date Time Vital Sign Value Performing Clinician Faci lity 05-28-2023 18:00-0500 Diastolic blood pressure 82 mm[Hg] MD Costa Guevara Work Phone: [facility] 05-28-2023 18:00-0500 Heart rate 128 /min MD Costa Guevara Work Phone: [facility] 05-28-2023 18:00-0500 Respiratory rate 20 /min MD Costa Guevara Work Phone: [facility] 05-28-2023 18:00-0500 SaO2% (BldA) [Mass fraction] 94 % MD Costa Guevara Work Phone: [facility] 05-28-2023 18:00-0500 Systolic blood pressure 131 mm[Hg] MD Costa Guevara Work Phone: [facility] 05-28-2023 12:38-0500 Body height 167.64 cm MD Costa Guevara Work Phone: [facility] 05-28-2023 12:38-0500 Body temperature 98.2 [degF] MD Costa Guevara Work Phone: [facility] 05-28-2023 12:38-0500 Body weight 136.07 kg MD Costa Guevara Work Phone: [facility] 05-27-2023 12:10-0500 Heart rate 92 /min [facility] 05-27-2023 12:10-0500 Respiratory rate 20 /min [facility] 05-27-2023 09:00-0500 Body temperature 97.7 [degF] [facility] 05-27-2023 09:00-0500 Diastolic blood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
[2023-08-20 10:48] LABS: BUN Creatinine Ratio 16.8; Calcium 8.9 mg/dL (8.5-10.1); Carbon Dioxide 24.4 mmol/L (21.0-32.0); Chloride 104 mmol/L (98-107); Estimated GFR (African America 53 (>=60); Estimated GFR (Non-African Ame 44 (>=60); Glucose 113 mg/dL (74-106); Potassium 4.4 mmol/L (3.5-5.1); Sodium 139 mmol/L (136-145)
== END 2023-08-20 09:53 | disposition home or self-care (01) ==
LOC: LAB 09:53
PROVIDERS: PCP Family Medicine; Visit Provider Internal Medicine Cardiovascular Disease
DX: I11.9 Hypertensive heart disease without heart failure (principal)
CPT/HCPCS: 36415; 80048

== ENCOUNTER 2024-01-08 09:52 | Outpatient (OUT) | payer OTHER, SELFPAY ==
--- OUTSIDE RECORDS SUMMARY | 2024-01-08 10:07 | XMS_ITS | CCD ---
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 Comment on above: Performed By: #### C BC #### [facility] [address] [place], [place] [id number] [facility] Erythrocytes [#/volume] in B lood by Automated countOrdered By: Edwin Mckinney on 05-28-2023 RBC (Bld) [#/Vol] 4.32 10*6/uL Normal 3.90-5.60 [facility] Comment on above: Performed By: #### C BC #### [place] [id number] [facility] Glucose [Mass/volume] in Ser um or PlasmaOrdered By: Edwin Mckinney on 05-28-2023 Glucose [Mass/Vol] 97 mg/dL Normal 70-100 [facility] Comment on above: ADA recommended refe rence rangeRandom Glucose Reference Range is dependent on time and content of last meal. Glucose of more than 200 mg/dL in a nonstressed, ambulatory subject supports the diagnosis of Diabetes Mellitus. Result Comment: [place] om Glucose Reference Range is dependent on time and content of last meal. Glucose of more than 200 mg/dL in a nonstressed, ambulatory subject supports the diagnosis of Diabetes Mellitus. ADA recommended reference range Performed By: #### P TT, HEPATIC, BMP, PT #### [place] [id number] [facility] Hematocrit [Volume Fraction] of Blood by Automated countOrdered By: Edwin Mckinney on 05-28-2023 Hematocrit (Bld) [Volume fraction] 42.1 % Normal 38.8-50.0 [facility] Comment on above: Performed By: #### C BC #### [place] [id number] [facility] Hemoglobin [Mass/volume] in BloodOrdered By: Edwin Mckinney on 05-28-2023 Hemoglobin (Bld) [Mass/Vol] 14.1 g/dL Normal 13.0-17.0 [facility] Comment on above: Performed By: #### C BC #### [address] Hepatic Panelon 05-28-2023 Albumin [Mass/Vol] 4.3 g/dL Normal 3.5-5.7 [facility] Comment on above: Performed By: #### P TT, HEPATIC, BMP, PT #### [address] [place] [address] [place] Bilirubin,Indirect 0.8 mg/dL Normal [facility] Comment on above: Performed By: #### P TT, HEPATIC, BMP, PT #### [facility] [address] Bilirubin.indirect [Mass/Vol] 0.20 mg/dL High 0.03-0.18 [facility] Comment on above: Performed By: #### P TT, HEPATIC, BMP, PT #### [facility] [address] INR in Platelet poor plasma by Coagulation assayOrdered By: Edwin Mckinney on 05-28-2023 INR Coag (PPP) [Relative time] 1.4 {INR} Normal [facility] Comment on above: INR Therapeutic Rang e A) Pre- and Peroperative OAT started two weeks before surgery. NOT HIP SURGERY: 1.5 - 2.5 HIP SURGERY: 2 - 3B) Primary and secondary prevention of venous THROMBOSIS: 2 - 3C) Active venous thrombosis, pulmonary embolismand prevention of recurrent venous thrombosis: 2 - 3D) Prevention of arterial thromboembolismincluding patients with mechanical heart valves: 3 - 4.5 Result Comment: INR Therapeutic Range A) Pre- [...] [facility] [address] Leukocytes [#/volume] correc isaiah for nucleated erythrocytes in Blood by Automated counOrdered By: Edwin Mckinney on 05-28-2023 WBC corrected for nucl RBC Auto (Bld) [#/Vol] 12.5 10*3/uL 4.1-10.5 [facility] Leukocytes [#/volume] in Blo od by Automated countOrdered By: Edwin Mckinney on 05-28-2023 WBC (Bld) [#/Vol] 12.5 10*3/uL High 4.1-10.5 [facility] Comment on above: Performed By: #### C BC #### [address] Lymphocytes [#/volume] in Bl ood by Automated countOrdered By: Edwin Mckinney on 05-28-2023 Lymphocytes (Bld) [#/Vol] 1.8 10*3/uL Normal 1.00-4.8 [facility] Comment on above: Performed By: #### C BC #### [address] Lymphocytes/100 leukocytes i n Blood by Automated countOrdered By: Ewdin Mckinney on 05-28-2023 Lymphocytes/100 WBC (Bld) 14.6 % Normal . [facility] Comment on above: Performed By: #### C BC #### [address] MCH [Entitic mass] by Automa isaiah countOrdered By: Edwin Mckinney on 05-28-2023 MCH (RBC) [Entitic mass] 32.6 pg Normal 27.5-35.2 [facility] Comment on above: Performed By: #### C BC #### [address] MCHC Auto (RBC) [Mass/Vol]Or dered By: Edwin Mckinney on 05-28-2023 MCHC (RBC) [Mass/Vol] 33.5 g/dL 32.5-35.6 [facility] MCV [Entitic volume] by Auto mated countOrdered By: Edwin Mckinney on 05-28-2023 MCV (RBC) [Entitic vol] 97.3 fL Normal 83.5-101 [facility] Comment on above: Performed By: #### C BC #### [address] Monocyte distribution width [Entitic volume] in Blood by AutomatedOrdered By: Edwin Mckinney on 05-28-2023 Monocyte distribution width Auto (Bld) [Entitic vol] 21.69 % 0.00-20.00 [facility] Comment on above: For adults in ED, MD W > 20.0 may be associated with a higher risk of sepsis during the first 12 hrs of hospital admission Neutrophils [#/volume] in Bl ood by Automated countOrdered By: Edwin Mckinney on 05-28-2023 Neutrophils (Bld) [#/Vol] 9.2 10*3/uL High 1.8-7.7 [facility] Comment on above: Performed By: #### C BC #### [facility] [address] [place] [address] No Panel InformationOrdered By: Edwin Mckinney on 05-28-2023 Estimated GFR (CKD-EPI) 57.540 mL/Min [facility] Creatinine Clearance (Chem 73.58 [facility] Nucleated erythrocytes [Pres ence] in Blood by Automated countOrdered By: Edwin Mckinney on 05-28-2023 Nucleated RBC Auto Ql (Bld) 0.1 /100{WBC} 0-0.5 [facility] Partial Thromboplastin Timeo n 05-28-2023 aPTT Coag (Bld) [Time] 35.7 s Normal 25.1-36.5 [facility] Comment on above: Result Comment: A he matocrit value greater than 55% may lead to inaccurate results in coagulation testing. Patients having hematocrit values >55% require a special collection tube for coagulation studies. Please contact the laboratory at [phone] for redraw instructions. PERFORMED BY: [place] [address] PATHOLOGIST INSURANCE VERIFICATION SPECIALIST ROBERTO OCAMPO M.D. Performed By: #### P TT, HEPATIC, BMP, PT #### [facility] [address] [place] [address] Platelet mean volume [Entiti c volume] in Blood by Automated countOrdered By: Edwin Mckinney on 05-28-2023 Platelet mean volume (Bld) [Entitic vol] 9.3 fL Normal 6.6-10.1 [facility] Comment on above: Performed By: #### C BC #### [address] Platelets [#/volume] in Bloo d by Automated countOrdered By: Edwin Mckinney on 05-28-2023 Platelets (Bld) [#/Vol] 296 10*3/uL Normal 150-450 [facility] Comment on above: Performed By: #### C BC #### [facility] [address] Potassium [Moles/volume] in Serum or PlasmaOrdered By: Edwin Mckinney on 05-28-2023 Potassium [Moles/Vol] 4.1 mmol/L Normal 3.5-5.1 [facility] Comment on above: Performed By: #### P TT, HEPATIC, BMP, PT #### [facility] [address] Protein [Mass/volume] in Ser um or PlasmaOrdered By: Edwin Mckinney on 05-28-2023 Protein [Mass/Vol] 8.5 g/dL Normal 6.4-8.9 [facility] Comment on above: Performed By: #### P TT, HEPATIC, BMP, PT #### [facility] [address] Prothrombin time (PT)Ordered By: Edwin Mckinney on 05-28-2023 PT Coag (PPP) [Time] 16.2 s High 9.0-12.9 [facility] Comment on above: A hematocrit value g reater than 55% may lead to inaccurate results in coagulation testing. Patients having hematocrit values >55% require a special collection tube for coagulation studies. Please contact the laboratory at [phone] for redraw instructions. Result Comment: A he matocrit value greater than 55% may lead to inaccurate results in coagulation testing. Patients having hematocrit values >55% require a special collection tube for coagulation studies. Please contact the laboratory at [phone] for redraw instructions. Performed By: #### P TT, HEPATIC, BMP, PT #### [facility] [address] Serum globulin measurement b y calculation (mass/volume)Ordered By: Edwin Mckinney on 05-28-2023 Globulin (S) [Mass/Vol] 4.2 g/dL Normal [facility] Comment on above: Performed By: #### P TT, HEPATIC, BMP, PT #### [facility] [address] [place] [address] Serum or plasma albumin/glob ulin mass ratioOrdered By: Edwin Mckinney on 05-28-2023 Albumin/Globulin [Mass ratio] 1.0 {ratio} Normal [facility] Comment on above: Performed By: #### P TT, HEPATIC, BMP, PT #### [facility] [address] [place] [address] Serum or plasma anion gap de terminationOrdered By: Edwin Mckinney on 05-28-2023 Anion gap [Moles/Vol] 10.2 mmol/L Normal 6.0-15.0 [facility] Comment on above: Performed By: #### P TT, HEPATIC, BMP, PT #### [address] Serum or plasma non-glucuron idated bilirubin measurement (mass/volume)Ordered By: Edwin Mckinney on 05-28-2023 Bilirubin.indirect [Mass/Vol] 0.8 mg/dL [facility] Sodium [Moles/volume] in Ser um or PlasmaOrdered By: Edwin Mckinnye on 05-28-2023 Sodium [Moles/Vol] 139 mmol/L Normal 136-145 [facility] Comment on above: Performed By: #### P TT, HEPATIC, BMP, PT #### [address] Urea nitrogen [Mass/volume] in Serum or PlasmaOrdered By: Edwin Mckinney on 05-28-2023 Urea nitrogen [Mass/Vol] 24 mg/dL Normal 7-25 [facility] Comment on above: Performed By: #### P TT, HEPATIC, BMP, PT #### [facility] [address] [place] [address] XR chest 1V portableon 05-28 XR chest 1V portable [facility] Main [place] [address] [place] [address] XRay Report Signed Patient: Rob Ray MR#: [id number] 0 : 1965 Acct:[id number] Age/Sex: 58 / M ADM Date: 05/28/23 Loc: ER Room: Type: [facility] ER Attending Dr: Copies to: Edwin Mckinney [...] Kulwinder Miller M.D.05/28/2023 2:32 PM Dictation Location: [place] [address] Transcribed By: [facility] 05/28/23 1432 Dictated By: Kulwinder Miller DO 05/28/23 1432 Signed By: 05/28/23 1432 Normal [facility] XR foot RT min 3V*on 024 XR foot RT min 3V* [facility] [place] [address] XRay Report Signed Patient: Rob Ray MR#: [id number] 0 : 1965 Acct:[id number] Age/Sex: 58 / M ADM Date: 05/28/23 Loc: ER Room: Type: [facility] ER Attending Dr: Copies to: Edwin Mckinney [...] Kulwinder Miller M.D.05/28/2023 2:56 PM Dictation Location: [place] [address] Transcribed By: [facility] 05/28/231455 Dictated By: Kulwinder Miller DO 05/28/231452 Signed By: 05/28/231455 Normal [facility] Basic Metabolic Panelon 05-07 Anion gap [Moles/Vol] 10.9 mmol/L Normal 6.0-15.0 [facility] Comment on above: Performed By: #### B PATRICIA, CBC #### [address] Calcium [Mass/Vol] 8.7 mg/dL Normal 8.6-10.3 [facility] Comment on above: Performed By: #### B MP, CBC #### [address] Chloride [Moles/Vol] 106 mmol/L Normal 98-107 [facility] Comment on above: Performed By: #### B MP, CBC #### [address] CO2 [Moles/Vol] 25.9 mmol/L Normal 21.0-31.0 [facility] Comment on above: Performed By: #### B MP, CBC #### [address] Creatinine [Mass/Vol] 1.40 mg/dL High 0.70-1.30 [facility] Comment on above: Performed By: #### B MP, CBC #### [place] [address] [place] Creatinine Clr Calc Pharmacy 76.19 Normal [facility] Comment on above: Result Comment: PERF ORMED BY: [place] [address] PATHOLOGIST INSURANCE VERIFICATION SPECIALIST ROBERTO OCAMPO M.D. Performed By: #### B MP, CBC #### [place] [address] [place] GFR/1.73 sq M.predicted MDRD (S/P/Bld) [Vol rate/Area] 57.540 mL/min/{1.73_m2} Normal [facility] Comment on above: Performed By: #### B MP, CBC #### [address] Glucose [Mass/Vol] 95 mg/dL Normal 70-100 [facility] Comment on above: Result Comment: [facility] Glucose Reference Range is dependent on time and content of last meal. Glucose of more than 200 mg/dL in a nonstressed, ambulatory subject supports the diagnosis of Diabetes Mellitus. ADA recommended reference range Performed By: #### B MP, CBC #### [address] Potassium [Moles/Vol] 3.8 mmol/L Normal 3.5-5.1 [facility] Comment on above: Performed By: #### B MP, CBC #### [place] [address] [place] Sodium [Moles/Vol] 139 mmol/L Normal 136-145 [facility] Comment on above: Performed By: #### B MP, CBC #### [address] Urea nitrogen [Mass/Vol] 32 mg/dL High 7-25 [facility] Comment on above: Performed By: #### B MP, CBC #### [address] Complete Blood Count Auto Di ffon 05-27-2023 Basophils (Bld) [#/Vol] 0.1 10*3/uL Normal 0.0-0.2 [facility] Comment on above: Result Comment: PERF ORMED BY: [place] [address] PATHOLOGIST INSURANCE VERIFICATION SPECIALIST ROBERTO OCAMPO M.D. Performed By: #### B MP, CBC #### [place] [address] [place] Basophils/100 WBC (Bld) 0.8 % Normal . [facility] Comment on above: Performed By: #### B MP, CBC #### [address] Eosinophils (Bld) [#/Vol] 0.1 10*3/uL Normal 0.0-0.45 [facility] Comment on above: Performed By: #### B MP, CBC #### [address] Eosinophils/100 WBC (Bld) 0.8 % Normal . [facility] Comment on above: Performed By: #### B MP, CBC #### [address] Erythrocyte distribution width (RBC) [Ratio] 14.3 % Normal 12.0-14.8 [facility] Comment on above: Performed By: #### B MP, CBC #### [address] Hematocrit (Bld) [Volume fraction] 39.1 % Normal 38.8-50.0 [facility] Comment on above: Performed By: #### B MP, CBC #### [address] Hemoglobin (Bld) [Mass/Vol] 13.1 g/dL Normal 13.0-17.0 [facility] Comment on above: Performed By: #### B MP, CBC #### [address] Lymphocytes (Bld) [#/Vol] 3.2 10*3/uL Normal 1.00-4.8 [facility] Comment on above: Performed By: #### B MP, CBC #### [address] Lymphocytes/100 WBC (Bld) 27.1 % Normal . [facility] Comment on above: Performed By: #### B MP, CBC #### [address] MCH (RBC) [Entitic mass] 32.8 pg Normal 27.5-35.2 [facility] Comment on above: Performed By: #### B MP, CBC #### [address] MCV (RBC) [Entitic vol] 97.9 fL Normal 83.5-101 [facility] Comment on above: Performed By: #### B MP, CBC #### [address] Mean Corpuscular HGB Conc 33.5 g/dL Normal 32.5-35.6 [facility] Comment on above: Performed By: #### B MP, CBC #### [address] Monocytes (Bld) [#/Vol] 1.0 10*3/uL High 0.0-0.8 [facility] Comment on above: Performed By: #### B MP, CBC #### [address] Monocytes/100 WBC (Bld) 8.8 % Normal . [facility] Comment on above: Performed By: #### B MP, CBC #### [address] Neutrophils (Bld) [#/Vol] 7.3 10*3/uL Normal 1.8-7.7 [facility] Comment on above: Performed By: #### B MP, CBC #### [address] Neutrophils/100 WBC (Bld) 62.5 % Normal . [facility] Comment on above: Performed By: #### B MP, CBC #### [address] NRBC% 0.1 /100{WBC} Normal 0-0.5 [facility] Comment on above: Performed By: #### B MP, CBC #### [address] Platelet mean volume (Bld) [Entitic vol] 9.2 fL Normal 6.6-10.1 [facility] Comment on above: Performed By: #### B MP, CBC #### [address] Platelets (Bld) [#/Vol] 235 10*3/uL Normal 150-450 [facility] Comment on above: Performed By: #### B MP, CBC #### [address] RBC (Bld) [#/Vol] 4.00 10*6/uL Normal 3.90-5.60 [facility] Comment on above: Performed By: #### B MP, CBC #### [address] WBC (Bld) [#/Vol] 11.7 10*3/uL High 4.1-10.5 [facility] Comment on above: Performed By: #### B MP, CBC #### [address] Basic Metabolic Panelon 05-07 Anion gap [Moles/Vol] 11.7 mmol/L Normal 6.0-15.0 [facility] Comment on above: Performed By: #### P TT, HEPATIC, BMP, PT #### [address] Calcium [Mass/Vol] 8.8 mg/dL Normal 8.6-10.3 [facility] Comment on above: Performed By: #### P TT, HEPATIC, BMP, PT #### [address] Chloride [Moles/Vol] 108 mmol/L High 98-107 [facility] Comment on above: Performed By: #### P TT, HEPATIC, BMP, PT #### [address] CO2 [Moles/Vol] 24.4 mmol/L Normal 21.0-31.0 [facility] Comment on above: Performed By: #### P TT, HEPATIC, BMP, PT #### [place] [address] [place] Creatinine [Mass/Vol] 1.34 mg/dL High 0.70-1.30 [facility] Comment on above: Performed By: #### P TT, HEPATIC, BMP, PT #### [facility] [address] Creatinine Clr Calc Pharmacy 81.59 Normal [facility] Comment on above: Result Comment: PERF ORMED BY: [place] [address] PATHOLOGIST INSURANCE VERIFICATION SPECIALIST ROBERTO OCAMPO M.D. Performed By: #### P TT, HEPATIC, BMP, PT #### [place] [address] [place] GFR/1.73 sq M.predicted MDRD (S/P/Bld) [Vol rate/Area] mL/min/{1.73_m2} Normal [facility] Comment on above: Performed By: #### P TT, HEPATIC, BMP, PT #### [address] Glucose [Mass/Vol] 115 mg/dL High 70-100 [facility] Comment on above: Result Comment: [place] Glucose Reference Range is dependent on time and content of last meal. Glucose of more than 200 mg/dL in a nonstressed, ambulatory subject supports the diagnosis of Diabetes Mellitus. ADA recommended reference range Performed By: #### P TT, HEPATIC, BMP, PT #### [place] [address] [place] Potassium [Moles/Vol] 4.1 mmol/L Normal 3.5-5.1 [facility] Comment on above: Performed By: #### P TT, HEPATIC, BMP, PT #### [place] [address] [place] Sodium [Moles/Vol] 140 mmol/L Normal 136-145 [facility] Comment on above: Performed By: #### P TT, HEPATIC, BMP, PT #### [facility] [address] [place] [address] [place] Urea nitrogen [Mass/Vol] 33 mg/dL High 7-25 [facility] Comment on above: Performed By: #### P TT, HEPATIC, BMP, PT #### [address] Blood Cultureon 05-26-2023 Bacteria identified Cx Nom (Bld) NO GROWTH 5 DAYS PERFORMED BY: [place] [address] PATHOLOGIST INSURANCE VERIFICATION SPECIALIST ROBERTO OCAMPO M.D. Normal [facility] Comment on above: Performed By: #### C UBLD #### [address] Complete Blood Count Auto Di ffon 05-26-2023 Basophils (Bld) [#/Vol] 0.0 10*3/uL Normal 0.0-0.2 [facility] Comment on above: Result Comment: PERF ORMED BY: [place] [address] PATHOLOGIST INSURANCE VERIFICATION SPECIALIST ROBERTO OCAMPO M.D. Performed By: #### P TT, HEPATIC, BMP, PT #### [address] Basophils/100 WBC (Bld) 0.1 % Normal . [facility] Comment on above: Performed By: #### P TT, HEPATIC, BMP, PT #### [address] Eosinophils (Bld) [#/Vol] 0.0 10*3/uL Normal 0.0-0.45 [facility] Comment on above: Performed By: #### P TT, HEPATIC, BMP, PT #### [address] Eosinophils/100 WBC (Bld) 0.0 % Normal . [facility] Comment on above: Performed By: #### P TT, HEPATIC, BMP, PT #### [address] Erythrocyte distribution width (RBC) [Ratio] 14.3 % Normal 12.0-14.8 [facility] Comment on above: Performed By: #### P TT, HEPATIC, BMP, PT #### [address] Hematocrit (Bld) [Volume fraction] 36.9 % Low 38.8-50.0 [facility] Comment on above: Performed By: #### P TT, HEPATIC, BMP, PT #### [address] Hemoglobin (Bld) [Mass/Vol] 12.1 g/dL Low 13.0-17.0 [facility] Comment on above: Performed By: #### P TT, HEPATIC, BMP, PT #### [address] Lymphocytes (Bld) [#/Vol] 2.0 10*3/uL Normal 1.00-4.8 [facility] Comment on above: Performed By: #### P TT, HEPATIC, BMP, PT #### [address] Lymphocytes/100 WBC (Bld) 11.4 % Normal . [facility] Comment on above: Performed By: #### P TT, HEPATIC, BMP, PT #### [address] MCH (RBC) [Entitic mass] 32.2 pg Normal 27.5-35.2 [facility] Comment on above: Performed By: #### P TT, HEPATIC, BMP, PT #### [address] MCV (RBC) [Entitic vol] 98.1 fL Normal 83.5-101 [facility] Comment on above: Performed By: #### P TT, HEPATIC, BMP, PT #### [address] Mean Corpuscular HGB Conc 32.9 g/dL Normal 32.5-35.6 [facility] Comment on above: Performed By: #### P TT, HEPATIC, BMP, PT #### [address] Monocytes (Bld) [#/Vol] 1.4 10*3/uL High 0.0-0.8 [facility] Comment on above: Performed By: #### P TT, HEPATIC, BMP, PT #### [address] Monocytes/100 WBC (Bld) 7.9 % Normal . [facility] Comment on above: Performed By: #### P TT, HEPATIC, BMP, PT #### [address] Neutrophils (Bld) [#/Vol] 14.0 10*3/uL High 1.8-7.7 [facility] Comment on above: Performed By: #### P TT, HEPATIC, BMP, PT #### [address] Neutrophils/100 WBC (Bld) 80.6 % Normal . [facility] Comment on above: Performed By: #### P TT, HEPATIC, BMP, PT #### [address] NRBC% 0.1 /100{WBC} Normal 0-0.5 [facility] Comment on above: Performed By: #### P TT, HEPATIC, BMP, PT #### [address] Platelet mean volume (Bld) [Entitic vol] 9.4 fL Normal 6.6-10.1 [facility] Comment on above: Performed By: #### P TT, HEPATIC, BMP, PT #### [address] Platelets (Bld) [#/Vol] 233 10*3/uL Normal 150-450 [facility] Comment on above: Performed By: #### P TT, HEPATIC, BMP, PT #### [address] RBC (Bld) [#/Vol] 3.77 10*6/uL Low 3.90-5.60 [facility] Comment on above: Performed By: #### P TT, HEPATIC, BMP, PT #### [address] WBC (Bld) [#/Vol] 17.3 10*3/uL High 4.1-10.5 [facility] Comment on above: Performed By: #### P TT, HEPATIC, BMP, PT #### [address] Basic Metabolic Panelon 05-07 Anion gap [Moles/Vol] 12.1 mmol/L Normal 6.0-15.0 [facility] Comment on above: Performed By: #### B MP, CBC #### [address] Calcium [Mass/Vol] 8.6 mg/dL Normal 8.6-10.3 [facility] Comment on above: Performed By: #### B MP, CBC #### [address] Chloride [Moles/Vol] 107 mmol/L Normal 98-107 [facility] Comment on above: Performed By: #### B MP, CBC #### [address] CO2 [Moles/Vol] 21.6 mmol/L Normal 21.0-31.0 [facility] Comment on above: Performed By: #### B MP, CBC #### [address] Creatinine [Mass/Vol] 1.29 mg/dL Normal 0.70-1.30 [facility] Comment on above: Performed By: #### B MP, CBC #### [place] [address] [place] Creatinine Clr Calc Pharmacy 84.75 Normal [facility] Comment on above: Performed By: #### B MP, CBC #### [place] [address] [place] GFR/1.73 sq M.predicted MDRD (S/P/Bld) [Vol rate/Area] mL/min/{1.73_m2} Normal [facility] Comment on above: Performed By: #### B MP, CBC #### [address] Glucose [Mass/Vol] 194 mg/dL High 70-100 [facility] Comment on above: Result Comment: [facility] Glucose Reference Range is dependent on time and content of last meal. Glucose of more than 200 mg/dL in a nonstressed, ambulatory subject supports the diagnosis of Diabetes Mellitus. ADA recommended reference range Performed By: #### B MP, CBC #### [address] Potassium [Moles/Vol] 3.7 mmol/L Normal 3.5-5.1 [facility] Comment on above: Performed By: #### B MP, CBC #### [address] Sodium [Moles/Vol] 137 mmol/L Normal 136-145 [facility] Comment on above: Performed By: #### B MP, CBC #### [address] Urea nitrogen [Mass/Vol] 27 mg/dL High 7-25 [facility] Comment on above: Performed By: #### B MP, CBC #### [address] Complete Blood Count Auto Di ffon 05-25-2023 Basophils (Bld) [#/Vol] 0.0 10*3/uL Normal 0.0-0.2 [facility] Comment on above: Result Comment: PERF ORMED BY: [place] [address] PATHOLOGIST INSURANCE VERIFICATION SPECIALIST ROBERTO OCAMPO M.D. Performed By: #### B MP, CBC #### [address] Basophils/100 WBC (Bld) 0.2 % Normal . [facility] Comment on above: Performed By: #### B MP, CBC #### [address] Eosinophils (Bld) [#/Vol] 0.0 10*3/uL Normal 0.0-0.45 [facility] Comment on above: Performed By: #### B MP, CBC #### [address] Eosinophils/100 WBC (Bld) 0.0 % Normal . [facility] Comment on above: Performed By: #### B MP, CBC #### [address] Erythrocyte distribution width (RBC) [Ratio] 14.3 % Normal 12.0-14.8 [facility] Comment on above: Performed By: #### B MP, CBC #### [address] Hematocrit (Bld) [Volume fraction] 37.6 % Low 38.8-50.0 [facility] Comment on above: Performed By: #### B MP, CBC #### [address] Hemoglobin (Bld) [Mass/Vol] 12.7 g/dL Low 13.0-17.0 [facility] Comment on above: Performed By: #### B MP, CBC #### [address] Lymphocytes (Bld) [#/Vol] 0.9 10*3/uL Low 1.00-4.8 [facility] Comment on above: Performed By: #### B MP, CBC #### [address] Lymphocytes/100 WBC (Bld) 5.4 % Normal . [facility] Comment on above: Performed By: #### B MP, CBC #### [address] MCH (RBC) [Entitic mass] 33.1 pg Normal 27.5-35.2 [facility] Comment on above: Performed By: #### B MP, CBC #### [address] MCV (RBC) [Entitic vol] 97.6 fL Normal 83.5-101 [facility] Comment on above: Performed By: #### B MP, CBC #### [facility] [address] Mean Corpuscular HGB Conc 33.9 g/dL Normal 32.5-35.6 [facility] Comment on above: Performed By: #### B MP, CBC #### [facility] [address] [place] [address] [place] Monocytes (Bld) [#/Vol] 0.6 10*3/uL Normal 0.0-0.8 [facility] Comment on above: Performed By: #### B MP, CBC #### [place] [address] [place] Monocytes/100 WBC (Bld) 3.6 % Normal . [facility] Comment on above: Performed By: #### B MP, CBC #### [place] [address] [place] Neutrophils (Bld) [#/Vol] 15.9 10*3/uL High 1.8-7.7 [facility] Comment on above: Performed By: #### B MP, CBC #### [place] [address] [place] Neutrophils/100 WBC (Bld) 90.8 % Normal . [facility] Comment on above: Performed By: #### B MP, CBC #### [place] [address] [place] NRBC% 0.0 /100{WBC} Normal 0-0.5 [facility] Comment on above: Performed By: #### B MP, CBC #### [facility] [address] [place] [address] [place] Platelet mean volume (Bld) [Entitic vol] 9.3 fL Normal 6.6-10.1 [facility] Comment on above: Performed By: #### B MP, CBC #### [address] Platelets (Bld) [#/Vol] 207 10*3/uL Normal 150-450 [facility] Comment on above: Performed By: #### B MP, CBC #### [facility] [address] RBC (Bld) [#/Vol] 3.85 10*6/uL Low 3.90-5.60 [facility] Comment on above: Performed By: #### B MP, CBC #### [facility] [address] WBC (Bld) [#/Vol] 17.5 10*3/uL High 4.1-10.5 [facility] Comment on above: Performed By: #### B MP, CBC #### [facility] [address] Creatine Kinaseon 05-25-2023 CK [Catalytic activity/Vol] 198 U/L Normal 30-223 [facility] Comment on above: Performed By: #### B MP, CBC #### [address] ECG 12 lead ECGon 05-25-2023 ECG 12 lead ECG [facility] [place] [address] Electrocardiograph Report Signed Patient: Rob Ray MR#: [id number] 0 : 1965 Acct:[id number] Age/Sex: 58 / M ADM Date: 05/24/23 Loc: Room: [address] [place] [address] Type: ADM IN Attending Dr: Arturo Dolan [...] Paz MD 0 05/25/23 1440 Normal [facility] echo transthoracicon [facility] echo transthoracic [facility] [place] [address] Echocardiogram Signed Patient: Rob Ray MR#: [id number] 0 : 1965 Acct:[id number] Age/Sex: 58 / M ADM Date: 05/24/23 Loc: Room: [address] [place] [address] Type: ADM IN Attending Dr: Arturo Dolan DO Ordering Provider: Arturo Dolan DO Date of Service: 05/24/23 [facility] echo transthoracic: new A-Fib with [...] Linh Paz MD 05/25/23 1150 Normal [facility] Magnesiumon 05-25-2023 Magnesium [Mass/Vol] 1.9 mg/dL Normal 1.9-2.7 [facility] Comment on above: Result Comment: PERF ORMED BY: [facility] [address] [place] [address] PATHOLOGIST INSURANCE VERIFICATION SPECIALIST ROBERTO OCAMPO M.D. Performed By: #### B JAYE GOMEZ #### [facility] [address] Troponin I High Sensitivityo n 05-25-2023 Troponin I High Sensitivity 7.0 pg/mL Normal 0.0-20.0 [facility] Comment on above: Result Comment: PERF ORMED BY: [place] [address] PATHOLOGIST INSURANCE VERIFICATION SPECIALIST ROBERTO OCAMPO M.D. Performed By: #### B MP, CBC #### [facility] [address] [place] [address] A1C with Estimated Average G luon 05-24-2023 Glucose [Mass/Vol] 131 mg/dL Normal [facility] Comment on above: Result Comment: PERF ORMED BY: [place] [address] PATHOLOGIST INSURANCE VERIFICATION SPECIALIST ROBERTO OCAMPO M.D. Performed By: #### P TT, HEPATIC, BMP, PT #### [address] HbA1c (Bld) [Mass fraction] 6.2 % High 4.3-5.6 [facility] Comment on above: Result Comment: Incr eased risk for diabetes: 5.7 - 6.4 diabetes: >6.4 glycemic control for adults with diabetes: <7.0 Performed By: #### P TT, HEPATIC, BMP, PT #### [facility] [address] [place] [address] Activated partial thrombopla stin time (aPTT) in platelet poor plasma by coagulation aOrdered By: Ria Talamantes on 05-24-2023 aPTT Coag (PPP) [Time] 27.5 s 25.1-36.5 [facility] Comment on above: A hematocrit value g reater than 55% may lead to inaccurate results in coagulation testing. Patients having hematocrit values >55% require a special collection tube for coagulation studies. Please contact the laboratory at [phone] for redraw instructions. Aerobic Cultureon 05-24-2023 Aerobic Culture Result Tab Codes Moderate Normal Respiratory [place] 2 Days Gram Stain Result 1+ Gram Positive Cocci in Clusters 1+ Gram Negative Bacilli 1+ White Blood Cells 1+ Epithelial Cells * This is a corrected result. * A prior result that was reported as final has been changed. PERFORMED BY: [place] [address] PATHOLOGIST INSURANCE VERIFICATION SPECIALIST ROBERTO OCAMPO M.D. Normal [facility] Comment on above: Performed By: #### P TT, HEPATIC, BMP, PT #### [address] Automated basophil %Ordered By: Ria Talamantes on 05-24-2023 Basophils/100 WBC (Bld) 0.5 % Normal . [facility] Comment on above: Performed By: #### B MP, CBC #### [address] Automated basophil countOrde red By: Ria Talamantes on 05-24-2023 Basophils (Bld) [#/Vol] 0.1 10*3/uL Normal 0.0-0.2 [facility] Comment on above: Result Comment: PERF ORMED BY: [place] [address] PATHOLOGIST INSURANCE VERIFICATION SPECIALIST ROBERTO OCAMPO M.D. Performed By: #### B MP, CBC #### [address] Automated blood monocyte cou ntOrdered By: Ria Talamantes on 05-24-2023 Monocytes (Bld) [#/Vol] 0.9 10*3/uL High 0.0-0.8 [facility] Comment on above: Performed By: #### B MP, CBC #### [address] Automated eosinophil %Ordere d By: Ria Talamantes on 05-24-2023 Eosinophils/100 WBC (Bld) 0.9 % Normal . [facility] Comment on above: Performed By: #### B MP, CBC #### [address] Automated eosinophil countOr dered By: Ria Talamantes on 05-24-2023 Eosinophils (Bld) [#/Vol] 0.1 10*3/uL Normal 0.0-0.45 [facility] Comment on above: Performed By: #### B MP, CBC #### [address] Automated erythrocytes count in urine sediment (number/area)Ordered By: Ria Talamantes on 05-24-2023 RBC Auto (Urine sed) [#/Area] None seen [HPF] 0-4 [facility] Automated leukocytes count i n urine sediment (number/area)Ordered By: Ria Talamantes on 05-24-2023 WBC Auto (Urine sed) [#/Area] None seen [HPF] 0-4 [facility] Automated monocyte %Ordered By: Ria Talamantes on 05-24-2023 Monocytes/100 WBC (Bld) 5.7 % Normal . [facility] Comment on above: Performed By: #### B MP, CBC #### [address] Automated neutrophil %Ordere d By: Ria Talamantes on 05-24-2023 Neutrophils/100 WBC (Bld) 86.6 % Normal . [facility] Comment on above: Performed By: #### B MP, CBC #### [address] Automated urine color determ inationOrdered By: Ria Talamantes on 05-24-2023 Color (U) Yellow Normal Yellow [facility] Comment on above: Order Comment: Name Collection Type:: Clean-Voided Midstream Performed By: #### P TT, HEPATIC, BMP, PT #### [facility] [address] [place] [address] BNP ser/plasOrdered By: Cuca Talamantes on 05-24-2023 Natriuretic peptide B (Bld) [Mass/Vol] 221.0 pg/mL High 5-100 [facility] Comment on above: Result Comment: PERF ORMED BY: [place] [address] PATHOLOGIST INSURANCE VERIFICATION SPECIALIST ROBERTO OCAMPO M.D. Performed By: #### B MP, CBC #### [address] Basic Metabolic Panelon 05-06 Creatinine Clr Calc Pharmacy 79.52 Normal [facility] Comment on above: Result Comment: PERF ORMED BY: [place] [address] PATHOLOGIST INSURANCE VERIFICATION SPECIALIST ROBERTO OCAMPO M.D. Performed By: #### B MP, CBC #### [address] GFR/1.73 sq M.predicted MDRD (S/P/Bld) [Vol rate/Area] 58.542 mL/min/{1.73_m2} Normal [facility] Comment on above: Performed By: #### B MP, CBC #### [address] Bilirubin Test strip Ql (U)O rdered By: Ria Talamantes on 05-24-2023 Bilirubin Ql (U) Negative Negative [facility] Blood Cultureon 05-24-2023 Bacteria identified Cx Nom (Bld) NO GROWTH 5 DAYS PERFORMED BY: [place] [address] PATHOLOGIST INSURANCE VERIFICATION SPECIALIST ROBERTO OCAMPO M.D. Normal [facility] Comment on above: Performed By: #### P TT, HEPATIC, BMP, PT #### [address] Bacteria identified Cx Nom (Bld) [...] culture Not detected Group A (Streptococcus pyogenes) [id number] Not detected Group B Strep (Streptococcus agalactiae) [...] at (more content not included)... Normal [facility] Comment on above: Performed By: #### P TT, HEPATIC, BMP, PT #### [facility] [address] COVID CepheidOrdered By: Greg Talamantes on 05-24-2023 SARS-CoV-2 (COVID-19) Ab IA Ql Negative Negative [facility] Comment on above: This is a duplicate Cepheid Xpert Xpress CoV-2/Flu/RSV Plus RNA by RT-PCR result to be used for statistical tracking purpose only. SARS-CoV-2 (COVID-19) RNA PRITESH+probe Ql (Unsp spec) [facility] COVID-19 / Flu A/B / RSV PCR [...] or Cepheid Disclaimer revoked sooner. PERFORMED BY: [place] [id number] PATHOLOGIST INSURANCE VERIFICATION SPECIALIST ROBERTO OCAMPO M.D. Normal [facility] Comment on above: Performed By: #### P TT, HEPATIC, BMP, PT #### [place] [id number] [facility] CT angio chest PE protocolon 05-24-2023 CT angio chest PE protocol [facility] Main [place] [address] [place] [address] CT Scan Report Signed Patient: Rob Ray MR#: [id number] 0 : 1965 Acct:[id number] Age/Sex: 58 / M ADM Date: 05/24/23 Loc: ER Room: Type: [facility] ER Attending Dr: Copies to: Ria Talamantes [...] Kulwinder Miller M.D.05/24/2023 5:17 PM Dictation Location: [place] [address] Transcribed By: [facility] 05/24/231716 Dictated By: Kulwinder Miller DO 05/24/231711 Signed By: 05/24/231716 Normal [facility] Calcium [Mass/volume] in Ser um or PlasmaOrdered By: Ria Talamantes on 05-24-2023 Calcium [Mass/Vol] 9.2 mg/dL Normal 8.6-10.3 [facility] Comment on above: Performed By: #### B MP, CBC #### [address] Carbon dioxide, total [Moles /volume] in Serum or PlasmaOrdered By: Ria Talamantes on 05-24-2023 CO2 [Moles/Vol] 22.1 mmol/L Normal 21.0-31.0 [facility] Comment on above: Performed By: #### B MP, CBC #### [facility] [address] [place] [address] Cepheid COVID PCR Negativeon 05-24-2023 SARS-CoV-2 (COVID-19) RNA PRITESH+probe Ql (Unsp spec) Negative Normal Negative [facility] Comment on above: Result Comment: This is a duplicate Cepheid Xpert Xpress CoV-2/Flu/RSV Plus RNA by RT-PCR result to be used for statistical tracking purpose only. PERFORMED BY: [place] [address] PATHOLOGIST INSURANCE VERIFICATION SPECIALIST ROBERTO OACMPO M.D. Performed By: #### P TT, HEPATIC, BMP, PT #### [facility] [address] [place] [address] [place] Chloride [Moles/volume] in S rafy or PlasmaOrdered By: Ria Talamantes on 05-24-2023 Chloride [Moles/Vol] 105 mmol/L Normal 98-107 [facility] Comment on above: Performed By: #### B MP, CBC #### [facility] [address] [place] [address] Complete Blood Count Auto Di ffon 05-24-2023 Mean Corpuscular HGB Conc 33.8 g/dL Normal 32.5-35.6 [facility] Comment on above: Performed By: #### B MP, CBC #### [address] Monocytes/100 WBC (Bld) 20.36 % High 0.00-20.00 [facility] Comment on above: Result Comment: For adults in ED, MDW > 20.0 may be associated with a higher risk of sepsis during the first 12 hrs of hospital admission Performed By: #### B MP, CBC #### [address] NRBC% 0.0 /100{WBC} Normal 0-0.5 [facility] Comment on above: Performed By: #### B MP, CBC #### [address] Creatine Kinaseon 05-24-2023 CK [Catalytic activity/Vol] 251 U/L High 30-223 [facility] Comment on above: Performed By: #### P TT, HEPATIC, BMP, PT #### [address] Creatinine [Mass/volume] in Serum or PlasmaOrdered By: Ria Talamantes on 05-24-2023 Creatinine [Mass/Vol] 1.38 mg/dL High 0.70-1.30 [facility] Comment on above: Performed By: #### B MP, CBC #### [address] D-Dimer High Sensitivityon 0 05-24-2023 D-Dimer High Sensitivity 296 ng/mL High 0-243 [facility] Comment on above: Result Comment: [...] coagulation studies. Please contact the laboratory at [phone] for redraw instructions. PERFORMED BY: [place] [address] PATHOLOGIST INSURANCE VERIFICATION SPECIALIST ROBERTO OCAMPO M.D. Performed By: #### P TT, HEPATIC, BMP, PT #### [address] Dipstick and Microscopicon 0 05-24-2023 Appearance (U) Clear Normal Clear [facility] Comment on above: Order Comment: Name Collection Type:: Clean-Voided Midstream Performed By: #### P TT, HEPATIC, BMP, PT #### [place] [address] [place] Bacteria,Urine None Seen Normal None Seen [facility] Comment on above: Order Comment: Name Collection Type:: Clean-Voided Midstream Performed By: #### P TT, HEPATIC, BMP, PT #### [address] Bilirubin,Urine Negative Normal Negative [facility] Comment on above: Order Comment: Name Collection Type:: Clean-Voided Midstream Performed By: #### P TT, HEPATIC, BMP, PT #### [address] Glucose Ql (U) Normal Normal Normal [facility] Comment on above: Order Comment: Name Collection Type:: Clean-Voided Midstream Performed By: #### P TT, HEPATIC, BMP, PT #### [place] [id number] [place] Hyaline Casts,Urine 0-8 Normal 0-8 [facility] Comment on above: Order Comment: Name Collection Type:: Clean-Voided Midstream Result Comment: PERF ORMED BY: [place] [address] PATHOLOGIST INSURANCE VERIFICATION SPECIALIST ROBERTO OCAMPO M.D. Performed By: #### P TT, HEPATIC, BMP, PT #### [address] Ketones Ql (U) Negative Normal Negative [facility] Comment on above: Order Comment: Name Collection Type:: Clean-Voided Midstream Performed By: #### P TT, HEPATIC, BMP, PT #### [address] Leukocyte esterase Test strip Ql (U) Negative Normal Negative [facility] Comment on above: Order Comment: Name Collection Type:: Clean-Voided Midstream Performed By: #### P TT, HEPATIC, BMP, PT #### [address] Nitrite,Urine Negative Normal Negative [facility] Comment on above: Order Comment: Name Collection Type:: Clean-Voided Midstream Performed By: #### P TT, HEPATIC, BMP, PT #### [address] Occult Blood,Urine Negative Normal Negative [facility] Comment on above: Order Comment: Name Collection Type:: Clean-Voided Midstream Result Comment: PERF ORMED BY: [place] [address] PATHOLOGIST INSURANCE VERIFICATION SPECIALIST ROBERTO OCAMPO M.D. Performed By: #### P TT, HEPATIC, BMP, PT #### [address] RBC,Urine None Seen Normal 0-4 [facility] Comment on above: Order Comment: Name Collection Type:: Clean-Voided Midstream Performed By: #### P TT, HEPATIC, BMP, PT #### [address] Specificy [place],Urine 1.021 Normal 1.001-1.03 0 [facility] Comment on above: Order Comment: Name Collection Type:: Clean-Voided Midstream Performed By: #### P TT, HEPATIC, BMP, PT #### [address] [address] [place] Squamous Epithelial Cell,Urine None Seen Normal 0-2 [facility] Comment on above: Order Comment: Name Collection Type:: Clean-Voided Midstream Performed By: #### P TT, HEPATIC, BMP, PT #### [facility] [address] Urobilinogen,Urine Normal Normal Normal [facility] Comment on above: Order Comment: Name Collection Type:: Clean-Voided Midstream Performed By: #### P TT, HEPATIC, BMP, PT #### [facility] [address] WBC,Urine None Seen Normal 0-4 [facility] Comment on above: Order Comment: Name Collection Type:: Clean-Voided Midstream Performed By: #### P TT, HEPATIC, BMP, PT #### [facility] [address] [place] [address] ECG 12 lead ECGon 05-24-2023 ECG 12 lead ECG [facility] Main [place] [address] [place] [address] Electrocardiograph Report Signed Patient: Rob Ray MR#: [id number] 0 : 1965 Acct:[id number] Age/Sex: 58 / M ADM Date: 05/24/23 Loc: Room: [address] [place] [address] Type: ADM IN Attending Dr: Arturo Dolan [...] By Nino Garrido MD 05/24/23 193 Normal [facility] Erythrocyte distribution wid th [Ratio] by Automated countOrdered By: Ria Talamantes on 05-24-2023 Erythrocyte distribution width (RBC) [Ratio] 13.9 % Normal 12.0-14.8 [facility] Comment on above: Performed By: #### B MP, CBC #### [facility] [address] Erythrocytes [#/volume] in B lood by Automated countOrdered By: Ria Talamantes on 05-24-2023 RBC (Bld) [#/Vol] 4.47 10*6/uL Normal 3.90-5.60 [facility] Comment on above: Performed By: #### B MP, CBC #### [facility] [address] Fibrin D-dimer [Presence] in Platelet poor plasma by Latex agglutinationOrdered By: Ria Talamantes on 05-24-2023 Fibrin D-dimer LA Ql (PPP) 296 ng/mL 0-243 [facility] Comment on above: The reference range for [...] coagulation studies. Please contact the laboratory at [phone] for redraw instructions. Free T4 (Free Thyroxine)on 0 05-24-2023 Free T4 [Mass/Vol] 0.88 ng/dL Normal 0.61-1.12 [facility] Comment on above: Performed By: #### P TT, HEPATIC, BMP, PT #### [address] Glucose [Mass/volume] in Ser um or PlasmaOrdered By: Ria Talamantes on 05-24-2023 Glucose [Mass/Vol] 110 mg/dL High 70-100 [facility] Comment on above: ADA recommended refe rence rangeRandom Glucose Reference Range is dependent on time and content of last meal. Glucose of more than 200 mg/dL in a nonstressed, ambulatory subject supports the diagnosis of Diabetes Mellitus. Result Comment: [place] om Glucose Reference Range is dependent on time and content of last meal. Glucose of more than 200 mg/dL in a nonstressed, ambulatory subject supports the diagnosis of Diabetes Mellitus. ADA recommended reference range Performed By: #### B MP, CBC #### [address] Gram Stainon 05-24-2023 Microscopic observation Gram stain Nom (Unsp spec) Gram Stain Result 1+ Gram Positive Cocci in Clusters 1+ Gram Negative Bacilli 1+ White Blood Cells 1+ Epithelial Cells * This is a corrected result. * A prior result that was reported as final has been changed. PERFORMED BY: [place] [id number] PATHOLOGIST INSURANCE VERIFICATION SPECIALIST ROBERTO OCAMPO M.D. Normal [facility] Comment on above: Performed By: #### P TT, HEPATIC, BMP, PT #### [address] Hematocrit [Volume Fraction] of Blood by Automated countOrdered By: Ria Talamantes on 05-24-2023 Hematocrit (Bld) [Volume fraction] 43.2 % Normal 38.8-50.0 [facility] Comment on above: Performed By: #### B MP, CBC #### [facility] [address] Hemoglobin [Mass/volume] in BloodOrdered By: Ria Talamantes on 05-24-2023 Hemoglobin (Bld) [Mass/Vol] 14.6 g/dL Normal 13.0-17.0 [facility] Comment on above: Performed By: #### B MP, CBC #### [facility] [address] INR in Platelet poor plasma by Coagulation assayOrdered By: Ria Talamantes on 05-24-2023 INR Coag (PPP) [Relative time] 1.1 {INR} Normal [facility] Comment on above: INR Therapeutic Rang e A) Pre- and Peroperative OAT started two weeks before surgery. NOT HIP SURGERY: 1.5 - 2.5 HIP SURGERY: 2 - 3B) Primary and secondary prevention of venous THROMBOSIS: 2 - 3C) Active venous thrombosis, pulmonary embolismand prevention of recurrent venous thrombosis: 2 - 3D) Prevention of arterial thromboembolismincluding patients with mechanical heart valves: 3 - 4.5 Result Comment: INR Therapeutic Range A) Pre- [...] [facility] [address] [place] [address] Ketones Auto test strip (U) [Mass/Vol]Ordered By: Ria Talamantes on 05-24-2023 Ketones (U) [Mass/Vol] Negative Negative [facility] Vitaliy Thyroxine (T4)on T4 [Mass/Vol] 6.9 ug/dL Normal 4.5-12.0 [facility] Comment on above: Result Comment: Perf ormed at: CB - [facility] [address] [id number] Insulation Helper: Edwin Nazario PhD, Phone: [phone] PERFORMED BY: [place] [address] PATHOLOGIST INSURANCE VERIFICATION SPECIALIST ROBERTO OCAMPO M.D. Performed By: #### L C T4 #### [facility] , Laboratory - UrinalysisOrder ed By: Ria Talamantes on 05-24-2023 Hyaline casts LM Ql (Urine sed) 0-8 [LPF] 0-8 [facility] Lactate [Moles/volume] in Se rum or PlasmaOrdered By: Ria Talamantes on 05-24-2023 Lactate [Moles/Vol] 1.8 mmol/L Normal 0.5-2.2 [facility] Comment on above: Result Comment: PERF ORMED BY: [place] [address] PATHOLOGIST INSURANCE VERIFICATION SPECIALIST ROBERTO OCAMPO M.D. Performed By: #### P TT, HEPATIC, BMP, PT #### [facility] [address] [place] [address] Leukocytes [#/volume] correc isaiah for nucleated erythrocytes in Blood by Automated counOrdered By: Ria Talamantes on 05-24-2023 WBC corrected for nucl RBC Auto (Bld) [#/Vol] 15.3 10*3/uL 4.1-10.5 [facility] Leukocytes [#/volume] in Blo od by Automated countOrdered By: Ria Talamantes on 05-24-2023 WBC (Bld) [#/Vol] 15.3 10*3/uL High 4.1-10.5 [facility] Comment on above: Performed By: #### B MP, CBC #### [facility] [address] [place] [address] [place] Lymphocytes [#/volume] in Bl ood by Automated countOrdered By: Ria Talamantes on 05-24-2023 Lymphocytes (Bld) [#/Vol] 1.0 10*3/uL Normal 1.00-4.8 [facility] Comment on above: Performed By: #### B MP, CBC #### [facility] [address] [place] [address] Lymphocytes/100 leukocytes i n Blood by Automated countOrdered By: Ria Talamantes on 05-24-2023 Lymphocytes/100 WBC (Bld) 6.3 % Normal . [facility] Comment on above: Performed By: #### B MP, CBC #### [address] MCH [Entitic mass] by Automa isaiah countOrdered By: Ria Talamantes on 05-24-2023 MCH (RBC) [Entitic mass] 32.7 pg Normal 27.5-35.2 [facility] Comment on above: Performed By: #### B MP, CBC #### [address] MCHC Auto (RBC) [Mass/Vol]Or dered By: Ria Talamantes on 05-24-2023 MCHC (RBC) [Mass/Vol] 33.8 g/dL 32.5-35.6 [facility] MCV [Entitic volume] by Auto mated countOrdered By: Ria Talamantes on 05-24-2023 MCV (RBC) [Entitic vol] 96.7 fL Normal 83.5-101 [facility] Comment on above: Performed By: #### B MP, CBC #### [address] Magnesium [Mass/volume] in S rafy or PlasmaOrdered By: Ria Talamantes on 05-24-2023 Magnesium [Mass/Vol] 1.9 mg/dL Normal 1.9-2.7 [facility] Comment on above: Result Comment: PERF ORMED BY: [address] [place] [place] [address] PATHOLOGIST INSURANCE VERIFICATION SPECIALIST ROBERTO OCAMPO M.D. Performed By: #### B MP, CBC #### [address] Monocyte distribution width [Entitic volume] in Blood by AutomatedOrdered By: Ria Talamantes on 05-24-2023 Monocyte distribution width Auto (Bld) [Entitic vol] 20.36 % 0.00-20.00 [facility] Comment on above: For adults in ED, MD W > 20.0 may be associated with a higher risk of sepsis during the first 12 hrs of hospital admission Neutrophils [#/volume] in Bl ood by Automated countOrdered By: Ria Talamantes on 05-24-2023 Neutrophils (Bld) [#/Vol] 13.3 10*3/uL High 1.8-7.7 [facility] Comment on above: Performed By: #### B MP, CBC #### [facility] [address] [place] [address] Nitrite Test strip Ql (U)Ord ered By: Ria Talamantes on 05-24-2023 Nitrite Ql (U) Negative Negative [facility] No Panel InformationOrdered By: Ria Talamantes on 05-24-2023 Estimated GFR (CKD-EPI) 58.542 mL/Min [facility] Creatinine Clearance (Chem 79.52 [facility] Nucleated erythrocytes [Pres ence] in Blood by Automated countOrdered By: Ria Talamantes on 05-24-2023 Nucleated RBC Auto Ql (Bld) 0.0 /100{WBC} 0-0.5 [facility] Partial Thromboplastin Timeo n 05-24-2023 aPTT Coag (Bld) [Time] 27.5 s Normal 25.1-36.5 [facility] Comment on above: Result Comment: A he matocrit value greater than 55% may lead to inaccurate results in coagulation testing. Patients having hematocrit values >55% require a special collection tube for coagulation studies. Please contact the laboratory at [phone] for redraw instructions. PERFORMED BY: [place] [id number] PATHOLOGIST INSURANCE VERIFICATION SPECIALIST ROBERTO OCAMPO M.D. Performed By: #### P TT, HEPATIC, BMP, PT #### [facility] [address] [place] [address] Platelet mean volume [Entiti c volume] in Blood by Automated countOrdered By: Ria Talamantes on 05-24-2023 Platelet mean volume (Bld) [Entitic vol] 9.6 fL Normal 6.6-10.1 [facility] Comment on above: Performed By: #### B MP, CBC #### [facility] [address] Platelets [#/volume] in Bloo d by Automated countOrdered By: Ria Talamantes on 05-24-2023 Platelets (Bld) [#/Vol] 246 10*3/uL Normal 150-450 [facility] Comment on above: Performed By: #### B MP, CBC #### [facility] [address] Potassium [Moles/volume] in Serum or PlasmaOrdered By: Ria Talamantes on 05-24-2023 Potassium [Moles/Vol] 4.1 mmol/L Normal 3.5-5.1 [facility] Comment on above: Performed By: #### B MP, CBC #### [facility] [address] Prothrombin time (PT)Ordered By: Ria Talamantes on 05-24-2023 PT Coag (PPP) [Time] 12.8 s Normal 9.0-12.9 [facility] Comment on above: A hematocrit value g reater than 55% may lead to inaccurate results in coagulation testing. Patients having hematocrit values >55% require a special collection tube for coagulation studies. Please contact the laboratory at [phone] for redraw instructions. Result Comment: A he matocrit value greater than 55% may lead to inaccurate results in coagulation testing. Patients having hematocrit values >55% require a special collection tube for coagulation studies. Please contact the laboratory at [phone] for redraw instructions. Performed By: #### P TT, HEPATIC, BMP, PT #### [address] Serum or plasma anion gap de terminationOrdered By: Ria Talamantes on 05-24-2023 Anion gap [Moles/Vol] 13.0 mmol/L Normal 6.0-15.0 [facility] Comment on above: Performed By: #### B MP, CBC #### [facility] [address] [place] [address] [place] Sodium [Moles/volume] in Ser um or PlasmaOrdered By: Ria Talamantes on 05-24-2023 Sodium [Moles/Vol] 136 mmol/L Normal 136-145 [facility] Comment on above: Performed By: #### B MP, CBC #### [facility] [address] [place] [address] [place] Specific gravity Auto test s trip (U) [Rel density]Ordered By: Ria Talamantes on 05-24-2023 Specific gravity (U) [Rel density] 1.021 1.001-1.03 0 [facility] Squamous epithelial cells de tection in urine sediment by light microscopyOrdered By: Ria Talamantes on 05-24-2023 Epithelial cells.squamous LM Ql (Urine sed) None seen [HPF] 0-2 [facility] Thyroid Stimulating Hormoneo n 05-24-2023 TSH Qn 1.10 m[IU]/L Normal 0.45-5.33 [facility] Comment on above: Result Comment: PERF ORMED BY: [place] [address] PATHOLOGIST INSURANCE VERIFICATION SPECIALIST ROBERTO OCAMPO M.D. Performed By: #### P TT, HEPATIC, BMP, PT #### [facility] [address] [place] [address] [place] Troponin I High Sensitivityo n 05-24-2023 Troponin I High Sensitivity 11.5 pg/mL Normal 0.0-20.0 [facility] Comment on above: Result Comment: PERF ORMED BY: [place] [address] PATHOLOGIST INSURANCE VERIFICATION SPECIALIST ROBERTO OCAMPO M.D. Performed By: #### P TT, HEPATIC, BMP, PT #### [facility] [address] Troponin I High Sensitivity 8.9 pg/mL Normal 0.0-20.0 [facility] Comment on above: Result Comment: PERF ORMED BY: [address] [place] [address] PATHOLOGIST INSURANCE VERIFICATION SPECIALIST ROBERTO OCAMPO M.D. Performed By: #### B MP, CBC #### [address] Troponin I.cardiac [Mass/vol ume] in Serum or Plasma by Detection limit <= 0.01 ng/Ordered By: Ria Talamantes on 05-24-2023 Troponin I.cardiac DL <= 0.01 ng/mL [Mass/Vol] 8.9 pg/mL 0.0-20.0 [facility] Urea nitrogen [Mass/volume] in Serum or PlasmaOrdered By: Ria Talamantes on 05-24-2023 Urea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
[2024-01-08 10:33] LABS: Basophils Absolute Auto 0.1 10^3/uL (0.0-0.1); Basophils Percent Auto 0.8 % (0.2-2.0); Eosinophils Absolute Auto 0.1 10^3/uL (0.0-0.7); Eosinophils Percent Auto 1.9 % (0.9-7.0); Hematocrit 47.8 % (42.0-54.0); Hemoglobin 15.2 g/dL (14.0-18.0); Immature Granulocytes Abs Auto 0.02 10^3/uL (0.00-0.03); Immature Granulocytes Pct Auto 0.3 % (0.0-0.5); Lymphocytes Absolute Auto 1.8 10^3/uL (1.2-3.8); Lymphocytes Percent Auto 24.3 % (20.5-60.0); Mean Corpuscular HGB Conc 31.8 g/dL (29.9-35.2); Mean Corpuscular Hemoglobin 30.1 pg (25.9-34.0); Mean Corpuscular Volume 94.7 fL (80.0-94.0); Monocytes Absolute Auto 0.6 10^3/uL (0.3-0.8); Monocytes Percent Auto 8.5 % (1.7-12.0); Neutrophils Absolute Auto 4.7 10^3/uL (1.4-6.5); Neutrophils Percent Auto 64.2 % (43.0-75.0); Platelet Count 258 10^3/uL (150-450); Red Blood Count 5.05 10^6/uL (4.70-6.10); Red Cell Distribution Width 13.9 % (11.0-15.0); White Blood Count 7.3 10^3/uL (4.0-11.0)
[2024-01-08 12:05] LABS: Anion Gap 14.9; BUN Creatinine Ratio 12.3; Calcium 8.7 mg/dL (8.5-10.1); Carbon Dioxide 23.8 mmol/L (21.0-32.0); Chloride 103 mmol/L (98-107); Estimated GFR (African America 53 (>=60); Estimated GFR (Non-African Ame 43 (>=60); Glucose 101 mg/dL (74-106); Potassium 3.7 mmol/L (3.5-5.1); Sodium 138 mmol/L (136-145)
== END 2024-01-08 09:53 | disposition home or self-care (01) ==
LOC: LAB 09:54
PROVIDERS: PCP Family Medicine; Visit Provider Nurse Practitioner Family
DX: I48.19 Other persistent atrial fibrillation (principal)
CPT/HCPCS: 36415; 80048; 85025

== ENCOUNTER 2024-01-14 09:34 | Outpatient (OUT) | payer OTHER, SELFPAY ==
--- OUTSIDE RECORDS SUMMARY | 2024-01-14 09:54 | XMS_ITS | CCD ---
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 Comment on above: Performed By: #### B MP, CBC #### [address] Monocytes/100 WBC (Bld) 8.8 % Normal . [facility] Comment on above: Performed By: #### B MP, CBC #### [address] Neutrophils (Bld) [#/Vol] 7.3 10*3/uL Normal 1.8-7.7 [facility] Comment on above: Performed By: #### B MP, CBC #### [address] Neutrophils/100 WBC (Bld) 62.5 % Normal . [facility] Comment on above: Performed By: #### B MP, CBC #### [address] NRBC% 0.1 /100{WBC} Normal 0-0.5 [facility] Comment on above: Performed By: #### B MP, CBC #### [address] Platelet mean volume (Bld) [Entitic vol] 9.2 fL Normal 6.6-10.1 [facility] Comment on above: Performed By: #### B MP, CBC #### [address] Platelets (Bld) [#/Vol] 235 10*3/uL Normal 150-450 [facility] Comment on above: Performed By: #### B MP, CBC #### [address] RBC (Bld) [#/Vol] 4.00 10*6/uL Normal 3.90-5.60 [facility] Comment on above: Performed By: #### B MP, CBC #### [address] WBC (Bld) [#/Vol] 11.7 10*3/uL High 4.1-10.5 [facility] Comment on above: Performed By: #### B MP, CBC #### [address] Basic Metabolic Panelon 05-07 Anion gap [Moles/Vol] 11.7 mmol/L Normal 6.0-15.0 [facility] Comment on above: Performed By: #### P TT, HEPATIC, BMP, PT #### [address] Calcium [Mass/Vol] 8.8 mg/dL Normal 8.6-10.3 [facility] Comment on above: Performed By: #### P TT, HEPATIC, BMP, PT #### [address] Chloride [Moles/Vol] 108 mmol/L High 98-107 [facility] Comment on above: Performed By: #### P TT, HEPATIC, BMP, PT #### [address] CO2 [Moles/Vol] 24.4 mmol/L Normal 21.0-31.0 [facility] Comment on above: Performed By: #### P TT, HEPATIC, BMP, PT #### [place] [address] [place] Creatinine [Mass/Vol] 1.34 mg/dL High 0.70-1.30 [facility] Comment on above: Performed By: #### P TT, HEPATIC, BMP, PT #### [facility] [address] Creatinine Clr Calc Pharmacy 81.59 Normal [facility] Comment on above: Result Comment: PERF ORMED BY: [place] [address] PATHOLOGIST GUM WORKER ROBERTO OCAMPO M.D. Performed By: #### P TT, HEPATIC, BMP, PT #### [place] [address] [place] GFR/1.73 sq M.predicted MDRD (S/P/Bld) [Vol rate/Area] mL/min/{1.73_m2} Normal [facility] Comment on above: Performed By: #### P TT, HEPATIC, BMP, PT #### [address] Glucose [Mass/Vol] 115 mg/dL High 70-100 [facility] Comment on above: Result Comment: [place] Glucose Reference Range is dependent on time and content of last meal. Glucose of more than 200 mg/dL in a nonstressed, ambulatory subject supports the diagnosis of Diabetes Mellitus. ADA recommended reference range Performed By: #### P TT, HEPATIC, BMP, PT #### [place] [address] [place] Potassium [Moles/Vol] 4.1 mmol/L Normal 3.5-5.1 [facility] Comment on above: Performed By: #### P TT, HEPATIC, BMP, PT #### [place] [address] [place] Sodium [Moles/Vol] 140 mmol/L Normal 136-145 [facility] Comment on above: Performed By: #### P TT, HEPATIC, BMP, PT #### [facility] [address] [place] [address] [place] Urea nitrogen [Mass/Vol] 33 mg/dL High 7-25 [facility] Comment on above: Performed By: #### P TT, HEPATIC, BMP, PT #### [address] Blood Cultureon 05-26-2023 Bacteria identified Cx Nom (Bld) NO GROWTH 5 DAYS PERFORMED BY: [place] [address] PATHOLOGIST GUM WORKER ROBERTO OCAMPO M.D. Normal [facility] Comment on above: Performed By: #### C UBLD #### [address] Complete Blood Count Auto Di ffon 05-26-2023 Basophils (Bld) [#/Vol] 0.0 10*3/uL Normal 0.0-0.2 [facility] Comment on above: Result Comment: PERF ORMED BY: [place] [address] PATHOLOGIST GUM WORKER ROBERTO OCAMPO M.D. Performed By: #### P TT, HEPATIC, BMP, PT #### [address] Basophils/100 WBC (Bld) 0.1 % Normal . [facility] Comment on above: Performed By: #### P TT, HEPATIC, BMP, PT #### [address] Eosinophils (Bld) [#/Vol] 0.0 10*3/uL Normal 0.0-0.45 [facility] Comment on above: Performed By: #### P TT, HEPATIC, BMP, PT #### [address] Eosinophils/100 WBC (Bld) 0.0 % Normal . [facility] Comment on above: Performed By: #### P TT, HEPATIC, BMP, PT #### [address] Erythrocyte distribution width (RBC) [Ratio] 14.3 % Normal 12.0-14.8 [facility] Comment on above: Performed By: #### P TT, HEPATIC, BMP, PT #### [address] Hematocrit (Bld) [Volume fraction] 36.9 % Low 38.8-50.0 [facility] Comment on above: Performed By: #### P TT, HEPATIC, BMP, PT #### [address] Hemoglobin (Bld) [Mass/Vol] 12.1 g/dL Low 13.0-17.0 [facility] Comment on above: Performed By: #### P TT, HEPATIC, BMP, PT #### [address] Lymphocytes (Bld) [#/Vol] 2.0 10*3/uL Normal 1.00-4.8 [facility] Comment on above: Performed By: #### P TT, HEPATIC, BMP, PT #### [address] Lymphocytes/100 WBC (Bld) 11.4 % Normal . [facility] Comment on above: Performed By: #### P TT, HEPATIC, BMP, PT #### [address] MCH (RBC) [Entitic mass] 32.2 pg Normal 27.5-35.2 [facility] Comment on above: Performed By: #### P TT, HEPATIC, BMP, PT #### [address] MCV (RBC) [Entitic vol] 98.1 fL Normal 83.5-101 [facility] Comment on above: Performed By: #### P TT, HEPATIC, BMP, PT #### [address] Mean Corpuscular HGB Conc 32.9 g/dL Normal 32.5-35.6 [facility] Comment on above: Performed By: #### P TT, HEPATIC, BMP, PT #### [address] Monocytes (Bld) [#/Vol] 1.4 10*3/uL High 0.0-0.8 [facility] Comment on above: Performed By: #### P TT, HEPATIC, BMP, PT #### [address] Monocytes/100 WBC (Bld) 7.9 % Normal . [facility] Comment on above: Performed By: #### P TT, HEPATIC, BMP, PT #### [address] Neutrophils (Bld) [#/Vol] 14.0 10*3/uL High 1.8-7.7 [facility] Comment on above: Performed By: #### P TT, HEPATIC, BMP, PT #### [address] Neutrophils/100 WBC (Bld) 80.6 % Normal . [facility] Comment on above: Performed By: #### P TT, HEPATIC, BMP, PT #### [address] NRBC% 0.1 /100{WBC} Normal 0-0.5 [facility] Comment on above: Performed By: #### P TT, HEPATIC, BMP, PT #### [address] Platelet mean volume (Bld) [Entitic vol] 9.4 fL Normal 6.6-10.1 [facility] Comment on above: Performed By: #### P TT, HEPATIC, BMP, PT #### [address] Platelets (Bld) [#/Vol] 233 10*3/uL Normal 150-450 [facility] Comment on above: Performed By: #### P TT, HEPATIC, BMP, PT #### [address] RBC (Bld) [#/Vol] 3.77 10*6/uL Low 3.90-5.60 [facility] Comment on above: Performed By: #### P TT, HEPATIC, BMP, PT #### [address] WBC (Bld) [#/Vol] 17.3 10*3/uL High 4.1-10.5 [facility] Comment on above: Performed By: #### P TT, HEPATIC, BMP, PT #### [address] Basic Metabolic Panelon 05-07 Anion gap [Moles/Vol] 12.1 mmol/L Normal 6.0-15.0 [facility] Comment on above: Performed By: #### B MP, CBC #### [address] Calcium [Mass/Vol] 8.6 mg/dL Normal 8.6-10.3 [facility] Comment on above: Performed By: #### B MP, CBC #### [address] Chloride [Moles/Vol] 107 mmol/L Normal 98-107 [facility] Comment on above: Performed By: #### B MP, CBC #### [address] CO2 [Moles/Vol] 21.6 mmol/L Normal 21.0-31.0 [facility] Comment on above: Performed By: #### B MP, CBC #### [address] Creatinine [Mass/Vol] 1.29 mg/dL Normal 0.70-1.30 [facility] Comment on above: Performed By: #### B MP, CBC #### [place] [address] [place] Creatinine Clr Calc Pharmacy 84.75 Normal [facility] Comment on above: Performed By: #### B MP, CBC #### [place] [address] [place] GFR/1.73 sq M.predicted MDRD (S/P/Bld) [Vol rate/Area] mL/min/{1.73_m2} Normal [facility] Comment on above: Performed By: #### B MP, CBC #### [address] Glucose [Mass/Vol] 194 mg/dL High 70-100 [facility] Comment on above: Result Comment: [facility] Glucose Reference Range is dependent on time and content of last meal. Glucose of more than 200 mg/dL in a nonstressed, ambulatory subject supports the diagnosis of Diabetes Mellitus. ADA recommended reference range Performed By: #### B MP, CBC #### [address] Potassium [Moles/Vol] 3.7 mmol/L Normal 3.5-5.1 [facility] Comment on above: Performed By: #### B MP, CBC #### [address] Sodium [Moles/Vol] 137 mmol/L Normal 136-145 [facility] Comment on above: Performed By: #### B MP, CBC #### [address] Urea nitrogen [Mass/Vol] 27 mg/dL High 7-25 [facility] Comment on above: Performed By: #### B MP, CBC #### [address] Complete Blood Count Auto Di ffon 05-25-2023 Basophils (Bld) [#/Vol] 0.0 10*3/uL Normal 0.0-0.2 [facility] Comment on above: Result Comment: PERF ORMED BY: [place] [address] PATHOLOGIST GUM WORKER ROBERTO OCAMPO M.D. Performed By: #### B MP, CBC #### [address] Basophils/100 WBC (Bld) 0.2 % Normal . [facility] Comment on above: Performed By: #### B MP, CBC #### [address] Eosinophils (Bld) [#/Vol] 0.0 10*3/uL Normal 0.0-0.45 [facility] Comment on above: Performed By: #### B MP, CBC #### [address] Eosinophils/100 WBC (Bld) 0.0 % Normal . [facility] Comment on above: Performed By: #### B MP, CBC #### [address] Erythrocyte distribution width (RBC) [Ratio] 14.3 % Normal 12.0-14.8 [facility] Comment on above: Performed By: #### B MP, CBC #### [address] Hematocrit (Bld) [Volume fraction] 37.6 % Low 38.8-50.0 [facility] Comment on above: Performed By: #### B MP, CBC #### [address] Hemoglobin (Bld) [Mass/Vol] 12.7 g/dL Low 13.0-17.0 [facility] Comment on above: Performed By: #### B MP, CBC #### [address] Lymphocytes (Bld) [#/Vol] 0.9 10*3/uL Low 1.00-4.8 [facility] Comment on above: Performed By: #### B MP, CBC #### [address] Lymphocytes/100 WBC (Bld) 5.4 % Normal . [facility] Comment on above: Performed By: #### B MP, CBC #### [address] MCH (RBC) [Entitic mass] 33.1 pg Normal 27.5-35.2 [facility] Comment on above: Performed By: #### B MP, CBC #### [address] MCV (RBC) [Entitic vol] 97.6 fL Normal 83.5-101 [facility] Comment on above: Performed By: #### B MP, CBC #### [facility] [address] Mean Corpuscular HGB Conc 33.9 g/dL Normal 32.5-35.6 [facility] Comment on above: Performed By: #### B MP, CBC #### [facility] [address] [place] [address] [place] Monocytes (Bld) [#/Vol] 0.6 10*3/uL Normal 0.0-0.8 [facility] Comment on above: Performed By: #### B MP, CBC #### [place] [address] [place] Monocytes/100 WBC (Bld) 3.6 % Normal . [facility] Comment on above: Performed By: #### B MP, CBC #### [place] [address] [place] Neutrophils (Bld) [#/Vol] 15.9 10*3/uL High 1.8-7.7 [facility] Comment on above: Performed By: #### B MP, CBC #### [place] [address] [place] Neutrophils/100 WBC (Bld) 90.8 % Normal . [facility] Comment on above: Performed By: #### B MP, CBC #### [place] [address] [place] NRBC% 0.0 /100{WBC} Normal 0-0.5 [facility] Comment on above: Performed By: #### B MP, CBC #### [facility] [address] [place] [address] [place] Platelet mean volume (Bld) [Entitic vol] 9.3 fL Normal 6.6-10.1 [facility] Comment on above: Performed By: #### B MP, CBC #### [address] Platelets (Bld) [#/Vol] 207 10*3/uL Normal 150-450 [facility] Comment on above: Performed By: #### B MP, CBC #### [facility] [address] RBC (Bld) [#/Vol] 3.85 10*6/uL Low 3.90-5.60 [facility] Comment on above: Performed By: #### B MP, CBC #### [facility] [address] WBC (Bld) [#/Vol] 17.5 10*3/uL High 4.1-10.5 [facility] Comment on above: Performed By: #### B MP, CBC #### [facility] [address] Creatine Kinaseon 05-25-2023 CK [Catalytic activity/Vol] 198 U/L Normal 30-223 [facility] Comment on above: Performed By: #### B MP, CBC #### [address] ECG 12 lead ECGon 05-25-2023 ECG 12 lead ECG [facility] [place] [address] Electrocardiograph Report Signed Patient: Rob Ray MR#: [id number] 0 : 1965 Acct:[id number] Age/Sex: 58 / M ADM Date: 05/24/23 Loc: Room: [address] [place] [address] Type: ADM IN Attending Dr: Arturo Dolan [...] Paz MD 0 05/25/23 1440 Normal [facility] echo transthoracicon [facility] echo transthoracic [facility] [place] [address] Echocardiogram Signed Patient: Rob Ray MR#: [id number] 0 : 1965 Acct:[id number] Age/Sex: 58 / M ADM Date: 05/24/23 Loc: Room: [address] [place] [address] Type: ADM IN Attending Dr: Arturo Dolan DO Ordering Provider: Arturo Dolan DO Date of Service: 05/24/23 [facility] echo transthoracic: new A-Fib with [...] Linh Paz MD 05/25/23 1150 Normal [facility] Magnesiumon 05-25-2023 Magnesium [Mass/Vol] 1.9 mg/dL Normal 1.9-2.7 [facility] Comment on above: Result Comment: PERF ORMED BY: [facility] [address] [place] [address] PATHOLOGIST GUM WORKER ROBERTO OCAMPO M.D. Performed By: #### B JAYE GOMEZ #### [facility] [address] Troponin I High Sensitivityo n 05-25-2023 Troponin I High Sensitivity 7.0 pg/mL Normal 0.0-20.0 [facility] Comment on above: Result Comment: PERF ORMED BY: [place] [address] PATHOLOGIST GUM WORKER ROBERTO OCAMPO M.D. Performed By: #### B MP, CBC #### [facility] [address] [place] [address] A1C with Estimated Average G luon 05-24-2023 Glucose [Mass/Vol] 131 mg/dL Normal [facility] Comment on above: Result Comment: PERF ORMED BY: [place] [address] PATHOLOGIST GUM WORKER ROBERTO OCAMPO M.D. Performed By: #### P TT, HEPATIC, BMP, PT #### [address] HbA1c (Bld) [Mass fraction] 6.2 % High 4.3-5.6 [facility] Comment on above: Result Comment: Incr eased risk for diabetes: 5.7 - 6.4 diabetes: >6.4 glycemic control for adults with diabetes: <7.0 Performed By: #### P TT, HEPATIC, BMP, PT #### [facility] [address] [place] [address] Activated partial thrombopla stin time (aPTT) in platelet poor plasma by coagulation aOrdered By: Ria Talamantes on 05-24-2023 aPTT Coag (PPP) [Time] 27.5 s 25.1-36.5 [facility] Comment on above: A hematocrit value g reater than 55% may lead to inaccurate results in coagulation testing. Patients having hematocrit values >55% require a special collection tube for coagulation studies. Please contact the laboratory at [phone] for redraw instructions. Aerobic Cultureon 05-24-2023 Aerobic Culture Result Tab Codes Moderate Normal Respiratory [place] 2 Days Gram Stain Result 1+ Gram Positive Cocci in Clusters 1+ Gram Negative Bacilli 1+ White Blood Cells 1+ Epithelial Cells * This is a corrected result. * A prior result that was reported as final has been changed. PERFORMED BY: [place] [address] PATHOLOGIST GUM WORKER ROBERTO OCAMPO M.D. Normal [facility] Comment on above: Performed By: #### P TT, HEPATIC, BMP, PT #### [address] Automated basophil %Ordered By: Ria Talamantes on 05-24-2023 Basophils/100 WBC (Bld) 0.5 % Normal . [facility] Comment on above: Performed By: #### B MP, CBC #### [address] Automated basophil countOrde red By: Ria Talamantes on 05-24-2023 Basophils (Bld) [#/Vol] 0.1 10*3/uL Normal 0.0-0.2 [facility] Comment on above: Result Comment: PERF ORMED BY: [place] [address] PATHOLOGIST GUM WORKER ROBERTO OCAMPO M.D. Performed By: #### B MP, CBC #### [address] Automated blood monocyte cou ntOrdered By: Ria Talamantes on 05-24-2023 Monocytes (Bld) [#/Vol] 0.9 10*3/uL High 0.0-0.8 [facility] Comment on above: Performed By: #### B MP, CBC #### [address] Automated eosinophil %Ordere d By: Ria Talamantes on 05-24-2023 Eosinophils/100 WBC (Bld) 0.9 % Normal . [facility] Comment on above: Performed By: #### B MP, CBC #### [address] Automated eosinophil countOr dered By: Ria Talamantes on 05-24-2023 Eosinophils (Bld) [#/Vol] 0.1 10*3/uL Normal 0.0-0.45 [facility] Comment on above: Performed By: #### B MP, CBC #### [address] Automated erythrocytes count in urine sediment (number/area)Ordered By: Ria Talamantes on 05-24-2023 RBC Auto (Urine sed) [#/Area] None seen [HPF] 0-4 [facility] Automated leukocytes count i n urine sediment (number/area)Ordered By: Ria Talamantes on 05-24-2023 WBC Auto (Urine sed) [#/Area] None seen [HPF] 0-4 [facility] Automated monocyte %Ordered By: Ria Talamantes on 05-24-2023 Monocytes/100 WBC (Bld) 5.7 % Normal . [facility] Comment on above: Performed By: #### B MP, CBC #### [address] Automated neutrophil %Ordere d By: Ria Talamantes on 05-24-2023 Neutrophils/100 WBC (Bld) 86.6 % Normal . [facility] Comment on above: Performed By: #### B MP, CBC #### [address] Automated urine color determ inationOrdered By: Ria Talamantes on 05-24-2023 Color (U) Yellow Normal Yellow [facility] Comment on above: Order Comment: Name Collection Type:: Clean-Voided Midstream Performed By: #### P TT, HEPATIC, BMP, PT #### [facility] [address] [place] [address] BNP ser/plasOrdered By: Cuca Talamantes on 05-24-2023 Natriuretic peptide B (Bld) [Mass/Vol] 221.0 pg/mL High 5-100 [facility] Comment on above: Result Comment: PERF ORMED BY: [place] [address] PATHOLOGIST GUM WORKER ROBERTO OCAMPO M.D. Performed By: #### B MP, CBC #### [address] Basic Metabolic Panelon 05-06 Creatinine Clr Calc Pharmacy 79.52 Normal [facility] Comment on above: Result Comment: PERF ORMED BY: [place] [address] PATHOLOGIST GUM WORKER ROBERTO OCAMPO M.D. Performed By: #### B MP, CBC #### [address] GFR/1.73 sq M.predicted MDRD (S/P/Bld) [Vol rate/Area] 58.542 mL/min/{1.73_m2} Normal [facility] Comment on above: Performed By: #### B MP, CBC #### [address] Bilirubin Test strip Ql (U)O rdered By: Ria Talamantes on 05-24-2023 Bilirubin Ql (U) Negative Negative [facility] Blood Cultureon 05-24-2023 Bacteria identified Cx Nom (Bld) NO GROWTH 5 DAYS PERFORMED BY: [place] [address] PATHOLOGIST GUM WORKER ROBERTO OCAMPO M.D. Normal [facility] Comment on above: Performed By: #### P TT, HEPATIC, BMP, PT #### [address] Bacteria identified Cx Nom (Bld) Gram [...] culture Not detected Group A (Streptococcus pyogenes) [id number] Not detected Group B Strep (Streptococcus agalactiae) [...] at (more content not included)... Normal [facility] Comment on above: Performed By: #### P TT, HEPATIC, BMP, PT #### [facility] [address] COVID CepheidOrdered By: Greg Talamantes on 05-24-2023 SARS-CoV-2 (COVID-19) Ab IA Ql Negative Negative [facility] Comment on above: This is a duplicate Cepheid Xpert Xpress CoV-2/Flu/RSV Plus RNA by RT-PCR result to be used for statistical tracking purpose only. SARS-CoV-2 (COVID-19) RNA PRITESH+probe Ql (Unsp spec) [facility] COVID-19 / Flu A/B / RSV [...] or Cepheid Disclaimer revoked sooner. PERFORMED BY: [place] [id number] PATHOLOGIST GUM WORKER ROBERTO OCAMPO M.D. Normal [facility] Comment on above: Performed By: #### P TT, HEPATIC, BMP, PT #### [place] [id number] [facility] CT angio chest PE protocolon 05-24-2023 CT angio chest PE protocol [facility] [place] [address] [place] [address] CT Scan Report Signed Patient: Rob Ray MR#: [id number] 0 : 1965 Acct:[id number] Age/Sex: 58 / M ADM Date: 05/24/23 Loc: ER Room: Type: [facility] ER Attending Dr: Copies to: Ria [...] Kulwinder Miller M.D.05/24/2023 5:17 PM Dictation Location: [place] [address] Transcribed By: [facility] 05/24/231716 Dictated By: Kulwinder Miller DO 05/24/231711 Signed By: 05/24/231716 Normal [facility] Calcium [Mass/volume] in Ser um or PlasmaOrdered By: Ria Talamantes on 05-24-2023 Calcium [Mass/Vol] 9.2 mg/dL Normal 8.6-10.3 [facility] Comment on above: Performed By: #### B MP, CBC #### [address] Carbon dioxide, total [Moles /volume] in Serum or PlasmaOrdered By: Ria Talamantes on 05-24-2023 CO2 [Moles/Vol] 22.1 mmol/L Normal 21.0-31.0 [facility] Comment on above: Performed By: #### B MP, CBC #### [facility] [address] [place] [address] Cepheid COVID PCR Negativeon 05-24-2023 SARS-CoV-2 (COVID-19) RNA PRITESH+probe Ql (Unsp spec) Negative Normal Negative [facility] Comment on above: Result Comment: This is a duplicate Cepheid Xpert Xpress CoV-2/Flu/RSV Plus RNA by RT-PCR result to be used for statistical tracking purpose only. PERFORMED BY: [place] [address] PATHOLOGIST GUM WORKER ROBERTO OCAMPO M.D. Performed By: #### P TT, HEPATIC, BMP, PT #### [facility] [address] [place] [address] [place] Chloride [Moles/volume] in S rafy or PlasmaOrdered By: Ria Talamantes on 05-24-2023 Chloride [Moles/Vol] 105 mmol/L Normal 98-107 [facility] Comment on above: Performed By: #### B MP, CBC #### [facility] [address] [place] [address] Complete Blood Count Auto Di ffon 05-24-2023 Mean Corpuscular HGB Conc 33.8 g/dL Normal 32.5-35.6 [facility] Comment on above: Performed By: #### B MP, CBC #### [address] Monocytes/100 WBC (Bld) 20.36 % High 0.00-20.00 [facility] Comment on above: Result Comment: For adults in ED, MDW > 20.0 may be associated with a higher risk of sepsis during the first 12 hrs of hospital admission Performed By: #### B MP, CBC #### [address] NRBC% 0.0 /100{WBC} Normal 0-0.5 [facility] Comment on above: Performed By: #### B MP, CBC #### [address] Creatine Kinaseon 05-24-2023 CK [Catalytic activity/Vol] 251 U/L High 30-223 [facility] Comment on above: Performed By: #### P TT, HEPATIC, BMP, PT #### [address] Creatinine [Mass/volume] in Serum or PlasmaOrdered By: Ria Talamantes on 05-24-2023 Creatinine [Mass/Vol] 1.38 mg/dL High 0.70-1.30 [facility] Comment on above: Performed By: #### B MP, CBC #### [address] D-Dimer High Sensitivityon 0 05-24-2023 D-Dimer High Sensitivity 296 ng/mL High 0-243 [facility] Comment on above: Result [...] coagulation studies. Please contact the laboratory at [phone] for redraw instructions. PERFORMED BY: [place] [address] PATHOLOGIST GUM WORKER ROBERTO OCAMPO M.D. Performed By: #### P TT, HEPATIC, BMP, PT #### [address] Dipstick and Microscopicon 0 05-24-2023 Appearance (U) Clear Normal Clear [facility] Comment on above: Order Comment: Name Collection Type:: Clean-Voided Midstream Performed By: #### P TT, HEPATIC, BMP, PT #### [place] [address] [place] Bacteria,Urine None Seen Normal None Seen [facility] Comment on above: Order Comment: Name Collection Type:: Clean-Voided Midstream Performed By: #### P TT, HEPATIC, BMP, PT #### [address] Bilirubin,Urine Negative Normal Negative [facility] Comment on above: Order Comment: Name Collection Type:: Clean-Voided Midstream Performed By: #### P TT, HEPATIC, BMP, PT #### [address] Glucose Ql (U) Normal Normal Normal [facility] Comment on above: Order Comment: Name Collection Type:: Clean-Voided Midstream Performed By: #### P TT, HEPATIC, BMP, PT #### [place] [id number] [place] Hyaline Casts,Urine 0-8 Normal 0-8 [facility] Comment on above: Order Comment: Name Collection Type:: Clean-Voided Midstream Result Comment: PERF ORMED BY: [place] [address] PATHOLOGIST GUM WORKER ROBERTO OCAMPO M.D. Performed By: #### P TT, HEPATIC, BMP, PT #### [address] Ketones Ql (U) Negative Normal Negative [facility] Comment on above: Order Comment: Name Collection Type:: Clean-Voided Midstream Performed By: #### P TT, HEPATIC, BMP, PT #### [address] Leukocyte esterase Test strip Ql (U) Negative Normal Negative [facility] Comment on above: Order Comment: Name Collection Type:: Clean-Voided Midstream Performed By: #### P TT, HEPATIC, BMP, PT #### [address] Nitrite,Urine Negative Normal Negative [facility] Comment on above: Order Comment: Name Collection Type:: Clean-Voided Midstream Performed By: #### P TT, HEPATIC, BMP, PT #### [address] Occult Blood,Urine Negative Normal Negative [facility] Comment on above: Order Comment: Name Collection Type:: Clean-Voided Midstream Result Comment: PERF ORMED BY: [place] [address] PATHOLOGIST GUM WORKER ROBERTO OCAMPO M.D. Performed By: #### P TT, HEPATIC, BMP, PT #### [address] RBC,Urine None Seen Normal 0-4 [facility] Comment on above: Order Comment: Name Collection Type:: Clean-Voided Midstream Performed By: #### P TT, HEPATIC, BMP, PT #### [address] Specificy [place],Urine 1.021 Normal 1.001-1.03 0 [facility] Comment on above: Order Comment: Name Collection Type:: Clean-Voided Midstream Performed By: #### P TT, HEPATIC, BMP, PT #### [address] [address] [place] Squamous Epithelial Cell,Urine None Seen Normal 0-2 [facility] Comment on above: Order Comment: Name Collection Type:: Clean-Voided Midstream Performed By: #### P TT, HEPATIC, BMP, PT #### [facility] [address] Urobilinogen,Urine Normal Normal Normal [facility] Comment on above: Order Comment: Name Collection Type:: Clean-Voided Midstream Performed By: #### P TT, HEPATIC, BMP, PT #### [facility] [address] WBC,Urine None Seen Normal 0-4 [facility] Comment on above: Order Comment: Name Collection Type:: Clean-Voided Midstream Performed By: #### P TT, HEPATIC, BMP, PT #### [facility] [address] [place] [address] ECG 12 lead ECGon 05-24-2023 ECG 12 lead ECG [facility] [place] [address] [place] [address] Electrocardiograph Report Signed Patient: Rob Ray MR#: [id number] 0 : 1965 Acct:[id number] Age/Sex: 58 / M ADM Date: 05/24/23 Loc: Room: [address] [place] [address] Type: ADM IN Attending Dr: Arturo Dolan [...] Nino Garrido MD 05/24/23 193 Normal [facility] Erythrocyte distribution wid th [Ratio] by Automated countOrdered By: Ria Talamantes on 05-24-2023 Erythrocyte distribution width (RBC) [Ratio] 13.9 % Normal 12.0-14.8 [facility] Comment on above: Performed By: #### B MP, CBC #### [facility] [address] Erythrocytes [#/volume] in B lood by Automated countOrdered By: Ria Talamantes on 05-24-2023 RBC (Bld) [#/Vol] 4.47 10*6/uL Normal 3.90-5.60 [facility] Comment on above: Performed By: #### B MP, CBC #### [facility] [address] Fibrin D-dimer [Presence] in Platelet poor plasma by Latex agglutinationOrdered By: Ria Talamantes on 05-24-2023 Fibrin D-dimer LA Ql (PPP) 296 ng/mL 0-243 [facility] Comment on above: The reference range [...] coagulation studies. Please contact the laboratory at [phone] for redraw instructions. Free T4 (Free Thyroxine)on 0 05-24-2023 Free T4 [Mass/Vol] 0.88 ng/dL Normal 0.61-1.12 [facility] Comment on above: Performed By: #### P TT, HEPATIC, BMP, PT #### [address] Glucose [Mass/volume] in Ser um or PlasmaOrdered By: Ria Talamantes on 05-24-2023 Glucose [Mass/Vol] 110 mg/dL High 70-100 [facility] Comment on above: ADA recommended refe rence rangeRandom Glucose Reference Range is dependent on time and content of last meal. Glucose of more than 200 mg/dL in a nonstressed, ambulatory subject supports the diagnosis of Diabetes Mellitus. Result Comment: [place] om Glucose Reference Range is dependent on time and content of last meal. Glucose of more than 200 mg/dL in a nonstressed, ambulatory subject supports the diagnosis of Diabetes Mellitus. ADA recommended reference range Performed By: #### B MP, CBC #### [address] Gram Stainon 05-24-2023 Microscopic observation Gram stain Nom (Unsp spec) Gram Stain Result 1+ Gram Positive Cocci in Clusters 1+ Gram Negative Bacilli 1+ White Blood Cells 1+ Epithelial Cells * This is a corrected result. * A prior result that was reported as final has been changed. PERFORMED BY: [place] [address] PATHOLOGIST GUM WORKER ROBERTO OCAMPO M.D. Normal [facility] Comment on above: Performed By: #### P TT, HEPATIC, BMP, PT #### [address] Hematocrit [Volume Fraction] of Blood by Automated countOrdered By: Ria Talamantes on 05-24-2023 Hematocrit (Bld) [Volume fraction] 43.2 % Normal 38.8-50.0 [facility] Comment on above: Performed By: #### B MP, CBC #### [facility] [address] Hemoglobin [Mass/volume] in BloodOrdered By: Ria Talamantes on 05-24-2023 Hemoglobin (Bld) [Mass/Vol] 14.6 g/dL Normal 13.0-17.0 [facility] Comment on above: Performed By: #### B MP, CBC #### [facility] [address] INR in Platelet poor plasma by Coagulation assayOrdered By: Ria Talamantes on 05-24-2023 INR Coag (PPP) [Relative time] 1.1 {INR} Normal [facility] Comment on above: INR Therapeutic Rang [...] #### P TT, HEPATIC, BMP, PT #### [facility] [address] [place] [address] Ketones Auto test strip (U) [Mass/Vol]Ordered By: Ria Talamantes on 05-24-2023 Ketones (U) [Mass/Vol] Negative Negative [facility] Thyroxine (T4)on T4 [Mass/Vol] 6.9 ug/dL Normal 4.5-12.0 [facility] Comment on above: Result Comment: Perf ormed at: CB - [facility] [address] [id number] Merchandise Carrier: Edwin Nazario PhD, Phone: [phone] PERFORMED BY: [place] [address] PATHOLOGIST GUM WORKER ROBERTO OCAMPO M.D. Performed By: #### L C T4 #### [facility] , Laboratory - UrinalysisOrder ed By: Ria Talamantes on 05-24-2023 Hyaline casts LM Ql (Urine sed) 0-8 [LPF] 0-8 [facility] Lactate [Moles/volume] in Se rum or PlasmaOrdered By: Ria Talamantes on 05-24-2023 Lactate [Moles/Vol] 1.8 mmol/L Normal 0.5-2.2 [facility] Comment on above: Result Comment: PERF ORMED BY: [place] [address] PATHOLOGIST GUM WORKER ROBERTO OCAMPO M.D. Performed By: #### P TT, HEPATIC, BMP, PT #### [facility] [address] [place] [address] Leukocytes [#/volume] correc isaiah for nucleated erythrocytes in Blood by Automated counOrdered By: Ria Talamantes on 05-24-2023 WBC corrected for nucl RBC Auto (Bld) [#/Vol] 15.3 10*3/uL 4.1-10.5 [facility] Leukocytes [#/volume] in Blo od by Automated countOrdered By: Ria Talamantes on 05-24-2023 WBC (Bld) [#/Vol] 15.3 10*3/uL High 4.1-10.5 [facility] Comment on above: Performed By: #### B MP, CBC #### [facility] [address] [place] [address] [place] Lymphocytes [#/volume] in Bl ood by Automated countOrdered By: Ria Talamantes on 05-24-2023 Lymphocytes (Bld) [#/Vol] 1.0 10*3/uL Normal 1.00-4.8 [facility] Comment on above: Performed By: #### B MP, CBC #### [facility] [address] [place] [address] Lymphocytes/100 leukocytes i n Blood by Automated countOrdered By: Ria Talamantes on 05-24-2023 Lymphocytes/100 WBC (Bld) 6.3 % Normal . [facility] Comment on above: Performed By: #### B MP, CBC #### [address] MCH [Entitic mass] by Automa isaiah countOrdered By: Ria Talamantes on 05-24-2023 MCH (RBC) [Entitic mass] 32.7 pg Normal 27.5-35.2 [facility] Comment on above: Performed By: #### B MP, CBC #### [address] MCHC Auto (RBC) [Mass/Vol]Or dered By: Ria Talamantes on 05-24-2023 MCHC (RBC) [Mass/Vol] 33.8 g/dL 32.5-35.6 [facility] MCV [Entitic volume] by Auto mated countOrdered By: Ria Talamantes on 05-24-2023 MCV (RBC) [Entitic vol] 96.7 fL Normal 83.5-101 [facility] Comment on above: Performed By: #### B MP, CBC #### [address] Magnesium [Mass/volume] in S rafy or PlasmaOrdered By: Ria Talamantes on 05-24-2023 Magnesium [Mass/Vol] 1.9 mg/dL Normal 1.9-2.7 [facility] Comment on above: Result Comment: PERF ORMED BY: [address] [place] [address] PATHOLOGIST GUM WORKER ROBERTO OCAMPO M.D. Performed By: #### B MP, CBC #### [address] Monocyte distribution width [Entitic volume] in Blood by AutomatedOrdered By: Ria Talamantes on 05-24-2023 Monocyte distribution width Auto (Bld) [Entitic vol] 20.36 % 0.00-20.00 [facility] Comment on above: For adults in ED, MD W > 20.0 may be associated with a higher risk of sepsis during the first 12 hrs of hospital admission Neutrophils [#/volume] in Bl ood by Automated countOrdered By: Ria Talamantes on 05-24-2023 Neutrophils (Bld) [#/Vol] 13.3 10*3/uL High 1.8-7.7 [facility] Comment on above: Performed By: #### B MP, CBC #### [facility] [address] [place] [address] Nitrite Test strip Ql (U)Ord ered By: Ria Talamantes on 05-24-2023 Nitrite Ql (U) Negative Negative [facility] No Panel InformationOrdered By: Ria Talamantes on 05-24-2023 Estimated GFR (CKD-EPI) 58.542 mL/Min [facility] Creatinine Clearance (Chem 79.52 [facility] Nucleated erythrocytes [Pres ence] in Blood by Automated countOrdered By: Ria Talamantes on 05-24-2023 Nucleated RBC Auto Ql (Bld) 0.0 /100{WBC} 0-0.5 [facility] Partial Thromboplastin Timeo n 05-24-2023 aPTT Coag (Bld) [Time] 27.5 s Normal 25.1-36.5 [facility] Comment on above: Result Comment: A he matocrit value greater than 55% may lead to inaccurate results in coagulation testing. Patients having hematocrit values >55% require a special collection tube for coagulation studies. Please contact the laboratory at [phone] for redraw instructions. PERFORMED BY: [place] [address] PATHOLOGIST GUM WORKER ROBERTO OCAMPO M.D. Performed By: #### P TT, HEPATIC, BMP, PT #### [facility] [address] [place] [address] Platelet mean volume [Entiti c volume] in Blood by Automated countOrdered By: Ria Talamantes on 05-24-2023 Platelet mean volume (Bld) [Entitic vol] 9.6 fL Normal 6.6-10.1 [facility] Comment on above: Performed By: #### B MP, CBC #### [facility] [address] Platelets [#/volume] in Bloo d by Automated countOrdered By: Ria Talamantes on 05-24-2023 Platelets (Bld) [#/Vol] 246 10*3/uL Normal 150-450 [facility] Comment on above: Performed By: #### B MP, CBC #### [facility] [address] Potassium [Moles/volume] in Serum or PlasmaOrdered By: Ria Talamantes on 05-24-2023 Potassium [Moles/Vol] 4.1 mmol/L Normal 3.5-5.1 [facility] Comment on above: Performed By: #### B MP, CBC #### [facility] [address] Prothrombin time (PT)Ordered By: Ria Talamantes on 05-24-2023 PT Coag (PPP) [Time] 12.8 s Normal 9.0-12.9 [facility] Comment on above: A hematocrit value g reater than 55% may lead to inaccurate results in coagulation testing. Patients having hematocrit values >55% require a special collection tube for coagulation studies. Please contact the laboratory at [phone] for redraw instructions. Result Comment: A he matocrit value greater than 55% may lead to inaccurate results in coagulation testing. Patients having hematocrit values >55% require a special collection tube for coagulation studies. Please contact the laboratory at [phone] for redraw instructions. Performed By: #### P TT, HEPATIC, BMP, PT #### [address] Serum or plasma anion gap de terminationOrdered By: Ria Talamantes on 05-24-2023 Anion gap [Moles/Vol] 13.0 mmol/L Normal 6.0-15.0 [facility] Comment on above: Performed By: #### B MP, CBC #### [facility] [address] [place] [address] [place] Sodium [Moles/volume] in Ser um or PlasmaOrdered By: Ria Talamantes on 05-24-2023 Sodium [Moles/Vol] 136 mmol/L Normal 136-145 [facility] Comment on above: Performed By: #### B MP, CBC #### [facility] [address] [place] [address] [place] Specific gravity Auto test s trip (U) [Rel density]Ordered By: Ria Talamantes on 05-24-2023 Specific gravity (U) [Rel density] 1.021 1.001-1.03 0 [facility] Squamous epithelial cells de tection in urine sediment by light microscopyOrdered By: Ria Talamantes on 05-24-2023 Epithelial cells.squamous LM Ql (Urine sed) None seen [HPF] 0-2 [facility] Thyroid Stimulating Hormoneo n 05-24-2023 TSH Qn 1.10 m[IU]/L Normal 0.45-5.33 [facility] Comment on above: Result Comment: PERF ORMED BY: [place] [address] PATHOLOGIST GUM WORKER ROBERTO OCAMPO M.D. Performed By: #### P TT, HEPATIC, BMP, PT #### [facility] [address] [place] [address] [place] Troponin I High Sensitivityo n 05-24-2023 Troponin I High Sensitivity 11.5 pg/mL Normal 0.0-20.0 [facility] Comment on above: Result Comment: PERF ORMED BY: [place] [address] PATHOLOGIST GUM WORKER ROBERTO OCAMPO M.D. Performed By: #### P TT, HEPATIC, BMP, PT #### [facility] [address] Troponin I High Sensitivity 8.9 pg/mL Normal 0.0-20.0 [facility] Comment on above: Result Comment: PERF ORMED BY: [address] [place] [address] PATHOLOGIST GUM WORKER ROBERTO OCAMPO M.D. Performed By: #### B MP, CBC #### [address] Troponin I.cardiac [Mass/vol ume] in Serum or Plasma by Detection limit <= 0.01 ng/Ordered By: Ria Talamantes on 05-24-2023 Troponin I.cardiac DL <= 0.01 ng/mL [Mass/Vol] 8.9 pg/mL 0.0-20.0 [facility] Urea nitrogen [Mass/volume] in Serum or PlasmaOrdered By: Ria Talamantes on 05-24-2023 Urea nitrogen [Mass/Vol] 23 mg/dL Normal 7-25 [facility] Comment on above: Performed By: #### B MP, CBC #### [address] Urine bacteria detection by automated methodOrdered By: Ria Talamantes on 05-24-2023 Bacteria Auto Ql (U) None seen None Seen [facility] Urine clarity by refractomet ry automatedOrdered By: Ria Talamantes on 05-24-2023 Clarity Refractometry automated (U) Clear Clear [facility] Urine glucose measurement by automated test strip (mass/volume)Ordered By: Ria Talamantes on 05-24-2023 Glucose Auto test strip (U) [Mass/Vol] Normal mg/dL Normal [facility] Urine hemoglobin detection b y automated test stripOrdered By: Ria Talamantes on 05-24-2023 Hemoglobin Auto test strip Ql (U) Negative Negative [facility] Urine leukocyte esterase det ection by automated test stripOrdered By: Ria Talamantes on 05-24-2023 Leukocyte esterase Auto test strip Ql (U) Negative Negative [facility] Urine pH measurement by auto mated test stripOrdered By: Ria Talamantes on 05-24-2023 pH (U) 5.5 [pH] Normal 5.0-9.0 [facility] Comment on above: Order Comment: Name Collection Type:: Clean-Voided Midstream Performed By: #### P TT, HEPATIC, BMP, PT #### [facility] [address] Urine protein measurement by automated test strip (mass/volume)Ordered By: Ria Talamantes on 05-24-2023 Protein (U) [Mass/Vol] 30 mg/dL High Negative [facility] Comment on above: Order Comment: Name Collection Type:: Clean-Voided Midstream Performed By: #### P TT, HEPATIC, BMP, PT #### [facility] [address] Urobilinogen Auto test strip (U) [Mass/Vol]Ordered By: Ria Talamantes on 05-24-2023 Urobilinogen (U) [Mass/Vol] Normal mg/dL Normal [facility] CBC AUTO DIFFon 03-10-2021 BASO # 0.1 103/ul Normal 0.0-0.1 [facility] Comment on above: Performed By: #### C BC #### [facility] [address] [place] [address] Dr. Christina Heredia Basophils/100 WBC (Bld) 0.7 % Normal 0.2-2.0 [facility] Comment on above: Performed By: #### C BC #### [facility] [address] [place] [address] Dr. Christina Heredia EO # 0.2 103/ul Normal 0.0-0.7 [facility] Comment on above: Performed By: #### C BC #### [facility] [address] [place] [address] Dr. Christina Heredia Eosinophils/100 WBC (Bld) 1.7 % Normal 0.9-7.0 [facility] Comment on above: Performed By: #### C BC #### [facility] [address] [place] [address] Dr. Christina Heredia Erythrocyte distribution width (RBC) [Ratio] 12.6 % Normal 11.0-15.0 [facility] Comment on above: Performed By: #### C BC #### [facility] [address] [place] [address] Dr. Christina Heredia Hematocrit (Bld) [Volume fraction] 43.9 % Normal 42.0-54.0 [facility] Comment on above: Performed By: #### C BC #### [facility] [address] [place] [address] Dr. Christina Heredia Hemoglobin (Bld) [Mass/Vol] 14.1 g/dL Normal 14.0-18.0 [facility] Comment on above: Performed By: #### C BC #### [facility] [address] [place] [address] Dr. Christina Heredia IG # 0.13 10e3/ul Critically high 0.00-0.03 [facility] Comment on above: Performed By: #### C BC #### [facility] [address] [place] [address] Dr. Christina Heredia IG % 1.5 % Critically high 0.0-0.5 [facility] Comment on above: Performed By: #### C BC #### [facility] [address] [place] [address] Dr. Christina Heredia LYMPH # 2.4 103/ul Normal 1.2-3.8 [facility] Comment on above: Performed By: #### C BC #### [facility] [address] [place] [address] Dr. Christina Heredia Lymphocytes/100 WBC (Bld) 27.0 % Normal 20.5-60.0 [facility] Comment on above: Performed By: #### C BC #### [facility] [address] [place] [address] Dr. Christina Heredia MANUAL DIFF REQ NO Normal [facility] Comment on above: Performed By: #### C BC #### [facility] [address] [place] [address] Dr. Christina Heredia MCH (RBC) [Entitic mass] 30.9 pg Normal 25.9-34.0 [facility] Comment on above: Performed By: #### C BC #### [facility] [address] [place] [address] Dr. Christina Heredia MCHC (RBC) [Mass/Vol] 32.1 g/dL Normal 29.9-35.2 [facility] Comment on above: Performed By: #### C BC #### [facility] [address] [address] [address] Christina Heredia MCV (RBC) [Entitic vol] 96.3 fL Critically high 80.0-94.0 [facility] Comment on above: Performed By: #### C BC #### [facility] [address] [address] [address] Christina Heredia MONO # 0.6 103/ul Normal 0.3-0.8 [facility] Comment on above: Performed By: #### C BC #### [facility] [address] [place] [address] Dr. Christina Heredia Monocytes/100 WBC (Bld) 6.4 % Normal 1.7-12.0 [facility] Comment on above: Performed By: #### C BC #### [facility] [address] [place] [address] Dr. Christina Heredia NEUT # 5.5 103/ul Normal 1.4-6.5 [facility] Comment on above: Performed By: #### C BC #### [facility] [address] [place] [address] Dr. Christina Heredia Neutrophils/100 WBC (Bld) 62.7 % Normal 43.0-75.0 [facility] Comment on above: Performed By: #### C BC #### [facility] [address] [place] [address] Dr. Christina Heredia Platelet mean volume (Bld) [Entitic vol] 10.8 fL Normal 9.5-13.5 [facility] Comment on above: Performed By: #### C BC #### [facility] [address] [place] [address] Dr. Christina Heredia PLT 251 103/ul Normal 150-450 [facility] Comment on above: Performed By: #### C BC #### [facility] [address] [place] [address] Dr. Christina Heredia RBC 4.56 106/ul Critically low 4.70-6.10 [facility] Comment on above: Performed By: #### C BC #### [facility] [address] [place] [address] Dr. Christina Heredia WBC 8.7 103/ul Normal 4.0-11.0 [facility] Comment on above: Performed By: #### C BC #### [facility] [address] [place] [address] Dr. Christina Heredia CRPon 03-10-2021 CRP [Mass/Vol] mg/L Normal <=1.0 [facility] Comment on above: Performed By: #### C RP, CMP #### [facility] [address] [place] [address] Dr. Christina Heredia MONOon 03-10-2021 Monocytes (Bld) [#/Vol] Negative Normal NEGATIVE [facility] Comment on above: Performed By: #### M CHRISTIANO #### [facility] [address] [place] [address] Dr. Christina Heredia PROF 14(COMP METB)on 021 Albumin [Mass/Vol] 3.3 g/dL Critically low 3.5-5.0 [facility] Comment on above: Performed By: #### C RP, CMP #### [facility] [address] [place] [address] Dr. Christina Heredia Albumin/Globulin [Mass ratio] 0.8 {ratio} Normal [facility] Comment on above: Performed By: #### C RP, CMP #### [facility] [address] [place] [address] Dr. Christina Heredia ALP [Catalytic activity/Vol] 64 U/L Normal 38-126 [facility] Comment on above: Performed By: #### C RP, CMP #### [facility] [address] [place] [address] Dr. Christina Heredia ALT [Catalytic activity/Vol] 42 U/L Normal 21-72 [facility] Comment on above: Performed By: #### C RP, CMP #### [facility] [address] [place] [address] Dr. Christina Heredia Anion gap [Moles/Vol] 11.4 mmol/L Normal e [facility] Comment on above: Performed By: #### C RP, CMP #### [facility] [address] [place] [address] Dr. Christina Heredia AST [Catalytic activity/Vol] 18 U/L Normal 17-59 [facility] Comment on above: Performed By: #### C RP, CMP #### [facility] [address] [place] [address] Dr. Christina Heredia Bilirubin [Mass/Vol] 0.5 mg/dL Normal 0.2-1.3 [facility] Comment on above: Performed By: #### C RP, CMP #### [facility] [address] [place] [address] Dr. Christina Heredia Calcium [Mass/Vol] 8.8 mg/dL Normal 8.4-10.2 [facility] Comment on above: Performed By: #### C RP, CMP #### [facility] [address] [place] [address] Dr. Christina Heredia Chloride [Moles/Vol] 109 mmol/L Critically high 98-107 [facility] Comment on above: Performed By: #### C RP, CMP #### [facility] [address] [place] [address] Dr. Christina Heredia CO2 [Moles/Vol] 24.3 mmol/L Normal 22.0-30.0 [facility] Comment on above: Performed By: #### C RP, CMP #### [facility] [address] [place] [address] Dr. Christina Heredia Creatinine [Mass/Vol] 1.43 mg/dL Critically high 0.66-1.25 [facility] Comment on above: Performed By: #### C RP, CMP #### [facility] [address] [place] [address] Dr. Christina Heredia EGFR-AF ROMANIAN >60 Normal >=60 [facility] Comment on above: Performed By: #### C RP, CMP #### [facility] [address] [place] [address] Dr. Christina Heredia EGFR-NON AF ROMANIAN 51 mL/min/1.73m2 Critically low >=60 [facility] Comment on above: Performed By: #### C RP, CMP #### [facility] [address] [place] [address] Dr. Christina Heredia Globulin (S) [Mass/Vol] 4.1 g/dL Normal [facility] Comment on above: Performed By: #### C RP, CMP #### [facility] [address] [place] [address] Dr. Christina Heredia Glucose [Mass/Vol] 113 mg/dL Critically high 74-106 [facility] Comment on above: Performed By: #### C RP, CMP #### [facility] [address] [place] [address] Dr. Christina Heredia Potassium [Moles/Vol] 4.7 mmol/L Normal 3.4-5.0 [facility] Comment on above: Performed By: #### C RP, CMP #### [facility] [address] [place] [address] Dr. Christina Heredia Protein [Mass/Vol] 7.4 g/dL Normal 6.1-8.2 [facility] Comment on above: Performed By: #### C RP, CMP #### [facility] [address] [place] [address] Dr. Christina Heredia Sodium [Moles/Vol] 140 mmol/L Normal 137-145 [facility] Comment on above: Performed By: #### C RP, CMP #### [facility] [address] [place] [address] Dr. Christina Heredia Urea nitrogen [Mass/Vol] 18.0 mg/dL Normal 9.0-20.0 [facility] Comment on above: Performed By: #### C RP, CMP #### [facility] [address] [place] [address] Dr. Christina Heredia Urea nitrogen/Creatinine [Mass ratio] 12.6 mg/mg Normal [facility] Comment on above: Performed By: #### C RP, CMP #### [facility] [address] [place] [address] Dr. Christina Heredia Vital Signs Date Time Vital Sign Value Performing Clinician Faci lity 12-02-2023 12:30-0400 Diastolic blood pressure 93 mm[Hg] MD Costa Guevara Work Phone: [facility] 12-02-2023 12:30-0400 Heart rate 88 /min MD Costa Guevara Work Phone: [facility] 12-02-2023 12:30-0400 Respiratory rate 18 /min MD Costa Guevara Work Phone: [facility] 12-02-2023 12:30-0400 SaO2% (BldA) [Mass fraction] 98 % MD Costa Guevara Work Phone: [facility] 12-02-2023 12:30-0400 Systolic blood pressure 128 mm[Hg] MD Costa Guevara Work Phone: [facility] 12-02-2023 09:31-0400 Body height 167.64 cm MD Costa Guevara Work Phone: [facility] 12-02-2023 09:31-0400 Body temperature 98.2 [degF] MD Costa Guevara Work Phone: [facility] 12-02-2023 09:31-0400 Body weight 142.88 kg MD Costa Geuvara Work Phone: [facility] 05-28-2023 18:00-0500 Diastolic blood pressure 82 mm[Hg] MD Costa Guevara Work Phone: [facility] 05-28-2023 18:00-0500 Heart rate 128 /min MD Costa Guevara Work Phone: [facility] 05-28-2023 18:00-0500 Respiratory rate 20 /min MD Costa Guevara Work Phone: [facility] 05-28-2023 18:00-0500 SaO2% (BldA) [Mass fraction] 94 % MD Costa Guevara Work Phone: [facility] 05-28-2023 18:00-0500 Systolic blood pressure 131 mm[Hg] MD Costa Guevara Work Phone: [facility] 05-28-2023 12:38-0500 Body height 167.64 cm MD Costa Guevara Work Phone: [facility] 05-28-2023 12:38-0500 Body temperature 98.2 [degF] MD Costa Guevara Work Phone: [facility] 05-28-2023 12:38-0500 Body weight 136.07 kg MD Costa Guevara Work Phone: [facility] 05-27-2023 12:10-0500 Heart rate 92 /min [facility] 05-27-2023 12:10-0500 Respiratory rate 20 /min [facility] 05-27-2023 09:00-0500 Body temperature 97.7 [degF] [facility] 05-27-2023 09:00-0500 Diastolic blood pressure 69 mm[Hg] [facility] 05-27-2023 09:00-0500 SaO2% (BldA) [Mass fraction] 94 % [facility] 05-27-2023 09:00-0500 Systolic blood pressure 114 mm[Hg] [facility] 05-27-2023 08:13-0500 Inhaled oxygen flow rate 1 L/min [facility] 05-27-2023 04:56-0500 Body weight 144.3 kg [facility] 05-24-2023 18:51-0500 Body height 167.64 cm [facility] 05-24-2023 18:31-0500 Diastolic blood pressure 74 mm[Hg] MD Costa Guevara Work Phone: [facility] 05-24-2023 18:31-0500 Heart rate 109 /min MD Costa Guevara Work Phone: [facility] 05-24-2023 18:31-0500 Inhaled oxygen flow rate 2 L/min MD Costa Guevara Work Phone: [facility] 05-24-2023 18:31-0500 Respiratory rate 24 /min MD Costa Guevara Work Phone: [facility] 05-24-2023 18:31-0500 SaO2% (BldA) [Mass fraction] 95 % MD Costa Guevara Work Phone: [facility] 05-24-2023 18:31-0500 Systolic blood pressure 111 mm[Hg] MD Costa Guevara Work Phone: [facility] 05-24-2023 17:09-0500 Body temperature 99.6 [degF] MD Costa Guevara Work Phone: [facility] 05-24-2023 14:35-0500 Body height 167.64 cm MD Costa Guevara Work Phone: [facility] 05-24-2023 14:35-0500 Body weight 151.2 kg MD Costa Guevara Work Phone: [facility] Encounters Encounter Date Encounter Type Care Provider Facility Start: 12-03-2023 End: 12-03-2023 ambulatory [facility] Start: 12-02-2023 End: 12-02-2023 Emergency department patient visit MD Costa Guevara Work Phone: [facility] Work Phone: Start: 09-25-2023 ambulatory [facility] Start: 09-25-2023 End: 09-25-2023 ambulatory [facility] Start: 08-28-2023 End: 08-28-2023 ambulatory MD Costa Guevara Work Phone: [facility] Work Phone: Start: 08-28-2023 End: 08-28-2023 Discharged Recurring MD Costa Guevara Work Phone: [facility]-Infusion Therapy - O/P Work Phone: Start: 08-20-2023 End: 08-20-2023 ambulatory [facility] Start: 08-01-2023 Orders Only Not In System Ref Prov [facility] Start: 07-01-2023 End: 07-01-2023 ambulatory [facility] Start: 05-28-2023 End: 05-28-2023 Emergency department patient visit MD Costa Guevara Work Phone: [facility]-Emergency Room Work Phone: Start: 05-24-2023 End: 05-27-2023 Evaluation and management of inpatient MD Costa Guevara Work Phone: [facility] [place] [facility] Work Phone: Start: 05-24-2023 Non-patient / Non-visit [facility] Work Phone: Start: 03-10-2021 End: 03-11-2021 [...] lower limb veins US venous duplex LE [facility] Start: 12-02-2023 US Lower extremity v ein - right [facility] Start: 05-28-2023 Duplex scan of lower limb veins US venous duplex LE [facility] Start: 05-28-2023 US Lower extremity v ein - right [facility] Start: 05-27-2023 [facility] Start: 05-24-2023 Hospital admission [facility] Start: 05-24-2023 [facility] Start: 05-24-2023 Bacteria identified in Blood by Culture [facility] Patient Education [facility] Work Phone: Patient referral [facility] Work Phone: Immunizations Immunization Date Immunization Notes Care Provider Ambika redd 05-27-2023 influenza, injectabl e, quadrivalent,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
--- NOTE | 2024-01-14 10:00 | CA_ITS ---
Patient Name: ROB FRANK MR#: [id number] : 1965 Exam Date: 01/14/2024 Ordering Doctor: BLANCA TEJEDA ECHOCARDIOGRAM REPORT PROCEDURE: CA ECHO DOPPLER COMPLETE INDICATIONS: Persistent atrial fibrillation COMPARISON: None. DESCRIPTION: COMPLETE ECHOCARDIOGRAM Real-time transthoracic echocardiography with 2D, M-mode, spectral and color flow Doppler performed. QUALITY: Technical quality was good. LEFT VENTRICLE: Normal chamber size. Moderate left ventricular hypertrophy. LV EF: Global left ventricular systolic function is normal. Calculated left ventricular ejection fraction is 55%. No obvious wall motion abnormalities. DIASTOLIC: Not adequately assessed due to heart rhythm. ATRIAL SEPTUM: Inadequately seen LEFT ATRIUM: Moderate dilatation. RIGHT ATRIUM: Moderate dilatation. RIGHT VENTRICLE: Normal chamber size. Normal right ventricular systolic function. TRICUSPID VALVE: Normal mobility and thickness. No stenosis with trivial regurgitation. No evidence of pulmonary hypertension. RVSP 23mmHg MITRAL VALVE: Normal mobility and thickness. No evidence of mitral valve stenosis. There is no mitral annular calcification. Mild to moderate mitral regurgitation. AORTIC VALVE: Normal trileaflet appearance. No visible sclerosis. Normal leaflet mobility. No evidence of aortic valve stenosis. Trivial aortic regurgitation. AORTIC ROOT: Normal diameter and appearance. Mild dilatation of the ascending aorta measuring 3.9cm. PULMONIC VALVE: Normal thickness and mobility. No stenosis. No regurgitation. PERICARDIUM: Anterior free space; trivial effusion versus fat pad. IVC: Collapses with inspirations. Normal size. CONCLUSION: 1. Global left ventricular systolic function is normal; visually estimated ejection fraction is 55 to 60% 2. Normal right ventricular size and systolic function 3. Moderate left ventricular hypertrophy 4. Biatrial enlargement 5. Mild to moderate mitral regurgitation 6. The ascending aorta is mildly dilated measuring 3.9 cm 7. Anterior free space; trivial effusion versus fat pad Adult Echocardiography Procedure Report Left Ventricle LVEDD (3.7 - 5.6 cm): 5.14 cm LVESD (2.2 - 4.0 cm): 3.31 cm LVIVS thickness (0.6 - 1.2 cm): 1.45 cm LVPW thickness (0.5 - 1.0 cm): 1.39 cm e': 0.08 m/s E - e': 10.66 LVOT Max Gradient: 2.16 mm[Hg] LVOT Area (cm2): 0.74 m/s Peak Velocity (LVOT): 0.74 m/s Mean Velocity (LVOT): 0.52 m/s LVOT Diameter 2.34 cm Left Ventricular Ejection Fraction: 55.44 % Left Atrium LA Volume Index (2D A2C): 47.68 ml/m2 Left Atrium Systolic Dimension: 4.48 cm Mitral Valve Mitral Valve E-Wave Peak Velocity: 0.91 m/s Right Ventricle RV Internal Diastolic Dimension: 3.59 cm Aorta AO Root Diam: 3.68 cm Ascending Ao Diam: 3.86 cm Aortic Valve AoV Area (Peak Hesham): 2.80 cm2, 2.80 cm2 AoV Area (VTI): 3.24 cm2, 3.24 cm2 Peak Velocity(Antegrade Flow): 1.13 m/s Peak Gradient(Antegrade Flow): 5.12 mm[Hg] Mean Velocity(Antegrade Flow): 0.80 m/s Mean Gradient(Antegrade Flow): 2.80 mm[Hg] Velocity Time Integral: 19.50 cm Tricuspid Valve Peak Velocity (Regurgitant Flow): 1.51 m/s, 2.23 m/s Pulmonic Valve Peak Velocity: 0.77 m/s Peak Gradient: 2.66 mm[Hg], 2.05 mm[Hg] Right Atrium Right Atrium Systolic Pressure: 64.81 ml, 64.81 ml Dictated by: Joés Sorto M.D. on 01/14/2024 at 13:34 Approved by: José Sorto M.D. on 01/14/2024 at 13:38
== END 2024-01-14 09:35 | disposition home or self-care (01) ==
LOC: CARD 09:34
PROVIDERS: PCP Family Medicine; Visit Provider Internal Medicine Cardiovascular Disease
DX: I48.19 Other persistent atrial fibrillation (principal)
CPT/HCPCS: 93306

== ENCOUNTER 2024-03-25 09:05 | Outpatient (OUT) | payer OTHER, SELFPAY ==
--- NOTE | 2024-03-25 09:16 | XR_ITS ---
The [address] [address] Patient Name: ROB FRANK MRN: [id number] date: 1965 Sex: M Assigned Patient Location: [facility] Current Patient Location: Accession/Order Number: [id number] Exam Date: 03/25/2024 09:20 Report Date: 03/26/2024 06:54 At the request of: COSTA ACKERMAN Procedure: XR knee RT 3V PROCEDURE: XR knee RT 3V HISTORY: Right Knee Pain M25.561 COMPARISON: None. FINDINGS: BONES:Marked narrowing of the medial joint space with near [id number] articulation. Small degenerative osteophytes along the articular margins of all 3 compartments. Suspect mild-moderate narrowing of anterior compartment. SOFT TISSUES:No visible soft tissue swelling. EFFUSION:None visible. OTHER: Negative. XR/XR knee RT 3V IMPRESSION: 1. Marked degenerative joint disease. 2. No acute bone abnormality. Electronically authenticated by: OMID SHEFFIELD Date: 03/26/2024 06:54
--- OUTSIDE RECORDS SUMMARY | 2024-03-25 09:30 | XMS_ITS | CCD ---
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 By: #### C BC #### [facility] [address] [place] [address] No Panel InformationOrdered By: Edwin Mckinney on 05-28-2023 Estimated GFR (CKD-EPI) 57.540 mL/Min [facility] Creatinine Clearance (Chem 73.58 [facility] Nucleated erythrocytes [Pres ence] in Blood by Automated countOrdered By: Edwin Mckinney on 05-28-2023 Nucleated RBC Auto Ql (Bld) 0.1 /100{WBC} 0-0.5 [facility] Partial Thromboplastin Timeo n 05-28-2023 aPTT Coag (Bld) [Time] 35.7 s Normal 25.1-36.5 [facility] Comment on above: Result Comment: A he matocrit value greater than 55% may lead to inaccurate results in coagulation testing. Patients having hematocrit values >55% require a special collection tube for coagulation studies. Please contact the laboratory at [phone] for redraw instructions. PERFORMED BY: [place] [address] PATHOLOGIST JOUR[employer] ROBERTO OCAMPO M.D. Performed By: #### P TT, HEPATIC, BMP, PT #### [place] [address] [place] Platelet mean volume [Entiti c volume] in Blood by Automated countOrdered By: Edwin Mckinney on 05-28-2023 Platelet mean volume (Bld) [Entitic vol] 9.3 fL Normal 6.6-10.1 [facility] Comment on above: Performed By: #### C BC #### [place] [address] [place] Platelets [#/volume] in Bloo d by Automated countOrdered By: Edwin Mckinney on 05-28-2023 Platelets (Bld) [#/Vol] 296 10*3/uL Normal 150-450 [facility] Comment on above: Performed By: #### C BC #### [place] [address] [place] Potassium [Moles/volume] in Serum or PlasmaOrdered By: Edwin Mckinney on 05-28-2023 Potassium [Moles/Vol] 4.1 mmol/L Normal 3.5-5.[address] [facility] Comment on above: Performed By: #### P TT, HEPATIC, BMP, PT #### [place] [address] [place] Protein [Mass/volume] in Ser um or PlasmaOrdered By: Edwin Mckinney on 05-28-2023 Protein [Mass/Vol] 8.5 g/dL Normal 6.4-8.9 [facility] Comment on above: Performed By: #### P TT, HEPATIC, BMP, PT #### [address] [place] [address] [place] Prothrombin time (PT)Ordered By: Edwin Mckinney on 05-28-2023 PT Coag (PPP) [Time] 16.2 s High 9.0-12.9 [facility] Comment on above: A hematocrit value g reater than 55% may lead to inaccurate results in coagulation testing. Patients having hematocrit values >55% require a special collection tube for coagulation studies. Please contact the laboratory at [phone] for redraw instructions. Result Comment: A he matocrit value greater than 55% may lead to inaccurate results in coagulation testing. Patients having hematocrit values >55% require a special collection tube for coagulation studies. Please contact the laboratory at [phone] for redraw instructions. Performed By: #### P TT, HEPATIC, BMP, PT #### [address] Serum globulin measurement b y calculation (mass/volume)Ordered By: Edwin Mckinney on 05-28-2023 Globulin (S) [Mass/Vol] 4.2 g/dL [facility] Comment on above: Performed By: #### P TT, HEPATIC, BMP, PT #### [address] Serum or plasma albumin/glob ulin mass ratioOrdered By: Edwin Mckinney on 05-28-2023 Albumin/Globulin [Mass ratio] 1.0 {ratio} [facility] Comment on above: Performed By: #### P TT, HEPATIC, BMP, PT #### [facility] [address] [place] [address] Serum or plasma anion gap de terminationOrdered By: Edwin Mckinney on 05-28-2023 Anion gap [Moles/Vol] 10.2 mmol/L Normal 6.0-15.0 [facility] Comment on above: Performed By: #### P TT, HEPATIC, BMP, PT #### [address] Serum or plasma non-glucuron idated bilirubin measurement (mass/volume)Ordered By: Edwin Mckinney on 05-28-2023 Bilirubin.indirect [Mass/Vol] 0.8 mg/dL [facility] Sodium [Moles/volume] in Ser um or PlasmaOrdered By: Edwin Mckinney on 05-28-2023 Sodium [Moles/Vol] 139 mmol/L Normal 136-145 [facility] Comment on above: Performed By: #### P TT, HEPATIC, BMP, PT #### [facility] [address] Urea nitrogen [Mass/volume] in Serum or PlasmaOrdered By: Edwin Mckinney on 05-28-2023 Urea nitrogen [Mass/Vol] 24 mg/dL Normal 7-25 [facility] Comment on above: Performed By: #### P TT, HEPATIC, BMP, PT #### [facility] [address] [place] [id number] [facility] XR chest 1V portableon 05-28 XR chest 1V portable [facility] [place] [address] [place] [address] XRay Report Signed Patient: Tejas Ray MR#: [id number] 0 : 1965 Acct:[id number] Age/Sex: 58 / M ADM Date: 05/28/23 Loc: ER Room: Type: [facility] ER Attending Dr: Copies to: [...] Kulwinder Miller M.D.05/28/2023 2:32 PM Dictation Location: [place] [address] Transcribed By: [facility] 05/28/23 1432 Dictated By: Kulwinder Miller DO 05/28/23 1432 Signed By: 05/28/23 143 Normal [facility] XR foot RT min 3V*on 024 XR foot RT min 3V* [facility] Main [place] [address] [place], [place] [id number] XRay Report Signed Patient: Tejas Ray MR#: [id number] 0 : 1965 Acct:[id number] Age/Sex: 58 / M ADM Date: 05/28/23 Loc: ER Room: Type: [facility] ER Attending Dr: Copies to: [...] Kulwinder Miller M.D.05/28/2023 2:56 PM Dictation Location: [place] [address] Transcribed By: [facility] 05/28/23 1456 Dictated By: Kulwinder Miller DO 05/28/23 145 Signed By: 05/28/23 1456 Normal [facility] Basic Metabolic Panelon 05-07 Anion gap [Moles/Vol] 10.9 mmol/L Normal 6.0-15.0 [facility] Comment on above: Performed By: #### B MP, CBC #### [address] Calcium [Mass/Vol] 8.7 mg/dL Normal 8.6-10.3 [facility] Comment on above: Performed By: #### B MP, CBC #### [address] Chloride [Moles/Vol] 106 mmol/L Normal 98-107 [facility] Comment on above: Performed By: #### B MP, CBC #### [address] CO2 [Moles/Vol] 25.9 mmol/L Normal 21.0-31.0 [facility] Comment on above: Performed By: #### B MP, CBC #### [address] Creatinine [Mass/Vol] 1.40 mg/dL High 0.70-1.30 [facility] Comment on above: Performed By: #### B MP, CBC #### [place] [address] [place] Creatinine Clr Calc Pharmacy 76.19 Normal [facility] Comment on above: Result Comment: PERF ORMED BY: [place] [address] PATHOLOGIST JOUR[employer] ROBERTO OCAMPO M.D. Performed By: #### B MP, CBC #### [place] [address] [place] GFR/1.73 sq M.predicted MDRD (S/P/Bld) [Vol rate/Area] 57.540 mL/min/{1.73_m2} Normal [facility] Comment on above: Performed By: #### B MP, CBC #### [address] Glucose [Mass/Vol] 95 mg/dL Normal 70-100 [facility] Comment on above: Result Comment: [place] Glucose Reference Range is dependent on time and content of last meal. Glucose of more than 200 mg/dL in a nonstressed, ambulatory subject supports the diagnosis of Diabetes Mellitus. ADA recommended reference range Performed By: #### B MP, CBC #### [address] Potassium [Moles/Vol] 3.8 mmol/L Normal 3.5-5.1 [facility] Comment on above: Performed By: #### B MP, CBC #### [address] Sodium [Moles/Vol] 139 mmol/L Normal 136-145 [facility] Comment on above: Performed By: #### B MP, CBC #### [address] Urea nitrogen [Mass/Vol] 32 mg/dL High 7-25 [facility] Comment on above: Performed By: #### B MP, CBC #### [address] Complete Blood Count Auto Di ffon 05-27-2023 Basophils (Bld) [#/Vol] 0.1 10*3/uL Normal 0.0-0.2 [facility] Comment on above: Result Comment: PERF ORMED BY: [place] [address] PATHOLOGIST J[employer] ROBERTO OCAMPO M.D. Performed By: #### B MP, CBC #### [address] Basophils/100 WBC (Bld) 0.8 % Normal . [facility] Comment on above: Performed By: #### B MP, CBC #### [address] Eosinophils (Bld) [#/Vol] 0.1 10*3/uL Normal 0.0-0.45 [facility] Comment on above: Performed By: #### B MP, CBC #### [address] Eosinophils/100 WBC (Bld) 0.8 % Normal . [facility] Comment on above: Performed By: #### B MP, CBC #### [address] Erythrocyte distribution width (RBC) [Ratio] 14.3 % Normal 12.0-14.8 [facility] Comment on above: Performed By: #### B MP, CBC #### [address] Hematocrit (Bld) [Volume fraction] 39.1 % Normal 38.8-50.0 [facility] Comment on above: Performed By: #### B MP, CBC #### [address] Hemoglobin (Bld) [Mass/Vol] 13.1 g/dL Normal 13.0-17.0 [facility] Comment on above: Performed By: #### B MP, CBC #### [address] Lymphocytes (Bld) [#/Vol] 3.2 10*3/uL Normal 1.00-4.8 [facility] Comment on above: Performed By: #### B MP, CBC #### [address] Lymphocytes/100 WBC (Bld) 27.1 % Normal . [facility] Comment on above: Performed By: #### B MP, CBC #### [address] MCH (RBC) [Entitic mass] 32.8 pg Normal 27.5-35.2 [facility] Comment on above: Performed By: #### B MP, CBC #### [address] MCV (RBC) [Entitic vol] 97.9 fL Normal 83.5-101 [facility] Comment on above: Performed By: #### B MP, CBC #### [address] Mean Corpuscular HGB Conc 33.5 g/dL Normal 32.5-35.6 [facility] Comment on above: Performed By: #### B MP, CBC #### [address] Monocytes (Bld) [#/Vol] 1.0 10*3/uL High 0.0-0.8 [facility] Comment on above: Performed By: #### B MP, CBC #### [address] Monocytes/100 WBC (Bld) 8.8 % Normal . [facility] Comment on above: Performed By: #### B MP, CBC #### [facility] [address] [place] [address] [place] Neutrophils (Bld) [#/Vol] 7.3 10*3/uL Normal 1.8-7.7 [facility] Comment on above: Performed By: #### B MP, CBC #### [facility] [address] [place] [address] [place] Neutrophils/100 WBC (Bld) 62.5 % Normal . [facility] Comment on above: Performed By: #### B MP, CBC #### [facility] [address] NRBC% 0.1 /100{WBC} Normal 0-0.5 [facility] Comment on above: Performed By: #### B MP, CBC #### [facility] [address] [place] [address] [place] Platelet mean volume (Bld) [Entitic vol] 9.2 fL Normal 6.6-10.1 [facility] Comment on above: Performed By: #### B MP, CBC #### [facility] [address] [place] [address] [place] Platelets (Bld) [#/Vol] 235 10*3/uL Normal 150-450 [facility] Comment on above: Performed By: #### B MP, CBC #### [facility] [address] [place] [address] [place] RBC (Bld) [#/Vol] 4.00 10*6/uL Normal 3.90-5.60 [facility] Comment on above: Performed By: #### B MP, CBC #### [facility] [address] [place] [address] [place] WBC (Bld) [#/Vol] 11.7 10*3/uL High 4.1-10.5 [facility] Comment on above: Performed By: #### B MP, CBC #### [facility] [address] Basic Metabolic Panelon 01-2 Anion gap [Moles/Vol] 11.7 mmol/L Normal 6.0-15.0 [facility] Comment on above: Performed By: #### P TT, HEPATIC, BMP, PT #### [address] Calcium [Mass/Vol] 8.8 mg/dL Normal 8.6-10.3 [facility] Comment on above: Performed By: #### P TT, HEPATIC, BMP, PT #### [address] Chloride [Moles/Vol] 108 mmol/L High 98-107 [facility] Comment on above: Performed By: #### P TT, HEPATIC, BMP, PT #### [address] CO2 [Moles/Vol] 24.4 mmol/L Normal 21.0-31.0 [facility] Comment on above: Performed By: #### P TT, HEPATIC, BMP, PT #### [address] Creatinine [Mass/Vol] 1.34 mg/dL High 0.70-1.30 [facility] Comment on above: Performed By: #### P TT, HEPATIC, BMP, PT #### [place] [address] [place] Creatinine Clr Calc Pharmacy 81.59 Normal [facility] Comment on above: Result Comment: PERF ORMED BY: [place] [address] PATHOLOGIST JOUR[employer] ROBERTO OCAMPO M.D. Performed By: #### P TT, HEPATIC, BMP, PT #### [place] [address] [place] GFR/1.73 sq M.predicted MDRD (S/P/Bld) [Vol rate/Area] mL/min/{1.73_m2} Normal [facility] Comment on above: Performed By: #### P TT, HEPATIC, BMP, PT #### [place] [address] [place] Glucose [Mass/Vol] 115 mg/dL High 70-100 [facility] Comment on above: Result Comment: [place] Glucose Reference Range is dependent on time and content of last meal. Glucose of more than 200 mg/dL in a nonstressed, ambulatory subject supports the diagnosis of Diabetes Mellitus. ADA recommended reference range Performed By: #### P TT, HEPATIC, BMP, PT #### [address] Potassium [Moles/Vol] 4.1 mmol/L Normal 3.5-5.1 [facility] Comment on above: Performed By: #### P TT, HEPATIC, BMP, PT #### [address] Sodium [Moles/Vol] 140 mmol/L Normal 136-145 [facility] Comment on above: Performed By: #### P TT, HEPATIC, BMP, PT #### [address] Urea nitrogen [Mass/Vol] 33 mg/dL High 7-25 [facility] Comment on above: Performed By: #### P TT, HEPATIC, BMP, PT #### [address] Blood Cultureon 05-26-2023 Bacteria identified Cx Nom (Bld) NO GROWTH 5 DAYS PERFORMED BY: [place] [address] PATHOLOGIST JOUR[employer]MAN [employer] W[employer]DER ROBERTO OCAMPO M.D. Normal [facility] Comment on above: Performed By: #### C UBLD #### [address] Complete Blood Count Auto Di ffon 05-26-2023 Basophils (Bld) [#/Vol] 0.0 10*3/uL Normal 0.0-0.2 [facility] Comment on above: Result Comment: PERF ORMED BY: [place] [address] PATHOLOGIST JOURNEYMAN [employer] WEL[employer] ROBERTO OCAMPO M.D. Performed By: #### P TT, HEPATIC, BMP, PT #### [place] [address] [place] Basophils/100 WBC (Bld) 0.1 % Normal . [facility] Comment on above: Performed By: #### P TT, HEPATIC, BMP, PT #### [address] Eosinophils (Bld) [#/Vol] 0.0 10*3/uL Normal 0.0-0.45 [facility] Comment on above: Performed By: #### P TT, HEPATIC, BMP, PT #### [place] [address] [place] Eosinophils/100 WBC (Bld) 0.0 % Normal . [facility] Comment on above: Performed By: #### P TT, HEPATIC, BMP, PT #### [address] Erythrocyte distribution width (RBC) [Ratio] 14.3 % Normal 12.0-14.8 [facility] Comment on above: Performed By: #### P TT, HEPATIC, BMP, PT #### [address] Hematocrit (Bld) [Volume fraction] 36.9 % Low 38.8-50.0 [facility] Comment on above: Performed By: #### P TT, HEPATIC, BMP, PT #### [place] [address] [place] Hemoglobin (Bld) [Mass/Vol] 12.1 g/dL Low 13.0-17.0 [facility] Comment on above: Performed By: #### P TT, HEPATIC, BMP, PT #### [place] [address] [place] Lymphocytes (Bld) [#/Vol] 2.0 10*3/uL Normal 1.00-4.8 [facility] Comment on above: Performed By: #### P TT, HEPATIC, BMP, PT #### [place] [address] [place] Lymphocytes/100 WBC (Bld) 11.4 % Normal . [facility] Comment on above: Performed By: #### P TT, HEPATIC, BMP, PT #### [address] MCH (RBC) [Entitic mass] 32.2 pg Normal 27.5-35.2 [facility] Comment on above: Performed By: #### P TT, HEPATIC, BMP, PT #### [address] MCV (RBC) [Entitic vol] 98.1 fL Normal 83.5-101 [facility] Comment on above: Performed By: #### P TT, HEPATIC, BMP, PT #### [address] Mean Corpuscular HGB Conc 32.9 g/dL Normal 32.5-35.6 [facility] Comment on above: Performed By: #### P TT, HEPATIC, BMP, PT #### [address] Monocytes (Bld) [#/Vol] 1.4 10*3/uL High 0.0-0.8 [facility] Comment on above: Performed By: #### P TT, HEPATIC, BMP, PT #### [address] Monocytes/100 WBC (Bld) 7.9 % Normal . [facility] Comment on above: Performed By: #### P TT, HEPATIC, BMP, PT #### [address] Neutrophils (Bld) [#/Vol] 14.0 10*3/uL High 1.8-7.7 [facility] Comment on above: Performed By: #### P TT, HEPATIC, BMP, PT #### [address] Neutrophils/100 WBC (Bld) 80.6 % Normal . [facility] Comment on above: Performed By: #### P TT, HEPATIC, BMP, PT #### [address] NRBC% 0.1 /100{WBC} Normal 0-0.5 [facility] Comment on above: Performed By: #### P TT, HEPATIC, BMP, PT #### [address] Platelet mean volume (Bld) [Entitic vol] 9.4 fL Normal 6.6-10.1 [facility] Comment on above: Performed By: #### P TT, HEPATIC, BMP, PT #### [address] Platelets (Bld) [#/Vol] 233 10*3/uL Normal 150-450 [facility] Comment on above: Performed By: #### P TT, HEPATIC, BMP, PT #### [address] RBC (Bld) [#/Vol] 3.77 10*6/uL Low 3.90-5.60 [facility] Comment on above: Performed By: #### P TT, HEPATIC, BMP, PT #### [address] WBC (Bld) [#/Vol] 17.3 10*3/uL High 4.1-10.5 [facility] Comment on above: Performed By: #### P TT, HEPATIC, BMP, PT #### [address] Basic Metabolic Panelon 01-2 0-2023 Anion gap [Moles/Vol] 12.1 mmol/L Normal 6.0-15.0 Th e [facility] Comment on above: Performed By: #### B MP, CBC #### [address] Calcium [Mass/Vol] 8.6 mg/dL Normal 8.6-10.3 [facility] Comment on above: Performed By: #### B MP, CBC #### [address] Chloride [Moles/Vol] 107 mmol/L Normal 98-107 [facility] Comment on above: Performed By: #### B MP, CBC #### [facility] [address] [place] [address] [place] CO2 [Moles/Vol] 21.6 mmol/L Normal 21.0-31.0 [facility] Comment on above: Performed By: #### B MP, CBC #### [place] [address] [place] Creatinine [Mass/Vol] 1.29 mg/dL Normal 0.70-1.30 [facility] Comment on above: Performed By: #### B MP, CBC #### [place] [address] [place] Creatinine Clr Calc Pharmacy 84.75 Normal [facility] Comment on above: Performed By: #### B MP, CBC #### [place] [address] [place] GFR/1.73 sq M.predicted MDRD (S/P/Bld) [Vol rate/Area] mL/min/{1.73_m2} Normal [facility] Comment on above: Performed By: #### B MP, CBC #### [address] Glucose [Mass/Vol] 194 mg/dL High 70-100 [facility] Comment on above: Result Comment: [place] Glucose Reference Range is dependent on time and content of last meal. Glucose of more than 200 mg/dL in a nonstressed, ambulatory subject supports the diagnosis of Diabetes Mellitus. ADA recommended reference range Performed By: #### B MP, CBC #### [place] [address] [place] Potassium [Moles/Vol] 3.7 mmol/L Normal 3.5-5.1 [facility] Comment on above: Performed By: #### B MP, CBC #### [place] [address] [place] Sodium [Moles/Vol] 137 mmol/L Normal 136-145 [facility] Comment on above: Performed By: #### B MP, CBC #### [place] [address] [place] Urea nitrogen [Mass/Vol] 27 mg/dL High 7-25 [facility] Comment on above: Performed By: #### B MP, CBC #### [address] Complete Blood Count Auto Di ffon 05-25-2023 Basophils (Bld) [#/Vol] 0.0 10*3/uL Normal 0.0-0.2 [facility] Comment on above: Result Comment: PERF ORMED BY: [place] [address] PATHOLOGIST JOURNEYMAN PIPE WELDER ROBERTO OCAMPO M.D. Performed By: #### B MP, CBC #### [address] Basophils/100 WBC (Bld) 0.2 % Normal . [facility] Comment on above: Performed By: #### B MP, CBC #### [address] Eosinophils (Bld) [#/Vol] 0.0 10*3/uL Normal 0.0-0.45 [facility] Comment on above: Performed By: #### B MP, CBC #### [address] Eosinophils/100 WBC (Bld) 0.0 % Normal . [facility] Comment on above: Performed By: #### B MP, CBC #### [address] Erythrocyte distribution width (RBC) [Ratio] 14.3 % Normal 12.0-14.8 [facility] Comment on above: Performed By: #### B MP, CBC #### [address] Hematocrit (Bld) [Volume fraction] 37.6 % Low 38.8-50.0 [facility] Comment on above: Performed By: #### B MP, CBC #### [address] Hemoglobin (Bld) [Mass/Vol] 12.7 g/dL Low 13.0-17.0 [facility] Comment on above: Performed By: #### B MP, CBC #### [facility] [address] Lymphocytes (Bld) [#/Vol] 0.9 10*3/uL Low 1.00-4.8 [facility] Comment on above: Performed By: #### B MP, CBC #### [facility] [address] Lymphocytes/100 WBC (Bld) 5.4 % Normal . [facility] Comment on above: Performed By: #### B MP, CBC #### [facility] [address] MCH (RBC) [Entitic mass] 33.1 pg Normal 27.5-35.2 [facility] Comment on above: Performed By: #### B MP, CBC #### [address] MCV (RBC) [Entitic vol] 97.6 fL Normal 83.5-101 [facility] Comment on above: Performed By: #### B MP, CBC #### [address] Mean Corpuscular HGB Conc 33.9 g/dL Normal 32.5-35.6 [facility] Comment on above: Performed By: #### B MP, CBC #### [facility] [address] [place] [address] [place] Monocytes (Bld) [#/Vol] 0.6 10*3/uL Normal 0.0-0.8 [facility] Comment on above: Performed By: #### B MP, CBC #### [place] [address] [place] Monocytes/100 WBC (Bld) 3.6 % Normal . [facility] Comment on above: Performed By: #### B MP, CBC #### [facility] [address] Neutrophils (Bld) [#/Vol] 15.9 10*3/uL High 1.8-7.7 [facility] Comment on above: Performed By: #### B MP, CBC #### [facility] [address] Neutrophils/100 WBC (Bld) 90.8 % Normal . [facility] Comment on above: Performed By: #### B MP, CBC #### [facility] [address] NRBC% 0.0 /100{WBC} Normal 0-0.5 [facility] Comment on above: Performed By: #### B MP, CBC #### [facility] [address] Platelet mean volume (Bld) [Entitic vol] 9.3 fL Normal 6.6-10.1 [facility] Comment on above: Performed By: #### B MP, CBC #### [facility] [address] Platelets (Bld) [#/Vol] 207 10*3/uL Normal 150-450 [facility] Comment on above: Performed By: #### B MP, CBC #### [facility] [address] [place] [address] [place] RBC (Bld) [#/Vol] 3.85 10*6/uL Low 3.90-5.60 [facility] Comment on above: Performed By: #### B MP, CBC #### [place] [address] [place] WBC (Bld) [#/Vol] 17.5 10*3/uL High 4.1-10.5 [facility] Comment on above: Performed By: #### B MP, CBC #### [facility] [address] [place] [address] [place] Creatine Kinaseon 05-25-2023 CK [Catalytic activity/Vol] 198 U/L Normal 30-223 [facility] Comment on above: Performed By: #### B MP, CBC #### [facility] [address] ECG 12 lead ECGon 05-25-2023 ECG 12 lead ECG [facility] Main [place] [id number] Electrocardiograph Report Signed Patient: Tejas Ray MR#: [id number] 0 : 1965 Acct:[id number] Age/Sex: 58 / M ADM Date: 05/24/23 Loc: Room: [address] [place] [address] Type: ADM IN Attending Dr: Artuor Dolan DO Ordering Provider: Arturo Dolan DO [...] 0 05/25/23 1440 Normal [facility] ECH echo transthoracicon ECH echo transthoracic [facility] Main [place] [id number] Echocardiogram Signed Patient: Tejas Ray MR#: [id number] 0 : 1965 Acct:[id number] Age/Sex: 58 / M ADM Date: 05/24/23 Loc: Room: [address] [place] [address] Type: ADM IN Attending Dr: Arturo Dolan DO Ordering Provider: Arturo Dolan DO Date of Service: 05/24/23 ECH/ECH echo transthoracic: new A-Fib with RVR Copies to: DO Linh Contioulssi,MD Weight: 331 lb Performed By: BENJAMIN Valente [...] MD 05/25/23 1150 Normal [facility] Magnesiumon 05-25-2023 Magnesium [Mass/Vol] 1.9 mg/dL Normal 1.9-2.7 [facility] Comment on above: Result Comment: PERF ORMED BY: [place] [phone] PATHOLOGIST JOURNEYMAN PIPE WELDER ROBERTO OCAMPO M.D. Performed By: #### B MP, CBC #### [facility] [address] [place] [address] Troponin I High Sensitivityo n 05-25-2023 Troponin I High Sensitivity 7.0 pg/mL Normal 0.0-20.0 [facility] Comment on above: Result Comment: PERF ORMED BY: [place] [phone] PATHOLOGIST JOURNEYMAN PIPE WELDER ROBERTO OCAMPO M.D. Performed By: #### B MP, CBC #### [facility] [address] [place] [address] A1C with Estimated Average G luon 05-24-2023 Glucose [Mass/Vol] 131 mg/dL Normal [facility] Comment on above: Result Comment: PERF ORMED BY: [place] [phone] PATHOLOGIST JOURNEYMAN PIPE WELDER ROBERTO OCAMPO M.D. Performed By: #### P TT, HEPATIC, BMP, PT #### [facility] [address] [place] [address] HbA1c (Bld) [Mass fraction] 6.2 % High 4.3-5.6 [facility] Comment on above: Result Comment: Incr eased risk for diabetes: 5.7 - 6.4 diabetes: >6.4 glycemic control for adults with diabetes: <7.0 Performed By: #### P TT, HEPATIC, BMP, PT #### [address] Activated partial thrombopla stin time (aPTT) in platelet poor plasma by coagulation aOrdered By: Ria Talamantes on 05-24-2023 aPTT Coag (PPP) [Time] 27.5 s 25.1-36.5 [facility] Comment on above: A hematocrit value g reater than 55% may lead to inaccurate results in coagulation testing. Patients having hematocrit values >55% require a special collection tube for coagulation studies. Please contact the laboratory at [phone] for redraw instructions. Aerobic Cultureon 05-24-2023 Aerobic Culture Result Tab Codes Moderate Normal Respiratory [place] 2 Days Gram Stain Result 1+ Gram Positive Cocci in Clusters 1+ Gram Negative Bacilli 1+ White Blood Cells 1+ Epithelial Cells * This is a corrected result. * A prior result that was reported as final has been changed. PERFORMED BY: [place] [address] PATHOLOGIST JOURNEYMAN PIPE WELDER ROBERTO OCAMPO M.D. Normal [facility] Comment on above: Performed By: #### P TT, HEPATIC, BMP, PT #### [address] Automated basophil %Ordered By: Ria Talamantes on 05-24-2023 Basophils/100 WBC (Bld) 0.5 % Normal . [facility] Comment on above: Performed By: #### B MP, CBC #### [address] Automated basophil countOrde red By: Ria Talamantes on 05-24-2023 Basophils (Bld) [#/Vol] 0.1 10*3/uL Normal 0.0-0.2 [facility] Comment on above: Result Comment: PERF ORMED BY: [place] [address] PATHOLOGIST JOURNEYMAN PIPE WELDER ROBERTO OCAMPO M.D. Performed By: #### B MP, CBC #### [address] Automated blood monocyte cou ntOrdered By: Ria Talamantes on 05-24-2023 Monocytes (Bld) [#/Vol] 0.9 10*3/uL High 0.0-0.8 [facility] Comment on above: Performed By: #### B MP, CBC #### [address] Automated eosinophil %Ordere d By: Ria Talamantes on 05-24-2023 Eosinophils/100 WBC (Bld) 0.9 % Normal . [facility] Comment on above: Performed By: #### B MP, CBC #### [address] Automated eosinophil countOr dered By: Ria Talamantes on 05-24-2023 Eosinophils (Bld) [#/Vol] 0.1 10*3/uL Normal 0.0-0.45 [facility] Comment on above: Performed By: #### B MP, CBC #### [address] Automated erythrocytes count in urine sediment (number/area)Ordered By: Ria Talamantes on 05-24-2023 RBC Auto (Urine sed) [#/Area] None seen [HPF] 0-4 [facility] Automated leukocytes count i n urine sediment (number/area)Ordered By: Ria Talamantes on 05-24-2023 WBC Auto (Urine sed) [#/Area] None seen [HPF] 0-4 [facility] Automated monocyte %Ordered By: Ria Talamantes on 05-24-2023 Monocytes/100 WBC (Bld) 5.7 % Normal . [facility] Comment on above: Performed By: #### B MP, CBC #### [address] Automated neutrophil %Ordere d By: Ria Talamantes on 05-24-2023 Neutrophils/100 WBC (Bld) 86.6 % Normal . [facility] Comment on above: Performed By: #### B MP, CBC #### [address] Automated urine color determ inationOrdered By: Ria Talamantes on 05-24-2023 Color (U) Yellow Normal Yellow [facility] Comment on above: Order Comment: Name Collection Type:: Clean-Voided Midstream Performed By: #### P TT, HEPATIC, BMP, PT #### [address] BNP ser/plasOrdered By: Cuca Talamantes on 05-24-2023 Natriuretic peptide B (Bld) [Mass/Vol] 221.0 pg/mL High 5-100 [facility] Comment on above: Result Comment: PERF ORMED BY: [place] [address] PATHOLOGIST JOURNEYMAN PIPE WELDER ROBERTO OCAMPO M.D. Performed By: #### B MP, CBC #### [address] Basic Metabolic Panelon 05-06 Creatinine Clr Calc Pharmacy 79.52 Normal [facility] Comment on above: Result Comment: PERF ORMED BY: [place] [address] PATHOLOGIST JOURNEYMAN PIPE WELDER ROBERTO OCAMPO M.D. Performed By: #### B MP, CBC #### [address] GFR/1.73 sq M.predicted MDRD (S/P/Bld) [Vol rate/Area] 58.542 mL/min/{1.73_m2} Normal [facility] Comment on above: Performed By: #### B MP, CBC #### [address] Bilirubin Test strip Ql (U)O rdered By: Ria Talamantes on 05-24-2023 Bilirubin Ql (U) Negative Negative [facility] Blood Cultureon 05-24-2023 Bacteria identified Cx Nom (Bld) NO GROWTH 5 DAYS PERFORMED BY: [facility] [address] [place] [id number] PATHOLOGIST JOURNEYMAN PIPE WELDER ROBERTO OCAMPO M.D. Normal [facility] Comment on above: Performed By: #### P TT, HEPATIC, BMP, PT #### [facility] [address] Bacteria identified Cx Nom (Bld) Gram [...] gene [Presence] by Molecular method Not Applicable Anaeblle krusei DNA [Presence] by PRITESH with non-probe [...] culture Not detected Group A (Streptococcus pyogenes) [id number] Not detected Group B Strep (Streptococcus agalactiae) [...] content not included)... Normal [facility] Comment on above: Performed By: #### P TT, HEPATIC, BMP, PT #### [facility] [address] COVID CepheidOrdered By: Greg Talamantes on 05-24-2023 SARS-CoV-2 (COVID-19) Ab IA Ql Negative Negative [facility] Comment on above: This is a duplicate Cepheid Xpert Xpress CoV-2/Flu/RSV Plus RNA by RT-PCR result to be used for statistical tracking purpose only. SARS-CoV-2 (COVID-19) RNA PRITESH+probe Ql (Unsp spec) [facility] COVID-19 / Flu A/B / RSV [...] or Cepheid Disclaimer revoked sooner. PERFORMED BY: [place] [address] PATHOLOGIST JOURNEYMAN PIPE WELDER ROBERTO OCAMPO M.D. Normal [facility] Comment on above: Performed By: #### P TT, HEPATIC, BMP, PT #### [address] angio chest PE protocolon 05-24-2023 CT angio chest PE protocol [facility] [place] [address] CT Scan Report Signed Patient: Tejas Ray MR#: [id number] 0 : 1965 Acct:[id number] Age/Sex: 58 / M ADM Date: 05/24/23 Loc: ER Room: Type: [facility] ER Attending Dr: Copies to: [...] Kulwinder Miller M.D.05/24/2023 5:17 PM Dictation Location: [place] [address] Transcribed By: [facility] 05/24/231716 Dictated By: Kulwinder Miller DO 05/24/231711 Signed By: 05/24/231716 Normal [facility] Calcium [Mass/volume] in Ser um or PlasmaOrdered By: Ria Talamantes on 05-24-2023 Calcium [Mass/Vol] 9.2 mg/dL Normal 8.6-10.3 [facility] Comment on above: Performed By: #### B PATRICIA CBC #### [facility] [address] Carbon dioxide, total [Moles /volume] in Serum or PlasmaOrdered By: Ria Talamantes on 05-24-2023 CO2 [Moles/Vol] 22.1 mmol/L Normal 21.0-31.0 [facility] Comment on above: Performed By: #### B MP, CBC #### [facility] [address] Cepheid COVID PCR Negativeon 05-24-2023 SARS-CoV-2 (COVID-19) RNA PRITESH+probe Ql (Unsp spec) Negative Normal Negative [facility] Comment on above: Result Comment: This is a duplicate Cepheid Xpert Xpress CoV-2/Flu/RSV Plus RNA by RT-PCR result to be used for statistical tracking purpose only. PERFORMED BY: [place] [address] PATHOLOGIST JOURNEYMAN PIPE WELDER ROBERTO OCAMPO M.D. Performed By: #### P TT, HEPATIC, BMP, PT #### [address] Chloride [Moles/volume] in S rafy or PlasmaOrdered By: Ria Talamantes on 05-24-2023 Chloride [Moles/Vol] 105 mmol/L Normal 98-[facility] Comment on above: Performed By: #### B MP, CBC #### [address] Complete Blood Count Auto Di ffon 05-24-2023 Mean Corpuscular HGB Conc 33.8 g/dL Normal 32.5-35.6 [facility] Comment on above: Performed By: #### B MP, CBC #### [address] Monocytes/100 WBC (Bld) 20.36 % High 0.00-20.00 [facility] Comment on above: Result Comment: For adults in ED, MDW > 20.0 may be associated with a higher risk of sepsis during the first 12 hrs of hospital admission Performed By: #### B MP, CBC #### [address] NRBC% 0.0 /100{WBC} Normal 0-0.5 [facility] Comment on above: Performed By: #### B MP, CBC #### [address] Creatine Kinaseon 05-24-2023 CK [Catalytic activity/Vol] 251 U/L High 30-223 [facility] Comment on above: Performed By: #### P TT, HEPATIC, BMP, PT #### [address] Creatinine [Mass/volume] in Serum or PlasmaOrdered By: Ria Talamantes on 05-24-2023 Creatinine [Mass/Vol] 1.38 mg/dL High 0.70-1.[address] [facility] Comment on above: Performed By: #### B MP, CBC #### [address] D-Dimer High Sensitivityon 0 05-24-2023 D-Dimer High Sensitivity 296 ng/mL High 0-243 [facility] Comment on above: Result Comment: [...] coagulation studies. Please contact the laboratory at [phone] for redraw instructions. PERFORMED BY: [place] [address] PATHOLOGIST JOURNEYMAN PIPE WELDER ROBERTO OCAMPO M.D. Performed By: #### P TT, HEPATIC, BMP, PT #### [address] Dipstick and Microscopicon 0 05-24-2023 Appearance (U) Clear Normal Clear [facility] Comment on above: Order Comment: Name Collection Type:: Clean-Voided Midstream Performed By: #### P TT, HEPATIC, BMP, PT #### [address] Bacteria,Urine None Seen Normal None Seen [facility] Comment on above: Order Comment: Name Collection Type:: Clean-Voided Midstream Performed By: #### P TT, HEPATIC, BMP, PT #### [address] Bilirubin,Urine Negative Normal Negative [facility] Comment on above: Order Comment: Name Collection Type:: Clean-Voided Midstream Performed By: #### P TT, HEPATIC, BMP, PT #### [facility] [address] Glucose Ql (U) Normal Normal Normal [facility] Comment on above: Order Comment: Name Collection Type:: Clean-Voided Midstream Performed By: #### P TT, HEPATIC, BMP, PT #### [address] Hyaline Casts,Urine 0-8 Normal 0-8 [facility] Comment on above: Order Comment: Name Collection Type:: Clean-Voided Midstream Result Comment: PERF ORMED BY: [place] [address] PATHOLOGIST JOURNEYMAN PIPE WELDER ROBERTO OCAMPO M.D. Performed By: #### P TT, HEPATIC, BMP, PT #### [address] Ketones Ql (U) Negative Normal Negative [facility] Comment on above: Order Comment: Name Collection Type:: Clean-Voided Midstream Performed By: #### P TT, HEPATIC, BMP, PT #### [address] Leukocyte esterase Test strip Ql (U) Negative Normal Negative [facility] Comment on above: Order Comment: Name Collection Type:: Clean-Voided Midstream Performed By: #### P TT, HEPATIC, BMP, PT #### [place] [address] [place] Nitrite,Urine Negative Normal Negative [facility] Comment on above: Order Comment: Name Collection Type:: Clean-Voided Midstream Performed By: #### P TT, HEPATIC, BMP, PT #### [place] [address] Occult Blood,Urine Negative Normal Negative [facility] Comment on above: Order Comment: Name Collection Type:: Clean-Voided Midstream Result Comment: PERF ORMED BY: [place] [address] PATHOLOGIST JOURNEYMAN PIPE WELDER ROBERTO OCAMPO M.D. Performed By: #### P TT, HEPATIC, BMP, PT #### [address] RBC,Urine None Seen Normal 0-4 [facility] Comment on above: Order Comment: Name Collection Type:: Clean-Voided Midstream Performed By: #### P TT, HEPATIC, BMP, PT #### [address] Specificy [place],Urine 1.021 Normal 1.001-1.03 0 [facility] Comment on above: Order Comment: Name Collection Type:: Clean-Voided Midstream Performed By: #### P TT, HEPATIC, BMP, PT #### [address] Squamous Epithelial Cell,Urine None Seen Normal 0-2 [facility] Comment on above: Order Comment: Name Collection Type:: Clean-Voided Midstream Performed By: #### P TT, HEPATIC, BMP, PT #### [address] Urobilinogen,Urine Normal Normal Normal [facility] Comment on above: Order Comment: Name Collection Type:: Clean-Voided Midstream Performed By: #### P TT, HEPATIC, BMP, PT #### [address] WBC,Urine None Seen Normal 0-4 [facility] Comment on above: Order Comment: Name Collection Type:: Clean-Voided Midstream Performed By: #### P TT, HEPATIC, BMP, PT #### [address] ECG 12 lead ECGon 05-24-2023 ECG 12 lead ECG [facility] [place] [address] Electrocardiograph Report Signed Patient: Tejas Ray MR#: [id number] 0 : 1965 Acct:[id number] Age/Sex: 58 / M ADM Date: 05/24/23 Loc: Room: [address] [place] [address] Type: ADM IN Attending Dr: Arturo Dolan [...] By: [facility] Signed By Nino Garrido MD 05/24/231930 Normal [facility] Erythrocyte distribution wid th [Ratio] by Automated countOrdered By: Ria Talamantes on 05-24-2023 Erythrocyte distribution width (RBC) [Ratio] 13.9 % Normal 12.0-14.8 [facility] Comment on above: Performed By: #### B MP, CBC #### [facility] [address] [place] [address] Erythrocytes [#/volume] in B lood by Automated countOrdered By: Ria Talamantes on 05-24-2023 RBC (Bld) [#/Vol] 4.47 10*6/uL Normal 3.90-5.60 [facility] Comment on above: Performed By: #### B MP, CBC #### [facility] [address] [place] [address] Fibrin D-dimer [Presence] in Platelet poor plasma by Latex agglutinationOrdered By: Ria Talamantes on 05-24-2023 Fibrin D-dimer LA Ql (PPP) 296 ng/mL 0-243 [facility] Comment on above: The reference range [...] coagulation studies. Please contact the laboratory at [phone] for redraw instructions. Free T4 (Free Thyroxine)on 0 05-24-2023 Free T4 [Mass/Vol] 0.88 ng/dL Normal 0.61-1.12 [facility] Comment on above: Performed By: #### P TT, HEPATIC, BMP, PT #### [facility] [address] [place] [id number] [facility] Glucose [Mass/volume] in Ser um or PlasmaOrdered By: Ria Talamantes on 05-24-2023 Glucose [Mass/Vol] 110 mg/dL High 70-100 [facility] Comment on above: ADA recommended refe rence rangeRandom Glucose Reference Range is dependent on time and content of last meal. Glucose of more than 200 mg/dL in a nonstressed, ambulatory subject supports the diagnosis of Diabetes Mellitus. Result Comment: [place] om Glucose Reference Range is dependent on time and content of last meal. Glucose of more than 200 mg/dL in a nonstressed, ambulatory subject supports the diagnosis of Diabetes Mellitus. ADA recommended reference range Performed By: #### B MP, CBC #### [facility] [address] [id number] [place] Gram Stainon 05-24-2023 Microscopic observation Gram stain Nom (Unsp spec) Gram Stain Result 1+ Gram Positive Cocci in Clusters 1+ Gram Negative Bacilli 1+ White Blood Cells 1+ Epithelial Cells * This is a corrected result. * A prior result that was reported as final has been changed. PERFORMED BY: [place] [address] PATHOLOGIST JOURNEYMAN PIPE WELDER ROBERTO OCAMPO M.D. Normal [facility] Comment on above: Performed By: #### P TT, HEPATIC, BMP, PT #### [address] Hematocrit [Volume Fraction] of Blood by Automated countOrdered By: Ria Talamantes on 05-24-2023 Hematocrit (Bld) [Volume fraction] 43.2 % Normal 38.8-50.0 [facility] Comment on above: Performed By: #### B MP, CBC #### [address] Hemoglobin [Mass/volume] in BloodOrdered By: Ria Talamantes on 05-24-2023 Hemoglobin (Bld) [Mass/Vol] 14.6 g/dL Normal 13.0-17.0 [facility] Comment on above: Performed By: #### B MP, CBC #### [address] INR in Platelet poor plasma by Coagulation assayOrdered By: Ria Talamantes on 05-24-2023 INR Coag (PPP) [Relative time] 1.1 {INR} Normal [facility] Comment on above: INR Therapeutic Rang [...] P TT, HEPATIC, BMP, PT #### [facility] [address] [place] [address] Ketones Auto test strip (U) [Mass/Vol]Ordered By: Ria Talamantes on 05-24-2023 Ketones (U) [Mass/Vol] Negative Negative [facility] Vitaliy Thyroxine (T4)on T4 [Mass/Vol] 6.9 ug/dL Normal 4.5-12.0 [facility] Comment on above: Result Comment: Perf ormed at: - [facility] [address] [id number] Accounts Payable Specialist: Edwin Nazario PhD, Phone: [phone] PERFORMED BY: [place] [address] PATHOLOGIST JOURNEYMAN P[employer] WELDER ROBERTO OCAMPO M.D. Performed By: #### L C T4 #### [facility] , Laboratory - UrinalysisOrder ed By: Ria Talamantes on 05-24-2023 Hyaline casts LM Ql (Urine sed) 0-8 [LPF] 0-8 [facility] Lactate [Moles/volume] in Se rum or PlasmaOrdered By: Ria Talamantes on 05-24-2023 Lactate [Moles/Vol] 1.8 mmol/L Normal 0.5-2.2 [facility] Comment on above: Result Comment: PERF ORMED BY: [place] [address] PATHOLOGIST JOURNEYMAN PIPE WELDER ROBERTO OCAMPO M.D. Performed By: #### P TT, HEPATIC, BMP, PT #### [facility] [address] [place] [address] Leukocytes [#/volume] correc isaiah for nucleated erythrocytes in Blood by Automated counOrdered By: Ria Talamantes on 05-24-2023 WBC corrected for nucl RBC Auto (Bld) [#/Vol] 15.3 10*3/uL 4.1-10.5 [facility] Leukocytes [#/volume] in Blo od by Automated countOrdered By: Ria Talamantes on 05-24-2023 WBC (Bld) [#/Vol] 15.3 10*3/uL High 4.1-10.5 [facility] Comment on above: Performed By: #### B MP, CBC #### [facility] [address] [place] [address] Lymphocytes [#/volume] in Bl ood by Automated countOrdered By: Ria Talamantes on 05-24-2023 Lymphocytes (Bld) [#/Vol] 1.0 10*3/uL Normal 1.00-4.8 [facility] Comment on above: Performed By: #### B MP, CBC #### [address] Lymphocytes/100 leukocytes i n Blood by Automated countOrdered By: Ria Talamantes on 05-24-2023 Lymphocytes/100 WBC (Bld) 6.3 % Normal . [facility] Comment on above: Performed By: #### B MP, CBC #### [facility] [address] [place] [address] MCH [Entitic mass] by Automa isaiah countOrdered By: Ria Talamantes on 05-24-2023 MCH (RBC) [Entitic mass] 32.7 pg Normal 27.5-35.2 [facility] Comment on above: Performed By: #### B MP, CBC #### [facility] [address] [place] [address] MCHC Auto (RBC) [Mass/Vol]Or dered By: Ria Talamantes on 05-24-2023 MCHC (RBC) [Mass/Vol] 33.8 g/dL 32.5-35.[address] [facility] MCV [Entitic volume] by Auto mated countOrdered By: Ria Talamantes on 05-24-2023 MCV (RBC) [Entitic vol] 96.7 fL Normal 83.5-101 [facility] Comment on above: Performed By: #### B MP, CBC #### [facility] [address] Magnesium [Mass/volume] in S rafy or PlasmaOrdered By: Ria Talamantes on 05-24-2023 Magnesium [Mass/Vol] 1.9 mg/dL Normal 1.9-2.7 [facility] Comment on above: Result Comment: PERF ORMED BY: [place] [address] PATHOLOGIST JOURNEYMAN PIPE WELDER ROBERTO OCAMPO M.D. Performed By: #### B MP, CBC #### [facility] [address] [place] [address] Monocyte distribution width [Entitic volume] in Blood by AutomatedOrdered By: Ria Talamantes on 05-24-2023 Monocyte distribution width Auto (Bld) [Entitic vol] 20.36 % 0.00-20.00 [facility] Comment on above: For adults in ED, MD W > 20.0 may be associated with a higher risk of sepsis during the first 12 hrs of hospital admission Neutrophils [#/volume] in Bl ood by Automated countOrdered By: Ria Talamantes on 05-24-2023 Neutrophils (Bld) [#/Vol] 13.3 10*3/uL High 1.8-7.7 [facility] Comment on above: Performed By: #### B MP, CBC #### [facility] [address] [place] [address] [place] Nitrite Test strip Ql (U)Ord ered By: Ria Talamantes on 05-24-2023 Nitrite Ql (U) Negative Negative [facility] No Panel InformationOrdered By: Ria Talamantes on 05-24-2023 Estimated GFR (CKD-EPI) 58.542 mL/Min [facility] Creatinine Clearance (Chem 79.52 [facility] Nucleated erythrocytes [Pres ence] in Blood by Automated countOrdered By: Ria Talamantes on 05-24-2023 Nucleated RBC Auto Ql (Bld) 0.0 /100{WBC} 0-0.5 [facility] Partial Thromboplastin Timeo n 05-24-2023 aPTT Coag (Bld) [Time] 27.5 s Normal 25.1-36.5 [facility] Comment on above: Result Comment: A he matocrit value greater than 55% may lead to inaccurate results in coagulation testing. Patients having hematocrit values >55% require a special collection tube for coagulation studies. Please contact the laboratory at [phone] for redraw instructions. PERFORMED BY: [place] [address] PATHOLOGIST JOURNEYMAN PIPE WELDER ROBERTO OCAMPO M.D. Performed By: #### P TT, HEPATIC, BMP, PT #### [address] Platelet mean volume [Entiti c volume] in Blood by Automated countOrdered By: Ria Talamantes on 05-24-2023 Platelet mean volume (Bld) [Entitic vol] 9.6 fL Normal 6.6-10.1 [facility] Comment on above: Performed By: #### B MP, CBC #### [address] Platelets [#/volume] in Bloo d by Automated countOrdered By: Rai Talamantes on 05-24-2023 Platelets (Bld) [#/Vol] 246 10*3/uL Normal 150-450 [facility] Comment on above: Performed By: #### B MP, CBC #### [place] [address] [place] Potassium [Moles/volume] in Serum or PlasmaOrdered By: Ria Talamantes on 05-24-2023 Potassium [Moles/Vol] 4.1 mmol/L Normal 3.5-5.[address] [facility] Comment on above: Performed By: #### B MP, CBC #### [address] Prothrombin time (PT)Ordered By: Ria Talamantes on 05-24-2023 PT Coag (PPP) [Time] 12.8 s Normal 9.0-12.9 [facility] Comment on above: A hematocrit value g reater than 55% may lead to inaccurate results in coagulation testing. Patients having hematocrit values >55% require a special collection tube for coagulation studies. Please contact the laboratory at [phone] for redraw instructions. Result Comment: A he matocrit value greater than 55% may lead to inaccurate results in coagulation testing. Patients having hematocrit values >55% require a special collection tube for coagulation studies. Please contact the laboratory at [phone] for redraw instructions. Performed By: #### P TT, HEPATIC, BMP, PT #### [facility] [address] [place] [address] Serum or plasma anion gap de terminationOrdered By: Ria Talamantes on 05-24-2023 Anion gap [Moles/Vol] 13.0 mmol/L Normal 6.0-15.0 [facility] Comment on above: Performed By: #### B MP, CBC #### [facility] [address] [place] [address] Sodium [Moles/volume] in Ser um or PlasmaOrdered By: Ria Talamantes on 05-24-2023 Sodium [Moles/Vol] 136 mmol/L Normal 136-145 [facility] Comment on above: Performed By: #### B MP, CBC #### [facility] [address] [place] [address] Specific gravity Auto test s trip (U) [Rel density]Ordered By: Ria Talamantes on 05-24-2023 Specific gravity (U) [Rel density] 1.021 1.001-1.03 0 [facility] Squamous epithelial cells de tection in urine sediment by light microscopyOrdered By: Ria Talamantes on 05-24-2023 Epithelial cells.squamous LM Ql (Urine sed) None seen [HPF] 0-2 [facility] Thyroid Stimulating Hormoneo n 05-24-2023 TSH Qn 1.10 m[IU]/L Normal 0.45-5.33 [facility] Comment on above: Result Comment: PERF ORMED BY: [place] [address] PATHOLOGIST JOURNEYMAN PIPE WELDER ROBERTO OCAMPO M.D. Performed By: #### P TT, HEPATIC, BMP, PT #### [address] [address] [place] Troponin I High Sensitivityo n 05-24-2023 Troponin I High Sensitivity 11.5 pg/mL Normal 0.0-20.0 [facility] Comment on above: Result Comment: PERF ORMED BY: [place] [address] PATHOLOGIST JOURNEYMAN PIPE WELDER ROBERTO OCAMPO M.D. Performed By: #### P TT, HEPATIC, BMP, PT #### [address] Troponin I High Sensitivity 8.9 pg/mL Normal 0.0-20.0 [facility] Comment on above: Result Comment: PERF ORMED BY: [place] [address] PATHOLOGIST JOURNEYMAN PIPE WELDER ROBERTO OCAMPO M.D. Performed By: #### B MP, CBC #### [address] [id number] [facility] Troponin I.cardiac [Mass/vol ume] in Serum or Plasma by Detection limit <= 0.01 ng/Ordered By: Ria Talamantes on 05-24-2023 Troponin I.cardiac DL <= 0.01 ng/mL [Mass/Vol] 8.9 pg/mL 0.0-20.0 [facility] Urea nitrogen [Mass/volume] in Serum or PlasmaOrdered By: Ria Talamantes on 05-24-2023 Urea nitrogen [Mass/Vol] 23 mg/dL Normal 7-25 [facility] Comment on above: Performed By: #### B MP, CBC #### [address] [id number] [facility] Urine bacteria detection by automated methodOrdered By: Ria Talamantes on 01-19-2024 Bacteria Auto Ql (U) None seen None Seen [facility] Urine clarity by refractomet ry automatedOrdered By: Ria Talamantes on 05-24-2023 Clarity Refractometry automated (U) Clear Clear [facility] Urine glucose measurement by automated test strip (mass/volume)Ordered By: Ria Talamantes on 05-24-2023 Glucose Auto test strip (U) [Mass/Vol] Normal mg/dL Normal [facility] Urine hemoglobin detection b y automated test stripOrdered By: Ria Talamantes on 05-24-2023 Hemoglobin Auto test strip Ql (U) Negative Negative [facility] Urine leukocyte esterase det ection by automated test stripOrdered By: Ria Talamantes on 05-24-2023 Leukocyte esterase Auto test strip Ql (U) Negative Negative [facility] Urine pH measurement by auto mated test stripOrdered By: Ria Talamantes on 05-24-2023 pH (U) 5.5 [pH] Normal 5.0-9.0 [facility] Comment on above: Order Comment: Name Collection Type:: Clean-Voided Midstream Performed By: #### P TT, HEPATIC, BMP, PT #### [facility] [address] [place] [address] [place] Urine protein measurement by automated test strip (mass/volume)Ordered By: Ria Talamantes on 05-24-2023 Protein (U) [Mass/Vol] 30 mg/dL High Negative [facility] Comment on above: Order Comment: Name Collection Type:: Clean-Voided Midstream Performed By: #### P TT, HEPATIC, BMP, PT #### [facility] [address] [id number] [place] Urobilinogen Auto test strip (U) [Mass/Vol]Ordered By: Ria Talamantes on 05-24-2023 Urobilinogen (U) [Mass/Vol] Normal mg/dL Normal [facility] CBC AUTO DIFFon 03-10-2021 BASO # 0.1 103/ul Normal 0.0-0.1 [facility] Comment on above: Performed By: #### C BC #### [facility] [address] [place] [address] Dr. Christina Heredia Basophils/100 WBC (Bld) 0.7 % Normal 0.2-2.0 [facility] Comment on above: Performed By: #### C BC #### [facility] [address] [place] [address] Dr. Christina Heredia EO # 0.2 103/ul Normal 0.0-0.7 [facility] Comment on above: Performed By: #### C BC #### [facility] [address] [place] [address] Dr. Christina Heredia Eosinophils/100 WBC (Bld) 1.7 % Normal 0.9-7.0 [facility] Comment on above: Performed By: #### C BC #### [facility] [address] [place] [address] Dr. Christina Heredia Erythrocyte distribution width (RBC) [Ratio] 12.6 % Normal 11.0-15.0 [facility] Comment on above: Performed By: #### C BC #### [facility] [address] [place] [address] Dr. Christina Heredia Hematocrit (Bld) [Volume fraction] 43.9 % Normal 42.0-54.0 [facility] Comment on above: Performed By: #### C BC #### [facility] [address] [place] [address] Dr. Christina Heredia Hemoglobin (Bld) [Mass/Vol] 14.1 g/dL Normal 14.0-18.0 [facility] Comment on above: Performed By: #### C BC #### [facility] [address] [place] [address] Dr. Christina Heredia IG # 0.13 10e3/ul Critically high 0.00-0.03 [facility] Comment on above: Performed By: #### C BC #### [facility] [address] [place] [address] Dr. Christina Heredia IG % 1.5 % Critically high 0.0-0.5 [facility] Comment on above: Performed By: #### C BC #### [facility] [address] [place] [address] Dr. Christina Heredia LYMPH # 2.4 103/ul Normal 1.2-3.8 [facility] Comment on above: Performed By: #### C BC #### [facility] [address] [place] [address] Dr. Christina Heredia Lymphocytes/100 WBC (Bld) 27.0 % Normal 20.5-60.0 [facility] Comment on above: Performed By: #### C BC #### [facility] [address] [place] [address] Dr. Christina Heredia MANUAL DIFF REQ NO Normal [facility] Comment on above: Performed By: #### C BC #### [facility] [address] [place] [address] Dr. Christina Heredia MCH (RBC) [Entitic mass] 30.9 pg Normal 25.9-34.0 [facility] Comment on above: Performed By: #### C BC #### [facility] [address] [place] [address] Dr. Christina Heredia MCHC (RBC) [Mass/Vol] 32.1 g/dL Normal 29.9-35.2 [facility] Comment on above: Performed By: #### C BC #### [facility] [address] [place] [address] Dr. Christina Heredia MCV (RBC) [Entitic vol] 96.3 fL Critically high 80.0-94.0 [facility] Comment on above: Performed By: #### C BC #### [facility] [address] [place] [address] Dr. Christina Heredia MONO # 0.6 103/ul Normal 0.3-0.8 [facility] Comment on above: Performed By: #### C BC #### [facility] [address] [place] [address] Dr. Christina Heredia Monocytes/100 WBC (Bld) 6.4 % Normal 1.7-12.0 [facility] Comment on above: Performed By: #### C BC #### [facility] [address] [place] [address] Dr. Christina Heredia NEUT # 5.5 103/ul Normal 1.4-6.5 [facility] Comment on above: Performed By: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
== END 2024-03-25 09:06 | disposition home or self-care (01) ==
LOC: RAD 09:09
PROVIDERS: PCP Family Medicine; Visit Provider Family Medicine
DX: M25.561 Pain in right knee (principal); M17.11 Unilateral primary osteoarthritis, right knee
CPT/HCPCS: 73562

== ENCOUNTER 2024-10-31 09:00 | Emergency (ER) | payer OTHER, SELFPAY ==
[2024-10-31 09:11] VITALS: BP 167/103; PULSE 100; TEMP 37.3; O2SAT 99; BMI 38.7
--- NOTE | 2024-10-31 09:18 | ED_ITS ---
HPI HPI - General Adult General Chief complaint: Skin/Abscess/Foreign Body Stated complaint: LOWER BACK SORE DUE TO A CYST Time Seen by Provider: 10/31/24 09:02 Source: patient Mode of arrival: walk-in Limitations: no limitations History of Present Illness HPI narrative: 59 male presents to the emergency department for chief complaint of bump on his right buttock. He is worried about an infection. There is been no trauma and he states a small amount of pus came out of it. He states the same thing happened about a year ago and it was cut open and they did not get any more pus out of it. He at this point would prefer to be on antibiotics and delay any incision and drainage. No fever or vomiting or abdominal pain. Related Data Home Medications ?Medication ?Instructions ?Recorded ?Confirmed amiodarone 200 mg tablet 200 mg PO Q12H 07/26/2307/05 apixaban 5 mg tablet (Eliquis) 5 mg PO Q12H 07/26/23 0 07/26/23 diltiazem HCl 120 mg 120 mg PO Q24H 07/26/2307/05 capsule,extended release 24 hr furosemide 40 mg tablet 40 mg PO Q12H 07/26/2307/25 pantoprazole 40 mg tablet,delayed 40 mg PO DAILY 07/2507/26/23 release Previous Rx's ?Medication ?Instructions ?Recorded clindamycin HCl 300 mg capsule 300 mg PO Q6H 21 days # 84 caps 07/31/23 (Cleocin HCl) levofloxacin 750 mg tablet 750 mg PO DAILY #21 tabs cephalexin 500 mg capsule 500 mg PO QID 10 days #40 ca ps 10/31/24 sulfamethoxazole 800 1 tab PO BID 10 days #20 tab s 10/31/24 mg-trimethoprim 160 mg tablet (Bactrim DS) Allergies Allergy/AdvReac Type Severity Reaction Status Date / Time No Known Drug Allergies Allergy Verified 10/31/24 09:15 Opioid HPI Opioid Management Most Recent Opioid Data: Last Pain Scale 0 07/30/23, 09:29 Review of Systems ROS Narrative A ten point review of systems is negative except as noted above. PFSH [facility] Medical History (Updated 10/31/24 @ 09:17 by William Menard MD) Abscess of skin or subcutaneous tissue ?L02.91 - Cutaneous abscess, unspecified (ICD-10) Hiatal hernia ?K44.9 - Diaphragmatic hernia without obstruction or gangrene (ICD-10) Pericardial effusion ?I31.39 - Other pericardial effusion (noninflammatory) (ICD-10) A-fib ?I48.91 - Unspecified atrial fibrillation (ICD-10) Hypertension ?I10 - Essential (primary) hypertension (ICD-10) Surgical History Status post ablation of ventricular arrhythmia ?Z98.890 - Other specified postprocedural states (ICD-10) ?Z86.79 - Personal history of other diseases of the circulatory system (ICD- 10) S/P foot surgery, right ?Z98.890 - Other specified postprocedural states (ICD-10) H/O knee surgery ?Z98.890 - Other specified postprocedural states (ICD-10) Family History Father Family history of myocardial infarction Mother Family history of stroke Family history of hypertension Sister Family history of COPD (chronic obstructive pulmonary disease) Family history of hypertension Social History Within the past year, how often did you have a drink containing alcohol: monthly or less Within the past year, how often did you have six or more drinks on one occasion: never Smoking status: Never smoker Non-prescribed substance use: denies use 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 General: The patient appears well and in no apparent distress. Patient is resting comfortably on cart. Skin: Warm, dry, no pallor noted. There is no rash noted. Head: Normocephalic, atraumatic Eye: Normal conjunctiva, no drainage Ears, Nose, Mouth, and Throat: oral mucosa is moist. Nares patent. Cardiovascular: Regular Rate and Rhythm Respiratory: Patient is in no distress, no accessory muscle use Back: non-tender GI: Soft and nontender Musculoskeletal: On his right buttock near the ischial tuberosity is a firm, nonfluctuant, nondraining area that is approximately 2 inches in diameter. Neurological: A&O, normal speech Psychiatric: Cooperative Constitutional Vital Signs, click to edit/add: Last Vital Signs Temp 99.2 F 10/31/24 09:11 Pulse 100 H 10/31/24 09:11 Resp 18 10/31/24 09:11 BP 167/103 H 10/31/24 09:11 Pulse Ox 99 10/31/24 09:11 O2 Del Method Room Air 10/31/24 09:11 Course Vital Signs Vital signs: Vital Signs Temperature 99.2 F 10/31/24 09:11 Pulse Rate 100 H 10/31/24 09:11 Respiratory Rate 18 10/31/24 09:11 Blood Pressure 167/103 H 10/31/24 09:11 Pulse Oximetry 99 10/31/24 09:11 Oxygen Delivery Method Room Air 10/31/24 09:11 Temperature 99.2 F 10/31/24 09:11 Pulse Rate 100 H 10/31/24 09:11 Respiratory Rate 18 10/31/24 09:11 Blood Pressure 167/103 H 10/31/24 09:11 Pulse Oximetry 99 10/31/24 09:11 Oxygen Delivery Method Room Air 10/31/24 09:11 Medical Decision Making MDM Narrative Medical decision making narrative: We discussed incision and drainage versus antibiotics and he prefers to do antibiotics. He has seen Dr. Dorantes in the past and he was prescribed Bactrim and Keflex and will follow-up with Dr. Dorantes if there is no improvement. Warm soaks were also recommended. Treatment diagnosis and follow-up were discussed with the patient. Differential Diagnosis Differential Diagnosis: Abscess, cellulitis Discharge Plan Discharge Chief Complaint: Skin/Abscess/Foreign Body Clinical Impression: Cellulitis Patient Disposition: Home, Self-Care Time of Disposition Decision: 09:17 Condition: Good Mode of Transportation: Private Vehicle Prescriptions / Home Meds: New sulfamethoxazole-trimethoprim [Bactrim DS] 800-160 mg tablet 1 tab PO BID 10 Days Qty: 20 0RF cephalexin 500 mg capsule 500 mg PO QID 10 Days Qty: 40 0RF No Action amiodarone 200 mg tablet 200 mg PO Q12H Eliquis 5 mg tablet 5 mg PO Q12H diltiazem HCl 120 mg capsule,extended release 24hr 120 mg PO Q24H furosemide 40 mg tablet 40 mg PO Q12H pantoprazole 40 mg tablet,delayed release (DR/EC) 40 mg PO DAILY levofloxacin 750 mg tablet 750 mg PO DAILY Qty: 21 0RF clindamycin HCl [Cleocin HCl] 300 mg capsule 300 mg PO Q6H 21 Days Qty: 84 0RF Print Language: Sammarinese Instructions: Cellulitis (ED), Warm Compress or Soak (ED) Referrals: Storm Guevara MD [Primary Care Provider, Family Practice] - 1 week Jacques Dorantes MD [Physician, General Surgery] - 1 week
[2024-10-31 09:24] VITALS: BP 153/100; PULSE 88; O2SAT 99
--- OUTSIDE RECORDS SUMMARY | 2024-10-31 09:37 | XMS_ITS | CCD ---
Author Organization [facility] Care Team Providers Care Hotel Front Office Manager Name Role Phone DR COSTA GUEVARA Attending Unavailable DR COSTA GUEVARA Consulting Unavailable DR COSTA GUEVARA Admitting Unavailable MD Costa Guevara Primary Care Provider [phone] DO Bassem Lopez Emergency Provider DO Arturo Dolan Admit Provider [phone] DO Arturo Dolan Attending Provider MD Costa Guevara Primary Care Provider [phone] KENDRICK Mckinney Emergency Provider MD Costa Guevara Primary Care Provider [phone] MD Costa Guevara Attending Provider MD Costa Guevara Referring Provider MD Costa Guevara Primary Care Provider [phone] DO Bassem Lopez Emergency Provider Bullimore, Shyann E Admitting Unavailable Bullimore, Shyann E Attending Unavailable Costa Guevara Primary Care Unavailable Costa Guevara Primary Care Unavailable Costa Guevara Attending Unavailable Costa Guevara Referring Unavailable Costa Guevara Admitting Unavailable [place] Consulting Unavailable Costa Guevara Primary Care Unavailable Arturo Dolan Admitting Unavailcolten e Arturo Dolan Attending UnavailDelvis Mráquez Consulting Unavailable Mony Orozco Consulting Unavailable Tejas Schreiber Consulting Unavail able Linh Pza Consulting Unavailable Anthony Rossi Consulting Unavailab Leigh Mehta Consulting Unavailable Sweta Colbert Consulting Unavailable Carrie Benedict Consulting Unavailab Corky Bolden Consulting Unavailable Shanel Card Consulting Unavailable Shana Angeles Consulting Unavailable Edwin Mckinney Admitting Unavailable Edwin Mckinney Attending Unavailable Costa Guevara Primary Care Unavailable Bassem Lopez Attending Unavailable Costa Guevara Primary Care Unavailable Bassem Lopez Admitting Unavailable Costa Guevara MD Primary Care Provider [phone] JANUSZ CAT Attending Unavailable NEGRO TORRES Attending Unavailable JANUSZ CAT Referring Unavailable JANUSZ CAT Referring Unavailable JANUSZ CAT Referring Unavailable NEGRO TORRES Attending Unavailable NEGRO TORRES Attending Unavailable JANUSZ CAT Admitting Unavailable JANUSZ ACT Attending Unavailable NEGRO TORRES Attending Unavailable Medications Current Medications Medication Drug [...] by mouth every six hours Hydrocodone-Acetaminop hen (Smoot) 5-325 mg tablet Discontinued 1 TAB PO [...] hernia without obstruction or gangrene] 04-17-2023 Episodic Aortic; peripheral; and visceral artery aneurysms (2 sources) Aortic ectasia, unspecified site; Translations: [Aortic ectasia, unspecified site] Onset: 10-21-2024 Chronic Cardiac dysrhythmias (20 sources) Supraventricular tachycardia; Translations: [...] [Essential (primary) hypertension] Onset: 07-01-2023 04-17-2023 Chronic Heart valve disorders (2 sources) Nonrheumatic mitral (valve) insufficiency; Translations: [Nonrheumatic mitral (valve) insufficiency] Onset: 10-21-2024 Chronic Hypertension with complications and secondary hypertension (2 sources) Hypertensive heart disease without heart failure; Translations: [Hypertensive heart disease without heart failure] Onset: 04-15-2024 Chronic Lymphadenitis (4 sources) Localized enlarged lymph nodes; Translations: [LOCALIZED ENLARGED LYMPH NODES] Onset: 03-10-2021 Episodic Other connective tissue disease (3 sources) Foot pain; Translations: [Pain in right foot] 05-28-2023 Episodic Other lower respiratory disease (5 sources) [...] 50.0-59.9, adult] Onset: 05-24-2023 05-24-2023 Chronic Other upper respiratory disease (1 source) Abscess, furuncle and carbuncle of nose; Translations: [Abscess, furuncle and carbuncle of nose] Onset: 04-04-2024 Episodic Residual codes; unclassified (4 sources) Hypoxia; Translations: [...] [Pain in right foot] Onset: 05-28-2023 Unclassified (1 source) Supraventricular tachycardia, unspecified; Translations: [Supraventricular tachycardia, unspecified] Onset: 07-01-2023 Unclassified (2 sources) Other persistent atrial fibrillation; Translations: [Other persistent atrial fibrillation] Onset: 12-11-2023 Unclassified (2 sources) Longstanding persistent atrial fibrillation; Translations: [Longstanding persistent atrial fibrillation] Onset: 12-11-2023 Past or Other Problems Problem Classification Problem Date Documented Date Episodic/Chronic Bacterial infection; unspecified site (15 sources) Bacteremia caused by Gram-positive bacteria; Translations: [Bacteremia] Onset: 05-24-2023 05-26-2023 Episodic Diabetes mellitus without complication (12 sources) Prediabetes; Translations: [Prediabetes] Onset: 05-24-2023 04-17-2023 Episodic Other circulatory disease (2 sources) Personal history of other diseases of the circulatory system; Translations: [Personal history of other diseases of the circulatory system] Onset: 04-15-2024 Episodic Other connective tissue disease (1 source) Pain in right lower leg; Translations: [Pain in right lower leg] Onset: 12-02-2023 Episodic Other lower respiratory disease (4 sources) Hypoxemia; Translations: [Hypoxemia] Onset: 05-24-2023 05-24-2023 Episodic Other skin disorders (1 source) Unspecified skin changes; Translations: [Unspecified skin changes] Onset: 05-24-2023 Episodic Pneumonia (except that caused by tuberculosis or sexually transmitted disease) (9 sources) Pneumonia; Translations: [Pneumonia, unspecified organism] Onset: 05-24-2023 05-24-2023 Episodic Residual codes; unclassified (3 sources) Localized edema; Translations: [Edema] Onset: 05-24-2023 05-24-2023 Episodic Residual codes; unclassified (2 sources) Other specified postprocedural states; Translations: [Other specified postprocedural states] Onset: 04-15-2024 Episodic Septicemia (except in labor) (9 sources) Sepsis; Translations: [Sepsis, unspecified organism] Onset: 05-24-2023 05-24-2023 Episodic Skin and subcutaneous tissue infections (6 sources) Cellulitis; Translations: [Cellulitis, unspecified] Onset: 08-28-2023 04-17-2023 Episodic Unclassified (1 source) Supraventricular tachycardia, unspecified; Translations: [Supraventricular tachycardia, unspecified] Onset: 04-15-2024 Results Test Name Value Interpretation Reference Range Facility Office Visiton 10-21-2024 Follow-up visit [id number] Hua Ray 1965 Date Provider Department Center 10/21/2024 NEGRO OLMSTEAD Family History Problem Relation Age of Onset Stroke Mother Family Status - Relation Status Age at Mother Father Alive Level of Service:56579 [place] OFFICE/OUTPATIENT ESTABLISHED MOD MDM 30 MIN Reason for Visit and Comments: Atrial Fibrillation [80] Normal [facility] Office Visiton 04-15-2024 Follow-up visit [id number] Hua Ray 1965 Date Provider Department Center 04/15/2024 166NEGRO MERIDA Family History Problem Relation Age of Onset Stroke Mother Family Status - Relation Status Age at Mother Level of Service:68418 [place] OFFICE/OUTPATIENT ESTABLISHED MOD MDM 30 MIN Reason for Visit and Comments: Atrial Fibrillation [80] Normal [facility] Follow-Upon 02-26-2024 Follow-Up [id number] Hua Ray H 1965 Date Provider Department Center 02/26/2024 166NEGRO MERIDA Family History Problem Relation Age of Onset Stroke Mother Family Status - Relation Status Age at Mother Level of Service:74359 [place] OFFICE/OUTPATIENT ESTABLISHED MOD MDM 30 MIN Reason for Visit and Comments: Atrial Fibrillation [80] Normal [facility] Telephoneon 02-06-2024 Telephone [id number] Hua Ray 1965 Date Provider Department Center 02/06/2024 1987-YOVANI YEE [facility] Family History Problem Relation Age of Onset Stroke Mother Family Status - Relation Status Age at Mother Reason for Visit and Comments: week f/u post ablation [Other] [facility] Anesthesiaon 01-29-2024 Anesthesia [id number] Hua Ray H 1965 Date Provider Department Center 01/29/[id number], TAYL*[facility] Family History Problem Relation Age of Onset Stroke Mother Family Status - Relation Status Age at Mother Normal [facility] HPon 01-29-2024 [facility] Electrophysiology Consult Note Reason [...] fasciotomy 2003, hypertension He recently presented to [facility] for pneumonia, was found to be [...] been feeling okay he was seen by Nate BRADLEY on 07/01/2023 and was planned for a subsequent cardioversion following amiodarone load. He was scheduled for DCCV but did not have this done because he was admitted to [facility] for wound infection. Eliquis was stopped [...] on file Intimate Partner Violence: Unknown (06/28/2023) [place] Safety & Environment Fear of Current or [...] of e (more content not included)... Normal [facility] NURSNOTEon 01-29-2024 NURSNOTE Pt complaining that it feels like there is something in his right eye, nurse flushed the eye and placed cool compress on it. The eye was red and tearing up RN called anesthesia and they came to bedside to assess pt. Orders being placed for eye drops. Normal [facility] NURSNOTE Family at bedside RN reviewed discharge and gave copy. Normal [facility] POCT GLUCOSE METER UNSOLICIT ED RESULTSon 01-29-2024 Glucose [Mass/Vol] 103 mg/dL Normal 70-105 [facility] Comment on above: Order Comment: Waive d Testing in the ED is performed under the ED CLIA certificate #[id number]. Result Comment: ngro jennifer Performed By: #### L [id number] ####[facility] ([facility]AK[facility])[address] [place] [address] PROTIME-INRon 01-29-2024 INR IN PPP BY COAGULATION ASSAY 1.13 High 0.90-1.10 [facility] Comment on above: Result Comment: ACCC [...] CHEST 1995;108:231S-246S. Performed By: #### L [id number] ####[facility] ([facility])[address] [place] [address] PROTHROMBIN TIME (PT) IN PPP BY COAGULATION ASSAY 14.5 Seconds Normal 12.3-14.8 [facility] Comment on above: Performed By: #### L [id number] ####[facility] ([facility])[address] [place] [address] Prep for Procedureon 024 Prep for Procedure [id number] Hua Ray H 1965 [facility] Provider Department Center 01/29/20241986-YOVANI YEE [facility] Family History Problem Relation Age of Onset Stroke Mother Family Status - Relation Status Age at Mother Normal [facility] Office Visiton 01-14-2024 Follow-up visit [id number] Hua Ray 1965 [facility] Provider Department Center 01/14/2024 241-JANUSZ CAT [facility] Zainab [facility] Family History Problem Relation Age of Onset Stroke Mother Family Status - Relation Status Age at Mother Level of Service:47526 [place] OFFICE/OUTPATIENT ESTABLISHED HIGH MDM 40 MIN Normal [facility] Prep for Procedureon 024 Prep for Procedure [id number] Hua Ray H 1965 M Date Provider Department Center 12/11/20231986-YOVANI YEE [facility] Family History Problem Relation Age of Onset Stroke Mother Family Status - Relation Status Age at Mother Normal [facility] Office Visiton 12-03-2023 Follow-up visit [id number] Hua Ray 1965 M Date Provider Department Center 12/03/2023 NEGRO OLMSTEAD [facility] Family History Problem Relation Age of Onset Stroke Mother Family Status - Relation Status Age at Mother Level of Service:97393 [place] OFFICE/OUTPATIENT ESTABLISHED MOD MDM 30 MIN Reason for Visit and Comments: Atrial Fibrillation [80] Normal [facility] US venous duplex LE RTon US venous duplex LE RT [facility] [place] [address] Ultrasound Report Signed Patient: Tejas Ray MR#: [id number] 0 : 1965 Acct:[id number] Age/Sex: 58 / M ADM Date: 12/02/23 Loc: ER Room: Type: [facility] ER Attending Dr: Ordering Provider: [...] Jonathan Rodriguez MD12/02/2023 2:14 PM Dictation Location: [place] [address] Tech: Yohana Whitley Transcribed By: DARLING 12/02/23 141 Dictated By: Jonathan Rodriguez MD 12/02/231413 Signed By: 12/02/23 141 Normal [facility] Multiple labson 07-31-2023 [facility] Wound culture surgical deep includes gram stainon 07-31-2023 [facility] US venous duplex LE RTon US venous duplex LE RT [facility] Main [place] [address] [place] [address] Ultrasound Report Signed Patient: Tejas Ray MR#: [id number] 0 : 1965 Acct:[id number] Age/Sex: 58 / M ADM Date: 05/28/23 Loc: ER Room: Type: [facility] ER Attending Dr: Ordering Provider: [...] Kulwinder Ma M.D.05/29/2023 9:08 AM Dictation Location: [place] [address] Tech: Kendra Chaves Transcribed By: DARLING 05/29/23 0908 Dictated By: Kulwinder Ma MD 05/29/23 0907 Signed By: 05/29/23 0908 Normal [facility] Activated partial thrombopla stin time (aPTT) in platelet poor plasma by coagulation aOrdered By: Edwin Mckinney on 05-28-2023 aPTT Coag (PPP) [Time] 35.7 s 25.1-36.5 [facility] Comment on above: A hematocrit value g reater than 55% may lead to inaccurate results in coagulation testing. Patients having hematocrit values >55% require a special collection tube for coagulation studies. Please contact the laboratory at [phone] for redraw instructions. Alanine aminotransferase [En zymatic activity/volume] in Serum or PlasmaOrdered By: Edwin Mckinney on 05-28-2023 ALT [Catalytic activity/Vol] 29 U/L Normal 7-52 [facility] Comment on above: Performed By: #### P TT, HEPATIC, BMP, PT #### [place] [address] [place] Albumin [Mass/volume] in Ser um or Plasma by Bromocresol green (BCG) dye binding methoOrdered By: Edwin Mckinney on 05-28-2023 Albumin BCG dye [Mass/Vol] 4.3 g/dL 3.5-5.7 [facility] Alkaline phosphatase [Enzyma tic activity/volume] in Serum or PlasmaOrdered By: Edwin Mckinney on 05-28-2023 ALP [Catalytic activity/Vol] 73 U/L Normal 34-104 [facility] Comment on above: Performed By: #### P TT, HEPATIC, BMP, PT #### [facility] [address] [place] [address] [place] Aspartate aminotransferase [ Enzymatic activity/volume] in Serum or PlasmaOrdered By: Edwin Mckinney on 05-28-2023 AST [Catalytic activity/Vol] 18 U/L Normal 13-39 [facility] Comment on above: Performed By: #### P TT, HEPATIC, BMP, PT #### [address] Automated basophil %Ordered By: Edwin Mckinney on 05-28-2023 Basophils/100 WBC (Bld) 0.6 % Normal . [facility] Comment on above: Performed By: #### C BC #### [address] Automated basophil countOrde red By: Edwin Mckinney on 05-28-2023 Basophils (Bld) [#/Vol] 0.1 10*3/uL Normal 0.0-0.2 [facility] Comment on above: Result Comment: PERF ORMED BY: [place] [address] PATHOLOGIST COLOR STRAINING BAG WASHER ROBERTO OCAMPO M.D. Performed By: #### C BC #### [address] Automated blood monocyte cou ntOrdered By: Edwin Mckinney on 05-28-2023 Monocytes (Bld) [#/Vol] 1.1 10*3/uL High 0.0-0.8 [facility] Comment on above: Performed By: #### C BC #### [address] Automated eosinophil %Ordere d By: Edwin Mckinney on 05-28-2023 Eosinophils/100 WBC (Bld) 2.1 % Normal . [facility] Comment on above: Performed By: #### C BC #### [address] Automated eosinophil countOr dered By: Edwin Mckinney on 05-28-2023 Eosinophils (Bld) [#/Vol] 0.3 10*3/uL Normal 0.0-0.45 [facility] Comment on above: Performed By: #### C BC #### [address] Automated monocyte %Ordered By: Edwin Mckinney on 05-28-2023 Monocytes/100 WBC (Bld) 8.7 % Normal . [facility] Comment on above: Performed By: #### C BC #### [address] Automated neutrophil %Ordere d By: Edwinjian Mckinney on 05-28-2023 Neutrophils/100 WBC (Bld) 74.0 % Normal . [facility] Comment on above: Performed By: #### C BC #### [address] Basic Metabolic Panelon 05-07 Creatinine Clr Calc Pharmacy 73.58 Normal [facility] Comment on above: Result Comment: PERF ORMED BY: [place] [address] PATHOLOGIST [employer] STR[employer]ING BAG WASHER ROBERTO OCAMPO M.D. Performed By: #### P TT, HEPATIC, BMP, PT #### [address] GFR/1.73 sq M.predicted MDRD (S/P/Bld) [Vol rate/Area] 57.540 mL/min/{1.73_m2} Normal [facility] Comment on above: Performed By: #### P TT, HEPATIC, BMP, PT #### [address] Bilirubin.direct [Mass/volum e] in Serum or PlasmaOrdered By: Edwin Mckinney on 05-28-2023 Bilirubin.direct [Mass/Vol] 0.20 mg/dL 0.03-0.18 [facility] Bilirubin.total [Mass/volume ] in Serum or PlasmaOrdered By: Edwin Mckinney on 05-28-2023 Bilirubin [Mass/Vol] 1.0 mg/dL Normal 0.3-1.0 [facility] Comment on above: Performed By: #### P TT, HEPATIC, BMP, PT #### [facility] [address] [place] [address] [place] Calcium [Mass/volume] in Ser um or PlasmaOrdered By: Edwin Mckinney on 05-28-2023 Calcium [Mass/Vol] 9.2 mg/dL Normal 8.6-10.3 [facility] Comment on above: Performed By: #### P TT, HEPATIC, BMP, PT #### [address] Carbon dioxide, total [Moles /volume] in Serum or PlasmaOrdered By: Edwin Mckinney on 05-28-2023 CO2 [Moles/Vol] 30.9 mmol/L Normal 21.0-31.0 [facility] Comment on above: Performed By: #### P TT, HEPATIC, BMP, PT #### [facility] [address] [place] [address] [place] Chloride [Moles/volume] in S rafy or PlasmaOrdered By: Edwin Mckinney on 05-28-2023 Chloride [Moles/Vol] 102 mmol/L Normal 98-107 [facility] Comment on above: Performed By: #### P TT, HEPATIC, BMP, PT #### [place] [address] [place] Complete Blood Count Auto Di ffon 05-28-2023 Mean Corpuscular HGB Conc 33.5 g/dL Normal 32.5-35.6 [facility] Comment on above: Performed By: #### C BC #### [address] Monocytes/100 WBC (Bld) 21.69 % High 0.00-20.00 [facility] Comment on above: Result Comment: For adults in ED, MDW > 20.0 may be associated with a higher risk of sepsis during the first 12 hrs of hospital admission Performed By: #### C BC #### [facility] [address] NRBC% 0.1 /100{WBC} Normal 0-0.5 [facility] Comment on above: Performed By: #### C BC #### [address] Creatinine [Mass/volume] in Serum or PlasmaOrdered By: Edwin Mckinney on 05-28-2023 Creatinine [Mass/Vol] 1.40 mg/dL High 0.70-1.[address] [facility] Comment on above: Performed By: #### P TT, HEPATIC, BMP, PT #### [address] ECG 12 lead ECGon 05-28-2023 ECG 12 lead ECG [facility] Main [place] [address] [place] [address] Electrocardiograph Report Signed Patient: Tejas Ray MR#: [id number] 0 : 1965 Acct:[id number] Age/Sex: 58 / M ADM Date: 05/28/23 Loc: ER Room: Type: [facility] ER Attending Dr: Ordering [...] was found Confirmed by KENIA WILSON DO ([id number]) on 05/28/2023 3:02:52 PM Referred By: Electronically Signed By:KENIA WILSON DO Transcribed By: MUS Signed By Kenia Wilson DO 05/28 1503 Normal [facility] Erythrocyte distribution wid th [Ratio] by Automated countOrdered By: Edwin Mckinney on 05-28-2023 Erythrocyte distribution width (RBC) [Ratio] 14.0 % Normal 12.0-14.8 [facility] Comment on above: Performed By: #### C BC #### [facility] [address] [place] [address] Erythrocytes [#/volume] in B lood by Automated countOrdered By: Edwin Mckinney on 05-28-2023 RBC (Bld) [#/Vol] 4.32 10*6/uL Normal 3.90-5.60 [facility] Comment on above: Performed By: #### C BC #### [facility] [address] [place] [address] Glucose [Mass/volume] in Ser um or PlasmaOrdered By: Edwin Mckinney on 05-28-2023 Glucose [Mass/Vol] 97 mg/dL Normal 70-100 [facility] Comment on above: ADA recommended refe rence rangeRandom Glucose Reference Range is dependent on time and content of last meal. Glucose of more than 200 mg/dL in a nonstressed, ambulatory subject supports the diagnosis of Diabetes Mellitus. Result Comment: [place] om Glucose Reference Range is dependent on time and content of last meal. Glucose of more than 200 mg/dL in a nonstressed, ambulatory subject supports the diagnosis of Diabetes Mellitus. ADA recommended reference range Performed By: #### P TT, HEPATIC, BMP, PT #### [facility] [address] [place] [address] [place] Hematocrit [Volume Fraction] of Blood by Automated countOrdered By: Edwin Mckinney on 05-28-2023 Hematocrit (Bld) [Volume fraction] 42.1 % Normal 38.8-50.0 [facility] Comment on above: Performed By: #### C BC #### [address] Hemoglobin [Mass/volume] in BloodOrdered By: Edwin Mckinney on 05-28-2023 Hemoglobin (Bld) [Mass/Vol] 14.1 g/dL Normal 13.0-17.0 [facility] Comment on above: Performed By: #### C BC #### [facility] [address] Hepatic Panelon 05-28-2023 Albumin [Mass/Vol] 4.3 g/dL Normal 3.5-5.7 [facility] Comment on above: Performed By: #### P TT, HEPATIC, BMP, PT #### [address] Bilirubin,Indirect 0.8 mg/dL Normal [facility] Comment on above: Performed By: #### P TT, HEPATIC, BMP, PT #### [address] Bilirubin.indirect [Mass/Vol] 0.20 mg/dL High 0.03-0.18 [facility] Comment on above: Performed By: #### P TT, HEPATIC, BMP, PT #### [address] INR in Platelet poor plasma by Coagulation assayOrdered By: Edwin Mckinney on 05-28-2023 INR Coag (PPP) [Relative time] 1.4 {INR} Normal [facility] Comment on above: INR Therapeutic Rang [...] #### P TT, HEPATIC, BMP, PT #### [address] Leukocytes [#/volume] correc isaiah for nucleated erythrocytes in Blood by Automated counOrdered By: Edwin Mckinney on 05-28-2023 WBC corrected for nucl RBC Auto (Bld) [#/Vol] 12.5 10*3/uL 4.1-10.5 [facility] Leukocytes [#/volume] in Blo od by Automated countOrdered By: Edwin Mckinney on 05-28-2023 WBC (Bld) [#/Vol] 12.5 10*3/uL High 4.1-10.5 [facility] Comment on above: Performed By: #### C BC #### [address] Lymphocytes [#/volume] in Bl ood by Automated countOrdered By: Edwin Mckinney on 05-28-2023 Lymphocytes (Bld) [#/Vol] 1.8 10*3/uL Normal 1.00-4.8 [facility] Comment on above: Performed By: #### C BC #### [address] Lymphocytes/100 leukocytes i n Blood by Automated countOrdered By: Edwin Mckinney on 05-28-2023 Lymphocytes/100 WBC (Bld) 14.6 % Normal . [facility] Comment on above: Performed By: #### C BC #### [place] [address] [place] MCH [Entitic mass] by Automa isaiah countOrdered By: Edwin Mckinney on 05-28-2023 MCH (RBC) [Entitic mass] 32.6 pg Normal 27.5-35.2 [facility] Comment on above: Performed By: #### C BC #### [address] MCHC Auto (RBC) [Mass/Vol]Or dered By: Edwin Mckinney on 05-28-2023 MCHC (RBC) [Mass/Vol] 33.5 g/dL 32.5-35.[address] [facility] MCV [Entitic volume] by Auto mated countOrdered By: Edwin Mckinney on 05-28-2023 MCV (RBC) [Entitic vol] 97.3 fL Normal 83.5-101 [facility] Comment on above: Performed By: #### C BC #### [facility] [address] [place] [address] Monocyte distribution width [Entitic volume] in Blood by AutomatedOrdered By: Edwin Mckinney on 05-28-2023 Monocyte distribution width Auto (Bld) [Entitic vol] 21.69 % 0.00-20.00 [facility] Comment on above: For adults in ED, MD W > 20.0 may be associated with a higher risk of sepsis during the first 12 hrs of hospital admission Neutrophils [#/volume] in Bl ood by Automated countOrdered By: Edwin Mckinney on 05-28-2023 Neutrophils (Bld) [#/Vol] 9.2 10*3/uL High 1.8-7.7 [facility] Comment on above: Performed By: #### C BC #### [facility] [address] [place] [address] No Panel InformationOrdered By: Edwin Mckinney on 05-28-2023 Estimated GFR (CKD-EPI) 57.540 mL/Min [facility] Creatinine Clearance (Chem 73.58 [facility] Nucleated erythrocytes [Pres ence] in Blood by Automated countOrdered By: Edwin Mckinney on 05-28-2023 Nucleated RBC Auto Ql (Bld) 0.1 /100{WBC} 0-0.5 [facility] Partial Thromboplastin Timeo n 05-28-2023 aPTT Coag (Bld) [Time] 35.7 s Normal 25.1-36.5 [facility] Comment on above: Result Comment: A he matocrit value greater than 55% may lead to inaccurate results in coagulation testing. Patients having hematocrit values >55% require a special collection tube for coagulation studies. Please contact the laboratory at [phone] for redraw instructions. PERFORMED BY: [place] [address] PATHOLOGIST COLOR STRAINING BAG WASHER ROBERTO OCAMPO M.D. Performed By: #### P TT, HEPATIC, BMP, PT #### [address] Platelet mean volume [Entiti c volume] in Blood by Automated countOrdered By: Edwin Mckinney on 05-28-2023 Platelet mean volume (Bld) [Entitic vol] 9.3 fL Normal 6.6-10.1 [facility] Comment on above: Performed By: #### C BC #### [address] Platelets [#/volume] in Bloo d by Automated countOrdered By: Edwin Mckinney on 05-28-2023 Platelets (Bld) [#/Vol] 296 10*3/uL Normal 150-450 [facility] Comment on above: Performed By: #### C BC #### [address] Potassium [Moles/volume] in Serum or PlasmaOrdered By: Edwin Mckinney on 05-28-2023 Potassium [Moles/Vol] 4.1 mmol/L Normal 3.5-5.[address] [facility] Comment on above: Performed By: #### P TT, HEPATIC, BMP, PT #### [address] Protein [Mass/volume] in Ser um or PlasmaOrdered By: Edwin Mckinney on 05-28-2023 Protein [Mass/Vol] 8.5 g/dL Normal 6.4-8.9 [facility] Comment on above: Performed By: #### P TT, HEPATIC, BMP, PT #### [address] Prothrombin time (PT)Ordered By: Edwin Mckinney on 05-28-2023 PT Coag (PPP) [Time] 16.2 s High 9.0-12.9 [facility] Comment on above: A hematocrit value g reater than 55% may lead to inaccurate results in coagulation testing. Patients having hematocrit values >55% require a special collection tube for coagulation studies. Please contact the laboratory at [phone] for redraw instructions. Result Comment: A he matocrit value greater than 55% may lead to inaccurate results in coagulation testing. Patients having hematocrit values >55% require a special collection tube for coagulation studies. Please contact the laboratory at [phone] for redraw instructions. Performed By: #### P TT, HEPATIC, BMP, PT #### [address] Serum globulin measurement b y calculation (mass/volume)Ordered By: Edwin Mckinney on 05-28-2023 Globulin (S) [Mass/Vol] 4.2 g/dL [facility] Comment on above: Performed By: #### P TT, HEPATIC, BMP, PT #### [facility] [address] [place] [address] Serum or plasma albumin/glob ulin mass ratioOrdered By: Edwin Mckinney on 05-28-2023 Albumin/Globulin [Mass ratio] 1.0 {ratio} [facility] Comment on above: Performed By: #### P TT, HEPATIC, BMP, PT #### [address] Serum or plasma anion gap de terminationOrdered By: Edwin Mckinney on 05-28-2023 Anion gap [Moles/Vol] 10.2 mmol/L Normal 6.0-15.0 [facility] Comment on above: Performed By: #### P TT, HEPATIC, BMP, PT #### [address] Serum or plasma non-glucuron idated bilirubin measurement (mass/volume)Ordered By: Edwin Mckinney on 05-28-2023 Bilirubin.indirect [Mass/Vol] 0.8 mg/dL [facility] Sodium [Moles/volume] in Ser um or PlasmaOrdered By: Edwin Mckinney on 05-28-2023 Sodium [Moles/Vol] 139 mmol/L Normal 136-145 [facility] Comment on above: Performed By: #### P TT, HEPATIC, BMP, PT #### [facility] [address] Urea nitrogen [Mass/volume] in Serum or PlasmaOrdered By: Edwin Mckinney on 05-28-2023 Urea nitrogen [Mass/Vol] 24 mg/dL Normal 7-25 [facility] Comment on above: Performed By: #### P TT, HEPATIC, BMP, PT #### [facility] [address] [place] [id number] [place] XR chest 1V portableon 05-28 XR chest 1V portable [facility] [address] XRay Report Signed Patient: Tejas Ray MR#: [id number] 0 : 1965 Acct:[id number] Age/Sex: 58 / M ADM Date: 05/28/23 Loc: ER Room: Type: [facility] ER Attending Dr: Copies [...] Kulwinder Miller M.D.05/28/2023 2:32 PM Dictation Location: [place] [address] Transcribed By: [facility] 05/28/23 1432 Dictated By: Kulwinder Miller DO 05/28/23 1432 Signed By: 05/28/23 1432 Normal [facility] XR foot RT min 3V*on 024 XR foot RT min 3V* [facility] [place] [address] XRay Report Signed Patient: Tejas Ray MR#: [id number] 0 : 1965 Acct:[id number] Age/Sex: 58 / M ADM Date: 05/28/23 Loc: ER Room: Type: [facility] ER Attending Dr: Copies [...] Kulwinder Miller M.D.05/28/2023 2:56 PM Dictation Location: [place] [address] Transcribed By: [facility] 05/28/23 1456 Dictated By: Kulwinder Miller DO 05/28/23 1453 Signed By: 05/28/23 1456 Normal [facility] Basic Metabolic Panelon 05-07 Anion gap [Moles/Vol] 10.9 mmol/L Normal 6.0-15.0 [facility] Comment on above: Performed By: #### B PATRICIA, CBC #### [place] [address] [place] Calcium [Mass/Vol] 8.7 mg/dL Normal 8.6-10.3 [facility] Comment on above: Performed By: #### B MP, CBC #### [address] Chloride [Moles/Vol] 106 mmol/L Normal 98-107 [facility] Comment on above: Performed By: #### B MP, CBC #### [place] [address] [place] CO2 [Moles/Vol] 25.9 mmol/L Normal 21.0-31.0 [facility] Comment on above: Performed By: #### B MP, CBC #### [address] Creatinine [Mass/Vol] 1.40 mg/dL High 0.70-1.30 [facility] Comment on above: Performed By: #### B MP, CBC #### [address] Creatinine Clr Calc Pharmacy 76.19 Normal [facility] Comment on above: Result Comment: PERF ORMED BY: [place] [address] PATHOLOGIST [employer] STR[employer]ING B[employer] WASHER ROBERTO OCAMPO M.D. Performed By: #### B MP, CBC #### [address] GFR/1.73 sq M.predicted MDRD (S/P/Bld) [Vol rate/Area] 57.540 mL/min/{1.73_m2} Normal [facility] Comment on above: Performed By: #### B MP, CBC #### [address] Glucose [Mass/Vol] 95 mg/dL Normal 70-100 [facility] Comment on above: Result Comment: [place] Glucose Reference Range is dependent on time and content of last meal. Glucose of more than 200 mg/dL in a nonstressed, ambulatory subject supports the diagnosis of Diabetes Mellitus. ADA recommended reference range Performed By: #### B MP, CBC #### [address] Potassium [Moles/Vol] 3.8 mmol/L Normal 3.5-5.1 [facility] Comment on above: Performed By: #### B MP, CBC #### [address] Sodium [Moles/Vol] 139 mmol/L Normal 136-145 [facility] Comment on above: Performed By: #### B MP, CBC #### [address] Urea nitrogen [Mass/Vol] 32 mg/dL High 7-25 [facility] Comment on above: Performed By: #### B MP, CBC #### [address] Complete Blood Count Auto Di ffon 05-27-2023 Basophils (Bld) [#/Vol] 0.1 10*3/uL Normal 0.0-0.2 [facility] Comment on above: Result Comment: PERF ORMED BY: [place] [address] PATHOLOGIST [employer]ING [employer] WASHER ROBERTO OCAMPO M.D. Performed By: #### B MP, CBC #### [address] Basophils/100 WBC (Bld) 0.8 % Normal . [facility] Comment on above: Performed By: #### B MP, CBC #### [address] Eosinophils (Bld) [#/Vol] 0.1 10*3/uL Normal 0.0-0.45 [facility] Comment on above: Performed By: #### B MP, CBC #### [address] Eosinophils/100 WBC (Bld) 0.8 % Normal . [facility] Comment on above: Performed By: #### B MP, CBC #### [address] Erythrocyte distribution width (RBC) [Ratio] 14.3 % Normal 12.0-14.8 [facility] Comment on above: Performed By: #### B MP, CBC #### [address] Hematocrit (Bld) [Volume fraction] 39.1 % Normal 38.8-50.0 [facility] Comment on above: Performed By: #### B MP, CBC #### [address] Hemoglobin (Bld) [Mass/Vol] 13.1 g/dL Normal 13.0-17.0 [facility] Comment on above: Performed By: #### B MP, CBC #### [address] Lymphocytes (Bld) [#/Vol] 3.2 10*3/uL Normal 1.00-4.8 [facility] Comment on above: Performed By: #### B MP, CBC #### [address] Lymphocytes/100 WBC (Bld) 27.1 % Normal . [facility] Comment on above: Performed By: #### B MP, CBC #### [address] MCH (RBC) [Entitic mass] 32.8 pg Normal 27.5-35.2 [facility] Comment on above: Performed By: #### B MP, CBC #### [address] MCV (RBC) [Entitic vol] 97.9 fL Normal 83.5-101 [facility] Comment on above: Performed By: #### B MP, CBC #### [address] Mean Corpuscular HGB Conc 33.5 g/dL Normal 32.5-35.6 [facility] Comment on above: Performed By: #### B MP, CBC #### [address] Monocytes (Bld) [#/Vol] 1.0 10*3/uL High 0.0-0.8 [facility] Comment on above: Performed By: #### B MP, CBC #### [address] Monocytes/100 WBC (Bld) 8.8 % Normal . [facility] Comment on above: Performed By: #### B MP, CBC #### [address] Neutrophils (Bld) [#/Vol] 7.3 10*3/uL Normal 1.8-7.7 [facility] Comment on above: Performed By: #### B MP, CBC #### [address] Neutrophils/100 WBC (Bld) 62.5 % Normal . [facility] Comment on above: Performed By: #### B MP, CBC #### [address] NRBC% 0.1 /100{WBC} Normal 0-0.5 [facility] Comment on above: Performed By: #### B MP, CBC #### [address] Platelet mean volume (Bld) [Entitic vol] 9.2 fL Normal 6.6-10.1 [facility] Comment on above: Performed By: #### B MP, CBC #### [address] Platelets (Bld) [#/Vol] 235 10*3/uL Normal 150-450 [facility] Comment on above: Performed By: #### B MP, CBC #### [address] RBC (Bld) [#/Vol] 4.00 10*6/uL Normal 3.90-5.60 [facility] Comment on above: Performed By: #### B MP, CBC #### [address] WBC (Bld) [#/Vol] 11.7 10*3/uL High 4.1-10.5 [facility] Comment on above: Performed By: #### B MP, CBC #### [address] Basic Metabolic Panelon 05-07 Anion gap [Moles/Vol] 11.7 mmol/L Normal 6.0-15.0 [facility] Comment on above: Performed By: #### P TT, HEPATIC, BMP, PT #### [address] Calcium [Mass/Vol] 8.8 mg/dL Normal 8.6-10.3 [facility] Comment on above: Performed By: #### P TT, HEPATIC, BMP, PT #### [facility] [address] [place] [address] [place] Chloride [Moles/Vol] 108 mmol/L High 98-107 [facility] Comment on above: Performed By: #### P TT, HEPATIC, BMP, PT #### [place] [address] [place] CO2 [Moles/Vol] 24.4 mmol/L Normal 21.0-31.0 [facility] Comment on above: Performed By: #### P TT, HEPATIC, BMP, PT #### [address] Creatinine [Mass/Vol] 1.34 mg/dL High 0.70-1.30 [facility] Comment on above: Performed By: #### P TT, HEPATIC, BMP, PT #### [place] [address] [place] Creatinine Clr Calc Pharmacy 81.59 Normal [facility] Comment on above: Result Comment: PERF ORMED BY: [place] [address] PATHOLOGIST COL[employer] STRAINING BAG WASHER ROBERTO OCAMPO M.D. Performed By: #### P TT, HEPATIC, BMP, PT #### [address] GFR/1.73 sq M.predicted MDRD (S/P/Bld) [Vol rate/Area] mL/min/{1.73_m2} Normal [facility] Comment on above: Performed By: #### P TT, HEPATIC, BMP, PT #### [address] Glucose [Mass/Vol] 115 mg/dL High 70-100 [facility] Comment on above: Result Comment: [place] Glucose Reference Range is dependent on time and content of last meal. Glucose of more than 200 mg/dL in a nonstressed, ambulatory subject supports the diagnosis of Diabetes Mellitus. ADA recommended reference range Performed By: #### P TT, HEPATIC, BMP, PT #### [address] Potassium [Moles/Vol] 4.1 mmol/L Normal 3.5-5.1 [facility] Comment on above: Performed By: #### P TT, HEPATIC, BMP, PT #### [address] Sodium [Moles/Vol] 140 mmol/L Normal 136-145 [facility] Comment on above: Performed By: #### P TT, HEPATIC, BMP, PT #### [address] Urea nitrogen [Mass/Vol] 33 mg/dL High 7-25 [facility] Comment on above: Performed By: #### P TT, HEPATIC, BMP, PT #### [address] Blood Cultureon 05-26-2023 Bacteria identified Cx Nom (Bld) NO GROWTH 5 DAYS PERFORMED BY: [place] [address] PATHOLOGIST [employer] STRAINING [employer] WASHER ROBERTO OCAMPO M.D. Normal [facility] Comment on above: Performed By: #### C UBLD #### [address] Complete Blood Count Auto Di ffon 05-26-2023 Basophils (Bld) [#/Vol] 0.0 10*3/uL Normal 0.0-0.2 [facility] Comment on above: Result Comment: PERF ORMED BY: [place] [address] PATHOLOGIST COLOR STRAINING BAG WASHER ROBERTO OCAMPO M.D. Performed By: #### P TT, HEPATIC, BMP, PT #### [address] Basophils/100 WBC (Bld) 0.1 % Normal . [facility] Comment on above: Performed By: #### P TT, HEPATIC, BMP, PT #### [address] Eosinophils (Bld) [#/Vol] 0.0 10*3/uL Normal 0.0-0.45 [facility] Comment on above: Performed By: #### P TT, HEPATIC, BMP, PT #### [address] Eosinophils/100 WBC (Bld) 0.0 % Normal . [facility] Comment on above: Performed By: #### P TT, HEPATIC, BMP, PT #### [address] Erythrocyte distribution width (RBC) [Ratio] 14.3 % Normal 12.0-14.8 [facility] Comment on above: Performed By: #### P TT, HEPATIC, BMP, PT #### [address] Hematocrit (Bld) [Volume fraction] 36.9 % Low 38.8-50.0 [facility] Comment on above: Performed By: #### P TT, HEPATIC, BMP, PT #### [address] Hemoglobin (Bld) [Mass/Vol] 12.1 g/dL Low 13.0-17.0 [facility] Comment on above: Performed By: #### P TT, HEPATIC, BMP, PT #### [address] Lymphocytes (Bld) [#/Vol] 2.0 10*3/uL Normal 1.00-4.8 [facility] Comment on above: Performed By: #### P TT, HEPATIC, BMP, PT #### [address] Lymphocytes/100 WBC (Bld) 11.4 % Normal . [facility] Comment on above: Performed By: #### P TT, HEPATIC, BMP, PT #### [address] MCH (RBC) [Entitic mass] 32.2 pg Normal 27.5-35.2 [facility] Comment on above: Performed By: #### P TT, HEPATIC, BMP, PT #### [address] MCV (RBC) [Entitic vol] 98.1 fL Normal 83.5-101 [facility] Comment on above: Performed By: #### P TT, HEPATIC, BMP, PT #### [address] Mean Corpuscular HGB Conc 32.9 g/dL Normal 32.5-35.6 [facility] Comment on above: Performed By: #### P TT, HEPATIC, BMP, PT #### [address] Monocytes (Bld) [#/Vol] 1.4 10*3/uL High 0.0-0.8 [facility] Comment on above: Performed By: #### P TT, HEPATIC, BMP, PT #### [address] Monocytes/100 WBC (Bld) 7.9 % Normal . [facility] Comment on above: Performed By: #### P TT, HEPATIC, BMP, PT #### [address] Neutrophils (Bld) [#/Vol] 14.0 10*3/uL High 1.8-7.7 [facility] Comment on above: Performed By: #### P TT, HEPATIC, BMP, PT #### [address] Neutrophils/100 WBC (Bld) 80.6 % Normal . [facility] Comment on above: Performed By: #### P TT, HEPATIC, BMP, PT #### [address] NRBC% 0.1 /100{WBC} Normal 0-0.5 [facility] Comment on above: Performed By: #### P TT, HEPATIC, BMP, PT #### [place] [address] Platelet mean volume (Bld) [Entitic vol] 9.4 fL Normal 6.6-10.1 [facility] Comment on above: Performed By: #### P TT, HEPATIC, BMP, PT #### [address] Platelets (Bld) [#/Vol] 233 10*3/uL Normal 150-450 [facility] Comment on above: Performed By: #### P TT, HEPATIC, BMP, PT #### [address] RBC (Bld) [#/Vol] 3.77 10*6/uL Low 3.90-5.60 [facility] Comment on above: Performed By: #### P TT, HEPATIC, BMP, PT #### [address] WBC (Bld) [#/Vol] 17.3 10*3/uL High 4.1-10.5 [facility] Comment on above: Performed By: #### P TT, HEPATIC, BMP, PT #### [address] Basic Metabolic Panelon 05-07 Anion gap [Moles/Vol] 12.1 mmol/L Normal 6.0-15.0 [facility] Comment on above: Performed By: #### B MP, CBC #### [address] Calcium [Mass/Vol] 8.6 mg/dL Normal 8.6-10.3 [facility] Comment on above: Performed By: #### B MP, CBC #### [place] [address] [place] Chloride [Moles/Vol] 107 mmol/L Normal 98-107 [facility] Comment on above: Performed By: #### B MP, CBC #### [address] CO2 [Moles/Vol] 21.6 mmol/L Normal 21.0-31.0 [facility] Comment on above: Performed By: #### B MP, CBC #### [address] Creatinine [Mass/Vol] 1.29 mg/dL Normal 0.70-1.30 [facility] Comment on above: Performed By: #### B MP, CBC #### [place] [address] [place] Creatinine Clr Calc Pharmacy 84.75 Normal [facility] Comment on above: Performed By: #### B MP, CBC #### [place] [address] [place] GFR/1.73 sq M.predicted MDRD (S/P/Bld) [Vol rate/Area] mL/min/{1.73_m2} Normal [facility] Comment on above: Performed By: #### B MP, CBC #### [address] Glucose [Mass/Vol] 194 mg/dL High 70-100 [facility] Comment on above: Result Comment: [facility] Glucose Reference Range is dependent on time and content of last meal. Glucose of more than 200 mg/dL in a nonstressed, ambulatory subject supports the diagnosis of Diabetes Mellitus. ADA recommended reference range Performed By: #### B MP, CBC #### [address] Potassium [Moles/Vol] 3.7 mmol/L Normal 3.5-5.1 [facility] Comment on above: Performed By: #### B MP, CBC #### [place] [address] [place] Sodium [Moles/Vol] 137 mmol/L Normal 136-145 [facility] Comment on above: Performed By: #### B MP, CBC #### [address] Urea nitrogen [Mass/Vol] 27 mg/dL High 7-25 [facility] Comment on above: Performed By: #### B MP, CBC #### [address] Complete Blood Count Auto Di ffon 05-25-2023 Basophils (Bld) [#/Vol] 0.0 10*3/uL Normal 0.0-0.2 [facility] Comment on above: Result Comment: PERF ORMED BY: [place] [address] PATHOLOGIST [employer]ING B[employer] WASHER ROBERTO OCAMPO M.D. Performed By: #### B MP, CBC #### [address] Basophils/100 WBC (Bld) 0.2 % Normal . [facility] Comment on above: Performed By: #### B MP, CBC #### [address] Eosinophils (Bld) [#/Vol] 0.0 10*3/uL Normal 0.0-0.45 [facility] Comment on above: Performed By: #### B MP, CBC #### [address] Eosinophils/100 WBC (Bld) 0.0 % Normal . [facility] Comment on above: Performed By: #### B MP, CBC #### [address] Erythrocyte distribution width (RBC) [Ratio] 14.3 % Normal 12.0-14.8 [facility] Comment on above: Performed By: #### B MP, CBC #### [address] Hematocrit (Bld) [Volume fraction] 37.6 % Low 38.8-50.0 [facility] Comment on above: Performed By: #### B MP, CBC #### [address] Hemoglobin (Bld) [Mass/Vol] 12.7 g/dL Low 13.0-17.0 [facility] Comment on above: Performed By: #### B MP, CBC #### [address] Lymphocytes (Bld) [#/Vol] 0.9 10*3/uL Low 1.00-4.8 [facility] Comment on above: Performed By: #### B MP, CBC #### [address] Lymphocytes/100 WBC (Bld) 5.4 % Normal . [facility] Comment on above: Performed By: #### B MP, CBC #### [address] MCH (RBC) [Entitic mass] 33.1 pg Normal 27.5-35.2 [facility] Comment on above: Performed By: #### B MP, CBC #### [address] MCV (RBC) [Entitic vol] 97.6 fL Normal 83.5-101 [facility] Comment on above: Performed By: #### B MP, CBC #### [address] Mean Corpuscular HGB Conc 33.9 g/dL Normal 32.5-35.6 [facility] Comment on above: Performed By: #### B MP, CBC #### [address] Monocytes (Bld) [#/Vol] 0.6 10*3/uL Normal 0.0-0.8 [facility] Comment on above: Performed By: #### B MP, CBC #### [address] Monocytes/100 WBC (Bld) 3.6 % Normal . [facility] Comment on above: Performed By: #### B MP, CBC #### [address] Neutrophils (Bld) [#/Vol] 15.9 10*3/uL High 1.8-7.7 [facility] Comment on above: Performed By: #### B MP, CBC #### [address] Neutrophils/100 WBC (Bld) 90.8 % Normal . [facility] Comment on above: Performed By: #### B MP, CBC #### [address] NRBC% 0.0 /100{WBC} Normal 0-0.5 [facility] Comment on above: Performed By: #### B MP, CBC #### [address] Platelet mean volume (Bld) [Entitic vol] 9.3 fL Normal 6.6-10.1 [facility] Comment on above: Performed By: #### B MP, CBC #### [address] Platelets (Bld) [#/Vol] 207 10*3/uL Normal 150-450 [facility] Comment on above: Performed By: #### B MP, CBC #### [address] RBC (Bld) [#/Vol] 3.85 10*6/uL Low 3.90-5.60 [facility] Comment on above: Performed By: #### B MP, CBC #### [address] WBC (Bld) [#/Vol] 17.5 10*3/uL High 4.1-10.5 [facility] Comment on above: Performed By: #### B MP, CBC #### [address] Creatine Kinaseon 05-25-2023 CK [Catalytic activity/Vol] 198 U/L Normal 30-223 [facility] Comment on above: Performed By: #### B MP, CBC #### [address] ECG 12 lead ECGon 05-25-2023 ECG 12 lead ECG [facility] [place] [address] Electrocardiograph Report Signed Patient: Tejas Ray MR#: [id number] 0 : 1965 Acct:[id number] Age/Sex: 58 / M ADM Date: 05/24/23 Loc: Room: [address] [place] [address] Type: ADM IN Attending Dr: Arturo Dolan [...] Paz MD 0 05/25/23 1440 Normal [facility] [facility] echo transthoracicon [facility] echo transthoracic [facility] [place] [address] Echocardiogram Signed Patient: Tejas Ray MR#: [id number] 0 : 1965 Acct:[id number] Age/Sex: 58 / M ADM Date: 05/24/23 Loc: Room: [address] [place] [address] Type: ADM IN Attending Dr: Arturo Dolan DO Ordering Provider: Arturo Dolan DO Date of Service: 05/24/23 [facility] echo transthoracic: new A-Fib [...] Linh Paz MD 05/25/23 1150 Normal [facility] Magnesiumon 05-25-2023 Magnesium [Mass/Vol] 1.9 mg/dL Normal 1.9-2.7 [facility] Comment on above: Result Comment: PERF ORMED BY: [place] [address] PATHOLOGIST COLOR STRAINING BAG WASHER ROBERTO OCAMPO M.D. Performed By: #### B MP, CBC #### [address] Troponin I High Sensitivityo n 05-25-2023 Troponin I High Sensitivity 7.0 pg/mL Normal 0.0-20.0 [facility] Comment on above: Result Comment: PERF ORMED BY: [place] [address] PATHOLOGIST COLOR STRAINING BAG WASHER ROBERTO OCAMPO M.D. Performed By: #### B MP, CBC #### [address] A1C with Estimated Average G luon 05-24-2023 Glucose [Mass/Vol] 131 mg/dL Normal [facility] Comment on above: Result Comment: PERF ORMED BY: [place] [address] PATHOLOGIST COLOR STRAINING BAG WASHER ROBERTO OCAMPO M.D. Performed By: #### P TT, HEPATIC, BMP, PT #### [address] HbA1c (Bld) [Mass fraction] 6.2 % High 4.3-5.6 [facility] Comment on above: Result Comment: Incr eased risk for diabetes: 5.7 - 6.4 diabetes: >6.4 glycemic control for adults with diabetes: <7.0 Performed By: #### P TT, HEPATIC, BMP, PT #### [place] [address] [place] Activated partial thrombopla stin time (aPTT) in platelet poor plasma by coagulation aOrdered By: Ria Talamantes on 05-24-2023 aPTT Coag (PPP) [Time] 27.5 s 25.1-36.5 [facility] Comment on above: A hematocrit value g reater than 55% may lead to inaccurate results in coagulation testing. Patients having hematocrit values >55% require a special collection tube for coagulation studies. Please contact the laboratory at [phone] for redraw instructions. Aerobic Cultureon 05-24-2023 Aerobic Culture Result Tab Codes Moderate Normal Respiratory [place] 2 Days Gram Stain Result 1+ Gram Positive Cocci in Clusters 1+ Gram Negative Bacilli 1+ White Blood Cells 1+ Epithelial Cells * This is a corrected result. * A prior result that was reported as final has been changed. PERFORMED BY: [place] [address] PATHOLOGIST COLOR STRAINING BAG WASHER ROBERTO OCAMPO M.D. Normal [facility] Comment on above: Performed By: #### P TT, HEPATIC, BMP, PT #### [facility] [address] [place] [address] Automated basophil %Ordered By: Ria Talamantes on 05-24-2023 Basophils/100 WBC (Bld) 0.5 % Normal . [facility] Comment on above: Performed By: #### B MP, CBC #### [facility] [address] [place] [address] Automated basophil countOrde red By: Ria Talamantes on 05-24-2023 Basophils (Bld) [#/Vol] 0.1 10*3/uL Normal 0.0-0.2 [facility] Comment on above: Result Comment: PERF ORMED BY: [address] [place] [address] PATHOLOGIST COLOR STRAINING BAG WASHER ROBERTO OCAMPO M.D. Performed By: #### B MP, CBC #### [address] Automated blood monocyte cou ntOrdered By: Ria Talamantes on 05-24-2023 Monocytes (Bld) [#/Vol] 0.9 10*3/uL High 0.0-0.8 [facility] Comment on above: Performed By: #### B MP, CBC #### [address] Automated eosinophil %Ordere d By: Ria Charlesrosemarie on 05-24-2023 Eosinophils/100 WBC (Bld) 0.9 % Normal . [facility] Comment on above: Performed By: #### B MP, CBC #### [address] Automated eosinophil countOr dered By: Ria Charlesrosemarie on 05-24-2023 Eosinophils (Bld) [#/Vol] 0.1 10*3/uL Normal 0.0-0.45 [facility] Comment on above: Performed By: #### B MP, CBC #### [address] Automated erythrocytes count in urine sediment (number/area)Ordered By: Ria Talamantes on 05-24-2023 RBC Auto (Urine sed) [#/Area] None seen [HPF] 0-4 [facility] Automated leukocytes count i n urine sediment (number/area)Ordered By: Ria Talamantes on 05-24-2023 WBC Auto (Urine sed) [#/Area] None seen [HPF] 0-4 [facility] Automated monocyte %Ordered By: Ria Charlesrosemarie on 05-24-2023 Monocytes/100 WBC (Bld) 5.7 % Normal . [facility] Comment on above: Performed By: #### B MP, CBC #### [address] Automated neutrophil %Ordere d By: Ria Charlesrosemarie on 05-24-2023 Neutrophils/100 WBC (Bld) 86.6 % Normal . [facility] Comment on above: Performed By: #### B MP, CBC #### [address] Automated urine color determ inationOrdered By: Ria Talamantes on 05-24-2023 Color (U) Yellow Normal Yellow [facility] Comment on above: Order Comment: Name Collection Type:: Clean-Voided Midstream Performed By: #### P TT, HEPATIC, BMP, PT #### [address] BNP ser/plasOrdered By: Cuca Talamantes on 05-24-2023 Natriuretic peptide B (Bld) [Mass/Vol] 221.0 pg/mL High 5-100 [facility] Comment on above: Result Comment: PERF ORMED BY: [place] [address] PATHOLOGIST COL[employer] STRAINING BAG WASHER ROBERTO OCAMPO M.D. Performed By: #### B MP, CBC #### [address] Basic Metabolic Panelon 05-06 Creatinine Clr Calc Pharmacy 79.52 Normal [facility] Comment on above: Result Comment: PERF ORMED BY: [place] [address] PATHOLOGIST [employer] STRAINING BAG WASHER ROBERTO OCAMPO M.D. Performed By: #### B MP, CBC #### [address] GFR/1.73 sq M.predicted MDRD (S/P/Bld) [Vol rate/Area] 58.542 mL/min/{1.73_m2} Normal [facility] Comment on above: Performed By: #### B MP, CBC #### [address] Bilirubin Test strip Ql (U)O rdered By: Ria Talamantes on 05-24-2023 Bilirubin Ql (U) Negative Negative [facility] Blood Cultureon 05-24-2023 Bacteria identified Cx Nom (Bld) NO GROWTH 5 DAYS PERFORMED BY: [address] [place] [address] PATHOLOGIST COLOR STRAINING BAG WASHER ROBERTO Rajan [facility] Comment on above: Performed By: #### P TT, HEPATIC, BMP, PT #### [facility] [address] [place] [address] [facility] Bacteria identified Cx Nom (Bld) Gram Stain [...] culture Not detected Group A (Streptococcus pyogenes) [id number] Not detected Group B Strep (Streptococcus agalactiae) [...] at (more content not included)... Normal [facility] Comment on above: Performed By: #### P TT, HEPATIC, BMP, PT #### [facility] [address] COVID CepheidOrdered By: Greg Talamantes on 05-24-2023 SARS-CoV-2 (COVID-19) Ab IA Ql Negative Negative [facility] Comment on above: This is a duplicate Cepheid Xpert Xpress CoV-2/Flu/RSV Plus RNA by RT-PCR result to be used for statistical tracking purpose only. SARS-CoV-2 (COVID-19) RNA PRITESH+probe Ql (Unsp spec) [facility] COVID-19 / Flu A/B / RSV [...] or Cepheid Disclaimer revoked sooner. PERFORMED BY: [place] [address] PATHOLOGIST COLOR STRAINING BAG WASHER ROBERTO OCAMPO M.D. Normal [facility] Comment on above: Performed By: #### P TT, HEPATIC, BMP, PT #### [address] angio chest PE protocolon 05-24-2023 CT angio chest PE protocol [facility] [address] CT Scan Report Signed Patient: Tejas Ray MR#: [id number] 0 : 1965 Acct:[id number] Age/Sex: 58 / M ADM Date: 05/24/23 Loc: ER Room: Type: [facility] ER Attending Dr: Copies [...] Kulwinder Miller M.D.05/24/2023 5:17 PM Dictation Location: [place] [address] Transcribed By: [facility] 05/24/231716 Dictated By: Kulwinder Miller DO 05/24/231711 Signed By: 05/24/231716 Normal [facility] Calcium [Mass/volume] in Ser um or PlasmaOrdered By: Ria Talamantes on 05-24-2023 Calcium [Mass/Vol] 9.2 mg/dL Normal 8.6-10.3 [facility] Comment on above: Performed By: #### B MP, CBC #### [facility] [address] Carbon dioxide, total [Moles /volume] in Serum or PlasmaOrdered By: Ria Talamantes on 05-24-2023 CO2 [Moles/Vol] 22.1 mmol/L Normal 21.0-31.0 [facility] Comment on above: Performed By: #### B MP, CBC #### [facility] [address] Cepheid COVID PCR Negativeon 05-24-2023 SARS-CoV-2 (COVID-19) RNA PRITESH+probe Ql (Unsp spec) Negative Normal Negative [facility] Comment on above: Result Comment: This is a duplicate Cepheid Xpert Xpress CoV-2/Flu/RSV Plus RNA by RT-PCR result to be used for statistical tracking purpose only. PERFORMED BY: [place] [address] PATHOLOGIST COLOR STRAINING BAG WASHER ROBERTO OCAMPO M.D. Performed By: #### P TT, HEPATIC, BMP, PT #### [place] [address] [place] Chloride [Moles/volume] in S rafy or PlasmaOrdered By: Ria Talamantes on 05-24-2023 Chloride [Moles/Vol] 105 mmol/L Normal 98-107 [facility] Comment on above: Performed By: #### B MP, CBC #### [address] Complete Blood Count Auto Di ffon 05-24-2023 Mean Corpuscular HGB Conc 33.8 g/dL Normal 32.5-35.6 [facility] Comment on above: Performed By: #### B MP, CBC #### [place] [address] [place] Monocytes/100 WBC (Bld) 20.36 % High 0.00-20.00 [facility] Comment on above: Result Comment: For adults in ED, MDW > 20.0 may be associated with a higher risk of sepsis during the first 12 hrs of hospital admission Performed By: #### B MP, CBC #### [address] NRBC% 0.0 /100{WBC} Normal 0-0.5 [facility] Comment on above: Performed By: #### B MP, CBC #### [place] [address] [place] Creatine Kinaseon 05-24-2023 CK [Catalytic activity/Vol] 251 U/L High 30-223 [facility] Comment on above: Performed By: #### P TT, HEPATIC, BMP, PT #### [place] [address] [place] Creatinine [Mass/volume] in Serum or PlasmaOrdered By: Ria Talamantes on 05-24-2023 Creatinine [Mass/Vol] 1.38 mg/dL High 0.70-1.[address] [facility] Comment on above: Performed By: #### B MP, CBC #### [address] D-Dimer High Sensitivityon 0 05-24-2023 D-Dimer High Sensitivity 296 ng/mL High 0-243 [facility] Comment on above: Result [...] coagulation studies. Please contact the laboratory at [phone] for redraw instructions. PERFORMED BY: [place] [address] PATHOLOGIST COLOR STRAINING BAG WASHER ROBERTO OCAMPO M.D. Performed By: #### P TT, HEPATIC, BMP, PT #### [address] Dipstick and Microscopicon 0 05-24-2023 Appearance (U) Clear Normal Clear [facility] Comment on above: Order Comment: Name Collection Type:: Clean-Voided Midstream Performed By: #### P TT, HEPATIC, BMP, PT #### [address] Bacteria,Urine None Seen Normal None Seen [facility] Comment on above: Order Comment: Name Collection Type:: Clean-Voided Midstream Performed By: #### P TT, HEPATIC, BMP, PT #### [address] Bilirubin,Urine Negative Normal Negative [facility] Comment on above: Order Comment: Name Collection Type:: Clean-Voided Midstream Performed By: #### P TT, HEPATIC, BMP, PT #### [facility] [address] [place] [id number] [place] Glucose Ql (U) Normal Normal Normal [facility] Comment on above: Order Comment: Name Collection Type:: Clean-Voided Midstream Performed By: #### P TT, HEPATIC, BMP, PT #### [facility] [address] [place] [id number] [place] Hyaline Casts,Urine 0-8 Normal 0-8 [facility] Comment on above: Order Comment: Name Collection Type:: Clean-Voided Midstream Result Comment: PERF ORMED BY: [place] [address] PATHOLOGIST COL[employer] STRAINING BAG WASHER ROBERTO OCAMPO M.D. Performed By: #### P TT, HEPATIC, BMP, PT #### [place] [id number] [place] Ketones Ql (U) Negative Normal Negative [facility] Comment on above: Order Comment: Name Collection Type:: Clean-Voided Midstream Performed By: #### P TT, HEPATIC, BMP, PT #### [facility] [address] [place] [id number] [place] Leukocyte esterase Test strip Ql (U) Negative Normal Negative [facility] Comment on above: Order Comment: Name Collection Type:: Clean-Voided Midstream Performed By: #### P TT, HEPATIC, BMP, PT #### [place] [address] [place] Nitrite,Urine Negative Normal Negative [facility] Comment on above: Order Comment: Name Collection Type:: Clean-Voided Midstream Performed By: #### P TT, HEPATIC, BMP, PT #### [facility] [address] [place] [id number] [place] Occult Blood,Urine Negative Normal Negative [facility] Comment on above: Order Comment: Name Collection Type:: Clean-Voided Midstream Result Comment: PERF ORMED BY: [place] [id number] PATHOLOGIST [employer] STRAINING BAG WASHER ROBERTO OCAMPO M.D. Performed By: #### P TT, HEPATIC, BMP, PT #### [address] RBC,Urine None Seen Normal 0-4 [facility] Comment on above: Order Comment: Name Collection Type:: Clean-Voided Midstream Performed By: #### P TT, HEPATIC, BMP, PT #### [address] Specificy [place],Urine 1.021 Normal 1.001-1.03 0 [facility] Comment on above: Order Comment: Name Collection Type:: Clean-Voided Midstream Performed By: #### P TT, HEPATIC, BMP, PT #### [address] Squamous Epithelial Cell,Urine None Seen Normal 0-2 [facility] Comment on above: Order Comment: Name Collection Type:: Clean-Voided Midstream Performed By: #### P TT, HEPATIC, BMP, PT #### [address] Urobilinogen,Urine Normal Normal Normal [facility] Comment on above: Order Comment: Name Collection Type:: Clean-Voided Midstream Performed By: #### P TT, HEPATIC, BMP, PT #### [address] WBC,Urine None Seen Normal 0-4 [facility] Comment on above: Order Comment: Name Collection Type:: Clean-Voided Midstream Performed By: #### P TT, HEPATIC, BMP, PT #### [address] ECG 12 lead ECGon 05-24-2023 ECG 12 lead ECG [facility] [place] [address] Electrocardiograph Report Signed Patient: Tejas Ray MR#: [id number] 0 : 1965 Acct:[id number] Age/Sex: 58 / M ADM Date: 05/24/23 Loc: Room: [address] [place] [address] Type: ADM IN Attending Dr: Arturo Dolan [...] Nino Garrido MD 05/24/23 193 Normal [facility] Erythrocyte distribution wid th [Ratio] by Automated countOrdered By: Ria Talamantes on 05-24-2023 Erythrocyte distribution width (RBC) [Ratio] 13.9 % Normal 12.0-14.8 [facility] Comment on above: Performed By: #### B MP, CBC #### [facility] [address] Erythrocytes [#/volume] in B lood by Automated countOrdered By: Ria Talamantes on 05-24-2023 RBC (Bld) [#/Vol] 4.47 10*6/uL Normal 3.90-5.60 [facility] Comment on above: Performed By: #### B MP, CBC #### [facility] [address] Fibrin D-dimer [Presence] in Platelet poor plasma by Latex agglutinationOrdered By: Ria Talamantes on 05-24-2023 Fibrin D-dimer LA Ql (PPP) 296 ng/mL 0-243 [facility] Comment on above: The reference range [...] coagulation studies. Please contact the laboratory at [phone] for redraw instructions. Free T4 (Free Thyroxine)on 0 05-24-2023 Free T4 [Mass/Vol] 0.88 ng/dL Normal 0.61-1.12 [facility] Comment on above: Performed By: #### P TT, HEPATIC, BMP, PT #### [facility] [address] [place] [id number] [place] Glucose [Mass/volume] in Ser um or PlasmaOrdered By: Ria Talamantes on 05-24-2023 Glucose [Mass/Vol] 110 mg/dL High 70-100 [facility] Comment on above: ADA recommended refe rence rangeRandom Glucose Reference Range is dependent on time and content of last meal. Glucose of more than 200 mg/dL in a nonstressed, ambulatory subject supports the diagnosis of Diabetes Mellitus. Result Comment: [place] om Glucose Reference Range is dependent on time and content of last meal. Glucose of more than 200 mg/dL in a nonstressed, ambulatory subject supports the diagnosis of Diabetes Mellitus. ADA recommended reference range Performed By: #### B MP, CBC #### [facility] [address] [place] [address] [place] Gram Stainon 05-24-2023 Microscopic observation Gram stain Nom (Unsp spec) Gram Stain Result 1+ Gram Positive Cocci in Clusters 1+ Gram Negative Bacilli 1+ White Blood Cells 1+ Epithelial Cells * This is a corrected result. * A prior result that was reported as final has been changed. PERFORMED BY: [place] [address] PATHOLOGIST COLOR STRAINING BAG WASHER ROBERTO OCAMPO M.D. Normal [facility] Comment on above: Performed By: #### P TT, HEPATIC, BMP, PT #### [address] Hematocrit [Volume Fraction] of Blood by Automated countOrdered By: Ria Talamantes on 05-24-2023 Hematocrit (Bld) [Volume fraction] 43.2 % Normal 38.8-50.0 [facility] Comment on above: Performed By: #### B MP, CBC #### [address] Hemoglobin [Mass/volume] in BloodOrdered By: Ria Talamantes on 05-24-2023 Hemoglobin (Bld) [Mass/Vol] 14.6 g/dL Normal 13.0-17.0 [facility] Comment on above: Performed By: #### B MP, CBC #### [address] INR in Platelet poor plasma by Coagulation assayOrdered By: Ria Talamantes on 05-24-2023 INR Coag (PPP) [Relative time] 1.1 {INR} Normal [facility] Comment on above: INR Therapeutic Rang [...] #### P TT, HEPATIC, BMP, PT #### [facility] [address] Ketones Auto test strip (U) [Mass/Vol]Ordered By: Ria Talamantes on 05-24-2023 Ketones (U) [Mass/Vol] Negative Negative [facility] Vitaliy Thyroxine (T4)on T4 [Mass/Vol] 6.9 ug/dL Normal 4.5-12.0 [facility] Comment on above: Result Comment: Perf ormed at: - [facility] [address] [id number] Reimbursement Consultant: Edwin Nazario PhD, Phone: [phone] PERFORMED BY: [place] [address] PATHOLOGIST COLOR STRAINING BAG WASHER ROBERTO OCAMPO M.D. Performed By: #### L C T4 #### [facility] , Laboratory - UrinalysisOrder ed By: Ria Talamantes on 05-24-2023 Hyaline casts LM Ql (Urine sed) 0-8 [LPF] 0-8 [facility] Lactate [Moles/volume] in Se rum or PlasmaOrdered By: Ria Talamantes on 05-24-2023 Lactate [Moles/Vol] 1.8 mmol/L Normal 0.5-2.2 [facility] Comment on above: Result Comment: PERF ORMED BY: [place] [address] PATHOLOGIST COLOR STRAINING BAG WASHER ROBERTO OCAMPO M.D. Performed By: #### P TT, HEPATIC, BMP, PT #### [facility] [address] [place] [address] Leukocytes [#/volume] correc isaiah for nucleated erythrocytes in Blood by Automated counOrdered By: Ria Talamantes on 05-24-2023 WBC corrected for nucl RBC Auto (Bld) [#/Vol] 15.3 10*3/uL 4.1-10.5 [facility] Leukocytes [#/volume] in Blo od by Automated countOrdered By: Ria Talamantes on 05-24-2023 WBC (Bld) [#/Vol] 15.3 10*3/uL High 4.1-10.5 [facility] Comment on above: Performed By: #### B MP, CBC #### [facility] [address] [place] [address] Lymphocytes [#/volume] in Bl ood by Automated countOrdered By: Ria Talamantes on 05-24-2023 Lymphocytes (Bld) [#/Vol] 1.0 10*3/uL Normal 1.00-4.8 [facility] Comment on above: Performed By: #### B MP, CBC #### [facility] [address] [place] [address] Lymphocytes/100 leukocytes i n Blood by Automated countOrdered By: Ria Talamantes on 05-24-2023 Lymphocytes/100 WBC (Bld) 6.3 % Normal . [facility] Comment on above: Performed By: #### B MP, CBC #### [facility] [address] [place] [address] MCH [Entitic mass] by Automa isaiah countOrdered By: Ria Talamantes on 05-24-2023 MCH (RBC) [Entitic mass] 32.7 pg Normal 27.5-35.2 [facility] Comment on above: Performed By: #### B MP, CBC #### [facility] [address] [place] [address] MCHC Auto (RBC) [Mass/Vol]Or dered By: Ria Talamantes on 05-24-2023 MCHC (RBC) [Mass/Vol] 33.8 g/dL 32.5-35.[address] [facility] MCV [Entitic volume] by Auto mated countOrdered By: Ria Talamantes on 05-24-2023 MCV (RBC) [Entitic vol] 96.7 fL Normal 83.5-101 [facility] Comment on above: Performed By: #### B MP, CBC #### [facility] [address] Magnesium [Mass/volume] in S rafy or PlasmaOrdered By: Ria Talamantes on 05-24-2023 Magnesium [Mass/Vol] 1.9 mg/dL Normal 1.9-2.7 [facility] Comment on above: Result Comment: PERF ORMED BY: [place] [address] PATHOLOGIST COLOR STRAINING BAG WASHER ROBERTO OCAMPO M.D. Performed By: #### B MP, CBC #### [facility] [address] Monocyte distribution width [Entitic volume] in Blood by AutomatedOrdered By: Ria Talamantes on 05-24-2023 Monocyte distribution width Auto (Bld) [Entitic vol] 20.36 % 0.00-20.00 [facility] Comment on above: For adults in ED, MD W > 20.0 may be associated with a higher risk of sepsis during the first 12 hrs of hospital admission Neutrophils [#/volume] in Bl ood by Automated countOrdered By: Ria Talamantes on 05-24-2023 Neutrophils (Bld) [#/Vol] 13.3 10*3/uL High 1.8-7.7 [facility] Comment on above: Performed By: #### B MP, CBC #### [facility] [address] Nitrite Test strip Ql (U)Ord ered By: Ria Talamantes on 05-24-2023 Nitrite Ql (U) Negative Negative [facility] No Panel InformationOrdered By: Ria Talamantes on 05-24-2023 Estimated GFR (CKD-EPI) 58.542 mL/Min [facility] Creatinine Clearance (Chem 79.52 [facility] Nucleated erythrocytes [Pres ence] in Blood by Automated countOrdered By: Ria Talamantes on 05-24-2023 Nucleated RBC Auto Ql (Bld) 0.0 /100{WBC} 0-0.5 [facility] Partial Thromboplastin Timeo n 05-24-2023 aPTT Coag (Bld) [Time] 27.5 s Normal 25.1-36.5 [facility] Comment on above: Result Comment: A he matocrit value greater than 55% may lead to inaccurate results in coagulation testing. Patients having hematocrit values >55% require a special collection tube for coagulation studies. Please contact the laboratory at [phone] for redraw instructions. PERFORMED BY: [place] [address] PATHOLOGIST COLOR STRAINING BAG WASHER ROBERTO OCAMPO M.D. Performed By: #### P TT, HEPATIC, BMP, PT #### [address] Platelet mean volume [Entiti c volume] in Blood by Automated countOrdered By: Ria Talamantes on 05-24-2023 Platelet mean volume (Bld) [Entitic vol] 9.6 fL Normal 6.6-10.1 [facility] Comment on above: Performed By: #### B MP, CBC #### [address] Platelets [#/volume] in Bloo d by Automated countOrdered By: Ria Talamantes on 05-24-2023 Platelets (Bld) [#/Vol] 246 10*3/uL Normal 150-450 [facility] Comment on above: Performed By: #### B MP, CBC #### [address] Potassium [Moles/volume] in Serum or PlasmaOrdered By: Ria Talamantes on 05-24-2023 Potassium [Moles/Vol] 4.1 mmol/L Normal 3.5-5.[address] [facility] Comment on above: Performed By: #### B MP, CBC #### [address] Prothrombin time (PT)Ordered By: Ria Talamantes on 05-24-2023 PT Coag (PPP) [Time] 12.8 s Normal 9.0-12.9 [facility] Comment on above: A hematocrit value g reater than 55% may lead to inaccurate results in coagulation testing. Patients having hematocrit values >55% require a special collection tube for coagulation studies. Please contact the laboratory at [phone] for redraw instructions. Result Comment: A he matocrit value greater than 55% may lead to inaccurate results in coagulation testing. Patients having hematocrit values >55% require a special collection tube for coagulation studies. Please contact the laboratory at [phone] for redraw instructions. Performed By: #### P TT, HEPATIC, BMP, PT #### [address] Serum or plasma anion gap de terminationOrdered By: Ria Talamantes on 05-24-2023 Anion gap [Moles/Vol] 13.0 mmol/L Normal 6.0-15.0 [facility] Comment on above: Performed By: #### B MP, CBC #### [address] Sodium [Moles/volume] in Ser um or PlasmaOrdered By: Ria Talamantes on 05-24-2023 Sodium [Moles/Vol] 136 mmol/L Normal 136-145 [facility] Comment on above: Performed By: #### B MP, CBC #### [address] Specific gravity Auto test s trip (U) [Rel density]Ordered By: Ria Talamantes on 05-24-2023 Specific gravity (U) [Rel density] 1.021 1.001-1.03 0 [facility] Squamous epithelial cells de tection in urine sediment by light microscopyOrdered By: Ria Talamantes on 05-24-2023 Epithelial cells.squamous LM Ql (Urine sed) None seen [HPF] 0-2 [facility] Thyroid Stimulating Hormoneo n 05-24-2023 TSH Qn 1.10 m[IU]/L Normal 0.45-5.33 [facility] Comment on above: Result Comment: PERF ORMED BY: [place] [address] PATHOLOGIST [employer] W[employer]ER ROBERTO OCAMPO M.D. Performed By: #### P TT, HEPATIC, BMP, PT #### [facility] [address] [id number] [place] Troponin I High Sensitivityo n 05-24-2023 Troponin I High Sensitivity 11.5 pg/mL Normal 0.0-20.0 [facility] Comment on above: Result Comment: PERF ORMED BY: [place] [address] PATHOLOGIST [employer] W[employer]ER ROBERTO OCAMPO M.D. Performed By: #### P TT, HEPATIC, BMP, PT #### [address] Troponin I High Sensitivity 8.9 pg/mL Normal 0.0-20.0 [facility] Comment on above: Result Comment: PERF ORMED BY: [place] [address] PATHOLOGIST [employer] W[employer]ER ROBERTO OCAMPO M.D. Performed By: #### B MP, CBC #### [address] Troponin I.cardiac [Mass/vol ume] in Serum or Plasma by Detection limit <= 0.01 ng/Ordered By: Ria Talamantes on 05-24-2023 Troponin I.cardiac DL <= 0.01 ng/mL [Mass/Vol] 8.9 pg/mL 0.0-20.0 [facility] Urea nitrogen [Mass/volume] in Serum or PlasmaOrdered By: Ria Talamantes on 05-24-2023 Urea nitrogen [Mass/Vol] 23 mg/dL Normal 7-25 [facility] Comment on above: Performed By: #### B MP, CBC #### [facility] [address] [place] [address] Urine bacteria detection by automated methodOrdered By: Ria Talamantes on 05-24-2023 Bacteria Auto Ql (U) None seen None Seen [facility] Urine clarity by refractomet ry automatedOrdered By: Ria Talamantes on 05-24-2023 Clarity Refractometry automated (U) Clear Clear [facility] Urine glucose measurement by automated test strip (mass/volume)Ordered By: Ria Talamantes on 05-24-2023 Glucose Auto test strip (U) [Mass/Vol] Normal mg/dL Normal [facility] Urine hemoglobin detection b y automated test stripOrdered By: Ria Talamantes on 05-24-2023 Hemoglobin Auto test strip Ql (U) Negative Negative [facility] Urine leukocyte esterase det ection by automated test stripOrdered By: Ria Talamantes on 05-24-2023 Leukocyte esterase Auto test strip Ql (U) Negative Negative [facility] Urine pH measurement by auto mated test stripOrdered By: Ria Talamantes on 05-24-2023 pH (U) 5.5 [pH] Normal 5.0-9.0 [facility] Comment on above: Order Comment: Name Collection Type:: Clean-Voided Midstream Performed By: #### P TT, HEPATIC, BMP, PT #### [facility] [address] Urine protein measurement by automated test strip (mass/volume)Ordered By: Ria Talamantes on 05-24-2023 Protein (U) [Mass/Vol] 30 mg/dL High Negative [facility] Comment on above: Order Comment: Name Collection Type:: Clean-Voided Midstream Performed By: #### P TT, HEPATIC, BMP, PT #### [facility] [address] [place] [address] Urobilinogen Auto test strip (U) [Mass/Vol]Ordered By: Ria Talamantes on 05-24-2023 Urobilinogen (U) [Mass/Vol] Normal mg/dL Normal [facility] CBC AUTO DIFFon 03-10-2021 BASO # 0.1 103/ul Normal 0.0-0.1 [facility] Comment on above: Performed By: #### C BC #### [facility] [address] [address] [address] Christina Heredia Basophils/100 WBC (Bld) 0.7 % Normal 0.2-2.0 [facility] Comment on above: Performed By: #### C BC #### [facility] [address] [place] [address] Dr. Christina Heredia EO # 0.2 103/ul Normal 0.0-0.7 [facility] Comment on above: Performed By: #### C BC #### [facility] [address] [place] [address] Dr. Christina Heredia Eosinophils/100 WBC (Bld) 1.7 % Normal 0.9-7.0 [facility] Comment on above: Performed By: #### C BC #### [facility] [address] [place] [address] Dr. Christina Heredia Erythrocyte distribution width (RBC) [Ratio] 12.6 % Normal 11.0-15.0 [facility] Comment on above: Performed By: #### C BC #### [facility] [address] [place] [address] Dr. Christina Heredia Hematocrit (Bld) [Volume fraction] 43.9 % Normal 42.0-54.0 [facility] Comment on above: Performed By: #### C BC #### [facility] [address] [place] [address] Dr. Christina Heredia Hemoglobin (Bld) [Mass/Vol] 14.1 g/dL Normal 14.0-18.0 [facility] Comment on above: Performed By: #### C BC #### [facility] [address] [place] [address] Dr. Christina Heredia IG # 0.13 10e3/ul Critically high 0.00-0.03 [facility] Comment on above: Performed By: #### C BC #### [facility] [address] [place] [address] Dr. Christina Heredia IG % 1.5 % Critically high 0.0-0.5 [facility] Comment on above: Performed By: #### C BC #### [facility] [address] [place] [address] Dr. Christina Heredia LYMPH # 2.4 103/ul Normal 1.2-3.8 [facility] Comment on above: Performed By: #### C BC #### [facility] [address] [place] [address] Dr. Christina Heredia Lymphocytes/100 WBC (Bld) 27.0 % Normal 20.5-60.0 [facility] Comment on above: Performed By: #### C BC #### [facility] [address] [place] [address] Dr. Christina Heredia MANUAL DIFF REQ NO Normal [facility] Comment on above: Performed By: #### C BC #### [facility] [address] [place] [address] Dr. Christina Heredia MCH (RBC) [Entitic mass] 30.9 pg Normal 25.9-34.0 [facility] Comment on above: Performed By: #### C BC #### [facility] [address] [place] [address] Dr. Christina Heredia MCHC (RBC) [Mass/Vol] 32.1 g/dL Normal 29.9-35.2 [facility] Comment on above: Performed By: #### C BC #### [facility] [address] [place] [address] Dr. Christina Heredia MCV (RBC) [Entitic vol] 96.3 fL Critically high 80.0-94.0 [facility] Comment on above: Performed By: #### C BC #### [facility] [address] [place] [address] Dr. Christina Heredia MONO # 0.6 103/ul Normal 0.3-0.8 [facility] Comment on above: Performed By: #### C BC #### [facility] [address] [place] [address] Dr. Christina Heredia Monocytes/100 WBC (Bld) 6.4 % Normal 1.7-12.0 [facility] Comment on above: Performed By: #### C BC #### [facility] [address] [place] [address] Dr. Christina Heredia NEUT # 5.5 103/ul Normal 1.4-6.5 [facility] Comment on above: Performed By: #### C BC #### [facility] [address] [place] [address] Dr. Christina Heredia Neutrophils/100 WBC (Bld) 62.7 % Normal 43.0-75.0 [facility] Comment on above: Performed By: #### C BC #### [facility] [address] [place] [address] Dr. Christina Heredia Platelet mean volume (Bld) [Entitic vol] 10.8 fL Normal 9.5-13.5 [facility] Comment on above: Performed By: #### C BC #### [facility] [address] [place] [address] Dr. Christina Heredia PLT 251 103/ul Normal 150-450 [facility] Comment on above: Performed By: #### C BC #### [facility] [address] [place] [address] Dr. Christina Heredia RBC 4.56 106/ul Critically low 4.70-6.10 [facility] Comment on above: Performed By: #### C BC #### [facility] [address] [place] [address] Dr. Christina Heredia WBC 8.7 103/ul Normal 4.0-11.0 [facility] Comment on above: Performed By: #### C BC #### [facility] [address] [place] [address] Dr. Christina Heredia CRPon 03-10-2021 CRP [Mass/Vol] mg/L Normal <=1.0 [facility] Comment on above: Performed By: #### C RP, CMP #### [facility] [address] [place] [address] Dr. Christina Heredia MONOon 03-10-2021 Monocytes (Bld) [#/Vol] Negative Normal NEGATIVE [facility] Comment on above: Performed By: #### M CHRISTIANO #### [facility] [address] [place] [address] Dr. Christina Heredia PROF 14(COMP METB)on 021 Albumin [Mass/Vol] 3.3 g/dL Critically low 3.5-5.0 [facility] Comment on above: Performed By: #### C RP, CMP #### [facility] [address] [place] [address] Dr. Christina Heredia Albumin/Globulin [Mass ratio] 0.8 {ratio} Normal [facility] Comment on above: Performed By: #### C RP, CMP #### [facility] [address] [place] [address] Dr. Christina Heredia ALP [Catalytic activity/Vol] 64 U/L Normal 38-126 [facility] Comment on above: Performed By: #### C RP, CMP #### [facility] [address] [place] [address] Dr. Christina Heredia ALT [Catalytic activity/Vol] 42 U/L Normal 21-72 [facility] Comment on above: Performed By: #### C RP, CMP #### [facility] [address] [place] [address] Dr. Christina Heredia Anion gap [Moles/Vol] 11.4 mmol/L Normal [facility] Comment on above: Performed By: #### C RP, CMP #### [facility] [address] [place] [address] Dr. Christina Heredia AST [Catalytic activity/Vol] 18 U/L Normal 17-59 [facility] Comment on above: Performed By: #### C RP, CMP #### [facility] [address] [place] [address] Dr. Christina Heredia Bilirubin [Mass/Vol] 0.5 mg/dL Normal 0.2-1.3 [facility] Comment on above: Performed By: #### C RP, CMP #### [facility] [address] [place] [address] Dr. Christina Heredia Calcium [Mass/Vol] 8.8 mg/dL Normal 8.4-10.2 [facility] Comment on above: Performed By: #### C RP, CMP #### [facility] [address] [place] [address] Dr. Christina Heredia Chloride [Moles/Vol] 109 mmol/L Critically high 98-107 [facility] Comment on above: Performed By: #### C RP, CMP #### [facility] [address] [place] [address] Dr. Christina Heredia CO2 [Moles/Vol] 24.3 mmol/L Normal 22.0-30.0 [facility] Comment on above: Performed By: #### C RP, CMP #### [facility] [address] [address] [address] Christina Heredia Creatinine [Mass/Vol] 1.43 mg/dL Critically high 0.66-1.25 [facility]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 art: May 24, 2023 Arturo Dolan , DO Admit Provider , Attending Provider Active Start: May 24, 2023 Team Status: Active Member Role Status Dates Costa Guevara MD Primary Care Provider Active Start: May 24, 2023 Bassem Lopez DO Emergency Provider Active St art: May 24, 2023 Arturo Dolan , DO Admit Provider , Other Provider Active [...] Other Provider Active Start: J anuary 2023 Shnael Card [facility]- Other Provider Active Sta rt: May 24, 2023 Shana Angeles MD Other Provider Active Start: May 24, 2023 Team Status: Inactive Member Role Status Dates Costa Guevara MD Primary Care Provider Active Start: May 28, 2023 End: May 28, 2023 Edwin Mckinney PA-C Emergency Provider Active Start: May 28, 2023 End: May 28, 2023 Team Status: Inactive Member Role Status Dates Costa Guevara MD Primary Care Provider Active Start: December 02, 2023 End: December 02, 2023 Bassem Lopez DO Emergency Provider Active St art: December 02, 2023 End: December 02, 2023 Hotel Front Office Manager Relationship Specialty Start Date End Date Costa Guevara MD [address] [place] [address] PCP - General Family Medicine 08/01/23 Hotel Front Office Manager Relationship Specialty Start Date End Date Costa Guevara MD [address] [place] [address] PCP - General Family Medicine 08/01/23 Goals (unrecognized section and content) Goals may be documented in a n alternate sectionGoals may be documented in an alternate sectionGoals may be documented in an alternate sectionGoals may be documented in an alternate sectionGoals may be documented in an alternate sectionNot on filedocumented as of this encounterNot on filedocumented as of this encounterNot on filedocumented as of this encounter FOR [...] BE BASED ON THE PRIMARY CLINICAL RECORDS. [facility]. provides no warranty or guarantee of the accuracy or completeness of information in this document.
== END 2024-10-31 09:24 | disposition home or self-care (01) ==
LOC: ER 09:35
PROVIDERS: Emergency Provider Emergency Medicine; PCP Family Medicine
DX: L03.317 Cellulitis of buttock (principal); R22.41 Localized swelling, mass and lump, right lower limb
CPT/HCPCS: 99283

== ENCOUNTER 2025-01-27 15:41 | Outpatient (OUT) | payer OTHER, SELFPAY ==
--- OUTSIDE RECORDS SUMMARY | 2021-01-26 11:15 | XMS_ITS | Continuity of Care Document ---
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 [address], [place], [id number], [place]. tel:[phone] [facility], [address], [place], [id number], tel:[phone] COVID [facility] Encounter for screening for other viral diseases Pema Allen. [address], [place], [id number], [place]. tel:[phone] Family History Family Member Type Diagnosis Age At Onset No Information Payers Payer name Insurance type Covered alliance party ID Authoriza tithien(s) [facility] Claims CI [id number] Social History Type Description Quantity Date Captured Comments Alcohol Use Details Unknown Caffeine Use Details Unknown Tobacco Use Status No Information Smoking Status No Information Sex Male Sexual Orientation Straight or heterosexual Gender Identity Male Chief Complaint And Reason For Visit No Information Reason For Referral Reason For Referral No Information History Of Present Illness Encounter Date Complaint History Of Prese nt Illness No Information Functional Status Date Functional Assessmen t No Information Instructions Date Instruction Additional Infor mation No Information Assessments Type Assessment Date assessment Encounter for screening for othe r viral diseases Patient Care Teams Name Effective Dates (start - stop) Status Members No Information
--- OUTSIDE RECORDS SUMMARY | 2025-01-13 05:45 | XMS_ITS ---
Author Organization [facility] [place] Address [address] [place] [address] Care Team Providers Care Jackhammer Operator Name Role Phone Vidal Guevara Primary Care Provider [phone] Allergies No Known Allergies REASON FOR VISIT cyst in groin popped- left side- wants ATB incase of infection Medications Medication SIG (Take, Route, Frequency, Duration) Notes Start Date End Date Status Furosemide 40 mg 1 tablet Orally BID; Duration: 90 days Active Pantoprazole Sodium 40 mg TAKE 1 TABLET DAILY Active Ondansetron 4 MG 1 tablet on the tong ue and allow to dissolve Orally Q 6 hours PRN; Duration: 3 08/02/2023 Active Levsin/SL 0.125 MG 1 tablet under the t ongue and allow to dissolve as needed Sublingual AC and HS 08/02/2023 Active Eliquis 5 MG 1 tablet Orally Twic e a day; Duration: 90 days 08/27/2023 Active Doxycycline Monohydrate 100 MG 1 tablet Orally bid; Duration: 10 days 01/13/2025 Active Colchicine 0.6 MG 1 tablet at onset - then repeat in 4 hours if needed X1 Orally; Duration: 30 08/07/2023 Active Allopurinol 100 MG 1 tablet Orally Once a day; Duration: 90 days 08/20/2023 Active Celecoxib 200 mg TAKE 2 CAPSULES ONCE DAILY WITH FOOD Active Cefdinir 300 MG 2 capsule Orally onc e a day; Duration: 10 days 01/13/2025 Active Carvedilol 25 MG 1 tablet with food O rally once a day; Duration: 90 days Active Social History Tobacco Use: Social History Observation Description Date Details (start date - stop date) Never Smoker NA - NA Tobacco Use/Smoking Question Answer Notes Patient is a nonsmoker Problems Problem Type SNOMED Code ICD Code Onset Dates Problem Status W/U Status Risk Notes Problem Boil (16526700) Boil (L02.92) Active confirmed Vital Signs Weight 255.0 lbs 01/13/2025 Height 66 in 01/13/2025 Blood pressure systolic 142 mm Hg 01/14/20 25 Blood pressure diastolic 90 mm Hg 025 BMI 41.15 kg/m2 01/13/2025 Encounters Encounter Location Date Provider Diagnosis [facility] [address] [place] [address] 01/13/2025 Vidal Guevara Boil L02.92 Assessments Encounter Date Diagnosis (ICD Code) Assessment Notes Treatment Notes Treatment Clinical Notes Section Notes 01/13/2025 Boil (ICD-10 - L02.92) Plan Of Treatment Medication Medication Name Sig Start Date Stop Date Notes Doxycycline Monohydrate 100 MG 1 tablet Orally bid; Duration: 10 days 01/13/2025 Cefdinir 300 MG 2 capsule Orally onc e a day; Duration: 10 days 01/13/2025 Medications Administered Medication Instructions Date of Administration Dosage Notes Ceftriaxone 1 gram 01/13/2025 1 g Progress Notes * Tejas FRANK JrDOB: [birth year] (59 yo M)Acc No.[id number]:01/13/2025 Progress Note Patient: Tejas SYLVESTER Provider: Magy Guevara ([facility])MD :1965 A ge:59 Y S ex:Male Date:01/13/2025 Address:[address] [id number] Check In:09:33 AM ESTCheck O ut:10:07 AM EST Subjective: * Chief Complaints: * c yst in groin popped- left side- wants ATB incase of infection * HPI: G eneral: Cyst in left scrotal. * Active Problem List R60.9 Edema Modified On:02/22/2023W/U Status:confirmed K21.9 GERD (gastroesophage al reflux disease) Modified On:09/24/2023 Status:confirmed I48.91 AF (atrial fibrillat ion) Modified On:09/24/2023 Status:confirmed I10 BP (high blood press ure) Modified On:09/24/2023 Status:confirmed N18.30 Chronic kidney disea se (CKD), stage III (moderate) Modified On:09/24/2023 Status:confirmed I48.91 Afib Modified On:09/04/2023 Status:confirmed I10 Hypertension Modified On:08/07/2023 Status:confirmed I50.41 Acute combined systo lic (congestive) and diastolic (congestive) heart failure Modified On:07/26/2023 Status:confirmed E11.9 Controlled type 2 di abetes mellitus Modified On:07/26/2023 Status:confirmed I80.209 Deep vein thrombophl ebitis of lower leg, unspecified laterality Modified On:07/26/2023 Status:confirmed N52.9 Impotence Modified On:07/26/2023 Status:confirmed K57.90 Diverticulosis Modified On:07/26/2023 Status:confirmed R59.0 Cervical lymphadenop athy Modified On:07/26/2023 Status:confirmed I47.1 PSVT (paroxysmal sup raventricular tachycardia) Modified On:07/26/2023 Status:confirmed L02.214 Groin abscess Modified On:07/26/2023 Status:confirmed I48.91 Atrial fibrillation Modified On:05/29/2023 Status:confirmed I48.0 Paroxysmal atrial fi brillation Modified On:05/29/2023 Status:confirmed J18.9 Pneumonia Modified On:05/29/2023 Status:confirmed M10.9 Gout Modified On:05/29/2023 Status:confirmed Z68.43 BMI 50.0-59.9, adult Modified On:12/10/2023 Status:confirmed L72.3 Sebaceous cyst Modified On:12/10/2023 Status:confirmed M79.604 Right leg pain Modified On:08/06/2024W/U Status:confirmed M25.561 Right knee pain Modified On:03/25/2024W/U Status:confirmed L03.211 Facial cellulitis Modified On:04/08/2024W/U Status:confirmed M17.9 Knee osteoarthritis Modified On:04/08/2024W/U Status:confirmed L03.90 Cellulitis Modified On:08/14/2024W/U Status:confirmed L02.92 Boil Modified On:01/13/2025W/U Status:confirmed * Medical History: * Surgical History: L eft leg surgery Right Foot surgery with screws * Hospitalization/Major Diagno stic Procedure: A trial Fibrillation 05/24/2023Infection/Wound 07/2023 * Family History: F ather: alive. M other: , cancer, diagnosed with Unspecified essential hypertension. 2 sister(s) . . * Social History: T obacco Use: T obacco Use/Smoking P atient is a n onsmoker * Medications: T akingAllopurinol 100 MG Tablet 1 tablet Orally Once a day Carvedilol 25 MG Tablet 1 tablet with food Orally once a day Celecoxib 200 mg Capsule TAKE 2 CAPSULES ONCE DAILY WITH FOOD Colchicine 0.6 MG Tablet 1 tablet at onset - then repeat in 4 hours if needed X1 Orally Eliquis(Apixaban) 5 MG Tablet 1 tablet Orally Twice a day Furosemide 40 mg Tablet 1 tablet Orally BID Levsin/SL(Hyoscyamine Sulfate) 0.125 MG Tablet Sublingual 1 tablet under the tongue and allow to dissolve as needed Sublingual AC and HS Ondansetron 4 MG Tablet Disintegrating 1 tablet on the tongue and allow to dissolve Orally Q 6 hours PRN Pantoprazole Sodium 40 mg Tablet Delayed Release TAKE 1 TABLET DAILY Taking Allopurinol 100 MG Tablet 1 tablet Orally Once a day Taking Carvedilol 25 MG Tablet 1 tablet with food Orally once a day Taking Celecoxib 200 mg Capsule TAKE 2 CAPSULES ONCE DAILY WITH FOOD Taking Colchicine 0.6 MG Tablet 1 tablet at onset - then repeat in 4 hours if needed X1 Orally Taking Eliquis(Apixaban) 5 MG Tablet 1 tablet Orally Twice a day Taking Furosemide 40 mg Tablet 1 tablet Orally BID Taking Levsin/SL(Hyoscyamine Sulfate) 0.125 MG Tablet Sublingual 1 tablet under the tongue and allow to dissolve as needed Sublingual AC and HS Taking Ondansetron 4 MG Tablet Disintegrating 1 tablet on the tongue and allow to dissolve Orally Q 6 hours PRN Taking Pantoprazole Sodium 40 mg Tablet Delayed Release TAKE 1 TABLET DAILY DiscontinuedCefdinir 300 MG Capsule 2 capsule Orally once a day Doxycycline Monohydrate 100 MG Capsule 1 capsule Orally bid Doxycycline Monohydrate 100 MG Tablet 1 tablet Orally bid Indomethacin 50 MG Capsule 1 capsule with food or milk, PRN pain Orally TID Medication List reviewed and reconciled with the patientDiscontinued Cefdinir 300 MG Capsule 2 capsule Orally once a day Discontinued Doxycycline Monohydrate 100 MG Capsule 1 capsule Orally bid Discontinued Doxycycline Monohydrate 100 MG Tablet 1 tablet Orally bid Discontinued Indomethacin 50 MG Capsule 1 capsule with food or milk, PRN pain Orally TID Medication List reviewed and reconciled with the patient * Allergies: N .K.D.A.no[Allergies Verified] Objective: * Vitals: W t:255.0lbs, Ht: 66 in, BP:142/90mm Hg, BMI:41.15Index, Ht-cm: 167.64 cm, Wt-k.67 kg. * Examination: A bdomen Exam:: L eft scrotal area iwwtih boil - not lancable. Assessment: * Assessment: 1. B oil - L02.92 (Primary) Plan: * Treatment: * Therapeutic Injections: Ceftriaxone 1 gram : 1 g (Route: Intramuscular) given by Lay Connor SA on right gluteus (Boil) * Procedure Codes: 9 6372 THERAP.INJ. OF MED. INTRAMUSCULAR OR [id number] IM ROCEPHIN per 250 mg, Units: 4.00 * Preventive Medicine: Screenings/Counseling: B OK ACTION PLAN Above Normal BMI Follow-up D ietary management education, guidance, and counseling * * Sign off status: Completed Visit Status: C HK (Check Out) true * Provider: Magy Guevara ([facility])MD Date: 0 01/13/2025 Generated for Leo mathew/Sushil/eTbenito on: 0 01/27/2025 03:44 PM EDT History and Physical Notes * HPI (History of Present Illness) Category Sub-Category Detail Notes Category Not es General Cyst in left sc rotal Examination Category Sub-Category Detail Notes Category Not es Abdomen Exam: Left scrotal a ora iwwtih boil - not lancable
--- OUTSIDE RECORDS SUMMARY | 2025-01-27 15:44 | XMS_ITS | Encounter Summary ---
Author Organization [facility] Address [address] [place] [address] Phone Care Team Providers Care Regional Tanker Truck Driver Name Role Phone Unavailable Primary Care Provider Unavailabl e Reason for Visit * Reason Comments New Med Request Encounter Details Date Type Department Care Team (Late st Contact Info) Description 03/04/2024 Refill [facility] [address] [phone] Andreea Paz MD [address] [employer] [address], [address] [address] Social History Tobacco Use Types Packs/Day Years Used Date Smoking Tobacco: Never Assessed Sex and Gender Information Value Date Recorded Sex Assigned at Male 07/05/2023 12:04 PM EST Legal Sex Male 9:20 AM EST Gender Identity Male 07/05/2023 12:04 PM EST Sexual Orientation Straight 07/05/2023 12 :04 PM EST documented as of this encounter Plan of Treatment Not on file documented as of this encounter Visit Diagnoses Not on filedocumented in this encounter
--- OUTSIDE RECORDS SUMMARY | 2025-01-27 15:44 | XMS_ITS | Clinical Summary ---
Author Organization [facility] Address [address] [place] [address] Phone Care Team Providers Care Pig Furnace Operator Name Role Phone Unavailable Primary Care Provider Unavailabl e Allergies No known active allergies Medications apixaban (Eliquis) 5 mg tabletIndication s:Atrial fibrillation, unspecified type (Multi) Take 1 tablet (5 mg) by mouth 2 times a day. 180 tablet 3 06/06/2023 Active dilTIAZem CD (Cardizem CD) 120 mg 24 hr capsuleIndicatio ns:Atrial fibrillation, unspecified type (Multi),SVT (supraventricula r tachycardia) Take 1 capsule (120 mg) by mouth once daily. 90 capsule 3 06/06/2023 Active pantoprazole (ProtoNix) 40 mg EC tablet Take 1 tablet (40 mg) by mouth once daily in the morning. Take before meals. 05/22/2023 Active furosemide (Lasix) 40 mg tablet Take 1 tablet (40 mg) by mouth once daily. 05/22/2023 Active amLODIPine (Norvasc) 10 mg tablet Take 1 tablet (10 mg) by mouth once daily. 03/18/2023 Active Eliquis 5 mg tablet Take 1 tablet (5 mg) by mouth 2 times a day. 05/27/2023 Active diclofenac (Voltaren) 75 mg EC tablet Take 1 tablet (75 mg) by mouth 2 times a day. 02/04/2023 Active carvedilol (Coreg) 25 mg tablet Take 1 tablet (25 mg) by mouth once daily. 03/18/2023 Active dilTIAZem CD (Cardizem CD) 120 mg 24 hr capsule Take 1 capsule (120 mg) by mouth once daily. 05/27/2023 Active hydroCHLOROthiaz salvador (HYDRODiuril) 25 mg tablet Take 1 tablet (25 mg) by mouth once daily. 03/18/2023 Active irbesartan (Avapro) 300 mg tablet Take 1 tablet (300 mg) by mouth once daily. 03/11/2023 Active Klor-Con M20 20 mEq ER tablet Take 1 tablet (20 mEq) by mouth once daily. 05/27/2023 Active spironolactone (Aldactone) 50 mg tablet Take 1 tablet (50 mg) by mouth once daily. 02/22/2023 Active Active Problems Problem Noted Date Diagnosed Date GERD (gastroesophageal reflux disease) 4 Hiatal hernia 06/06/2023 SVT (supraventricular tachycardia) 06/06/2023 Atrial fibrillation, persistent (Multi) 06/06/19 24 Essential hypertension 06/06/2023 Social History Tobacco Use Types Packs/Day Years Used Date Smoking Tobacco: Never Assessed Sex and Gender Information Value Date Recorded Sex Assigned at Male 07/05/2023 12:04 PM EST Legal Sex Male 9:20 AM EST Gender Identity Male 07/05/2023 12:04 PM EST Sexual Orientation Straight 07/05/2023 12 :04 PM EST Plan of Treatment Health Maintenance Due Date Last Done Comments CT Colonography 1965 Colonoscopy 1965 Colorectal Cancer Screening 1965 FIT-DNA (Cologuard) 1965 FIT 1965 HIV Screening 1965 Lipid Panel 1965 Sigmoidoscopy 1965 Yearly Adult Physical 1965 MMR Vaccines (1 of 1 - Stand lilo series) 1964 Hepatitis C Screening 1981 DTaP/Tdap/Td Vaccines (1 - Tdap) 1985 PSA Prostate Cancer Screening 2013 Pneumococcal Vaccine (1 of 1 - PCV) 2013 Zoster Vaccines (1 of 2) 2013 COVID-19 Vaccine (1 - 2023-2 5 season) 2025 Influenza Vaccine (#1) 2025 05/24/2023 RSV High Risk: (Elderly (60+ ) or Population) (1 - 1-dose 75+ series) 2038 HIB Vaccines Aged Out No longer eligi ble based on patient's age to complete this topic HPV Vaccines Aged Out No longer eligi ble based on patient's age to complete this topic Hepatitis A Vaccines Aged Out No long er eligible based on patient's age to complete this topic Hepatitis B Vaccines Aged Out No long er eligible based on patient's age to complete this topic IPV Vaccines Aged Out No longer eligi ble based on patient's age to complete this topic Meningococcal Vaccine Aged Out No hector kimberly eligible based on patient's age to complete this topic Rotavirus Vaccines Aged Out No longer eligible based on patient's age to complete this topic [address] [employer]
--- OUTSIDE RECORDS SUMMARY | 2025-01-27 15:44 | XMS_ITS | Encounter Summary ---
Author Organization [facility] Address [address] [place] [address] Phone Care Team Providers Care Legal Billing Specialist Name Role Phone Unavailable Primary Care Provider Unavailabl e Encounter Details Date Type Department Care Team (Late st Contact Info) Description 05/24/2023 Scanned Document [facility] [address] [place] [phone] Scanning, Generic Provider Social History Tobacco Use Types Packs/Day Years [...] on file documented as of this encounter Procedures Procedure Name Priority Date/Time Associated Diagnosis Comments ECHOCARDIOGRAM 05/24/2023 documented in this encounter Results * ECHOCARDIOGRAM (05/24/2023) Narrative 05/24/2023 Ordered by an unspecified provider. us Generic Provider Scanning CV ECHO PROCEDURES Fin al Result documented in this encounter Visit Diagnoses Not on filedocumented in this encounter
--- OUTSIDE RECORDS SUMMARY | 2025-01-27 15:44 | XMS_ITS | Clinical Summary ---
Author Organization [facility] Address [address] [place] [address] Care Team Providers Care Transportation Design Engineer Name Role Phone Storm Guevara MD Primary Care Provider [phone] Allergies No known active allergies Medications pantoprazole (ProtoNix) 40 mg EC tablet Take 40 mg by mouth before breakfast. 4 Active Eliquis 5 mg tablet Take 5 mg by mouth in the morning and at bedtime. 4 Active allopurinol (Zyloprim) 100 mg tablet Take 100 mg by mouth in the morning. Active celecoxib (CeleBREX) 200 mg capsule Take 200 mg by mouth in the morning. Active furosemide (Lasix) 40 mg tabletIndications :Chronic heart failure with preserved ejection fraction (CMS/HCC) Take 1 tablet (40 mg) by mouth two times daily. 180 tablet 3 4 Active SEMAGLUTIDE SUBQ 4 Active dilTIAZem CD (Cardizem CD) 120 mg 24 hr capsuleIndication s:Paroxysmal atrial fibrillation (CMS/HCC) Take 1 capsule (120 mg) by mouth once daily as directed. 90 capsule 3 5 Active Active Problems Problem Noted Date Diagnosed Date Strain of calf muscle 12/03/2023 Acute diastolic HF (heart failure) 08/20/2023 08/20/2023 Acute pain of right foot 08/20/2023 024 Bacteremia due to Streptococcus pneumoniae 08/1908/20/2023 Benign paroxysmal positional vertigo 08/20/2023 08/20/2023 BMI 50.0-59.9, adult 08/20/2023 08/20/2023 Cellulitis 08/20/2023 08/20/2023 Dog bite 08/20/2023 08/20/2023 Dyspnea 08/20/2023 08/20/2023 Hyperglycemia 08/20/2023 08/20/2023 Hypoxia 08/20/2023 08/20/2023 Sepsis 08/20/2023 08/20/2023 Prediabetes 08/20/2023 08/20/2023 Pneumonia 08/20/2023 08/20/2023 Morbid obesity 08/20/2023 08/20/2023 Leg edema 08/20/2023 08/20/2023 Infection, streptococcus pneumoniae 08/20/2023 08/20/2023 Essential hypertension 06/06/2023 GERD (gastroesophageal reflux disease) 07/01/2023 A-fib 06/06/2023 Overview (11/27/2023): - CHADVASC at least 3 for hypertension, history of DVT, possibly for for underlying HFpEF SVT (supraventricular tachycardia) 06/06/2023 07/01/2023 Resolved Problems Problem Noted Date Diagnosed Date Resolved Date Congestive heart failure 08/20/2023 08/20/202303/2024 Family History Medical History Relation Name Comments Stroke Mother Relation Name Status Comments Father Alive Mother Social History Tobacco Use Types Packs/Day Years Used Date Smoking Tobacco: Never Smokeless Tobacco: Never Tobacco Cessation:Counseling Given: Not Answered Alcohol Use Standard Drinks/Week Comments Yes 0 (1 standard drink = 0.6 oz pur e alcohol) occasional [place] Safety & Environment Answer Date Rec orded Fear of Current or Ex-Partner Not on file Emotionally Abused Not on file 06/28/2023 Physically Abused Not on file 06/28/2023 Sexually Abused Not on file 06/28/2023 Physically or Sexually Abused Not on file Sex and Gender Information Value Date Recorded Sex Assigned at Not on file Legal Sex Male 12:29 PM EDT Gender Identity Not on file Sexual Orientation Not on file Last Filed Vital Signs Vital Sign Reading Time Taken Comments Blood Pressure 124/85 10/21/2024 10:04 AM EDT Pulse 75 10/21/2024 10:04 AM EDT Temperature 36.2 C (97.2 F) 01/29/2024 3:55 PM EDT Respiratory Rate 18 01/29/2024 3:55 PM EDT Oxygen Saturation 96% 10/21/2024 10:04 AM EDT Inhaled Oxygen Concentration - - Weight 109 kg (241 lb) 10/21/2024 10:04 AM EDT Height 167.6 cm (5' 6 ) 10/21/2024 10:04 AM EDT Body Mass Index 38.9 10/21/2024 10:04 AM EDT Plan of Treatment Health Maintenance Due Date Last Done Comments CT Colonography 1965 Colonoscopy 1963 Colorectal Cancer Screening 1963 Diabetes: Hemoglobin A1C 1963 FIT-DNA 1965 FIT 1963 FOBT 1965 Sigmoidoscopy 1963 Depression Screening 1975 Pneumococcal Vaccine: Pediatrics (0 to 5 Years) and At-Risk Patients (6 to 64 Years) (1 of 2 - PCV) 1982 Zoster Vaccines (1 of 2) 2013 COVID-19 Vaccine (3 - season) 2025 09/01/2020, 08/11/2020 Influenza Vaccine (#1) 2025 4, 02/07/2021, 02/22/2017, Additional history exists Adult Tetanus 03/24/2029 03/24/2019 HIB Vaccines Aged Out No longer eligi ble based on patient's age to complete this topic HPV Vaccines Aged Out No longer eligi ble based on patient's age to complete this topic IPV Vaccines Aged Out No longer eligi ble based on patient's age to complete this topic Meningococcal B Vaccine Aged Out No l onger eligible based on patient's age to complete this topic Meningococcal Vaccine Aged Out No hector kimberly eligible based on patient's age to complete this topic Rotavirus Vaccines Aged Out No longer eligible based on patient's age to complete this topic Insurance Advance Directives * Full Code (Latest Code Status on File) Date Activated Date Inactivated Comments 01/29/2024 12:29 PM 01/29/2024 6:09 PM Care Teams Transportation Design Engineer Relationship Specialty Start Date End Date Storm Guevara MD [address] [place] [address] PCP - General 07/01/23
--- OUTSIDE RECORDS SUMMARY | 2025-01-27 15:45 | XMS_ITS | Clinical Summary ---
Author Organization [facility] Address [address] [place] [address] Care Team Providers Care Boat Mechanic Name Role Phone Unavailable Primary Care Provider Unavailabl e Social History Tobacco Use Types Packs/Day Years Used Date Smoking Tobacco: Never Assessed Sex and Gender Information Value Date Recorded Sex Assigned at Not on file Legal Sex Male 8:25 PM EDT Gender Identity Not on file Sexual Orientation Not on file Last Filed Vital Signs Vital Sign Reading Time Taken Comments Blood Pressure 138/70 05/13/2019 12:00 PM EST Pulse - - Temperature - - Respiratory Rate - - Oxygen Saturation - - Inhaled Oxygen Concentration - - Weight 137 kg (302 lb) 05/13/2019 12:00 PM EST Height 167.6 cm (5' 6 ) 05/13/2019 12:00 PM EST Body Mass Index 48.74 05/13/2019 12:00 PM EST Plan of Treatment Not on file
--- OUTSIDE RECORDS SUMMARY | 2025-01-27 15:45 | XMS_ITS | Encounter Summary ---
Author Organization [facility] Address [address] [place] [address] Phone Care Team Providers Care Sfdc Architect Name Role Phone Unavailable Primary Care Provider Unavailabl e Encounter Details Date Type Department Care Team (Late st Contact Info) Description 05/28/2023 Scanned Document [facility] [address] [place] [phone] Scanning, Generic Provider Social History Tobacco Use [...] Procedure Name Priority Date/Time Associated Diagnosis Comments OUTSIDE IMAGING SCAN 05/28/2023 documented in this encounter Results * OUTSIDE IMAGING SCAN (05/28/2023) Anatomical Region Laterality Modality Other Narrative 05/28/2023 Ordered by an unspecified provider. us Generic Provider Scanning OUTSIDE SCAN Final Result documented in this encounter Visit Diagnoses Not on filedocumented in this encounter
--- OUTSIDE RECORDS SUMMARY | 2025-01-27 15:45 | XMS_ITS | Patient Health Record ---
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 MR#: [id number] : 1965 Acct:[id number] Age/Sex: 58 / M ADM Date: 03/25/24 Loc: RAD Attending Dr: Costa Ackerman M.D. Ordering Physician: Costa Ackerman M.D. Date of Service: 03/25/24 Procedure(s): XR knee RT 3V Accession Number(s): [id number] cc: Costa Ackerman M.D. [place] [address] Patient Name: TEJAS FRANK MRN: [id number] date: 1965 Sex: M Assigned Patient Location: RAD Current Patient Location: Accession/Order Number: [id number] Exam Date: 03/25/2024 09:20 Report Date: 03/26/2024 06:54 At the request of: COSTA ACKERMAN Procedure: XR knee RT 3V PROCEDURE: XR knee RT 3V HISTORY: Right Knee Pain M25.561 COMPARISON: None. FINDINGS: BONES:Marked narrowing of the medial joint space with near [id number] articulation. Small degenerative osteophytes along the articular margins of all 3 compartments. Suspect mild-moderate narrowing of anterior compartment. SOFT TISSUES:No visible soft tissue swelling. EFFUSION:None visible. OTHER: Negative. XR/XR knee RT 3V IMPRESSION: 1. Marked degenerative joint disease. 2. No acute bone abnormality. Electronically authenticated by: KG JANE Date: 03/26/2024 06:54 Dictated By: Kg Jane M.D. Signed By: 03/26/24656 DD/ 3 TD/TT: Insurance Verification Representative: Reason For Referral No Information Medications Medication SIG (Take, Route, Frequency, Duration) Notes Start Date End Date Status Furosemide 40 mg 1 tablet Orally BID; Duration: 90 days Active Eliquis 5 MG 1 tablet Orally Twic e a day; Duration: 90 days 08/27/2023 Active Pantoprazole Sodium 40 mg TAKE 1 TABLET DAILY Active Ondansetron 4 MG 1 tablet on the tong ue and allow to dissolve Orally Q 6 hours PRN; Duration: 3 08/02/2023 Active Levsin/SL 0.125 MG 1 tablet under the t ongue and allow to dissolve as needed Sublingual AC and HS 08/02/2023 Active Allopurinol 100 MG 1 tablet Orally Once a day; Duration: 90 days 08/20/2023 Active Doxycycline Monohydrate 100 MG 1 tablet Orally bid; Duration: 10 days 01/13/2025 Active Colchicine 0.6 MG 1 tablet at onset - then repeat in 4 hours if needed X1 Orally; Duration: 30 08/07/2023 Active Celecoxib 200 mg TAKE 2 CAPSULES [...] Problem Status W/U Status Risk Notes Problem Paroxysmal atrial fibrillation (912729048) Paroxysmal atrial fibrillation (I48.0) Active confirmed Problem Acute combined systolic and diastolic heart failure (877846955360244) 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) Active confirmed Problem Sebaceous cyst (302045364) Sebaceous cyst (L72.3) Active confirmed Problem Atrial fibrillation (86137784) Atrial fibrillation (I48.91) Active confirmed Problem Hypertension (63931501) Hypertension (I10) Active confirmed Problem Gastroesophageal reflux disease (793530733) GERD (gastroesophageal reflux disease) (K21.9) Active confirmed Problem Atrial fibrillation (disorder) (70815620) Afib (I48.91) Active confirmed Problem Pneumonia (362747204) Pneumonia (J18.9) Active confirmed Problem Edema (16004199) Edema (R60.9) Active confirmed Problem Gout (42481480) Gout (M10.9) Active confirmed Problem Osteoarthritis of knee (307472422) Knee osteoarthritis (M17.9) Active confirmed Problem Diverticular disease of colon (917191832) Diverticulosis (K57.90) Active confirmed Problem Right knee pain (378285125506594) Right knee pain (M25.561) Active confirmed Problem Cervical lymphadenopathy (636263849) Cervical lymphadenopathy (R59.0) Active confirmed Problem Boil (03152461) Boil (L02.92) Active confirmed Problem Cellulitis (687189064) Cellulitis (L03.90) Active confirmed Problem Paroxysmal supraventricular tachycardia (disorder) (85465541) PSVT (paroxysmal supraventricular tachycardia) (I47.1) Active confirmed Problem Groin abscess (86358362) Groin abscess (L02.214) Active confirmed Problem Pain in right leg (893038443) Right leg pain (M79.604) Active confirmed Problem Atrial fibrillation (76213888) AF (atrial fibrillation) (I48.91) Active confirmed Problem Erectile dysfunction (disorder) (761983974) Impotence (N52.9) Active confirmed Problem Cellulitis and abscess of face (696421176) Facial cellulitis (L03.211) Active confirmed Problem Body mass index 40+ - severely obese (932065395) BMI 50.0-59.9, adult (Z68.43) Active confirmed Problem Essential hypertension (88964337) BP (high blood pressure) (I10) Active confirmed Problem Type II diabetes mellitus without complication (447391428) Controlled type 2 diabetes mellitus (E11.9) Active confirmed Problem Deep vein thrombophlebitis of lower leg, unspecified laterality (I80.209) Active confirmed Problem Chronic kidney disease stage 3 (disorder) (062141514) Chronic kidney disease (CKD), stage III (moderate) (N18.30) Active confirmed Vital Signs Temperature 98.1 degrees Fahrenheit 08/14/2024 Blood pressure diastolic 90 mm Hg 01/13/2025 Height 66 in 01/13/2025 Blood pressure systolic 142 mm Hg 01/13/2025 Weight 255.0 lbs 01/13/2025 BMI 41.15 kg/m2 01/13/2025 Encounters Encounter Location Date Provider Diagnosis [facility] [address] [place] [address] 08/21/2024 Vidal Ackerman [facility] [address] [place] [address] 09/23/2024 Vidal Ruizy [facility] [address] [place] [address] 03/11/2024 Vidal Ackerman Hypertension I10 [facility] [address] [place] [address] 03/26/2024 Vidal [facility] [address] [place] [address] 04/08/2024 Vidal Ackerman [facility] [address] [place] [address] 04/13/2024 Vidal Ackerman [facility] [address] [place] [address] 08/04/2024 Vidal grisel [facility] [address] [place] [address] 03/25/2024 Vidal Ruizy Right knee pain M25. 561 [facility] [address] [place] [address] 08/14/2024 Vidal Ackerman Cellulitis L03.90 [facility] [address] [place] [address] 08/24/2024 Vidal Hoy Cellulitis L03.90 [facility] [address] [place] [address] 12/03/2024 Vidal Hoy Sebaceous cyst L72.3 [facility] [address] [place] [address] 01/13/2025 Vidal Hoy Boil L02.92 [facility] [address] [place] [address] 03/31/2024 Vidal Hoy Right knee pain M25. 561 [facility] [address] [place] [address] 04/08/2024 Vidal Hoy Facial cellulitis L0 3.211 and Knee osteoarthritis M17.9 [facility] [address] [place] [address] 04/20/2024 Vidal Hoy Knee osteoarthritis M17.9 and Primary localized osteoarthritis of right knee M17.11 Assessments Encounter Date Diagnosis (ICD Code) Assessment Notes Treatment Notes Treatment Clinical Notes Section Notes 03/25/2024 Right knee pain (ICD-10 - M25.561) 03/31/2024 Right knee pain (ICD-10 - M25.561) tleragted injection well 04/08/2024 Facial cellulitis (ICD-10 - L03.211) 04/08/2024 Knee osteoarthritis (ICD-10 - M17.9) needs synvisc injection helped but not lasting 04/20/2024 Knee osteoarthritis (ICD-10 - M17.9) synvisc one 04/20/2024 Primary localized osteoarthritis of right knee (ICD-10 - M17.11) 08/14/2024 Cellulitis (ICD-10 - L03.90) 08/24/2024 Cellulitis (ICD-10 - L03.90) need chnge in ab - has been better just not going away low risk for DVT - not missed any of the eliquis 12/03/2024 Sebaceous cyst (ICD-10 - L72.3) 01/13/2025 Boil (ICD-10 - L02.92) 03/11/2024 Hypertension (ICD-10 - I10) Plan Of Treatment Pending Test Test Name Order Date CMP (COMPLETE METABOLIC PANEL) PSA, TOTAL 10/11/2022 BNP 10/11/2022 CBC AUTO DIFF 10/11/2022 GLYCOHEMOGLOBIN A1C 10/11/2022 LIPID PROFILE 10/11/2022 LIVER PROFILE 10/11/2022 PROF CHEM 8 (BAS METB) 10/11/2022 THYROID PROFILE WITH TSH 10/11/2022 ECHOCARDIO M/2D COMPLETE 10/11/2022 Insurance Providers Payer Name Payer Address Payer Phone Subscriber Number Group Number Insured Name Patient Relationship to Insured Coverage Start Date Coverage End Date [facility] [address] [place] [phone] [phone] [id number] Tejas Frank Self - patient is the insured 8 Medications Administered Medication Instructions Date of Administration Dosage Notes Ceftriaxone 1 gram 08/14/2024 1 g Ceftriaxone 1 gram 01/13/2025 1 g Dexamethasone, 4mg/mL 05/29/2023 12 mg 12 m,g Ketorolac Tromethamine 05/29/2023 60 mg 60 Triamcinolone 40 mg/ml 03/31/2024 80 mg Medical (General) History Medical History History ICD Code Cellulitis L03.90 Cervical lymphadenopathy R59.0 Acute combined systolic (con gestive) and diastolic (congestive) heart failure I50.41 Controlled type 2 diabetes mellitus E11. 9 Impotence N52.9 Hypertension I10 Diverticulosis K57.90 Deep vein thrombophlebitis of lower leg, unspecified laterality I80.209 PSVT (paroxysmal supraventricular tachyc ardia) I47.1 Surgical History Surgery Date(Month/Year) Left leg surgery Right Foot surgery with screws Hospitalization History Reason Date(Month/Year) Infection/Wound 07/2023 Atrial Fibrillation 05/24/2023
--- OUTSIDE RECORDS SUMMARY | 2025-01-27 15:45 | XMS_ITS | Clinical Summary ---
Author Organization [employer] Address [id number] [address] 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 Name Role Phone Storm Guevara MD Primary Care Provider [phone] Social History Tobacco Use Types Packs/Day Years Used Date Smoking Tobacco: Never Assessed Sex and Gender Information Value Date Recorded Sex Assigned at Male 10/13/2023 12:03 PM EDT Legal Sex Male 2:39 PM EDT Gender Identity Male 10/13/2023 12:03 PM EDT Sexual Orientation Straight 10/13/2023 12 :03 PM EDT Plan of Treatment Health Maintenance Due Date Last Done Comments Depression Screening 1975 Tobacco Screening 1975 Adult BMI Screening 1981 DTaP,Tdap and Td Vaccines (1 - Tdap) 1982 Zoster (Shingles) Vaccine (1 of 2) 2013 Influenza Vaccine 01/04/2025 Medical Devices Not on file Insurance LOCATED [facility]IN [facility] Care Teams Chief Fundraising Officer Relationship Specialty Start Date End Date Storm Guevara MD PCP - General Family Medicine 08/01/23
--- OUTSIDE RECORDS SUMMARY | 2025-01-27 15:48 | XMS_ITS | CCD ---
Author Organization [facility] Care Team Providers Care Copy And Print Associate Name Role Phone DR COSTA GUEVARA Attending Unavailable DR COSTA GUEVARA Consulting Unavailable DR COSTA GUEVARA Admitting Unavailable MD Costa Guevara Primary Care Provider [phone] DO Bassem Lopez Emergency Provider DO Arturo Dolan Admit Provider DO Arturo Dolan Attending Provider MD Costa Guevara Primary Care Provider [phone] KENDRICK Mckinney Emergency Provider [phone] MD Costa Guevara Primary Care Provider [phone] MD Costa Guevara Attending Provider MD Costa Guevara Referring Provider [phone] MD Costa Guevara Primary Care Provider [phone] DO Bassem Lopez Emergency Provider Bullimore, Shyann E Admitting Unavailable Bullimore, Shyann E Attending Unavailable Costa Guevara Primary Care Unavailable Costa Guevara Primary Care Unavailable Costa Guevara Attending Unavailable Costa Guevara Referring Unavailable Costa Guevara Admitting Unavailable [place] Consulting Unavailable Costa Guevara Primary Care Unavailable Arturo Dolan Admitting Unavailcolten e Arturo Dolan Attending UnavailDelvis Márquez Consulting Unavailable Mony Orozco Consulting Unavailable Tejas [...] Unavailable Costa Guevara MD Primary Care Provider [phone] JANUSZ CAT Attending Unavailable NEGRO TORRES Attending Unavailable JANUSZ CAT Referring Unavailable JANUSZ CAT Referring Unavailable JANUSZ CAT Referring Unavailable NEGRO TORRES Attending Unavailable NEGRO TORRES Attending Unavailable JANUSZ CAT Admitting Unavailable JANUSZ CAT Attending Unavailable NEGRO TORRES Attending Unavailable Medications [...] by mouth every six hours Hydrocodone-Acetaminop hen ([place]) 5-325 mg tablet Discontinued 1 TAB PO [...] Range Facility Office Visiton 10-21-2024 Follow-up visit [id number] Hua Ray 1965 Date Provider Department Center 10/21/2024 NEGRO OLMSTEAD Family History Problem Relation Age of Onset Stroke Mother Family Status - Relation Status Age at Mother Father Alive Level of Service:42465 [place] OFFICE/OUTPATIENT ESTABLISHED MOD MDM 30 MIN Reason for Visit and Comments: Atrial Fibrillation [80] Normal [facility] Office Visiton 04-15-2024 Follow-up visit [id number] Hua Ray 1965 Date Provider Department Center 04/15/2024 166NEGRO MERIDA Family History Problem Relation Age of Onset Stroke Mother Family Status - Relation Status Age at Mother Level of Service:76746 [place] OFFICE/OUTPATIENT ESTABLISHED MOD MDM 30 MIN Reason for Visit and Comments: Atrial Fibrillation [80] Normal [facility] Follow-Upon 02-26-2024 Follow-Up [id number] Hua Ray H 1965 Date Provider Department Center 02/26/2024 166NEGRO MERIDA Family History Problem Relation Age of Onset Stroke Mother Family Status - Relation Status Age at Mother Level of Service:64252 [place] OFFICE/OUTPATIENT ESTABLISHED MOD MDM 30 MIN Reason for Visit and Comments: Atrial Fibrillation [80] Normal [facility] Telephoneon 02-06-2024 Telephone [id number] Hua Ray 1965 Date Provider Department Center 02/06/2024 1987-YOVANI YEE [facility] [place] [facility] Family History Problem Relation Age of Onset Stroke Mother Family Status - Relation Status Age at Mother Reason for Visit and Comments: week f/u post ablation [Other] [facility] Anesthesiaon 01-29-2024 Anesthesia [id number] Hua Ray H 1965 Date Provider Department Center 01/29/[id number], TAYL*[facility] [place] [facility] Family History Problem Relation Age of Onset Stroke Mother Family Status - Relation Status Age at Mother Normal [facility] HPon 01-29-2024 [facility] Electrophysiology Consult Note Reason for visit: Afib [...] fasciotomy 2003, hypertension He recently presented to [facility] for pneumonia, was found to be [...] this done because he was admitted to [facility] for wound infection. Eliquis was stopped [...] on file Intimate Partner Violence: Unknown (06/28/2023) [place] Safety & Environment Fear of Current or [...] of e (more content not included)... Normal [facility] NURSNOTEon 01-29-2024 NURSNOTE Pt complaining that it feels like there is something in his right eye, nurse flushed the eye and placed cool compress on it. The eye was red and tearing up RN called anesthesia and they came to bedside to assess pt. Orders being placed for eye drops. Normal [facility] NURSNOTE Family at bedside RN reviewed discharge and gave copy. Normal [facility] POCT GLUCOSE METER UNSOLICIT ED RESULTSon 01-29-2024 Glucose [Mass/Vol] 103 mg/dL Normal 70-[address] [facility] Comment on above: Order Comment: Waive d Testing in the ED is performed under the ED CLIA certificate #[id number]. Result Comment: ngro jennifer Performed By: #### L [id number] ####[facility] (BEAKER)[address] [place] [address] PROTIME-INRon 01-29-2024 INR IN PPP BY COAGULATION ASSAY 1.13 High 0.90-1.10 [facility] Comment on above: Result Comment: ACCC P [...] CHEST 1995;108:231S-246S. Performed By: #### L [id number] ####[facility] ([facility])[address] [place] [address] PROTHROMBIN TIME (PT) IN PPP BY COAGULATION ASSAY 14.5 Seconds Normal 12.3-14.8 [facility] Comment on above: Performed By: #### L [id number] ####[facility] ([facility])[address] [place] [address] Prep for Procedureon 024 Prep for Procedure [id number] Hua Ray H 1965 [facility] Provider Department Center 01/29/20241986-YOVANI YEE [facility] [place] [facility] Family History Problem Relation Age of Onset Stroke Mother Family Status - Relation Status Age at Mother Normal [facility] Office Visiton 01-14-2024 Follow-up visit [id number] Hua Ray 1965 [facility] Provider Department Center 01/14/2024 241-JANUSZ CAT [facility] Family History Problem Relation Age of Onset Stroke Mother Family Status - Relation Status Age at Mother Level of Service:54153 [place] OFFICE/OUTPATIENT ESTABLISHED HIGH MDM 40 MIN Normal [facility] Prep for Procedureon 024 Prep for Procedure [id number] Hua Ray H 1965 M Date Provider Department Center 12/11/20231986-YOVANI YEE [facility] [place] [facility] Family History Problem Relation Age of Onset Stroke Mother Family Status - Relation Status Age at Mother Normal [facility] Office Visiton 12-03-2023 Follow-up visit [id number] Hua Ray 1965 M Date Provider Department Center 12/03/2023 NEGRO OLMSTEAD [facility] Family History Problem Relation Age of Onset Stroke Mother Family Status - Relation Status Age at Mother Level of Service:56767 [place] OFFICE/OUTPATIENT ESTABLISHED MOD MDM 30 MIN Reason for Visit and Comments: Atrial Fibrillation [80] Normal [facility] US venous duplex LE RTon US venous duplex LE RT [facility] [place] [address] Ultrasound Report Signed Patient: Tejas Ray MR#: [id number] 0 : 1965 Acct:[id number] Age/Sex: 58 / M ADM Date: 12/02/23 [...] Jonathan Rodriguez MD12/02/2023 2:14 PM Dictation Location: [place] [address] Tech: Yohana Whitley Transcribed By: DARLING 12/02/23 141 Dictated By: Jonathan Rodriguez MD 12/02/231413 Signed By: 12/02/23 141 Normal [facility] Multiple labson 07-31-2023 [facility] Wound culture surgical deep includes gram stainon 07-31-2023 [facility] US venous duplex LE RTon US venous duplex LE RT [facility] Main [place] [address] [place] [address] Ultrasound Report Signed Patient: Tejas Ray MR#: [id number] 0 : 1965 Acct:[id number] Age/Sex: 58 / M ADM Date: 05/28/23 [...] Kulwinder Ma M.D.05/29/2023 9:08 AM Dictation Location: [place] [address] Tech: Kendra Chaves Transcribed By: DARLING 05/29/23 0908 Dictated By: Kulwinder Ma MD 05/29/23 0907 Signed By: 05/29/23 0908 Normal [facility] Activated partial thrombopla stin time (aPTT) in platelet poor plasma by coagulation aOrdered By: Edwin Mckinney on 05-28-2023 aPTT Coag (PPP) [Time] 35.7 s 25.1-36.5 [facility] Comment on above: A hematocrit value g reater than 55% may lead to inaccurate results in coagulation testing. Patients having hematocrit values >55% require a special collection tube for coagulation studies. Please contact the laboratory at [phone] for redraw instructions. Alanine aminotransferase [En zymatic activity/volume] in Serum or PlasmaOrdered By: Edwin Mckinney on 05-28-2023 ALT [Catalytic activity/Vol] 29 U/L Normal 7-52 [facility] Comment on above: Performed By: #### P TT, HEPATIC, BMP, PT #### [place] [address] [place] Albumin [Mass/volume] in Ser um or Plasma by Bromocresol green (BCG) dye binding methoOrdered By: Edwin Mckinney on 05-28-2023 Albumin BCG dye [Mass/Vol] 4.3 g/dL 3.5-5.7 [facility] Alkaline phosphatase [Enzyma tic activity/volume] in Serum or PlasmaOrdered By: Edwin Mckinney on 05-28-2023 ALP [Catalytic activity/Vol] 73 U/L Normal 34-104 [facility] Comment on above: Performed By: #### P TT, HEPATIC, BMP, PT #### [facility] [address] [place] [address] [place] Aspartate aminotransferase [ Enzymatic activity/volume] in Serum or PlasmaOrdered By: Edwin Mckinney on 05-28-2023 AST [Catalytic activity/Vol] 18 U/L Normal 13-39 [facility] Comment on above: Performed By: #### P TT, HEPATIC, BMP, PT #### [address] Automated basophil %Ordered By: Edwin Mckinney on 05-28-2023 Basophils/100 WBC (Bld) 0.6 % Normal . [facility] Comment on above: Performed By: #### C BC #### [address] Automated basophil countOrde red By: Edwin Mckinney on 05-28-2023 Basophils (Bld) [#/Vol] 0.1 10*3/uL Normal 0.0-0.2 [facility] Comment on above: Result Comment: PERF ORMED BY: [place] [address] PATHOLOGIST BSW ROBERTO OCAMPO M.D. Performed By: #### C BC #### [address] Automated blood monocyte cou ntOrdered By: Edwin Mckinney on 05-28-2023 Monocytes (Bld) [#/Vol] 1.1 10*3/uL High 0.0-0.8 [facility] Comment on above: Performed By: #### C BC #### [address] Automated eosinophil %Ordere d By: Edwin Mckinney on 05-28-2023 Eosinophils/100 WBC (Bld) 2.1 % Normal . [facility] Comment on above: Performed By: #### C BC #### [address] Automated eosinophil countOr dered By: Edwin Mckinney on 05-28-2023 Eosinophils (Bld) [#/Vol] 0.3 10*3/uL Normal 0.0-0.45 [facility] Comment on above: Performed By: #### C BC #### [address] Automated monocyte %Ordered By: Edwin Mckinney on 05-28-2023 Monocytes/100 WBC (Bld) 8.7 % Normal . [facility] Comment on above: Performed By: #### C BC #### [address] Automated neutrophil %Ordere d By: Edwinjian Mckinney on 05-28-2023 Neutrophils/100 WBC (Bld) 74.0 % Normal . [facility] Comment on above: Performed By: #### C BC #### [address] Basic Metabolic Panelon 05-07 Creatinine Clr Calc Pharmacy 73.58 Normal [facility] Comment on above: Result Comment: PERF ORMED BY: [place] [address] PATHOLOGIST BSW ROBERTO OCAMPO M.D. Performed By: #### P TT, HEPATIC, BMP, PT #### [address] GFR/1.73 sq M.predicted MDRD (S/P/Bld) [Vol rate/Area] 57.540 mL/min/{1.73_m2} Normal [facility] Comment on above: Performed By: #### P TT, HEPATIC, BMP, PT #### [address] Bilirubin.direct [Mass/volum e] in Serum or PlasmaOrdered By: Edwin Mckinney on 05-28-2023 Bilirubin.direct [Mass/Vol] 0.20 mg/dL 0.03-0.18 [facility] Bilirubin.total [Mass/volume ] in Serum or PlasmaOrdered By: Edwin Mckinney on 05-28-2023 Bilirubin [Mass/Vol] 1.0 mg/dL Normal 0.3-1.0 [facility] Comment on above: Performed By: #### P TT, HEPATIC, BMP, PT #### [facility] [address] [place] [address] [place] Calcium [Mass/volume] in Ser um or PlasmaOrdered By: Edwin Mckinney on 05-28-2023 Calcium [Mass/Vol] 9.2 mg/dL Normal 8.6-10.3 [facility] Comment on above: Performed By: #### P TT, HEPATIC, BMP, PT #### [address] Carbon dioxide, total [Moles /volume] in Serum or PlasmaOrdered By: Edwin Mckinney on 05-28-2023 CO2 [Moles/Vol] 30.9 mmol/L Normal 21.0-31.0 [facility] Comment on above: Performed By: #### P TT, HEPATIC, BMP, PT #### [facility] [address] [place] [address] [place] Chloride [Moles/volume] in S rafy or PlasmaOrdered By: Edwin Mckinney on 05-28-2023 Chloride [Moles/Vol] 102 mmol/L Normal 98-107 [facility] Comment on above: Performed By: #### P TT, HEPATIC, BMP, PT #### [place] [address] [place] Complete Blood Count Auto Di ffon 05-28-2023 Mean Corpuscular HGB Conc 33.5 g/dL Normal 32.5-35.6 [facility] Comment on above: Performed By: #### C BC #### [address] Monocytes/100 WBC (Bld) 21.69 % High 0.00-20.00 [facility] Comment on above: Result Comment: For adults in ED, MDW > 20.0 may be associated with a higher risk of sepsis during the first 12 hrs of hospital admission Performed By: #### C BC #### [facility] [address] NRBC% 0.1 /100{WBC} Normal 0-0.5 [facility] Comment on above: Performed By: #### C BC #### [address] Creatinine [Mass/volume] in Serum or PlasmaOrdered By: Edwin Mckinney on 05-28-2023 Creatinine [Mass/Vol] 1.40 mg/dL High 0.70-1.30 [facility] Comment on above: Performed By: #### P TT, HEPATIC, BMP, PT #### [address] ECG 12 lead ECGon 05-28-2023 ECG 12 lead ECG [facility] Main [place] [address] [place] [address] Electrocardiograph Report Signed Patient: Tejas Ray MR#: [id number] 0 : 1965 Acct:[id number] Age/Sex: 58 / M ADM Date: 05/28/23 Loc: ER Room: Type: [facility] ER Attending Dr: Ordering Provider: Edwin [...] was found Confirmed by KENIA WILSON DO ([id number]) on 05/28/2023 3:02:52 PM Referred By: Electronically Signed By:KENIA WILSON DO Transcribed By: MUS Signed By Kenia Wilson DO 05/28 1503 Normal [facility] Erythrocyte distribution wid th [Ratio] by Automated countOrdered By: Edwin Mckinney on 05-28-2023 Erythrocyte distribution width (RBC) [Ratio] 14.0 % Normal 12.0-14.8 [facility] Comment on above: Performed By: #### C BC #### [facility] [address] [place] [address] Erythrocytes [#/volume] in B lood by Automated countOrdered By: Edwin Mckinney on 05-28-2023 RBC (Bld) [#/Vol] 4.32 10*6/uL Normal 3.90-5.60 [facility] Comment on above: Performed By: #### C BC #### [facility] [address] [place] [address] Glucose [Mass/volume] in Ser um or PlasmaOrdered By: Edwin Mckinney on 05-28-2023 Glucose [Mass/Vol] 97 mg/dL Normal 70-100 [facility] Comment on above: ADA recommended refe rence rangeRandom Glucose Reference Range is dependent on time and content of last meal. Glucose of more than 200 mg/dL in a nonstressed, ambulatory subject supports the diagnosis of Diabetes Mellitus. Result Comment: [place] Glucose Reference Range is dependent on time and content of last meal. Glucose of more than 200 mg/dL in a nonstressed, ambulatory subject supports the diagnosis of Diabetes Mellitus. ADA recommended reference range Performed By: #### P TT, HEPATIC, BMP, PT #### [facility] [address] [place] [address] [place] Hematocrit [Volume Fraction] of Blood by Automated countOrdered By: Edwin Mckinney on 05-28-2023 Hematocrit (Bld) [Volume fraction] 42.1 % Normal 38.8-50.0 [facility] Comment on above: Performed By: #### C BC #### [address] Hemoglobin [Mass/volume] in BloodOrdered By: Edwin Mckinney on 05-28-2023 Hemoglobin (Bld) [Mass/Vol] 14.1 g/dL Normal 13.0-17.0 [facility] Comment on above: Performed By: #### C BC #### [facility] [address] Hepatic Panelon 05-28-2023 Albumin [Mass/Vol] 4.3 g/dL Normal 3.5-5.7 [facility] Comment on above: Performed By: #### P TT, HEPATIC, BMP, PT #### [address] Bilirubin,Indirect 0.8 mg/dL Normal [facility] Comment on above: Performed By: #### P TT, HEPATIC, BMP, PT #### [address] Bilirubin.indirect [Mass/Vol] 0.20 mg/dL High 0.03-0.18 [facility] Comment on above: Performed By: #### P TT, HEPATIC, BMP, PT #### [address] INR in Platelet poor plasma by Coagulation assayOrdered By: Edwin Mckinney on 05-28-2023 INR Coag (PPP) [Relative time] 1.4 {INR} Normal [facility] Comment on above: INR Therapeutic Rang [...] #### P TT, HEPATIC, BMP, PT #### [address] Leukocytes [#/volume] correc isaiah for nucleated erythrocytes in Blood by Automated counOrdered By: Edwin Mckinney on 05-28-2023 WBC corrected for nucl RBC Auto (Bld) [#/Vol] 12.5 10*3/uL 4.1-10.5 [facility] Leukocytes [#/volume] in Blo od by Automated countOrdered By: Edwin Mckinney on 05-28-2023 WBC (Bld) [#/Vol] 12.5 10*3/uL High 4.1-10.5 [facility] Comment on above: Performed By: #### C BC #### [address] Lymphocytes [#/volume] in Bl ood by Automated countOrdered By: Edwin Mckinney on 05-28-2023 Lymphocytes (Bld) [#/Vol] 1.8 10*3/uL Normal 1.00-4.8 [facility] Comment on above: Performed By: #### C BC #### [address] Lymphocytes/100 leukocytes i n Blood by Automated countOrdered By: Edwin Mckinney on 05-28-2023 Lymphocytes/100 WBC (Bld) 14.6 % Normal . [facility] Comment on above: Performed By: #### C BC #### [place] [address] [place] MCH [Entitic mass] by Automa isaiah countOrdered By: Edwin Mckinney on 05-28-2023 MCH (RBC) [Entitic mass] 32.6 pg Normal 27.5-35.2 [facility] Comment on above: Performed By: #### C BC #### [address] MCHC Auto (RBC) [Mass/Vol]Or dered By: Edwin Mckinney on 05-28-2023 MCHC (RBC) [Mass/Vol] 33.5 g/dL 32.5-35.6 [facility] MCV [Entitic volume] by Auto mated countOrdered By: Edwin Mckinney on 05-28-2023 MCV (RBC) [Entitic vol] 97.3 fL Normal 83.5-101 [facility] Comment on above: Performed By: #### C BC #### [facility] [address] [place] [address] Monocyte distribution width [Entitic volume] in Blood by AutomatedOrdered By: Edwin Mckinney on 05-28-2023 Monocyte distribution width Auto (Bld) [Entitic vol] 21.69 % 0.00-20.00 [facility] Comment on above: For adults in ED, MD W > 20.0 may be associated with a higher risk of sepsis during the first 12 hrs of hospital admission Neutrophils [#/volume] in Bl ood by Automated countOrdered By: Edwin Mckinney on 05-28-2023 Neutrophils (Bld) [#/Vol] 9.2 10*3/uL High 1.8-7.7 [facility] Comment on above: Performed By: #### C BC #### [facility] [address] [place] [address] No Panel InformationOrdered By: Edwin Mckinney on 05-28-2023 Estimated GFR (CKD-EPI) 57.540 mL/Min [facility] Creatinine Clearance (Chem 73.58 [facility] Nucleated erythrocytes [Pres ence] in Blood by Automated countOrdered By: Edwin Mckinney on 05-28-2023 Nucleated RBC Auto Ql (Bld) 0.1 /100{WBC} 0-0.5 [facility] Partial Thromboplastin Timeo n 05-28-2023 aPTT Coag (Bld) [Time] 35.7 s Normal 25.1-36.5 [facility] Comment on above: Result Comment: A he matocrit value greater than 55% may lead to inaccurate results in coagulation testing. Patients having hematocrit values >55% require a special collection tube for coagulation studies. Please contact the laboratory at [phone] for redraw instructions. PERFORMED BY: [place] [address] PATHOLOGIST BSW ROBERTO OCAMPO M.D. Performed By: #### P TT, HEPATIC, BMP, PT #### [address] Platelet mean volume [Entiti c volume] in Blood by Automated countOrdered By: Edwin Mckinney on 05-28-2023 Platelet mean volume (Bld) [Entitic vol] 9.3 fL Normal 6.6-10.1 [facility] Comment on above: Performed By: #### C BC #### [address] Platelets [#/volume] in Bloo d by Automated countOrdered By: Edwin Mckinney on 05-28-2023 Platelets (Bld) [#/Vol] 296 10*3/uL Normal 150-450 [facility] Comment on above: Performed By: #### C BC #### [address] Potassium [Moles/volume] in Serum or PlasmaOrdered By: Edwin Mckinney on 05-28-2023 Potassium [Moles/Vol] 4.1 mmol/L Normal 3.5-5.1 [facility] Comment on above: Performed By: #### P TT, HEPATIC, BMP, PT #### [address] Protein [Mass/volume] in Ser um or PlasmaOrdered By: Edwin Mckinney on 05-28-2023 Protein [Mass/Vol] 8.5 g/dL Normal 6.4-8.9 [facility] Comment on above: Performed By: #### P TT, HEPATIC, BMP, PT #### [address] Prothrombin time (PT)Ordered By: Edwin Mckinney on 05-28-2023 PT Coag (PPP) [Time] 16.2 s High 9.0-12.9 [facility] Comment on above: A hematocrit value g reater than 55% may lead to inaccurate results in coagulation testing. Patients having hematocrit values >55% require a special collection tube for coagulation studies. Please contact the laboratory at [phone] for redraw instructions. Result Comment: A he matocrit value greater than 55% may lead to inaccurate results in coagulation testing. Patients having hematocrit values >55% require a special collection tube for coagulation studies. Please contact the laboratory at [phone] for redraw instructions. Performed By: #### P TT, HEPATIC, BMP, PT #### [address] Serum globulin measurement b y calculation (mass/volume)Ordered By: Edwin Mckinney on 05-28-2023 Globulin (S) [Mass/Vol] 4.2 g/dL [facility] Comment on above: Performed By: #### P TT, HEPATIC, BMP, PT #### [facility] [address] [place] [address] Serum or plasma albumin/glob ulin mass ratioOrdered By: Edwin Mckinney on 05-28-2023 Albumin/Globulin [Mass ratio] 1.0 {ratio} [facility] Comment on above: Performed By: #### P TT, HEPATIC, BMP, PT #### [address] Serum or plasma anion gap de terminationOrdered By: Edwin Mckinney on 05-28-2023 Anion gap [Moles/Vol] 10.2 mmol/L Normal 6.0-15.0 [facility] Comment on above: Performed By: #### P TT, HEPATIC, BMP, PT #### [address] Serum or plasma non-glucuron idated bilirubin measurement (mass/volume)Ordered By: Edwin Mckinney on 05-28-2023 Bilirubin.indirect [Mass/Vol] 0.8 mg/dL [facility] Sodium [Moles/volume] in Ser um or PlasmaOrdered By: Edwin Mckinney on 05-28-2023 Sodium [Moles/Vol] 139 mmol/L Normal 136-145 [facility] Comment on above: Performed By: #### P TT, HEPATIC, BMP, PT #### [facility] [address] Urea nitrogen [Mass/volume] in Serum or PlasmaOrdered By: Edwin Mckinney on 05-28-2023 Urea nitrogen [Mass/Vol] 24 mg/dL Normal 7-25 [facility] Comment on above: Performed By: #### P TT, HEPATIC, BMP, PT #### [facility] [address] [place] [id number] [place] XR chest 1V portableon 05-28 XR chest 1V portable [facility] [place] [address] XRay Report Signed Patient: Tejas Ray MR#: [id number] 0 : 1965 Acct:[id number] Age/Sex: 58 / M ADM Date: 05/28/23 Loc: ER Room: Type: [facility] ER Attending Dr: Copies to: Edwin [...] Kulwinder Miller M.D.05/28/2023 2:32 PM Dictation Location: [place] [address] Transcribed By: [facility] 05/28/23 1432 Dictated By: Kulwinder Miller DO 05/28/23 1432 Signed By: 05/28/23 1432 Normal [facility] XR foot RT min 3V*on 024 XR foot RT min 3V* [facility] [place] [address] XRay Report Signed Patient: Tejas Ray MR#: [id number] 0 : 1965 Acct:[id number] Age/Sex: 58 / M ADM Date: 05/28/23 Loc: ER Room: Type: [facility] ER Attending Dr: Copies to: Edwin [...] Kulwinder Miller M.D.05/28/2023 2:56 PM Dictation Location: [place] [address] Transcribed By: [facility] 05/28/23 1456 Dictated By: Kulwinder Miller DO 05/28/23 1453 Signed By: 05/28/23 1456 Normal [facility] Basic Metabolic Panelon 05-07 Anion gap [Moles/Vol] 10.9 mmol/L Normal 6.0-15.0 [facility] Comment on above: Performed By: #### B PATRICIA, CBC #### [place] [address] [place] Calcium [Mass/Vol] 8.7 mg/dL Normal 8.6-10.3 [facility] Comment on above: Performed By: #### B MP, CBC #### [address] Chloride [Moles/Vol] 106 mmol/L Normal 98-107 [facility] Comment on above: Performed By: #### B MP, CBC #### [place] [address] [place] CO2 [Moles/Vol] 25.9 mmol/L Normal 21.0-31.0 [facility] Comment on above: Performed By: #### B MP, CBC #### [address] Creatinine [Mass/Vol] 1.40 mg/dL High 0.70-1.30 [facility] Comment on above: Performed By: #### B MP, CBC #### [address] Creatinine Clr Calc Pharmacy 76.19 Normal [facility] Comment on above: Result Comment: PERF ORMED BY: [place] [address] PATHOLOGIST BSW ROBERTO OCAMPO M.D. Performed By: #### B MP, CBC #### [address] GFR/1.73 sq M.predicted MDRD (S/P/Bld) [Vol rate/Area] 57.540 mL/min/{1.73_m2} Normal [facility] Comment on above: Performed By: #### B MP, CBC #### [address] Glucose [Mass/Vol] 95 mg/dL Normal 70-100 [facility] Comment on above: Result Comment: [place] Glucose Reference Range is dependent on time and content of last meal. Glucose of more than 200 mg/dL in a nonstressed, ambulatory subject supports the diagnosis of Diabetes Mellitus. ADA recommended reference range Performed By: #### B MP, CBC #### [address] Potassium [Moles/Vol] 3.8 mmol/L Normal 3.5-5.1 [facility] Comment on above: Performed By: #### B MP, CBC #### [address] Sodium [Moles/Vol] 139 mmol/L Normal 136-145 [facility] Comment on above: Performed By: #### B MP, CBC #### [address] Urea nitrogen [Mass/Vol] 32 mg/dL High 7-25 [facility] Comment on above: Performed By: #### B MP, CBC #### [address] Complete Blood Count Auto Di ffon 05-27-2023 Basophils (Bld) [#/Vol] 0.1 10*3/uL Normal 0.0-0.2 [facility] Comment on above: Result Comment: PERF ORMED BY: [place] [address] PATHOLOGIST BSW ROBERTO OCAMPO M.D. Performed By: #### B MP, CBC #### [address] Basophils/100 WBC (Bld) 0.8 % Normal . [facility] Comment on above: Performed By: #### B MP, CBC #### [address] Eosinophils (Bld) [#/Vol] 0.1 10*3/uL Normal 0.0-0.45 [facility] Comment on above: Performed By: #### B MP, CBC #### [address] Eosinophils/100 WBC (Bld) 0.8 % Normal . [facility] Comment on above: Performed By: #### B MP, CBC #### [address] Erythrocyte distribution width (RBC) [Ratio] 14.3 % Normal 12.0-14.8 [facility] Comment on above: Performed By: #### B MP, CBC #### [address] Hematocrit (Bld) [Volume fraction] 39.1 % Normal 38.8-50.0 [facility] Comment on above: Performed By: #### B MP, CBC #### [address] Hemoglobin (Bld) [Mass/Vol] 13.1 g/dL Normal 13.0-17.0 [facility] Comment on above: Performed By: #### B MP, CBC #### [address] Lymphocytes (Bld) [#/Vol] 3.2 10*3/uL Normal 1.00-4.8 [facility] Comment on above: Performed By: #### B MP, CBC #### [address] Lymphocytes/100 WBC (Bld) 27.1 % Normal . [facility] Comment on above: Performed By: #### B MP, CBC #### [address] MCH (RBC) [Entitic mass] 32.8 pg Normal 27.5-35.2 [facility] Comment on above: Performed By: #### B MP, CBC #### [address] MCV (RBC) [Entitic vol] 97.9 fL Normal 83.5-101 [facility] Comment on above: Performed By: #### B MP, CBC #### [address] Mean Corpuscular HGB Conc 33.5 g/dL Normal 32.5-35.6 [facility] Comment on above: Performed By: #### B MP, CBC #### [address] Monocytes (Bld) [#/Vol] 1.0 10*3/uL High 0.0-0.8 [facility] Comment on above: Performed By: #### B MP, CBC #### [address] Monocytes/100 WBC (Bld) 8.8 % Normal . [facility] Comment on above: Performed By: #### B MP, CBC #### [address] Neutrophils (Bld) [#/Vol] 7.3 10*3/uL Normal 1.8-7.7 [facility] Comment on above: Performed By: #### B MP, CBC #### [address] Neutrophils/100 WBC (Bld) 62.5 % Normal . [facility] Comment on above: Performed By: #### B MP, CBC #### [address] NRBC% 0.1 /100{WBC} Normal 0-0.5 [facility] Comment on above: Performed By: #### B MP, CBC #### [address] Platelet mean volume (Bld) [Entitic vol] 9.2 fL Normal 6.6-10.1 [facility] Comment on above: Performed By: #### B MP, CBC #### [address] Platelets (Bld) [#/Vol] 235 10*3/uL Normal 150-450 [facility] Comment on above: Performed By: #### B MP, CBC #### [address] RBC (Bld) [#/Vol] 4.00 10*6/uL Normal 3.90-5.60 [facility] Comment on above: Performed By: #### B MP, CBC #### [address] WBC (Bld) [#/Vol] 11.7 10*3/uL High 4.1-10.5 [facility] Comment on above: Performed By: #### B MP, CBC #### [address] Basic Metabolic Panelon 05-07 Anion gap [Moles/Vol] 11.7 mmol/L Normal 6.0-15.0 [facility] Comment on above: Performed By: #### P TT, HEPATIC, BMP, PT #### [address] Calcium [Mass/Vol] 8.8 mg/dL Normal 8.6-10.3 [facility] Comment on above: Performed By: #### P TT, HEPATIC, BMP, PT #### [facility] [address] [place] [address] [place] Chloride [Moles/Vol] 108 mmol/L High 98-107 [facility] Comment on above: Performed By: #### P TT, HEPATIC, BMP, PT #### [place] [address] [place] CO2 [Moles/Vol] 24.4 mmol/L Normal 21.0-31.0 [facility] Comment on above: Performed By: #### P TT, HEPATIC, BMP, PT #### [address] Creatinine [Mass/Vol] 1.34 mg/dL High 0.70-1.30 [facility] Comment on above: Performed By: #### P TT, HEPATIC, BMP, PT #### [place] [address] [place] Creatinine Clr Calc Pharmacy 81.59 Normal [facility] Comment on above: Result Comment: PERF ORMED BY: [place] [address] PATHOLOGIST BSW ROBERTO OCAMPO M.D. Performed By: #### P TT, HEPATIC, BMP, PT #### [address] GFR/1.73 sq M.predicted MDRD (S/P/Bld) [Vol rate/Area] mL/min/{1.73_m2} Normal [facility] Comment on above: Performed By: #### P TT, HEPATIC, BMP, PT #### [address] Glucose [Mass/Vol] 115 mg/dL High 70-100 [facility] Comment on above: Result Comment: [place] Glucose Reference Range is dependent on time and content of last meal. Glucose of more than 200 mg/dL in a nonstressed, ambulatory subject supports the diagnosis of Diabetes Mellitus. ADA recommended reference range Performed By: #### P TT, HEPATIC, BMP, PT #### [address] Potassium [Moles/Vol] 4.1 mmol/L Normal 3.5-5.1 [facility] Comment on above: Performed By: #### P TT, HEPATIC, BMP, PT #### [address] Sodium [Moles/Vol] 140 mmol/L Normal 136-145 [facility] Comment on above: Performed By: #### P TT, HEPATIC, BMP, PT #### [address] Urea nitrogen [Mass/Vol] 33 mg/dL High 7-25 [facility] Comment on above: Performed By: #### P TT, HEPATIC, BMP, PT #### [address] Blood Cultureon 05-26-2023 Bacteria identified Cx Nom (Bld) NO GROWTH 5 DAYS PERFORMED BY: [place] [address] PATHOLOGIST BSW ROBERTO OCAMPO M.D. Normal [facility] Comment on above: Performed By: #### C UBLD #### [address] Complete Blood Count Auto Di ffon 05-26-2023 Basophils (Bld) [#/Vol] 0.0 10*3/uL Normal 0.0-0.2 [facility] Comment on above: Result Comment: PERF ORMED BY: [place] [address] PATHOLOGIST BSW ROBERTO OCAMPO M.D. Performed By: #### P TT, HEPATIC, BMP, PT #### [address] Basophils/100 WBC (Bld) 0.1 % Normal . [facility] Comment on above: Performed By: #### P TT, HEPATIC, BMP, PT #### [address] Eosinophils (Bld) [#/Vol] 0.0 10*3/uL Normal 0.0-0.45 [facility] Comment on above: Performed By: #### P TT, HEPATIC, BMP, PT #### [address] Eosinophils/100 WBC (Bld) 0.0 % Normal . [facility] Comment on above: Performed By: #### P TT, HEPATIC, BMP, PT #### [address] Erythrocyte distribution width (RBC) [Ratio] 14.3 % Normal 12.0-14.8 [facility] Comment on above: Performed By: #### P TT, HEPATIC, BMP, PT #### [address] Hematocrit (Bld) [Volume fraction] 36.9 % Low 38.8-50.0 [facility] Comment on above: Performed By: #### P TT, HEPATIC, BMP, PT #### [address] Hemoglobin (Bld) [Mass/Vol] 12.1 g/dL Low 13.0-17.0 [facility] Comment on above: Performed By: #### P TT, HEPATIC, BMP, PT #### [address] Lymphocytes (Bld) [#/Vol] 2.0 10*3/uL Normal 1.00-4.8 [facility] Comment on above: Performed By: #### P TT, HEPATIC, BMP, PT #### [address] Lymphocytes/100 WBC (Bld) 11.4 % Normal . [facility] Comment on above: Performed By: #### P TT, HEPATIC, BMP, PT #### [address] MCH (RBC) [Entitic mass] 32.2 pg Normal 27.5-35.2 [facility] Comment on above: Performed By: #### P TT, HEPATIC, BMP, PT #### [address] MCV (RBC) [Entitic vol] 98.1 fL Normal 83.5-101 [facility] Comment on above: Performed By: #### P TT, HEPATIC, BMP, PT #### [address] Mean Corpuscular HGB Conc 32.9 g/dL Normal 32.5-35.6 [facility] Comment on above: Performed By: #### P TT, HEPATIC, BMP, PT #### [address] Monocytes (Bld) [#/Vol] 1.4 10*3/uL High 0.0-0.8 [facility] Comment on above: Performed By: #### P TT, HEPATIC, BMP, PT #### [address] Monocytes/100 WBC (Bld) 7.9 % Normal . [facility] Comment on above: Performed By: #### P TT, HEPATIC, BMP, PT #### [address] Neutrophils (Bld) [#/Vol] 14.0 10*3/uL High 1.8-7.7 [facility] Comment on above: Performed By: #### P TT, HEPATIC, BMP, PT #### [address] Neutrophils/100 WBC (Bld) 80.6 % Normal . [facility] Comment on above: Performed By: #### P TT, HEPATIC, BMP, PT #### [address] NRBC% 0.1 /100{WBC} Normal 0-0.5 [facility] Comment on above: Performed By: #### P TT, HEPATIC, BMP, PT #### [place] [address] Platelet mean volume (Bld) [Entitic vol] 9.4 fL Normal 6.6-10.1 [facility] Comment on above: Performed By: #### P TT, HEPATIC, BMP, PT #### [address] Platelets (Bld) [#/Vol] 233 10*3/uL Normal 150-450 [facility] Comment on above: Performed By: #### P TT, HEPATIC, BMP, PT #### [address] RBC (Bld) [#/Vol] 3.77 10*6/uL Low 3.90-5.60 [facility] Comment on above: Performed By: #### P TT, HEPATIC, BMP, PT #### [address] WBC (Bld) [#/Vol] 17.3 10*3/uL High 4.1-10.5 [facility] Comment on above: Performed By: #### P TT, HEPATIC, BMP, PT #### [address] Basic Metabolic Panelon 05-07 Anion gap [Moles/Vol] 12.1 mmol/L Normal 6.0-15.0 [facility] Comment on above: Performed By: #### B MP, CBC #### [address] Calcium [Mass/Vol] 8.6 mg/dL Normal 8.6-10.3 [facility] Comment on above: Performed By: #### B MP, CBC #### [place] [address] [place] Chloride [Moles/Vol] 107 mmol/L Normal 98-107 [facility] Comment on above: Performed By: #### B MP, CBC #### [address] CO2 [Moles/Vol] 21.6 mmol/L Normal 21.0-31.0 [facility] Comment on above: Performed By: #### B MP, CBC #### [address] Creatinine [Mass/Vol] 1.29 mg/dL Normal 0.70-1.30 [facility] Comment on above: Performed By: #### B MP, CBC #### [place] [address] [place] Creatinine Clr Calc Pharmacy 84.75 Normal [facility] Comment on above: Performed By: #### B MP, CBC #### [place] [address] [place] GFR/1.73 sq M.predicted MDRD (S/P/Bld) [Vol rate/Area] mL/min/{1.73_m2} Normal [facility] Comment on above: Performed By: #### B MP, CBC #### [address] Glucose [Mass/Vol] 194 mg/dL High 70-100 [facility] Comment on above: Result Comment: [facility] Glucose Reference Range is dependent on time and content of last meal. Glucose of more than 200 mg/dL in a nonstressed, ambulatory subject supports the diagnosis of Diabetes Mellitus. ADA recommended reference range Performed By: #### B MP, CBC #### [address] Potassium [Moles/Vol] 3.7 mmol/L Normal 3.5-5.1 [facility] Comment on above: Performed By: #### B MP, CBC #### [place] [address] [place] Sodium [Moles/Vol] 137 mmol/L Normal 136-145 [facility] Comment on above: Performed By: #### B MP, CBC #### [address] Urea nitrogen [Mass/Vol] 27 mg/dL High 7-25 [facility] Comment on above: Performed By: #### B MP, CBC #### [address] Complete Blood Count Auto Di ffon 05-25-2023 Basophils (Bld) [#/Vol] 0.0 10*3/uL Normal 0.0-0.2 [facility] Comment on above: Result Comment: PERF ORMED BY: [place] [address] PATHOLOGIST BSW ROBERTO OCAMPO M.D. Performed By: #### B MP, CBC #### [address] Basophils/100 WBC (Bld) 0.2 % Normal . [facility] Comment on above: Performed By: #### B MP, CBC #### [address] Eosinophils (Bld) [#/Vol] 0.0 10*3/uL Normal 0.0-0.45 [facility] Comment on above: Performed By: #### B MP, CBC #### [address] Eosinophils/100 WBC (Bld) 0.0 % Normal . [facility] Comment on above: Performed By: #### B MP, CBC #### [address] Erythrocyte distribution width (RBC) [Ratio] 14.3 % Normal 12.0-14.8 [facility] Comment on above: Performed By: #### B MP, CBC #### [address] Hematocrit (Bld) [Volume fraction] 37.6 % Low 38.8-50.0 [facility] Comment on above: Performed By: #### B MP, CBC #### [address] Hemoglobin (Bld) [Mass/Vol] 12.7 g/dL Low 13.0-17.0 [facility] Comment on above: Performed By: #### B MP, CBC #### [address] Lymphocytes (Bld) [#/Vol] 0.9 10*3/uL Low 1.00-4.8 [facility] Comment on above: Performed By: #### B MP, CBC #### [address] Lymphocytes/100 WBC (Bld) 5.4 % Normal . [facility] Comment on above: Performed By: #### B MP, CBC #### [address] MCH (RBC) [Entitic mass] 33.1 pg Normal 27.5-35.2 [facility] Comment on above: Performed By: #### B MP, CBC #### [address] MCV (RBC) [Entitic vol] 97.6 fL Normal 83.5-101 [facility] Comment on above: Performed By: #### B MP, CBC #### [address] Mean Corpuscular HGB Conc 33.9 g/dL Normal 32.5-35.6 [facility] Comment on above: Performed By: #### B MP, CBC #### [address] Monocytes (Bld) [#/Vol] 0.6 10*3/uL Normal 0.0-0.8 [facility] Comment on above: Performed By: #### B MP, CBC #### [address] Monocytes/100 WBC (Bld) 3.6 % Normal . [facility] Comment on above: Performed By: #### B MP, CBC #### [address] Neutrophils (Bld) [#/Vol] 15.9 10*3/uL High 1.8-7.7 [facility] Comment on above: Performed By: #### B MP, CBC #### [address] Neutrophils/100 WBC (Bld) 90.8 % Normal . [facility] Comment on above: Performed By: #### B MP, CBC #### [address] NRBC% 0.0 /100{WBC} Normal 0-0.5 [facility] Comment on above: Performed By: #### B MP, CBC #### [address] Platelet mean volume (Bld) [Entitic vol] 9.3 fL Normal 6.6-10.1 [facility] Comment on above: Performed By: #### B MP, CBC #### [address] Platelets (Bld) [#/Vol] 207 10*3/uL Normal 150-450 [facility] Comment on above: Performed By: #### B MP, CBC #### [address] RBC (Bld) [#/Vol] 3.85 10*6/uL Low 3.90-5.60 [facility] Comment on above: Performed By: #### B MP, CBC #### [address] WBC (Bld) [#/Vol] 17.5 10*3/uL High 4.1-10.5 [facility] Comment on above: Performed By: #### B MP, CBC #### [address] Creatine Kinaseon 05-25-2023 CK [Catalytic activity/Vol] 198 U/L Normal 30-223 [facility] Comment on above: Performed By: #### B MP, CBC #### [address] ECG 12 lead ECGon 05-25-2023 ECG 12 lead ECG [facility] [place] [address] Electrocardiograph Report Signed Patient: Tejas Ray MR#: [id number] 0 : 1965 Acct:[id number] Age/Sex: 58 / M ADM Date: 05/24/23 Loc: Room: [address] [place] [address] Type: ADM IN Attending Dr: Arturo Dolan [...] PAZ MD Transcribed By: MUS Signed By Lnih Paz MD 0 05/25/23 1440 Normal [facility] echo transthoracicon [facility] echo transthoracic [facility] [place] [address] Echocardiogram Signed Patient: Tejas Ray MR#: [id number] 0 : 1965 Acct:[id number] Age/Sex: 58 / M ADM Date: 05/24/23 Loc: Room: [address] [place] [address] Type: ADM IN Attending Dr: Arturo Dolan DO Ordering Provider: Arturo Dolan DO Date of Service: 05/24/23 [facility] echo transthoracic: new A-Fib with RVR Copies [...] Linh Paz MD 05/25/23 1150 Normal [facility] Magnesiumon 05-25-2023 Magnesium [Mass/Vol] 1.9 mg/dL Normal 1.9-2.7 [facility] Comment on above: Result Comment: PERF ORMED BY: [place] [address] PATHOLOGIST BSW ROBERTO OCAMPO M.D. Performed By: #### B MP, CBC #### [address] Troponin I High Sensitivityo n 05-25-2023 Troponin I High Sensitivity 7.0 pg/mL Normal 0.0-20.0 [facility] Comment on above: Result Comment: PERF ORMED BY: [place] [address] PATHOLOGIST BSW ROBERTO OCAMPO M.D. Performed By: #### B MP, CBC #### [address] A1C with Estimated Average G luon 05-24-2023 Glucose [Mass/Vol] 131 mg/dL Normal [facility] Comment on above: Result Comment: PERF ORMED BY: [place] [address] PATHOLOGIST BSW ROBERTO OCAMPO M.D. Performed By: #### P TT, HEPATIC, BMP, PT #### [address] HbA1c (Bld) [Mass fraction] 6.2 % High 4.3-5.6 [facility] Comment on above: Result Comment: Incr eased risk for diabetes: 5.7 - 6.4 diabetes: >6.4 glycemic control for adults with diabetes: <7.0 Performed By: #### P TT, HEPATIC, BMP, PT #### [place] [address] [place] Activated partial thrombopla stin time (aPTT) in platelet poor plasma by coagulation aOrdered By: Ria Talamantes on 05-24-2023 aPTT Coag (PPP) [Time] 27.5 s 25.1-36.5 [facility] Comment on above: A hematocrit value g reater than 55% may lead to inaccurate results in coagulation testing. Patients having hematocrit values >55% require a special collection tube for coagulation studies. Please contact the laboratory at [phone] for redraw instructions. Aerobic Cultureon 05-24-2023 Aerobic Culture Result Tab Codes Moderate Normal Respiratory [place] 2 Days Gram Stain Result 1+ Gram Positive Cocci in Clusters 1+ Gram Negative Bacilli 1+ White Blood Cells 1+ Epithelial Cells * This is a corrected result. * A prior result that was reported as final has been changed. PERFORMED BY: [place] [address] PATHOLOGIST BSW ROBERTO OCAMPO M.D. Normal [facility] Comment on above: Performed By: #### P TT, HEPATIC, BMP, PT #### [facility] [address] [place] [address] Automated basophil %Ordered By: Ria Talamantes on 05-24-2023 Basophils/100 WBC (Bld) 0.5 % Normal . [facility] Comment on above: Performed By: #### B MP, CBC #### [facility] [address] [place] [address] Automated basophil countOrde red By: Ria Talamantes on 05-24-2023 Basophils (Bld) [#/Vol] 0.1 10*3/uL Normal 0.0-0.2 [facility] Comment on above: Result Comment: PERF ORMED BY: [address] [place] [address] PATHOLOGIST BSW ROBERTO OCAMPO M.D. Performed By: #### B MP, CBC #### [address] Automated blood monocyte cou ntOrdered By: Ria Talamantes on 05-24-2023 Monocytes (Bld) [#/Vol] 0.9 10*3/uL High 0.0-0.8 [facility] Comment on above: Performed By: #### B MP, CBC #### [address] Automated eosinophil %Ordere d By: Ria Charlesrosemarie on 05-24-2023 Eosinophils/100 WBC (Bld) 0.9 % Normal . [facility] Comment on above: Performed By: #### B MP, CBC #### [address] Automated eosinophil countOr dered By: Ria Charlesrosemarie on 05-24-2023 Eosinophils (Bld) [#/Vol] 0.1 10*3/uL Normal 0.0-0.45 [facility] Comment on above: Performed By: #### B MP, CBC #### [address] Automated erythrocytes count in urine sediment (number/area)Ordered By: Ria Talamantes on 05-24-2023 RBC Auto (Urine sed) [#/Area] None seen [HPF] 0-4 [facility] Automated leukocytes count i n urine sediment (number/area)Ordered By: Ria Talamantes on 05-24-2023 WBC Auto (Urine sed) [#/Area] None seen [HPF] 0-4 [facility] Automated monocyte %Ordered By: Ria Charlesrosemarie on 05-24-2023 Monocytes/100 WBC (Bld) 5.7 % Normal . [facility] Comment on above: Performed By: #### B MP, CBC #### [address] Automated neutrophil %Ordere d By: Ria Charlesrosemarie on 05-24-2023 Neutrophils/100 WBC (Bld) 86.6 % Normal . [facility] Comment on above: Performed By: #### B MP, CBC #### [address] Automated urine color determ inationOrdered By: Ria Talamantes on 05-24-2023 Color (U) Yellow Normal Yellow [facility] Comment on above: Order Comment: Name Collection Type:: Clean-Voided Midstream Performed By: #### P TT, HEPATIC, BMP, PT #### [address] BNP ser/plasOrdered By: Cuca Talamantes on 05-24-2023 Natriuretic peptide B (Bld) [Mass/Vol] 221.0 pg/mL High 5-100 [facility] Comment on above: Result Comment: PERF ORMED BY: [place] [address] PATHOLOGIST BSW ROBERTO OCAMPO M.D. Performed By: #### B MP, CBC #### [address] Basic Metabolic Panelon 05-06 Creatinine Clr Calc Pharmacy 79.52 Normal [facility] Comment on above: Result Comment: PERF ORMED BY: [place] [address] PATHOLOGIST BSW ROBERTO OCAMPO M.D. Performed By: #### B MP, CBC #### [address] GFR/1.73 sq M.predicted MDRD (S/P/Bld) [Vol rate/Area] 58.542 mL/min/{1.73_m2} Normal [facility] Comment on above: Performed By: #### B MP, CBC #### [address] Bilirubin Test strip Ql (U)O rdered By: Ria Talamantes on 05-24-2023 Bilirubin Ql (U) Negative Negative [facility] Blood Cultureon 05-24-2023 Bacteria identified Cx Nom (Bld) NO GROWTH 5 DAYS PERFORMED BY: [address] [place] [address] PATHOLOGIST BSW ROBERTO Rajan [facility] Comment on above: Performed By: #### P TT, HEPATIC, BMP, PT #### [facility] [address] [place] [address] [facility] Bacteria identified Cx Nom (Bld) Gram [...] culture Not detected Group A (Streptococcus pyogenes) [id number] Not detected Group B Strep (Streptococcus agalactiae) [...] at (more content not included)... Normal [facility] Comment on above: Performed By: #### P TT, HEPATIC, BMP, PT #### [facility] [address] COVID CepheidOrdered By: Greg Talamantes on 05-24-2023 SARS-CoV-2 (COVID-19) Ab IA Ql Negative Negative [facility] Comment on above: This is a duplicate Cepheid Xpert Xpress CoV-2/Flu/RSV Plus RNA by RT-PCR result to be used for statistical tracking purpose only. SARS-CoV-2 (COVID-19) RNA PRITESH+probe Ql (Unsp spec) [facility] COVID-19 / Flu A/B / RSV [...] or Cepheid Disclaimer revoked sooner. PERFORMED BY: [place] [address] PATHOLOGIST BSW ROBERTO OCAMPO M.D. Normal [facility] Comment on above: Performed By: #### P TT, HEPATIC, BMP, PT #### [address] angio chest PE protocolon 05-24-2023 CT angio chest PE protocol [facility] [place] [address] CT Scan Report Signed Patient: Tejas Ray MR#: [id number] 0 : 1965 Acct:[id number] Age/Sex: 58 / M ADM Date: 05/24/23 Loc: ER Room: Type: [facility] ER Attending Dr: Copies to: Rai Talamantes APRN Ordering Provider: Ria Talamantes APRN [...] Kulwinder Miller M.D.05/24/2023 5:17 PM Dictation Location: [place] [address] Transcribed By: [facility] 05/24/231716 Dictated By: Kulwinder Miller DO 05/24/231711 Signed By: 05/24/231716 Normal [facility] Calcium [Mass/volume] in Ser um or PlasmaOrdered By: Ria Talamantes on 05-24-2023 Calcium [Mass/Vol] 9.2 mg/dL Normal 8.6-10.3 [facility] Comment on above: Performed By: #### B MP, CBC #### [facility] [address] Carbon dioxide, total [Moles /volume] in Serum or PlasmaOrdered By: Ria Talamantes on 05-24-2023 CO2 [Moles/Vol] 22.1 mmol/L Normal 21.0-31.0 [facility] Comment on above: Performed By: #### B MP, CBC #### [facility] [address] Cepheid COVID PCR Negativeon 05-24-2023 SARS-CoV-2 (COVID-19) RNA PRITESH+probe Ql (Unsp spec) Negative Normal Negative [facility] Comment on above: Result Comment: This is a duplicate Cepheid Xpert Xpress CoV-2/Flu/RSV Plus RNA by RT-PCR result to be used for statistical tracking purpose only. PERFORMED BY: [place] [address] PATHOLOGIST BSW ROBERTO OCAMPO M.D. Performed By: #### P TT, HEPATIC, BMP, PT #### [place] [address] [place] Chloride [Moles/volume] in S rafy or PlasmaOrdered By: Ria Talamantes on 05-24-2023 Chloride [Moles/Vol] 105 mmol/L Normal 98-107 [facility] Comment on above: Performed By: #### B MP, CBC #### [address] Complete Blood Count Auto Di ffon 05-24-2023 Mean Corpuscular HGB Conc 33.8 g/dL Normal 32.5-35.6 [facility] Comment on above: Performed By: #### B MP, CBC #### [place] [address] [place] Monocytes/100 WBC (Bld) 20.36 % High 0.00-20.00 [facility] Comment on above: Result Comment: For adults in ED, MDW > 20.0 may be associated with a higher risk of sepsis during the first 12 hrs of hospital admission Performed By: #### B MP, CBC #### [address] NRBC% 0.0 /100{WBC} Normal 0-0.5 [facility] Comment on above: Performed By: #### B MP, CBC #### [place] [address] [place] Creatine Kinaseon 05-24-2023 CK [Catalytic activity/Vol] 251 U/L High 30-223 [facility] Comment on above: Performed By: #### P TT, HEPATIC, BMP, PT #### [place] [address] [place] Creatinine [Mass/volume] in Serum or PlasmaOrdered By: Ria Talamantes on 05-24-2023 Creatinine [Mass/Vol] 1.38 mg/dL High 0.70-1.30 [facility] Comment on above: Performed By: #### B MP, CBC #### [address] D-Dimer High Sensitivityon 0 05-24-2023 D-Dimer High Sensitivity 296 ng/mL High 0-243 [facility] Comment on above: [...] coagulation studies. Please contact the laboratory at [phone] for redraw instructions. PERFORMED BY: [place] [address] PATHOLOGIST BSW ROBERTO OCAMPO M.D. Performed By: #### P TT, HEPATIC, BMP, PT #### [address] Dipstick and Microscopicon 0 05-24-2023 Appearance (U) Clear Normal Clear [facility] Comment on above: Order Comment: Name Collection Type:: Clean-Voided Midstream Performed By: #### P TT, HEPATIC, BMP, PT #### [address] Bacteria,Urine None Seen Normal None Seen [facility] Comment on above: Order Comment: Name Collection Type:: Clean-Voided Midstream Performed By: #### P TT, HEPATIC, BMP, PT #### [address] Bilirubin,Urine Negative Normal Negative [facility] Comment on above: Order Comment: Name Collection Type:: Clean-Voided Midstream Performed By: #### P TT, HEPATIC, BMP, PT #### [facility] [address] [place] [id number] [place] Glucose Ql (U) Normal Normal Normal [facility] Comment on above: Order Comment: Name Collection Type:: Clean-Voided Midstream Performed By: #### P TT, HEPATIC, BMP, PT #### [facility] [address] [place] [id number] [place] Hyaline Casts,Urine 0-8 Normal 0-8 [facility] Comment on above: Order Comment: Name Collection Type:: Clean-Voided Midstream Result Comment: PERF ORMED BY: [place] [address] PATHOLOGIST BSW ROBERTO OCAMPO M.D. Performed By: #### P TT, HEPATIC, BMP, PT #### [place] [id number] [place] Ketones Ql (U) Negative Normal Negative [facility] Comment on above: Order Comment: Name Collection Type:: Clean-Voided Midstream Performed By: #### P TT, HEPATIC, BMP, PT #### [facility] [address] [place] [id number] [place] Leukocyte esterase Test strip Ql (U) Negative Normal Negative [facility] Comment on above: Order Comment: Name Collection Type:: Clean-Voided Midstream Performed By: #### P TT, HEPATIC, BMP, PT #### [place] [address] [place] Nitrite,Urine Negative Normal Negative [facility] Comment on above: Order Comment: Name Collection Type:: Clean-Voided Midstream Performed By: #### P TT, HEPATIC, BMP, PT #### [facility] [address] [place] [id number] [place] Occult Blood,Urine Negative Normal Negative [facility] Comment on above: Order Comment: Name Collection Type:: Clean-Voided Midstream Result Comment: PERF ORMED BY: [place] [address] PATHOLOGIST BSW ROBERTO OCAMPO M.D. Performed By: #### P TT, HEPATIC, BMP, PT #### [address] RBC,Urine None Seen Normal 0-4 [facility] Comment on above: Order Comment: Name Collection Type:: Clean-Voided Midstream Performed By: #### P TT, HEPATIC, BMP, PT #### [address] Specificy [place],Urine 1.021 Normal 1.001-1.03 0 [facility] Comment on above: Order Comment: Name Collection Type:: Clean-Voided Midstream Performed By: #### P TT, HEPATIC, BMP, PT #### [address] Squamous Epithelial Cell,Urine None Seen Normal 0-2 [facility] Comment on above: Order Comment: Name Collection Type:: Clean-Voided Midstream Performed By: #### P TT, HEPATIC, BMP, PT #### [address] Urobilinogen,Urine Normal Normal Normal [facility] Comment on above: Order Comment: Name Collection Type:: Clean-Voided Midstream Performed By: #### P TT, HEPATIC, BMP, PT #### [address] WBC,Urine None Seen Normal 0-4 [facility] Comment on above: Order Comment: Name Collection Type:: Clean-Voided Midstream Performed By: #### P TT, HEPATIC, BMP, PT #### [address] ECG 12 lead ECGon 05-24-2023 ECG 12 lead ECG [facility] [place] [address] Electrocardiograph Report Signed Patient: Tejas Ray MR#: [id number] 0 : 1965 Acct:[id number] Age/Sex: 58 / M ADM Date: 05/24/23 Loc: Room: [address] [place] [address] Type: ADM IN Attending Dr: Arturo Dolan [...] Nino Garrido MD 05/24/23 193 Normal [facility] Erythrocyte distribution wid th [Ratio] by Automated countOrdered By: iRa Talamantes on 05-24-2023 Erythrocyte distribution width (RBC) [Ratio] 13.9 % Normal 12.0-14.8 [facility] Comment on above: Performed By: #### B MP, CBC #### [facility] [address] Erythrocytes [#/volume] in B lood by Automated countOrdered By: Ria Talamantes on 05-24-2023 RBC (Bld) [#/Vol] 4.47 10*6/uL Normal 3.90-5.60 [facility] Comment on above: Performed By: #### B MP, CBC #### [facility] [address] Fibrin D-dimer [Presence] in Platelet poor plasma by Latex agglutinationOrdered By: Ria Talamantes on 05-24-2023 Fibrin D-dimer LA Ql (PPP) 296 ng/mL 0-243 [facility] Comment on above: The reference range [...] coagulation studies. Please contact the laboratory at [phone] for redraw instructions. Free T4 (Free Thyroxine)on 0 05-24-2023 Free T4 [Mass/Vol] 0.88 ng/dL Normal 0.61-1.12 [facility] Comment on above: Performed By: #### P TT, HEPATIC, BMP, PT #### [facility] [address] [place] [id number] [place] Glucose [Mass/volume] in Ser um or PlasmaOrdered By: Ria Talamantes on 05-24-2023 Glucose [Mass/Vol] 110 mg/dL High 70-100 [facility] Comment on above: ADA recommended refe rence rangeRandom Glucose Reference Range is dependent on time and content of last meal. Glucose of more than 200 mg/dL in a nonstressed, ambulatory subject supports the diagnosis of Diabetes Mellitus. Result Comment: [place] Glucose Reference Range is dependent on time and content of last meal. Glucose of more than 200 mg/dL in a nonstressed, ambulatory subject supports the diagnosis of Diabetes Mellitus. ADA recommended reference range Performed By: #### B MP, CBC #### [facility] [address] [place] [address] [place] Gram Stainon 05-24-2023 Microscopic observation Gram stain Nom (Unsp spec) Gram Stain Result 1+ Gram Positive Cocci in Clusters 1+ Gram Negative Bacilli 1+ White Blood Cells 1+ Epithelial Cells * This is a corrected result. * A prior result that was reported as final has been changed. PERFORMED BY: [place] [address] PATHOLOGIST BSW ROBERTO OCAMPO M.D. Normal [facility] Comment on above: Performed By: #### P TT, HEPATIC, BMP, PT #### [address] Hematocrit [Volume Fraction] of Blood by Automated countOrdered By: Ria Talamantes on 05-24-2023 Hematocrit (Bld) [Volume fraction] 43.2 % Normal 38.8-50.0 [facility] Comment on above: Performed By: #### B MP, CBC #### [address] Hemoglobin [Mass/volume] in BloodOrdered By: Ria Talamantes on 05-24-2023 Hemoglobin (Bld) [Mass/Vol] 14.6 g/dL Normal 13.0-17.0 [facility] Comment on above: Performed By: #### B MP, CBC #### [address] INR in Platelet poor plasma by Coagulation assayOrdered By: Ria Talamantes on 05-24-2023 INR Coag (PPP) [Relative time] 1.1 {INR} Normal [facility] Comment on above: INR Therapeutic Rang [...] #### P TT, HEPATIC, BMP, PT #### [facility] [address] Ketones Auto test strip (U) [Mass/Vol]Ordered By: Ria Talamantes on 05-24-2023 Ketones (U) [Mass/Vol] Negative Negative [facility] Vitaliy Thyroxine (T4)on T4 [Mass/Vol] 6.9 ug/dL Normal 4.5-12.0 [facility] Comment on above: Result Comment: Perf ormed at: - [facility] [address] [id number] Revenue Integrity Analyst: Edwin Nazario PhD, Phone: [phone] PERFORMED BY: [place] [address] PATHOLOGIST BSW ROBERTO OCAMPO M.D. Performed By: #### L C T4 #### [facility] , Laboratory - UrinalysisOrder ed By: Ria Talamantes on 05-24-2023 Hyaline casts LM Ql (Urine sed) 0-8 [LPF] 0-8 [facility] Lactate [Moles/volume] in Se rum or PlasmaOrdered By: Ria Talamantes on 05-24-2023 Lactate [Moles/Vol] 1.8 mmol/L Normal 0.5-2.2 [facility] Comment on above: Result Comment: PERF ORMED BY: [place] [address] PATHOLOGIST BSW ROBERTO OACMPO M.D. Performed By: #### P TT, HEPATIC, BMP, PT #### [facility] [address] [place] [address] Leukocytes [#/volume] correc isaiah for nucleated erythrocytes in Blood by Automated counOrdered By: Ria Talamantes on 05-24-2023 WBC corrected for nucl RBC Auto (Bld) [#/Vol] 15.3 10*3/uL 4.1-10.5 [facility] Leukocytes [#/volume] in Blo od by Automated countOrdered By: Ria Talamantes on 05-24-2023 WBC (Bld) [#/Vol] 15.3 10*3/uL High 4.1-10.5 [facility] Comment on above: Performed By: #### B MP, CBC #### [facility] [address] [place] [address] Lymphocytes [#/volume] in Bl ood by Automated countOrdered By: Ria Talamantes on 05-24-2023 Lymphocytes (Bld) [#/Vol] 1.0 10*3/uL Normal 1.00-4.8 [facility] Comment on above: Performed By: #### B MP, CBC #### [facility] [address] [place] [address] Lymphocytes/100 leukocytes i n Blood by Automated countOrdered By: Rai Talamantes on 05-24-2023 Lymphocytes/100 WBC (Bld) 6.3 % Normal . [facility] Comment on above: Performed By: #### B MP, CBC #### [facility] [address] [place] [address] MCH [Entitic mass] by Automa isaiah countOrdered By: Ria Talamantes on 05-24-2023 MCH (RBC) [Entitic mass] 32.7 pg Normal 27.5-35.2 [facility] Comment on above: Performed By: #### B MP, CBC #### [facility] [address] [place] [address] MCHC Auto (RBC) [Mass/Vol]Or dered By: Ria Talamantes on 05-24-2023 MCHC (RBC) [Mass/Vol] 33.8 g/dL 32.5-35.6 [facility] MCV [Entitic volume] by Auto mated countOrdered By: Ria Talamantes on 05-24-2023 MCV (RBC) [Entitic vol] 96.7 fL Normal 83.5-101 [facility] Comment on above: Performed By: #### B MP, CBC #### [facility] [address] Magnesium [Mass/volume] in S rafy or PlasmaOrdered By: Ria Talamantes on 05-24-2023 Magnesium [Mass/Vol] 1.9 mg/dL Normal 1.9-2.7 [facility] Comment on above: Result Comment: PERF ORMED BY: [place] [address] PATHOLOGIST BSW ROBERTO OCAMPO M.D. Performed By: #### B MP, CBC #### [facility] [address] Monocyte distribution width [Entitic volume] in Blood by AutomatedOrdered By: Ria Talamantes on 05-24-2023 Monocyte distribution width Auto (Bld) [Entitic vol] 20.36 % 0.00-20.00 [facility] Comment on above: For adults in ED, MD W > 20.0 may be associated with a higher risk of sepsis during the first 12 hrs of hospital admission Neutrophils [#/volume] in Bl ood by Automated countOrdered By: Ria Talamantes on 05-24-2023 Neutrophils (Bld) [#/Vol] 13.3 10*3/uL High 1.8-7.7 [facility] Comment on above: Performed By: #### B MP, CBC #### [facility] [address] Nitrite Test strip Ql (U)Ord ered By: Ria Talamantes on 05-24-2023 Nitrite Ql (U) Negative Negative [facility] No Panel InformationOrdered By: Ria Talamantes on 05-24-2023 Estimated GFR (CKD-EPI) 58.542 mL/Min [facility] Creatinine Clearance (Chem 79.52 [facility] Nucleated erythrocytes [Pres ence] in Blood by Automated countOrdered By: Ria Talamantes on 05-24-2023 Nucleated RBC Auto Ql (Bld) 0.0 /100{WBC} 0-0.5 [facility] Partial Thromboplastin Timeo n 05-24-2023 aPTT Coag (Bld) [Time] 27.5 s Normal 25.1-36.5 [facility] Comment on above: Result Comment: A he matocrit value greater than 55% may lead to inaccurate results in coagulation testing. Patients having hematocrit values >55% require a special collection tube for coagulation studies. Please contact the laboratory at [phone] for redraw instructions. PERFORMED BY: [place] [address] PATHOLOGIST BSW ROBERTO OCAMPO M.D. Performed By: #### P TT, HEPATIC, BMP, PT #### [address] Platelet mean volume [Entiti c volume] in Blood by Automated countOrdered By: Ria Talamantes on 05-24-2023 Platelet mean volume (Bld) [Entitic vol] 9.6 fL Normal 6.6-10.1 [facility] Comment on above: Performed By: #### B MP, CBC #### [address] Platelets [#/volume] in Bloo d by Automated countOrdered By: Ria Talamantes on 05-24-2023 Platelets (Bld) [#/Vol] 246 10*3/uL Normal 150-450 [facility] Comment on above: Performed By: #### B MP, CBC #### [address] Potassium [Moles/volume] in Serum or PlasmaOrdered By: Ria Talamantes on 05-24-2023 Potassium [Moles/Vol] 4.1 mmol/L Normal 3.5-5.1 [facility] Comment on above: Performed By: #### B MP, CBC #### [address] Prothrombin time (PT)Ordered By: Ria Talamantes on 05-24-2023 PT Coag (PPP) [Time] 12.8 s Normal 9.0-12.9 [facility] Comment on above: A hematocrit value g reater than 55% may lead to inaccurate results in coagulation testing. Patients having hematocrit values >55% require a special collection tube for coagulation studies. Please contact the laboratory at [phone] for redraw instructions. Result Comment: A he matocrit value greater than 55% may lead to inaccurate results in coagulation testing. Patients having hematocrit values >55% require a special collection tube for coagulation studies. Please contact the laboratory at [phone] for redraw instructions. Performed By: #### P TT, HEPATIC, BMP, PT #### [address] Serum or plasma anion gap de terminationOrdered By: Ria Talamantes on 05-24-2023 Anion gap [Moles/Vol] 13.0 mmol/L Normal 6.0-15.0 [facility] Comment on above: Performed By: #### B MP, CBC #### [address] Sodium [Moles/volume] in Ser um or PlasmaOrdered By: Ria Talamantes on 05-24-2023 Sodium [Moles/Vol] 136 mmol/L Normal 136-145 [facility] Comment on above: Performed By: #### B MP, CBC #### [address] Specific gravity Auto test s trip (U) [Rel density]Ordered By: Ria Talamantes on 05-24-2023 Specific gravity (U) [Rel density] 1.021 1.001-1.03 0 [facility] Squamous epithelial cells de tection in urine sediment by light microscopyOrdered By: Ria Talamantes on 05-24-2023 Epithelial cells.squamous LM Ql (Urine sed) None seen [HPF] 0-2 [facility] Thyroid Stimulating Hormoneo n 05-24-2023 TSH Qn 1.10 m[IU]/L Normal 0.45-5.33 [facility] Comment on above: Result Comment: PERF ORMED BY: [place] [address] PATHOLOGIST BSW ROBERTO OCAMPO M.D. Performed By: #### P TT, HEPATIC, BMP, PT #### [facility] [address] [place] [id number] [place] Troponin I High Sensitivityo n 05-24-2023 Troponin I High Sensitivity 11.5 pg/mL Normal 0.0-20.0 [facility] Comment on above: Result Comment: PERF ORMED BY: [place] [address] PATHOLOGIST BSW ROBERTO OCAMPO M.D. Performed By: #### P TT, HEPATIC, BMP, PT #### [address] Troponin I High Sensitivity 8.9 pg/mL Normal 0.0-20.0 [facility] Comment on above: Result Comment: PERF ORMED BY: [place] [address] PATHOLOGIST BSW ROBERTO OCAMPO M.D. Performed By: #### B MP, CBC #### [address] Troponin I.cardiac [Mass/vol ume] in Serum or Plasma by Detection limit <= 0.01 ng/Ordered By: Ria Talamantes on 05-24-2023 Troponin I.cardiac DL <= 0.01 ng/mL [Mass/Vol] 8.9 pg/mL 0.0-20.0 [facility] Urea nitrogen [Mass/volume] in Serum or PlasmaOrdered By: Ria Talamantes on 05-24-2023 Urea nitrogen [Mass/Vol] 23 mg/dL Normal 7-25 [facility] Comment on above: Performed By: #### B MP, CBC #### [facility] [address] [place] [address] Urine bacteria detection by automated methodOrdered By: Ria Talamantes on 05-24-2023 Bacteria Auto Ql (U) None seen None Seen [facility] Urine clarity by refractomet ry automatedOrdered By: Ria Talamantes on 05-24-2023 Clarity Refractometry automated (U) Clear Clear [facility] Urine glucose measurement by automated test strip (mass/volume)Ordered By: Ria Talamantes on 05-24-2023 Glucose Auto test strip (U) [Mass/Vol] Normal mg/dL Normal [facility] Urine hemoglobin detection b y automated test stripOrdered By: Ria Talamantes on 05-24-2023 Hemoglobin Auto test strip Ql (U) Negative Negative [facility] Urine leukocyte esterase det ection by automated test stripOrdered By: Ria Talamantes on 05-24-2023 Leukocyte esterase Auto test strip Ql (U) Negative Negative [facility] Urine pH measurement by auto mated test stripOrdered By: Ria Talamantes on 05-24-2023 pH (U) 5.5 [pH] Normal 5.0-9.0 [facility] Comment on above: Order Comment: Name Collection Type:: Clean-Voided Midstream Performed By: #### P TT, HEPATIC, BMP, PT #### [facility] [address] Urine protein measurement by automated test strip (mass/volume)Ordered By: Ria Talamantes on 05-24-2023 Protein (U) [Mass/Vol] 30 mg/dL High Negative [facility] Comment on above: Order Comment: Name Collection Type:: Clean-Voided Midstream Performed By: #### P TT, HEPATIC, BMP, PT #### [facility] [address] [place] [address] Urobilinogen Auto test strip (U) [Mass/Vol]Ordered By: Ria Talamantes on 05-24-2023 Urobilinogen (U) [Mass/Vol] Normal mg/dL Normal [facility] CBC AUTO DIFFon 03-10-2021 BASO # 0.1 103/ul Normal 0.0-0.1 [facility] Comment on above: Performed By: #### C BC #### [facility] [address] [place] [address] [address] Christina Heredia Basophils/100 WBC (Bld) 0.7 % Normal 0.2-2.0 [facility] Comment on above: Performed By: #### C BC #### [facility] [address] [place] [address] Dr. Christina Heredia EO # 0.2 103/ul Normal 0.0-0.7 [facility] Comment on above: Performed By: #### C BC #### [facility] [address] [place] [address] Dr. Christina Heredia Eosinophils/100 WBC (Bld) 1.7 % Normal 0.9-7.0 [facility] Comment on above: Performed By: #### C BC #### [facility] [address] [place] [address] Dr. Christina Heredia Erythrocyte distribution width (RBC) [Ratio] 12.6 % Normal 11.0-15.0 [facility] Comment on above: Performed By: #### C BC #### [facility] [address] [place] [address] Dr. Christina Heredia Hematocrit (Bld) [Volume fraction] 43.9 % Normal 42.0-54.0 [facility] Comment on above: Performed By: #### C BC #### [facility] [address] [place] [address] Dr. Christina Heredia Hemoglobin (Bld) [Mass/Vol] 14.1 g/dL Normal 14.0-18.0 [facility] Comment on above: Performed By: #### C BC #### [facility] [address] [place] [address] Dr. Christina Heredia IG # 0.13 10e3/ul Critically high 0.00-0.03 [facility] Comment on above: Performed By: #### C BC #### [facility] [address] [place] [address] Dr. Christina Heredia IG % 1.5 % Critically high 0.0-0.5 [facility] Comment on above: Performed By: #### C BC #### [facility] [address] [place] [address] Dr. Christina Heredia LYMPH # 2.4 103/ul Normal 1.2-3.8 [facility] Comment on above: Performed By: #### C BC #### [facility] [address] [place] [address] Dr. Christina Heredia Lymphocytes/100 WBC (Bld) 27.0 % Normal 20.5-60.0 [facility] Comment on above: Performed By: #### C BC #### [facility] [address] [place] [address] Dr. Christina Heredia MANUAL DIFF REQ NO Normal [facility] Comment on above: Performed By: #### C BC #### [facility] [address] [place] [address] Dr. Christina Heredia MCH (RBC) [Entitic mass] 30.9 pg Normal 25.9-34.0 [facility] Comment on above: Performed By: #### C BC #### [facility] [address] [place] [address] Dr. Christina Heredia MCHC (RBC) [Mass/Vol] 32.1 g/dL Normal 29.9-35.2 [facility] Comment on above: Performed By: #### C BC #### [facility] [address] [place] [address] Dr. Christina Heredia MCV (RBC) [Entitic vol] 96.3 fL Critically high 80.0-94.0 [facility] Comment on above: Performed By: #### C BC #### [facility] [address] [place] [address] Dr. Christina Heredia MONO # 0.6 103/ul Normal 0.3-0.8 [facility] Comment on above: Performed By: #### C BC #### [facility] [address] [place] [address] Dr. Christina Heredia Monocytes/100 WBC (Bld) 6.4 % Normal 1.7-12.0 [facility] Comment on above: Performed By: #### C BC #### [facility] [address] [place] [address] Dr. Christina Heredia NEUT # 5.5 103/ul Normal 1.4-6.5 [facility] Comment on above: Performed By: #### C BC #### [facility] [address] [place] [address] Dr. Christina Heredia Neutrophils/100 WBC (Bld) 62.7 % Normal 43.0-75.0 [facility] Comment on above: Performed By: #### C BC #### [facility] [address] [place] [address] Dr. Christina Heredia Platelet mean volume (Bld) [Entitic vol] 10.8 fL Normal 9.5-13.5 [facility] Comment on above: Performed By: #### C BC #### [facility] [address] [place] [address] Dr. Christina Heredia PLT 251 103/ul Normal 150-450 [facility] Comment on above: Performed By: #### C BC #### [facility] [address] [place] [address] Dr. Christina Heredia RBC 4.56 106/ul Critically low 4.70-6.10 [facility] Comment on above: Performed By: #### C BC #### [facility] [address] [place] [address] Dr. Christina Heredia WBC 8.7 103/ul Normal 4.0-11.0 [facility] Comment on above: Performed By: #### C BC #### [facility] [address] [place] [address] Dr. Christina Heredia CRPon 03-10-2021 CRP [Mass/Vol] mg/L Normal <=1.0 [facility] Comment on above: Performed By: #### C RP, CMP #### [facility] [address] [place] [address] Dr. Christina Heredia MONOon 03-10-2021 Monocytes (Bld) [#/Vol] Negative Normal NEGATIVE [facility] Comment on above: Performed By: #### M CHRISTIANO #### [facility] [address] [place] [address] Dr. Christina Heredia PROF 14(COMP METB)on 021 Albumin [Mass/Vol] 3.3 g/dL Critically low 3.5-5.0 [facility] Comment on above: Performed By: #### C RP, CMP #### [facility] [address] [place] [address] Dr. Christina Heredia Albumin/Globulin [Mass ratio] 0.8 {ratio} Normal [facility] Comment on above: Performed By: #### C RP, CMP #### [facility] [address] [place] [address] Dr. Christina Heredia ALP [Catalytic activity/Vol] 64 U/L Normal 38-126 [facility] Comment on above: Performed By: #### C RP, CMP #### [facility] [address] [place] [address] Dr. Christina Heredia ALT [Catalytic activity/Vol] 42 U/L Normal 21-72 [facility] Comment on above: Performed By: #### C RP, CMP #### [facility] [address] [place] [address] Dr. Christina Heredia Anion gap [Moles/Vol] 11.4 mmol/L Normal [facility] Comment on above: Performed By: #### C RP, CMP #### [facility] [address] [place] [address] Dr. Christina Heredia AST [Catalytic activity/Vol] 18 U/L Normal 17-59 [facility] Comment on above: Performed By: #### C RP, CMP #### [facility] [address] [place] [address] Dr. Christina Heredia Bilirubin [Mass/Vol] 0.5 mg/dL Normal 0.2-1.3 [facility] Comment on above: Performed By: #### C RP, CMP #### [facility] [address] [place] [address] Dr. Christina Heredia Calcium [Mass/Vol] 8.8 mg/dL Normal 8.4-10.2 [facility] Comment on above: Performed By: #### C RP, CMP #### [facility] [address] [place] [address] Dr. Christina Heredia Chloride [Moles/Vol] 109 mmol/L Critically high 98-107 [facility] Comment on above: Performed By: #### C RP, CMP #### [facility] [address] [place] [address] Dr. Christina Heredia CO2 [Moles/Vol] 24.3 mmol/L Normal 22.0-30.0 [facility] Comment on above: Performed By: #### C RP, CMP #### [facility] [address] [address] [address] Christina Heredia Creatinine [Mass/Vol] 1.43 mg/dL Critically high 0.66-1.25 [facility] Comment on above: Performed By: #### C RP, CMP #### [facility] [address] [place] [address] Dr. Christina Heredia EGFR-AF [place] >60 Normal >=60 [facility] Comment on above: Performed By: #### C RP, CMP #### [facility] [address] [place] [address] Dr. Christina Heredia EGFR-NON AF [place] 51 mL/min/1.73m2 Critically low >=60 [facility] Comment on above: Performed By: #### C RP, CMP #### [facility] [address] [place] [address] Dr. Christina Heredia Globulin (S) [Mass/Vol] 4.1 g/dL Normal [facility] Comment on above: Performed By: #### C RP, CMP #### [facility] [address] [place] [address] Dr. Christina Heredia Glucose [Mass/Vol] 113 mg/dL Critically high 74-106 [facility] Comment on above: Performed By: #### C RP, CMP #### [facility] [address] [place] [address] Dr. Christina Heredia Potassium [Moles/Vol] 4.7 mmol/L Normal 3.4-5.0 [facility] Comment on above: Performed By: #### C RP, CMP #### [facility] [address] [place] [address] Dr. Christina Heredia Protein [Mass/Vol] 7.4 g/dL Normal 6.1-8.2 [facility] Comment on above: Performed By: #### C RP, CMP #### [facility] [address] [place] [address] Dr. Christina Heredia Sodium [Moles/Vol] 140 mmol/L Normal 137-145 [facility] Comment on above: Performed By: #### C RP, CMP #### [facility] [id number] Christina Heredia Urea nitrogen [Mass/Vol] 18.0 mg/dL Normal 9.0-20.0 [facility] Comment on above: Performed By: #### C RP, CMP #### [facility] [address] [address] [address] Christina Heredia Urea nitrogen/Creatinine [Mass ratio] 12.6 mg/mg Normal [facility] Comment on above: Performed By: #### C RP, CMP #### [facility] [id number] Christina Heredia Vital Signs Date Time Vital Sign Value Performing Clinician Faci lity 12-02-2023 12:30-0400 Diastolic blood pressure 93 mm[Hg] MD Costa Guevara Work Phone: [facility] 12-02-2023 12:30-0400 Heart rate 88 /min MD Costa Guevara Work Phone: [facility] 12-02-2023 12:30-0400 Respiratory rate 18 /min MD Costa Guevara Work Phone: [facility] 12-02-2023 12:30-0400 SaO2% (BldA) [Mass fraction] 98 % MD Costa Guevara Work Phone: [facility] 12-02-2023 12:30-0400 Systolic blood pressure 128 mm[Hg] MD Costa Guevara Work Phone: [facility] 12-02-2023 09:31-0400 Body height 167.64 cm MD Costa Guevara Work Phone: [facility] 12-02-2023 09:31-0400 Body temperature 98.2 [degF] MD Costa Guevara Work Phone: [facility] 12-02-2023 09:31-0400 Body weight 142.88 kg MD Costa Guevara Work Phone: [facility] 05-28-2023 18:00-0500 Diastolic blood pressure 82 mm[Hg] MD Costa Guevara Work Phone: [facility] 05-28-2023 18:00-0500 Heart rate 128 /min MD Costa Guevara Work Phone: [facility] 05-28-2023 18:00-0500 Respiratory rate 20 /min MD Costa Guevara Work Phone: [facility] 05-28-2023 18:00-0500 SaO2% (BldA) [Mass fraction] 94 % MD Costa Guevara Work Phone: [facility] 05-28-2023 18:00-0500 Systolic blood pressure 131 mm[Hg] MD Costa Guevara Work Phone: [facility] 05-28-2023 12:38-0500 Body height 167.64 cm MD Costa Guevara Work Phone: [facility] 05-28-2023 12:38-0500 Body temperature 98.2 [degF] MD Costa Guevara Work Phone: [facility] 05-28-2023 12:38-0500 Body weight 136.07 kg MD Costa Guevara Work Phone: [facility] 05-27-2023 12:10-0500 Heart rate 92 /min [facility] 05-27-2023 12:10-0500 Respiratory rate 20 /min [facility] 05-27-2023 09:00-0500 Body temperature 97.7 [degF] [facility] 05-27-2023 09:00-0500 Diastolic blood pressure 69 mm[Hg] [facility] 05-27-2023 09:00-0500 SaO2% (BldA) [Mass fraction] 94 % [facility] 05-27-2023 09:00-0500 Systolic blood pressure 114 mm[Hg] [facility] 05-27-2023 08:13-0500 Inhaled oxygen flow rate 1 L/min [facility] 05-27-2023 04:56-0500 Body weight 144.3 kg [facility] 05-24-2023 18:51-0500 Body height 167.64 cm [facility] 05-24-2023 18:31-0500 Diastolic blood pressure 74 mm[Hg] MD Costa Guevara Work Phone: [facility] 05-24-2023 18:31-0500 Heart rate 109 /min MD Costa Guevara Work Phone: [facility] 05-24-2023 18:31-0500 Inhaled oxygen flow rate 2 L/min MD Costa Guevara Work Phone: [facility] 05-24-2023 18:31-0500 Respiratory rate 24 /min MD Costa Guevara Work Phone: [facility] 05-24-2023 18:31-0500 SaO2% (BldA) [Mass fraction] 95 % MD Costa Guevara Work Phone: [facility] 05-24-2023 18:31-0500 Systolic blood pressure 111 mm[Hg] MD Costa Guevara Work Phone: [facility] 05-24-2023 17:09-0500 Body temperature 99.6 [degF] MD Costa Guevara Work Phone: [facility] 05-24-2023 14:35-0500 Body height 167.64 cm MD Costa Guevara Work Phone: [facility] 05-24-2023 14:35-0500 Body weight 151.2 kg MD Costa Guevara Work Phone: [facility] Encounters Encounter Date Encounter Type Care Provider Facility Start: 10-21-2024 End: 10-21-2024 ambulatory [facility] Start: 10-21-2024 End: 10-21-2024 Encounter for general adult medical examination without abnormal findings [facility] Start: 04-15-2024 End: 04-15-2024 ambulatory [facility] Start: 04-15-2024 End: 04-15-2024 Encounter for other preprocedural examination [facility] Start: 04-04-2024 End: 04-04-2024 Emergency department patient visit Shyann Jesus Facility:[facility] Start: 02-26-2024 End: 02-26-2024 ambulatory [facility] Start: 01-29-2024 ambulatory [facility] Start: 01-29-2024 End: 01-29-2024 ambulatory [facility] Start: 01-14-2024 End: 01-14-2024 ambulatory [facility] Start: 12-03-2023 End: 12-03-2023 ambulatory [facility] Start: 12-02-2023 End: 12-02-2023 Emergency department patient visit MD Costa Guevara Work Phone: [facility]Emergency Room Work Phone: Start: 08-28-2023 End: 08-28-2023 ambulatory MD Costa Guevara Work Phone: [facility] Work Phone: Start: 08-28-2023 End: 08-28-2023 Discharged Recurring MD Costa Guevara Work Phone: [facility]-Infusion Therapy - O/P Work Phone: Start: 08-20-2023 End: 08-26-2023 Telephone encounter Jacques Dorantes DO Work Phone: [facility] Start: 08-13-2023 End: 08-13-2023 Orders Only Not In System Ref Prov [facility] Start: 08-01-2023 Orders Only Not In System Ref Prov [facility] Start: 05-28-2023 End: 05-28-2023 Emergency department patient visit MD Costa Guevara Work Phone: [facility]Emergency [facility] Work Phone: Start: 05-24-2023 End: 05-27-2023 Evaluation and management of inpatient MD Costa Guevara Work Phone: [facility] [place] [facility] Work Phone: Start: 05-24-2023 Non-patient / Non-visit [facility] Work Phone: Start: 03-10-2021 End: 03-11-2021 [...] Author Start: 01-05-2024 Influenza vaccination Influenza Vaccine [facility] [employer] Start: 12-02-2023 Duplex scan of lower limb veins US venous duplex LE RT [facility] Start: 12-02-2023 US Lower extremity vein - right [facility] Start: 05-28-2023 Duplex scan of lower limb veins US venous duplex LE RT [facility] Start: 05-28-2023 US Lower extremity vein - right [facility] Start: 05-27-2023 [facility] Start: 05-24-2023 Hospital admission [facility] Start: 05-24-2023 [facility] Start: 05-24-2023 Bacteria identified in Blood by Culture [facility] Start: 2013 Administration of varicella zoster vaccine Zoster (Shingles) Vaccine (1 of 2) [facility] Start: 1982 DTaP,Tdap and Td Vaccines (1 - Tdap) DTaP,Tdap and Td Vaccines (1 - Tdap) [facility] Start: 1981 Adult BMI Screening Adult BMI Screening [facility] Start: 1975 Depression Screening Depression Screening [facility] Start: 1975 Tobacco Screening Tobacco Screening [facility] Patient Education [facility] Work Phone: Patient referral [facility] Work Phone: Immunizations Immunization Date Immunization Notes Care Provider Fa cility 05-27-2023 influenza, injectabl e, quadrivalent, preservative free [facility] 09-01-2020 COVID-19 Tha Freire (Pfizer) MD Costa Guevara Work Phone: [facility] 08-11-2020 COVID-19 Tha Freire (Pfizer) MD Costa Guevara Work Phone: [facility] 03-24-2019 tetanus toxoid, redu rene diphtheria toxoid, and acellular pertussis vaccine, adsorbed MD Costa Guevara Work Phone: [facility] Payers Date Payer Category Payer Self-pay [id number] [facility] [place] [employer] ( and others) [id number] 1965 Unknown [id number] 1961 [employer] ( and others) [id number] Unknown [id number] Unknown [id number] Unknown [id number] Unknown [id number] Unknown [id number] Social History Date Type Detail Facility Start: 05-24-2023 End: 12-02-2023 Tobacco smoking status KYIS Never smoked tobacco (finding) [facility] Start: 1965 Sex Assigned At Male F [facility] Tobacco smoking status [facility] Tobacco smoking consumption unknown [employer] [facility] Start: 1965 Sex assigned at Not on file P [employer] [facility] Gender identity Not on file [facility] 08-20-2023 to 10-21-2024 Telephone Encounter - Mary Lind - 08/20/2023 2:33 PM EDTTelephone Encounter - Mary Lind - 08/20/2023 2:33 PM EDTTelephone Encounter - Mary Lind - 08/20/2023 2:33 PM EDT Note Date & Type Note Facility 10-21-2024 Note Cardiovascular Medic [facility] SUBJECTIVE Chief Complaint Patient presents with [...] syncope. Denies bleeding issues. He works for [employer]. ---- He underwent a cardioversion 09/25/2023. [...] Essential hypertension GERD (gastroesophageal reflux disease) A-fib ([facility]) SVT (supraventricular tachycardia) Acute diastolic HF (heart failure) ([facility]) Acute pain of right foot Bacteremia due to Streptococcus pneumoniae Benign paroxysmal positional vertigo BMI 50.0-59.9, adult ([facility]) Cellulitis Dog bite Dyspnea Hyperglycemia Hypoxia Sepsis ([facility]) Prediabetes Pneumonia Morbid obesity ([facility]) Leg edema Infection, streptococcus pneumoniae Strain of calf muscle Past Medical History: Diagnosis Date Abnormal ECG Arrhythmia Atrial fibrillation ([facility]) CHF (congestive heart failure) ([facility]) Congestive heart failure ([facility]) 08/20/2023 Deep vein thrombosis ([facility]) 2003 left leg GERD (gastroesophageal reflux disease) Hiatal hernia Hypertension Persistent atrial fibrillation ([facility]) SVT (supraventricular tachycardia) Family History Problem Relation [...] General: No foc (more content not included)... [facility] 10-21-2024 Note Patient is here toda y for a 6 month follow up. Patient states he is doing well. Patient states he is doing well and has no cardiac complaints at this time. Review of Systems Constitutional: Negative. [facility] 04-15-2024 Note Patient here for 2 m [...] All other systems reviewed and are negative. [facility] 04-15-2024 Note Cardiovascular Medic [facility] SUBJECTIVE Chief Complaint Patient presents with [...] syncope. Denies bleeding issues. He works for [employer]. ---- He underwent a cardioversion 09/25/2023. [...] Essential hypertension GERD (gastroesophageal reflux disease) A-fib ([facility]) SVT (supraventricular tachycardia) ([facility]) Acute diastolic HF (heart failure) ([facility]) Acute pain of right foot Bacteremia due to Streptococcus pneumoniae Benign paroxysmal positional vertigo BMI 50.0-59.9, adult ([facility]) Cellulitis Dog bite Dyspnea Hyperglycemia Hypoxia Sepsis ([facility]) Prediabetes Pneumonia Morbid obesity ([facility]) Leg edema Infection, streptococcus pneumoniae Strain of calf muscle Past Medical History: Diagnosis Date Abnormal ECG Arrhythmia Atrial fibrillation ([facility]) CHF (congestive heart failure) ([facility]) Congestive heart failure ([facility]) 08/20/2023 Deep vein thrombosis ([facility]) 2003 left leg GERD (gastroesophageal reflux disease) Hiatal hernia Hypertension Persistent atrial fibrillation ([facility]) SVT (supraventricular tachycardia) ([facility]) Family History Problem Relation Name Age of [...] Mental Status: He (more content not included)... [facility] 04-14-2024 Note Addendum created 02/26 1218 by April Andre MD Attestation recorded in Intraprocedure, Care Path modified, Flowsheet accepted, Intraprocedure Attestations filed [facility] 02-26-2024 Note Patient here for fol low up afib ablation on 01/29/[address] Cat. Still feels ok s/p ablation. Denies chest pain, palpitations, and bleeding on Eliquis. He would like to stop amiodarone if possible. Review of Systems Cardiovascular: Positive for dyspnea on exertion and leg swelling. All other systems reviewed and are negative. [facility] 02-26-2024 Note Cardiovascular Medic in[facility] SUBJECTIVE Chief Complaint Patient presents with [...] syncope. Denies bleeding issues. He works for [employer]. ---- He underwent a cardioversion 09/25/2023. [...] Essential hypertension GERD (gastroesophageal reflux disease) A-fib ([facility]) SVT (supraventricular tachycardia) ([facility]) Acute diastolic HF (heart failure) (CMS/HCC) [...] Mood and Aff (more content not included)... [facility] 01-29-2024 Note Patient: Ramón Ray Procedure Summary Date: 01/29/24 Room / Location: [facility] SENIOR ARCHITECTURAL DESIGNER 1 EP / [facility] (Cath) Anesthesia Start: 0842 Anesthesia [...] no known notable events for this encounter. [facility] 01-29-2024 Note ATRIAL FIBRILLATION ABLATION PROCEDURE NOTE DATE OF PROCEDURE: 01/29/2024 PERFORMING PHYSICIAN: Dr. Janusz Cat REFINERY OPERATOR ASSISTANT:YANDY CONSENT: Patient NAME OF THE PROCEDURE: Pulmonary [...] fasciotomy 2003, hypertension. He recently presented to [facility] for pneumonia, was found to be [...] Coumadin ridge. Esophagus was mapped using the [employer]SOUND 3D mapping software and noted to be [...] a small subeusta (more content not included)... [facility] 01-29-2024 Note Patient: Ramón Ray Procedure Summary Date: 01/29/24 Room / Location: [facility] SENIOR ARCHITECTURAL DESIGNER 1 EP / [facility] VASCULAR LAB (Cath) Anesthesia Start: 841 Anesthesia [...] and follow verbal commands throughout transport process [facility] 01-29-2024 Note Arterial Line: Date/Time: 01/29/2024 8:20 [...] mL - 01/29/2024 8:20:00 AM Staffing Performed: resident/BUSINESS OBJECTS DEVELOPER/EDWIN Anesthesiologist: April Andre MD Resident/BUSINESS OBJECTS DEVELOPER: Daniela Jacobo MD Performed by: Daniela Jacobo MD Authorized by: April Andre MD [facility] 01-29-2024 Note Airway Date/Time: 01/29/2024 9:07 AM Urgency: elective Airway not difficult General Information and Staff Patient location during procedure: [place] Anesthesiologist: April Andre MD Resident/BUSINESS OBJECTS DEVELOPER/CAA: Daniela Jacobo MD Performed: resident/BUSINESS OBJECTS DEVELOPER/CAA Indications and Patient Condition Indications for airway [...] 1 Number of other approaches attempted: 0 [facility] 01-29-2024 Note This report has been cancelled. [facility] 01-29-2024 Note Patient: Ramón Ray Procedure Information Date/Time: 01/29/24829 Procedure: Ablation atrial fibrillation - PC APPROVED Location: [facility] SENIOR ARCHITECTURAL DESIGNER 1 EP / [facility] HV VASCULAR LAB (Cath) Providers: Janusz Cat [...] with attending and resident. Additional Equipment Requests [facility] 01-14-2024 Note [place] Electrophysiology Consult Note Reason for visit: Afib [...] fasciotomy 2003, hypertension He recently presented to [facility] for pneumonia, was found to be [...] this done because he was admitted to [facility] for wound infection. Eliquis was stopped [...] Nails: no clubb (more content not included)... [facility] 12-03-2023 Note Patient here for fol low up unsuccessful cardioversion on 09/25/[address] Cat. Still SOB w/ exertion. Denies chest pain, palpitations, lightheadedness/syncope, and bleeding on Eliquis. Review of Systems Cardiovascular: Positive for dyspnea on exertion, leg swelling and palpitations. Musculoskeletal: Positive for arthritis, back pain and joint pain. All other systems reviewed and are negative. [facility] 12-03-2023 Note Cardiovascular Medic [facility] SUBJECTIVE Chief Complaint Patient presents with [...] Essential hypertension GERD (gastroesophageal reflux disease) A-fib ([facility]) SVT (supraventricular tachycardia) ([facility]) Acute diastolic HF (heart failure) ([facility]) Acute pain of right foot Bacteremia due to Streptococcus pneumoniae Benign paroxysmal positional vertigo BMI 50.0-59.9, adult ([facility]/HCC) Cellulitis Congestive heart failure (CMS/HCC) Dog bite Dyspnea Hyperglycemia Hypoxia Sepsis (CMS/HCC) Prediabetes Pneumonia Morbid obesity (CMS/HCC) Leg edema Infection, streptococcus pneumoniae Strain of calf muscle Past Medical History: Diagnosis Date Abnormal ECG Arrhythmia Atrial fibrillation (CMS/HCC) Deep vein thrombosis ([facility]/HCC) Hypertension Family History Problem Relation Name [...] Final QTC CALCULATION(BAZETT) 09/25/2023 427 ms Final R-Mayo 09/25/2023 -59 degrees Final T Wave Mayo 09/25/2023 96 degrees Final Ventricular Rate 09/25/2023 66 BPM Final Atrial Rate 09/25/2023 66 BPM Final OK Interval 09/25/2023 258 ms Final QRS DURATION 09/25/2023 102 ms Final QT Interval 09/25/2023 406 m (more content not included)... [facility] 11-27-2023 Note This report has been cancelled. [facility] 08-20-2023 Miscellaneous Notes Tejas's charges has come back as the ID# is not correct. It is the information that we received from [facility]. Called Tejas and the number is no [...] claims were resubmitted. documented in this encounter [facility] 08-20-2023 Telephone encounter Note Tejas's charges has come back as the ID# is not correct. It is the information that we received from [facility]. Called Tejas and the number is no longer in service. Called April/'s number and the mailbox is full. I did send an SMS of our phone number. [facility] 08-20-2023 Telephone encounter Note Since we have not heard back from patient's , I called Dr Guevara's office and spoke to Christel and she is to fax me a copy of Tejas's card. [facility] 08-20-[address] Guevara's office had the same information as we did. Registration was able to get his correct ID# and the claims were resubmitted. [facility] Evaluation note Diagnosis Onset Date Atrial fibrillation with RVR acute Hypoxia acute Pneumonia acute Sepsis [facility] Work Phone: Evaluation note* Diagnosis Onset Date Resolution Status Atrial fibrillation with RVR acute Bacteremia due to Streptococcus pneumoniae acute BMI 50.0-59.9, adult acute Hyperglycemia acute Hypoxia acute Infection, streptococcus pneumoniae acute Leg edema acute Pneumonia acute Sepsis acute [facility] Work Phone: Evaluation noteNo assessment information available [facility] Work Phone: Hospital Discharge instructionsAmbulatory Orders* DME Home Medical Equipment Time Frame: 1 Day, Location: Determined By Patient Additional Instructions Wound care: - Every 2 days - left leg- clean wounds with vashe, apply skin prep to tam wound, apply silver sorb gel to wound bed and place Telfa/non-stick dressing/Large band-aid. [facility] Work Phone: InstructionsNot on filedocumented in this encounter [facility] SystemInstructionsNot on filedocumented in this encounter [facility] Summary Purpose Family History No Family [...] CREATED AUTHOR AUTHOR'S ORGANIZ ATION 04/15/2024 [facility] DATE CREATED AUTHOR AUTHOR'S ORGANIZ ATION 10/24/2024 [facility] Care Teams (unrecognized sec tion and content) [...] Active Start: J anuary 2023 Shanel Card [facility]- Other Provider Active Sta rt: [...] December 02, 2023 End: December 02, 2023 Copy And Print Associate Relationship Specialty Start Date End Date Costa Guevara MD [address] [place] [address] PCP - General Family Medicine 08/01/23 Copy And Print Associate Relationship Specialty Start Date End Date Costa Guevara MD [address] [place] [address] PCP - General Family Medicine 08/01/23 Goals [...] BE BASED ON THE PRIMARY CLINICAL RECORDS. [facility]. provides no warranty or guarantee of the accuracy or completeness of information in this document.
--- NOTE | 2025-01-27 15:52 | CA_ITS ---
Patient Name: ROB FRANK MR#: [id number] : 1965 Exam Date: 01/27/2025 Ordering Doctor: NEGRO TORRES CNP ECHOCARDIOGRAM REPORT PROCEDURE: CA ECHO DOPPLER COMPLETE INDICATIONS: Afib, HTN, Mitral regurgitation, Aortic dilatation COMPARISON: None. DESCRIPTION: COMPLETE ECHOCARDIOGRAM Real-time transthoracic echocardiography with 2D, M-mode, spectral and color flow Doppler performed. QUALITY: Technical quality was good. LEFT VENTRICLE: Normal chamber size. Moderate concentric left ventricular hypertrophy. The septum is abnormal in motion, possibly due to bundle branch block. Global left ventricular systolic function is normal. LV EF: Estimated left ventricular ejection fraction is 65-70 %. DIASTOLIC: Diastolic function is indeterminate. ATRIAL SEPTUM: LEFT ATRIUM: Mild dilatation. RIGHT ATRIUM: Mild dilatation. RIGHT VENTRICLE: Normal chamber size. Normal right ventricular systolic function. TRICUSPID VALVE: Normal mobility and thickness. No stenosis with trivial regurgitation. No evidence of pulmonary hypertension. RVSP 27 mmHg. MITRAL VALVE: Normal mobility and thickness. No evidence of mitral valve stenosis. There is no mitral annular calcification. Trivial mitral regurgitation. AORTIC VALVE: Normal trileaflet appearance. Thickened aortic valve. Normal leaflet mobility. No evidence of aortic valve stenosis. No aortic regurgitation. AORTIC ROOT: Normal diameter and appearance, measuring 3.7 cm. The ascending aorta is mildly dilated measuring 4.0 cm. PULMONIC VALVE: Normal thickness and mobility. No stenosis. No regurgitation. PERICARDIUM: No evidence of pericardial effusion. IVC: Collapses with inspiration. Normal size. PLEURA: CONCLUSION: 1. Moderate concentric left ventricular hypertrophy with normal systolic function. LVEF is estimated at 65 to 70%. 2. Normal right ventricular size and systolic function. 3. Mild biatrial dilatation. 4. No significant valvular dysfunction. 5. Normal right-sided pressures. 6. Mildly dilated ascending aorta measuring 4.0 cm. Adult Echocardiography Procedure Report Left Ventricle LVEDD (3.7 - 5.6 cm): 5.05 cm LVESD (2.2 - 4.0 cm): 3.32 cm LVIVS thickness (0.6 - 1.2 cm): 1.42 cm LVPW thickness (0.5 - 1.0 cm): 1.43 cm e': 0.08 m/s E - e': 8.90 LVOT Max Gradient: 3.29 mm[Hg] LVOT Area (cm2): 0.91 m/s Peak Velocity (LVOT): 0.91 m/s Mean Velocity (LVOT): 0.70 m/s LVOT Diameter 2.24 cm Left Ventricular Ejection Fraction: 65-70 % Left Atrium LA Volume Index (2D A2C): 31.15 ml/m2 Left Atrium Systolic Dimension: 4.10 cm Mitral Valve MV E to A Ratio: 1.18 Mitral Valve A-Wave Peak Velocity: 0.63 m/s Mitral Valve E-Wave Peak Velocity: 0.74 m/s Right Ventricle RV Internal Diastolic Dimension: 3.44 cm Aorta AO Root Diam: 3.66 cm Ascending Ao Diam: 4.04 cm Aortic Valve AoV Area (Peak Hesham): 3.04 cm2, 3.04 cm2 AoV Area (VTI): 3.37 cm2, 3.37 cm2 Peak Velocity(Antegrade Flow): 1.17 m/s Peak Gradient(Antegrade Flow): 5.49 mm[Hg] Mean Velocity(Antegrade Flow): 0.83 m/s Mean Gradient(Antegrade Flow): 3.15 mm[Hg] Velocity Time Integral: 22.22 cm Tricuspid Valve Peak Velocity (Regurgitant Flow): 1.23 m/s, 2.45 m/s Pulmonic Valve Peak Velocity: 0.85 m/s Peak Gradient: 3.36 mm[Hg], 2.48 mm[Hg] Right Atrium Right Atrium Systolic Pressure: 38.92 ml, 38.92 ml Dictated by: Erick Wade M.D. on 01/28/2025 at 10:39 Approved by: Erick Wade M.D. on 01/28/2025 at 10:44
== END 2025-01-27 15:42 | disposition home or self-care (01) ==
PROVIDERS: PCP Family Medicine; Visit Provider Nurse Practitioner Family
DX: I48.0 Paroxysmal atrial fibrillation (principal); I10 Essential (primary) hypertension; I34.0 Nonrheumatic mitral (valve) insufficiency; I77.819 Aortic ectasia, unspecified site
CPT/HCPCS: 93306

== ENCOUNTER 2025-03-09 08:53 | Outpatient (OUT) | payer OTHER, SELFPAY ==
--- OUTSIDE RECORDS SUMMARY | 2025-03-09 08:59 | XMS_ITS | Clinical Summary ---
Author Organization [facility] Address [address] [place] [address] Care Team Providers Care Fish Hatchery Assistant Name Role Phone Unavailable Primary Care Provider Unavailabl e Social History Tobacco UseTypesPacks/DayYears UsedDateSmoking Tobacco: Never AssessedSex and Gender InformationValueDate RecordedSex Assigned at BirthNot on fileLegal Sex Male07/18/2022 8:25 PM EDTGender IdentityNot on fileSexual OrientationNot on file Last Filed Vital Signs Vital SignReadingTime TakenCommentsBlood Atjicvpb568/7001 12:00 PM EST Pulse--Temperature--Respiratory Rate--Oxygen Saturation--Inhaled Oxygen Concentration--Pvtide768 kg (302 lb)05/13/2019 12:00 PM FZQDgmxyp894.6 cm (5' 6 )05/13/2019 12:00 PM ESTBody Mass Index48.7405/13/2019 12:00 PM EST Plan of Treatment Not on file
--- OUTSIDE RECORDS SUMMARY | 2025-03-09 08:59 | XMS_ITS | Clinical Summary ---
Author Organization [facility] Address [address] [place] [address] Phone Care Team Providers Care Service Line Bus Cleaner Name Role Phone Unavailable Primary Care Provider Unavailabl e Allergies No known active allergies Medications MedicationSigDispense QuantityRefillsLast FilledStart DateEnd DateStatus apixaban (Eliquis) 5 mg tablet Indications:Atrial fibrillation, unspecified type (Multi)Take 1 tablet (5 mg) by mouth 2 times a day. 180 tablet ctive dilTIAZem CD (Cardizem CD) 120 mg 24 hr capsule Indications:Atrial fibrillation, unspecified type (Multi),SVT (supraventricular tachycardia)Take 1 capsule (120 mg) by mouth once daily. 90 capsule ctive pantoprazole (ProtoNix) 40 mg EC tablet Take 1 tablet (40 mg) by mouth once daily in the morning. Take before meals. 05/22/2023ctive furosemide (Lasix) 40 mg tablet Take 1 tablet (40 mg) by mouth once daily.05/22/2023ctive amLODIPine (Norvasc) 10 mg tablet Take 1 tablet (10 mg) by mouth once daily.03/18/2023ctive Eliquis 5 mg tablet Take 1 tablet (5 mg) by mouth 2 times a day.05/27/2023ctive diclofenac (Voltaren) 75 mg EC tablet Take 1 tablet (75 mg) by mouth 2 times a day.02/04/2023ctive carvedilol (Coreg) 25 mg tablet Take 1 tablet (25 mg) by mouth once daily.03/18/2023ctive dilTIAZem CD (Cardizem CD) 120 mg 24 hr capsule Take 1 capsule (120 mg) by mouth once daily.05/27/2023ctive hydroCHLOROthiazide (HYDRODiuril) 25 mg tablet Take 1 tablet (25 mg) by mouth once daily.03/18/2023ctive irbesartan (Avapro) 300 mg tablet Take 1 tablet (300 mg) by mouth once daily.03/11/2023ctive Klor-Con M20 20 mEq ER tablet Take 1 tablet (20 mEq) by mouth once daily.05/27/2023ctive spironolactone (Aldactone) 50 mg tablet Take 1 tablet (50 mg) by mouth once daily.02/22/2023ctive Active Problems ProblemNoted DateDiagnosed DateGERD (gastroesophageal reflux disease)06/06/2023 Hiatal bxeifs1806/06/2023SVT (supraventricular tachycardia)06/06/2023trial fibrillation, ekwnxfgdba14/01/2024Essential ygixqodpacjv74/01/2024 Social History Tobacco UseTypesPacks/DayYears UsedDateSmoking Tobacco: Never AssessedSex and Gender InformationValueDate RecordedSex Assigned at ApkhaZubg11/01/2024 12:04 PM ESTLegal SjyAnzh27/26/2022 9:20 AM ESTGender GafvstxxZnox11/01/2024 12:04 PM EST Sexual UhlbdbstsgfQreidkvv76/01/2024 12:04 PM EST Plan of Treatment Health MaintenanceDue DateLast DoneCommentsCT Wbylrotftwzx1963Colonoscopy 1965Colorectal Cancer Kubenurms1963FIT-DNA (Cologuard)1963FIT 1965HIV Mhwvzblun1963Lipid Panel1965 9824Dhialyjlentff1963 Yearly Adult Gvgaxfju1963MMR Vaccines (1 of 1 - Standard series)1964 Hepatitis C Ftnerqxoa75/25/1981DTaP/Tdap/Td Vaccines (1 - Tdap)1985PSA Prostate Cancer Rblqjvhbp47/25/2013Pneumococcal Vaccine (1 of 1 - PCV)2013 Zoster Vaccines (1 of 2)11/25/2013Influenza Vaccine (#1)501/ COVID-19 Vaccine (2024- season)2025RSV High Risk: (Elderly (60+) or Population) (1 - 1-dose 75+ series)2038HIB VaccinesAged OutNo longer eligible based on patient's age to complete this topicHPV VaccinesAged OutNo longer eligible based on patient's age to complete this topicHepatitis A VaccinesAged OutNo longer eligible based on patient's age to complete this topic Hepatitis B VaccinesAged OutNo longer eligible based on patient's age to complete this topicIPV VaccinesAged OutNo longer eligible based on patient's age to complete this topicMeningococcal VaccineAged OutNo longer eligible based on patient's age to complete this topicRotavirus VaccinesAged OutNo longer eligible based on patient's age to complete this topic Insurance * Guarantor: Tejas Ray TypeRelation to PatientDate of BirthPhone Billing AddressPersonal/QnbpxaMdnw1965 [address] [id number]
--- OUTSIDE RECORDS SUMMARY | 2025-03-09 08:59 | XMS_ITS | Clinical Summary ---
Author Organization [employer] Address [id number] [place] [address] Care Team Providers Care Channel Supervisor Name Role Phone Storm Guevara MD Primary Care Provider [phone] Social History Tobacco UseTypesPacks/DayYears UsedDateSmoking Tobacco: Never AssessedSex and Gender InformationValueDate RecordedSex Assigned at HihcgGtvz35/09/2024 12:03 PM EDTLegal JtsMhlm2808/01/2023 2:39 PM EDTGender LivyuzbxUrwc23/09/2024 12:03 PM EDT Sexual PzcswrvxconYzgwxgjd67/09/2024 12:03 PM EDT Plan of Treatment Health MaintenanceDue DateLast DoneCommentsDepression Orkrmgtsk98/25/1975Tobacco Dvkxnikms34/25/1975Adult BMI Ejzafmqid10/25/1981DTaP,Tdap and Td Vaccines (1 - Tdap)1982Zoster (Shingles) Vaccine (1 of 2)2013Influenza Vaccine 01/04/2025RSV ( or age 60+ yrs) (1 - 1-dose 75+ series)2038 [employer] Not on file Insurance Care Teams Team MemberRelationshipSpecialtyStart DateEnd Storm Guevara [facility]
--- OUTSIDE RECORDS SUMMARY | 2025-03-09 08:59 | XMS_ITS | Clinical Summary ---
Author Organization [facility] Address [address] [place] [address] Care Team Providers Care Lock Technician Name Role Phone Storm Guevara MD Primary Care Provider [phone] Allergies No known active allergies Medications MedicationSigDispense QuantityRefillsLast FilledStart DateEnd DateStatus pantoprazole (ProtoNix) 40 mg EC tablet Take 40 mg by mouth before breakfast.05/22/2023ctive Eliquis 5 mg tablet Take 5 mg by mouth in the morning and at bedtime.05/27/2023ctive allopurinol (Zyloprim) 100 mg tablet Take 100 mg by mouth in the morning.Active celecoxib (CeleBREX) 200 mg capsule Take 200 mg by mouth in the morning.Active furosemide (Lasix) 40 mg tablet Indications:Chronic heart failure with preserved ejection fraction (CMS/HCC)Take 1 tablet (40 mg) by mouth two times daily. 180 tablet ctive SEMAGLUTIDE SUBQ 12/20/2023ctive dilTIAZem CD (Cardizem CD) 120 mg 24 hr capsule Indications:Paroxysmal atrial fibrillation (CMS/HCC)Take 1 capsule (120 mg) by mouth once daily as directed. 90 capsule 5Active Active Problems ProblemNoted DateDiagnosed DateStrain of calf shfnmd2912/03/2023cute diastolic HF (heart failure)cute pain of right foot/ Bacteremia due to Streptococcus uqwhlksrxm30/16/202404/enign paroxysmal positional qqvoyvx09MI 50.0-59.9, adult/ Mruqriwcqy33og biteyspnea08/20/2023 08/20/20230213Cgmtvsufwyydm04HypoxiaSepsis rediabetesneumonia Morbid ouapxha15Leg edemaInfection, streptococcus mwzqpuopyu52Essential cqmjjvifgpuy30/01/2024 07/01/2023GERD (gastroesophageal reflux disease)-fib 06/06/2023 Overview (11/27/2023): - CHADVASC at least 3 for hypertension, history of DVT, possibly for for underlying HFpEF SVT (supraventricular tachycardia) Resolved Problems ProblemNoted DateDiagnosed DateResolved DateCongestive heart wbgbzsq9708/20/2023 Encounters DateTypeDepartmentCare MdoaDrbtqxynhus45/26/2025Telephone [facility] at [address] [address] Anne Ernst MA from Last 3 Months Family History Medical HistoryRelationNameCommentsStrokeMotherRelationNameStatusCommentsFather AliveMotherDeceased Social History Tobacco UseTypesPacks/DayYears UsedDateSmoking Tobacco: NeverSmokeless Tobacco: Never Tobacco Cessation:Counseling Given: Not Answered Alcohol UseStandard Drinks/WeekCommentsYes0 (1 standard drink = 0.6 oz pure alcohol)occasionalUT Safety & EnvironmentAnswerDate RecordedFear of Current or Ex-PartnerNot on file06/28/2023Emotionally AbusedNot on file06/28/2023hysically AbusedNot on file06/28/2023Sexually AbusedNot on file06/28/2023hysically or Sexually AbusedNot on file06/28/2023Sex and Gender InformationValueDate Recorded Sex Assigned at OzabkThro98/30/2025 2:31 PM EDTLegal SqhXrnf7211/19/2022 12:29 PM EDTGender RdzsfqteHwqe64/30/2025 2:31 PM EDTSexual OrientationHeterosexual or Jlzqyatw59/30/2025 2:31 PM EDT Last Filed Vital Signs Vital SignReadingTime TakenCommentsBlood Iciodfra405/85010/21/2024 10:04 AM EDT Uzvic848110/21/2024 10:04 AM AOFKdpkwjowkjg04.2 ??C (97.2 ??F)01/29/2024 3:55 PM EDTRespiratory Ajwc705701/29/2024 3:55 PM EDTOxygen Eyrshwmizw19%10/21/2024 10:04 AM EDTInhaled Oxygen Concentration--Buznbd406 kg (241 lb)10/21/2024 10:04 AM EDT Zbbqjq509.6 cm (5' 6 )10/21/2024 10:04 AM EDTBody Mass Index38.9010/21/2024 10:04 AM EDT Plan of Treatment DateTypeDepartmentCare Team (Latest Contact Info)Xcwvtorkviw73/04/2025 11:45 AM ESTOffice Visit [facility] [address] [place] [address] Janusz Cat MD [address] [place] [address] Health MaintenanceDue DateLast DoneCommentsCT Gwfgivetuhli1963Colonoscopy 1963Colorectal Cancer Tlccwgmpz1963Diabetes: Hemoglobin A1C 1963FIT-DNA1963FIT1963FOBT1963 9670Kaslmvysqgukt1963 Diabetes: Retinopathy Ezkknarjo03/25/1973Depression Xrbcwuarp24/25/1975Diabetes: Urine Protein Zobthzqeo67/25/1982Pneumococcal Vaccine: Pediatrics (0 to 5 Years) and At-Risk Patients (6 to 64 Years) (1 of 2 - PCV)1982Zoster Vaccines (1 of 2)2013COVID-19 Vaccine (3 - season)/, 08/11/2020Influenza Vaccine (#1)501/, 02/07/2021, 02/22/2017, Additional history existsAdult Pgapyan60HIB VaccinesAged OutNo longer eligible based on patient's age to complete this topicHPV VaccinesAged OutNo longer eligible based on patient's age to complete this topicIPV Vaccines Aged OutNo longer eligible based on patient's age to complete this topic Meningococcal B VaccineAged OutNo longer eligible based on patient's age to complete this topicMeningococcal VaccineAged OutNo longer eligible based on patient's age to complete this topicRotavirus VaccinesAged OutNo longer eligible based on patient's age to complete this topic Insurance Advance Directives * Full Code (Latest Code Status on File) Date ActivatedDate InactivatedComments01/29/2024 12:29 PM01/29/2024 6:09 PM Care Teams Team MemberRelationshipSpecialtyStart DateEnd Date Storm Guevara MD [address] [facility] [address] [address] [facility] - General07/01/23
--- OUTSIDE RECORDS SUMMARY | 2025-03-09 09:08 | XMS_ITS | CCD ---
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 Name Role Phone DR COSTA GUEVARA Attending Unavailable DR COSTA GUEVARA Consulting Unavailable DR COSTA GUEVARA Admitting Unavailable MD Costa Guevara Primary Care Provider [phone] DO Bassem Lopez Emergency Provider DO Arturo Dolan Admit Provider DO Arturo Dolan Attending Provider [phone] MD Costa Guevara Primary Care Provider [phone] KENDRICK Mckinney Emergency Provider MD Costa Guevara Primary Care Provider [phone] MD Costa Guevara Attending Provider MD Costa Guevara Referring Provider MD Costa Guevara Primary Care Provider [phone] DO Bassem Lopez Emergency Provider Bullimore, Shyann E Admitting Unavailable Bullimore, Shyann E Attending Unavailable Costa Guevara Primary Care Unavailable Costa Guevara Primary Care Unavailable Costa Guevara Attending Unavailable Costa Guevara Referring Unavailable Costa Guevara Admitting Unavailable [place] Consulting Unavailable Costa Guevara Primary Care Unavailable Arturo Dolan Admitting Unavailcolten e Arturo Dolan Attending UnavailDelvis Márquez Consulting Unavailable Mony Orozco Consulting Unavailable Rob Schreiber Consulting Unavail able [...] Unavailable Costa Guevara MD Primary Care Provider [phone] NEGRO COLE Attending Unavailable NEGRO COLE Attending Unavailable NEGRO COLE Attending Unavailable Medications Current Medications MedicationDrug Class(es)DatesSig (Normalized)Sig (Original)acetaminophen 325 mg / oxyCODONE hydrochloride 5 mg oral tablet (3 sources)Opioid AgonistStart: 01-13-4118qoii 1 tablet by mouth every six hours Oxycodone-Acetaminophen (Percocet) 5-325 mg tablet Active 1 TAB PO Q6H 12 May 28pixaban 5 mg oral tablet (4 sources)Factor Xa InhibitorStart: 54-36-5510rvfd 1 tablet by mouth twice dailyApixaban (Eliquis) 5 mg Tablet Active 5 MG PO Twice daily 60 May 27, 2023 1:00amcefuroxime 500 mg oral tablet (4 sources)Cephalosporin AntibacterialStart: 06-99-4754twwj 500 mg by mouth twice dailyCefuroxime Axetil Active 500 MG PO Twice daily 20 May 27, 2023 1:00amcyclobenzaprine hydrochloride 10 mg oral tablet (1 source)Muscle RelaxantStart: 29-63-2868owud 10 mg by mouth three times daily Cyclobenzaprine Active 10 MG PO Three times daily December 02, 2023 12:00am diclofenac sodium 75 mg delayed release oral tablet (4 sources)Nonsteroidal Anti-inflammatory DrugStart: 94-79-0562ixle 75 mg by mouth twice dailyDiclofenac Sodium Active 75 MG PO Twice daily May 24, 2023 1:00am24 hr dilTIAZem hydrochloride 120 mg extended release oral capsule (4 sources)Calcium Channel BlockerStart: 36-41-4712ryuv 120 mg by mouth once dailyDiltiazem Hcl Active 120 MG PO Daily May 27, 2023 1:00am furosemide 40 mg oral tablet (5 sources)Loop DiureticStart: 71-97-2042kott 1 tablet by mouth once daily in the morningFurosemide (Lasix) 40 mg tablet Active 40 MG PO Every morning October 09, 2019 12:00ampantoprazole 40 mg delayed release oral tablet (5 sources)Proton Pump InhibitorStart: 64-50-6254cjos 1 tablet by mouth once dailyPantoprazole (Protonix) 40 mg tablet,delayed release (DR/EC) Active 40 MG PO Daily March 24, 2019 1:00ammicroencapsulated potassium chloride 20 meq extended release oral tablet (4 sources)Start: 81-41-5860Rkxrnczch Chloride (Klor-Con M20) 20 mEq Tablet,Er Particles/Crystals Active 20 MEQ PO Daily May 27, 2023 1:00am saccharomyces boulardii 250 mg oral capsule (4 sources)Start: 48-48-8918uior 250 mg by mouth twice daily at mealtime Saccharomyces Boulardii Active 250 MG PO Twice daily with meals May 27, 2023 1:00am Completed/Discontinued Medications MedicationDrug Class(es)DatesSig (Normalized)Sig (Original)acetaminophen 325 mg / HYDROcodone bitartrate 5 mg oral tablet (5 sources)Opioid AgonistStart: 03-24-2019 End: 91-01-5151cgpd 1 tablet by mouth every six hoursHydrocodone-Acetaminophen ([place]ahoo) 5-325 mg tablet Discontinued 1 TAB PO Q6H 10 3 March 24, 2019 October 08, 2019 2:42pmamLODIPine 10 mg oral tablet (4 sources)Dihydropyridine Calcium Channel BlockerStart: 05-24-2023 End: 62-79-6467lxdv 10 mg by mouth once dailyAmlodipine Discontinued 10 MG PO Daily May 24, 2023 1:00am May 27, 2023 12:59pmamoxicillin 875 mg / clavulanate 125 mg oral tablet (5 sources)Penicillin-class AntibacterialStart: 03-24-2019 End: 83-36-2539ktkf 1 tablet by mouth twice dailyAmoxicillin-Pot Clavulanate (Augmentin) 875-125 mg tablet Discontinued 1 TAB PO Twice daily 22 02March 24, 2019 1:00am October 08, 2019 2:42pmcarvedilol 25 mg oral tablet (4 sources)alpha-Adrenergic Anel, beta-Adrenergic BlockerStart: 05-24-2023 End: 24-18-5457suay 25 mg by mouth once dailyCarvedilol Discontinued 25 MG PO Daily May 24, 2023 1:00am May 27, 2023 12:59pmdiphenhydrAMINE hydrochloride 25 mg oral capsule (5 sources)Histamine-1 Receptor AntagonistStart: 09-03-2020 End: 56-52-4014zloq 1 capsule by mouth every six hoursDiphenhydramine Hcl (Benadryl) 25 mg capsule Discontinued 25 MG PO Q6H September 03, 2020 12:00am Ben cruz 2023 9:40pm until resolution of severe allergic reactiondoxycycline hyclate 100 mg oral tablet (5 sources)Tetracycline-class DrugStart: 02-28-2021 End: 27-49-0537ikba 100 mg by mouth twice dailyDoxycycline Hyclate Discontinued 100 MG PO Twice daily February 28, 2021 12:00am May 24, 2023 9:40pm hydroCHLOROthiazide 25 mg oral tablet (4 sources)Thiazide DiureticStart: 05-24-2023 End: 06-53-3556yjnr 25 mg by mouth once dailyHydrochlorothiazide Discontinued 25 MG PO Daily May 24, 2023 1:00am May 27, 2023 12:59pmibuprofen 800 mg oral tablet (5 sources)Nonsteroidal Anti-inflammatory DrugStart: 10-08-2019 End: 05-34-4590vmpy 800 mg by mouth three times dailyIbuprofen Discontinued 800 MG PO Three times daily October 08, 2019 12:00am May 24, 2023 9:40pm irbesartan 300 mg oral tablet (4 sources)Angiotensin 2 Receptor BlockerStart: 05-24-2023 End: 00-65-4272gimc 300 mg by mouth once dailyIrbesartan Discontinued 300 MG PO Daily May 24, 2023 1:00am May 27, 2023 12:59pmlosartan potassium 50 mg oral tablet (5 sources)Angiotensin 2 Receptor BlockerStart: 10-09-2019 End: 71-22-4597mjfy 50 mg by mouth once dailyLosartan Discontinued 50 MG PO Daily October 09, 2019 12:00am May 24, 2023 9:41pmmeclizine hydrochloride 25 mg oral tablet (5 sources)AntiemeticStart: 09-03-2020 End: 45-18-4783mwuw 25 mg by mouth three times dailyMeclizine Discontinued 25 MG PO Three times daily September 03, 2020 12:00am May 24, 2023 9:43pm Problems Active Problems Problem ClassificationProblemDateDocumented DateEpisodic/ChronicAbdominal hernia (5 sources)Hiatal hernia; Translations: [Diaphragmatic hernia without obstruction or gangrene]50-82-5146UocahnnrDjaxbk; peripheral; and visceral artery aneurysms (2 sources)Aortic ectasia, unspecified site; Translations: [Aortic ectasia, unspecified site]Onset: 52-04-0720CyesaaxTfzadol dysrhythmias (20 sources)Supraventricular tachycardia; Translations: [Supraventricular tachycardia]Onset: 244298-05-8444MigpafmNfezbmqlyl associated with dizziness or vertigo (5 sources)Benign paroxysmal positional vertigo; Translations: [Benign paroxysmal vertigo, unspecified ear]75-05-5601ZzyoijlfSlllnsdtms heart failure; nonhypertensive (12 sources)Congestive heart failure; Translations: [Heart failure, unspecified] Onset: 454865-88-7943UfracrmO Codes: Natural/environment (5 sources)Dog bite - wound; Translations: [Bitten by dog, initial encounter] 93-05-4092PizexbkjHoimdzheja disorders (5 sources)Gastroesophageal reflux disease; Translations: [Gastro-esophageal reflux disease without esophagitis]74-58-6671DejinwjOiebfexdu hypertension (12 sources)Benign hypertension; Translations: [Essential (primary) hypertension]Onset: 733916-92-0998DlylqmeTsnsu valve disorders (2 sources)Nonrheumatic mitral (valve) insufficiency; Translations: [Nonrheumatic mitral (valve) insufficiency]Onset: 13-49-0416IsgdabfEanorlzhtgke with complications and secondary hypertension (2 sources)Hypertensive heart disease without heart failure; Translations: [Hypertensive heart disease withoutheart failure]Onset: 33-02-4173Ttybeny Lymphadenitis (4 sources)Localized enlarged lymph nodes; Translations: [LOCALIZED ENLARGED LYMPH NODES]Onset: 52-92-1427AfvfaldnOkhsa connective tissue disease (3 sources)Foot pain; Translations: [Pain in right foot]72-45-1021GgohxztfQzvwz lower respiratory disease (5 sources)Dyspnea; Translations: [Dyspnea, unspecified]71-64-5473VzlpcblcFcill lower respiratory disease (5 sources)Hypoxia; Translations: [Hypoxemia]89-10-6631ZtdaqvbcAbngs nutritional; endocrine; and metabolic disorders (5 sources)Morbid obesity; Translations: [Morbid (severe) obesity due to excess calories]79-89-7943FxkfiirQmaab nutritional; endocrine; and metabolic disorders (4 sources)Body mass index 40+ - severely obese; Translations: [Body mass index (BMI) 50.0-59.9, adult]16-33-6587QkrhvjuAsvqy nutritional; endocrine; and metabolic disorders (3 sources)Body mass index (BMI) 50.0-59.9, adult; Translations: [Body Mass Index 50.0-59.9, adult]Onset: 234476-92-6653ErvmjhjRfmxp upper respiratory disease (1 source)Abscess, furuncle and carbuncle of nose; Translations: [Abscess, furuncle and carbuncle of nose]Onset: 95-91-4892MqnpubqxLjxtjujh codes; unclassified (4 sources)Hypoxia; Translations: [Idiopathic sleep related nonobstructive alveolar hypoventilation]28-85-9638IjfbhlvHywvtcdc codes; unclassified (1 source)Idiopathic sleep related nonobstructive alveolar hypoventilation; Translations: [Idiopathic sleep related nonobstructive alveolar hypoventilation] Onset: 26-43-6678DyuathsQjthnnjz codes; unclassified (4 sources)Edema of lower extremity; Translations: [Localized edema]05-24-2023 EpisodicSprains and strains (1 source)Strain of calf muscle; Translations: [Strain of other muscle(s) and tendon(s) at lower leg level, unspecified leg, initial encounter]12-02-2023 EpisodicUnclassified (1 source)Pain in right foot; Translations: [Pain in right foot]Onset: 43-20-6757Hzltezrcizfc (1 source)Supraventricular tachycardia, unspecified; Translations: [Supraventricular tachycardia, unspecified]Onset: 07-01-2023 Past or Other Problems Problem ClassificationProblemDateDocumented DateEpisodic/ChronicBacterial infection; unspecified site (15 sources)Bacteremia caused by Gram-positive bacteria; Translations: [Bacteremia]Onset: 420188-33-5958CivmoqpwPxrirtso mellitus without complication (12 sources)Prediabetes; Translations: [Prediabetes]Onset: EpisodicOther circulatory disease (2 sources)Personal history of other diseases of the circulatory system; Translations: [Personal history of other diseases of the circulatory system] Onset: 35-92-0396CpnvprgeBpruu connective tissue disease (1 source)Pain in right lower leg; Translations: [Pain in right lower leg]Onset: 11-18-2566IivfcjawTrsjh lower respiratory disease (4 sources)Hypoxemia; Translations: [Hypoxemia]Onset: EpisodicOther skin disorders (1 source)Unspecified skin changes; Translations: [Unspecified skin changes] Onset: 08-07-5831HmirhemuZvabgzyvy (except that caused by tuberculosis or sexually transmitted disease) (9 sources)Pneumonia; Translations: [Pneumonia, unspecified organism]Onset: 847839-95-8892ZbaunpplGdozuumf codes; unclassified (3 sources)Localized edema; Translations: [Edema]Onset: EpisodicResidual codes; unclassified (2 sources)Other specified postprocedural states; Translations: [Other specified postprocedural states]Onset: 27-13-1311RjaqxrhuRsyrwnhses (except in labor) (9 sources)Sepsis; Translations: [Sepsis, unspecified organism]Onset: 05-24-2023 10-20-8211RpbzyqtzCykq and subcutaneous tissue infections (6 sources)Cellulitis; Translations: [Cellulitis, unspecified]Onset: 08-28-2023 00-37-2848EmgfzwemSekuoplkpqjj (1 source)Supraventricular tachycardia, unspecified; Translations: [Supraventricular tachycardia, unspecified]Onset: 04-15-2024 Results Test NameValueInterpretationReference JjgzyFkjusaiv97zh 86-60-986743MhcbzzpCRISTIAN Phipps MA Please let him know his ECHO looks good. No significant changes. Normal pumping function, no significant valve dysfunction. Aortic aneurysm is stable. Follow-up as planned. Thanks! Spoke to patient to inform him of his Echo results per Yary Cole CNP request. Patient verbalized understanding.[facility] HospitalOffice Visiton 51-02-9210Atracn-up [id number] Rob Ray 1965 M Date Provider Department Center 10/21/2024 NEGRO OLMSTEAD Family History Problem Relation Age of Onset Stroke Mother Family Status - Relation Status Age at Mother Father Alive Level of Service:78556 OR OFFICE/OUTPATIENT ESTABLISHED MOD MDM 30 MIN Reason for Visit and Comments: Atrial Fibrillation [80][facility] HospitalOffice Visiton 37-16-3810Rsindi-up [id number] Rob Rya 1965 M Date Provider Department Center 04/15/2024 NEGRO OLMSTEAD Family History Problem Relation Age of Onset Stroke Mother Family Status - Relation Status Age at Mother Level of Service:15422 OR OFFICE/OUTPATIENT ESTABLISHED MOD MDM 30 MIN Reason for Visit and Comments: Atrial Fibrillation [80][facility] HospitalFollow-Upon [id number] Rob Ray 1965 M Date Provider Department Center 02/26/2024 NEGRO OLMSTEAD Family History Problem Relation Age of Onset Stroke Mother Family Status - Relation Status Age at Mother Level of Service:49104 OR OFFICE/OUTPATIENT ESTABLISHED MOD MDM 30 MIN Reason for Visit and Comments: Atrial Fibrillation [80][facility] HospitalUS venous duplex LE RTon 32-70-4854CM venous duplex LE [facility] [place] [address] Ultrasound Report Signed Patient: Rob Ray MR#: [id number] 0 : 1965 Acct:[id number] Age/Sex: 58 / M ADM Date: 12/02/23 Loc: ER Room: Type: DEP ER Attending Dr: Ordering Provider: Bassem Lopez [...] Jonathan Rodriguez MD12/02/2023 2:14 PM Dictation Location: [place] [address] Tech: Yohana Whitley Transcribed By: [facility] 12/02/23 141 Dictated By: Jonathan Rodriguez MD 12/02/231413 Signed By: 12/02/23 1414[facility] Physician GroupMultiple labson 07-31-2023 [facility] SystemWound culture surgical deep includes gram stainon 22-19-1789QgvRrkimxProtestant Deaconess HospitalUS venous duplex LE RTon 12-42-8999TZ venous duplex LE [facility] [address] [place] [id number] Ultrasound Report Signed Patient: Rob Ray MR#: [id number] 0 : 1965 Acct:[id number] Age/Sex: 58 / M ADM Date: 05/28/23 Loc: ER Room: Type: DEP ER Attending : Ordering Provider: Edwin Mckinney PA-C Date of [...] Kulwinder Ma M.D.05/29/2023 9:08 AM Dictation Location: [place] [address] Tech: Kendra Chaves Transcribed By: DARLING 05/29/23 0908 Dictated By: Kulwinder Ma MD 05/29/23 0907 Signed By: 05/29/23 0908[facility] Physician GroupActivated partial thromboplastin time (aPTT) in platelet poor plasma by coagulation aOrdered By: Edwin Mckinney on 98-46-1960yBLE Coag (PPP) [Time]35.7 s25.1-36.5FBucyrus Community HospitalComment on above:A hematocrit value greater than 55% may lead to inaccurate results in coagulation testing. Patientshaving hematocrit values >55% require a special collection tube for coagulation studies. Please contact the laboratory at [phone] for redraw instructions.Alanine aminotransferase [Enzymatic activity/volume] in Serum or PlasmaOrdered By: Edwin Mckinney on 04-14-8411HAY [Catalytic activity/Vol]29 U/LNormal7-52[facility] HospitalComment on above:Performed By: #### PTT, HEPATIC, BMP, PT #### [facility] [address] [place] [address] USAAlbumin [Mass/volume] in Serum or Plasma by Bromocresol green (BCG) dye binding methoOrdered By: Edwin Mckinney on 48-88-8075Nozdbez BCG dye [Mass/Vol]4.3 g/dL3.5-5.7FBucyrus Community HospitalAlkaline phosphatase [Enzymatic activity/volume] in Serum or PlasmaOrdered By: Edwin Mckinney on 08-61-5028XEK [Catalytic activity/Vol]73 U/XGifvrc74-272KwxicdadrLicking Memorial HospitalComment on above:Performed By: #### PTT, HEPATIC, BMP, PT #### [facility] [address] [place] [address] USAAspartate aminotransferase [Enzymatic activity/volume] in Serum or PlasmaOrdered By: Edwin Mckinney on 50-36-3422LSE [Catalytic activity/Vol]18 U/LUwwpnv24-39BctbahaxsLicking Memorial HospitalComment on above: Performed By: #### PTT, HEPATIC, BMP, PT #### [place] [address] USAAutomated basophil %Ordered By: Edwin Mckinney on 05-28-2023 Basophils/100 WBC (Bld)0.6 %Normal.[facility] HospitalComment on above:Performed By: #### CBC #### [place] [address] USAAutomated basophil countOrdered By: Edwin Mckinney on 27-17-8584Cepeqpjam (Bld) [#/Vol]0.1 10*3/uLNormal0.0-0.2FBucyrus Community HospitalComment on above:Result Comment: PERFORMED BY: [place] [address] PATHOLOGIST BLOCKER AND SEWER ROBERTO OCAMPO M.D.Performed By: #### CBC #### [place] [address] USAAutomated blood monocyte countOrdered By: Edwin Mckinney on 66-47-4993Avteatwtn (Bld) [#/Vol]1.1 10*3/uLHigh0.0-0.8[facility] HospitalComment on above:Performed By: #### CBC #### [place] [address] USAAutomated eosinophil %Ordered By: Edwin Mckinney on 86-52-2053Ijdzfiedvcc/100 WBC (Bld)2.1 %Normal.[facility] Comment on above:Performed By: #### CBC #### [place] [address] USAAutomated eosinophil countOrdered By: Edwin Mckinney on 99-40-3516Jrhqzshrocq (Bld) [#/Vol]0.3 10*3/uLNormal0.0-0.45[facility] HospitalComment on above:Performed By: #### CBC #### [place] [address] USAAutomated monocyte %Ordered By: Edwin Mckinney on 05-28-2023 Monocytes/100 WBC (Bld)8.7 %Normal.[facility] HospitalComment on above:Performed By: #### CBC #### [place] [address] USAAutomated neutrophil %Ordered By: Edwin Mckinney on 29-50-5389Ecjtaxwwijz/100 WBC (Bld)74.0 %Normal.[facility] HospitalComment on above:Performed By: #### CBC #### [place] [address] USABasic Metabolic Panelon 50-50-6357Eeljgzfcou Clr Calc Usoeqbcf96.58NoSelect Specialty Hospital [facility] Physician GroupComment on above:Result Comment: PERFORMED BY: [place] [address] PATHOLOGIST [employer] SEWER ROBERTO OCAMPO M.D.Performed By: #### PTT, HEPATIC, BMP, PT #### [place] [address] USAGFR/1.73 sq M.predicted MDRD (S/P/Bld) [Vol rate/Area] 57.540 mL/min/{1.73_m2}NormalThe [facility] Physician GroupComment on above: Performed By: #### PTT, HEPATIC, BMP, PT #### [address] [place] [address] USABilirubin.direct [Mass/volume] in Serum or PlasmaOrdered By: Edwin Mckinney on 02-41-4661Nqsbtzaxt.direct [Mass/Vol]0.20 mg/dL0.03-0.18 [facility] HospitalBilirubin.total [Mass/volume] in Serum or PlasmaOrdered By: Edwin Mckinney on 11-74-0922Vtgxwshey [Mass/Vol]1.0 mg/dLNormal 0.3-1.0[facility] HospitalComment on above:Performed By: #### PTT, HEPATIC, BMP, PT #### [facility] [address] [place] [address] USACalcium [Mass/volume] in Serum or PlasmaOrdered By: Edwin Mckinney on 32-47-4444Qeorngc [Mass/Vol]9.2 mg/dLNormal8.6-10.3FBucyrus Community HospitalComment on above:Performed By: #### PTT, HEPATIC, BMP, PT #### [facility] [address] [place] [address] USACarbon dioxide, total [Moles/volume] in Serum or Plasma Ordered By: Edwin Mckinney on 84-84-2891VS3 [Moles/Vol]30.9 mmol/YGbgvma80.0-31.0 [facility] HospitalComment on above:Performed By: #### PTT, HEPATIC, BMP, PT #### [facility] [address] [place] [id number] USAChloride [Moles/volume] in Serum or PlasmaOrdered By: Edwin Mckinney on 05-93-0309Vtmvqgzu [Moles/Vol]102 mmol/SUtirki29-581AlgrmbapyLicking Memorial HospitalComment on above:Performed By: #### PTT, HEPATIC, BMP, PT #### [facility] [address] [place] [id number] USAComplete Blood Count Auto Diffon 11-05-4388Ahmx Corpuscular HGB Conc33.5 g/kRIuptrb94.5-35.6The [facility] Physician GroupComment on above:Performed By: #### CBC #### [facility] [address] [place] [id number] USAMonocytes/100 WBC (Bld)21.69 %High0.00-20.00The [facility] Physician GroupComment on above:Result Comment: For adults in ED, MDW > 20.0 may be associated with a higher risk of sepsis during the first 12 hrs of hospital admissionPerformed By: #### CBC #### [facility] [address] [place] [address] USANRBC%0.1 /100{WBC}Normal0-0.5The [facility] Physician Group Comment on above:Performed By: #### CBC #### [facility] [address] [place] [address] USACreatinine [Mass/volume] in Serum or PlasmaOrdered By: Edwin Mckinney on 30-21-1145Wnvtiubufk [Mass/Vol]1.40 mg/dLHigh0.70-1.30[facility] HospitalComment on above:Performed By: #### PTT, HEPATIC, BMP, PT #### [facility] [address] [place], [place] [address] USAECG 12 lead ECGon 25-65-4627HBW 12 lead ECGUNIVERSITY H[facility]ALS [facility] [address] [place] [address] [place] [address] Electrocardiograph Report Signed Patient: Rob Ray MR#: [id number] 0 : 1965 Acct:[id number] Age/Sex: 58 / M ADM Date: 05/28/23 Loc: ER Room: Type: [facility] ER Attending Dr: Ordering Provider: Edwin [...] was found Confirmed by KENIA WILSON DO ([id number]) on 05/28/2023 3:02:52 PM Referred By: Electronically Signed By:KENIA WILSON DO Transcribed By: MUS Signed By Kenia Wilson DO 05/28 1503NoSelect Specialty Hospital [facility] Physician GroupErythrocyte distribution width [Ratio] by Automated countOrdered By: Edwin Mckinney on 29-09-8635Luqrqgwjazk distribution width (RBC) [Ratio]14.0 %Uhnrbj08.0-14.8[facility] HospitalComment on above:Performed By: #### CBC #### [facility] [address] [place] [address] USAErythrocytes [#/volume] in Blood by Automated countOrdered By: Edwin Mckinney on 45-46-9262WBE (Bld) [#/Vol]4.32 10*6/uLNormal3.90-5.60 [facility] HospitalComment on above:Performed By: #### CBC #### [facility] [address] [place] [address] USAGlucose [Mass/volume] in Serum or PlasmaOrdered By: Edwin Mckinney on 30-58-7694Iyiryev [Mass/Vol]97 mg/kDKjjsrk92-926CxaojwpcoLicking Memorial HospitalComment on above:ADA recommended reference rangeRandom Glucose Reference Range is dependent on time and content of last meal. Glucose of more than 200 mg/dL in a nonstressed, ambulatory subject supports the diagnosisof Diabetes Mellitus.Result Comment: Random Glucose Reference Range is dependent on time and content of last meal. Glucose of more than 200 mg/dL in a nonstressed, ambulatory subject supports the diagnosis of Diabetes Mellitus. ADA recommended reference rangePerformed By: #### PTT, HEPATIC, BMP, PT #### [facility] [address] [place] [address] USAHematocrit [Volume Fraction] of Blood by Automated count Ordered By: Edwin Mckinney on 46-77-1180Msdttrcwrr (Bld) [Volume fraction]42.1 % Scclub04.8-50.0[facility] HospitalComment on above:Performed By: #### CBC #### [facility] [address] [place] [address] USAHemoglobin [Mass/volume] in BloodOrdered By: Edwin Mckinney on 68-94-9178Oxuewtgnyg (Bld) [Mass/Vol]14.1 g/gYRnkbyx55.0-17.0[facility] HospitalComment on above:Performed By: #### CBC #### [facility] [address] [place] [address] USAHepatic Panelon 09-93-5721Bqwdzqv [Mass/Vol]4.3 g/dLNormal 3.5-5.7The [facility] Physician GroupComment on above:Performed By: #### PTT, HEPATIC, BMP, PT #### [facility] [address] [place] [address] USABilirubin,Indirect0.8 mg/dLNormalThe Meadows Psychiatric CenterComment on above:Performed By: #### PTT, HEPATIC, BMP, PT #### [facility] [address] [place] [address] USABilirubin.indirect [Mass/Vol]0.20 mg/dLHigh0.03-0.18The [facility] Physician [facility] HospitalComment on above:Performed By: #### PTT, HEPATIC, BMP, PT #### [facility] [address] [place] [address] USAINR in Platelet poor plasma by Coagulation assayOrdered By: Edwin Mckinney on 65-24-8746SHB Coag (PPP) [Relative time]1.4 {INR}Normal [facility] HospitalComment on above:INR Therapeutic Range A) Pre- and Peroperative OAT started two weeks before surgery. NOT HIP SURGERY: 1.5 - 2.5 HIP SURGERY: 2 - 3B) Primary and secondary prevention of venous THROMBOSIS: 2 - 3C) Active venous thrombosis, pulmonary embolismand prevention of recurrent venous thrombosis: 2 - 3D) Prevention of arterial thromboembolismincluding patients with mechanical heart valves: 3 - 4.5Result Comment: INR Therapeutic Range A) Pre- and [...] patients with mechanical heart valves: 3 - 4.5Performed By: #### PTT, HEPATIC, BMP, PT #### [place] [address] USALeukocytes [#/volume] corrected for nucleated erythrocytes in Blood by Automated counOrdered By: Edwin Mckinney on 13-27-9693FOE corrected for nucl RBC Auto (Bld) [#/Vol]12.5 10*3/uL4.1-10.5FBucyrus Community HospitalLeukocytes [#/volume] in Blood by Automated countOrdered By: Edwin Mckinney on 49-30-6947MAI (Bld) [#/Vol]12.5 10*3/uLHigh4.1-10.5FBucyrus Community HospitalComment on above:Performed By: #### CBC #### [place] [address] USALymphocytes [#/volume] in Blood by Automated countOrdered By: Edwin Mckinney on 53-85-9782Xhsfpnhrvkv (Bld) [#/Vol]1.8 10*3/uLNormal1.00-4.8 [facility] HospitalComment on above:Performed By: #### CBC #### [place] [address] USALymphocytes/100 leukocytes in Blood by Automated count Ordered By: Edwin Mckinney on 65-45-6926Wizgkmpxfwz/100 WBC (Bld)14.6 %Normal. [facility] HospitalComment on above:Performed By: #### CBC #### [place] [address] USAH [Entitic mass] by Automated countOrdered By: Edwin Mckinney on 96-34-1140VFM (RBC) [Entitic mass]32.6 usSmzpwk27.5-35.2FBucyrus Community HospitalComment on above:Performed By: #### CBC #### [place] [address] USAHC Auto (RBC) [Mass/Vol]Ordered By: Edwin Mckinney on 52-59-0783JSZZ (RBC) [Mass/Vol]33.5 g/dL32.5-35.6FBucyrus Community HospitalMCV [Entitic volume] by Automated countOrdered By: Edwin Mckinney on 71-42-1430SCA (RBC) [Entitic vol]97.3 kVZzwxan75.5-101[facility] HospitalComment on above:Performed By: #### CBC #### [facility] [address] [id number] USAMonocyte distribution width [Entitic volume] in Blood by AutomatedOrdered By: Edwin Mckinney on 71-65-7850Mouhccjq distribution width Auto (Bld) [Entitic vol]21.69 %0.00-20.00[facility] HospitalComment on above:For adults in ED, MDW > 20.0 may be associated with a higher risk of sepsis during the first 12 hrs of hospital admissionNeutrophils [#/volume] in Blood by Automated countOrdered By: Edwin Mckinney on 46-42-7722Jdipjhgnlgw (Bld) [#/Vol]9.2 10*3/uLHigh1.8-7.7FBucyrus Community HospitalComment on above: Performed By: #### CBC #### [facility] [address] [id number] USANo Panel InformationOrdered By: Edwin Mckinney on 05-28-2023 Estimated GFR (CKD-EPI)57.540 mL/MinLicking Memorial HospitalPharmacy Creatinine Clearance (Chem73.58L[facility] Memorial HospitalNucleated erythrocytes [Presence] in Blood by Automated countOrdered By: Edwin Mckinney on 77-86-0834Oqykkbskw RBC Auto Ql (Bld)0.1 /100{WBC}0-0.5FBucyrus Community HospitalPartial Thromboplastin Timeon 41-93-9750dOUL Coag (Bld) [Time]35.7 eBmmpzl44.1-36.5The [facility] Physician GroupComment on above:Result Comment: A hematocrit value greater than 55% may lead to inaccurate results in coagulation testing. Patients having hematocrit values >55% require a special collection tube for coagulation studies. Please contact the laboratory at [phone] for redraw instructions. PERFORMED BY: [place] [address] PATHOLOGIST [employer] SEW[employer] ROBERTO OCAMPO M.D.Performed By: #### PTT, HEPATIC, BMP, PT #### [place] [address] USAPlatelet mean volume [Entitic volume] in Blood by Automated countOrdered By: Edwin Mckinney on 63-44-5952Wewcqovn mean volume (Bld) [Entitic vol]9.3 fLNormal6.6-10.1FBucyrus Community HospitalComment on above:Performed By: #### CBC #### [place] [address] USAPlatelets [#/volume] in Blood by Automated countOrdered By: Edwin Mckinney on 15-00-3108Vuielaqie (Bld) [#/Vol]296 10*3/uXAzujmv239-557 [facility] HospitalComment on above:Performed By: #### CBC #### [place] [address] USAPotassium [Moles/volume] in Serum or PlasmaOrdered By: Edwin Mckinney on 00-31-1045Inuozwgfu [Moles/Vol]4.1 mmol/LNormal3.5-5.1FBucyrus Community HospitalComment on above:Performed By: #### PTT, HEPATIC, BMP, PT #### [place] [address] USAProtein [Mass/volume] in Serum or PlasmaOrdered By: Edwin Mckinney on 03-21-1162Uaulehn [Mass/Vol]8.5 g/dLNormal6.4-8.9[facility] HospitalComment on above:Performed By: #### PTT, HEPATIC, BMP, PT #### [place] [address] USAProthrombin time (PT)Ordered By: Edwin Mckinney on 90-28-2959CF Coag (PPP) [Time]16.2 sHigh9.0-12.9[facility] HospitalComment on above:A hematocrit value greater than 55% may lead to inaccurate results in coagulation testing. Patientshaving hematocrit values >55% require a special collection tube for coagulation studies. Please contact the laboratory at [phone] for redraw instructions.Result Comment: A hematocrit value greater than 55% may lead to inaccurate results in coagulation testing. Patients having hematocrit values >55% require a special collection tube for coagulation studies. Please contact the laboratory at [phone] for redraw instructions.Performed By: #### PTT, HEPATIC, BMP, PT #### [facility] [address] [place] [address] USASerum globulin measurement by calculation (mass/volume) Ordered By: Edwin Mckinney on 50-12-0710Thlsqouj (S) [Mass/Vol]4.2 g/dLNormal [facility] HospitalComment on above:Performed By: #### PTT, HEPATIC, BMP, PT #### [facility] [address] [place] [address] USASerum or plasma albumin/globulin mass ratioOrdered By: Edwin Mckinney on 62-29-1871Gdwsiqr/Globulin [Mass ratio]1.0 {ratio}Normal [facility] HospitalComment on above:Performed By: #### PTT, HEPATIC, BMP, PT #### [facility] [address] [id number] USASerum or plasma anion gap determinationOrdered By: Edwin Mckinney on 31-37-3468Asacc gap [Moles/Vol]10.2 mmol/LNormal6.0-15.0[facility] HospitalComment on above:Performed By: #### PTT, HEPATIC, BMP, PT #### [facility] [address] [id number] USASerum or plasma non-glucuronidated bilirubin measurement (mass/volume)Ordered By: Edwin Mckinney on 99-87-5571Efzaqticb.indirect [Mass/Vol] 0.8 mg/dLProvidence Hospitalodium [Moles/volume] in Serum or PlasmaOrdered By: Edwin Mckinney on 42-14-9441Hhhjal [Moles/Vol]139 mmol/LNormal 136-145[facility] HospitalComment on above:Performed By: #### PTT, HEPATIC, BMP, PT #### [facility] [address] [place] [address] USAUrea nitrogen [Mass/volume] in Serum or PlasmaOrdered By: Edwin Mckinney on 92-24-8579Whdh nitrogen [Mass/Vol]24 mg/dLNormal7-25[facility] HospitalComment on above:Performed By: #### PTT, HEPATIC, BMP, PT #### [facility] [address] [place] [address] USAXR chest 1V portableon 79-36-3348SH chest 1V portable [facility] Main [place] [address] [place] [address] XRay Report Signed Patient: Rob Ray MR#: [id number] 0 : 1965 Acct:[id number] Age/Sex: 58 / M ADM Date: 05/28/23 Loc: ER Room: Type: [facility] ER Attending Dr: Copies to: Edwin [...] Kulwinder Miller M.D.05/28/2023 2:32 PM Dictation Location: [place] [address] Transcribed By: [facility] 05/28/23 143 Dictated By: Kulwinder Miller DO 05/28/23 143 Signed By: 05/28/[address] [place] [address] Physician GroupXR foot RT min 3V*on 05-28-2023 XR foot RT min 3V*[facility] Main [place] [address] [place] [address] XRay Report Signed Patient: Rob Ray MR#: [id number] 0 : 1965 Acct:[id number] Age/Sex: 58 / M ADM Date: 05/28/23 Loc: ER Room: Type: [facility] ER Attending Dr: Copies to: Edwin [...] Kulwinder Miller M.D.05/28/2023 2:56 PM Dictation Location: [place] [address] Transcribed By: [facility] 05/28/23 145 Dictated By: Kulwinder Miller DO 05/28/23 1453 Signed By: 05/28/23 1456NoSelect [facility]ty Hospital [facility] Physician GroupBasic Metabolic Panelon 35-82-5697Ruvgt gap [Moles/Vol]10.9 mmol/LNormal6.0-15.0The [facility] Physician GroupComment on above:Performed By: #### BMP, CBC #### [facility] [address] [place] [address] USACalcium [Mass/Vol]8.7 mg/dLNormal8.6-10.3The [facility] Physician GroupComment on above:Performed By: #### BMP, CBC #### [facility] [address] [place] [address] USAChloride [Moles/Vol]106 mmol/XZclfjv15-166Ytu [facility] Physician GroupComment on above:Performed By: #### BMP, CBC #### [place] [address] USACO2 [Moles/Vol]25.9 mmol/NEspwgv22.0-31.0The [facility] Physician GroupComment on above:Performed By: #### BMP, CBC #### [place] [address] USACreatinine [Mass/Vol]1.40 mg/dLHigh0.70-1.30The [facility] Physician GroupComment on above:Performed By: #### BMP, CBC #### [place] [address] USACreatinine Clr Calc Mzybxmux70.19NormalThe [facility] Hospital Physician GroupComment on above:Result Comment: PERFORMED BY: [place] [address] PATHOLOGIST [employer] ROBERTO OCAMPO M.D.Performed By: #### BMP, CBC #### [place] [address] USAGFR/1.73 sq M.predicted MDRD (S/P/Bld) [Vol rate/Area] 57.540 mL/min/{1.73_m2}NormalThe [facility] Hospital Physician GroupComment on above: Performed By: #### BMP, CBC #### [place] [address] USAGlucose [Mass/Vol]95 mg/uXBjmubu62-397Suq [facility] Physician GroupComment on above:Result Comment: Random Glucose Reference Range is dependent on time and content of last meal. Glucose of more than 200 mg/dL in a nonstressed, ambulatory subject supports the diagnosis of Diabetes Mellitus. ADA recommended reference rangePerformed By: #### BMP, CBC #### [place] [address] USAPotassium [Moles/Vol]3.8 mmol/LNormal3.5-5.1The [facility] Physician GroupComment on above:Performed By: #### BMP, CBC #### [place] [address] USASodium [Moles/Vol]139 mmol/MWyergu825-175Udx [facility] Physician GroupComment on above:Performed By: #### BMP, CBC #### [place] [address] USAUrea nitrogen [Mass/Vol]32 mg/dLHigh7-25The [facility] Physician GroupComment on above:Performed By: #### BMP, CBC #### [place] [address] USAComplete Blood Count Auto Diffon 94-74-7018Wigkuezwq (Bld) [#/Vol]0.1 10*3/uLNormal0.0-0.2The [facility] Physician GroupComment on above: Result Comment: PERFORMED BY: [place] [address] PATHOLOGIST [employer] AND [employer] ROBERTO OCAMPO M.D.Performed By: #### BMP, CBC #### [place] [address] USABasophils/100 WBC (Bld)0.8 %Normal.The [facility] Physician GroupComment on above:Performed By: #### BMP, CBC #### [place] [address] USAEosinophils (Bld) [#/Vol]0.1 10*3/uLNormal0.0-0.45The [facility] Physician GroupComment on above:Performed By: #### BMP, CBC #### [place] [address] USAEosinophils/100 WBC (Bld)0.8 %Normal.The [facility] Physician GroupComment on above:Performed By: #### BMP, CBC #### [place] [address] USAErythrocyte distribution width (RBC) [Ratio]14.3 %Normal 12.0-14.8The [facility] Physician GroupComment on above:Performed By: #### BMP, CBC #### [place] [address] USAHematocrit (Bld) [Volume fraction]39.1 %Wujxxj58.8-50.0The [facility] Physician GroupComment on above:Performed By: #### BMP, CBC #### [place] [address] USAHemoglobin (Bld) [Mass/Vol]13.1 g/bXQotfph90.0-17.0The [facility] Physician GroupComment on above:Performed By: #### BMP, CBC #### [place] [address] USALymphocytes (Bld) [#/Vol]3.2 10*3/uLNormal1.00-4.8The [facility] Physician GroupComment on above:Performed By: #### BMP, CBC #### [place] [address] USALymphocytes/100 WBC (Bld)27.1 %Normal.The [facility] Physician GroupComment on above:Performed By: #### BMP, CBC #### [place] [address] USAMCH (RBC) [Entitic mass]32.8 zsKnsyaw85.5-35.2The [facility] Physician GroupComment on above:Performed By: #### BMP, CBC #### [place] [address] USAMCV (RBC) [Entitic vol]97.9 aZDeaojn89.5-101The [facility] Physician GroupComment on above:Performed By: #### BMP, CBC #### [place] [address] USAMean Corpuscular HGB Conc33.5 g/aOCjurbj75.5-35.6The [facility] Physician GroupComment on above:Performed By: #### BMP, CBC #### [place] [address] USAMonocytes (Bld) [#/Vol]1.0 10*3/uLHigh0.0-0.8The [facility] Physician GroupComment on above:Performed By: #### BMP, CBC #### [address] [place] [address] USAMonocytes/100 WBC (Bld)8.8 %Normal.The [facility] Physician GroupComment on above:Performed By: #### BMP, CBC #### [place] [address] USANeutrophils (Bld) [#/Vol]7.3 10*3/uLNormal1.8-7.7The [facility] Physician GroupComment on above:Performed By: #### BMP, CBC #### [place] [address] USANeutrophils/100 WBC (Bld)62.5 %Normal.The [facility] Physician GroupComment on above:Performed By: #### BMP, CBC #### [place] [address] USANRBC%0.1 /100{WBC}Normal0-0.5The [facility]ician Group Comment on above:Performed By: #### BMP, CBC #### [place] [address] USAPlatelet mean volume (Bld) [Entitic vol]9.2 fLNormal 6.6-10.1The [facility] Physician GroupComment on above:Performed By: #### BMP, CBC #### [place] [address] USAPlatelets (Bld) [#/Vol]235 10*3/sTFtvono115-879Qci [facility] Physician GroupComment on above:Performed By: #### BMP, CBC #### [place] [address] USARBC (Bld) [#/Vol]4.00 10*6/uLNormal3.90-5.60The [facility] Physician GroupComment on above:Performed By: #### BMP, CBC #### [place] [address] USAWBC (Bld) [#/Vol]11.7 10*3/uLHigh4.1-10.5The [facility] Physician GroupComment on above:Performed By: #### BMP, CBC #### [place] [address] USABasic Metabolic Panelon 79-36-9872Uiooh gap [Moles/Vol] 11.7 mmol/LNormal6.0-15.0The [facility] Physician GroupComment on above:Performed By: #### PTT, HEPATIC, BMP, PT #### [place] [address] USACalcium [Mass/Vol]8.8 mg/dLNormal8.6-10.3The [facility] Physician GroupComment on above:Performed By: #### PTT, HEPATIC, BMP, PT #### [place] [address] USAChloride [Moles/Vol]108 mmol/LPmpp97-479Zps [facility] Physician GroupComment on above:Performed By: #### PTT, HEPATIC, BMP, PT #### [place] [address] USACO2 [Moles/Vol]24.4 mmol/SRopkwv98.0-31.0The [facility] Physician GroupComment on above:Performed By: #### PTT, HEPATIC, BMP, PT #### [place] [address] USACreatinine [Mass/Vol]1.34 mg/dLHigh0.70-1.30The [facility] Physician GroupComment on above:Performed By: #### PTT, HEPATIC, BMP, PT #### [place] [address] USACreatinine Clr Calc Iscdrjum48.59NormalThe [facility] Physician GroupComment on above:Result Comment: PERFORMED BY: [place] [address] PATHOLOGIST BLOCK[employer] AND SEW[employer] ROBERTO OCAMPO M.D.Performed By: #### PTT, HEPATIC, BMP, PT #### [place] [address] USAGFR/1.73 sq M.predicted MDRD (S/P/Bld) [Vol rate/Area] mL/min/{1.73_m2}NormalThe [facility] Physician GroupComment on above:Performed By: #### PTT, HEPATIC, BMP, PT #### [facility] [address] [place] [address] USAGlucose [Mass/Vol]115 mg/bIPnpc61-486Opz [facility] Physician GroupComment on above:Result Comment: Random Glucose Reference Range is dependent on time and content of last meal. Glucose of more than 200 mg/dL in a nonstressed, ambulatory subject supports the diagnosis of Diabetes Mellitus. ADA recommended reference rangePerformed By: #### PTT, HEPATIC, BMP, PT #### [place] [address] USAPotassium [Moles/Vol]4.1 mmol/LNormal3.5-5.1The [facility] Physician GroupComment on above:Performed By: #### PTT, HEPATIC, BMP, PT #### [place] [address] USASodium [Moles/Vol]140 mmol/CGzafgw275-932Aha [facility] Physician GroupComment on above:Performed By: #### PTT, HEPATIC, BMP, PT #### [place] [address] USAUrea nitrogen [Mass/Vol]33 mg/dLHigh7-25The [facility] Physician GroupComment on above:Performed By: #### PTT, HEPATIC, BMP, PT #### [place] [address] USABlood Cultureon 92-98-5066Tbvypohl identified Cx Nom (Bld) NO GROWTH 5 DAYS PERFORMED BY: [place] [address] PATHOLOGIST BLOCKER AND SEWER ROBERTO OCAMPO M.D.NormalThe [facility] Physician GroupComment on above:Performed By: #### CUBLD #### [place] [address] USAComplete Blood Count Auto Diffon 17-39-1229Znwrzgbtn (Bld) [#/Vol]0.0 10*3/uLNormal0.0-0.2The [facility] Physician GroupComment on above: Result Comment: PERFORMED BY: [place] [address] PATHOLOGIST BLOCKER AND SEWER ROBERTO OCAMPO M.D.Performed By: #### PTT, HEPATIC, BMP, PT #### [place] [address] USABasophils/100 WBC (Bld)0.1 %Normal.The [facility] Physician GroupComment on above:Performed By: #### PTT, HEPATIC, BMP, PT #### [place] [address] USAEosinophils (Bld) [#/Vol]0.0 10*3/uLNormal0.0-0.45The [facility] Physician GroupComment on above:Performed By: #### PTT, HEPATIC, BMP, PT #### [place] [address] USAEosinophils/100 WBC (Bld)0.0 %Normal.The [facility] Physician GroupComment on above:Performed By: #### PTT, HEPATIC, BMP, PT #### [place] [address] USAErythrocyte distribution width (RBC) [Ratio]14.3 %Normal 12.0-14.8The [facility] Physician GroupComment on above:Performed By: #### PTT, HEPATIC, BMP, PT #### [place] [address] USAHematocrit (Bld) [Volume fraction]36.9 %Low38.8-50.0The [facility] Physician GroupComment on above:Performed By: #### PTT, HEPATIC, BMP, PT #### [place] [address] USAHemoglobin (Bld) [Mass/Vol]12.1 g/dLLow13.0-17.0The [facility] Physician GroupComment on above:Performed By: #### PTT, HEPATIC, BMP, PT #### [place] [address] USALymphocytes (Bld) [#/Vol]2.0 10*3/uLNormal1.00-4.8The [facility] Physician GroupComment on above:Performed By: #### PTT, HEPATIC, BMP, PT #### [facility] [address] [place] [address] USALymphocytes/100 WBC (Bld)11.4 %Normal.The [facility] Physician GroupComment on above:Performed By: #### PTT, HEPATIC, BMP, PT #### [address] (RBC) [Entitic mass]32.2 rkJgkngd80.5-35.2The [facility] Physician GroupComment on above:Performed By: #### PTT, HEPATIC, BMP, PT #### [address] (RBC) [Entitic vol]98.1 qYBuxqhz99.5-101The [facility] Physician GroupComment on above:Performed By: #### PTT, HEPATIC, BMP, PT #### [place] [address] USAMean Corpuscular HGB Conc32.9 g/yCCrguke23.5-35.6The [facility] Physician GroupComment on above:Performed By: #### PTT, HEPATIC, BMP, PT #### [place] [address] USAMonocytes (Bld) [#/Vol]1.4 10*3/uLHigh0.0-0.8The [facility] Physician GroupComment on above:Performed By: #### PTT, HEPATIC, BMP, PT #### [place] [address] USAMonocytes/100 WBC (Bld)7.9 %Normal.The [facility] Physician GroupComment on above:Performed By: #### PTT, HEPATIC, BMP, PT #### [place] [address] USANeutrophils (Bld) [#/Vol]14.0 10*3/uLHigh1.8-7.7The [facility] Physician GroupComment on above:Performed By: #### PTT, HEPATIC, BMP, PT #### [facility] [address] [place] [address] USANeutrophils/100 WBC (Bld)80.6 %Normal.The [facility] Physician GroupComment on above:Performed By: #### PTT, HEPATIC, BMP, PT #### [facility] [address] [place] [address] USANRBC%0.1 /100{WBC}Normal0-0.5The [facility]ician Group Comment on above:Performed By: #### PTT, HEPATIC, BMP, PT #### [facility] [address] [place] [address] USAPlatelet mean volume (Bld) [Entitic vol]9.4 fLNormal 6.6-10.1The [facility] Physician GroupComment on above:Performed By: #### PTT, HEPATIC, BMP, PT #### [place] [address] USAPlatelets (Bld) [#/Vol]233 10*3/aGKebfha732-092Qyw [facility] Physician GroupComment on above:Performed By: #### PTT, HEPATIC, BMP, PT #### [place] [address] USARBC (Bld) [#/Vol]3.77 10*6/uLLow3.90-5.60The [facility] Physician GroupComment on above:Performed By: #### PTT, HEPATIC, BMP, PT #### [place] [address] USAWBC (Bld) [#/Vol]17.3 10*3/uLHigh4.1-10.5The [facility] Physician GroupComment on above:Performed By: #### PTT, HEPATIC, BMP, PT #### [place] [address] USABasic Metabolic Panelon 82-05-7684Wpwow gap [Moles/Vol] 12.1 mmol/LNormal6.0-15.0The [facility] Physician GroupComment on above:Performed By: #### BMP, CBC #### [address] [place] [address] USACalcium [Mass/Vol]8.6 mg/dLNormal8.6-10.3The [facility] Physician GroupComment on above:Performed By: #### BMP, CBC #### [facility] [address] [place] [address] USAChloride [Moles/Vol]107 mmol/OIgjymq43-011Asc [facility] Physician GroupComment on above:Performed By: #### BMP, CBC #### [facility] [address] [place] [address] USACO2 [Moles/Vol]21.6 mmol/MIwtrfq04.0-31.0The [facility] Physician GroupComment on above:Performed By: #### BMP, CBC #### [place] [address] USACreatinine [Mass/Vol]1.29 mg/dLNormal0.70-1.30The [facility] Physician GroupComment on above:Performed By: #### BMP, CBC #### [place] [address] USACreatinine Clr Calc Hkmxtxwl54.75NormalThe [facility] Physician GroupComment on above:Performed By: #### BMP, CBC #### [place] [address] USAGFR/1.73 sq M.predicted MDRD (S/P/Bld) [Vol rate/Area] mL/min/{1.73_m2}NormalThe [facility] Physician GroupComment on above:Performed By: #### BMP, CBC #### [place] [address] USAGlucose [Mass/Vol]194 mg/wGWcyq46-009Yar [facility] Physician GroupComment on above:Result Comment: Random Glucose Reference Range is dependent on time and content of last meal. Glucose of more than 200 mg/dL in a nonstressed, ambulatory subject supports the diagnosis of Diabetes Mellitus. ADA recommended reference rangePerformed By: #### BMP, CBC #### [place] [address] USAPotassium [Moles/Vol]3.7 mmol/LNormal3.5-5.1The [facility] Physician GroupComment on above:Performed By: #### BMP, CBC #### [place] [address] USASodium [Moles/Vol]137 mmol/YYrqyjp744-498Usr [facility] Physician GroupComment on above:Performed By: #### BMP, CBC #### [place] [address] USAUrea nitrogen [Mass/Vol]27 mg/dLHigh7-25The [facility] Physician GroupComment on above:Performed By: #### BMP, CBC #### [place] [address] USAComplete Blood Count Auto Diffon 99-93-5554Ywvnnxqje (Bld) [#/Vol]0.0 10*3/uLNormal0.0-0.2The [facility] Physician GroupComment on above: Result Comment: PERFORMED BY: [place] [address] PATHOLOGIST [employer] AND SEW[employer] ROBERTO OCAMPO M.D.Performed By: #### BMP, CBC #### [place] [address] USABasophils/100 WBC (Bld)0.2 %Normal.The [facility] Physician GroupComment on above:Performed By: #### BMP, CBC #### [place] [address] USAEosinophils (Bld) [#/Vol]0.0 10*3/uLNormal0.0-0.45The [facility] Physician GroupComment on above:Performed By: #### BMP, CBC #### [place] [address] USAEosinophils/100 WBC (Bld)0.0 %Normal.The [facility] Physician GroupComment on above:Performed By: #### BMP, CBC #### [place] [address] USAErythrocyte distribution width (RBC) [Ratio]14.3 %Normal 12.0-14.8The [facility] Physician GroupComment on above:Performed By: #### BMP, CBC #### [place] [address] USAHematocrit (Bld) [Volume fraction]37.6 %Low38.8-50.0The [facility] Physician GroupComment on above:Performed By: #### BMP, CBC #### [place] [address] USAHemoglobin (Bld) [Mass/Vol]12.7 g/dLLow13.0-17.0The [facility] Memorial Hospital Physician GroupComment on above:Performed By: #### BMP, CBC #### [place] [address] USALymphocytes (Bld) [#/Vol]0.9 10*3/uLLow1.00-4.8The [facility] Physician GroupComment on above:Performed By: #### BMP, CBC #### [place] [address] USALymphocytes/100 WBC (Bld)5.4 %Normal.The [facility] Physician GroupComment on above:Performed By: #### BMP, CBC #### [place] [address] USAMCH (RBC) [Entitic mass]33.1 ruWtpsuy15.5-35.2The [facility] Physician GroupComment on above:Performed By: #### BMP, CBC #### [place] [address] USAMCV (RBC) [Entitic vol]97.6 cWCcwzds60.5-101The [facility] Physician GroupComment on above:Performed By: #### BMP, CBC #### [place] [address] USAMean Corpuscular HGB Conc33.9 g/yXKqbisz16.5-35.6The [facility] Physician GroupComment on above:Performed By: #### BMP, CBC #### [place] [address] USAMonocytes (Bld) [#/Vol]0.6 10*3/uLNormal0.0-0.8The [facility] Physician GroupComment on above:Performed By: #### BMP, CBC #### [facility] [address] [place] [address] USAMonocytes/100 WBC (Bld)3.6 %Normal.The [facility] Physician GroupComment on above:Performed By: #### BMP, CBC #### [facility] [address] [place] [address] USANeutrophils (Bld) [#/Vol]15.9 10*3/uLHigh1.8-7.7The [facility] Physician GroupComment on above:Performed By: #### BMP, CBC #### [facility] [address] [place] [address] USANeutrophils/100 WBC (Bld)90.8 %Normal.The [facility] Physician GroupComment on above:Performed By: #### BMP, CBC #### [facility] [address] [place] [address] USANRBC%0.0 /100{WBC}Normal0-0.5The [facility] Comment on above:Performed By: #### BMP, CBC #### [facility] [address] [place] [address] USAPlatelet mean volume (Bld) [Entitic vol]9.3 fLNormal 6.6-10.1The [facility] Physician GroupComment on above:Performed By: #### BMP, CBC #### [facility] [address] [place] [address] USAPlatelets (Bld) [#/Vol]207 10*3/nKQeywrj555-750Rfv [facility] Physician GroupComment on above:Performed By: #### BMP, CBC #### [facility] [address] [place] [address] USARBC (Bld) [#/Vol]3.85 10*6/uLLow3.90-5.60The [facility] Physician GroupComment on above:Performed By: #### BMP, CBC #### [facility] [address] [place] [address] USAWBC (Bld) [#/Vol]17.5 10*3/uLHigh4.1-10.5The [facility] Physician [facility] Watkins [facility] HospitalComment on above:Performed By: #### BMP, CBC #### [facility] [address] [place] [address] USACreatine Kinaseon 07-41-4006TM [Catalytic activity/Vol]198 U/BZwdecj19-094Lxj [facility] Physician GroupComment on above:Performed By: #### BMP, CBC #### [facility] [address] [place], [place] [address] USAECG 12 lead ECGon 69-69-3614PKK 12 lead ECGUNIVERSITY [facility] Main [place] [address] [place] [address] Electrocardiograph Report Signed Patient: Rob Ray MR#: [id number] 0 : 1965 Acct:[id number] Age/Sex: 58 / M ADM Date: 05/24/23 Loc: Room: [address] [place] [address] Type: ADM IN Attending Dr: Arturo Dolan [...] Signed By Linh Paz MD 0 05/25/23 1440NoSelect [facility]ty [facility] Physician GroupECH echo transthoracicon 92-96-2627RMB echo transthoracicUNIVERSITY [facility] Main [place] [address] [place] [address] Echocardiogram Signed Patient: Rob Ray MR#: [id number] 0 : 1965 Acct:[id number] Age/Sex: 58 / M ADM Date: 05/24/23 Loc: Room: [address] [place] [address] Type: ADM IN Attending Dr: Arturo Dolan [...] 1033 Signed By: Linh Paz MD 05/25/23 1150NormAdventHealth [facility] ER Physician GroupMagnesiumon 97-11-2743Spvrwepiy [Mass/Vol]1.9 mg/dLNormal1.9-2.7The [facility] Physician [facility] HospitalComment on above:Result Comment: PERFORMED BY: [place] [address] PATHOLOGIST BLOCKER AND SEWER ROBERTO OCAMPO M.D.Performed By: #### BMP, CBC #### [facility] [address] [place] [address] USATroponin I High Sensitivityon 38-94-4804Utdqzfih I High Sensitivity7.0 pg/mLNormal0.0-20.0The [facility] Physician [facility] HospitalComment on above: Result Comment: PERFORMED BY: [place] [address] PATHOLOGIST BLOCKER AND SEWER ROBERTO OCAMPO M.D.Performed By: #### BMP, CBC #### [facility] [address] [place] [address] USAA1C with Estimated Average Gluon 94-83-1239Clkckfz [Mass/Vol]131 mg/dLNormalThSt. Luke's [facility] Physician GroupComment on above:Result Comment: PERFORMED BY: [facility] [address] [place] [address] PATHOLOGIST BLOCKER AND SEWER ROBERTO OCAMPO M.D.Performed By: #### PTT, HEPATIC, BMP, PT #### [facility] [address] [place] [address] WASQhG3l (Bld) [Mass fraction]6.2 %High4.3-5.6The [facility] Physician [facility] HospitalComment on above:Result Comment: Increased risk for diabetes: 5.7 - 6.4 diabetes: >6.4 glycemic control for adults with diabetes: <7.0Performed By: #### PTT, HEPATIC, BMP, PT #### [facility] [address] [place] [address] USAActivated partial thromboplastin time (aPTT) in platelet poor plasma by coagulation aOrdered By: Ria Talamantes on 44-21-8653pHGX Coag (PPP) [Time]27.5 s25.1-36.5FBucyrus Community HospitalComment on above:A hematocrit value greater than 55% may lead to inaccurate results in coagulation testing. Patientshaving hematocrit values >55% require a special collection tube for coagulation studies. Please contact the laboratory at [phone] for redraw instructions.Aerobic Cultureon 30-05-0850Evrxcvj CultureResult Tab Codes Moderate Normal Respiratory [place] 2 Days Gram Stain Result 1+ Gram Positive Cocci in Clusters 1+ Gram Negative Bacilli 1+ White Blood Cells 1+ Epithelial Cells * This is a corrected result. * A prior result that was reported as final has been changed. PERFORMED BY: [facility] [address] [place] [address] PATHOLOGIST BLOCKER AND SEWER ROBERTO OCAMPO M.D.NormalThe [facility] Physician GroupComment on above:Performed By: #### PTT, HEPATIC, BMP, PT #### [facility] [address] [place] [address] USAAutomated basophil %Ordered By: Ria Saffle on 84-39-7415Czbyoxstq/100 WBC (Bld)0.5 %Normal.[facility] Comment on above:Performed By: #### BMP, CBC #### [facility] [address] [place] [address] USAAutomated basophil countOrdered By: Ria Saffle on 36-04-7371Tacoxycjy (Bld) [#/Vol]0.1 10*3/uLNormal0.0-0.2FBucyrus Community HospitalComment on above:Result Comment: PERFORMED BY: [place] [address] PATHOLOGIST BLOCKER AND SEWER ROBERTO OCAMPO M.D.Performed By: #### BMP, CBC #### [place] [address] USAAutomated blood monocyte countOrdered By: Ria Saffle on 14-47-4337Swcxyymgu (Bld) [#/Vol]0.9 10*3/uLHigh0.0-0.8L[facility] Memorial HospitalComment on above:Performed By: #### BMP, CBC #### [facility] [address] [place] [address] USAAutomated eosinophil %Ordered By: Ria Saffle on 26-76-3013Wxmyaasyfqt/100 WBC (Bld)0.9 %Normal.[facility] Comment on above:Performed By: #### BMP, CBC #### [facility] [address] [place] [address] USAAutomated eosinophil countOrdered By: Ria Saffle on 40-54-2022Ndvjiaylutc (Bld) [#/Vol]0.1 10*3/uLNormal0.0-0.45Fire[facility] Regional Medical CenterComment on above:Performed By: #### BMP, CBC #### [facility] [address] [place] [address] USAAutomated erythrocytes count in urine sediment (number/area)Ordered By: Ria Talamantes on 17-28-6356OEJ Auto (Urine sed) [#/Area]None seen [HPF]0-4FBucyrus Community HospitalAutomated leukocytes count in urine sediment (number/area)Ordered By: Ria Talamantes on 05-24-2023 WBC Auto (Urine sed) [#/Area]None seen [HPF]0-4FBucyrus Community Hospital Automated monocyte %Ordered By: Ria Charlesrosemarie on 15-80-7270Gimmcuvoo/100 WBC (Bld)5.7 %Normal.[facility] HospitalComment on above:Performed By: #### BMP, CBC #### [place] [address] USAAutomated neutrophil %Ordered By: Ria Talamantes on 93-43-3987Pjxwrcegdrg/100 WBC (Bld)86.6 %Normal.[facility] HospitalComment on above:Performed By: #### BMP, CBC #### [place] [address] USAAutomated urine color determinationOrdered By: Ria Talamantes on 18-58-5492Anvzx (U)YellowNormalYNationwide Children's Hospital Comment on above:Order Comment: Name Collection Type:: Clean-Voided Midstream Performed By: #### PTT, HEPATIC, BMP, PT #### [place] [address] USABNP ser/plasOrdered By: Ria Talamantes on 05-24-2023 Natriuretic peptide B (Bld) [Mass/Vol]221.0 pg/mLHigh5-[address] [place], [place] [address]Comment on above:Result Comment: PERFORMED BY: [place] [address] PATHOLOGIST BLOCKER AND SEWER ROBERTO COAMPO M.D.Performed By: #### BMP, CBC #### [place] [address] USABasic Metabolic Panelon 77-35-8092Skyamaxauf Clr Calc Dzjqrybw13.52NormAdventHealth TimberRidge ER Physician GroupComment on above:Result Comment: PERFORMED BY: [place] [address] PATHOLOGIST BLOCKER AND SEWER ROBERTO OCAMPO M.D.Performed By: #### BMP, CBC #### [facility] [address] [place] [address] USAGFR/1.73 sq M.predicted MDRD (S/P/Bld) [Vol rate/Area] 58.542 mL/min/{1.73_m2}NormalMemorial Hospital Miramar Physician GroupComment on above: Performed By: #### BMP, CBC #### [place] [address] USABilirubin Test strip Ql (U)Ordered By: Ria Talamantes on 06-39-1166Tkmfnnopv Ql (U)NegativeNegativeLicking Memorial HospitalBlood Cultureon 13-52-5046Kwaxzqog identified Cx Nom (Bld)NO GROWTH 5 DAYS PERFORMED BY: [place] [address] PATHOLOGIST BLOCKER AND SEWER ROBERTO OCAMPO M.D.[facility] Physician GroupComment on above:Performed By: #### PTT, HEPATIC, BMP, PT #### [facility] [address] [place], [place] [address] USABacteria identified Cx Nom (Bld)Gram Stain Gram Positive Cocci in Chains ORGANISM: Streptococcus pneumoniae (O:STRPNE) Aerobic Robles Charge (Strep) SUSCEPTIBILITY ORGANISM: O:STRPNE ANTIBIOTIC INTERPRETATION ROBLES Amoxacillin/K Clavulanate S <0.5 Cefepime S <0.25 Ceftriaxone S <0.25 Cefuroxime S <0.25 Erythromycin R >0.5 Levofloxacin S 1 Meropenem S <0.06 Penicillin S <0.03 Tetracycline S <0.5 Trimethoprim/Sulfamethoxazole S <0.25 Vancomycin S 0.5 Staphylococcus aureus [...] calcoaceticus-baumannii complex DNA [Presence] by PRITESH with non- probe detection in Positive blood culture Not detected [...] culture Not detected Group A (Streptococcus pyogenes) [id number] Not detected Group B Strep (Streptococcus agalactiae) [...] susceptibility. Results called at (more content not included)...NormalThe [facility] Physician GroupComment on above:Performed By: #### PTT, HEPATIC, BMP, PT #### [facility] [address] [place] [address] USACOVID CepheidOrdered By: Ria Talamantes on 05-24-2023 SARS-CoV-2 (COVID-19) Ab IA QlNegativeNegativeLicking Memorial Hospital Comment on above:This is a duplicate Cepheid Xpert Xpress CoV-2/Flu/RSV Plus RNA by RT-PCR result to be used for statistical tracking purpose only.SARS-CoV-2 (COVID-19) RNA PRITESH+probe Ql (Unsp spec)[facility] Memorial HospitalCOVID-19 / Flu A/B / RSV PCRon 94-38-7901FTXO-CoV-2 (COVID-19) RNA PRITESH+probe Ql (Unsp spec)COVID-19 Cepheid Result Negative for SARS-CoV-2 RNA by RT-PCR Flu A Cepheid Result Negative for Flu A RNA by RT-PCR Flu B Cepheid Result Negative for Flu B RNA by RT-PCR RSV Cepheid Result Negative for RSV RNA by RT-PCR COVID19 Blank Space Reference: Negative COVID19 Blank Space Cepheid Disclaimer The Cepheid Xpert Xpress CoV-2/Flu/RSV [...] or Cepheid Disclaimer revoked sooner. PERFORMED BY: [facility] [place] [address] PATHOLOGIST BLOCKER AND SEWER ROBERTO OCAMPO M.D.[facility] Physician GroupComment on above:Performed By: #### PTT, HEPATIC, BMP, PT #### [facility] [address] [place] [address] USACT angio chest PE protocolon 29-36-4731NT angio chest PE protocolUNIVERSITY [facility]PITALS [facility] Main [place] [address] [place] [address] CT Scan Report Signed Patient: Rob Ray MR#: [id number] 0 : 1965 Acct:[id number] Age/Sex: 58 / M ADM Date: 05/24/23 Loc: ER Room: Type: [facility] ER Attending Dr: Copies to: Ria [...] Kulwinder Miller M.D.05/24/2023 5:17 PM Dictation Location: [place] [address] Transcribed By: DARLING 05/24/23 2527 Dictated By: Kulwinder Miller DO 05/24/23 171 Signed By: 05/24/231716NoSelect Specialty Hospital - [facility] Physician GroupCalcium [Mass/volume] in Serum or PlasmaOrdered By: Ria Sotorosemarie on 33-84-7010Jkqzfkx [Mass/Vol]9.2 mg/dL Normal8.6-10.3FBucyrus Community HospitalComment on above:Performed By: #### BMP, CBC #### [place] [address] USACarbon dioxide, total [Moles/volume] in Serum or Plasma Ordered By: Ria Talamantes on 10-74-7812IP9 [Moles/Vol]22.1 mmol/LNormal 21.0-31.0[facility] HospitalComment on above:Performed By: #### BMP, CBC #### [address] [address] USACepheid COVID PCR Negativeon 31-44-3835KVAV-CoV-2 (COVID- 19) RNA PRITESH+probe Ql (Unsp spec)NegativeNormalNegativeThe [facility] Physician GroupComment on above:Result Comment: This is a duplicate Cepheid Xpert Xpress CoV-2/Flu/RSV Plus RNA by RT-PCR result to be used for statistical tracking purpose only. PERFORMED BY: [place] [id number] PATHOLOGIST BLOCKER AND SEWER ROBERTO OCAMPO M.D.Performed By: #### PTT, HEPATIC, BMP, PT #### [place] [id number] USAChloride [Moles/volume] in Serum or PlasmaOrdered By: Ria Talamantes on 74-95-1215Wsxrjwaw [Moles/Vol]105 mmol/NIzcthb47-903WmhfoneqpLicking Memorial HospitalComment on above:Performed By: #### BMP, CBC #### [address] [address] USAComplete Blood Count Auto Diffon 77-43-1293Gdde Corpuscular HGB Conc33.8 g/mLHdjfeu29.5-35.6The [facility] Physician [facility] HospitalComment on above:Performed By: #### BMP, CBC #### [facility] [address] [place] [address] USAMonocytes/100 WBC (Bld)20.36 %High0.00-20.00The [facility] Physician [facility] HospitalComment on above:Result Comment: For adults in ED, MDW > 20.0 may be associated with a higher risk of sepsis during the first 12 hrs of hospital admissionPerformed By: #### BMP, CBC #### [facility] [address] [place] [address] USANRBC%0.0 /100{WBC}Normal0-0.5The [facility] Physician [facility] Comment on above:Performed By: #### BMP, CBC #### [facility] [address] [place] [address] USACreatine Kinaseon 31-72-8612GF [Catalytic activity/Vol]251 U/SMprd15-465Xyy [facility] Physician [facility] HospitalComment on above:Performed By: #### PTT, HEPATIC, BMP, PT #### [facility] [address] [place] [address] USACreatinine [Mass/volume] in Serum or PlasmaOrdered By: Ria Talamantes on 43-12-1519Ggnzkijzyo [Mass/Vol]1.38 mg/dLHigh0.70-1.30 [facility] HospitalComment on above:Performed By: #### BMP, CBC #### [facility] [address] [place] [address] USAD-Dimer High Sensitivityon 15-13-8610Z-Dimer High Pwcgjcmcqln780 ng/mLHigh0-243The Meadows Psychiatric CenterComment on above: Result Comment: The reference range [...] coagulation studies. Please contact the laboratory at [phone] for redraw instructions. PERFORMED BY: [place] [address] PATHOLOGIST BLOCKER AND SEWER ROBERTO OCAMPO M.D.Performed By: #### PTT, HEPATIC, BMP, PT #### [place] [address] USADipstick and Microscopicon 72-57-4427Gszjayxzau (U)Clear NormalClearThe [facility] Physician GroupComment on above:Order Comment: Name Collection Type:: Clean-Voided MidstreamPerformed By: #### PTT, HEPATIC, BMP, PT #### [place] [address] USABacteria,UrineNone SeenNormalNone SeenThe [facility] Physician GroupComment on above:Order Comment: Name Collection Type:: Clean- Voided MidstreamPerformed By: #### PTT, HEPATIC, BMP, PT #### [place] [address] USABilirubin,UrineNegativeNormalNegativeThe [facility] Physician GroupComment on above:Order Comment: Name Collection Type:: Clean- Voided MidstreamPerformed By: #### PTT, HEPATIC, BMP, PT #### [place] [address] USAGlucose Ql (U)NormalNormalNormalThe [facility] Physician GroupComment on above:Order Comment: Name Collection Type:: Clean-Voided MidstreamPerformed By: #### PTT, HEPATIC, BMP, PT #### [place] [address] USAHyaline Casts,Wypxg7-3Sjunpn0-0Dpv [facility] Physician GroupComment on above:Order Comment: Name Collection Type:: Clean-Voided MidstreamResult Comment: PERFORMED BY: [address] [place] [address] PATHOLOGIST BLOCKER AND SEWER ROBERTO OCAMPO M.D.Performed By: #### PTT, HEPATIC, BMP, PT #### [place] [address] USAKetones Ql (U)NegativeNormalNegativeThe [facility] Physician GroupComment on above:Order Comment: Name Collection Type:: Clean- Voided MidstreamPerformed By: #### PTT, HEPATIC, BMP, PT #### [place] [address] USALeukocyte esterase Test strip Ql (U)NegativeNormalNegative The [facility] Physician GroupComment on above:Order Comment: Name Collection Type:: Clean-Voided MidstreamPerformed By: #### PTT, HEPATIC, BMP, PT #### [place] [address] USANitrite,UrineNegativeNormalNegativeThe [facility] Physician GroupComment on above:Order Comment: Name Collection Type:: Clean-Voided MidstreamPerformed By: #### PTT, HEPATIC, BMP, PT #### [place] [address] USAOccult Blood,UrineNegativeNormalNegativeThe [facility] Physician GroupComment on above:Order Comment: Name Collection Type:: Clean- Voided MidstreamResult Comment: PERFORMED BY: [place] [address] PATHOLOGIST BLOCKER AND SEWER ROBERTO OCAMPO M.D.Performed By: #### PTT, HEPATIC, BMP, PT #### [facility] [address] [place] [address] USARBC,UrineNone SeenNormal0-4The [facility] Physician Group Comment on above:Order Comment: Name Collection Type:: Clean-Voided Midstream Performed By: #### PTT, HEPATIC, BMP, PT #### [place] [address] USASpecificy Howell,Urine1.710Kbxhwe4.001-1.030The [facility] Physician GroupComment on above:Order Comment: Name Collection Type:: Clean- Voided MidstreamPerformed By: #### PTT, HEPATIC, BMP, PT #### [facility] [address] [place] [address] USASquamous Epithelial Cell,UrineNone SeenNormal0-2The [facility] Physician GroupComment on above:Order Comment: Name Collection Type:: Clean-Voided MidstreamPerformed By: #### PTT, HEPATIC, BMP, PT #### [facility] [address] [place] [address] USAUrobilinogen,UrineNormalNormalNormalThe [facility] Physician GroupComment on above:Order Comment: Name Collection Type:: Clean- Voided MidstreamPerformed By: #### PTT, HEPATIC, BMP, PT #### [facility] [address] [place] [address] USAWBC,UrineNone SeenNormal0-4The [facility] Physician Group Comment on above:Order Comment: Name Collection Type:: Clean-Voided Midstream Performed By: #### PTT, HEPATIC, BMP, PT #### [place] [address] USAECG 12 lead ECGon 59-38-3657RWA 12 lead ECGUNIVERSITY HOSPITALS [facility] Main [place] [address] [place] [address] Electrocardiograph Report Signed Patient: Rob Ray MR#: [id number] 0 : 1965 Acct:[id number] Age/Sex: 58 / M ADM Date: 05/24/23 Loc: Room: [address] [place] [address] Type: ADM IN Attending Dr: Arturo Dolan [...] MUS Signed By Nino Garrido MD 05/24/[address] [place] [address] Physician GroupErythrocyte distribution width [Ratio] by Automated countOrdered By: Ria Talamantes on 19-01-8153Rjxftpykbbn distribution width (RBC) [Ratio]13.9 %Jiulah41.0-14.8[facility] HospitalComment on above:Performed By: #### BMP, CBC #### [facility] [address] [place] [address] USAErythrocytes [#/volume] in Blood by Automated countOrdered By: Ria Talamantes on 91-55-1630USA (Bld) [#/Vol]4.47 10*6/uLNormal3.90-5.60 [facility] HospitalComment on above:Performed By: #### BMP, CBC #### [facility] [address] [place] [address] USAFibrin D-dimer [Presence] in Platelet poor plasma by Latex agglutinationOrdered By: Ria Talamantes on 22-48-8945Pmcirj D-dimer LA Ql (PPP)296 ng/mL0-243[facility] HospitalComment on above:The reference range for D-dimer is <243 ng/mL D-dimer units.D-dimer results must be used in conjunction with a clinicalpretest probability (PTP) assessment model for deep veinthrombosis (DVT) and pulmonary embolism (PE). Results <230ng/mL d- dimer units can be used as a negative predictor inpatients with low or moderate probability for DVT/PE.Results above the exclusion threshold of 230 ng/ml D- dimerunits for DVT/PE may indicate the need for furtherdiagnostic testing.D- Dimer can be increased in hospitalized patients due toco-morbid conditions.A hematocrit value greater than 55% may lead to inaccurate results in coagulation testing. Patients having hematocrit values >55% require a special collection tube for coagulation studies. Please contact the laboratory at [phone] for redraw instructions.Free T4 (Free Thyroxine)on 02-88-2921Wlgc T4 [Mass/Vol]0.88 ng/dLNormal0.61-1.12The [facility] Physician GroupComment on above:Performed By: #### PTT, HEPATIC, BMP, PT #### [address] [address] USAGlucose [Mass/volume] in Serum or PlasmaOrdered By: Ria Talamantes on 41-09-4740Gjrtnpj [Mass/Vol]110 mg/qVWizq36-134YdexsqugyLicking Memorial HospitalComment on above:ADA recommended reference rangeRandom Glucose Reference Range is dependent on time and content of last meal. Glucose of more than 200 mg/dL in a nonstressed, ambulatory subject supports the diagnosisof Diabetes Mellitus.Result Comment: Random Glucose Reference Range is dependent on time and content of last meal. Glucose of more than 200 mg/dL in a nonstressed, ambulatory subject supports the diagnosis of Diabetes Mellitus. ADA recommended reference rangePerformed By: #### BMP, CBC #### [address] [address] USAGram Stainon 96-10-6369Mzybzrbiaoj observation Gram stain Nom (Unsp spec)Gram Stain Result 1+ Gram Positive Cocci in Clusters 1+ Gram Negative Bacilli 1+ White Blood Cells 1+ Epithelial Cells * This is a corrected result. * A prior result that was reported as final has been changed. PERFORMED BY: [address] [place] [address] PATHOLOGIST BLOCKER AND SEWER ROBERTO OCAMPO M.D.NormalMemorial Hospital Miramar Physician GroupComment on above:Performed By: #### PTT, HEPATIC, BMP, PT #### [address] [address] USAHematocrit [Volume Fraction] of Blood by Automated count Ordered By: Ria Talamantes on 07-98-7224Egscsbdiam (Bld) [Volume fraction]43.2 %Iotloe03.8-50.0[facility] HospitalComment on above:Performed By: #### BMP, CBC #### [facility] [address] [place] [address] USAHemoglobin [Mass/volume] in BloodOrdered By: Ria Talamantes on 94-62-7885Ymxpvziqoe (Bld) [Mass/Vol]14.6 g/aRYpahye15.0-17.0[facility] HospitalComment on above:Performed By: #### BMP, CBC #### [facility] [address] [place] [address] USAINR in Platelet poor plasma by Coagulation assayOrdered By: Ria Talamantes on 87-62-9641PQU Coag (PPP) [Relative time]1.1 {INR}Normal [facility] HospitalComment on above:INR Therapeutic Range A) Pre- and Peroperative OAT started two weeks before surgery. NOT HIP SURGERY: 1.5 - 2.5 HIP SURGERY: 2 - 3B) Primary and secondary prevention of venous THROMBOSIS: 2 - 3C) Active venous thrombosis, pulmonary embolismand prevention of recurrent venous thrombosis: 2 - 3D) Prevention of arterial thromboembolismincluding patients with mechanical heart valves: 3 - 4.5Result Comment: INR Therapeutic Range A) Pre- and [...] patients with mechanical heart valves: 3 - 4.5Performed By: #### PTT, HEPATIC, BMP, PT #### [facility] [address] [place] [address] USAKetones Auto test strip (U) [Mass/Vol]Ordered By: Ria Talamantes on 03-27-3711Cvdulqo (U) [Mass/Vol]NegativeNegativeLicking Memorial HospitalLab Vitaliy Thyroxine (T4)on 22-40-4518B2 [Mass/Vol]6.9 ug/dLNormal 4.5-12.0The [facility] Physician GroupComment on above:Result Comment: Performed at: - [facility] [address] [id number] Cadmium Burner: Edwin Nazario PhD, Phone: [phone] PERFORMED BY: [place] [address] PATHOLOGIST BLOCKER AND SEWER ROBERTO OCAMPO M.D.Performed By: #### LC T4 #### [facility] ,Laboratory - UrinalysisOrdered By: Ria Talamantes on 78-67-9451Uiwqrdg casts LM Ql (Urine sed)0-8 [LPF]0-8L[facility] Memorial HospitalLactate [Moles/volume] in Serum or PlasmaOrdered By: Ria Talamantes on 05-24-2023 Lactate [Moles/Vol]1.8 mmol/LNormal0.5-2.2FBucyrus Community Hospital Comment on above:Result Comment: PERFORMED BY: [place] [address] PATHOLOGIST BLOCKER AND SEWER ROBERTO OCAMPO M.D.Performed By: #### PTT, HEPATIC, BMP, PT #### [facility] [address] [place] [address] USALeukocytes [#/volume] corrected for nucleated erythrocytes in Blood by Automated counOrdered By: Ria Talamantes on 34-83-2351QJO corrected for nucl RBC Auto (Bld) [#/Vol]15.3 10*3/uL4.1-10.5FBucyrus Community HospitalLeukocytes [#/volume] in Blood by Automated countOrdered By: Ria Talamantes on 03-80-0300EAM (Bld) [#/Vol]15.3 10*3/uLHigh4.1-10.5FBucyrus Community HospitalComment on above:Performed By: #### BMP, CBC #### [facility] [address] [place] [address] USALymphocytes [#/volume] in Blood by Automated countOrdered By: Ria Talamantes on 41-65-6335Jngzwlnmhnf (Bld) [#/Vol]1.0 10*3/uLNormal 1.00-4.8L[facility] HospitalComment on above:Performed By: #### BMP, CBC #### [facility] [address] [place] [address] USALymphocytes/100 leukocytes in Blood by Automated count Ordered By: Ria Talamantes on 09-93-6851Qhqduexkoks/100 WBC (Bld)6.3 %Normal. [facility] HospitalComment on above:Performed By: #### BMP, CBC #### [address] [Entitic mass] by Automated countOrdered By: Ria Talamantes on 57-08-4850CKO (RBC) [Entitic mass]32.7 gcPfwaty68.5-35.2FBucyrus Community HospitalComment on above:Performed By: #### BMP, CBC #### [facility] [address] [place] [address] Auto (RBC) [Mass/Vol]Ordered By: Ria Talamantes on 93-53-9859CMYV (RBC) [Mass/Vol]33.8 g/dL32.5-35.6FBucyrus Community HospitalMCV [Entitic volume] by Automated countOrdered By: Ria Talamantes on 50-54-2576DAE (RBC) [Entitic vol]96.7 hJEdpiur17.5-101L[facility] HospitalComment on above:Performed By: #### BMP, CBC #### [facility] [address] [place] [address] USAMagnesium [Mass/volume] in Serum or PlasmaOrdered By: Ria Talamantes on 64-87-6845Vemrrwrwo [Mass/Vol]1.9 mg/dLNormal1.9-2.7FBucyrus Community HospitalComment on above:Result Comment: PERFORMED BY: [address] [place] [address] PATHOLOGIST BLOCKER AND SEWER ROBETRO OCAMPO M.D.Performed By: #### BMP, CBC #### [place] [id number] USAMonocyte distribution width [Entitic volume] in Blood by AutomatedOrdered By: Ria Talamantes on 28-33-5484Vgccnirk distribution width Auto (Bld) [Entitic vol]20.36 %0.00-20.00[facility] Comment on above:For adults in ED, MDW > 20.0 may be associated with a higher risk of sepsis during the first 12 hrs of hospital admissionNeutrophils [#/volume] in Blood by Automated countOrdered By: Ria Talamantes on 05-24-2023 Neutrophils (Bld) [#/Vol]13.3 10*3/uLHigh1.8-7.7FBucyrus Community HospitalComment on above:Performed By: #### BMP, CBC #### [facility] [address] [place], [place] [id number] USANitrite Test strip Ql (U)Ordered By: Ria Talamantes on 88-19-8613Xtuhgto Ql (U)NegativeNegativeLicking Memorial HospitalNo Panel InformationOrdered By: Ria Talamantes on 98-69-3782Gsocsiftc GFR (CKD-EPI)58.542 mL/MinLicking Memorial HospitalPharmacy Creatinine Clearance (Chem79.52Licking Memorial HospitalNucleated erythrocytes [Presence] in Blood by Automated countOrdered By: Ria Talamantes on 05-24-2023 Nucleated RBC Auto Ql (Bld)0.0 /100{WBC}0-0.5FBucyrus Community Hospital Partial Thromboplastin Timeon 35-14-5557wAIT Coag (Bld) [Time]27.5 sNormal 25.1-36.5The [facility] Physician GroupComment on above:Result Comment: A hematocrit value greater than 55% may lead to inaccurate results in coagulation testing. Patients having hematocrit values >55% require a special collection tube for coagulation studies. Please contact the laboratory at [phone] for redraw instructions. PERFORMED BY: [place] [address] PATHOLOGIST BLOCKER AND SEWER ROBERTO OCAMPO M.D.Performed By: #### PTT, HEPATIC, BMP, PT #### [facility] [address] [place] [address] USAPlatelet mean volume [Entitic volume] in Blood by Automated countOrdered By: Ria Talamantes on 11-48-5996Ycvzbbzu mean volume (Bld) [Entitic vol]9.6 fLNormal6.6-10.1FBucyrus Community HospitalComment on above:Performed By: #### BMP, CBC #### [facility] [address] [place] [address] USAPlatelets [#/volume] in Blood by Automated countOrdered By: Ria Talamantes on 78-78-7181Gxedrrskn (Bld) [#/Vol]246 10*3/dWAectoy158-033 [facility] HospitalComment on above:Performed By: #### BMP, CBC #### [facility] [address] [place] [address] USAPotassium [Moles/volume] in Serum or PlasmaOrdered By: Ria Talamantes on 21-76-0998Mgjxezfzb [Moles/Vol]4.1 mmol/LNormal3.5-5.1 [facility] HospitalComment on above:Performed By: #### BMP, CBC #### [facility] [address] [place] [address] USAProthrombin time (PT)Ordered By: Ria Talamantes on 29-67-4335DS Coag (PPP) [Time]12.8 sNormal9.0-12.9L[facility] Memorial HospitalComment on above:A hematocrit value greater than 55% may lead to inaccurate results in coagulation testing. Patientshaving hematocrit values >55% require a special collection tube for coagulation studies. Please contact the laboratory at [phone] for redraw instructions.Result Comment: A hematocrit value greater than 55% may lead to inaccurate results in coagulation testing. Patients having hematocrit values >55% require a special collection tube for coagulation studies. Please contact the laboratory at [phone] for redraw instructions.Performed By: #### PTT, HEPATIC, BMP, PT #### [place] [address] USASerum or plasma anion gap determinationOrdered By: Ria Talamantes on 03-05-5481Ixtny gap [Moles/Vol]13.0 mmol/LNormal6.0-15.0 [facility] HospitalComment on above:Performed By: #### BMP, CBC #### [place] [id number] USASodium [Moles/volume] in Serum or PlasmaOrdered By: Ria Talamantes on 32-70-6409Fjxzhq [Moles/Vol]136 mmol/YAjaajw253-900BrrshqfotLicking Memorial HospitalComment on above:Performed By: #### BMP, CBC #### [place] [id number] USASpecific gravity Auto test strip (U) [Rel density]Ordered By: Ria Talamantes on 62-36-5850Tdmmzctp gravity (U) [Rel density]1.021 1.001-1.030Providence Hospitalquamous epithelial cells detection in urine sediment by light microscopyOrdered By: Ria Talamantes on 05-24-2023 Epithelial cells.squamous LM Ql (Urine sed)None seen [HPF]0-2FBucyrus Community HospitalThyroid Stimulating Hormoneon 38-16-6223CAU Qn1.10 m[IU]/LNormal 0.45-5.33The [facility] Physician GroupComment on above:Result Comment: PERFORMED BY: [address] [place] [id number] PATHOLOGIST BLOCKER AND SEWER ROBERTO OCAMPO M.D.Performed By: #### PTT, HEPATIC, BMP, PT #### [place] [id number] USATroponin I High Sensitivityon 43-09-0985Eqsuxlfi I High Bfnmuxabiaj31.5 pg/mLNormal0.0-20.0The [facility] Physician GroupComment on above:Result Comment: PERFORMED BY: [place] [address] PATHOLOGIST BLOCKER AND SEWER ROBERTO OCAMPO M.D.Performed By: #### PTT, HEPATIC, BMP, PT #### [facility] [address] [place] [address] USATroponin I High Sensitivity8.9 pg/mLNormal0.0-20.0The [facility] Physician GroupComment on above:Result Comment: PERFORMED BY: [place] [address] PATHOLOGIST BLOCKER AND SEWER ROBERTO OCAMPO M.D.Performed By: #### BMP, CBC #### [facility] [address] [place] [address] USATroponin I.cardiac [Mass/volume] in Serum or Plasma by Detection limit <= 0.01 ng/Ordered By: Ria Talamantes on 04-88-0374Apxdpnfq I.cardiac DL <= 0.01 ng/mL [Mass/Vol]8.9 pg/mL0.0-20.0[facility] HospitalUrea nitrogen [Mass/volume] in Serum or PlasmaOrdered By: Ria Talamantes on 85-54-1726Mbbf nitrogen [Mass/Vol]23 mg/dLNoatrium health7-25L[facility] Memorial HospitalComment on above:Performed By: #### BMP, CBC #### [facility] [address] [place] [address] USAUrine bacteria detection by automated methodOrdered By: Ria Talamantes on 19-19-4499Qajzknky Auto Ql (U)None seenNone [facility] Medical CenterUrine clarity by refractometry automatedOrdered By: Ria Talamantes on 25-96-4898Ihdnefq Refractometry automated (U)ClearClear [facility] HospitalUrine glucose measurement by automated test strip (mass/volume)Ordered By: Ria Talamantes on 61-52-6481Ujjqqol Auto test strip (U) [Mass/Vol]Normal mg/dLNoOhioHealth Arthur G.H. Bing, MD, Cancer CenterUrine hemoglobin detection by automated test stripOrdered By: Ria Talamantes on 30-81-4840Jwfoibuodb Auto test strip Ql (U)NegativeNegativeDorothea Dix Hospitals Regional Medical CenterUrine leukocyte esterase detection by automated test stripOrdered By: Ria Talamantes on 29-59-5581Kgckbrcwo esterase Auto test strip Ql (U) NegativeNegRegency Hospital CompanyUrine pH measurement by automated test stripOrdered By: Ria Talamantes on 87-47-1855mM (U)5.5 [pH] Normal5.0-9.0[facility] HospitalComment on above:Order Comment: Name Collection Type:: Clean-Voided MidstreamPerformed By: #### PTT, HEPATIC, BMP, PT #### [facility] [address] [place] [address] USAUrine protein measurement by automated test strip (mass/volume)Ordered By: Ria Talamantes on 87-94-5988Mjjubzp (U) [Mass/Vol]30 mg/dLHighNegRegency Hospital CompanyComment on above:Order Comment: Name Collection Type:: Clean-Voided MidstreamPerformed By: #### PTT, HEPATIC, BMP, PT #### [facility] [address] [place] [id number] USAUrobilinogen Auto test strip (U) [Mass/Vol]Ordered By: Ria Talamantes on 89-03-7400Lupcdwwbzttf (U) [Mass/Vol]Normal mg/dLNormal [facility] HospitalCBC AUTO DIFFon 15-65-5321ETDT #0.1 103/ul Normal0.0-0.1The [facility] CenterComment on above:Performed By: #### CBC #### [facility] [address] [place] [address] Dr. Christina Thakkarphils/100 WBC (Bld)0.7 %Normal0.2-2.0The [facility] Comment on above:Performed By: #### CBC #### [facility] [address] [place] [address] Dr. Christina Mohan #0.2 103/ulNormal0.0-0.7The [facility]ner Medical CenterComment on above: Performed By: #### CBC #### [facility] [address] [place] [address] Dr. Christina Wanosinophils/100 WBC (Bld)1.7 %Normal0.9-7.0The [facility] Comment on above:Performed By: #### CBC #### [facility] [address] [place] [address] Dr. Christina Wanrythrocyte distribution width (RBC) [Ratio]12.6 %Kdaqzh78.0-15.0 The [facility] Medical CenterComment on above:Performed By: #### CBC #### [facility] [address] [place] [address] Dr. Christina HerediaHematocrit (Bld) [Volume fraction]43.9 %Otwnww41.0-54.0The [facility] Medical CenterComment on above:Performed By: #### CBC #### [facility] [address] [place] [address] Dr. Christina HerediaHemoglobin (Bld) [Mass/Vol]14.1 g/bWWkepvs31.0-18.0The [facility] Medical CenterComment on above:Performed By: #### CBC #### [facility] [address] [place] [address] Dr. Christina Gilmore #0.13 10e3/ulCritically high0.00-0.03The [facility] Comment on above:Performed By: #### CBC #### [facility] [address] [place] [address] Dr. Christina Gilmore %1.5 %Critically high0.0-0.5The [facility] Medical CenterComment on above:Performed By: #### CBC #### [facility] [address] [place] [address] Dr. Christina HernandezH #2.4 103/ulNormal1.2-3.8The [facility] Medical CenterComment on above:Performed By: #### CBC #### [facility] [address] [place] [address] Dr. Christina Whytemphocytes/100 WBC (Bld)27.0 %Fvnndd06.5-60.0The [facility] Medical CenterComment on above:Performed By: #### CBC #### [facility] [address] [place] [address] [address] Christina Rey DIFF REQNONormalThe [facility] Medical CenterComment on above: Performed By: #### CBC #### [facility] [address] [place] [address] Dr. Christian Flores (RBC) [Entitic mass]30.9 meUevwjy92.9-34.0The [facility] HospitalComment on above:Performed By: #### CBC #### [facility] [address] [place] [address] Dr. Christina Flores (RBC) [Mass/Vol]32.1 g/eQSfnbfa62.9-35.2The [facility] Medical CenterComment on above:Performed By: #### CBC #### [facility] [address] [place] [address] Dr. Christina Flores (RBC) [Entitic vol]96.3 fLCritically high80.0-94.0The [facility] Medical CenterComment on above:Performed By: #### CBC #### [facility] [address] [place] [address] Dr. Christina Sainz #0.6 103/ulNormal0.3-0.8The [facility] Medical CenterComment on above:Performed By: #### CBC #### [facility] [address] [place] [address] Dr. Christina Piñaocytes/100 WBC (Bld)6.4 %Normal1.7-12.0The [facility] Comment on above:Performed By: #### CBC #### [facility] [address] [place] [address] Dr. Christina Kenny #5.5 103/ulNormal1.4-6.5The [facility] Medical CenterComment on above:Performed By: #### CBC #### [facility] [address] [place] [address] Dr. Christina Cannonutrophils/100 WBC (Bld)62.7 %Axsfhi41.0-75.0The [facility] Medical CenterComment on above:Performed By: #### CBC #### [facility] [address] [place] [address] [address] Christina Clarkelet mean volume (Bld) [Entitic vol]10.8 fLNormal9.5-13.5The [facility] Medical CenterComment on above:Performed By: #### CBC #### [facility] [address] [place] [address] Dr. Christina HerediaPLT251 103/neVupfrd158-710Ane [facility] CenterComment on above: Performed By: #### CBC #### [facility] [address] [place] [address] Dr. Christina eHrediaRBC4.56 106/ulCritically low4.70-6.10The [facility] Medical CenterComment on above:Performed By: #### CBC #### [facility] [address] [place] [address] Dr. Christina HerediaWBC8.7 103/ulNormal4.0-11.0The [facility] Medical CenterComment on above: Performed By: #### CBC #### [facility] [address] [place] [address] Dr. Christina Boyce 31-23-8440XTM [Mass/Vol]mg/LNormal<=1.0The [facility] CenterComselect specialty hospital[facility] on above:Performed By: #### CRP, CMP #### [facility] [address] [place] [address] Dr. Christina Tovar 20-78-5362Hvrprjxhb (Bld) [#/Vol]NegativeNormalNEGATIVEThe [facility] Medical CenterComment on above:Performed By: #### MONO #### [facility] [address] [place] [address] Dr. Christina HerediaPROF 14(COMP METB)on 66-43-2016Ralktgc [Mass/Vol]3.3 g/dL Critically low3.5-5.0The [facility] CenterComment on above:Performed By: #### CRP, CMP #### [facility] [address] [place] [address] Dr. Christina HerediaAlbumin/Globulin [Mass ratio]0.8 {ratio}NormalCleveland Clinic Union HospitalComment on above:Performed By: #### CRP, CMP #### [facility] [address] [place] [address] [address] Christina Hanley [Catalytic activity/Vol]64 U/VMskace15-104Aiq [facility] CenterComment on above:Performed By: #### CRP, CMP #### [facility] [address] [place] [address] [address] Christina Barbosa [Catalytic activity/Vol]42 U/BZxmvlo84-76Ger [facility] CenterComment on above:Performed By: #### CRP, CMP #### [facility] [address] [place] [address] [address] Christina Flores gap [Moles/Vol]11.4 mmol/LNormalThe [facility] Comment on above:Performed By: #### CRP, CMP #### [facility] [address] [place] [address] Dr. Christina HerediaAST [Catalytic activity/Vol]18 U/MKbqbel09-92Jzk [facility] on above:Performed By: #### CRP, CMP #### [facility] [address] [place] [address] [address] Christina HerediaBilirubin [Mass/Vol]0.5 mg/dLNormal0.2-1.3The [facility] Comment on above:Performed By: #### CRP, CMP #### [facility] [address] [place] [address] [address] Christina HerediaCalcium [Mass/Vol]8.8 mg/dLNormal8.4-10.2[facility] Comment on above:Performed By: #### CRP, CMP #### [facility] [address] [place] [address] Dr. Christina HerediaChloride [Moles/Vol]109 mmol/LCritically gqtg11-696Vpx [facility] on above:Performed By: #### CRP, CMP #### [facility] [address] [place] [address] [address] Christina HerediaCO2 [Moles/Vol]24.3 mmol/OQxosfx35.0-30.0The [facility] Comment on above:Performed By: #### CRP, CMP #### [facility] [address] [place] [address] [address] Christina HerediaCreatinine [Mass/Vol]1.43 mg/dLCritically high0.66-1.25The [facility] Medical CenterComment on above:Performed By: #### CRP, CMP #### [facility] [address] [place] [address] [address] Christina WanGFR-AF SINGAPOREAN>60Normal>=60The [facility] Medical CenterComment on above:Performed By: #### CRP, CMP #### [facility] [address] [place] [address] Dr. Christina WanGFR-NON AF QKAMJUYP35 mL/min/1.66g8Atsgdvqwtd low>=60The [facility] CenterComment on above:Performed By: #### CRP, CMP #### [facility] [address] [place] [address] [address] Christina HerediaGlobulin (S) [Mass/Vol]4.1 g/dLNormalThe [facility] Medical CenterComment on above:Performed By: #### CRP, CMP #### [facility] [address] [place] [address] Dr. Christina HerediaGlucose [Mass/Vol]113 mg/dLCritically jraw08-141IlbCleveland Clinic Union HospitalComment on above:Performed By: #### CRP, CMP #### [facility] [address] [place] [address] [address] Christina HerediaPotassium [Moles/Vol]4.7 mmol/LNormal3.4-5.0[facility] Comment on above:Performed By: #### CRP, CMP #### [facility] [address] [place] [address] Dr. Christina HerediaProtein [Mass/Vol]7.4 g/dLNormal6.1-8.2[facility] Comment on above:Performed By: #### CRP, CMP #### [facility] [address] [place] [address] Dr. Yilan ChangSodium [Moles/Vol]140 mmol/FBamqno164-643Sms [facility] Comment on above:Performed By: #### CRP, CMP #### [facility] [address] [place] [address] [address] Christina Salas nitrogen [Mass/Vol]18.0 mg/dLNormal9.0-20.0The [facility] CenterComment on above:Performed By: #### CRP, CMP #### [facility] [address] [place] [address] [address] Christina Salas nitrogen/Creatinine [Mass ratio]12.6 mg/mgNoalThe [facility] Medical CenterComment on above:Performed By: #### CRP, CMP #### [facility] [address] [place] [address] [address] Christina Heredia Vital Signs Date TimeVital SignValuePerforming KwdbxkbfwJnlhscjo30-35-7863 12:30-0400 Diastolic blood rxdkuhgc10 mm[Hg]MD Costa Guevara Work Phone: [phone])[address]07-29-2024 12:30-0400 Heart rate88 /minMD Costa Guevara Work Phone: 1(860)[address] [place], [place] [address]07-29-2024 12:30-0400 Respiratory rate18 /minMD Costa Guevara Work Phone: [phone] [place], [place] [address]07-29-2024 12:30-0400 SaO2% (BldA) [Mass fraction]98 %MD Costa Guevara Work Phone: [phone] [place], [place] [address]07-29-2024 12:30-0400 Systolic blood havxvten666 mm[Hg]MD Costa Guevara Work Phone: [phone])[address]07-29-2024 09:31-0400 Body hblclo276.64 cmMD Costa Guevara Work Phone: [phone]07-29-2024 09:31-0400 Body tvocbonksbz71.2 [degF]MD Costa Guevara Work Phone: [phone])[address]07-29-2024 09:31-0400 Body iyypzb061.88 kgMD Costa Guevara Work Phone: [phone])[address] [place], [place] 346[address]01-23-2024 18:00-0500 Diastolic blood mm[Hg]MD Costa Guevara Work Phone: [phone] [place], [place] 346[address]01-23-2024 18:00-0500 Heart xvbc617 /minMD Costa Guevara Work Phone: [phone] [place], [place] [address]01-23-2024 18:00-0500 Respiratory rate20 /min Costa Josephgrisel Work Phone: [phone] [place], [place] [address]01-23-2024 18:00-0500 SaO2% (BldA) [Mass fraction]94 %MD Costa Guevara Work Phone: [phone])[address] [place], [place] [address]01-23-2024 18:00-0500 Systolic blood ntaqyibi693 mm[Hg]MD Costa Guevara Work Phone: [phone] [place], [place] 346[address]01-23-2024 12:38-0500 Body erncjn596.64 cm Costa Guevara Work Phone: [phone] [place], [place] 346[address]01-23-2024 12:38-0500 Body stuowanqqll61.2 [degF]MD Costa Guevara Work Phone: [phone])[address] [place], [place] 346[address]01-23-2024 12:38-0500 Body wluzon582.07 kgMD Costa Guevara Work Phone: [phone] [place], [place] [address]01-22-2024 12:10-0500 Heart rate92 /[facility]01-22-2024 12:10-0500 Respiratory rate20 /[facility]01-22-2024 09:00-0500 Body rxbfqhwelwg20.7 [degF][facility]01-22-2024 09:00-0500Diastolic blood mm[Hg][facility] 05-27-2023 09:00-2273ZbH2% (BldA) [Mass fraction]94 %[facility]01-22-2024 09:00-0500Systolic blood syjowbot002 mm[Hg][facility]01-22-2024 08:13-0500Inhaled oxygen flow rate1 L/minLicking Memorial Hospital01-22-2024 04:56-0500Body .3 kgLicking Memorial Hospital01-19-2024 18:51-0500Body .64 cmLicking Memorial Hospital01-19-2024 18:31-0500Diastolic blood hxruoaak46 mm[Hg]MD Costa Guevara Work Phone: 1([phone] [place], [place] [address]01-19-2024 18:31-0500 Heart froz539 /minMD Costa Guevara Work Phone: [phone] [place], [place] [address]01-19-2024 18:31-0500 Inhaled oxygen flow rate2 L/minMD Costa Guevara Work Phone: [phone] [place], [place] [address]01-19-2024 18:31-0500 Respiratory rate24 /minMD Costa Guevara Work Phone: [phone] [place], [place] [address]01-19-2024 18:31-0500 SaO2% (BldA) [Mass fraction]95 %MD Costa Guevara Work Phone: [phone] [place], [place] [address]01-19-2024 18:31-0500 Systolic blood qwelivip888 mm[Hg]MD Costa Guevara Work Phone: 1(150)[address] [place], [place] 346[address]01-19-2024 17:09-0500 Body ljelaqtlags91.6 [degF]MD Costa Guevara Work Phone: [phone])[address] [place], [place] 346[address]01-19-2024 14:35-0500 Body .64 cmMD Costa Guevara Work Phone: [phone] [place], [place] 346[address]01-19-2024 14:35-0500 Body .2 kgMD Costa Guevara Work Phone: [phone] [place] [address] Encounters Encounter DateEncounter TypeCare ProviderFacilityStart: 10-21-2024 End: 96-72-2853hdkcqlcqceFFLRSROSt. Mary's Medical Centertart: 10-21-2024 End: 46-60-6997Sirsagsde for general adult medical examination without abnormal findingsCoshocton Regional Medical Centertart: 04-15-2024 End: 44-07-2742kgfxbkfudzOPQBMQOCoshocton Regional Medical Centertart: 04-15-2024 End: 52-59-3028Qrbyvifca for other preprocedural examinationTogus VA Medical Centertart: 04-04-2024 End: 37-87-9526Kzfotxrgr department patient visitGinger E Bullimore Facility:[facility]: [facility]2024 End: 92-57-4956giwclixjplMAWZUQBCoshocton Regional Medical Centertart: 12-02-2023 End: 85-43-3157Tormgdqjn department patient visitMD Costa Hoy Work Phone: [facility]-Emergency Room Work Phone: Start: 08-28-2023 End: 26-07-1907tmrbjtbkquIT Costa M Hoy Work Phone: [facility] Work Phone: Start: 08-28-2023 End: 99-89-5192Kjmkutbxdj RecurringMD Costa Hoy Work Phone: [facility]-Infusion Therapy - O/P Work Phone: Start: 08-20-2023 End: 69-97-4022Livjmwaiq encounterMichael E Grillis DO Work Phone: [facility] SurgeryStart: 08-13-2023 End: 51-47-8006Hrluvo OnlyNot In System Ref ProvProMedica Physicians General SurgeryStart: 03-85-5471Pafnqx OnlyNot In System Ref ProvProMedica Physicians General SurgeryStart: 05-28-2023 End: 72-69-6388Jrdieuxrw department patient visitMD Costa Hoy Work Phone: [facility]-Emergency Room Work Phone: Start: 05-24-2023 End: 82-07-7037Zzepskumyu and management of inpatientMD Costa Guevara Work Phone: [facility] Work Phone: Start: 53-59-9541Juo-patient / Non-visitI[facility] Work Phone: Start: 03-10-2021 End: 67-64-3208lheuxlxpbrIX COSTA GUEVARAFacility:H1 Procedures DateProcedureProcedure DetailPerforming ClinicianStart: 94-18-5076MRIQFAVQ LABS Not In System Ref ProvStart: 73-03-0709WLNYK CULTURE SURGICAL DEEP INCLUDES GRAM STAINNot In System Ref ProvStart: 05-28-2023 End: 91-66-5618Jpkeq chest X-rayMD Costa Guevara Work Phone: [phone]: 30-17-1428HU angiography of thoraxMD Costa Guevara Work Phone: Start: 09-26-9539XYFQ-CoV-2, Influenza & RSV (PCR)MD Costa Guevara Work Phone: Plan of Treatment DateCare ActivityDetailAuthorStart: 35-44-4018Tjshgwhuy vaccinationInfluenza VaccineProWooster Community Hospitalca Health SystemStart: 77-30-2369Azposv scan of lower limb veinsUS venous duplex LE [facility]: 93-99-3650DI Lower [facility]: 58-82-3198Ragazm scan of lower limb veinsUS venous duplex LE [facility] Start: 28-03-4546EM Lower extremity vein - [facility]: 48-76-8240IanicvjgpProvidence Hospitaltart: 05-24-2023 Hospital admissionProvidence Hospitaltart: 40-54-9709NjaxnqlhlProvidence Hospitaltart: 83-53-1771Diggwwuy identified in Blood by Culture [facility]: 54-15-6591Ayzzqgjqiezeyw of varicella zoster vaccineZoster (Shingles) Vaccine (1 of 2)[facility]: 62-46-9020KPgW,Tdap and Td Vaccines (1 - Tdap)DTaP,Tdap and Td Vaccines (1 - Tdap)[facility]: 25-35-5935Wielr BMI ScreeningAdult BMI ScreeningProAvita Health System Ontario Hospitaltart: 58-94-9603Lqugpolgxx ScreeningDepression ScreeningFormerly [facility] Hospitaltart: 02-02-8114Mluldqc ScreeningTobacco ScreeningSalem City HospitalPatient EducationOhiohealth Hardin Memorial [facility]tr Work Phone: Patient referralOhiohealth [facility]in [facility] Work Phone: Immunizations Immunization DateImmunizationNotesCare MihbzdnwEburjlbe92-59-8172qyuvuzgym, injectable, quadrivalent, preservative freeLicking Memorial Hospital 59-02-6606MFNJY Tha Freire (Pfizer)MD Costa Guevara Work Phone: [facility]04-08-2021COVID-19 Tha Freire (Pfizer)MD Costa Guevara Work Phone: [phone] [place], [place] [address]11-19-2019tetanus toxoid, reduced diphtheria toxoid, and acellular pertussis vaccine, adsorbedMD Costa Guevara Work Phone: [phone] [place] [address] Payers DatePayer CategoryPayerPolicy [id number] of Defense ( and others)[id number] of Defense ( and others)[id number] Social History DateTypeDetailFacilityStart: 05-24-2023 End: 36-67-3023Xuyezbr smoking status NHISNever smoked tobacco (finding) [facility]: 34-92-9591Rir Assigned At BirthMale [facility] HospitalTobacc smoking status NHISTobacco smoking consumption unknownFulton County Health Center SystemStart: 51-41-2323Zci assigned at Not on [facility] CenterGender identityNot on [facility] Clinical Notes 08-20-2023 to 10-21-2024 Note Date & LaglQidlOlbvhjdd31-36-9077 NotePatient is here today for a 6 month follow up. Patient states he is doing well. Patient states he is doing well and has no cardiac complaints at this time. Review of Systems Constitutional: Negative.[facility]06-18-2025 Note Cardiovascular Medicine [facility] SUBJECTIVE Chief Complaint Patient presents with Atrial Fibrillation Rob Ray is a 59 y.o. male here [...] syncope. Denies bleeding issues. He works for [employer]. He underwent a cardioversion 09/25/2023. This was [...] Essential hypertension GERD (gastroesophageal reflux disease) A-fib ([facility]) SVT (supraventricular tachycardia) Acute diastolic HF (heart failure) ([facility]) Acute pain of right foot Bacteremia due to Streptococcus pneumoniae Benign paroxysmal positional vertigo BMI 50.0-59.9, adult ([facility]) Cellulitis Dog bite Dyspnea Hyperglycemia Hypoxia Sepsis ([facility]) Prediabetes Pneumonia Morbid obesity ([facility]) Leg edema Infection, streptococcus pneumoniae Strain of calf muscle Past Medical History: Diagnosis Date Abnormal ECG Arrhythmia Atrial fibrillation ([facility]) CHF (congestive heart failure) ([facility]) Congestive heart failure ([facility]) 08/20/2023 Deep vein thrombosis ([facility]) 2004 left leg GERD (gastroesophageal reflux disease) Hiatal hernia Hypertension Persistent atrial fibrillation (CMS/HCC) SVT (supraventricular tachycardia) Family History Problem Relation [...] Neurological: General: No foc (more content not included)...[facility]12-11-2024 NoteCardiovascular Medicine [facility] SUBJECTIVE Chief Complaint Patient presents with Atrial Fibrillation Rob Ray is a 59 y.o. male here [...] syncope. Denies bleeding issues. He works for [employer]. He underwent a cardioversion 09/25/2023. This was [...] Essential hypertension GERD (gastroesophageal reflux disease) A-fib ([facility]) SVT (supraventricular tachycardia) ([facility]) Acute diastolic HF (heart failure) ([facility]) Acute pain of right foot Bacteremia due to Streptococcus pneumoniae Benign paroxysmal positional vertigo BMI 50.0-59.9, adult ([facility]) Cellulitis Dog bite Dyspnea Hyperglycemia Hypoxia Sepsis ([facility]) Prediabetes Pneumonia Morbid obesity ([facility]) Leg edema Infection, streptococcus pneumoniae Strain of calf muscle Past Medical History: Diagnosis Date Abnormal ECG Arrhythmia Atrial fibrillation ([facility]) CHF (congestive heart failure) ([facility]) Congestive heart failure ([facility]) 08/20/2023 Deep vein thrombosis ([facility]) 2004 left leg GERD (gastroesophageal reflux disease) Hiatal hernia Hypertension Persistent atrial fibrillation ([facility]) SVT (supraventricular tachycardia) ([facility]) Family History Problem Relation Name Age of [...] present. Mental Status: He (more content not included)...[facility]12-11-2024 NotePatient here for 2 mo follow up PAF, HFpEF, and hypertension. He [...] pain. All other systems reviewed and are negative.[facility] 04-14-2024 NoteAddendum created 04/14/24 1218 by April Andre MD Attestation recorded in Intraprocedure, Care Path modified, Flowsheet accepted, Intraprocedure Attestations filedUniversMercy Health Clermont Hospital10-23-2024 NotePatient here for follow up afib ablation on 01/29/[address] Cat. Still feels ok s/p ablation. Denies chest pain, palpitations, and bleeding on Eliquis. He would like to stop amiodarone if possible. Review of Systems Cardiovascular: Positive for dyspnea on exertion and leg swelling. All other systems reviewed and are negative.[facility] 02-26-2024 NoteCardiovascular Medicine [facility] SUBJECTIVE Chief Complaint Patient presents with Atrial [...] syncope. Denies bleeding issues. He works for [employer]. He underwent a cardioversion 09/25/2023. This was [...] Atrial fibrillation (CMS/HCC) Deep vein thrombosis (CMS/HCC) 2004 left leg GERD (gastroesophageal reflux disease) Hiatal [...] Psychiatric: Mood and Aff (more content not included)...[facility] 08-20-2023 Miscellaneous Notes* Telephone Encounter - Mary Lind - 08/20/2023 2:33 PM EDT Rob's charges has come back as the ID# is not correct. It is the information that we received from [facility]. Called Rob and the number is no longer in service. Called April/'s number and the mailbox is full. I did send an SMS of our phone number. * Telephone Encounter - Mary Lind - 08/20/2023 2:33 PM EDT Since we have not heard back from patient's , I called Dr Guevara's office and spoke to Christel and she is to fax me a copy of Rob's card. * Telephone Encounter - Mary Lind - 08/20/2023 2:[address] Guevara's office had the same information as we did. Registration was able to get his correct ID# and the claims were resubmitted. documented in this encounterSalem City Hospital04-16-2024 Telephone encounter Note* Telephone Encounter - Mary Lind - 08/20/2023 2:33 PM EDT Rob's charges has come back as the ID# is not correct. It is the information that we received from [facility]. Called Rob and the number is no longer in service. Called April/'s number and the mailbox is full. I did send an SMS of our phone number. [facility]04-16-2024 Telephone encounter Note* Telephone Encounter - Mary Lind - 08/20/2023 2:33 PM EDT Since we have not heard back from patient's , I called Dr Guevara's office and spoke to Christel and she is to fax me a copy of Rob's card. [facility]04-16-2024 Telephone encounter Note* Telephone Encounter - Mary Lind - 08/20/2023 2:[address] Guevara's office had the same information as we did. Registration was able to get his correct ID# and the claims were resubmitted. [facility] HospitalEvaluation note* Diagnosis Onset Date Resolution Status Atrial fibrillation with RVR acuteHypoxiaacutePneumoniaacuteSepsisaMartins Ferry Hospital [facility]tr Work Phone: Evaluation note* Diagnosis Onset Date Resolution Status Atrial fibrillation with RVR acuteBacteremia due to Streptococcus pneumoniaeacuteBMI 50.0-59.9, adultacute HyperglycemiaacuteHypoxiaacuteInfection, streptococcus pneumoniaeacuteLeg edema acutePneumoniaacuteSepsisaMartins Ferry Hospital Ctr Work Phone: Evaluation noteNo assessment information available [facility] Work Phone: Hospital Discharge instructionsAmbulatory Orders* DME Home Medical Equipment Time Frame: 1 Day, Location: Determined By Patient Additional Instructions Wound care: - Every 2 days - left leg- clean wounds with vashe, apply skin prep to tam wound, apply silver sorb gel to wound bed and place Telfa/non-stick dressing/Large band-aid. [facility] Work Phone: InstructionsNot on filedocumented in this encounter [facility] SystemInstructionsNot on filedocumented in this encounter [facility] Summary Purpose Family History No Family History Records Found Relationship Condition Age at Onset Recorded Date/T ly Not Specified Cerebrovascular accident (CVA) Unknown Not SpecifiedCerebral aneurysmUnknown Relationship Condition Age at Onset Recorded Date/T ly mother Cerebrovascular accident (CVA) Unknown motherCerebral aneurysmUnknown Advance Directives No Advanced Directives Records Found [...] Sepsis Chief Complaint Shortness of Breath ankle swellingReason for VisitAtrial fibrillation with RVR Bacteremia due to Streptococcus pneumoniae BMI 50.0-59.9, adult Hyperglycemia Hypoxia Infection, streptococcus pneumoniae Leg edema Pneumonia Sepsis Chief Complaint L.Lower Extremedity abscess Chief Complaint rt leg pain Additional Source Comments (unrecognized sect ion and content) No Status Records FoundNo Status Records FoundNo Status Records Found INFORMATION SOURCE (unrecogn ized section and content) DATE CREATED AUTHOR 03/17/2021 [facility] DATE CREATED AUTHOR AUTHOR'S ORGANIZ ATION 04/15/2024 [facility] DATE CREATED AUTHOR AUTHOR'S ORGANIZ ATION 02/06/2025 [facility] Care Teams (unrecognized sec tion [...] Care Provider Active Start: May 24, 2023 Zurdo Funes ProviderActiveStart: May 24, 2023 Arturo Dolan , DOAdmit Provider, Attending ProviderActiveStart: May 24, 2023 Team Status: Active Member Role Status Dates Costa Guevara MD Primary Care Provider Active Start: May 24, 2023 Bassem Lopez , Emerabimael ProviderActiveStart: May 24, 2023 Arturo Dolan , DOAdmit Provider, Other ProviderActiveStart: May 24, 2023 Maddi Leone APRNAtdorothy ProviderActiveStart: May 24, 2023 Delvis Myles DOOther ProviderActiveStart: May 24, 2023 Mony Orozco MDOther ProviderActiveStart: May 24, 2023 Rob Schreiber MDOther ProviderActiveStart: May 24, 2023 Linh Paz MDOther ProviderActiveStart: May 24, 2023 Anthony Rossi MDOther ProviderActiveStart: May 24, 2023 Leigh Garrido APRNOther ProviderActiveStart: May 24, 2023 Sweta Colbert MDOther ProviderActiveStart: May 24, 2023 Carrie Benedict MDOther ProviderActiveStart: May 24, 2023 Corky Ge MDOther ProviderActiveStart: May 24, 2023 JOSY Kern-BCOther ProviderActiveStart: May 24, 2023 Shana Angeles MDOther ProviderActiveStart: May 24, 2023 Team Status: Inactive Member Role Status Dates Costa Guevara MD Primary Care Provider Active Start: May 28, 2023 End: May 28KITTY Hobbs-Lisa ProviderActiveStart: May 28, 2023 End: May 28, 2023 Team Status: Inactive Member Role Status Dates Costa Guevara MD Primary Care Provider Active Start: December 02, 2023 End: December 01Zurdo Loya ProviderActiveStart: December 02, 2023 End: December 02, 2023Team MemberRelationshipSpecialtyStart DateEnd Date Costa Guevara MD [address] [place] [address] PCP - [facility] Medicine08/01/23Team MemberRelationshipSpecialtyStart DateEnd Date Costa Guevara MD [address] [place] [address] PCP - [facility]08/01/23 Goals (unrecognized section and content) Goals may [...] BE BASED ON THE PRIMARY CLINICAL RECORDS. [facility]. provides no warranty or guarantee of the accuracy or completeness of information in this document.
[2025-03-09 09:15] LABS: Hematocrit 48.9 % (42.0-54.0); Hemoglobin 16.1 g/dL (14.0-18.0); Immature Granulocytes Abs Auto 0.04 10^3/uL (0.00-0.03); Immature Granulocytes Pct Auto 0.5 % (0.0-0.5); Lymphocytes Absolute Auto 2.0 10^3/uL (1.2-3.8); Mean Corpuscular HGB Conc 32.9 g/dL (29.9-35.2); Mean Corpuscular Hemoglobin 31.0 pg (25.9-34.0); Mean Corpuscular Volume 94.0 fL (80.0-94.0); Platelet Count 220 10^3/uL (150-450); Red Blood Count 5.20 10^6/uL (4.70-6.10); White Blood Count 7.4 10^3/uL (4.0-11.0)
[2025-03-09 09:40] LABS: Alanine Aminotransferase 27 U/L (16-63); Albumin Globulin Ratio 0.8; Albumin Level 3.9 g/dL (3.4-5.0); Alkaline Phosphatase 105 U/L (46-116); Anion Gap 15.8; Aspartate Amino Transferase 17 U/L (15-37); Blood Urea Nitrogen 19.0 mg/dL (7.0-18.0); Calcium 9.0 mg/dL (8.5-10.1); Carbon Dioxide 27.3 mmol/L (21.0-32.0); Chloride 105 mmol/L (98-107); Cholesterol 189 mg/dL (<=200); Estimated GFR (African America >60 (>=60 mL/min/1.73m^2); Estimated GFR (Non-African Ame 58 (>=60 mL/min/1.73m^2); Globulin 4.6 g/dL; Glucose 97 mg/dL (74-106); HDL Cholesterol 47 mg/dL (40-60); Potassium 4.1 mmol/L (3.5-5.1); Sodium 144 mmol/L (136-145); TSH W/ REFLEX FT4 1.292 uIU/mL (0.358-3.740); Total Protein 8.5 g/dL (6.4-8.2); Triglycerides 91 mg/dL (<=150); VLDL CHOLESTEROL 18.2 mg/dL
== END 2025-03-09 08:54 | disposition home or self-care (01) ==
LOC: LAB 08:56
PROVIDERS: PCP Family Medicine; Visit Provider Family Medicine
DX: Z00.00 Encounter for general adult medical examination without abnormal findings (principal); I10 Essential (primary) hypertension; I48.0 Paroxysmal atrial fibrillation
CPT/HCPCS: 36415; 80053; 80061; 84443; 85025